=== PATIENT | male | born 1940 | race Caucasian/White ===

== ENCOUNTER → 2016-03-30 | Outpatient (CLI) | payer BC, MEDICARE ==
[~2016-03-30] MED LIST: /PANT40TA OR; ALLO300T OR; ASPI81TA83 OR; CRES40TA OR; Lasix PO; METO25TA2 OR; NEUR400C OR; NIAS500T2 OR; NITRO; PLAV75TA2 OR; RAMI25CA OR; VITAMIN D50000 UNT OR
--- NOTE | 2016-03-30 11:13 | REP ---
CHEST X-RAY: Three views. HISTORY: Acute bronchitis. Shortness of breath and cough. Comparison is made with prior radiographs from January 17, 2015. FINDINGS: The patient is status post prior median sternotomy. Heart is mildly enlarged, cardiothoracic ratio measuring 17.2 cm/34.7 cm. The aorta is tortuous. Mediastinal clips are noted. Pleural angles are sharp. No infiltrate is seen. Interstitial markings are somewhat increased however bilaterally. There is new plate-like atelectasis in the lingular segment of the left upper lobe. IMPRESSION: Prior sternotomy. Mild cardiomegaly. Linear fibrosis versus discoid atelectasis in the lingular segment of the left upper lobe. Otherwise no acute disease. Signed by Joel Cooney MD 03/30/2016 02:00 P
== END ==
LOC: M ADAMS 10:21
PROVIDERS: ATTEND Physician Assistant Medical
DX: I51.7 Cardiomegaly (principal); J20.9 Acute bronchitis, unspecified; Z98.890 Other specified postprocedural states

== ENCOUNTER → 2016-04-18 | Outpatient (REF) | payer BC, MEDICARE ==
[2016-04-18 13:14] LABS: ALBUMIN 3.8 GM/DL (3.2-5.2); ALBUMIN/GLOBULIN RATIO 1.12 (1.00-1.93); ALKALINE PHOSPHATASE 86 U/L (45-117); ALT/SGPT 30 U/L (12-78); ANION GAP 7 MEQ/L (8-16); AST/SGOT 22 U/L (15-37); BILIRUBIN,TOTAL 0.4 MG/DL (0.2-1.0); BLOOD UREA NITROGEN 18 MG/DL (7-18); CALCIUM LEVEL 9.7 MG/DL (8.8-10.2); CARBON DIOXIDE LEVEL 30 MEQ/L (21-32); CHLORIDE LEVEL 107 MEQ/L (98-107); CHOLESTEROL LEVEL 199 MG/DL (<200); CREATININE FOR GFR 0.87 MG/DL (0.70-1.30); GLOMERULAR FILTRATION RATE > 60.0 (>42); GLUCOSE, FASTING 79 MG/DL (83-110); POTASSIUM SERUM 4.1 MEQ/L (3.5-5.1); SODIUM LEVEL 144 MEQ/L (136-145); TOTAL PROTEIN 7.2 GM/DL (6.4-8.2); TRIGLYCERIDES LEVEL 242 MG/DL (<150); URIC ACID 3.9 MG/DL (3.5-7.2)
== END ==
LOC: M LABDRWAD 12:17
PROVIDERS: ATTEND Emergency Medicine
DX: E29.1 Testicular hypofunction (principal); I10 Essential (primary) hypertension; M10.9 Gout, unspecified; E55.9 Vitamin D deficiency, unspecified
CPT/HCPCS: 80053; 80061; 82306; 84402; 84403; 84550; G0103

== ENCOUNTER → 2016-07-03 | Outpatient (CLI) | payer BC, MEDICARE ==
--- NOTE | 2016-07-04 07:39 | REP ---
Clinical: Acute/chronic cough. Technique: PA and lateral. Comparison: 03/30/2016. Findings: Mediastinum and cardiac silhouette appear normal. Evidence of prior sternotomy and CABG noted. Lung diaz demonstrate diffuse chronic and coarsened interstitial changes. Differential diagnosis includes chronic reactive airway disease/asthma and acute bronchitis. No focal consolidation. No effusion. No pneumothorax. Skeletal structures intact. Impression: Diffuse coarsened interstitial changes. Differential diagnosis includes chronic disease, reactive airway disease/asthma, and acute bronchitis. No focal consolidation. Signed by Yuval Forbes MD 07/04/2016 07:31 A
== END ==
LOC: M ADAMS 08:22
PROVIDERS: ATTEND Emergency Medicine
DX: J20.9 Acute bronchitis, unspecified (principal)

== ENCOUNTER → 2016-07-06 | Outpatient (REF) | payer BC, MEDICARE ==
[2016-07-06 13:50] LABS: BASO % 0.1 % (0.0-1.0); EOS % 0.1 % (0.0-3.0); LARGE UNSTAINED CELL # 0.1 K/mm3 (0.0-0.4); LYMPH # 0.8 K/mm3 (1.5-4.5); LYMPH % 8.4 % (24.0-44.0); MEAN CORPUSCULAR HEMOGLOBIN 32.3 pg (27.0-33.0); MEAN CORPUSCULAR HGB CONC 33.8 g/dl (32.0-36.5); MEAN CORPUSCULAR VOLUME 95.6 fl (80.0-96.0); MONO # 0.3 K/mm3 (0.0-0.8); MONO % 3.8 % (0.0-5.0); NEUTROPHILS % 86.4 % (36.0-66.0); PLATELET COUNT, AUTOMATED 157 k/mm3 (150-450); WHITE BLOOD COUNT 8.2 K/mm3 (4.0-10.0)
== END ==
LOC: M LAB REF 12:47
PROVIDERS: ATTEND Internal Medicine Pulmonary Disease
DX: R05 Cough (principal)

== ENCOUNTER → 2016-10-16 | Outpatient (REF) | payer BC, MEDICARE ==
[~2016-10-16] MED LIST changes: +ALLO100T PO; +ANDR1.62 TOP; +ASPI1TAB15 PO; +AZEL1SPR3; +BENZ200C53 PO; +CIAL2.5T PO; +CLOP75TA2 PO; +CRES40TA PO; +DRIS50002 PO; +FLON1SPR; +FLUTISP; +GABA-283 PO; +GABA600T PO; +GUAI5ELAC PO; +LASI20TA PO; +LORA10TA2 PO; +NITR4TASL SL; +PANT40TA2 PO; +PERCOCET PO
[2016-10-16 13:54] LABS: ALBUMIN 3.8 GM/DL (3.2-5.2); ALBUMIN/GLOBULIN RATIO 1.31 (1.00-1.93); ALKALINE PHOSPHATASE 55 U/L (45-117); ALT/SGPT 23 U/L (12-78); ANION GAP 7 MEQ/L (8-16); AST/SGOT 19 U/L (15-37); BILIRUBIN,TOTAL 0.6 MG/DL (0.2-1.0); BLOOD UREA NITROGEN 19 MG/DL (7-18); CALCIUM LEVEL 9.1 MG/DL (8.8-10.2); CARBON DIOXIDE LEVEL 27 MEQ/L (21-32); CHLORIDE LEVEL 109 MEQ/L (98-107); CHOLESTEROL LEVEL 131 MG/DL (<200); CREATININE FOR GFR 0.82 MG/DL (0.70-1.30); GLOMERULAR FILTRATION RATE > 60.0 (>42); GLUCOSE, FASTING 88 MG/DL (83-110); POTASSIUM SERUM 4.3 MEQ/L (3.5-5.1); SODIUM LEVEL 143 MEQ/L (136-145); TOTAL PROTEIN 6.7 GM/DL (6.4-8.2); TRIGLYCERIDES LEVEL 187 MG/DL (<150); URIC ACID 4.5 MG/DL (3.5-7.2)
== END ==
LOC: M LABDRAW1 11:59
PROVIDERS: ATTEND Emergency Medicine
DX: I10 Essential (primary) hypertension (principal); M10.9 Gout, unspecified; E55.9 Vitamin D deficiency, unspecified; E78.2 Mixed hyperlipidemia

== ENCOUNTER → 2017-05-06 | Outpatient (REF) | payer BC, MEDICARE ==
[2017-05-06 13:04] LABS: ALBUMIN 3.3 GM/DL (3.2-5.2); ALBUMIN/GLOBULIN RATIO 0.92 (1.00-1.93); ALKALINE PHOSPHATASE 82 U/L (45-117); ALT/SGPT 20 U/L (12-78); ANION GAP 7 MEQ/L (8-16); AST/SGOT 16 U/L (7-37); BILIRUBIN,TOTAL 0.4 MG/DL (0.2-1.0); BLOOD UREA NITROGEN 12 MG/DL (7-18); CALCIUM LEVEL 8.7 MG/DL (8.8-10.2); CARBON DIOXIDE LEVEL 29 MEQ/L (21-32); CHLORIDE LEVEL 105 MEQ/L (98-107); CHOLESTEROL LEVEL 128 MG/DL (<200); CREATININE FOR GFR 0.72 MG/DL (0.70-1.30); GLOMERULAR FILTRATION RATE > 60.0 (>42); GLUCOSE, FASTING 83 MG/DL (70-100); HDL CHOLESTEROL 40 MG/DL (>40); LDL CHOLESTEROL 50.2 MG/DL (<100); NON-HDL-C 88 MG/DL; POTASSIUM SERUM 3.9 MEQ/L (3.5-5.1); PSA SCREENING 2.67 NG/ML (< 4.0); SODIUM LEVEL 141 MEQ/L (136-145); TOTAL PROTEIN 6.9 GM/DL (6.4-8.2); TRIGLYCERIDES LEVEL 189 MG/DL (<150)
[2017-05-06 20:53] LABS: TOTAL 25(OH) VITAMIN D 34.9 NG/ML (30.0-100.0)
[2017-05-08 00:06] LABS: TESTOSTERONE FREE (DIRECT) 3.6 pg/mL (6.6-18.1)
== END ==
LOC: M LABDRAW1 11:12
DX: E29.1 Testicular hypofunction (principal); I10 Essential (primary) hypertension; E78.2 Mixed hyperlipidemia; M10.9 Gout, unspecified; E55.9 Vitamin D deficiency, unspecified

== ENCOUNTER → 2017-05-15 | Outpatient (REF) | payer BC, MEDICARE | LOC: M SMT 16:50 | DX: R97.20 Elevated prostate specific antigen [PSA] (principal) | CPT/HCPCS: 87086 ==

== ENCOUNTER → 2017-08-07 | Outpatient (REF) | payer BC, MEDICARE ==
[2017-08-07 19:41] LABS: PSA SCREENING 0.91 NG/ML (< 4.0)
== END ==
LOC: M SMT 10:27
DX: R97.20 Elevated prostate specific antigen [PSA] (principal)
CPT/HCPCS: G0103

== ENCOUNTER → 2017-10-17 | Outpatient (REF) | payer BC, MEDICARE ==
[2017-10-17 20:07] LABS: HEMATOCRIT 42.4 % (42.0-52.0); HEMOGLOBIN 13.9 g/dl (13.5-17.5); MEAN CORPUSCULAR HEMOGLOBIN 31.3 pg (27.0-33.0); MEAN CORPUSCULAR HGB CONC 32.8 g/dl (32.0-36.5); MEAN CORPUSCULAR VOLUME 95.5 fl (80.0-96.0); PLATELET COUNT, AUTOMATED 189 10^3/uL (150-450); RED BLOOD COUNT 4.44 10^6/uL (4.30-6.10); RED CELL DISTRIBUTION WIDTH 14.6 % (11.5-14.5); WHITE BLOOD COUNT 7.4 10^3/uL (4.0-10.0)
[2017-10-17 20:10] LABS: ALKALINE PHOSPHATASE 76 U/L (45-117); ALT/SGPT 23 U/L (12-78); ANION GAP 8 MEQ/L (8-16); AST/SGOT 17 U/L (7-37); BLOOD UREA NITROGEN 13 MG/DL (7-18); CALCIUM LEVEL 9.2 MG/DL (8.8-10.2); CARBON DIOXIDE LEVEL 28 MEQ/L (21-32); CHLORIDE LEVEL 109 MEQ/L (98-107); CREATININE FOR GFR 0.85 MG/DL (0.70-1.30); GLOMERULAR FILTRATION RATE > 60.0 (>42); GLUCOSE, FASTING 77 MG/DL (70-100); POTASSIUM SERUM 4.7 MEQ/L (3.5-5.1); SODIUM LEVEL 145 MEQ/L (136-145)
[2017-10-17 20:11] LABS: ALBUMIN 3.8 GM/DL (3.2-5.2); ALBUMIN/GLOBULIN RATIO 1.09 (1.00-1.93); BILIRUBIN,TOTAL 0.4 MG/DL (0.2-1.0); FREE T4 0.84 NG/DL (0.76-1.46); THYROID STIMULATING HORMONE 0.846 uIU/ML (0.358-3.740); TOTAL PROTEIN 7.3 GM/DL (6.4-8.2)
[2017-10-17 20:13] LABS: FOLATE 8.1 NG/ML; VITAMIN B12 LEVEL 343 PG/ML
== END ==
LOC: M SFHCADAM 15:04
DX: K21.9 Gastro-esophageal reflux disease without esophagitis (principal); D64.9 Anemia, unspecified; R25.1 Tremor, unspecified; I25.10 Atherosclerotic heart disease of native coronary artery without angina pectoris
CPT/HCPCS: 82746

== ENCOUNTER → 2017-11-15 | Outpatient (REF) | payer BC, MEDICARE ==
[2017-11-15 12:34] LABS: MEAN CORPUSCULAR HEMOGLOBIN 31.5 pg (27.0-33.0); MEAN CORPUSCULAR HGB CONC 33.3 g/dl (32.0-36.5); MEAN CORPUSCULAR VOLUME 94.6 fl (80.0-96.0); PLATELET COUNT, AUTOMATED 211 10^3/uL (150-450); RED BLOOD COUNT 4.44 10^6/uL (4.30-6.10); RED CELL DISTRIBUTION WIDTH 14.3 % (11.5-14.5); WHITE BLOOD COUNT 7.5 10^3/uL (4.0-10.0)
[2017-11-15 12:52] LABS: ALBUMIN 3.9 GM/DL (3.2-5.2); ALBUMIN/GLOBULIN RATIO 1.03 (1.00-1.93); ALKALINE PHOSPHATASE 79 U/L (45-117); ALT/SGPT 20 U/L (12-78); ANION GAP 4 MEQ/L (8-16); AST/SGOT 16 U/L (7-37); BILIRUBIN,DIRECT 0.2 MG/DL (0.0-0.2); BILIRUBIN,TOTAL 0.6 MG/DL (0.2-1.0); BLOOD UREA NITROGEN 14 MG/DL (7-18); CALCIUM LEVEL 8.9 MG/DL (8.8-10.2); CARBON DIOXIDE LEVEL 30 MEQ/L (21-32); CHLORIDE LEVEL 106 MEQ/L (98-107); CHOLESTEROL LEVEL 115 MG/DL (<200); CHOLESTEROL RISK RATIO 2.738 (<5); CREATININE FOR GFR 0.85 MG/DL (0.70-1.30); GLOMERULAR FILTRATION RATE > 60.0 (>42); GLUCOSE, FASTING 83 MG/DL (70-100); HDL CHOLESTEROL 42 MG/DL (>40); LDL CHOLESTEROL 39 MG/DL (<100); NON-HDL-C 73 MG/DL; POTASSIUM SERUM 4.1 MEQ/L (3.5-5.1); SODIUM LEVEL 140 MEQ/L (136-145); TOTAL PROTEIN 7.7 GM/DL (6.4-8.2); TRIGLYCERIDES LEVEL 170 MG/DL (<150)
== END ==
LOC: M LABDRWAD 12:12
DX: I25.10 Atherosclerotic heart disease of native coronary artery without angina pectoris (principal)
CPT/HCPCS: 80076

== ENCOUNTER → 2018-03-14 | Outpatient (CLI) | payer BC, MEDICARE ==
[~2018-03-14] MED LIST changes: -BENZ200C53 PO; +BENZ200C70 PO; -DRIS50002 PO; +DRIS50003 PO; -GABA-283 PO; +GABA-845 PO; -GABA600T PO; +GABA600T4 PO; +GUAI1SOL7 PO; -GUAI5ELAC PO; +ISOVUE-370 76% 100ML VIAL (Q9967) As Ordered ONE; -LASI20TA PO; +LASI20TA3 PO; -LORA10TA2 PO; +LORA10TA3 PO; -PANT40TA2 PO; +PANT40TA3 PO
--- NOTE | 2018-03-14 14:43 | REP ---
CT ANGIOGRAM ABDOMEN PELVIS WITH IV CONTRAST ONLY: 03/14/2018. COMPARISON: CT abdomen pelvis 01/01/2017. CLINICAL HISTORY: Abdominal aortic aneurysm, assess for stent graft endoleak. TECHNIQUE: The patient received a bolus 100 ml I[address] angiogram techniques utilized in the abdomen pelvis. Coronal and sagittal reconstruction with standard views and MIP coronal reconstructions with curve reformatting and reconstructions of the right and left iliac vessels and aorta. 3-D surface renderings also construct. NONVASCULAR FINDINGS: CT ABDOMEN: Lung bases with minor dependent atelectatic and fibrotic changes without effusion or infiltrate. Heart size unchanged. No hiatal hernia. Liver, spleen, gallbladder, pancreas and left adrenal gland are normal. The right adrenal gland shows a 1.6 cm low density nodule unchanged likely an adrenal adenoma. No calcified gallstone is seen. Multiple renal cysts on the left are unchanged. There is lobation. No hydronephrosis, hydroureter or ureteral stone. The small bowel loops are not abnormally dilated colon with stool and gas scattered throughout the abdominal portions. Lung windows show no perforation or free air. There is no ascites or abscess. Bone windows are unchanged. Degenerative disc changes at all lumbar levels sparing the L4-5. No acute compression or destructive lesion. There is facet arthropathy. Lower thoracic spine and the visualized ribs are intact. CT PELVIS: The sacrum, pelvis, hips, SI joints and pubic rami show only minor degenerative change without destructive lesion or fracture. The distal left colon and sigmoid show some diverticulosis without diverticulitis, colitis or mass. No abdominal or pelvic lymphadenopathy. There are no inflammatory changes about the cecum. No ventral midline hernia. I see no inguinal hernia or adenopathy. There are surgical clips about the right inguinal canal overlying the femoral vessels. The bladder without wall thickening mass or stone. Prostate enlarged with some calcifications. VASCULAR FINDINGS: There is a stent graft is noted from the level of the renal artery takeoffs into the distal common iliac arteries. Contrast seen throughout the stent grafts. However, there is a zone of hyperdensity anterior to the proximal half of the graft in its midportion well below the upper most graft limit. Ir is extending for a few centimeters and adjacent to this is contrast filled inferior mesenteric artery. I see no other abnormal finding related to the graft. Ectasia of the iliac vessels and atherosclerotic calcifications are noted of the external iliac and common femoral arteries. IMPRESSION: 1. There is an endoleak of the stent graft overlying the mid portion of the aortic aspect of the graft anteriorly and I suspect this is a type 2 endoleak with retrograde flow from the FRANCK. 2. Abdominal aortic aneurysm. Ectasia of the iliac vessels as before. 3. Renal cysts, diverticulosis of the sigmoid and distal left colon and a stable nodule in the right adrenal gland most consistent with adrenal adenoma as before. No other changes. Electronically Signed by Jon Blanco MD 03/14/2018 05:01 P
== END ==
LOC: M RAD 09:55
PROVIDERS: ATTEND Surgery Vascular Surgery
DX: I71.4 Abdominal aortic aneurysm, without rupture (principal)
CPT/HCPCS: 74174; Q9967

== ENCOUNTER → 2018-03-19 | Outpatient (REF) | payer BC, MEDICARE ==
[~2018-03-19] MED LIST changes: -ISOVUE-370 76% 100ML VIAL (Q9967) As Ordered ONE
[2018-03-19 13:08] LABS: HEMATOCRIT 42.1 % (42.0-52.0); HEMOGLOBIN 13.8 g/dl (13.5-17.5); MEAN CORPUSCULAR HEMOGLOBIN 31.5 pg (27.0-33.0); MEAN CORPUSCULAR HGB CONC 32.8 g/dl (32.0-36.5); MEAN CORPUSCULAR VOLUME 96.1 fl (80.0-96.0); PLATELET COUNT, AUTOMATED 182 10^3/uL (150-450); RED BLOOD COUNT 4.38 10^6/uL (4.30-6.10); WHITE BLOOD COUNT 6.5 10^3/uL (4.0-10.0)
[2018-03-19 13:24] LABS: ALBUMIN 3.8 GM/DL (3.2-5.2); ALT/SGPT 16 U/L (12-78); BILIRUBIN,TOTAL 0.4 MG/DL (0.2-1.0); BLOOD UREA NITROGEN 22 MG/DL (7-18); CALCIUM LEVEL 8.9 MG/DL (8.8-10.2); CARBON DIOXIDE LEVEL 29 MEQ/L (21-32); CHLORIDE LEVEL 107 MEQ/L (98-107); CHOLESTEROL LEVEL 116 MG/DL (<200); CHOLESTEROL RISK RATIO 2.577 (<5); CREATININE FOR GFR 0.73 MG/DL (0.70-1.30); GLOMERULAR FILTRATION RATE > 60.0 (>42); GLUCOSE, FASTING 83 MG/DL (70-100); HDL CHOLESTEROL 45 MG/DL (>40); LDL CHOLESTEROL 47 MG/DL (<100); NON-HDL-C 71 MG/DL; POTASSIUM SERUM 4.6 MEQ/L (3.5-5.1); SODIUM LEVEL 141 MEQ/L (136-145); TOTAL PROTEIN 6.8 GM/DL (6.4-8.2); TRIGLYCERIDES LEVEL 120 MG/DL (<150); URIC ACID 3.1 MG/DL (3.5-7.2)
[2018-03-19 13:26] LABS: TOTAL 25(OH) VITAMIN D 43.2 NG/ML (30.0-100.0)
[2018-03-19 13:27] LABS: VITAMIN B12 LEVEL 202 PG/ML
[2018-03-19 17:07] LABS: FOLATE 8.1 NG/ML
== END ==
LOC: M SFHCADAM 08:01
PROVIDERS: ATTEND Physician Assistant
DX: I25.10 Atherosclerotic heart disease of native coronary artery without angina pectoris (principal); K21.9 Gastro-esophageal reflux disease without esophagitis; G25.0 Essential tremor; Z87.39 Personal history of other diseases of the musculoskeletal system and connective tissue; E55.9 Vitamin D deficiency, unspecified; E53.8 Deficiency of other specified B group vitamins

== ENCOUNTER → 2018-03-27 | Outpatient (REF) | payer BC, MEDICARE | LOC: M SFHCADAM 07:52 | PROVIDERS: ATTEND Physician Assistant | DX: E53.8 Deficiency of other specified B group vitamins (principal) ==

== ENCOUNTER → 2018-04-09 | Outpatient (REF) | payer BC, MEDICARE ==
[2018-04-09 13:09] LABS: BASO % 0.5 % (0.0-1.0); EOS # 0.1 10^3/uL (0.0-0.50); EOS % 1.8 % (0.0-3.0); HEMATOCRIT 40.4 % (42.0-52.0); HEMOGLOBIN 13.2 g/dl (13.5-17.5); LYMPH # 1.2 10^3/uL (1.5-4.5); LYMPH % 18.8 % (24.0-44.0); MEAN CORPUSCULAR HEMOGLOBIN 30.9 pg (27.0-33.0); MEAN CORPUSCULAR HGB CONC 32.7 g/dl (32.0-36.5); MEAN CORPUSCULAR VOLUME 94.6 fl (80.0-96.0); MONO # 0.6 10^3/uL (0.0-0.8); MONO % 10.3 % (0.0-5.0); NEUTROPHILS # 4.2 10^3/uL (1.8-7.7); NEUTROPHILS % 68.3 % (36.0-66.0); PLATELET COUNT, AUTOMATED 193 10^3/uL (150-450); RED BLOOD COUNT 4.27 10^6/uL (4.30-6.10); WHITE BLOOD COUNT 6.2 10^3/uL (4.0-10.0)
[2018-04-09 13:14] LABS: BLOOD UREA NITROGEN 18 MG/DL (7-18); CALCIUM LEVEL 8.6 MG/DL (8.8-10.2); CARBON DIOXIDE LEVEL 27 MEQ/L (21-32); CHLORIDE LEVEL 107 MEQ/L (98-107); CREATININE FOR GFR 0.87 MG/DL (0.70-1.30); GLOMERULAR FILTRATION RATE > 60.0 (>42); GLUCOSE, FASTING 90 MG/DL (70-100); POTASSIUM SERUM 4.4 MEQ/L (3.5-5.1); SODIUM LEVEL 141 MEQ/L (136-145)
[2018-04-09 13:20] LABS: INR 1.03; PROTHROMBIN TIME 13.6 SECONDS (12.1-14.4)
[2018-04-09 13:21] LABS: PARTIAL THROMBOPLASTIN TIME 29.2 SECONDS (25.4-37.6)
== END ==
LOC: M LABDRWAD 12:25
PROVIDERS: ATTEND Surgery Vascular Surgery
DX: Z01.818 Encounter for other preprocedural examination (principal); D69.8 Other specified hemorrhagic conditions

== ENCOUNTER → 2018-10-30 | Outpatient (REF) | payer BC, MEDICARE ==
[~2018-10-30] MED LIST changes: -/PANT40TA OR; +PROT1TAB2 OR
[2018-10-30 12:29] LABS: HEMATOCRIT 40.4 % (42.0-52.0); HEMOGLOBIN 13.2 g/dl (13.5-17.5); MEAN CORPUSCULAR HEMOGLOBIN 30.8 pg (27.0-33.0); MEAN CORPUSCULAR HGB CONC 32.7 g/dl (32.0-36.5); MEAN CORPUSCULAR VOLUME 94.4 fl (80.0-96.0); PLATELET COUNT, AUTOMATED 213 10^3/uL (150-450); RED BLOOD COUNT 4.28 10^6/uL (4.30-6.10); WHITE BLOOD COUNT 6.7 10^3/uL (4.0-10.0)
[2018-10-30 12:56] LABS: ALBUMIN 3.8 GM/DL (3.2-5.2); BILIRUBIN,TOTAL 0.4 MG/DL (0.2-1.0); BLOOD UREA NITROGEN 14 MG/DL (7-18); CALCIUM LEVEL 9.5 MG/DL (8.8-10.2); CARBON DIOXIDE LEVEL 28 MEQ/L (21-32); CHLORIDE LEVEL 105 MEQ/L (98-107); CREATININE FOR GFR 0.84 MG/DL (0.70-1.30); GLOMERULAR FILTRATION RATE > 60.0 (>42); GLUCOSE, FASTING 82 MG/DL (70-100); POTASSIUM SERUM 4.6 MEQ/L (3.5-5.1); SODIUM LEVEL 139 MEQ/L (136-145); TOTAL PROTEIN 7.4 GM/DL (6.4-8.2); VITAMIN B12 LEVEL 582 PG/ML
[2018-10-30 14:15] LABS: ALT/SGPT 23 U/L (12-78)
[2018-10-30 16:07] LABS: FOLATE 11.3 NG/ML
== END ==
LOC: M SFHCADAM 09:59
PROVIDERS: ATTEND Physician Assistant
DX: E53.8 Deficiency of other specified B group vitamins (principal); I25.10 Atherosclerotic heart disease of native coronary artery without angina pectoris

== ENCOUNTER → 2019-03-30 | Outpatient (REF) | payer BC, MEDICARE ==
[2019-03-30 13:41] LABS: BLOOD UREA NITROGEN 15 MG/DL (7-18); CREATININE FOR GFR 0.81 MG/DL (0.70-1.30); GLOMERULAR FILTRATION RATE > 60.0 (>42)
== END ==
LOC: M LABDRWAD 12:36
DX: I71.4 Abdominal aortic aneurysm, without rupture (principal)

== ENCOUNTER → 2019-04-07 | Outpatient (REF) | payer BC, MEDICARE ==
[2019-04-07 13:10] LABS: HEMATOCRIT 41.9 % (42.0-52.0); HEMOGLOBIN 13.3 g/dl (13.5-17.5); MEAN CORPUSCULAR HEMOGLOBIN 30.6 pg (27.0-33.0); MEAN CORPUSCULAR HGB CONC 31.7 g/dl (32.0-36.5); MEAN CORPUSCULAR VOLUME 96.5 fl (80.0-96.0); PLATELET COUNT, AUTOMATED 201 10^3/uL (150-450); RED BLOOD COUNT 4.34 10^6/uL (4.30-6.10); WHITE BLOOD COUNT 7.3 10^3/uL (4.0-10.0)
[2019-04-07 13:16] LABS: ALBUMIN 4.2 GM/DL (3.2-5.2); ALT/SGPT 23 U/L (12-78); BILIRUBIN,TOTAL 0.5 MG/DL (0.2-1.0); BLOOD UREA NITROGEN 18 MG/DL (7-18); CALCIUM LEVEL 9.6 MG/DL (8.8-10.2); CARBON DIOXIDE LEVEL 32 MEQ/L (21-32); CHLORIDE LEVEL 104 MEQ/L (98-107); CHOLESTEROL LEVEL 151 MG/DL (<200); CREATININE FOR GFR 0.88 MG/DL (0.70-1.30); GLOMERULAR FILTRATION RATE > 60.0 (>42); GLUCOSE, FASTING 86 MG/DL (70-100); HDL CHOLESTEROL 51 MG/DL (>40); LDL CHOLESTEROL 64 MG/DL (<100); NON-HDL-C 100 MG/DL; POTASSIUM SERUM 4.7 MEQ/L (3.5-5.1); SODIUM LEVEL 141 MEQ/L (136-145); TOTAL PROTEIN 7.6 GM/DL (6.4-8.2); TRIGLYCERIDES LEVEL 180 MG/DL (<150)
[2019-04-07 13:20] LABS: FOLATE 10.8 NG/ML; VITAMIN B12 LEVEL 674 PG/ML
== END ==
LOC: M SFHCADAM 07:52
PROVIDERS: ATTEND Physician Assistant
DX: I25.10 Atherosclerotic heart disease of native coronary artery without angina pectoris (principal); D63.8 Anemia in other chronic diseases classified elsewhere; E53.8 Deficiency of other specified B group vitamins; N52.9 Male erectile dysfunction, unspecified

== ENCOUNTER → 2019-11-05 | Outpatient (REF) | payer BC, MEDICARE ==
[~2019-11-05] MED LIST changes: +ASPI-546 PO; -ASPI1TAB15 PO; +PANT40TA29 PO; -PANT40TA3 PO
[2019-11-05 13:42] LABS: HEMATOCRIT 38.8 % (42.0-52.0); HEMOGLOBIN 12.5 g/dl (13.5-17.5); MEAN CORPUSCULAR HEMOGLOBIN 30.4 pg (27.0-33.0); MEAN CORPUSCULAR HGB CONC 32.2 g/dl (32.0-36.5); MEAN CORPUSCULAR VOLUME 94.4 fl (80.0-96.0); PLATELET COUNT, AUTOMATED 203 10^3/uL (150-450); RED BLOOD COUNT 4.11 10^6/uL (4.30-6.10); WHITE BLOOD COUNT 6.6 10^3/uL (4.0-10.0)
[2019-11-05 14:52] LABS: ALBUMIN 3.5 GM/DL (3.2-5.2); ALT/SGPT 16 U/L (12-78); BILIRUBIN,TOTAL 0.3 MG/DL (0.2-1.0); BLOOD UREA NITROGEN 13 MG/DL (7-18); CARBON DIOXIDE LEVEL 28 MEQ/L (21-32); CHLORIDE LEVEL 105 MEQ/L (98-107); CREATININE FOR GFR 0.68 MG/DL (0.70-1.30); GLOMERULAR FILTRATION RATE > 60.0 (>42); GLUCOSE, FASTING 75 MG/DL (70-100); POTASSIUM SERUM 4.5 MEQ/L (3.5-5.1); SODIUM LEVEL 138 MEQ/L (136-145); TOTAL PROTEIN 7.2 GM/DL (6.4-8.2)
== END ==
LOC: M SFHCADAM 12:40
PROVIDERS: ATTEND Physician Assistant
DX: I71.4 Abdominal aortic aneurysm, without rupture (principal); D63.8 Anemia in other chronic diseases classified elsewhere

== ENCOUNTER → 2020-01-15 | Outpatient (CLI) | payer BC, MEDICARE | LOC: M LABSMTC 14:34 | PROVIDERS: ATTEND Family Medicine | DX: Z20.828 Contact with and (suspected) exposure to other viral communicable diseases (principal) ==

== ENCOUNTER → 2020-02-05 | Outpatient (CLI) | payer BC, MEDICARE ==
--- NOTE | 2020-02-05 08:19 | REP ---
INDICATION: CHRONIC COUGH COMPARISON: 09/19/2016 TECHNIQUE: Axial noncontrast images from the thoracic inlet to the upper abdomen with coronal and sagittal reformations. This CT examination was performed using the following dose reduction techniques: Automated exposure control, adjustment of mA and/or kv according to the patient's size, and use of iterative reconstruction technique. FINDINGS: Lung diaz demonstrate moderate emphysematous changes with mild bronchiectasis along with mild scattered subpleural fibrosis relatively similar to prior examination. Stable 4 mm nodule in the left lower lobe (image 77) is unchanged. No focal consolidation. No obvious new nodule or mass lesion. No pleural effusion. No pneumothorax. No significant adenopathy. Atherosclerotic changes to the thoracic aorta and coronary arteries noted without aortic aneurysm or cardiomegaly. No pericardial effusion. Evidence for prior sternotomy and CABG noted. Enlarged thyroid gland with left lobe dominance identified. Surrounding musculoskeletal structures are intact and without acute osseous abnormality. IMPRESSION: 1. Moderate emphysematous changes with mild scattered subpleural fibrosis. 2. No acute mediastinal or pleuroparenchymal process appreciated. 3. Prominent thyroid gland with left lobe dominance. <Electronically signed by Yuval Forbes > 02/05/20 [id number]
== END ==
LOC: M RAD 07:47
PROVIDERS: ATTEND Physician Assistant
DX: R05 Cough (principal); F17.200 Nicotine dependence, unspecified, uncomplicated; J43.9 Emphysema, unspecified; E04.9 Nontoxic goiter, unspecified

== ENCOUNTER → 2020-02-22 | Outpatient (REF) | payer BC, MEDICARE ==
[2020-02-22 13:05] LABS: BLOOD UREA NITROGEN 14 MG/DL (7-18); CREATININE FOR GFR 0.75 MG/DL (0.70-1.30); GLOMERULAR FILTRATION RATE > 60.0 (>42)
== END ==
LOC: M LABDRWAD 12:07
PROVIDERS: ATTEND Radiology Vascular & Interventional Radiology
DX: I71.4 Abdominal aortic aneurysm, without rupture (principal)

== ENCOUNTER → 2020-03-09 | Outpatient (REF) | payer BC, MEDICARE ==
[2020-03-09 18:22] LABS: FREE T4 0.88 NG/DL (0.76-1.46); THYROID STIMULATING HORMONE 1.11 uIU/ML (0.358-3.740)
== END ==
LOC: M SFHCADAM 13:38
PROVIDERS: ATTEND Physician Assistant
DX: E04.9 Nontoxic goiter, unspecified (principal)

== ENCOUNTER → 2020-04-15 | Outpatient (REF) | payer BC, MEDICARE ==
[2020-04-15 13:11] LABS: HEMATOCRIT 41.6 % (42.0-52.0); HEMOGLOBIN 13.3 g/dl (13.5-17.5); MEAN CORPUSCULAR HEMOGLOBIN 29.8 pg (27.0-33.0); MEAN CORPUSCULAR VOLUME 93.1 fl (80.0-96.0); PLATELET COUNT, AUTOMATED 234 10^3/uL (150-450); RED BLOOD COUNT 4.47 10^6/uL (4.30-6.10); WHITE BLOOD COUNT 7.4 10^3/uL (4.0-10.0)
[2020-04-15 13:46] LABS: ALBUMIN 3.4 GM/DL (3.2-5.2); ALT/SGPT 17 U/L (12-78); BILIRUBIN,DIRECT < 0.1 MG/DL (0.0-0.2); BILIRUBIN,TOTAL 0.4 MG/DL (0.2-1.0); BLOOD UREA NITROGEN 16 MG/DL (7-18); CARBON DIOXIDE LEVEL 31 MEQ/L (21-32); CHLORIDE LEVEL 105 MEQ/L (98-107); CHOLESTEROL LEVEL 123 MG/DL (<200); CHOLESTEROL RISK RATIO 2.928 (<5); CREATININE FOR GFR 0.88 MG/DL (0.70-1.30); GLOMERULAR FILTRATION RATE > 60.0 (>42); GLUCOSE, FASTING 64 MG/DL (70-100); HDL CHOLESTEROL 42 MG/DL (>40); LDL CHOLESTEROL 50 MG/DL (<100); NON-HDL-C 81 MG/DL; POTASSIUM SERUM 4.1 MEQ/L (3.5-5.1); SODIUM LEVEL 141 MEQ/L (136-145); TOTAL PROTEIN 7.1 GM/DL (6.4-8.2); TRIGLYCERIDES LEVEL 154 MG/DL (<150)
== END ==
LOC: M LABDRWAD 12:12
DX: I10 Essential (primary) hypertension (principal); E78.49 Other hyperlipidemia

== ENCOUNTER 2020-06-06 00:25 | Emergency (ER) | payer BC, MEDICARE ==
[~2020-06-06] VITALS: Ht 177.8 cm; Wt 90.7 kg
[2020-06-06] MEDS ORDERED: PRIM50TA6 PO (00:41)
[2020-06-06] MEDS ORDERED: CLOP75TA2 PO (00:41)
[2020-06-06 01:33] LABS: BASO % 0.4 % (0.0-1.0); EOS # 0.1 10^3/uL (0.0-0.5); EOS % 1.5 % (0.0-3.0); HEMOGLOBIN 11.7 g/dl (13.5-17.5); LYMPH # 1.5 10^3/uL (1.5-5.0); LYMPH % 20.3 % (24.0-44.0); MEAN CORPUSCULAR HEMOGLOBIN 30.3 pg (27.0-33.0); MEAN CORPUSCULAR HGB CONC 32.5 g/dl (32.0-36.5); MEAN CORPUSCULAR VOLUME 93.3 fl (80.0-96.0); MONO # 0.7 10^3/uL (0.0-0.8); MONO % 9.5 % (2.0-8.0); NEUTROPHILS # 5.2 10^3/uL (1.5-8.5); NEUTROPHILS % 67.9 % (36.0-66.0); PLATELET COUNT, AUTOMATED 178 10^3/uL (150-450); RED BLOOD COUNT 3.86 10^6/uL (4.30-6.10); WHITE BLOOD COUNT 7.6 10^3/uL (4.0-10.0)
[2020-06-06 02:04] LABS: ALBUMIN 2.9 GM/DL (3.2-5.2); ALT/SGPT 18 U/L (12-78); BILIRUBIN,DIRECT < 0.1 MG/DL (0.0-0.2); BILIRUBIN,TOTAL 0.3 MG/DL (0.2-1.0); BLOOD UREA NITROGEN 25 MG/DL (7-18); CALCIUM LEVEL 8.5 MG/DL (8.8-10.2); CARBON DIOXIDE LEVEL 30 MEQ/L (21-32); CHLORIDE LEVEL 108 MEQ/L (98-107); CK-MB VALUE MASS 1.9 NG/ML (<3.6); CPK CREATINE PHOSPHOKINASE 185 U/L (39-308); CREATININE FOR GFR 0.76 MG/DL (0.70-1.30); GLOMERULAR FILTRATION RATE > 60.0 (>42); GLUCOSE, FASTING 83 MG/DL (70-100); MB/CK RELATIVE INDEX 1.03 (< OR =4); NT-PRO BNP 220 PG/ML (<450); POTASSIUM SERUM 4.1 MEQ/L (3.5-5.1); SODIUM LEVEL 141 MEQ/L (136-145); TOTAL PROTEIN 6.7 GM/DL (6.4-8.2); TROPONIN I < 0.02 NG/ML (< 0.10)
--- NOTE | 2020-06-06 02:13 | REPVR ---
PROCEDURE INFORMATION: Exam: XR Chest Exam date and time: 06/06/2020 1:54 AM Age: 80 years old Clinical indication: Cough and dyspnea; Additional info: Dyspnea/cough TECHNIQUE: Imaging protocol: XR of the chest Views: 2 views. COMPARISON: CT Chest without contrast 02/05/2020 8:09 AM FINDINGS: Lungs: Mild left base atelectasis and possible infiltrates since the prior study. The right lung is unchanged. Pleural spaces: Unremarkable. No pleural effusion. No pneumothorax. Heart/Mediastinum: The heart and mediastinum are unchanged. Bones/joints: Status post sternotomy. IMPRESSION: 1. Mild left base atelectasis and possible infiltrates since 02/05/2020. 2. Otherwise stable chest. Electronically signed by: Adelfo Culp On 06/06/2020 02:13:59 AM
[2020-06-06] MEDS ORDERED: DOXYCYCLINE HYCLATE 100MG TABLET PO ONE (03:20)
[2020-06-06] MEDS ORDERED: cefTRIAXone SOD 1 GM in D5W MINI-BAG PLUS 50 ML IV ONE (03:20)
[2020-06-06] MEDS ORDERED: CEFD1CAP8 PO (03:36)
[2020-06-06] MEDS ORDERED: DOXY100C37 PO (03:36)
[2020-06-06] MEDS ORDERED: IPRAINH INH (03:36)
[2020-06-06] MEDS ORDERED: GUAIDM5UD PO (03:36)
[2020-06-06] MEDS ORDERED: PRED20TA PO (03:41)
[2020-06-06 03:45] VITALS: BP 134/65
--- NOTE | 2020-06-07 17:45 | ECGEPIP ---
[facility] - ED Test Date: 2020-06-06 Pat Name: JUAN HELTON Department: Room: - Gender: Male Rn Telephonic: Dolores HERRON : 1940 Requested By: RAF BASS Order Number: [id number] Reading MD: Mary Christian Measurements Intervals [place] Rate: 51 P: 14 PA: 194 QRS: -51 QRSD: 96 T: 30 QT: 482 QTc: 444 Interpretive Statements Sinus bradycardia Left anterior fascicular block Possible Anterolateral infarct , age undetermined no prior Electronically Signed on 06-07-2020 17:45:20 EDT by Mary Christian
== END 2020-06-06 04:04 | disposition home or self-care (01) ==
LOC: M ED 00:25
DX: J44.1 Chronic obstructive pulmonary disease with (acute) exacerbation (principal); R00.1 Bradycardia, unspecified; J98.11 Atelectasis; I10 Essential (primary) hypertension; Z79.899 Other long term (current) drug therapy
CPT/HCPCS: 71046; 80048; 80076; 82550; 82553; 83605; 83880; 84484; 85025; 93005; 94760; 96365; 99285; J0696

== ENCOUNTER → 2020-07-14 | Outpatient (CLI) | payer BC, MEDICARE ==
[~2020-07-14] MED LIST changes: +CEFD1CAP8 PO; +DOXY100C37 PO; +GABA-283 PO; -GABA-845 PO; +GUAIDM5UD PO; +IPRAINH INH; +PRED20TA PO; +PRIM50TA6 PO
== END ==
LOC: M LABSMTC 10:37
PROVIDERS: ATTEND Radiology Vascular & Interventional Radiology
DX: Z01.818 Encounter for other preprocedural examination (principal); Z20.822 Contact with and (suspected) exposure to COVID-19

== ENCOUNTER → 2020-08-25 | Outpatient (REF) | payer BC, MEDICARE ==
[~2020-08-25] MED LIST changes: -DOXY100C37 PO; +DOXY1CAP62 PO
== END ==
LOC: M LAB REF 13:52
PROVIDERS: ATTEND Dermatology
DX: L57.0 Actinic keratosis (principal)

== ENCOUNTER → 2020-09-12 | Outpatient (CLI) | payer BC, MEDICARE ==
[~2020-09-12] MED LIST changes: +ISOVUE-370 76% 100ML VIAL As Ordered ONE
--- NOTE | 2020-09-13 07:41 | REP ---
INDICATION: AAA WITHOUT RUPTURE COMPARISON: 03/15/2020 TECHNIQUE: Axial noncontrast images from the lung bases to the pubic symphysis with coronal and sagittal reformations. This CT examination was performed using the following dose reduction techniques: Automated exposure control, adjustment of mA and/or kv according to the patient's size, and use of iterative reconstruction technique. FINDINGS: Patient is status post aorto bi iliac stent graft placement for infrarenal abdominal aortic aneurysm. The excluded portion of the aneurysm has increased in size to 7.8 cm maximal diameter previously measuring 7.0 cm maximal diameter and demonstrates endoleak. There also appears to be hazy infiltration of the periaortic retroperitoneal fat highly suspicious for slow/impending rupture. Liver, spleen, pancreas, gallbladder, and left adrenal glands are normal. Right adrenal gland includes stable 1.8 cm adenoma. Kidneys demonstrate age-related cortical atrophic changes as well as stable left renal cysts measuring up to 3.8 cm diameter. Small and large bowel is without obstruction or acute inflammatory process. Moderate fecal stasis noted through the colon. Sigmoid diverticulosis identified without acute diverticulitis. Pelvis demonstrates normal bladder and age-appropriate prostate/seminal vesicles. No ascites. No free air. No adenopathy. Musculoskeletal structures demonstrate degenerative changes without acute osseous abnormality. Lung bases are clear. IMPRESSION: 1. Infrarenal abdominal aortic aneurysm has considerably increased in diameter/volume and demonstrates endoleak as well as periaortic stranding highly suspicious for impending/slow rupture. 2. Chronic nonacute findings as described above. 1. <Electronically signed by Yuval Forbes > 09/13/20 [id number]
== END ==
LOC: M RAD 14:17
PROVIDERS: ATTEND Radiology Vascular & Interventional Radiology
DX: I71.4 Abdominal aortic aneurysm, without rupture (principal)
CPT/HCPCS: 74174; Q9967

== ENCOUNTER 2020-11-14 17:32 | Emergency (ER) | payer BC, MEDICARE ==
[~2020-11-14] VITALS: Ht 177.8 cm; Wt 98.0 kg
[~2020-11-14 17:32] MED LIST changes: -GASTROGRAFIN SOLUTION 30ML (Q9963) As Ordered ONE; -ISOVUE-370 76% 100ML VIAL As Ordered ONE
[2020-11-14 19:46] VITALS: BP 161/74
== END 2020-11-14 20:07 | disposition home or self-care (01) ==
LOC: M ED 17:32
DX: N32.0 Bladder-neck obstruction (principal); R33.9 Retention of urine, unspecified; N40.1 Benign prostatic hyperplasia with lower urinary tract symptoms; I50.9 Heart failure, unspecified; I71.4 Abdominal aortic aneurysm, without rupture; E78.00 Pure hypercholesterolemia, unspecified; K21.9 Gastro-esophageal reflux disease without esophagitis; Z86.73 Personal history of transient ischemic attack (TIA), and cerebral infarction without residual deficits; Z95.1 Presence of aortocoronary bypass graft; Z79.899 Other long term (current) drug therapy; Z79.01 Long term (current) use of anticoagulants

== ENCOUNTER → 2020-11-14 | Outpatient (REF) | payer BC, MEDICARE ==
[~2020-11-14] MED LIST changes: -ISOVUE-370 76% 100ML VIAL As Ordered ONE
== END ==
LOC: M SFHCPLAZ 17:15
PROVIDERS: ATTEND Physician Assistant
DX: R10.30 Lower abdominal pain, unspecified (principal)

== ENCOUNTER → 2020-11-14 | Outpatient (CLI) | payer BC, MEDICARE ==
[~2020-11-14] MED LIST changes: +GASTROGRAFIN SOLUTION 30ML (Q9963) As Ordered ONE; +ISOVUE-370 76% 100ML VIAL As Ordered ONE
[2020-11-14 15:57] LABS: BASO % 0.2 % (0.0-1.0); EOS # 0.1 10^3/uL (0.0-0.5); EOS % 0.5 % (0.0-3.0); HEMATOCRIT 33.7 % (42.0-52.0); HEMOGLOBIN 10.9 g/dl (13.5-17.5); LYMPH # 1.3 10^3/uL (1.5-5.0); LYMPH % 12.8 % (24.0-44.0); MEAN CORPUSCULAR HEMOGLOBIN 28.5 pg (27.0-33.0); MEAN CORPUSCULAR HGB CONC 32.3 g/dl (32.0-36.5); MEAN CORPUSCULAR VOLUME 88.2 fl (80.0-96.0); MONO % 10.2 % (2.0-8.0); NEUTROPHILS # 7.5 10^3/uL (1.5-8.5); NEUTROPHILS % 75.7 % (36.0-66.0); PLATELET COUNT, AUTOMATED 214 10^3/uL (150-450); RED BLOOD COUNT 3.82 10^6/uL (4.30-6.10); WHITE BLOOD COUNT 9.9 10^3/uL (4.0-10.0)
[2020-11-14 16:38] LABS: ALT/SGPT 35 U/L (12-78); BILIRUBIN,TOTAL 0.5 MG/DL (0.2-1.0); BLOOD UREA NITROGEN 38 MG/DL (7-18); CALCIUM LEVEL 9.4 MG/DL (8.8-10.2); CARBON DIOXIDE LEVEL 30 MEQ/L (21-32); CHLORIDE LEVEL 100 MEQ/L (98-107); CREATININE FOR GFR 1.12 MG/DL (0.70-1.30); GLOMERULAR FILTRATION RATE > 60.0 (>42); GLUCOSE, FASTING 91 MG/DL (70-100); LIPASE 77 U/L (73-393); POTASSIUM SERUM 3.8 MEQ/L (3.5-5.1); SODIUM LEVEL 136 MEQ/L (136-145); TOTAL PROTEIN 6.7 GM/DL (6.4-8.2)
--- NOTE | 2020-11-14 18:22 | REPVR ---
PROCEDURE INFORMATION: Exam: CT Abdomen And Pelvis With Contrast Exam date and time: 11/14/2020 4:52 PM Age: 80 years old Clinical indication: Abdominal pain; Additional info: Abd pain, constipation, hematuria TECHNIQUE: Imaging protocol: Computed tomography of the abdomen and pelvis with contrast. Radiation optimization: All CT scans at this facility use at least one of these dose optimization techniques: automated exposure control; mA and/or kV adjustment per patient size (includes targeted exams where dose is matched to clinical indication); or iterative reconstruction. Contrast material: ISOVUE 370; Contrast volume: 100 ml; Contrast route: INTRAVENOUS (IV); COMPARISON: CT ANGIO ABD/PEL 09/12/2020 2:53 PM FINDINGS: Lungs: No acute abnormality is seen in the lung bases. Heart: No significant abnormality. Liver: Normal. No mass. Gallbladder and bile ducts: Normal. No calcified stones. No ductal dilation. Pancreas: Normal. No ductal dilation. Spleen: Normal. No splenomegaly. Adrenal glands: Normal. No mass. Kidneys and ureters: The urinary bladder is distended up to the level of the umbilicus and there is moderately severe hydronephrosis present in both ureters, which was not present on the previous CT abdomen and pelvis study from 09/12/2020. Moderately severe bladder outlet obstruction is a likely cause for these findings. Multiple hypodense masses are present in the cortices of both kidneys. These masses have benign features with thin garcia and homogeneous low attenuation density of less than 20 Hounsfield units and are likely Bosniak type I cysts. These are unchanged since the previous CT study. Stomach and bowel: Unremarkable. No obstruction. No mucosal thickening. Appendix: No evidence of appendicitis. Intraperitoneal space: No free intraperitoneal air or free fluid. Vasculature: The patient is post aorticobiiliac stent graft placement for infrarenal abdominal aortic aneurysm. The small area of hazy infiltrate in the periaortic retroperitoneal fat seen on the previous CT study has resolved and the possible endoleak seen in the thrombosed large [place] aneurysm sac seen on the previous CT study has also resolved. The size of the [place] aneurysm sac is only very slightly enlarged measuring 8.1 x 7.4 cm transversely on image 64 of series 201, whereas previously this measured 7.8 x 7.0 cm. Lymph nodes: Unremarkable. No enlarged lymph nodes. Urinary bladder: See "Kidneys and ureters" finding. Reproductive: The prostate gland is enlarged. Bones/joints: Moderately severe dextroscoliosis of the lumbar spine is present, apex at L3/L4. Chronic degenerative discovertebral disease with endplate osteophytosis and diminished disc height is seen at levels L2 through S1. Soft tissues: Unremarkable. IMPRESSION: 1. The prostate gland is enlarged. 2. The urinary bladder is distended up to the level of the umbilicus and there is moderately severe hydronephrosis present in both ureters, which was not present on the previous CT abdomen and pelvis study from 09/12/2020. Moderately severe bladder outlet obstruction is a likely cause for these findings. 3. The patient is post aorticobiiliac stent graft placement for infrarenal abdominal aortic aneurysm. The small area of hazy infiltrate in the periaortic retroperitoneal fat seen on the previous CT study has resolved and the possible endoleak seen in the thrombosed large [place] aneurysm sac seen on the previous CT study has also resolved. The size of the [place] aneurysm sac is only very slightly enlarged measuring 8.1 x 7.4 cm transversely on image 64 of series 201, whereas previously this measured 7.8 x 7.0 cm. 4. No free intraperitoneal air or free fluid. 5. Multiple hypodense masses are present in the cortices of both kidneys. These masses have benign features with thin garcia and homogeneous low attenuation density of less than 20 Hounsfield units and are likely Bosniak type I cysts. These are unchanged since the previous CT study. No further follow-up is recommended. Reference: Estephanie BR, Management of the Incidental Renal Mass on CT: A White Paper of the ACR Incidental Findings Committee, J Am Trini Radiol 2018. Impression. 6. Moderately severe dextroscoliosis of the lumbar spine is present, apex at L3/L4. Chronic degenerative discovertebral disease with endplate osteophytosis and diminished disc height is seen at levels L2 through S1. Electronically signed by: Daniel Garcia On 11/14/2020 18:21:58 PM
== END ==
LOC: M RAD 14:09
PROVIDERS: ATTEND Physician Assistant
DX: R93.5 Abnormal findings on diagnostic imaging of other abdominal regions, including retroperitoneum (principal); R10.30 Lower abdominal pain, unspecified; R10.10 Upper abdominal pain, unspecified; R31.9 Hematuria, unspecified; K59.00 Constipation, unspecified
CPT/HCPCS: 36415; 74177; 80053; 83690; 85025; G0103; Q9963; Q9967

== ENCOUNTER 2020-12-03 17:19 | Emergency (ER) | payer BC, MEDICARE ==
[~2020-12-03] VITALS: Ht 180.3 cm; Wt 90.6 kg
[2020-12-03 17:20] VITALS: BP 138/62
== END 2020-12-03 20:31 | disposition home or self-care (01) ==
LOC: M ED 17:19
DX: R33.9 Retention of urine, unspecified (principal); T83.098A Other mechanical complication of other urinary catheter, initial encounter; Y92.89 Other specified places as the place of occurrence of the external cause; J45.909 Unspecified asthma, uncomplicated; E78.5 Hyperlipidemia, unspecified; K21.9 Gastro-esophageal reflux disease without esophagitis; Z79.899 Other long term (current) drug therapy; Z79.01 Long term (current) use of anticoagulants

== ENCOUNTER → 2020-12-08 | Outpatient (CLI) | payer BC, MEDICARE ==
[2020-12-08 11:46] LABS: HEMATOCRIT 29.6 % (42.0-52.0); HEMOGLOBIN 9.4 g/dl (13.5-17.5); MEAN CORPUSCULAR HEMOGLOBIN 28.2 pg (27.0-33.0); MEAN CORPUSCULAR HGB CONC 31.8 g/dl (32.0-36.5); MEAN CORPUSCULAR VOLUME 88.9 fl (80.0-96.0); PLATELET COUNT, AUTOMATED 199 10^3/uL (150-450); RED BLOOD COUNT 3.33 10^6/uL (4.30-6.10)
== END ==
LOC: M PLALAB 08:41
PROVIDERS: ATTEND Urology
DX: R31.0 Gross hematuria (principal)

== ENCOUNTER → 2020-12-14 | Outpatient (REF) | payer BC, MEDICARE ==
[2020-12-14 13:06] LABS: HEMATOCRIT 30.3 % (42.0-52.0); HEMOGLOBIN 9.6 g/dl (13.5-17.5); MEAN CORPUSCULAR HEMOGLOBIN 28.7 pg (27.0-33.0); MEAN CORPUSCULAR HGB CONC 31.7 g/dl (32.0-36.5); MEAN CORPUSCULAR VOLUME 90.7 fl (80.0-96.0); PLATELET COUNT, AUTOMATED 269 10^3/uL (150-450); RED BLOOD COUNT 3.34 10^6/uL (4.30-6.10); WHITE BLOOD COUNT 8.2 10^3/uL (4.0-10.0)
[2020-12-14 13:54] LABS: ALT/SGPT 16 U/L (12-78); BILIRUBIN,TOTAL 0.3 MG/DL (0.2-1.0); BLOOD UREA NITROGEN 14 MG/DL (7-18); CARBON DIOXIDE LEVEL 30 MEQ/L (21-32); CHLORIDE LEVEL 107 MEQ/L (98-107); CHOLESTEROL LEVEL 138 MG/DL (<200); CHOLESTEROL RISK RATIO 3.285 (<5); CREATININE FOR GFR 0.83 MG/DL (0.70-1.30); FOLATE 6.6 NG/ML; FREE T4 0.95 NG/DL (0.76-1.46); GLOMERULAR FILTRATION RATE > 60.0 (>42); GLUCOSE, FASTING 84 MG/DL (70-100); HDL CHOLESTEROL 42 MG/DL (>40); LDL CHOLESTEROL 53 MG/DL (<100); NON-HDL-C 96 MG/DL; POTASSIUM SERUM 4.8 MEQ/L (3.5-5.1); SODIUM LEVEL 139 MEQ/L (136-145); THYROID STIMULATING HORMONE 0.627 uIU/ML (0.358-3.740); TOTAL 25(OH) VITAMIN D 36.1 NG/ML (30.0-100.0); TOTAL PROTEIN 6.8 GM/DL (6.4-8.2); TRIGLYCERIDES LEVEL 217 MG/DL (<150); VITAMIN B12 LEVEL 444 PG/ML
== END ==
LOC: M SFHCADAM 10:48
PROVIDERS: ATTEND Physician Assistant
DX: I71.4 Abdominal aortic aneurysm, without rupture (principal); I25.10 Atherosclerotic heart disease of native coronary artery without angina pectoris; E55.9 Vitamin D deficiency, unspecified; E53.8 Deficiency of other specified B group vitamins

== ENCOUNTER → 2020-12-14 | Outpatient (REF) | payer BC, MEDICARE ==
[~2020-12-14] MED LIST changes: +DOXY-443 PO; -DOXY1CAP62 PO
[2020-12-14 13:10] LABS: HEMATOCRIT 30.2 % (42.0-52.0); HEMOGLOBIN 9.6 g/dl (13.5-17.5); MEAN CORPUSCULAR HEMOGLOBIN 28.8 pg (27.0-33.0); MEAN CORPUSCULAR HGB CONC 31.8 g/dl (32.0-36.5); MEAN CORPUSCULAR VOLUME 90.7 fl (80.0-96.0); PLATELET COUNT, AUTOMATED 274 10^3/uL (150-450); RED BLOOD COUNT 3.33 10^6/uL (4.30-6.10)
[2020-12-14 13:40] LABS: ALT/SGPT 18 U/L (12-78); BLOOD UREA NITROGEN 15 MG/DL (7-18); CALCIUM LEVEL 9.1 MG/DL (8.8-10.2); CARBON DIOXIDE LEVEL 29 MEQ/L (21-32); CHLORIDE LEVEL 107 MEQ/L (98-107); CHOLESTEROL LEVEL 135 MG/DL (<200); CHOLESTEROL RISK RATIO 3.139 (<5); GLOMERULAR FILTRATION RATE > 60.0 (>42); GLUCOSE, FASTING 89 MG/DL (70-100); HDL CHOLESTEROL 43 MG/DL (>40); LDL CHOLESTEROL 49 MG/DL (<100); NON-HDL-C 92 MG/DL; POTASSIUM SERUM 4.5 MEQ/L (3.5-5.1); SODIUM LEVEL 140 MEQ/L (136-145); TRIGLYCERIDES LEVEL 215 MG/DL (<150)
== END ==
LOC: M LABDRWAD 12:41
PROVIDERS: ATTEND Nurse Practitioner Adult Health
DX: I25.10 Atherosclerotic heart disease of native coronary artery without angina pectoris (principal); Z95.1 Presence of aortocoronary bypass graft; I21.19 ST elevation (STEMI) myocardial infarction involving other coronary artery of inferior wall; I10 Essential (primary) hypertension; E78.2 Mixed hyperlipidemia; I63.9 Cerebral infarction, unspecified; G47.30 Sleep apnea, unspecified

== ENCOUNTER → 2020-12-28 | Outpatient (REF) | payer MEDICARE, BC ==
[2020-12-28 13:23] LABS: BLOOD UREA NITROGEN 18 MG/DL (7-18); CREATININE FOR GFR 0.83 MG/DL (0.70-1.30); GLOMERULAR FILTRATION RATE > 60.0 (>42)
== END ==
LOC: M LABDRWAD 12:20
PROVIDERS: ATTEND Radiology Vascular & Interventional Radiology
DX: I71.4 Abdominal aortic aneurysm, without rupture (principal)

== ENCOUNTER → 2021-01-02 | Outpatient (CLI) | payer BC, MEDICARE ==
[~2021-01-02] MED LIST changes: +ISOVUE-370 76% 100ML VIAL As Ordered ONE
--- NOTE | 2021-01-02 14:23 | REP ---
INDICATION: AAA COMPARISON: 11/14/2020, 09/12/2020.. TECHNIQUE: CT angiogram of the abdomen and pelvis was performed with intravenous administration of 100 cc of Isovue 370, without oral contrast. 3D MIP reconstruction images performed. FINDINGS: CT abdomen: The bilingual spanish inbound sales image shows clips and sternal wires well as evidence of prior aorto bi-iliac stent graft. Lung bases show minor peripheral fibrotic change without pleural effusion or acute infiltrate there is cylindrical bronchiectatic change. Heart size unchanged. No pericardial thickening or effusion evident. No hiatal hernia. No hepatosplenomegaly, hepatic or splenic mass nor intrahepatic biliary dilatation. I see no adjacent ascites in the upper abdomen. Gallbladder without calcified stone or mass. Pancreas is without ductal dilatation or definite mass. Appears to be a duodenal diverticulum in the 3rd portion the duodenum with an air-fluid level. The adrenals are symmetric and grossly intact. Kidneys show some cortical cysts similar to previous study. The parapelvic cysts and extrarenal pelvis on each side again noted with the extra renal pelves smaller. [place] ureters on the previous study have decreased in size. Colon shows some scattered diverticula without diverticulitis in the abdomen proper. Small bowel loops in the upper abdomen were unremarkable. Lung window review of all slices in the abdomen and pelvis shows no perforation or free air. There is evidence of a aorto bi-iliac stent and multiple vascular and periaortic clips noted and unchanged I do not see any compelling evidence for endoleak at this time. [place] artifact could certainly obscure small leaks. There is no periaortic infiltration of the mesenteric and retroperitoneal fat to suggest a leak. Both limbs of the aorto bi-iliac stent are patent with IV contrast throughout. There are bilateral renal artery stents again seen. Maximum AP by transverse diameter of the [place] the aortic aneurysm is 7.5 x 7.7 cm today. The proximal aneurysmal dilatation of the common iliac arteries unchanged. External iliac arteries with atherosclerotic plaque but no aneurysm. Surgical clips in the right inguinal region are unchanged. There is no periaortic, retroperitoneal or mesenteric pathologic sized lymphadenopathy. CT pelvis: The bone windows show diffuse lumbar spondylosis greatest at L3-4 and L5-S1 least at L4-5 but unchanged there is facet arthropathy in the lower lumbar spine without spondylolisthesis. No spondylolysis. Dextro rotatory curvature of the lumbar spine. Bony sacrum, pelvis and hips show minor degenerative change without destructive lesion or fracture is less distention of the bladder slight asymmetric bladder wall thickening posterolaterally on the left with prostate indentation of the posterior bladder and calcifications in the prostate as before no pelvic or inguinal pathologic sized adenopathy no ventral or inguinal hernia. Diverticulosis of the distal left colon and sigmoid without diverticulitis or colitis. No inflammatory changes about the cecum noted. Atherosclerotic calcifications of the internal iliac vessels and branches noted. IMPRESSION: 1. Infrarenal abdominal aortic aneurysm with aorto bi-iliac stent as before with patent limbs of that stent. I cannot confirm any evidence of recurrence of endoleak and no periaortic infiltration of the fat or evidence for retroperitoneal hematoma. The [place] aneurysm is grossly similar to the previous study in size and ectasia of the proximal common iliac arteries also unchanged. 2. Less dilatation extrarenal pelves and ureters. The bladder is less distended indicating lesser degree of outlet obstruction on the current study. Parapelvic cysts and cortical cysts are seen in both kidneys as before. Cortical thickness and renal size unchanged. Prostate enlarged with bladder less well distended from less outlet obstruction. The bladder wall thickness somewhat asymmetric on the left at the bladder base which may all be due to the prostate. Urology follow-up may be helpful. 3. Some diverticulosis distal left colon and sigmoid without diverticulitis, unchanged. 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 4. No new or interval changes. <Electronically signed by Jon Blanco > 01/02/21 [id number]
== END ==
LOC: M RAD 10:03
PROVIDERS: ATTEND Radiology Vascular & Interventional Radiology
DX: I71.4 Abdominal aortic aneurysm, without rupture (principal)
CPT/HCPCS: 74174; Q9967

== ENCOUNTER → 2021-01-09 | Outpatient (REF) | payer BC, MEDICARE ==
[~2021-01-09] MED LIST changes: -ISOVUE-370 76% 100ML VIAL As Ordered ONE
[2021-01-09 12:31] LABS: BASO % 0.2 % (0.0-1.0); EOS % 0.4 % (0.0-3.0); HEMATOCRIT 32.1 % (42.0-52.0); HEMOGLOBIN 9.9 g/dl (13.5-17.5); LYMPH # 0.9 10^3/uL (1.5-5.0); LYMPH % 9.1 % (24.0-44.0); MEAN CORPUSCULAR HEMOGLOBIN 27.8 pg (27.0-33.0); MEAN CORPUSCULAR HGB CONC 30.8 g/dl (32.0-36.5); MEAN CORPUSCULAR VOLUME 90.2 fl (80.0-96.0); MONO # 0.6 10^3/uL (0.0-0.8); MONO % 5.9 % (2.0-8.0); NEUTROPHILS # 8.4 10^3/uL (1.5-8.5); NEUTROPHILS % 83.8 % (36.0-66.0); PLATELET COUNT, AUTOMATED 239 10^3/uL (150-450); RED BLOOD COUNT 3.56 10^6/uL (4.30-6.10)
[2021-01-09 12:59] LABS: ALBUMIN 3.3 GM/DL (3.2-5.2); ALT/SGPT 19 U/L (12-78); BILIRUBIN,TOTAL 0.3 MG/DL (0.2-1.0); BLOOD UREA NITROGEN 20 MG/DL (7-18); CALCIUM LEVEL 9.3 MG/DL (8.8-10.2); CARBON DIOXIDE LEVEL 30 MEQ/L (21-32); CHLORIDE LEVEL 109 MEQ/L (98-107); CREATININE FOR GFR 0.72 MG/DL (0.70-1.30); FERRITIN 33 NG/ML (26-388); FREE T4 1.03 NG/DL (0.76-1.46); GLOMERULAR FILTRATION RATE > 60.0 (>42); GLUCOSE, FASTING 86 MG/DL (70-100); IRON (FE) 24 UG/DL (65-175); NT-PRO BNP 388 PG/ML (<450); PERCENT SATURATION 6.3 % (19.7-50.0); POTASSIUM SERUM 4.7 MEQ/L (3.5-5.1); SODIUM LEVEL 142 MEQ/L (136-145); THYROID STIMULATING HORMONE 0.535 uIU/ML (0.358-3.740); TOTAL IRON BINDING CAPACITY 381 UG/DL (250-450); TOTAL PROTEIN 6.9 GM/DL (6.4-8.2)
[2021-01-09 13:01] LABS: VITAMIN B12 LEVEL 348 PG/ML
[2021-01-09 13:02] LABS: FOLATE 5.5 NG/ML
== END ==
LOC: M SFHCADAM 09:34
PROVIDERS: ATTEND Physician Assistant
DX: J40 Bronchitis, not specified as acute or chronic (principal); R06.00 Dyspnea, unspecified; J43.9 Emphysema, unspecified; D64.9 Anemia, unspecified

== ENCOUNTER → 2021-01-09 | Outpatient (CLI) | payer BC, MEDICARE ==
--- NOTE | 2021-01-09 11:51 | REP ---
INDICATION: BRONCHITIS. COMPARISON: Multiple the latest 06/06/2020 TECHNIQUE: PA and lateral FINDINGS: The scattered asymmetric somewhat patchy increased interstitial markings seen on the prior exam appears stable. No acute patchy parenchymal opacities or pleural effusions seem to have developed. The cardiomediastinal silhouette is stable. The heart is not enlarged. Note is again made of previous median sternotomy. There is no significant change in appearance of the osseous structures. IMPRESSION: Stable appearing chronic lung field changes. The examinations are technically different. <Electronically signed by Manoj Morris > 01/09/21 [id number]
== END ==
LOC: M ADAMS 10:43
PROVIDERS: ATTEND Physician Assistant
DX: J40 Bronchitis, not specified as acute or chronic (principal)

== ENCOUNTER 2021-02-07 07:59 | Inpatient (IN) | payer MEDICARE, BC ==
[~2021-02-07] VITALS: Ht 177.8 cm; Wt 88.5 kg
[~2021-02-07 07:59] MED LIST changes: -ALBU8.5H INH; -ASPI81TA26 PO; -ERGO500029 PO; -FLUTISP NARES; -INCR1INH INH; -LOSA50TA88 PO; -MONT10TA10 PO; -PANT-23 PO; -PLAV1TAB2 PO; -ROSU40TA4 PO; -TAMS1CAP17 PO; -TREL1AER INH; -VITA-172 PO
--- OUTSIDE RECORDS SUMMARY | 2021-02-07 08:06 | CCD | Continuity of Care Document ---
Author Author Nocturnal OximetryBogdan Organization Unknown Address [address] [place] [id number] Phone Unavailable Care Team Providers Care Carpenter Helper Name Role Phone ChemoYuly P.A.-C. AUTM [phone] Problems Active Problems Provider Date Essential hypertension Dante Muñoz DO Onset: 7 Allergic rhinitis Jesus Root MD Onset: 08/03/2014 Dyspnea Jesus Root MD Onset: 07/09/2013 Solitary nodule of lung Jesus Root MD Onset: 3 Ex-smoker Sirena Armstrong, A.N.P. Onset: 05/21/2012 Overweight Sirena Armstrong A.N.P. Onset: 06/04/2011 Body mass index 25-29 - overweight Sirena Armstrong A.N.P. Onset : 06/04/2011 Obstructive sleep apnea syndrome Sirena Armstrong, A.N.P. Onset: 06/15/2010 Social History Type Date Description Comments Sex Unknown Tobacco Use Reviewed: 01/30/21 Current Cigar Smoker 1 Daily Smoking Status Reviewed: 01/30/21 Current Cigar Smoker 1 Daily ETOH Use Denies alcohol use Tobacco Use Start: Unknown Quit 2006 Recreational Drug Use Denies Drug Use Allergies and adverse reactions Description No Known Drug Allergies Medications Active Medications SIG Qnty Indications Ordering Provide r Date Ipratropium [place] 0.06% Solution 2 squirts each nostril @ hs 30ml Jesus Root MD CPAP +15CM Savannah Root MD 01/2019 Allopurinol 100mg Tablets south ry day Unknown Gabapentin 600mg Tablets four times a day Unknown Nitrostat 0.4mg Tablets Sub 1 tab subling, every 5 min up to 3x for chest pain Unknown Pantoprazole Sodium 40mg Tablets D R 1 by mouth every day Unknown Crestor 40mg Tablets 1 by mouth every day Unknown Vitamin D (Ergocalciferol) [id number] Capsules Q 2 WKS Unknown Furosemide 20mg Tablets 1 po qd\\prn Unknown Singulair 10mg Tablets 1 tab po qd Unknown Clopidogrel Bisulfate 75mg Tablets 1 by mouth every day Unknown Primidone 50mg Tablets 1 tab by mouth every day Unknown Trelegy Ellipta 100- 62.5-25mcg/Inh Aerosol 1 puff every day Yuly Mclain P.AMelba -Claudia. Albuterol Sulfate HFA 108(90Base) mcg/Act Aerosol Inhale One puff By Mouth Every 4 Hours as Needed For S hortness Of Breath Unknown Losartan Potassium 50mg Tablets Take One Tablet By Mouth Every Day Unknown Immunizations CPT Code Status Date Vaccine Lot # 22661 Given 12/29/2015 Influenza Virus Split 3 Yrs And Above For Intramuscular Use Q2036 Given 01/04/2012 Influenza Vaccine 3 Years Of Age Or Older (Flulaval) 09779 Given 01/17/2010 Influenza Virus Split 3 Yrs And Above For Intramuscular Use Vital Signs Date Vital Result Comment 01/30/2021 8:44am BP Systolic 102 mmHg BP Diastolic 62 mmHg Heart Rate 53 /min O2 % BldC Oximetry 97 % Height 72 inches 6'0" Weight 204.00 lb BMI (Body Mass Index) 27.7 kg/m2 [place] Body Weight 178 lb Weight 92.534 kg BSA (Body Surface Area) 2.15 m2 05/07/2019 12:54pm BP Systolic 126 mmHg BP Diastolic 80 mmHg Heart Rate 80 /min O2 % BldC Oximetry 97 % Room Air Height 72 inches 6'0" Weight 237.00 lb BMI (Body Mass Index) 32.1 kg/m2 [place] Body Weight 178 lb Weight 107.503 kg BSA (Body Surface Area) 2.29 m2 Results Test Acquired Date Facility Test Result H/L Range Note FVL/Ousmane 01/30/2021 [facility] SEE IMAGE FVC-Pred 4.37 L FVC-Pre 3.81 L FVC-%Pred-Pre 87 L FVC-LLN 3.38 L Fev1-Pred 3.13 L Fev1-Pre 3.12 L Fev1-%Pred-Pre 99 L Fev1-LLN 2.29 L Fev6-Pred 4.09 L Fev6-Pre 3.80 L Fev6-%Pred-Pre 92 L Fev6-LLN 3.13 L Xso6vsv-Pxup 72 % Afw0uzb-Qvd 82 % Utt5xyh-%Pred-Pre 114 % Yrg7pon-GBZ 62 % Kzy8php-Jvwk 94 % Uuj0vro-Ria 100 % Zlt8rps-%Pred-Pre 106 % FEFMax-Pred 7.69 L/E/sec FEFMax-Pre 9.19 L/E/sec FEFMax-%Pred-Pre 119 L/E/sec FEFMax-LLN 5.23 L/E/sec Mpf6288-Ygpn 2.16 L/E/sec Miv4100-Slw 3.02 L/E/sec Gyb5423-%Pred-Pre 139 L/E/sec Qne6482-JXB 0.47 L/E/sec ExpTime-Pre 7.49 sec Ioo9tyo7-Ijbx 76 % Mpe9fnr0-Ely 82 % Ijr8mso1-%Pred-Pre 107 % Dgh9vzb8-XXI 67 % Procedures Date Code Description Status 01/31/2021 21657 Diffusing Capacity Completed 01/31/2021 32186 Plethysmography Determination Grace ng Volumes & Per Airway Resist Completed 01/31/2021 99526 Bronchospasm Evaluation Complete d 01/30/2021 42847 Office/Outpatient Established Mo d MDM 30-39 Min Completed 01/30/2021 59867 Spirometry Completed Medical Devices Description No Information Available Encounters Description No Information Available Assessments Date Code Description Provider 01/31/2021 R05.9 Cough, unspecified Pulmonary Lab 01/30/2021 R05.9 Cough, unspecified Jesus adams MD 01/30/2021 R06.02 Shortness of breath Jesus valerio MD 01/30/2021 R91.8 Other nonspecific abnormal findi ng of lung field Jesus Root MD 01/30/2021 G47.33 Obstructive sleep apnea (adult) (pediatric) Jesus Root MD Plan of Treatment Future Appointment(s):* 02/15/2021 10:00 am - Jesus Root MD at [facility] Pulmonary/Thoracic 01/30/2021 - Jesus Root MD* R05.9 Cough, unspecified * R06.02 Shortness of breath * R91.8 Other nonspecific abnormal finding of lung field * G47.33 Obstructive sleep apnea (adult) (pediatric) * * Comments:* ~ At this point, he is not known to have chronic obstructive lung disease or chronic bronchitis. His spirometry values, including today's, are completely normal. His CT may show some early bronchiectatic changes. He has some mild subpleural fibrotic changes. His most recent chest x-ray shows increased interstitial markings, which certainly could be a fibrotic change or could be his heart dysfunction.~ In view of the above and the fact that he is completely noncompliant with his CPAP, we will get a nocturnal oximetry, as well as CT scan of the chest to further evaluate his anatomy and his fibrotic changes, as well as full underlying pulmonary function testing. If his PFT's are completely normal, then, I would hold his Trelegy and do a methacholine challenge.~ We reviewed this at length with him. He is in agreement. I will see him in return when the above is available. * Follow up:* See testing Functional Status Description No Information Available Mental Status Description No Information Available Referrals Refer to Reason for Referral Status Appt Date Jesus Root M.D. PULM EMPHYSEMA, ESTEVEZ Closed 01/04 [facility] [address] [place], [place] [address] [phone]
--- OUTSIDE RECORDS SUMMARY | 2021-02-07 08:06 | CCD | Continuity of Care Document ---
Author Author Bogdan ROOT MD Organization Unknown Address [address] [place] [address] Phone [phone] Care Team Providers Care Keysmith Name Role Phone BohayleehoangjustinYuly P.A.-C. AUTM Problems Active Problems Provider Date Essential hypertension Dante Muñoz DO Onset: 7 Allergic rhinitis Jesus Root MD Onset: 08/03/2014 Dyspnea Jesus Root MD Onset: 07/09/2013 Solitary nodule of lung Jesus Root MD Onset: 3 Ex-smoker Sirena Armstrong, A.N.P. Onset: 05/21/2012 Overweight Sirena Armstrong A.N.PMelba Onset: 06/04/2011 Body mass index 25-29 - overweight Sirena Armstrong A.N.PMelba Onset : 06/04/2011 Obstructive sleep apnea syndrome Sirena Armstrong A.N.PMelba Onset: 06/15/2010 Social History Type Date Description [...] Qnty Indications Ordering Provide r Date Ipratropium [place] 0.06% Solution 2 squirts each nostril @ [...] mouth every day Unknown Vitamin D (Ergocalciferol) [id number] Capsules Q 2 WKS Unknown Furosemide 20mg Tablets 1 po qd\\prn Unknown Singulair 10mg Tablets 1 tab po qd Unknown Clopidogrel Bisulfate 75mg Tablets 1 by mouth every day Unknown Primidone 50mg Tablets 1 tab by mouth every day Unknown Trelegy Ellipta 100- 62.5-25mcg/Inh Aerosol 1 puff every day Yuly Mclain, P.AMelba -Claudia. Albuterol Sulfate HFA 108(90Base) mcg/Act Aerosol Inhale One puff By Mouth Every 4 Hours as Needed For S hortness Of Breath Unknown Losartan Potassium 50mg Tablets Take One Tablet By Mouth Every Day Unknown Immunizations CPT Code Status Date Vaccine Lot # [id number] Given 12/29/2015 Influenza Virus Split 3 Yrs And Above For Intramuscular Use Q2036 Given 01/04/2012 Influenza Vaccine 3 Years Of Age Or Older (Flulaval) 84280 Given 01/17/2010 Influenza Virus Split 3 Yrs And Above For Intramuscular Use Vital Signs Date Vital Result Comment 01/30/2021 8:44am BP Systolic 102 mmHg BP Diastolic 62 mmHg Heart Rate 53 /min O2 % BldC Oximetry 97 % Height 72 inches 6'0" Weight 204.00 lb BMI (Body Mass Index) 27.7 kg/m2 [place] Body Weight 178 lb Weight 92.534 kg BSA (Body Surface Area) 2.15 m2 05/07/2019 12:54pm BP Systolic 126 mmHg BP Diastolic 80 mmHg Heart Rate 80 /min O2 % BldC Oximetry 97 % Room Air Height 72 inches 6'0" Weight 237.00 lb BMI (Body Mass Index) 32.1 kg/m2 [place] Body Weight 178 lb Weight 107.503 kg [...] L Fev6-%Pred-Pre 92 L Fev6-LLN 3.13 L Asn9npn-Jilg 72 % Wci6ysn-Tes 82 % Kml1dcj-%Pred-Pre 114 % Zne7ggi-NRS 62 % Epn8kkc-Rsob 94 % Ngf9jyc-Tze 100 % Vpi4ivi-%Pred-Pre 106 % FEFMax-Pred 7.69 L/E/sec FEFMax-Pre 9.19 L/E/sec FEFMax-%Pred-Pre 119 L/E/sec FEFMax-LLN 5.23 L/E/sec Dyi9375-Vxvt 2.16 L/E/sec Njb0404-Ass 3.02 L/E/sec Izd6934-%Pred-Pre 139 L/E/sec Ivu5699-OEE 0.47 L/E/sec ExpTime-Pre 7.49 sec Yzv0mcv4-Jcbd 76 % Ums7kzl2-Hti 82 % Tgg1syj3-%Pred-Pre 107 % Jjz1hja7-WOJ 67 % Procedures Date Code Description Status 01/31/2021 42399 Diffusing Capacity Completed 01/31/2021 11769 Plethysmography Determination Grace ng Volumes & Per Airway Resist Completed 01/31/2021 49929 Bronchospasm Evaluation Complete d 01/30/2021 97913 Office/Outpatient Established Mo d MDM 30-39 Min Completed 01/30/2021 49243 Spirometry Completed Medical Devices Description No Information Available Encounters Type Date Location Provider Dx Diagnosis Office Visit 01/30/2021 9:00a [facility] Pulmonary/Thoracic Gregory Root MD R05.9 Cough, unspecified R06.02 Shortness of breath R91.8 Other nonspecific abnormal f inding of lung field G47.33 Obstructive sleep apnea (zana lt) (pediatric) Assessments Date Code Description Provider 01/31/2021 R05.9 Cough, unspecified Pulmonary Lab 01/30/2021 R05.9 Cough, unspecified Jesus adams MD 01/30/2021 R06.02 Shortness of breath Jesus valerio MD 01/30/2021 R91.8 Other nonspecific abnormal findi ng of lung field Jesus Root MD 01/30/2021 G47.33 Obstructive sleep apnea (adult) (pediatric) Jesus Root MD Plan of Treatment Future Appointment(s):* 02/15/2021 10:00 am - Jesus Root MD at [facility] Pulmonary/Thoracic 01/30/2021 - Jesus Root MD* [...] Root M.D. PULM EMPHYSEMA, ESTEVEZ Closed 01/04 [facility] [address] [place], [place] [address] [phone]
--- OUTSIDE RECORDS SUMMARY | 2021-02-07 08:06 | CCD | Continuity of Care Document ---
Author Author Nocturnal OximetryBogdan Organization Unknown Address [address] [place] [id number] Phone Unavailable Care Team Providers Care Nurse Instructor Name Role Phone ChemoYuly P.A.-C. AUTM [phone] Problems Active Problems Provider Date Essential [...] Qnty Indications Ordering Provide r Date Ipratropium [place] 0.06% Solution 2 squirts each nostril @ [...] mouth every day Unknown Vitamin D (Ergocalciferol) [id number] Capsules Q 2 WKS Unknown Furosemide 20mg [...] CPT Code Status Date Vaccine Lot # [id number] Given 12/29/2015 Influenza Virus Split 3 Yrs And Above For Intramuscular Use Q2036 Given 01/04/2012 Influenza Vaccine 3 Years Of Age Or Older (Flulaval) 62179 Given 01/17/2010 Influenza Virus Split 3 Yrs And Above For Intramuscular Use Vital Signs Date Vital Result Comment 01/30/2021 8:44am BP Systolic 102 mmHg BP Diastolic 62 mmHg Heart Rate 53 /min O2 % BldC Oximetry 97 % Height 72 inches 6'0" Weight 204.00 lb BMI (Body Mass Index) 27.7 kg/m2 [place] Body Weight 178 lb Weight 92.534 kg BSA (Body Surface Area) 2.15 m2 05/07/2019 12:54pm BP Systolic 126 mmHg BP Diastolic 80 mmHg Heart Rate 80 /min O2 % BldC Oximetry 97 % Room Air Height 72 inches 6'0" Weight 237.00 lb BMI (Body Mass Index) 32.1 kg/m2 [place] Body Weight 178 lb Weight 107.503 kg [...] L Fev6-%Pred-Pre 92 L Fev6-LLN 3.13 L Hqo7arf-Jhul 72 % Gre2akv-Ivj 82 % Wey5wys-%Pred-Pre 114 % Acl8zrn-ZDE 62 % Xkx3lih-Pacw 94 % Jse5fwe-Vkd 100 % Pxc8tcv-%Pred-Pre 106 % FEFMax-Pred 7.69 L/E/sec FEFMax-Pre 9.19 L/E/sec FEFMax-%Pred-Pre 119 L/E/sec FEFMax-LLN 5.23 L/E/sec Ktt9846-Nqdx 2.16 L/E/sec Ppu3476-Mbk 3.02 L/E/sec Uvv1393-%Pred-Pre 139 L/E/sec Ypy2265-XHY 0.47 L/E/sec ExpTime-Pre 7.49 sec Sas3tqb5-Tefu 76 % Hab4wih9-Owt 82 % Fkl4eec9-%Pred-Pre 107 % Khj2rog0-NJZ 67 % Procedures Date Code Description Status 01/31/2021 83032 Diffusing Capacity Completed 01/31/2021 06823 Plethysmography Determination Grace ng Volumes & Per Airway Resist Completed 01/31/2021 40003 Bronchospasm Evaluation Complete d 01/30/2021 53018 Office/Outpatient Established Mo d MDM 30-39 Min Completed 01/30/2021 25160 Spirometry Completed Medical Devices Description No Information [...] 10:00 am - Jesus Root MD at [facility] Pulmonary/Thoracic 01/30/2021 - Jesus Root MD* [...] Root M.D. PULM EMPHYSEMA, ESTEVEZ Closed 01/04 [facility] [address] [place], [place] [address] [phone]
--- OUTSIDE RECORDS SUMMARY | 2021-02-07 08:06 | CCD | Continuity of Care Document ---
Author Author Nocturnal OximetryBogdan Organization Unknown Address [address] [place] [phone] Phone Unavailable Care Team Providers Care Jewel Setter Name Role Phone ChemoYuly P.A.-C. AUTM Problems Active Problems Provider Date [...] Qnty Indications Ordering Provide r Date Ipratropium [place] 0.06% Solution 2 squirts each nostril @ [...] mouth every day Unknown Vitamin D (Ergocalciferol) [id number] Capsules Q 2 WKS Unknown Furosemide 20mg [...] CPT Code Status Date Vaccine Lot # [id number] Given 12/29/2015 Influenza Virus Split 3 Yrs And Above For Intramuscular Use Q2036 Given 01/04/2012 Influenza Vaccine 3 Years Of Age Or Older (Flulaval) 16816 Given 01/17/2010 Influenza Virus Split 3 Yrs And Above For Intramuscular Use Vital Signs Date Vital Result Comment 01/30/2021 8:44am BP Systolic 102 mmHg BP Diastolic 62 mmHg Heart Rate 53 /min O2 % BldC Oximetry 97 % Height 72 inches 6'0" Weight 204.00 lb BMI (Body Mass Index) 27.7 kg/m2 [place] Body Weight 178 lb Weight 92.534 kg BSA (Body Surface Area) 2.15 m2 05/07/2019 12:54pm BP Systolic 126 mmHg BP Diastolic 80 mmHg Heart Rate 80 /min O2 % BldC Oximetry 97 % Room Air Height 72 inches 6'0" Weight 237.00 lb BMI (Body Mass Index) 32.1 kg/m2 [place] Body Weight 178 lb Weight 107.503 kg [...] L Fev6-%Pred-Pre 92 L Fev6-LLN 3.13 L Ohk9lza-Elbe 72 % Hju4oga-Fqf 82 % Ymm0icp-%Pred-Pre 114 % Pql2nuu-SVP 62 % Fpf1seq-Vcqt 94 % Exr4dkf-Lix 100 % Xil6unc-%Pred-Pre 106 % FEFMax-Pred 7.69 L/E/sec FEFMax-Pre 9.19 L/E/sec FEFMax-%Pred-Pre 119 L/E/sec FEFMax-LLN 5.23 L/E/sec Gqm5885-Rewr 2.16 L/E/sec Xhi2167-Lqq 3.02 L/E/sec Tyv9603-%Pred-Pre 139 L/E/sec Nem9097-WFV 0.47 L/E/sec ExpTime-Pre 7.49 sec Omq4lov8-Axsi 76 % Ztk6igg9-Pub 82 % Bgh3dkm2-%Pred-Pre 107 % Oud5uzd3-HET 67 % Procedures Date Code Description Status 01/31/2021 60204 Diffusing Capacity Completed 01/31/2021 91096 Plethysmography Determination Grace ng Volumes & Per Airway Resist Completed 01/31/2021 72854 Bronchospasm Evaluation Complete d 01/30/2021 56987 Office/Outpatient Established Mo d MDM 30-39 Min Completed 01/30/2021 44403 Spirometry Completed Medical Devices Description No Information [...] 10:00 am - Jesus Root MD at [facility] Pulmonary/Thoracic 01/30/2021 - Jesus Root MD* R05.9 [...] Root M.D. PULM EMPHYSEMA, ESTEVEZ Closed 01/04 [facility] [address] [place], [place] [address] [phone]
--- OUTSIDE RECORDS SUMMARY | 2021-02-07 08:07 | CCD ---
Author Author [facility] Organization [facility] Address Unknown Phone Unavailable Care Team Providers Care Diesel Automotive Technician Name Role Phone Bal Persaud Unavailable PROBLEMS Type Condition ICD9-CM Code [id number] Code Onset Dates Condition S tatus W/U Status Risk SNOMED Code Notes Problem Vitamin d deficiency 268.9 Active confirmed 73683990 Problem Gout 274.9 Active confirmed 18689909 Problem Increasing prostate specific antigen level R97.20 Active confirmed 131543122 Problem Mixed hyperlipidemia 272.2 Active confirmed 110841054 Problem Memory changes R41.3 Active confirmed 73469 7006 Problem Vitamin D deficiency E55.9 Active confirmed 47972035 Problem Gastroesophageal reflux disease without esophagitis K21.9 Active confirmed 286053905 Problem Coronary artery disease invo lving [place] coronary artery of [place] heart without angina pectoris I25.10 Active confirmed 674329 914179001 Problem Essential tremor G25.0 Active confirmed 609 364764 Problem Abdominal aortic aneurysm (AAA) without rupture I7 1.4 Active confirmed 67192143 Problem Anemia, chronic disease D63.8 Active confirmed 610986409 Problem Constipation, unspecified constipation type K59.00 Active confirmed 81327982 Problem B12 deficiency E53.8 Active confirmed 40787 4004 Problem Urinary retention R33.9 Active confirmed 26 9569274 Problem Erectile dysfunction, unspecified erectile dysfunction typ e N52.9 Active confirmed 654425467 Problem Essential hypertension 401.9 Active confirmed 77691149 Problem Smoker F17.200 Active confirmed 09034321 Problem Enlarged thyroid E04.9 Active confirmed 371 6002 Problem Pure hypercholesterolemia E78.00 Active confirmed 347345010 Problem Pulmonary emphysema, unspecified emphysema type J4 3.9 Active confirmed 24715524 ALLERGIES Allergen (clinical drug ingredient) Drug/Non Drug Allergy do cumented on EMR Reaction Allergy Type Onset Date Status Mold, Dust sneezing Non Drug Allergy Active ENCOUNTERS from 1941 to 2020-11-24 Encounter Location Date Provider Diagnosis [facility] [address] [phone] [place] [address] Nov, Bal Persaud IMMUNIZATIONS Vaccine Route Administration Date Status Influenza 18 yrs & older Flublok IM Intramuscular Jan 16, 2019 Administered Influenza 18 yrs & older Flublok IM Intramuscular Jan 15, 2018 Administered Vitamin B-12 1000mcg/1mL Cyanocobalamin IM Intramuscular Apr 17, 2018 Administered Vitamin B-12 1000mcg/1mL Cyanocobalamin IM Intramuscular Apr 10, 2018 Administered Vitamin B-12 1000mcg/1mL Cyanocobalamin IM Intramuscular Apr 02, 2018 Administered Vitamin B-12 1000mcg/1mL Cyanocobalamin IM Intramuscular Mar 27, 2018 Administered COVID-19 dose #1 given elsewhere Unspecified Unknown Mar 08, 2020 Administered Zoster 0.65mL Zostavax Unknown Mar 22, 2014 Administe red COVID-19 dose #1 given elsewhere Unspecified Unknown Mar 29, 2020 Administered Pneumococcal Adult 0.5mL Pneumovax 23 Unknown Mar 22 15 Administered Pneumococcal 0.5mL Prevnar 13 Unknown Mar 24, 2015 Ad ministered SOCIAL HISTORY Tobacco Use: Social History Observation Description Date Details (start date - stop date) Former Smoker Sex Assigned At : Social History Observation Description Sex Assigned At Unknown Education: Question Answer Notes Level of Education: College Audit Question Answer Notes Total Score: 2 Interpretation: Alcohol Education Pentecostalism: Question Answer Notes Pentecostalism 13 Presybeterian No alevism beliefs that would impact health care. Sexual Hx: Question Answer Notes Had sex in the last 12 months (vaginal, oral, or anal)? Yes Have you ever had an STD? No with Women only Use protection? No Drug and Alcohol Question Answer Notes Total Score: 0 Interpretation: No problems reported Alcohol Screening: Question Answer Notes Did you have a drink containing alcohol in the past year? Ye s Points 4 Interpretation Positive How often did you have six or more drinks on one occas ion in the past year? Less than monthly (1 point) How many drinks did you have on a typica l day when you were drinking in the past year? 1 or 2 (0 points) How often did you have a drink containing alcohol in t he past year? Two to three times per week (3 points) BMI Care Goal Follow-Up Question Answer Notes Above Normal BMI Follow-Up Dietary management educatio n, guidance, and counseling Tobacco Use: Question Answer Notes Are you a: former smoker SMOKED 1.5 PACKS PER DAY STARTED 19 YRS OLD 41YRS OLD. STILL SMOKES OCCASIONAL CIGAR. REASON FOR REFERRAL No Information VITAL SIGNS No information MEDICATIONS Medication SIG (Take, Route, Frequency, Duration) Notes Start Da te End Date Status Losartan Potassium 50 MG 1 tablet Orally Once a day for 30 day(s ) Sep, Active Rosuvastatin Calcium 40 MG 1 tablet Orally Once a day for 90 day(s) Active Ranitidine HCl 150 MG 1 tablet at bedtime Orally Once a day for 30 day(s) Oct, Active Incruse Ellipta 62.5 MCG/INH 1 puff Inhalation Once a day for 30 days Sep, Active Astelin 137 MCG/SPRAY 1 puff in each nostril Nasally Twice a day Active Ventolin HFA 108 (90 Base) MCG/ACT 1 puff as needed In halation every 4 hrs as needed for SOB for 30 days Sep, Activ e Flomax 0.4 MG 1 capsule Orally Once a day for 90 days 16 S 2020 Active Drisdol 15896 UNIT 1 capsule Orally Monthy for 90 days Active Fluticasone Propionate (Inhal) 50 MCG/BLIST 1 puff Inhalation Twice a day Active Cialis 2.5 MG 1 tablet Orally QOD for 90 days Active Tadalafil 2.5 mg TAKE 1 TABLET EVERY OTHER DAY Active Fluorouracil 5 % 1 application Externally bid for 2 weeks for 30 Days Nov, Active Crestor 40 MG 1 tablet Orally Once a day for 30 day(s) Active Aspirin 81 MG 1 tablet Orally Once a day Active Furosemide 20 MG 1 tablet Orally PRN Active Primidone 50 MG 1 tablet orally Daily for 90 days Active Vitamin D 12.5 MCG/0.25ML 0.25 ml Orally Once a day for 30 day(s) Active Pantoprazole Sodium 40 mg 1 tab Orally Once a day Active Plavix 75 MG 1 tablet Orally Once a day Active Nitroglycerin 0.4 MG 1 tab Sublingual every 5 min utes x 3 as needed for chest pain for 8 Active Gabapentin 600 mg 2 tablet Orally Twice a day Active Montelukast Sodium 10 MG 1 tablet Orally Once a day for 30 day(s) Active Vitamin B12 1000 MCG 1 tablet Orally Once a day Apr, Active Allopurinol 100 mg 1 tablet Orally Once a day Active Clopidogrel Bisulfate 75 MG 1 tablet Orally Once a day for 30 day(s) Active PROCEDURES No Information RESULTS No Results REASON FOR VISIT occasional blood in urine MEDICAL (GENERAL) HISTORY Type Description Date Medical History CAD s/p [place] - Dr. Irene Carmona Medical History TIA Medical History AORTIC AND MITRAL VALVE DISEASE Medical History HTN Medical History HYPERLIPIDEMIA Medical History GOUT Medical History ALLERGIC RHINITIS Medical History GERD Medical History COLON POLYPS Medical History Chronic Low Back Pain secondary to DDD w ith Neuropathy Medical History URIC ACID KIDNEY STONES Medical History PLANTAR FASCIITIS Medical History VIT D DEFICIENCY Medical History OBESITY Medical History LOW TESTOSTERONE Medical History MILD ROSACEA Medical History SLEEP APNEA WITH CPAP Medical History ELEVATED PSA after Traumatic Agu[place]o removal - normalized - followed by Urology Medical History MMSE 10/2017 - Medical History 03/2018 - B12 deficiency - Negative Anti- parietal cell antibody Medical History Essential Tremor Medical History AAA s/p repair 04/2018 - devl oped subsequent endo-leak of [place] requiring liagation of the inf mes artery Medical History 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 - [facility] Surgical History APPENDECTOMY Surgical History CORONARY ARTERY STENTING 07/2005 Surgical History CORONARY ARTERY BYPASS GRAFT 09/2010 Surgical History ASCENDING AORTIC ANEURISM RE PAIR - Developed endoleak [place] requiring ligation 04/17/2017,09/2018 Surgical History Colonoscopy - Diverticulosis 2011 Surgical History Cataracts surgery May 2020 Hospitalization History KIDNEY STONES X2 Hospitalization History HEMATOMA 12/2016 Goals Section No Information Health Concerns No Information MEDICAL EQUIPMENT No Information MENTAL STATUS No Information FUNCTIONAL STATUS No Information ASSESSMENTS No Information PLAN OF TREATMENT Medication Medication Name Sig Start Date Stop Date Flomax 0.4 MG 1 capsule Orally Once a day for 90 days Nov, Next Appt Details Provider Name:Bal Persaud, 7 08:00:00 AM, [address], , [place], [address], Provider Name:Yuly Mclain, 2020-12 03:15:00 PM, [address], , [place], [address], Insurance Providers Payer Name Payer Address Payer Phone Insured Name Patient Relati onship to Insured Coverage Start Date Coverage End Date MEDICARE Part A and B [address] [facility] [address] [phone] JUAN HELTON self BCBS [place] [facility] PPO [phone] [place] [id number] JUAN HELTON self
--- OUTSIDE RECORDS SUMMARY | 2021-02-07 08:07 | CCD ---
Author Author [facility] Organization [facility] Address Unknown Phone Unavailable Care Team Providers Care Hospital Medical Biller Name Role Phone Dianna Edmonds Unavailable PROBLEMS Type Condition ICD9-CM Code [id number] Code Onset Dates Condition S tatus W/U Status Risk SNOMED Code Notes Problem Vitamin d deficiency 268.9 Active confirmed 98391020 Problem Gout 274.9 Active confirmed 93279040 Problem Increasing prostate specific antigen level R97.20 Active confirmed 247873962 Problem Mixed hyperlipidemia 272.2 Active confirmed 143100167 Problem Memory changes R41.3 Active confirmed 98369 7006 Problem Vitamin D deficiency E55.9 Active confirmed 35619299 Problem Gastroesophageal reflux disease without esophagitis K21.9 Active confirmed 473641126 Problem Coronary artery disease invo lving [place] coronary artery of [place] heart without angina pectoris I25.10 Active confirmed 570335 229545224 Problem Essential tremor G25.0 Active confirmed 609 488647 Problem Abdominal aortic aneurysm (AAA) without rupture I7 1.4 Active confirmed 16683405 Problem Anemia, chronic disease D63.8 Active confirmed 163406705 Problem Constipation, unspecified constipation type K59.00 Active confirmed 04956558 Problem B12 deficiency E53.8 Active confirmed 93770 4004 Problem Urinary retention R33.9 Active confirmed 26 2942319 Problem Erectile dysfunction, unspecified erectile dysfunction typ e N52.9 Active confirmed 918929540 Problem Essential hypertension 401.9 Active confirmed 30014882 Problem Smoker F17.200 Active confirmed 80388525 Problem Enlarged thyroid E04.9 Active confirmed 371 6002 Problem Pure hypercholesterolemia E78.00 Active confirmed 021265812 Problem Pulmonary emphysema, unspecified emphysema type J4 3.9 Active confirmed 44913281 ALLERGIES Allergen (clinical drug ingredient) Drug/Non Drug Allergy do cumented on EMR Reaction Allergy Type Onset Date Status Mold, Dust sneezing Non Drug Allergy Active ENCOUNTERS from 1940 to 2020-12-06 Encounter Location Date Provider Diagnosis [facility] [address] [facility] [phone] [place] [address] 14 Nov, 2020 Dianna Edmonds IMMUNIZATIONS Vaccine Route Administration Date Status Influenza [...] Notes Total Score: 2 Interpretation: Alcohol Education Adventism: Question Answer Notes Adventism 13 Jehovah'S Witness No islam beliefs that would impact health care. Sexual [...] Once a day for 90 days 16 2020 Active Drisdol 51257 UNIT 1 capsule Orally Monthy for 90 [...] Information RESULTS No Results REASON FOR VISIT No Information MEDICAL (GENERAL) HISTORY Type Description Date Medical History CAD s/p [place] - Dr. 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 - [facility] Surgical History APPENDECTOMY Surgical History CORONARY [...] Details Provider Name:Bal Persaud, 7 08:00:00 AM, [address], , [place], [address], Provider Name:Yuly Mclain, 2020-12 03:15:00 PM, [address], , [place], [address], Insurance Providers Payer Name Payer Address Payer Phone Insured Name Patient Relati onship to Insured Coverage Start Date Coverage End Date MEDICARE Part A and B [address] [facility] [address] JUAN HELTON self BCBS [place] [facility] PPO [id number] [place] [address] JUAN HELTON self
--- OUTSIDE RECORDS SUMMARY | 2021-02-07 08:07 | CCD ---
Author Author [facility] Organization [facility] Address Unknown Phone Unavailable Care Team Providers Care Rustic Fence Builder Name Role Phone Bal Persaud Unavailable PROBLEMS Type Condition ICD9-CM Code [id number] Code Onset Dates Condition S tatus W/U Status Risk SNOMED Code Notes Problem Vitamin d deficiency 268.9 Active confirmed 06233100 Problem Gout 274.9 Active confirmed 94040520 Problem Increasing prostate specific antigen level R97.20 Active confirmed 880717909 Problem Mixed hyperlipidemia 272.2 Active confirmed 534499846 Problem Memory changes R41.3 Active confirmed 55774 7006 Problem Vitamin D deficiency E55.9 Active confirmed 58682576 Problem Gastroesophageal reflux disease without esophagitis K21.9 Active confirmed 451146939 Problem Coronary artery disease invo lving [place] coronary artery of [place] heart without angina pectoris I25.10 Active confirmed 440556 367446412 Problem Essential tremor G25.0 Active confirmed 609 728382 Problem Abdominal aortic aneurysm (AAA) without rupture I7 1.4 Active confirmed 47645547 Problem Anemia, chronic disease D63.8 Active confirmed 970245310 Problem Constipation, unspecified constipation type K59.00 Active confirmed 32413460 Problem B12 deficiency E53.8 Active confirmed 15764 4004 Problem Urinary retention R33.9 Active confirmed 26 6233504 Problem Erectile dysfunction, unspecified erectile dysfunction typ e N52.9 Active confirmed 349419077 Problem Essential hypertension 401.9 Active confirmed 36993040 Problem Smoker F17.200 Active confirmed 94749518 Problem Enlarged thyroid E04.9 Active confirmed 371 6002 Problem Pure hypercholesterolemia E78.00 Active confirmed 537530926 Problem Pulmonary emphysema, unspecified emphysema type J4 3.9 Active confirmed 58938926 ALLERGIES Allergen (clinical drug ingredient) Drug/Non Drug Allergy do cumented on EMR Reaction Allergy Type Onset Date Status Mold, Dust sneezing Non Drug Allergy Active ENCOUNTERS from 1940 to 2020-12-21 Encounter Location Date Provider Diagnosis [facility] [address] [phone] [place] [address] Dec, Bal Pesraud IMMUNIZATIONS Vaccine Route Administration Date Status Influenza [...] Notes Total Score: 2 Interpretation: Alcohol Education Cheondoism: Question Answer Notes Cheondoism 13 Anabaptist No buddhism beliefs that would impact health care. Sexual [...] Notes Start Da te End Date Status Cialis 2.5 MG 1 tablet Orally QOD for 90 days Active Montelukast Sodium 10 MG 1 tablet Orally Once a day for 30 day(s) Active Aspirin 81 MG 1 tablet Orally Once a day Active Clopidogrel Bisulfate 75 MG 1 tablet Orally Once a day for 30 day(s) Active Gabapentin 600 mg 2 tablet Orally Twice a day Active Nitroglycerin 0.4 MG 1 tab Sublingual every 5 min utes x 3 as needed for chest pain for 8 Active Vitamin D 12.5 MCG/0.25ML 0.25 ml Orally Once a day for 30 day(s) Active Vitamin B12 1000 MCG 1 tablet Orally Once a day Apr, Active Fluticasone Propionate (Inhal) 50 MCG/BLIST 1 puff Inhalation Twice a day Active Fluorouracil 5 % 1 application Externally bid for 2 weeks for 30 Days Nov, Active Primidone 50 MG 1 tablet orally Daily for 90 days Active Ranitidine HCl 150 MG 1 tablet at bedtime Orally Once a day for 30 day(s) Oct, Active Tadalafil 2.5 mg TAKE 1 TABLET EVERY OTHER DAY Active Drisdol 17421 UNIT 1 capsule Orally Monthy for 90 days Active Flomax 0.4 MG 1 capsule Orally Once a day for 90 days 2020 Active Pantoprazole Sodium 40 mg 1 tab Orally Once a day Active Allopurinol 100 mg 1 tablet Orally Once a day Active Astelin 137 MCG/SPRAY 1 puff in each nostril Nasally Twice a day Active Plavix 75 MG 1 tablet Orally Once a day Active Furosemide 20 MG 1 tablet Orally PRN Active Losartan Potassium 50 MG 1 tablet Orally Once a day for 30 day(s ) Sep, Active Incruse Ellipta 62.5 MCG/INH 1 puff Inhalation Once a day for 30 days Sep, Active Ventolin HFA 108 (90 Base) MCG/ACT 1 puff as needed In halation every 4 hrs as needed for SOB for 30 days Sep, Activ e Rosuvastatin Calcium 40 MG 1 tablet Orally Once a day for 90 day(s) Active Crestor 40 MG 1 tablet Orally Once a day for 30 day(s) Active PROCEDURES No Information RESULTS No Results REASON FOR VISIT cysto MEDICAL (GENERAL) HISTORY Type Description Date Medical History CAD s/p [place] - Dr. 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 - [facility] Medical History Urinary retention Medical History Gross hematuria Surgical History APPENDECTOMY Surgical History CORONARY ARTERY [...] Information ASSESSMENTS No Information PLAN OF TREATMENT Next Appt Details Provider Name:Yuly Mclain, 2020-10 - 03:15:00 PM, [address], , [place], [address], Insurance Providers Payer Name Payer Address Payer Phone Insured Name Patient Relati onship to Insured Coverage Start Date Coverage End Date BCBS [place] [employer] PPO [phone] [facility] [place] [address] JUAN HELTON [facility] MEDICARE Part A and B [address] [facility] [address] [phone] JUAN HELTON self
--- OUTSIDE RECORDS SUMMARY | 2021-02-07 08:07 | CCD ---
Author Author [facility] Organization [facility] Address Unknown Phone Unavailable Care Team Providers Care Medical Research Assistant Name Role Phone Bal Persaud Unavailable PROBLEMS Type Condition ICD9-CM Code [id number] Code Onset Dates Condition S tatus W/U Status Risk SNOMED Code Notes Problem Vitamin d deficiency 268.9 Active confirmed 92355475 Problem Gout 274.9 Active confirmed 38305622 Problem Increasing prostate specific antigen level R97.20 Active confirmed 985805425 Problem Mixed hyperlipidemia 272.2 Active confirmed 242880300 Problem Memory changes R41.3 Active confirmed 04281 7006 Problem Vitamin D deficiency E55.9 Active confirmed 79742478 Problem Gastroesophageal reflux disease without esophagitis K21.9 Active confirmed 124090601 Problem Coronary artery disease invo lving [place] coronary artery of [place] heart without angina pectoris I25.10 Active confirmed 091438 829413522 Problem Essential tremor G25.0 Active confirmed 609 587491 Problem Abdominal aortic aneurysm (AAA) without rupture I7 1.4 Active confirmed 44148282 Problem Anemia, chronic disease D63.8 Active confirmed 599251966 Problem Constipation, unspecified constipation type K59.00 Active confirmed 14215564 Problem B12 deficiency E53.8 Active confirmed 87530 4004 Problem Urinary retention R33.9 Active confirmed 26 9359432 Problem Erectile dysfunction, unspecified erectile dysfunction typ e N52.9 Active confirmed 680273218 Problem Essential hypertension 401.9 Active confirmed 88964122 Problem Smoker F17.200 Active confirmed 57091783 Problem Enlarged thyroid E04.9 Active confirmed 371 6002 Problem Pure hypercholesterolemia E78.00 Active confirmed 766648675 Problem Pulmonary emphysema, unspecified emphysema type J4 3.9 Active confirmed 28463064 ALLERGIES Allergen (clinical drug ingredient) Drug/Non Drug Allergy do cumented on EMR Reaction Allergy Type Onset Date Status Mold, Dust sneezing Non Drug Allergy Active ENCOUNTERS from 1940 to 2020-12-10 Encounter Location Date Provider Diagnosis [facility] [address] [phone] [place] [address] 07 Dec, 2020 Bal Persaud Gross hematuria R31.0 and Urinary retent ion R33.9 IMMUNIZATIONS Vaccine Route Administration Date Status Influenza [...] Notes Total Score: 2 Interpretation: Alcohol Education Nondenominational: Question Answer Notes Nondenominational 13 Scientologist No evangelical beliefs that would impact health care. Sexual [...] REASON FOR REFERRAL No Information VITAL SIGNS Weight 196.8 lbs Dec, Height 70 in Dec, BMI 28.23 kg/m2 Dec, Heart Rate 76 /min Dec, Respiratory Rate 18 /min Dec, Temperature 97.0 degrees Fahrenheit Dec, Oximetry 96 Dec, Blood pressure systolic 124 mm Hg Dec, Blood pressure diastolic 66 mm Hg Dec, MEDICATIONS Medication SIG (Take, Route, Frequency, Duration) [...] 1 TABLET EVERY OTHER DAY Active Drisdol 30953 UNIT 1 capsule Orally Monthy for 90 days Active Flomax 0.4 MG 1 capsule Orally Once a day for 90 days 16 2020 Active Pantoprazole Sodium 40 mg 1 [...] a day for 30 day(s) Active PROCEDURES from 1940 to 2020-12-10 Procedure Date Ordered Result Body Site BLADDER IRRIGATION, SIMPLE, LAVAGE AND/OR INSTILLATION 7 N/A Voiding Trial 2020-12-08 N/A RESULTS Component Value Reference Range CBC - Complete Blood Count Reviewed date:12/09/2020 07:54:34 Interpretation: Performing Lab:[facility], [facility] [address] [address] , ,[place] [address] WHITE BLOOD COUNT 7.0 4.0-10.0 RED BLOOD COUNT 3.33 4.30-6.10 HEMOGLOBIN 9.4 13.5-17.5 HEMATOCRIT 29.6 42.0-52.0 MEAN CORPUSCULAR VOLUME 88.9 80.0-96.0 MEAN CORPUSCULAR HEMOGLOBIN 28.2 27.0-33.0 MEAN CORPUSCULAR HGB CONC 31.8 32.0-36.5 RED CELL DISTRIBUTION WIDTH 18.4 11.5-14.5 PLATELET COUNT, AUTOMATED 199 150-450 REASON FOR VISIT URINARY RETENTION AND TOV MEDICAL (GENERAL) HISTORY Type Description Date Medical History CAD s/p BENNETT Carmona Medical History TIA Medical History AORTIC [...] Medical History 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 - [facility] Medical History Urinary retention Medical History [...] No Information FUNCTIONAL STATUS No Information ASSESSMENTS Encounter Date Diagnosis Assessment Notes Treatment Notes Treatm ent Clinical Notes Dec, Gross hematuria (ICD-10 - R31.0) Dec, Urinary retention (ICD-10 - R33.9) PLAN OF TREATMENT Next Appt Details Cystoscopy Reason:Hematuria and retentio n Provider Name:Yuly Mclain, 2020-12 03:15:00 PM, [address], , [place], [address], Provider Name:Bal Persaud, 2021-01-0 8 08:45:00 AM, [address], , [place], [address], Follow Up:CystoscopyHematuria and retention Insurance Providers Payer Name Payer Address Payer Phone Insured Name Patient Relati onship to Insured Coverage Start Date Coverage End Date MEDICARE Part A and B [address] [facility] [id number] JUAN HELTON self BCBS [place] PPO [id number] [facility] [place] [address] JUAN HELTON self
--- OUTSIDE RECORDS SUMMARY | 2021-02-07 08:07 | CCD ---
Author Author [facility] Organization [facility] Address Unknown Phone Unavailable Care Team Providers Care Drop Machine Operator Name Role Phone Yuly Mclain Unavailable PROBLEMS Type Condition ICD9-CM Code [id number] Code Onset Dates Condition S tatus W/U Status Risk SNOMED Code Notes Problem Mixed hyperlipidemia 272.2 Active confirmed 370179731 Problem Vitamin d deficiency 268.9 Active confirmed 61956247 Problem Vitamin D deficiency E55.9 Active confirmed 89241057 Problem Increasing prostate specific antigen level R97.20 Active confirmed 778507992 Problem Coronary artery disease invo lving new[place] coronary artery of [place] heart without angina pectoris I25.10 Active confirmed 934797 152953169 Problem Memory changes R41.3 Active confirmed 98217 7006 Problem Erectile dysfunction, unspecified erectile dysfunction typ e N52.9 Active confirmed 434293261 Problem Gastroesophageal reflux disease without esophagitis K21.9 Active confirmed 797917217 Problem Abdominal aortic aneurysm (AAA) without rupture I7 1.4 Active confirmed 37090915 Problem Anemia, chronic disease D63.8 Active confirmed 934602164 Problem Smoker F17.200 Active confirmed 02200976 Problem Constipation, unspecified constipation type K59.00 Active confirmed 75270251 Problem Essential tremor G25.0 Active confirmed 609 130486 Problem Essential hypertension 401.9 Active confirmed 49450344 Problem Urinary retention R33.9 Active confirmed 26 4647524 Problem B12 deficiency E53.8 Active confirmed 54903 4004 Problem Gout 274.9 Active confirmed 53697280 Problem Enlarged thyroid E04.9 Active confirmed 371 6002 Problem Pure hypercholesterolemia E78.00 Active confirmed 992568119 Problem Pulmonary emphysema, unspecified emphysema type J4 3.9 Active confirmed 13646952 Problem Enlarged prostate N40.0 Active confirmed 24 1025901 ALLERGIES Allergen (clinical drug ingredient) Drug/Non Drug Allergy do cumented on EMR Reaction Allergy Type Onset Date Status Mold, Dust sneezing Non Drug Allergy Active ENCOUNTERS from 1940 to 2021-01-16 Encounter Location Date Provider Diagnosis [facility] [address] [place] [id number] Jan, 2021 Yuly Wetterhahn Bronchitis J40 ; ESTEVEZ (dyspnea on exertio n) R06.00 ; Anemia, unspecified type D64.9 ; Anemia, chronic disease D63.8 ; Pulmonary emphysema, unspecified emphysema type J43.9 and Constipation, unspecified constipation type K59.00 IMMUNIZATIONS Vaccine Route Administration Date Status COVID-19 dose #1 given elsewhere Unspecified Unknown Mar 29, 2020 Administered COVID-19 dose #1 given elsewhere Unspecified Unknown Mar 08, 2020 Administered Influenza 18 yrs & older Flublok IM Intramuscular Dec 22, 2020 Administered Influenza 18 yrs & older Flublok IM Intramuscular Jan 16, 2019 Administered Influenza 18 yrs & older Flublok IM Intramuscular Jan 15, 2018 Administered Zoster 0.65mL Zostavax Unknown Mar 22, 2014 Administe red Pneumococcal Adult 0.5mL Pneumovax 23 Unknown Mar [...] Notes Total Score: 2 Interpretation: Alcohol Education Samaritan: Question Answer Notes Samaritan 13 Oriental Orthodox No religion beliefs that would impact health care. 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 REASON FOR REFERRAL from 1941 to 2021-01-16 Reason Patient followed by Dr. Rosales er for AYDEE|Has been having Increased ESTEVEZ and recurrent episodes of bronchitis over past 3 - 4 months - smoker Diagnosis 1 Bronchitis (J40) Diagnosis 2 Pulmonary emphysema, unspeci fied emphysema type (J43.9) Diagnosis 3 ESTEVEZ (dyspnea on exertion) (R 06.00) Referral Organization [facility] Kevan Referring Provider First Name Yuly Referring Provider Last Name Chemo Referring Provider Specialty Family Medicine Referred Provider Jesus Root Referral Priority Routine General Notes [facility]01/10/2021 8:03:50 AM > faxed VITAL SIGNS Weight 204.4 lbs Jan, Height 70 in Jan, BMI 29.33 kg/m2 Jan, Heart Rate 67 /min Jan, Respiratory Rate 18 /min Jan, Temperature 97.8 degrees Fahrenheit Jan, Oximetry 95 Jan, Blood pressure systolic 120 mm Hg Jan, Blood pressure diastolic 70 mm Hg Jan, MEDICATIONS Medication SIG (Take, Route, Frequency, Duration) Notes Start Da te End Date Status Colace 100 MG 1 capsule as needed Orally twice a day for 30 da y(s) Jan, Active Vitamin B12 1000 MCG 1 tablet Orally Once a day 14 Apr, 20 19 Active Ferrous Sulfate 325 (65 Fe) MG 1 tablet Orally twice a day for 3 0 day(s) Jan, Active Gabapentin 600 mg 2 tablet Orally Twice a day Active Trelegy Ellipta 100-62.5-25 MCG/INH 1 puff Inhalation Once a day for 30 days Jan, Active Nitroglycerin 0.4 MG 1 tab Sublingual every 5 min utes x 3 as needed for chest pain for 8 Active Furosemide 20 MG 1 tablet Orally PRN Active Cialis 2.5 MG 1 tablet Orally QOD for 90 days Active Aspirin 81 MG 1 tablet Orally Once a day Active Ranitidine HCl 150 MG 1 tablet at bedtime Orally Once a day for 30 day(s) Oct, Active Plavix 75 MG 1 tablet Orally Once a day Active Fluticasone Propionate (Inhal) 50 MCG/BLIST 1 puff Inhalation Twice a day Active Losartan Potassium 50 MG 1 tablet Orally Once a day for 30 day(s ) Sep, Active Ventolin HFA 108 (90 Base) MCG/ACT 1 puff as needed In halation every 4 hrs as needed for SOB for 30 days Sep, Activ e Tessalon Perles 100 MG 1 capsule as needed Orally Three times a day Active Rosuvastatin Calcium 40 MG 1 tablet Orally Once a day for 90 day(s) Active Tadalafil 2.5 mg TAKE 1 TABLET EVERY OTHER DAY Active predniSONE 10 MG 1 tablet Orally Once a day for 30 day(s) taper Active Vitamin D 12.5 MCG/0.25ML 0.25 ml Orally Once a day for 30 day(s) Active Pantoprazole Sodium 40 mg 1 tab Orally Once a day Active Flomax 0.4 MG 1 capsule Orally Once a day for 90 days 16 2020 Active Primidone 50 MG 1 tablet orally Daily for 90 days Active Astelin 137 MCG/SPRAY 1 puff in each nostril Nasally Twice a day Active Drisdol 11831 UNIT 1 capsule Orally Monthy for 90 days Active Fluorouracil 5 % 1 application Externally bid for 2 weeks for 30 Days Nov, Active Allopurinol 100 mg 1 tablet Orally Once a day Active Amoxicillin-Pot Clavulanate 875-125 MG 1 tablet Orally every 12 hrs for 10 day(s) Active Montelukast Sodium 10 MG 1 tablet Orally Once a day for 30 day(s) Active Clopidogrel Bisulfate 75 MG 1 tablet Orally Once a day for 30 day(s) Active PROCEDURES No Information RESULTS Component Value Reference Range NT-PRO BNP Reviewed date:01/09/2021 16:42:18 Interpretation: Performing Lab:[facility], [facility] [address] [facility] [address] , ,[place] [address] NT-PRO BNP 388 <450 Comprehensive Metabolic Profile (CMP) Reviewed date:01/09/2021 16:41:50 Interpretation: Performing Lab:[facility] [address] [place] [address] , ,[facility]01 GLUCOSE, FASTING 86 70-100 BLOOD UREA NITROGEN 20 7-18 CREATININE FOR GFR 0.72 0.70-1.30 GLOMERULAR FILTRATION RATE > 60.0 >42 SODIUM LEVEL 142 136-145 POTASSIUM SERUM 4.7 3.5-5.1 CHLORIDE LEVEL 109 98-107 CARBON DIOXIDE LEVEL 30 21-32 CALCIUM LEVEL 9.3 8.8-10.2 AST/SGOT 18 7-37 ALT/SGPT 19 12-78 ALKALINE PHOSPHATASE 79 45-117 BILIRUBIN,TOTAL 0.3 0.2-1.0 TOTAL PROTEIN 6.9 6.4-8.2 ALBUMIN 3.3 3.2-5.2 ALBUMIN/GLOBULIN RATIO 0.9 FERRITIN Reviewed date:01/09/2021 16:42:21 Interpretation: Performing Lab:[facility] [address] [place] [address] , ,[place] [address] FERRITIN 33 26-388 FREE T4 & TSH PANEL Reviewed date:01/09/2021 16:42:12 Interpretation: Performing Lab:[facility] [address] [place] [address] , ,[place] [address] THYROID STIMULATING HORMONE 0.535 0.358-3.740 FREE T4 1.03 0.76-1.46 VITB12 & FOL Reviewed date:01/09/2021 16:42:16 Interpretation: Performing Lab:[facility] [address] [place] [id number] , ,[place] [address] VITAMIN B12 LEVEL 348 FOLATE 5.5 CBC with Differential Reviewed date:01/10/2021 07:45:00 Interpretation: Performing Lab:[facility] [address] [place] [address] , ,[facility]01 WHITE BLOOD COUNT 10.0 4.0-10.0 RED BLOOD COUNT 3.56 4.30-6.10 HEMOGLOBIN 9.9 13.5-17.5 HEMATOCRIT 32.1 42.0-52.0 MEAN CORPUSCULAR VOLUME 90.2 80.0-96.0 MEAN CORPUSCULAR HEMOGLOBIN 27.8 27.0-33.0 MEAN CORPUSCULAR HGB CONC 30.8 32.0-36.5 RED CELL DISTRIBUTION WIDTH 17.7 11.5-14.5 PLATELET COUNT, AUTOMATED 239 150-450 NEUTROPHILS % 83.8 36.0-66.0 LYMPH % 9.1 24.0-44.0 MONO % 5.9 2.0-8.0 EOS % 0.4 0.0-3.0 BASO % 0.2 0.0-1.0 NEUTROPHILS # 8.4 1.5-8.5 LYMPH # 0.9 1.5-5.0 MONO # 0.6 0.0-0.8 EOS # 0.0 0.0-0.5 BASO # 0.0 0.0-0.2 REASON FOR VISIT F/u pnuemonia/bronchitis from the summer MEDICAL (GENERAL) HISTORY Type Description Date Medical History CAD s/p CT - Dr. 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 - [facility] Medical History Urinary retention Medical History Gross [...] Notes Treatment Notes Treatm ent Clinical Notes Jan, Bronchitis (ICD-10 - J40) Continue Prednisone taper and Augmentin. Get CXR Check labs Refer to pulmonary for Chronic ESTEVEZ/COPD wi repeated exacerbations since this past summer Has been evaluated by Cardiology with stress test in July 2020 with EF 55% Jan, ESTEVEZ (dyspnea on exertion) (ICD-10 - R06.00) Jan, Anemia, unspecified type (ICD-10 - D64.9) Jan, Anemia, chronic disease (ICD-10 - D63.8) iron def since this summer when he underwent endoleak repair Will have him start iron and take stool softener witht his and take with vitamin C Mmonitor trend Consider referral to GI (Has followed with Dr. Lerner in the past) Jan, Pulmonary emphysema, unspecified emphysema type (ICD-10 - J43.9) I will switch from Incruse to Trelegy and then plan f/u with pulmonary for more formal PFTs and further adjustments as beeded Jan, Constipation, unspecified constipation type (ICD -10 - K59.00) Bowels have been normal lately - jay need stool softener with iron supplement to prevent contipation PLAN OF TREATMENT Medication Medication Name Sig Start Date Stop Date Colace 100 MG 1 capsule as needed Orally twice a day for 30 da y(s) Jan, Ferrous Sulfate 325 (65 Fe) MG 1 tablet Orally twice a day f or 30 day(s) Jan, Trelegy Ellipta 100-62.5-25 MCG/INH 1 puff Inhalation Once a day for 30 days Jan, Treatment Notes Assessment Notes Clinical Notes Bronchitis Continue Prednisone taper and Augmentin.Get CXRCheck labsRefer to pulmonary for Chronic ESTEVEZ/COPD wi repeated exacerbations since this past summerHas been evaluated by Cardiology with stress test in July 2020 with EF 55% Anemia, chronic disease iron def since t his summer when he underwent endoleak repairWill have him start iron and take stool softener witht his and take with vitamin CMmonitor trendConsider referral to GI (Has followed with Dr. Lerner in the past) Pulmonary emphysema, unspecified emphysema type I will switch from Incruse to Trelegy and then plan f/u with pulmonary for more formal PFTs and further adjustments as beeded Constipation, unspecified constipation type Bowels have been normal lately - jay need stool softener with iron supplement to prevent contipation Pending Tests Test Name Order Date IRON (FE) 2021-01-09 [facility] Chest, 2 view (PA\\Lat) 2021-01-09 TOTAL IRON BINDING CAPACIT 2021-01-09 Future Test Test Name Order Date TOTAL IRON BINDING CAPACIT 20210109 Referrals Referral Date Details Patient followed by Dr. Rosales er for AYDEE|Has been having Increased ESTEVEZ and recurrent episodes of bronchitis over past 3 - 4 months - smoker, Jesus Root Next Appt Details labs and CXR today, f/u as scheduled Aida son: Insurance Providers Payer Name Payer Address Payer Phone Insured Name Patient Relati onship to Insured Coverage Start Date Coverage End Date MEDICARE Part A and B [facility] [address] [place] [id number] [phone] JUAN HELTON self BCBS [place] PPO [phone] [facility] [place] [address] JUAN HELTON self"
--- OUTSIDE RECORDS SUMMARY | 2021-02-07 08:07 | CCD | Continuity of Care Document ---
Author Author Bogdan CHEATHAM P.A. Organization Unknown Address [address] [place] [address] [place] [address] Phone [phone] Care Team Providers Care Valet Manager Name Role Phone ChemoYuly AUTM [phone] Problems Description No Information Available Social History Type Date Description Comments Sex Unknown Tobacco Use Start: Unknown Never Smoked Cigarettes Tobacco Use Start: Unknown Current Cigar Smoker 1 Daily Smoking Status Reviewed: 01/07/21 Current Cigar Smoker 1 Daily ETOH Use Occasionally consumes alcohol Tobacco Use Start: Unknown Patient has never smoked Allergies and adverse reactions Active Allergies Criticality Reaction | Severity Comments Date NKDA Unable to assess criticality 07/28/2015 Mold Unable to assess criticality 08/25/2017 Dust Unable to assess criticality 08/25/2017 Medications Active Medications SIG Qnty Indications Ordering Provide r Date Loratadine 10mg Tablets 1 by mouth every day 30tabs Arnaud Arreaga JR., M.D. Plavix Unknown Aspirin c Unknown Crestor Unknown Allopurinol Unknown Gabapentin Unknown Pantoprazole Sodium Unknown Astelin Unknown Fluticasone Propionate Unknown Singulair 10mg Tablets 1 tab by mouth qdaily Unknown Primidone 50mg Tablets Unknown B12 Fast Dissolve 5000mcg Tablets Dispers Unknown Vitamin D 50mcg (1999) Capsules Unknown History Medications Ciprodex 0.3-0.1% Suspension 4 drops right ear twice a day for 7 days 7.500ml H60.91 Arnaud Reilly M.D. 10/20/2020 - 10/27/2020 Amoxicillin/Clavulanate Potassium 875-125mg Tablets 1 tab by mouth twice a day for 7 days 14tabs H60.91 Arnaud Arreaga JR., M.D. 10/20/2020 - 10/27/2020 Immunizations Description No Information Available Vital Signs Date Vital Result Comment 01/07/2021 8:11am BP Systolic 130 mmHg BP Diastolic 64 mmHg Heart Rate 54 /min Respiratory Rate 18 /min O2 % BldC Oximetry 98 % Body Temperature 97.8 F Weight 195.00 lb Height 70.5 inches 5'10.50" BMI (Body Mass Index) 27.6 kg/m2 Pain Level 0 10/24/2020 1:09pm BP Systolic 136 mmHg BP Diastolic 65 mmHg Heart Rate 59 /min Respiratory Rate 14 /min O2 % BldC Oximetry 98 % Body Temperature 97.5 F Weight 190.00 lb Height 70.5 inches 5'10.50" BMI (Body Mass Index) 26.9 kg/m2 Pain Level 0 Results Description No Information Available Procedures Date Code Description Status 01/07/2021 53344 Office/Outpatient Established Mo d MDM 30-39 Min Completed 10/24/2020 45211 Office/Outpatient Established Lo w MDM 20-29 Min Completed 10/20/2020 64775 Office/Outpatient Established Lo w MDM 20-29 Min Completed Medical Devices Description No Information Available Encounters Type Date Location Provider Dx Diagnosis Office Visit 01/07/2021 8:00a Main Office Valente Cheatham P.Christy J4 2 Unspecified chronic bronchitis R05.1 Acute cough Z20.828 Contact w and exposure to ot h viral communicable diseases Office Visit 10/24/2020 2:50p Main Office Valente Cheatham, P.A. H6 0.91 Unspecified otitis externa, right ear Office Visit 10/20/2020 8:00a Main Office Valente Cheatham P.A. H6 0.91 Unspecified otitis externa, right ear Assessments Date Code Description Provider 01/07/2021 J42 Unspecified chronic bronchitis J lew Cheatham P.AMelba 01/07/2021 R05.1 Acute cough Valente leslie P.AMelba 01/07/2021 Z20.828 Contact with and (corrales spected) exposure to other viral communicable diseases Valente Cheatham, P.A. 10/24/2020 H60.91 Unspecified otitis externa, makayla lopez ear Valente Cheatham, P.A. 10/20/2020 H60.91 Unspecified otitis externa, makayla lopez ear Valente Cheatham, P.A. Plan of Treatment No Information Available Functional Status Description No Information Available Mental Status Description No Information Available Referrals Description No Information Available
--- OUTSIDE RECORDS SUMMARY | 2021-02-07 08:07 | CCD | Continuity of Care Document ---
Author Author Bogdan ROOT MD Organization Unknown Address [address] [place] [address] Phone [phone] Care Team Providers Care Sales Superintendent Name Role Phone BohayleehoangjustinYuly P.A.-C. AUTM [phone] Problems Active Problems Provider Date Essential [...] Comments Sex Unknown Tobacco Use Start: Unknown Current Cigar Smoker 1 Daily Smoking Status Reviewed: 01/30/21 Current Cigar Smoker 1 Daily ETOH Use Denies alcohol use Tobacco Use Start: Unknown Quit 2006 Recreational Drug Use Denies Drug Use Allergies and adverse reactions Description No Known Drug Allergies Medications Active Medications SIG Qnty Indications Ordering Provide r Date Ipratropium [place] 0.06% Solution 2 squirts each nostril @ [...] mouth every day Unknown Vitamin D (Ergocalciferol) [id number] Capsules Q 2 WKS Unknown Furosemide 20mg [...] CPT Code Status Date Vaccine Lot # [id number] Given 12/29/2015 Influenza Virus Split 3 Yrs And Above For Intramuscular Use Q2036 Given 01/04/2012 Influenza Vaccine 3 Years Of Age Or Older (Flulaval) 79078 Given 01/17/2010 Influenza Virus Split 3 Yrs And Above For Intramuscular Use Vital Signs Date Vital Result Comment 01/30/2021 8:44am BP Systolic 102 mmHg BP Diastolic 62 mmHg Heart Rate 53 /min O2 % BldC Oximetry 97 % Height 72 inches 6'0" Weight 204.00 lb BMI (Body Mass Index) 27.7 kg/m2 [place] Body Weight 178 lb Weight 92.534 kg BSA (Body Surface Area) 2.15 m2 05/07/2019 12:54pm BP Systolic 126 mmHg BP Diastolic 80 mmHg Heart Rate 80 /min O2 % BldC Oximetry 97 % Room Air Height 72 inches 6'0" Weight 237.00 lb BMI (Body Mass Index) 32.1 kg/m2 [place] Body Weight 178 lb Weight 107.503 kg BSA (Body Surface Area) 2.29 m2 Results Test Acquired Date Facility Test Result H/L Range Note FVL/[place] 01/30/2021 [facility] SEE IMAGE FVC-Pred 4.37 L FVC-Pre 3.81 L FVC-%Pred-Pre 87 L FVC-LLN 3.38 L Fev1-Pred 3.13 L Fev1-Pre 3.12 L Fev1-%Pred-Pre 99 L Fev1-LLN 2.29 L Fev6-Pred 4.09 L Fev6-Pre 3.80 L Fev6-%Pred-Pre 92 L Fev6-LLN 3.13 L Yyd8qnf-Uskf 72 % Abc4fqq-Zob 82 % Jhz0ulo-%Pred-Pre 114 % Vii5utf-UXZ 62 % Ngv3qzw-Dltf 94 % Uph9vph-Kpp 100 % Ejv8vto-%Pred-Pre 106 % FEFMax-Pred 7.69 L/E/sec FEFMax-Pre 9.19 L/E/sec FEFMax-%Pred-Pre 119 L/E/sec FEFMax-LLN 5.23 L/E/sec Jmt2031-Edco 2.16 L/E/sec Hzt2275-Wve 3.02 L/E/sec Hte5730-%Pred-Pre 139 L/E/sec Opo6876-RCD 0.47 L/E/sec ExpTime-Pre 7.49 sec Hmt2ogh1-Ktwq 76 % Inh5iii6-Hls 82 % Nkq7chf3-%Pred-Pre 107 % Bxy8thj6-WQE 67 % Procedures Description No Information Available Medical Devices Description No Information Available Encounters Description No Information Available Assessments Description No Information Available Plan of Treatment No Information Available Functional Status Description No Information Available Mental Status Description No Information Available Referrals Refer to Reason for Referral Status Appt Jesus Root M.D. PULM EMPHYSEMA, ESTEVEZ Created [facility] [address] [place], [place] [id number] [phone]
--- OUTSIDE RECORDS SUMMARY | 2021-02-07 08:07 | CCD | Continuity of Care Document ---
Author Author Bogdan ROOT MD Organization Unknown Address [address] [place] [address] Phone [phone] Care Team Providers Care Information Technology Assistant Name Role Phone BohayleehoangjustinYuly P.A.-C. AUTM [phone] Problems Active Problems Provider Date Essential [...] Qnty Indications Ordering Provide r Date Ipratropium [place] 0.06% Solution 2 squirts each nostril @ [...] mouth every day Unknown Vitamin D (Ergocalciferol) [id number] Capsules Q 2 WKS Unknown Furosemide 20mg [...] CPT Code Status Date Vaccine Lot # [id number] Given 12/29/2015 Influenza Virus Split 3 Yrs And Above For Intramuscular Use Q2036 Given 01/04/2012 Influenza Vaccine 3 Years Of Age Or Older (Flulaval) 18051 Given 01/17/2010 Influenza Virus Split 3 Yrs And Above For Intramuscular Use Vital Signs Date Vital Result Comment 01/30/2021 8:44am BP Systolic 102 mmHg BP Diastolic 62 mmHg Heart Rate 53 /min O2 % BldC Oximetry 97 % Height 72 inches 6'0" Weight 204.00 lb BMI (Body Mass Index) 27.7 kg/m2 [place] Body Weight 178 lb Weight 92.534 kg BSA (Body Surface Area) 2.15 m2 05/07/2019 12:54pm BP Systolic 126 mmHg BP Diastolic 80 mmHg Heart Rate 80 /min O2 % BldC Oximetry 97 % Room Air Height 72 inches 6'0" Weight 237.00 lb BMI (Body Mass Index) 32.1 kg/m2 [place] Body Weight 178 lb Weight 107.503 kg [...] L Fev6-%Pred-Pre 92 L Fev6-LLN 3.13 L Nuu1xhv-Tiqf 72 % Qxo0opm-Jlb 82 % Uzs9qit-%Pred-Pre 114 % Ipc6bpj-MTE 62 % Ntd9ire-Dnuo 94 % Twt8xwm-Nen 100 % Ven2gxw-%Pred-Pre 106 % FEFMax-Pred 7.69 L/E/sec FEFMax-Pre 9.19 L/E/sec FEFMax-%Pred-Pre 119 L/E/sec FEFMax-LLN 5.23 L/E/sec Gnb2943-Yxlr 2.16 L/E/sec Ozt7428-Bur 3.02 L/E/sec Bxw9923-%Pred-Pre 139 L/E/sec Scf1902-YKF 0.47 L/E/sec ExpTime-Pre 7.49 sec Asb3pmi9-Amtu 76 % Yus4clv3-Wwe 82 % Osq7ora6-%Pred-Pre 107 % Vyu6zaj5-XFQ 67 % Procedures Description No Information Available Medical Devices Description No Information Available Encounters Description No Information Available Assessments Date Code Description Provider 01/30/2021 R05.9 Cough, unspecified Jesus adams MD 01/30/2021 R06.02 Shortness of breath Jesus valerio MD 01/30/2021 R91.8 Other nonspecific abnormal findi ng of lung field Jesus Root MD 01/30/2021 G47.33 Obstructive sleep apnea (adult) (pediatric) Jesus Root MD Plan of Treatment Future Appointment(s):* 02/15/2021 10:00 am - Jesus Root MD at [facility]monary[facility]acic * 01/31/2021 12:00 pm - Nocturnal Oximetry at [facility]/Thoracic * 01/31/2021 1:00 pm - Pulmonary Lab at [facility] Pulmonary/Thoracic 01/30/2021 - Jesus Root MD* R05.9 Cough, unspecified * R06.02 Shortness of breath * R91.8 Other nonspecific abnormal finding of lung field * G47.33 Obstructive sleep apnea (adult) (pediatric) * * New Labs:* PFT W/HGB On Meds, Scheduled: 01/31/21 * Follow up:* See testing Functional Status Description No Information Available Mental Status Description No Information Available Referrals Refer to Dr Reason for Referral Status Appt Date Jesus Root M.D. PULM EMPHYSEMA, ESTEVEZ Created [facility] [address] [place], [place] [id number] [phone]
--- OUTSIDE RECORDS SUMMARY | 2021-02-07 08:07 | CCD | Continuity of Care Document ---
Author Author Bogdan MCCABE Organization Unknown Address [address] [place], [place] [address] Phone [phone] Care Team Providers Care Weight Loss Physician Name Role Phone Yuly Mclain AUTM [phone] Problems Description No Information Available Social History Type Date Description Comments Sex Unknown Tobacco Use Start: Unknown Never Smoked Cigarettes Tobacco Use Start: Unknown Current Cigar Smoker 1 Daily Smoking Status Reviewed: 01/27/21 Current Cigar Smoker 1 Daily ETOH Use Occasionally consumes alcohol Tobacco Use Start: Unknown Patient has never smoked Allergies and adverse reactions Active Allergies Criticality Reaction | Severity Comments Date NKDA Unable to assess criticality 07/28/2015 Mold Unable to assess criticality 08/25/2017 Dust Unable to assess criticality 08/25/2017 Medications Active Medications SIG Qnty Indications Ordering Provide r Date Proventil HFA 108(90Base) mcg/Act Aerosol 2puffs every 4-6hrs as needed for sob/coughing 20.1gm J20.9 Arnaud Arreaga JR., M.D. 01/27/2021 Prednisone 20mg Tablets take one tab three times a day for three days, then take one tab twice a day for three days, then take one tab daily for three days. 18tabs J20.9 Arnaud villagran JR., M.D. 01/27/2021 Doxycycline Monohydrate 100mg Caps ules 1 cap by mouth twice a day for 10 days 20caps J20.9 Arnaud Arreaga JR., M.D. 01/27/2021 Loratadine 10mg Tablets 1 by mouth every day 30tabs Arnaud Arreaga JR., M.D. Fluticasone Propionate Unknown Trelegy Ellipta Unknown 0 Vitamin D 50mcg (2000 Ut) Capsules Unknown B12 Fast Dissolve 5000mcg Tablets Dispers Unknown Primidone 50mg Tablets Unknown Singulair 10mg Tablets 1 tab by mouth qdaily Unknown Astelin Unknown Pantoprazole Sodium Unknown Gabapentin Unknown Allopurinol Unknown Crestor Unknown Aspirin c Unknown Plavix Unknown History Medications Amoxicillin/Clavulanate Potassium 875-125mg Tablets 1 tab by mouth twice a day for 7 days 14tabs J42 Arnaud Arreaga JR., M.D. 01/07/2021 - 01/14/2021 Prednisone 10mg Tablets take 4 tabs by mouth days 1-3, take 3 tabs by mouth days 4-6, take 2 tabs by mouth days 7-9, take 1 tab by mouth days 10-12 30tabs Candie42 Arnaud harkins JR., M.D. 01/07/2021 - 01/19/2021 Benzonatate 200mg Capsules 1 capsule by mouth three times daily as needed for dry cough 20caps J42 Arnaud Arreaga JR., M.D. 01/07/2021 - 01/14/2021 Ciprodex 0.3-0.1% Suspension 4 drops right ear twice a day for 7 days 7.500ml H60.91 Arnaud Reilly M.D. 10/20/2020 - 10/27/2020 Amoxicillin/Clavulanate Potassium 875-125mg Tablets 1 tab by mouth twice a day for 7 days 14tabs H60.91 Arnaud Arreaga JR., M.D. 10/20/2020 - 10/27/2020 Immunizations Description No Information Available Vital Signs Date Vital Result Comment 01/27/2021 6:43pm BP Systolic 148 mmHg BP Diastolic 74 mmHg Heart Rate 105 /min Respiratory Rate 16 /min O2 % BldC Oximetry 96 % Body Temperature 98.0 F Weight 195.00 lb Height 70.5 inches 5'10.50" BMI (Body Mass Index) 27.6 kg/m2 Pain Level 0 01/07/2021 8:11am BP Systolic 130 mmHg BP Diastolic 64 mmHg Heart Rate 54 /min Respiratory Rate 18 /min O2 % BldC Oximetry 98 % Body Temperature 97.8 F Weight 195.00 lb Height 70.5 inches 5'10.50" BMI (Body Mass Index) 27.6 kg/m2 Pain Level 0 Results Description No Information Available Procedures Date Code Description Status 01/27/2021 55453 Office/Outpatient Established Mo d MDM 30-39 Min Completed 01/07/2021 70417 Office/Outpatient Established Mo d MDM 30-39 Min Completed 10/24/2020 39025 Office/Outpatient Established Lo w MDM 20-29 Min Completed 10/20/2020 54171 Office/Outpatient Established Lo w MDM 20-29 Min Completed Medical Devices Description No Information Available Encounters Type Date Location Provider Dx Diagnosis Office Visit 01/27/2021 2:25p Main Office PRITESH Mcdonald J20 .9 Acute bronchitis, unspecified Office Visit 01/07/2021 8:00a Main Office Valente Collins P.AMelba J4 2 Unspecified chronic bronchitis R05.1 Acute cough Z20.828 Contact w and exposure to ot h viral communicable diseases Office Visit 10/24/2020 2:50p Main Office Valente Collins P.A. H6 0.91 Unspecified otitis externa, right ear Office Visit 10/20/2020 8:00a Main Office Valente Collins P.A. H6 0.91 Unspecified otitis externa, right ear Assessments Date Code Description Provider 01/27/2021 J20.9 Acute bronchitis, unspecified Mi PRITESH Rodriguez 01/07/2021 J42 Unspecified chronic bronchitis Candie Collins, P.A. 01/07/2021 R05.1 Acute cough Valente leslie, P.A. 01/07/2021 Z20.828 Contact with and (corrales spected) exposure to other viral communicable diseases Valente Collins, P.A. 10/24/2020 H60.91 Unspecified otitis externa, righ t ear Valente Collins, P.A. 10/20/2020 H60.91 Unspecified otitis externa, righ t ear Valente Collins P.A. Plan of Treatment 01/27/2021 - PRITESH Mcdonald* J20.9 Acute bronchitis, unspecified* New Medication:* Doxycycline Monohydrate 100 mg - 1 cap by mouth twice a day for 10 days * Proventil HFA 108(90 Base) mcg/Act - 2puffs every 4-6hrs as needed for sob/coughing * Prednisone 20 mg - take one tab three times a day for three days, then take one tab twice a day for three days, then take one tab daily for three days. * Comments:* Warm fluids/tylenol/rest/time.f/u PRN Functional Status Description No Information Available Mental Status Description No Information Available Referrals Description No Information Available
--- OUTSIDE RECORDS SUMMARY | 2021-02-07 08:07 | CCD | Continuity of Care Document ---
Author Author Pul[facility], Bogdan Duran Organization Unknown Address [address] [place] [address] Phone [phone] Care Team Providers Care Pipe Smoking Machine Offbearer Name Role Phone Yuly Mclain P.A.-C. AUTM [phone] Problems Active Problems Provider Date Essential [...] Qnty Indications Ordering Provide r Date Ipratropium Sandwich 0.06% Solution 2 squirts each nostril @ [...] mouth every day Unknown Vitamin D (Ergocalciferol) 22055Uddw Capsules Q 2 WKS Unknown Furosemide 20mg [...] CPT Code Status Date Vaccine Lot # [id number] Given 12/29/2015 Influenza Virus Split 3 Yrs And Above For Intramuscular Use Q2036 Given 01/04/2012 Influenza Vaccine 3 Years Of Age Or Older (Flulaval) 85836 Given 01/17/2010 Influenza Virus Split 3 Yrs And Above For Intramuscular Use Vital Signs Date Vital Result Comment 01/30/2021 8:44am BP Systolic 102 mmHg BP Diastolic 62 mmHg Heart Rate 53 /min O2 % BldC Oximetry 97 % Height 72 inches 6'0" Weight 204.00 lb BMI (Body Mass Index) 27.7 kg/m2 [place] Body Weight 178 lb Weight 92.534 kg BSA (Body Surface Area) 2.15 m2 05/07/2019 12:54pm BP Systolic 126 mmHg BP Diastolic 80 mmHg Heart Rate 80 /min O2 % BldC Oximetry 97 % Room Air Height 72 inches 6'0" Weight 237.00 lb BMI (Body Mass Index) 32.1 kg/m2 [place] Body Weight 178 lb Weight 107.503 kg [...] L Fev6-%Pred-Pre 92 L Fev6-LLN 3.13 L Txl3htd-Mroi 72 % Rzq6bzl-Fxg 82 % Lut2uef-%Pred-Pre 114 % Vza6exx-QCH 62 % Tdc0lgz-Rehj 94 % Mtl5lyl-Nbm 100 % Exi4hsm-%Pred-Pre 106 % FEFMax-Pred 7.69 L/E/sec FEFMax-Pre 9.19 L/E/sec FEFMax-%Pred-Pre 119 L/E/sec FEFMax-LLN 5.23 L/E/sec Brz6828-Hupx 2.16 L/E/sec Ahr5349-Zye 3.02 L/E/sec Guy8813-%Pred-Pre 139 L/E/sec Ybu2870-MCD 0.47 L/E/sec ExpTime-Pre 7.49 sec Qtq7suo7-Iuak 76 % Jbg5jjr3-Zzi 82 % Obx8ake2-%Pred-Pre 107 % Bcd7dqb4-EAG 67 % Procedures Date Code Description Status 01/31/2021 34240 Diffusing Capacity Completed 01/31/2021 54411 Plethysmography Determination Grace ng Volumes & Per Airway Resist Completed 01/31/2021 13119 Bronchospasm Evaluation Complete d 01/30/2021 22012 Office/Outpatient Established Mo d MDM 30-39 Min Completed 01/30/2021 81574 Spirometry Completed Medical Devices Description No Information [...] 10:00 am - Jesus Root MD at [facility] 01/30/2021 - Jesus Root MD* R05.9 [...] Root M.D. PULM EMPHYSEMA, ESTEVEZ Closed 01/04 [facility] [address] [place], [place] [address] [phone]
--- OUTSIDE RECORDS SUMMARY | 2021-02-07 08:07 | CCD | Continuity of Care Document ---
Author Author Bogdan CHEATHAM P.A. Organization Unknown Address [address] [place] [address] [place] [address] Phone [phone] Care Team Providers Care Dinkey Press Operator Name Role Phone ChemoYuly AUTM [phone] Problems Description No Information Available Social History [...] SIG Qnty Indications Ordering Provide r Date Prednisone 10mg Tablets take 4 tabs by mouth days 1-3, take 3 tabs by mouth days 4-6, take 2 tabs by mouth days 7-9, take 1 tab by mouth days 10-12 30tabs Lakshmi harkins JR., M.D. 01/07/2021 Benzonatate 200mg Capsules 1 capsule by mouth three times daily as needed for dry cough 20caps Candie42 Arnaud Arreaga JR., M.D. 01/07/2021 Amoxicillin/Clavulanate Potassium 875-125mg Tablets 1 tab by mouth twice a day for 7 days 14tabs Lakshmi Arreaga JR., M.D. 01/07/2021 Loratadine 10mg Tablets 1 by mouth every day 30tabs Arnaud Arreaga JR., M.D. Pantoprazole Sodium Unknown Vitamin D 50mcg (2000 Ut) Capsules Unknown B12 Fast Dissolve 5000mcg Tablets Dispers Unknown Primidone 50mg Tablets Unknown Singulair 10mg Tablets 1 tab by mouth qdaily Unknown Fluticasone Propionate Unknown Astelin Unknown Gabapentin Unknown Allopurinol Unknown Crestor Unknown Aspirin c Unknown Plavix Unknown History Medications Ciprodex 0.3-0.1% Suspension 4 [...] Available Procedures Date Code Description Status 01/07/2021 14706 Office/Outpatient Established Mo d MDM 30-39 Min Completed 10/24/2020 66309 Office/Outpatient Established Lo w MDM 20-29 Min Completed 10/20/2020 96739 Office/Outpatient Established Lo w MDM 20-29 Min Completed Medical Devices Description No Information Available Encounters Type Date Location Provider Dx Diagnosis Office Visit 01/07/2021 8:00a Main Office Valente M Dennis, P.A. J4 2 Unspecified chronic bronchitis R05.1 Acute cough Z20.828 Contact w and exposure to ot h viral communicable diseases Office Visit 10/24/2020 2:50p Main Office Valente Cheatham, P.A. H6 0.91 Unspecified otitis externa, right ear Office Visit 10/20/2020 8:00a Main Office Valente Cheatham, P.A. H6 0.91 Unspecified otitis externa, right ear Assessments Date Code Description Provider 01/07/2021 J42 Unspecified chronic bronchitis J lew Cheatham, P.A. 01/07/2021 R05.1 Acute cough Valente Eason e, P.A. 01/07/2021 Z20.828 Contact with and (corrales spected) exposure to other viral communicable diseases Valente Cheatham, P.A. 10/24/2020 H60.91 Unspecified otitis externa, righ t ear Valente Cheatham, P.A. 10/20/2020 H60.91 Unspecified otitis externa, righ t ear Valente Cheatham, P.A. Plan of Treatment No Information Available Functional Status Description No Information Available Mental Status Description No Information Available Referrals Description No Information Available
--- OUTSIDE RECORDS SUMMARY | 2021-02-07 08:07 | CCD ---
Author Author [facility] Organization [facility] Address Unknown Phone Unavailable Care Team Providers Care Application Development Liaison Name Role Phone Nicolás Crawford Unavailable PROBLEMS Type Condition ICD9-CM Code YBW56-AC Code Onset Dates Condition S tatus W/U Status Risk SNOMED Code Notes Problem Vitamin d deficiency 268.9 Active confirmed 64433365 Problem Gout 274.9 Active confirmed 74106029 Problem Increasing prostate specific antigen level R97.20 Active confirmed 883715977 Problem Mixed hyperlipidemia 272.2 Active confirmed 397460752 Problem Memory changes R41.3 Active confirmed 79899 7006 Problem Vitamin D deficiency E55.9 Active confirmed 62061203 Problem Gastroesophageal reflux disease without esophagitis K21.9 Active confirmed 697015868 Problem Coronary artery disease invo [place]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 I25.10 Active confirmed 284702 898995667 Problem Essential tremor G25.0 Active confirmed 609 876824 Problem Abdominal aortic aneurysm (AAA) without rupture I7 1.4 Active confirmed 86756290 Problem Anemia, chronic disease D63.8 Active confirmed 516216242 Problem Constipation, unspecified constipation type K59.00 Active confirmed 49105475 Problem B12 deficiency E53.8 Active confirmed 46585 4004 Problem Urinary retention R33.9 Active confirmed 26 2948653 Problem Erectile dysfunction, unspecified erectile dysfunction typ e N52.9 Active confirmed 934565922 Problem Essential hypertension 401.9 Active confirmed 21299195 Problem Smoker F17.200 Active confirmed 06734611 Problem Enlarged thyroid E04.9 Active confirmed 371 6002 Problem Pure hypercholesterolemia E78.00 Active confirmed 997343866 Problem Pulmonary emphysema, unspecified emphysema type J4 3.9 Active confirmed 23132991 ALLERGIES Allergen (clinical drug ingredient) Drug/Non Drug Allergy do cumented on EMR Reaction Allergy Type Onset Date Status Mold, Dust sneezing Non Drug Allergy Active ENCOUNTERS from 1941 to 2020-11-22 Encounter Location Date Provider Diagnosis [facility] [address] [phone] [place] [address] Nov, 2020 Nicolás Crawford Urinary retention R33.9 IMMUNIZATIONS Vaccine Route Administration Date Status Vitamin B-12 1000mcg/1mL Cyanocobalamin IM Intramuscular Apr 17, 2018 Administered Influenza 18 yrs & older Flublok IM Intramuscular Jan 15, 2018 Administered COVID-19 dose #1 given elsewhere Unspecified Unknown Mar 29, 2020 Administered COVID-19 dose #1 given elsewhere Unspecified Unknown Mar 08, 2020 Administered Vitamin B-12 1000mcg/1mL Cyanocobalamin IM Intramuscular Apr 02, 2018 Administered Vitamin B-12 1000mcg/1mL Cyanocobalamin IM Intramuscular Mar 27, 2018 Administered Vitamin B-12 1000mcg/1mL Cyanocobalamin IM Intramuscular Apr 10, 2018 Administered Zoster 0.65mL Zostavax Unknown Mar 22, 2014 Administe red Influenza 18 yrs & older Flublok IM Intramuscular Jan 16, 2019 Administered Pneumococcal Adult 0.5mL Pneumovax 23 Unknown [...] Notes Total Score: 2 Interpretation: Alcohol Education Roman Catholic: Question Answer Notes Roman Catholic 13 Yazdanism No mosque beliefs that would impact health care. Sexual [...] FOR REFERRAL No Information VITAL SIGNS Weight 195 lbs Nov, Weight-kg 88.45 kg Nov, Height 70 in Nov, BMI 27.98 kg/m2 Nov, Heart Rate 85 /min Nov, Respiratory Rate 18 /min Nov, Temperature 96.2 degrees Fahrenheit Nov, Oximetry 97% Nov, Blood pressure systolic 122 mm Hg Nov, Blood pressure diastolic 64 mm Hg Nov, MEDICATIONS Medication SIG (Take, Route, Frequency, Duration) [...] a day for 90 days 16 S , 2020 Active Drisdol 96473 UNIT 1 capsule Orally Monthy for 90 [...] Information RESULTS No Results REASON FOR VISIT er fu retention MEDICAL (GENERAL) HISTORY Type Description Date Medical History CAD s/p DC - Dr. 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 Will leave Aguayo catheter in for 2 weeks and have patient return for voiding trial. Flomax started, ordered for the patient today. PLAN OF TREATMENT Medication Medication Name Sig Start Date Stop Date Flomax 0.4 MG 1 capsule Orally Once a day for 90 days Nov, Treatment Notes Assessment Notes Clinical Notes Urinary retention Patient with new ons et urinary retention obstructive symptoms were not that severe prior to retention episode. Will leave Aguayo catheter in for 2 weeks and have patient return for voiding trial. Flomax started, ordered for the patient today. Next Appt Details 2 Weeks Reason:voiding trial Provider Name:Bal Persaud, 7 08:00:00 AM, [address], , [place], [address], Provider Name:Yuly Mclain, 2020-12 03:15:00 PM, [address], , [place], [address], Follow Up:2 Weeksvoiding trial Insurance Providers Payer Name Payer Address Payer Phone Insured Name Patient Relati onship to Insured Coverage Start Date Coverage End Date BCBS [place] PPO [phone] [facility] [employer] [facility] [place] [id number] JUAN HELTON MEDICARE Part A and B [address] [place] [phone] JUAN HELTON
--- OUTSIDE RECORDS SUMMARY | 2021-02-07 08:07 | CCD ---
Author Author [facility] Organization [facility] Address Unknown Phone Unavailable Care Team Providers Care Home Health Nurse Name Role Phone Yuly Mclain Unavailable PROBLEMS Type Condition ICD9-CM Code [id number] Code Onset Dates Condition S tatus W/U Status Risk SNOMED Code Notes Problem Mixed hyperlipidemia 272.2 Active confirmed 512392387 Problem Vitamin d deficiency 268.9 Active confirmed 42192791 Problem Vitamin D deficiency E55.9 Active confirmed 53949166 Problem Increasing prostate specific antigen level R97.20 Active confirmed 278561782 Problem Coronary artery disease invo lving [place] coronary artery of [place] heart without angina pectoris I25.10 Active confirmed 662299 943727447 Problem Memory changes R41.3 Active confirmed 14588 7006 Problem Erectile dysfunction, unspecified erectile dysfunction typ e N52.9 Active confirmed 489685781 Problem Gastroesophageal reflux disease without esophagitis K21.9 Active confirmed 461626228 Problem Abdominal aortic aneurysm (AAA) without rupture I7 1.4 Active confirmed 34787155 Problem Anemia, chronic disease D63.8 Active confirmed 455904645 Problem Smoker F17.200 Active confirmed 51960282 Problem Constipation, unspecified constipation type K59.00 Active confirmed 67461859 Problem Essential tremor G25.0 Active confirmed 609 171466 Problem Essential hypertension 401.9 Active confirmed 84445794 Problem Urinary retention R33.9 Active confirmed 26 3428814 Problem B12 deficiency E53.8 Active confirmed 32321 4004 Problem Gout 274.9 Active confirmed 37671406 Problem Enlarged thyroid E04.9 Active confirmed 371 6002 Problem Pure hypercholesterolemia E78.00 Active confirmed 625562311 Problem Pulmonary emphysema, unspecified emphysema type J4 3.9 Active confirmed 47116954 Problem Enlarged prostate N40.0 Active confirmed 24 4749149 ALLERGIES Allergen (clinical drug ingredient) Drug/Non Drug Allergy do cumented on EMR Reaction Allergy Type Onset Date Status Mold, Dust sneezing Non Drug Allergy Active ENCOUNTERS from 1941 to 2020-12-29 Encounter Location Date Provider Diagnosis [facility] [address] [place] [phone] Dec, Yuly Wetterhahn Anemia, unspecified type D64.9 ; Chronic constipation K59.09 ; Enlarged prostate N40.0 ; Pulmonary emphysema, unspecified emphysema type J43.9 and Encounter for immunization Z23 IMMUNIZATIONS Vaccine Route Administration Date Status Influenza [...] Cyanocobalamin IM Intramuscular Mar 27, 2018 Administered Influenza 18 yrs & older Flublok IM Intramuscular Dec 22, 2020 Administered Zoster 0.65mL Zostavax Unknown Mar 22, 2014 Administe red COVID-19 dose #1 given elsewhere Unspecified Unknown Mar 08, 2020 Administered Pneumococcal Adult 0.5mL Pneumovax 23 Unknown Mar 22 15 Administered COVID-19 dose #1 given elsewhere Unspecified Unknown Mar 29, 2020 Administered Pneumococcal 0.5mL Prevnar 13 Unknown Mar 24, 2015 Ad ministered SOCIAL HISTORY Tobacco Use: Social History Observation Description Date Details (start date - stop date) Former Smoker Sex Assigned At : Social History Observation Description Sex Assigned At Unknown Education: Question Answer Notes Level of Education: College Audit Question Answer Notes Total Score: 2 Interpretation: Alcohol Education Evangelical: Question Answer Notes Evangelical 13 Yarsani No mandaeism beliefs that would impact health care. Sexual [...] FOR REFERRAL No Information VITAL SIGNS Weight 199.8 lbs Dec, Height 70 in Dec, BMI 28.67 kg/m2 Dec, Heart Rate 83 /min Dec, Respiratory Rate 18 /min Dec, Temperature 97.2 degrees Fahrenheit Dec, Oximetry 96 Dec, Blood pressure systolic 140 mm Hg Dec, Blood pressure diastolic 72 mm Hg Dec, MEDICATIONS Medication SIG (Take, Route, Frequency, Duration) Notes Start Da te End Date Status Astelin 137 MCG/SPRAY 1 puff in each nostril Nasally Twice a day Active Furosemide 20 MG 1 tablet Orally PRN Active Vitamin D 12.5 MCG/0.25ML 0.25 ml Orally Once a day for 30 day(s) Active Losartan Potassium 50 MG 1 tablet Orally Once a day for 30 day(s ) Sep, Active Pantoprazole Sodium 40 mg 1 tab Orally Once a day Active Nitroglycerin 0.4 MG 1 tab Sublingual every 5 min utes x 3 as needed for chest pain for 8 Active Tadalafil 2.5 mg TAKE 1 TABLET EVERY OTHER DAY Active Clopidogrel Bisulfate 75 MG 1 tablet Orally Once a day for 30 day(s) Active Drisdol 85865 UNIT 1 capsule Orally Monthy for 90 days Active Ranitidine HCl 150 MG 1 tablet at bedtime Orally Once a day for 30 day(s) Oct, Active Montelukast Sodium 10 MG 1 tablet Orally Once a day for 30 day(s) Active Fluticasone Propionate (Inhal) 50 MCG/BLIST 1 puff Inhalation Twice a day Active Cialis 2.5 MG 1 tablet Orally QOD for 90 days Active Ventolin HFA 108 (90 Base) MCG/ACT 1 puff as needed In halation every 4 hrs as needed for SOB for 30 days Sep, Activ e Allopurinol 100 mg 1 tablet Orally Once a day Active Rosuvastatin Calcium 40 MG 1 tablet Orally Once a day for 90 day(s) Active Primidone 50 MG 1 tablet orally Daily for 90 days Active Fluorouracil 5 % 1 application Externally bid for 2 weeks for 30 Days Nov, Active Aspirin 81 MG 1 tablet Orally Once a day Active Vitamin B12 1000 MCG 1 tablet Orally Once a day 14 Apr, Active Gabapentin 600 mg 2 tablet Orally Twice a day Active Incruse Ellipta 62.5 MCG/INH 1 puff Inhalation Once a day Sep, Active Flomax 0.4 MG 1 capsule Orally Once a day for 90 days 16 S 2020 Active Plavix 75 MG 1 tablet Orally Once a day Active PROCEDURES from 1941 to 2020-12-29 Procedure Date Ordered Result Body Site Imm: Flublok Quadrivalent 18 years & older 0.5mL IM Influenza 22-12-20 N/A RESULTS No Results REASON FOR VISIT 3 month MEDICAL (GENERAL) HISTORY Type Description Date Medical History CAD s/p [place] - Dr. 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 - [facility] Medical History Urinary retention Medical History Gross hematuria Surgical History APPENDECTOMY Surgical History CORONARY ARTERY STENTING 07/2005 Surgical History CORONARY ARTERY BYPASS GRAFT 09/2010 Surgical History ASCENDING AORTIC ANEURISM RE PAIR - Developed endoleak FRANCK requiring ligation 04/17/2017,09/2018 Surgical History Colonoscopy - Diverticulosis 2012 Surgical History Cataracts surgery May 2020 Hospitalization History KIDNEY STONES X2 Hospitalization History HEMATOMA 12/2016 Goals Section No Information Health Concerns No Information MEDICAL EQUIPMENT No Information MENTAL STATUS No Information FUNCTIONAL STATUS No Information ASSESSMENTS Encounter Date Diagnosis Assessment Notes Treatment Notes Treatm ent Clinical Notes Dec, Anemia, unspecified type (ICD-10 - D64.9) presumed secondary to hematuria, but willneed to monitor. Avoid iron due to constipation issues. Dec, Chronic constipation (ICD-10 - K59.09) Continue bowel care. Consider GI evlal if anemia persists Dec, Enlarged prostate (ICD-10 - N40.0) Per Urology Dec, Pulmonary emphysema, unspecified emphysema type (ICD-10 - J43.9) Not much improvement in Dyspnea which he describes as mild with exertion. He will consider pulm referral once Prostate/Urinary retention issues have been addressed Dec, Encounter for immunization (ICD-10 - Z23) PLAN OF TREATMENT Medication Medication Name Sig Start Date Stop Date Fluticasone Propionate (Inhal) 50 MCG/BLIST 1 puff Inhalation Tw ice a day Incruse Ellipta 62.5 MCG/INH 1 puff Inhalation Once a day Sep Treatment Notes Assessment Notes Clinical Notes Anemia, unspecified type presumed second tunde to hematuria, but willneed to monitor. Avoid iron due to constipation issues. Chronic constipation Continue bowel care . Consider GI evlal if anemia persists Enlarged prostate Per Urology Pulmonary emphysema, unspecified emphysema type Not much improvement in Dyspnea which he describes as mild with exertion. He will consider pulm referral once Prostate/Urinary retention issues have been addressed Future Test Test Name Order Date FERRITIN 20210308 IRON (FE) [id number] TOTAL IRON BINDING CAPACIT [id number] Next Appt Details 3 Months Reason: Insurance Providers Payer Name Payer Address Payer Phone Insured Name Patient Relati onship to Insured Coverage Start Date Coverage End Date BCBS [place] [employer] PPO [phone] [facility] [place] [id number] JUAN HELTON self MEDICARE Part A and [address] [place] [phone] JUAN HELTON self
--- OUTSIDE RECORDS SUMMARY | 2021-02-07 08:07 | CCD ---
Author Author [facility] Organization [facility] Address Unknown Phone Unavailable Care Team Providers Care Barista Name Role Phone Bal Persaud Unavailable PROBLEMS Type Condition ICD9-CM Code SME57-SS Code Onset Dates Condition S tatus W/U Status Risk SNOMED Code Notes Problem Vitamin d deficiency 268.9 Active confirmed 71230615 Problem Gout 274.9 Active confirmed 23098539 Problem Increasing prostate specific antigen level R97.20 Active confirmed 868487223 Problem Mixed hyperlipidemia 272.2 Active confirmed 057504718 Problem Memory changes R41.3 Active confirmed 35664 7006 Problem Vitamin D deficiency E55.9 Active confirmed 27472303 Problem Gastroesophageal reflux disease without esophagitis K21.9 Active confirmed 752727867 Problem Coronary artery disease invo lving [place] coronary artery of [place] heart without angina pectoris I25.10 Active confirmed 426378 209977186 Problem Essential tremor G25.0 Active confirmed 609 779413 Problem Abdominal aortic aneurysm (AAA) without rupture I7 1.4 Active confirmed 33048260 Problem Anemia, chronic disease D63.8 Active confirmed 183862031 Problem Constipation, unspecified constipation type K59.00 Active confirmed 64641825 Problem B12 deficiency E53.8 Active confirmed 84619 4004 Problem Urinary retention R33.9 Active confirmed 26 9969363 Problem Erectile dysfunction, unspecified erectile dysfunction typ e N52.9 Active confirmed 445804934 Problem Essential hypertension 401.9 Active confirmed 13704434 Problem Smoker F17.200 Active confirmed 05279635 Problem Enlarged thyroid E04.9 Active confirmed 371 6002 Problem Pure hypercholesterolemia E78.00 Active confirmed 307597292 Problem Pulmonary emphysema, unspecified emphysema type J4 3.9 Active confirmed 39399099 ALLERGIES Allergen (clinical drug ingredient) Drug/Non Drug Allergy do cumented on EMR Reaction Allergy Type Onset Date Status Mold, Dust sneezing Non Drug Allergy Active ENCOUNTERS from 1941 to 2020-12-16 Encounter Location Date Provider Diagnosis [facility] Urology [phone] [place] [address] Dec, Bal Rangeloskarcam IMMUNIZATIONS Vaccine Route Administration Date Status Influenza [...] Notes Total Score: 2 Interpretation: Alcohol Education Baptist: Question Answer Notes Baptist 13 Anglican No mandaeism beliefs that would impact health [...] 1 TABLET EVERY OTHER DAY Active Drisdol 00464 UNIT 1 capsule Orally Monthy for 90 [...] Information RESULTS No Results REASON FOR VISIT 01/09/2021 appt MEDICAL (GENERAL) HISTORY Type Description Date Medical History CAD s/p [place] - Dr. 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 - [facility] Medical History Urinary retention Medical History [...] TREATMENT Next Appt Details Provider Name:Yuly Mclain, 2020-12 03:15:00 PM[facility] [address] [facility] [place], [address], Provider Name:Bal Persaud, 11-0 8 08:45:00 AM, [address], , [place], [address], Insurance Providers Payer Name Payer Address Payer Phone Insured Name Patient Relati onship to Insured Coverage Start Date Coverage End Date MEDICARE Part A and B [address] [facility] [phone] JUAN HELTON self BCBS [place] [facility] PPO [phone] [facility] [place] [id number] JUAN HELTON self
--- OUTSIDE RECORDS SUMMARY | 2021-02-07 08:08 | CCD ---
Author Author [facility] Organization [facility] Address Unknown Phone Unavailable Care Team Providers Care Maintenance Person Name Role Phone Danie Wheatley Unavailable PROBLEMS Type Condition ICD9-CM Code HTI46-TX Code Onset Dates Condition S tatus W/U Status Risk SNOMED Code Notes Problem Gout 274.9 Active confirmed 24492155 Problem Essential hypertension 401.9 Active confirmed 61674875 Problem Mixed hyperlipidemia 272.2 Active confirmed 340270548 Problem Vitamin d deficiency 268.9 Active confirmed 32044660 Problem Vitamin D deficiency E55.9 Active confirmed 00790064 Problem Increasing prostate specific antigen level R97.20 Active confirmed 432840799 Problem Memory changes R41.3 Active confirmed 60772 7006 Problem Gastroesophageal reflux disease without esophagitis K21.9 Active confirmed 646908297 Problem B12 deficiency E53.8 Active confirmed 88015 4004 Problem Essential tremor G25.0 Active confirmed 609 925427 Problem Abdominal aortic aneurysm (AAA) without rupture I7 1.4 Active confirmed 07521210 Problem Pulmonary emphysema, unspecified emphysema type J4 3.9 Active confirmed 34722676 Problem Erectile dysfunction, unspecified erectile dysfunction typ e N52.9 Active confirmed 264104126 Problem Constipation, unspecified constipation type K59.00 Active confirmed 52728918 Problem Coronary artery disease invo lving [place] coronary artery of [place] heart without angina pectoris I25.10 Active confirmed 387092 721199560 Problem Anemia, chronic disease D63.8 Active confirmed 747715993 Problem Smoker F17.200 Active confirmed 70003718 Problem Enlarged thyroid E04.9 Active confirmed 371 6002 Problem Pure hypercholesterolemia E78.00 Active confirmed 751509674 ALLERGIES Allergen (clinical drug ingredient) Drug/Non Drug Allergy do cumented on EMR Reaction Allergy Type Onset Date Status Mold, Dust sneezing Non Drug Allergy Active ENCOUNTERS from 1941 to 2020-11-16 Encounter Location Date Provider Diagnosis [facility] Dermatology [address] [facility] [phone] [place] [address] Nov, 2020 Danie Miletta Scar L90.5 ; Healing wound T 14.90XD ; Actinic keratosis L57.0 and 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 Sexual [...] FOR REFERRAL No Information VITAL SIGNS Weight 197 lbs Nov, Weight-kg 89.36 kg Nov, Height 70 in Nov, BMI 28.26 kg/m2 Nov, MEDICATIONS Medication SIG (Take, Route, Frequency, Duration) Notes Start Da te End Date Status Allopurinol 100 mg 1 tablet Orally Once a day Active Drisdol 32442 UNIT 1 capsule Orally Monthy for 90 days Active Furosemide 20 MG 1 tablet Orally PRN Active Tadalafil 2.5 mg TAKE 1 TABLET EVERY OTHER DAY Active Fluticasone Propionate (Inhal) 50 MCG/BLIST 1 puff Inhalation Twice a day Active Plavix 75 MG 1 tablet Orally Once a day Active Fluorouracil 5 % 1 application Externally bid for 2 weeks for 30 Days Nov, Active Cialis 2.5 MG 1 tablet Orally QOD for 90 days Active Clopidogrel Bisulfate 75 MG 1 tablet Orally Once a day for 30 day(s) Active Vitamin B12 1000 MCG 1 tablet Orally Once a day Apr, Active Losartan Potassium 50 MG 1 tablet Orally Once a day for 30 day(s ) Sep, Active Ventolin HFA 108 (90 Base) MCG/ACT 1 puff as needed In halation every 4 hrs as needed for SOB for 30 days Sep, Activ e Aspirin 81 MG 1 tablet Orally Once a day Active Vitamin D 12.5 MCG/0.25ML 0.25 ml Orally Once a day for 30 day(s) Active Rosuvastatin Calcium 40 MG 1 tablet Orally Once a day for 90 day(s) Active Montelukast Sodium 10 MG 1 tablet Orally Once a day for 30 day(s) Active Primidone 50 MG 1 tablet orally Daily for 90 days Active Incruse Ellipta 62.5 MCG/INH 1 puff Inhalation Once a day for 30 days Sep, Active Crestor 40 MG 1 tablet Orally Once a day for 30 day(s) Active Pantoprazole Sodium 40 mg 1 tab Orally Once a day Active Astelin 137 MCG/SPRAY 1 puff in each nostril Nasally Twice a day Active Gabapentin 600 mg 2 tablet Orally Twice a day Active Nitroglycerin 0.4 MG 1 tab Sublingual every 5 min utes x 3 as needed for chest pain for 8 Active Ranitidine HCl 150 MG 1 tablet at bedtime Orally Once a day for 30 day(s) Oct, Active PROCEDURES No Information RESULTS No Results REASON FOR VISIT actinic keratoses, scalp , biopsy review, scalp , scar, nose , scar, scalp MEDICAL (GENERAL) HISTORY Type Description Date Medical History CAD s/p [place] - Dr. 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 [facility] Surgical History APPENDECTOMY Surgical History CORONARY [...] Treatment Notes Treatm ent Clinical Notes Nov, Scar (ICD-10 - L90.5) healing well wihtout complication Nov, Healing wound (ICD-10 - T14.90XD) Nov, Actinic keratosis (ICD-10 - L57.0) 5-FU as above to reduce field cancerization on scalp. counseling performed and expectations reviewed. 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 offered re-biopsy of left scalp today but deferred by patient. he would prefer to call for signs of recurrence for excisional bx. PLAN OF TREATMENT Treatment Notes Assessment Notes Clinical Notes Scar healing well wihtout complication Actinic keratosis 5-FU as above to red uce field cancerization on scalp. counseling performed and expectations reviewed. Neoplasm of uncertain behavior no eviden ce of recurrence today. offered re- biopsy of left scalp today but deferred by patient. he would prefer to call for signs of recurrence for excisional bx. Next Appt Details Provider Name:Nicolás Crawford, 10:00:00 AM, [address], , [place], [address], Provider Name:Yuly Mclain, 2020-12 03:15:00 PM, [address] , , [place], [address], Insurance Providers Payer Name Payer Address Payer Phone Insured Name Patient Relati onship to Insured Coverage Start Date Coverage End Date BCBS JIMI LINARES PPO [phone] [facility] [employer] [facility] [place] [address] JUAN HELTON MEDICARE Part A and B [facility] [address] [place] [phone] JUAN HELTON
--- OUTSIDE RECORDS SUMMARY | 2021-02-07 08:08 | CCD | Summary of Care ---
Author Author [facility] Address Unknown Phone Unavailable Care Team Providers Care Show Operations Supervisor Name Role Phone Randall Mclain MD PCP Reason for Visit * Reason Comments Follow-up Pt stated he was in the ER at [facility] for sob, diagnosed with ephesyma Encounter Details Care Team Description Date Type Department Xiomara Gonzalez, FIELD [employer]ING SUPERVISOR [address] [place] [address] Coronary artery disease involving te-moak coronary artery of te[place]moak heart without angina pectoris (Primary Dx); History of coronary artery bypass graft; Myocardial infarction of inferior wall; Essential hypertension; Mixed hyperlipidemia; Cerebrovascular accident (CVA), unspecified mechanism; Abdominal aortic aneurysm (AAA) without rupture 11/22/2020 Office Visit [facility] [address] [facility] [place] [address] Allergies No Known Active Allergiesdocumented as of this encounter (statuses as of 11/22/2020) Medications End Date Status Medication Sig Dispensed Refills Start Date Active Allopurinol 100 MG Oral Take 100 mg 0 Tablet (ZYLOPRIM) by mouth daily Active Rosuvastatin Calcium 40 Take 40 mg by 0 MG Oral Tablet (CRESTOR) mouth daily Active Furosemide 20 MG Oral Take 20 mg by 0 Tablet (LASIX) mouth as needed Active Nitroglycerin 0.[address] 0.4 mg 0 Sublingual Tablet under the Sublingual (NITROSTAT) tongue every 5 (five) minutes as needed for Chest pain Active Pantoprazole Sodium 40 MG Take 40 mg by 0 Oral Tablet Delayed mouth daily Release (PROTONIX) Active Gabapentin 600 MG Oral Take 1,200 mg 0 Tablet (NEURONTIN) by mouth Two Times Daily Active Vitamin D Take 50,000 0 (Ergocalciferol) 1.25 MG Units by (68811 UT) Oral Capsule mouth every (ERGOCALCIFEROL) 14 (fourteen) days Active Azelastine HCl 137 by Nasal 0 MCG/SPRAY Nasal Solution route as needed Active Tadalafil 2.5 MG Oral Take by mouth 0 Tablet (CIALIS) as needed Active Fluticasone Propionate 50 1 spray by 0 MCG/ACT Nasal Suspension Nasal route (FLONASE) daily Active Aspirin 81 MG Oral Tablet Take 81 mg by 0 mouth daily Active Montelukast Sodium 10 MG Take 10 mg by 0 Oral Tablet (SINGULAIR) mouth nightly Active Primidone 50 MG Oral Take 50 mg by 0 Tablet (MYSOLINE) mouth daily Active Vitamin B-12 500 MCG Oral Take 500 mcg 0 Tablet (CYANOCOBALAMIN) by mouth daily Active Clopidogrel Bisulfate 75 TAKE 1 TABLET 90 tablet 3 MG Oral Tablet (PLAVIX) DAILY 1 Active Albuterol Sulfate HFA 108 INHALE ONE 0 09/02 (90 Base) MCG/ACT PUFF BY MOUTH 1 Inhalation Aerosol EVERY 4 HOURS Solution (PROVENTIL HFA) NEEDED FOR SHORTNESS OF BREATH Active Losartan Potassium 50 MG Take 50 mg by 0 10/31 Oral Tablet (COZAAR) mouth daily 1 Active Tamsulosin HCl 0.4 MG 0 Oral Capsule (FLOMAX) 1 documented as of this encounter (statuses as of 11/22/2020) Active Problems Problem Noted Date History of coronary artery bypass graft 04/15/2019 Myocardial infarction of inferior wall 07/02/2005 Nephrolithiasis Hypertension Hyperlipidemia Coronary artery disease CVA (cerebral vascular accident) AAA (abdominal aortic aneurysm) Overview: Formatting of this note might be differ ent from the original. 5 X 4.7 cm Dec 2016 [place] Identi fication, ENDOGRAFT April 2017 PHOEBE Camarena AAA, Dr Dumont [place] September 2018 Endograft Repair for Leak Sleep apnea Overview: Formatting of this note might be differ ent from the original. CPAP for many years-intolerance recentl y with skin irritation -Mar 2019 documented as of this encounter (statuses as of 11/22/2020) Social History Date Tobacco Use Types Packs/Day Years Used Quit: 2006 Current Some Day Smoker Cigarettes, Pipe Smokeless Tobacco: Never Used Comments: occasional cigar Comments Alcohol Use Standard Drinks/Week occasional Yes 0 (1 standard drink = 0.6 o z pure alcohol) Sex Assigned at Date Recorded Not on file Date Recorded COVID-19 Exposure Response 11/22/2020 12:36 PM EDT In the last month, have you been in contact with No / Unsure someone who was confirmed or suspected to have Coronavirus / COVID-19? documented as of this encounter Last Filed Vital Signs Reading Time Taken Comments Vital Sign 132/62 11/22/2020 1:34 PM EDT Blood Pressure 59 11/22/2020 12:51 PM EDT Pulse - - Temperature - - Respiratory Rate - - Oxygen Saturation - - Inhaled Oxygen Concentration 89.8 kg (198 lb) 11/22/2020 12:51 PM EDT Weight 177.8 cm (5' 10") 11/22/2020 12:51 PM EDT Height 28.41 11/22/2020 12:51 PM EDT Body Mass Index documented in this encounter Patient Instructions * Patient Instructions* Xiomara Gonzalez NP - 11/22/2020 1:00 PM EDT Continue on current medications Blood work 1-2 weeks prior to next ov in May 2021 documented in this encounter Progress Notes * Xiomara Gonzalez NP - 11/22/2020 1:00 PM EDT Images from the original note were not included. PROGRESS NOTE CHIEF COMPLAINT: Chief Complaint Patient presents with Follow-up Pt stated he was in the ER at [facility] for sob, diagnosed with ephesyma HISTORY: Mr. Arreaga is a 80 y.o. male, patient of Dr. Noe Greer, with a hi story of known underlying cardiovascular disease status post previous bypass gra fting in September 2010 with hypertension, hyperlipidemia, h/o sleep apnea (no longer on CPAP with weight loss of 40 lbs in the last year) and peripheral vascular di sease who does present for clinical care. Bogdan presents to the office today f or routine follow up from a cardiac standpoint. Since he was last seen here he reports he was at [facility] on 2 oc casions for chronic bronchitis and pneumonia. He did get better with steroids, n ebs, and Abx. I di not have these records available for review. Patient denies any chest pain/pressures, neck, jaw or arm pain. He reports short ness of breath with stairs/inclines or walking longer distances, no PND/orthopne a, palpitations, dizziness/lightheadedness, near syncope or syncope, or lower ex tremity edema. He had some difficulty urinating about a week ago and had a tran catheter place d by his urologist at [facility]. He is now on Flomax. He believes he is hav ing a urodynamic study in the next few weeks. ROS: See above in HPI. All other systems have been reviewed and are negative. PMH / PROBLEM LIST: Past Medical History: Diagnosis Date AAA (abdominal aortic aneurysm) 5 X 4.7 cm Dec 2016 [place] Identification, ENDOGRAFT April 2017 Nikky Camarena AAA, Dr Dumont [place] September 2018 Endograft Repair for Leak Chronic low back pain Coronary artery disease 09/2010 CABG- MELENDEZ to LAD, Vein Graft to Diagonal, Vein Graft to the OM CVA (cerebral vascular accident) Diverticulitis large intestine GERD (gastroesophageal reflux disease) Gout History of coronary artery bypass graft 04/15/2019 History of echocardiogram 10/2010 VEF 55% Mild to Mod AI Mild TR and PI, NL PA Pressure 22 mmHg. History of nuclear stress test 04/2017 Limited Region of Inf Scar LVEF 56%, No Significant Ischemia, Asymptomatic Non Sustained Ventricular Arrhythmia Hyperlipidemia Hypertension Myocardial infarction of inferior wall 07/2005 Nephrolithiasis Osteoarthritis Peripheral neuropathy Rectus sheath hematoma 12/2016 SA node dysfunction 2018 Asymptomatic Bradycardia 2018 No Symptoms No Rate Limiting Med Rx Sleep apnea CPAP for many years-intolerance recently with skin irritation -Mar 2019 Patient Active Problem List Diagnosis Nephrolithiasis Hypertension Hyperlipidemia Coronary artery disease Myocardial infarction of inferior wall CVA (cerebral vascular accident) History of coronary artery bypass graft AAA (abdominal aortic aneurysm) Sleep apnea SURGICAL HISTORY: Past Surgical History: Procedure Laterality Date APPENDECTOMY CARDIAC CATHETERIZATION 09/2010 EF 65% 80-90% Stenosis LAD CORONARY ARTERY BYPASS GRAFT 09/2010 MELENDEZ to LAD, Vein Graft to Diagonal, Vein Graft to the OM MEDICATIONS/ALLERGIES: Current Outpatient Medications: Albuterol Sulfate HFA 108 (90 Base) MCG/ACT Inhalation Aerosol Solution (PROVENTIL HFA), INHALE ONE PUFF BY MOUTH EVERY 4 HOURS NEEDED FOR SHORTNESS OF BREATH, Disp: , Rfl: Allopurinol 100 MG Oral Tablet (ZYLOPRIM), Take 100 mg by mouth daily, D isp: , Rfl: Aspirin 81 MG Oral Tablet, Take 81 mg by mouth daily, Disp: , Rfl: Azelastine HCl 137 MCG/SPRAY Nasal Solution, by Nasal route as needed, D isp: , Rfl: Clopidogrel Bisulfate 75 MG Oral Tablet (PLAVIX), TAKE 1 TABLET DAILY, D isp: 90 tablet, Rfl: 3 Fluticasone Propionate 50 MCG/ACT Nasal Suspension (FLONASE), 1 spray by Nasal route daily, Disp: , Rfl: Furosemide 20 MG Oral Tablet (LASIX), Take 20 mg by mouth as needed , Di sp: , Rfl: Gabapentin 600 MG Oral Tablet (NEURONTIN), Take 1,200 mg by mouth Two Ti mes Daily, Disp: , Rfl: Losartan Potassium 50 MG Oral Tablet (COZAAR), Take 50 mg by mouth daily , Disp: , Rfl: Montelukast Sodium 10 MG Oral Tablet (SINGULAIR), Take 10 mg by mouth ni menay, Disp: , Rfl: Pantoprazole Sodium 40 MG Oral Tablet Delayed Release (PROTONIX), Take 4 0 mg by mouth daily, Disp: , Rfl: Primidone 50 MG Oral Tablet (MYSOLINE), Take 50 mg by mouth daily , Disp : , Rfl: Rosuvastatin Calcium 40 MG Oral Tablet (CRESTOR), Take 40 mg by mouth da shanda, Disp: , Rfl: Tadalafil 2.5 MG Oral Tablet (CIALIS), Take by mouth as needed, Disp: , Rfl: Tamsulosin HCl 0.4 MG Oral Capsule (FLOMAX), , Disp: , Rfl: Vitamin B-12 500 MCG Oral Tablet (CYANOCOBALAMIN), Take 500 mcg by mouth daily, Disp: , Rfl: Vitamin D (Ergocalciferol) 1.25 MG (74777 UT) Oral Capsule (ERGOCALCIFER OL), Take 50,000 Units by mouth every 14 (fourteen) days, Disp: , Rfl: Nitroglycerin 0.4 MG Sublingual Tablet Sublingual (NITROSTAT), Place 0.4 mg under the tongue every 5 (five) minutes as needed for Chest pain, Disp: , R fl: Patient's currently listed allergies are: Patient has no known allergies. FAMILY HISTORY: No family history on file. SOCIAL HISTORY: Social History Tobacco Use Smoking status: Current Some Day Smoker Types: Cigarettes, Pipe Last attempt to quit: 2006 Years since quittin.7 Smokeless tobacco: Never Used Tobacco comment: occasional cigar Vaping Use Vaping Use: Never used Substance Use Topics Alcohol use: Yes Comment: occasional Drug use: Never TOBACCO USE: Social History Tobacco Use Smoking Status Current Some Day Smoker Types: Cigarettes, Pipe Last attempt to quit: 2007 Years since quittin.7 Smokeless Tobacco Never Used Tobacco Comment occasional cigar PHYSICAL EXAM: Vitals: 11/22/20 1251 11/22/20 1334 BP: 120/64 132/62 BP Location: Left arm Right arm Patient Position: Sitting Cuff size: Adult Large Pulse: (!) 59 Weight: 89.8 kg (198 lb) Height: 1.778 m (5' 10") BMI: Body mass index is 28.41 kg/m. Wt Readings from Last 3 Encounters: 11/22/20 89.8 kg (198 lb) 05/20/20 88.9 kg (196 lb) 11/20/19 92.1 kg (203 lb) GEN: Alert and Oriented in no acute distress HEENT: Normocephalic, atraumatic. PERRLA. HEART: S1, S2 RRR, no murmurs, rubs, or gallops LUNGS: CTA bilaterally, no wheezing, rales, or rhonchi ABDOMEN: Soft, non tender, non distended with normal bowel sounds EXT: Very mild peripheral edema bilaterally. Palpable distal pulses NEUROLOGIC: Nonfocal; awake, alert and oriented SKIN: warm, dry and intact EKG: SB with APC's, LAD, LAFB. Compared to EKG of 04/16/19 APC's are now present. ECHO 03/18/13- EF 55-60%. Impaired diastolic relaxation is present. * The left atrium is mildly dilated. * Mild aortic sclerosis is present. Mild aortic insufficiency is present. * Trace to mild mitral insufficiency is present. * Trace to mild tricuspid insufficiency is present. PA systolic pressures are no rmal. VISHAL NUCLEAR STRESS TEST 07/12/20: Normal perfusion imaging and normal regional w all motion with EF 59% by gated SPECT. LABS 04/15/2020: WBC 7.4 Hgb 13.3 HCT 41.6 PLT 234 glucose 64 BUN 16 creatinine 0 .88 sodium 141 potassium 4.1 AST 14 ALT 17 total cholesterol 123 HDL 42 LDL 50 triglyceride 154 ASSESSMENT: 1. Encounter Diagnoses Name Primary? 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 CAD s/p CABG- no angina. ST from July 2020 neg for ischemia. I reviewed this t est with him. 2. HTN- BP well controlled 3. HLD- well controlled on statin tx. No myalgias. 4. H/o CVA- no recurrent neurological symptoms. 5. AAA s/p repair with endograft leak repair- follows with vascular in [place]. A care plan and follow-up was discussed with the patient and their family. The p atient was given ample opportunity to ask questions which were all addressed and agrees with the above listed plan. They have been educated to contact our office at [phone] with any questions, concerns or development of worsening sympt oms or change in condition. We discussed face to face to call me should they hav e symptoms of angina, increased shortness of breath, increased lower extremity e lynda, or severe palpitations with syncope or near-syncope. Pt expressed understa nding. Note dictated using [employer]iankong[employer] dictation software and some errors may occur in trans cription. Every effort has been made to ensure accuracy of shrimper, but e rrors may go unnoticed/uncorrected. Bogdan will return for follow up in 6 months with labs prior to RTO. Xiomara Gonzalez RN, MSN, ANP [facility] [phone] documented in this encounter Plan of Treatment Care Team Description Date Type Specialty Noe Greer MD [address] [place] [address] [phone] 05/31/2021 Office Visit Cardiology Date/Time Name Type Priority Associated Diag noses 11/22/2020 12:41 PM EDT EKG 12 lead ECG Routine Coronary artery disease involving te-[place] coronary artery of [place] heart without angina pectoris Order Schedule Name Type Priority Associated Diag noses Expected: 05/15/2021, Expires: 2 Basic Metabolic Panel Lab Routine Coronary artery disease involving [place] coronary artery of [place] heart without angina pectoris 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 Essential hypertension Mixed hyperlipidemia Cerebrovascular accident (CVA), unspecified mechanism Expected: 05/15/2021, Expires: 2 AST Lab Routine Coronary artery disease involving [place] coronary artery of [place] heart without angina pectoris 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 Essential hypertension Mixed hyperlipidemia Cerebrovascular accident (CVA), unspecified mechanism Expected: 05/15/2021, Expires: 2 ALT Lab Routine Coronary artery disease involving [place] coronary artery of [place] heart without angina pectoris 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 Essential hypertension Mixed hyperlipidemia Cerebrovascular accident (CVA), unspecified mechanism Expected: 05/15/2021, Expires: 2 CBC Lab Routine Coronary artery disease involving [place] coronary artery of te-[place] heart without angina pectoris 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 Essential hypertension Mixed hyperlipidemia Cerebrovascular accident (CVA), unspecified mechanism Expected: 05/15/2021, Expires: 2 Lipid panel Lab Routine Coronary artery disease involving te[place] coronary artery of [place] heart without angina pectoris 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 Essential hypertension Mixed hyperlipidemia Cerebrovascular accident (CVA), unspecified mechanism Health Maintenance Due Date Last Done Comments Pneumococcal Vaccine: 65+ 1947 Years (1 of 2 - PPSV23) Pneumococcal Vaccine: 1946 Pediatrics (0 to 5 Years) and At-Risk Patients (6 to 64 Years) (1 of 2 - PPSV23) DTaP,Tdap,and Td Vaccines 01/22/1947 (1 - Tdap) MMR Vaccines (1 of 1 - 04/19/2014 Standard series) Varicella Vaccines (1 of 04/19/2014 03/22/2014 2 - 2-dose childhood series) Zoster Vaccines (2 of 3) 05/17/2014 03/22/2014 Influenza Vaccine 12/02/2020 01/16/2019, 01/15/2018, 11/06/2016 COVID-19 Vaccine Completed 03/29/2020, 03/08/2020 HIB Vaccines Aged Out No longer eligible based on patient's age to complete this topic Hepatitis A Vaccines Aged Out No longer eligibl e based on patient's age to complete this topic Hepatitis B Vaccines Aged Out No longer eligibl e based on patient's age to complete this topic IPV Vaccines Aged Out No longer eligible based on patient's age to complete this topic documented as of this encounter Procedures Comments Procedure Name Priority Date/Time Associated Diag nosis EKG 12-LEAD - CMAXX 11/22/2020 REPORT 12:41 PM EDT EKG 12-LEAD Routine 11/22/2020 Coronary artery disease 12:41 PM EDT involving te-moak coronary artery of te-moak heart without angina pectoris Procedure Note - Interface, Received Via Department [employer] - 11/22/2020 12:51 PM EDT Ventricula r Rate: 59 BPM Atrial Rate: 59 BPM P-R Interval: 172 ms QRS Duration: 96 ms Q-T Interval: 454 ms QTC Calculatio n(Bazett): 449 ms P [place]: 38 degrees R [place]: -58 degrees T [place]: 59 degrees : SINUS BRADYCARDI A WITH MARKED SINUS ARRHYTHMIA : LEFT ANTERIOR FASCICULAR BLOCK : POSSIBLE ANTEROLATE RAL INFARCT (CITED ON OR BEFORE : 0) : ABNORMAL ECG : WHEN COMPARED WITH ECG OF 0 08:19, : NO SIGNIFICAN T CHANGE WAS FOUND : THIS IS A PRELIMINAR Y RESULT. documented in this encounter Results * EKG 12-LEAD - CMAXX REPORT (11/22/2020 12:41 PM EDT) Narrative Performed At This result has an attachment that is n ot available. documented in this encounter Visit Diagnoses Diagnosis Coronary artery disease involving nativ e coronary artery of te-moak heart without angina pectoris - Primary History of coronary artery bypass graft Postsurgical aortocoronary bypass statu s Myocardial infarction of inferior wall Essential hypertension Unspecified essential hypertension Mixed hyperlipidemia Cerebrovascular accident (CVA), unspeci fied mechanism Abdominal aortic aneurysm (AAA) without rupture documented in this encounter
--- OUTSIDE RECORDS SUMMARY | 2021-02-07 08:08 | CCD ---
Author Author [facility] Organization [facility] Address Unknown Phone Unavailable Care Team Providers Care Ore Sampler Name Role Phone Yuly Mclain Unavailable PROBLEMS Type Condition ICD9-CM Code ITT92-VI Code Onset Dates Condition S tatus W/U Status Risk SNOMED Code Notes Problem Gout 274.9 Active confirmed 85957962 Problem Essential hypertension 401.9 Active confirmed 50835029 Problem Mixed hyperlipidemia 272.2 Active confirmed 256068520 Problem Vitamin d deficiency 268.9 Active confirmed 01519080 Problem Vitamin D deficiency E55.9 Active confirmed 40638149 Problem Increasing prostate specific antigen level R97.20 Active confirmed 072812284 Problem Memory changes R41.3 Active confirmed 85985 7006 Problem Gastroesophageal reflux disease without esophagitis K21.9 Active confirmed 876211219 Problem B12 deficiency E53.8 Active confirmed 17699 4004 Problem Essential tremor G25.0 Active confirmed 609 420100 Problem Abdominal aortic aneurysm (AAA) without rupture I7 1.4 Active confirmed 02406734 Problem Pulmonary emphysema, unspecified emphysema type J4 3.9 Active confirmed 28771072 Problem Erectile dysfunction, unspecified erectile dysfunction typ e N52.9 Active confirmed 008246198 Problem Constipation, unspecified constipation type K59.00 Active confirmed 48956740 Problem Coronary artery disease invo lving [place] coronary artery of [place] heart without angina pectoris I25.10 Active confirmed 906250 608616119 Problem Anemia, chronic disease D63.8 Active confirmed 072534893 Problem Smoker F17.200 Active confirmed 93498343 Problem Enlarged thyroid E04.9 Active confirmed 371 6002 Problem Pure hypercholesterolemia E78.00 Active confirmed 004089637 ALLERGIES Allergen (clinical drug ingredient) Drug/Non Drug Allergy do cumented on EMR Reaction Allergy Type Onset Date Status Mold, Dust sneezing Non Drug Allergy Active ENCOUNTERS from 1940 to 2020-11-14 Encounter Location Date Provider Diagnosis [facility] Chelly Cook[address] [facility] [phone] [place] [address] 13 Nov, 2020 Yuly Mclain IMMUNIZATIONS Vaccine Route Administration Date Status Influenza [...] Notes Total Score: 2 Interpretation: Alcohol Education Moravian: Question Answer Notes Moravian 13 Samaritan No denominational beliefs that would impact health care. Sexual [...] tablet Orally Once a day Active Drisdol 79838 UNIT 1 capsule Orally Monthy for 90 [...] Information RESULTS No Results REASON FOR VISIT bladder infection MEDICAL (GENERAL) HISTORY Type Description Date Medical History CAD s/p [place] - Dr. 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 - [facility] Surgical History APPENDECTOMY Surgical History [...] Details Provider Name:Yuly Mclain, 2020-12 03:15:00 PM, [address], , [place], [phone], Insurance Providers Payer Name Payer Address Payer Phone Insured Name Patient Relati onship to Insured Coverage Start Date Coverage End Date BCBS [place] PPO [phone] [facility] [place] [address] JUAN HELTON self MEDICARE Part A and B [facility] [address] [place] [phone] JUAN HELTON self
--- OUTSIDE RECORDS SUMMARY | 2021-02-07 08:08 | CCD ---
Author Author [facility] Organization [facility] Address Unknown Phone Unavailable Care Team Providers Care Director Of Application Development Name Role Phone Dianna Edmonds Unavailable PROBLEMS Type Condition ICD9-CM Code NIL21-BU Code Onset Dates Condition S tatus W/U Status Risk SNOMED Code Notes Problem Gout 274.9 Active confirmed 66415402 Problem Essential hypertension 401.9 Active confirmed 73347613 Problem Mixed hyperlipidemia 272.2 Active confirmed 412652701 Problem Vitamin d deficiency 268.9 Active confirmed 23131582 Problem Vitamin D deficiency E55.9 Active confirmed 65174988 Problem Increasing prostate specific antigen level R97.20 Active confirmed 503268660 Problem Memory changes R41.3 Active confirmed 98507 7006 Problem Gastroesophageal reflux disease without esophagitis K21.9 Active confirmed 718277974 Problem B12 deficiency E53.8 Active confirmed 69675 4004 Problem Essential tremor G25.0 Active confirmed 609 528321 Problem Abdominal aortic aneurysm (AAA) without rupture I7 1.4 Active confirmed 39614372 Problem Pulmonary emphysema, unspecified emphysema type J4 3.9 Active confirmed 48166477 Problem Erectile dysfunction, unspecified erectile dysfunction typ e N52.9 Active confirmed 644409108 Problem Constipation, unspecified constipation type K59.00 Active confirmed 94248328 Problem Coronary artery disease invo lving [place] coronary artery of [place] heart without angina pectoris I25.10 Active confirmed 016136 058936805 Problem Anemia, chronic disease D63.8 Active confirmed 964444041 Problem Smoker F17.200 Active confirmed 55244843 Problem Enlarged thyroid E04.9 Active confirmed 371 6002 Problem Pure hypercholesterolemia E78.00 Active confirmed 380171348 ALLERGIES Allergen (clinical drug ingredient) Drug/Non Drug Allergy do cumented on EMR Reaction Allergy Type Onset Date Status Mold, Dust sneezing Non Drug Allergy Active ENCOUNTERS from 1940 to 2020-11-16 Encounter Location Date Provider [facility] [phone] [place] [address] 13 Nov, 2020 Dianna Edmonds Lower abdominal pain R10.30 ; Upper abdominal pain R10.10 ; Hematuria, unspecified type R31.9 ; Constipation, unspecified constipation type K59.00 and Hydronephrosis, unspecified hydronephrosis type N13.30 IMMUNIZATIONS Vaccine Route Administration Date Status COVID-19 [...] Notes Total Score: 2 Interpretation: Alcohol Education Worship: Question Answer Notes Worship 13 Jainism No alevism beliefs that would impact health [...] FOR REFERRAL No Information VITAL SIGNS Weight 200 lbs Nov, Weight-kg 90.72 kg Nov, Height 70 in Nov, BMI 28.69 kg/m2 Nov, Heart Rate 65 /min Nov, Respiratory Rate 18 /min Nov, Temperature 96.7 degrees Fahrenheit Nov, Oximetry 96 Nov, Blood pressure systolic 118 mm Hg Nov, Blood pressure diastolic 62 mm Hg Nov, MEDICATIONS Medication SIG (Take, Route, Frequency, Duration) Notes Start Da te End Date Status Allopurinol 100 mg 1 tablet Orally Once a day Active Drisdol 79712 UNIT 1 capsule Orally Monthy for 90 [...] day(s) Oct, Active PROCEDURES No Information RESULTS Component Value Reference Range Urinalysis, no Micro Reviewed date:11/14/2020 12:32:18 Interpretation: Performing Lab:[facility] [place], ,[place] [address] Spec gravity 1.010 1.002 - 1.035 pH 5 5.0 - 9.0 Leukocyte negative Negative - Nitrate negative Negative - Protein trace Negative - mg/dl Glucose normal Negative - mg/dl Ketones negative Negative - mg/dl Urobili normal Normal - mg/dl Bilirubin negative Negative - Blood 250 Negative - Internal QC Acceptable (Y/N) yes Comprehensive Metabolic Profile (CMP) Reviewed date:11/14/2020 17:29:26 Interpretation: Performing Lab:[facility], [facility] [id number] , ,[place] [address] GLUCOSE, FASTING 91 70-100 BLOOD UREA NITROGEN 38 7-18 CREATININE FOR GFR 1.12 0.70-1.30 GLOMERULAR FILTRATION RATE > 60.0 >42 SODIUM LEVEL 136 136-145 POTASSIUM SERUM 3.8 3.5-5.1 CHLORIDE LEVEL 100 98-107 CARBON DIOXIDE LEVEL 30 21-32 CALCIUM LEVEL 9.4 8.8-10.2 AST/SGOT 45 7-37 ALT/SGPT 35 12-78 ALKALINE PHOSPHATASE 79 45-117 BILIRUBIN,TOTAL 0.5 0.2-1.0 TOTAL PROTEIN 6.7 6.4-8.2 ALBUMIN 3.0 3.2-5.2 ALBUMIN/GLOBULIN RATIO 0.8 LIPASE Reviewed date:11/14/2020 17:28:52 Interpretation: Performing Lab:[facility], [facility] [address] [address] , ,[place] [address] LIPASE 77 73-393 PSA SCREENING Reviewed date:11/14/2020 17:28:52 Interpretation: Performing Lab:[facility], [facility] [address] [address] , ,[place] [address] PSA SCREENING 3.65 < 4.00 CBC with Auto Differential Reviewed date:11/14/2020 17:29:16 Interpretation: Performing Lab:[facility] [address] [address] , ,[facility] WHITE BLOOD COUNT 9.9 4.0-10.0 RED BLOOD COUNT 3.82 4.30-6.10 HEMOGLOBIN 10.9 13.5-17.5 HEMATOCRIT 33.7 42.0-52.0 MEAN CORPUSCULAR VOLUME 88.2 80.0-96.0 MEAN CORPUSCULAR HEMOGLOBIN 28.5 27.0-33.0 MEAN CORPUSCULAR HGB CONC 32.3 32.0-36.5 RED CELL DISTRIBUTION WIDTH 17.0 11.5-14.5 PLATELET COUNT, AUTOMATED 214 150-450 NEUTROPHILS % 75.7 36.0-66.0 LYMPH % 12.8 24.0-44.0 MONO % 10.2 2.0-8.0 EOS % 0.5 0.0-3.0 BASO % 0.2 0.0-1.0 IMMATURE GRANULOCYTE % 0.6 0-3.0 NUCLEATED RED BLOOD CELL % 0.0 0-0 NEUTROPHILS # 7.5 1.5-8.5 LYMPH # 1.3 1.5-5.0 MONO # 1.0 0.0-0.8 EOS # 0.1 0.0-0.5 BASO # 0.0 0.0-0.2 URINE CULTURE Reviewed date:11/15/2020 13:04:17 Interpretation: Performing Lab:[facility], [facility] [id number] , ,[place] [address] CT ABD/PEL w/IV & Oral Contrast Reviewed date:11/15/2020 07:08:30 Interpretation: Performing Lab:[facility] [place], ,[place] [address] REASON FOR VISIT uti ?? MEDICAL (GENERAL) HISTORY Type Description Date Medical History CAD s/p [place] - Dr. 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 - [facility] Surgical History APPENDECTOMY Surgical History [...] Treatment Notes Treatm ent Clinical Notes Nov, Lower abdominal pain (ICD-10 - R10.30) Will obtain stat CT of abd/pelvis and labs Nov, Upper abdominal pain (ICD-10 - R10.10) Nov, Hematuria, unspecified type (ICD-10 - R31.9) Nov, Constipation, unspecified constipation type (ICD -10 - K59.00) Nov, Hydronephrosis, unspecified hydronephros is type (ICD-10 - N13.30) Call from field service technician; "urine full and backing up into kidneys bilaterally." Pt referred to the ED PLAN OF TREATMENT Treatment Notes Assessment Notes Clinical Notes Lower abdominal pain Will obtain stat CT of abd/pelvis and labs Hydronephrosis, unspecified hydronephrosis type Call from field service technician; "urine full and backing up into kidneys bilaterally."Pt referred to the ED Treatment Notes Test Name Order Date uro PVR (Post Voiding Residual) Bladder Scan 2020-11-02 3 Next Appt Details Provider Name:Nicolás Crawford, 10:00:00 AM, [address], , [place], [address], Provider Name:Yuly Sorianohayleegoran, 2020-12 03:15:00 PM, [address], , [place], [address], Insurance Providers Payer Name Payer Address Payer Phone Insured Name Patient Relati onship to Insured Coverage Start Date Coverage End Date [employer] [place] [facility] [phone] [facility] [employer] [facility] [place] [id number] JUAN HELTON MEDICARE Part A and B [address] [place] [phone] JUAN HELTON
--- OUTSIDE RECORDS SUMMARY | 2021-02-07 08:09 | CCD ---
Author Author [facility] Organization [facility] Address Unknown Phone Unavailable Care Team Providers Care Practice Representative Name Role Phone NO, PCP Unavailable Unavailable Morrison, Molly YACHT CAPTAIN Unavailable Unavailable Morrison, Molyl YACHT CAPTAIN Unavailable Unavailable Morrison, Molly YACHT CAPTAIN Unavailable Unavailable Morrison, Molly YACHT CAPTAIN Unavailable Unavailable Morrison, Molly YACHT CAPTAIN Unavailable Unavailable Morrison, Molly YACHT CAPTAIN Unavailable Unavailable Morrison, Molly YACHT CAPTAIN Unavailable Unavailable Morrison, Molly YACHT CAPTAIN Unavailable Unavailable Morrison, Molly YACHT CAPTAIN Unavailable Unavailable Morrison, Molly YACHT CAPTAIN Unavailable Unavailable Morrison, Molly YACHT CAPTAIN Unavailable Unavailable Morrison, Molly YACHT CAPTAIN Unavailable Unavailable Morrison, Molly YACHT CAPTAIN Unavailable Unavailable LETTIERE, A KATIANA PA Unavailable Unavailable LETTIERE, A KATIANA PA Unavailable Unavailable LETTIERE, A KATIANA PA Unavailable Unavailable LETTIERE, A KATIANA PA Unavailable Unavailable LETTIERE, A KATIANA PA Unavailable Unavailable LETTIERE, A KATIANA PA Unavailable Unavailable LETTIERE, A KATIANA PA Unavailable Unavailable LETTIERE, A AKTIANA PA Unavailable Unavailable LETTIERE, A KATIANA PA Unavailable Unavailable LETTIERE, A KATIANA PA Unavailable Unavailable LETTIERE, A KATIANA PA Unavailable Unavailable LETTIERE, A KATIANA PA Unavailable Unavailable LETTIERE, A KATIANA PA Unavailable Unavailable LETTIERE, A KATIANA PA Unavailable Unavailable LETTIERE, A KATIANA PA Unavailable Unavailable LETTIERE, A KATIANA PA Unavailable Unavailable LETTIERE, A KATIANA PA Unavailable Unavailable LETTIERE, A KATIANA PA Unavailable Unavailable LETTIERE, A KATIANA PA Unavailable Unavailable LETTIERE, A KATIANA PA Unavailable Unavailable LETTIERE, A KATIANA PA Unavailable Unavailable LETTIERE, A KATIANA PA Unavailable Unavailable LETTIERE, A KATIANA PA Unavailable Unavailable LETTIERE, A KATIANA PA Unavailable Unavailable LETTIERE, A KATIANA PA Unavailable Unavailable LETTIERE, A KATIANA PA Unavailable Unavailable LETTIERE, A KATIANA PA Unavailable Unavailable LETTIERE, A KATIANA PA Unavailable Unavailable LETTIERE, A KATIANA PA Unavailable Unavailable LETTIERE, A KATIANA PA Unavailable Unavailable LETTIERE, A KATIANA PA Unavailable Unavailable DARION, C ERENDIRA YACHT CAPTAIN Unavailable Unavailable DARION, C ERENDIRA YACHT CAPTAIN Unavailable Unavailable DARION, C ERENDIRA YACHT CAPTAIN Unavailable Unavailable DARION, C ERENDIRA YACHT CAPTAIN Unavailable Unavailable DARION, C ERENDIRA YACHT CAPTAIN Unavailable Unavailable DARION, C ERENDIRA YACHT CAPTAIN Unavailable Unavailable DARION, C ERENDIRA YACHT CAPTAIN Unavailable Unavailable DARION, C ERENDIRA YACHT CAPTAIN Unavailable Unavailable DARION, C ERENDIRA YACHT CAPTAIN Unavailable Unavailable DARION, C ERENDIRA YACHT CAPTAIN Unavailable Unavailable DARION, C ERENDIRA YACHT CAPTAIN Unavailable Unavailable DARION, C ERENDIRA YACHT CAPTAIN Unavailable Unavailable DARION, C ERENDIRA YACHT CAPTAIN Unavailable Unavailable DARION, C ERENDIRA YACHT CAPTAIN Unavailable Unavailable DARION, C ERENDIRA YACHT CAPTAIN Unavailable Unavailable DARION, C ERENDIRA YACHT CAPTAIN Unavailable Unavailable DARION, C ERENDIRA YACHT CAPTAIN Unavailable Unavailable DARION, C ERENDIRA YACHT CAPTAIN Unavailable Unavailable DARION, C ERENDIRA YACHT CAPTAIN Unavailable Unavailable DARION, C ERENDIRA YACHT CAPTAIN Unavailable Unavailable DARION, C ERENDIRA YACHT CAPTAIN Unavailable Unavailable DARION, C ERENDIRA YACHT CAPTAIN Unavailable Unavailable DARION, C ERENDIRA YACHT CAPTAIN Unavailable Unavailable DARION, C ERENDIRA YACHT CAPTAIN Unavailable Unavailable DARION, C ERENDIRA YACHT CAPTAIN Unavailable Unavailable DARION, C ERENDIRA YACHT CAPTAIN Unavailable Unavailable DARION, C ERENDIRA YACHT CAPTAIN Unavailable Unavailable DARION, C ERENDIRA YACHT CAPTAIN Unavailable Unavailable DARION, C ERENDIRA YACHT CAPTAIN Unavailable Unavailable DARION, C ERENDIRA YACHT CAPTAIN Unavailable Unavailable DARION, C ERENDIRA YACHT CAPTAIN Unavailable Unavailable RICHARDSON CHEATHAM PA Unavailable Unavailable CHAPARRITA, RICHARDSON PA Unavailable Unavailable CHAPARRITA, RICHARDSON PA Unavailable Unavailable CHAPARRITA, RICHARDSON PA Unavailable Unavailable CHAPARRITA, RICHARDSON PA Unavailable Unavailable CHAPARRITA, RICHARDSON PA Unavailable Unavailable CHAPARRITA, RICHARDSON PA Unavailable Unavailable CHAPARRITA, RICHARDSON PA Unavailable Unavailable CHAPARRITA, RICHARDSON PA Unavailable Unavailable CHAPARRITA, RICHARDSON PA Unavailable Unavailable CHAPARRITA, RICHARDSON PA Unavailable Unavailable CHAPARRITA, RICHARDSON PA Unavailable Unavailable CHAPARRITA, RICHARDSON PA Unavailable Unavailable CHAPARRITA, RICHARDSON PA Unavailable Unavailable CHAPARRITA, RICHARDSON PA Unavailable Unavailable CHAPARRITA, RICHARDSON PA Unavailable Unavailable CHAPARRITA, RICHARDSON PA Unavailable Unavailable CHAPARRITA, RICHARDSON PA Unavailable Unavailable CHAPARRITA, RICHARDSON PA Unavailable Unavailable CHAPARRITA, RICHARDSON PA Unavailable Unavailable CHAPARRITA, RICHARDSON PA Unavailable Unavailable CHAPARRITA, RICHARDSON PA Unavailable Unavailable CHAPARRITA, RICHARDSON PA Unavailable Unavailable CHAPARRITA, RICHARDSON PA Unavailable Unavailable CHAPARRITA, RICHARDSON PA Unavailable Unavailable CHAPARRITA, RICHARDSON PA Unavailable Unavailable CHAPARRITA, RICHARDSON PA Unavailable Unavailable CHAPARRITA, RICHARDSON PA Unavailable Unavailable CHAPARRITA, RICHARDSON PA Unavailable Unavailable CHAPARRITA, RICHARDSON PA Unavailable Unavailable CHAPARRITA, RICHARDSON PA Unavailable Unavailable CHAPARRITA, RICHARDSON PA Unavailable Unavailable CHAPARRITA, RICHARDSON PA Unavailable Unavailable CHAPARRITA, RICHARDSON PA Unavailable Unavailable CHAPARRITA, RICHARDSON PA Unavailable Unavailable CHAPARRITA, RICHARDSON PA Unavailable Unavailable Randall Mclain MD Unavailable Unavailable Randall Mclain MD Unavailable Unavailable BoterRandall zimmer MD Unavailable Unavailable Randall Mclain MD Unavailable Unavailable BoterRandall zimmer MD Unavailable Unavailable BoterRandall zimmer MD Unavailable Unavailable Randall Mclain MD Unavailable Unavailable Randall Mclain MD Unavailable Unavailable Randall Mclain MD Unavailable Unavailable Randall Mclain MD Unavailable Unavailable Randall Mclain MD Unavailable Unavailable Randall Mclain MD Unavailable Unavailable BoterRandall zimmer MD Unavailable Unavailable BoterRandall zimmer MD Unavailable Unavailable BoterRandall zimmer MD Unavailable Unavailable BoterRandall zimmer MD Unavailable Unavailable BoterRandall zimmer MD Unavailable Unavailable BoterRandall zimmer MD Unavailable Unavailable BoterRandall zimmer MD Unavailable Unavailable BoterRandall zimmer MD Unavailable Unavailable BoterRandall zimmer MD Unavailable Unavailable WetterhahnRandall MD Unavailable Unavailable WetterhahnRandall MD Unavailable Unavailable WetterhahnRandall MD Unavailable Unavailable WetterhahnRandall MD Unavailable Unavailable WetterhahnRandall MD Unavailable Unavailable WetterhahnRandall MD Unavailable Unavailable WetterhahnRandall MD Unavailable Unavailable WetterhahnRandall MD Unavailable Unavailable WetterhahnRandall MD Unavailable Unavailable WetterhahnRandall MD Unavailable Unavailable WetterhahnRandall MD Unavailable Unavailable WetterhahnRandall MD Unavailable Unavailable WetterhahnRandall MD Unavailable Unavailable Wetterhahn, Randall TOSCANO Unavailable Unavailable WetterhahnRandall MD Unavailable Unavailable WetterhahnRandall MD Unavailable Unavailable WetterhahnRandall MD Unavailable Unavailable WetterhahnRandall MD Unavailable Unavailable WetterhahnRandall MD Unavailable Unavailable WetterhahnRandall MD Unavailable Unavailable WetterhahnRandall MD Unavailable Unavailable WetterhahnRandall MD Unavailable Unavailable WetterhahnRandall MD Unavailable Unavailable WetterhahnRandall MD Unavailable Unavailable WetterhahnRandall MD Unavailable Unavailable WetterhahnRanadll MD Unavailable Unavailable WetterhahnRandall MD Unavailable Unavailable WetterhahnRandall MD Unavailable Unavailable WetterhahnRandall MD Unavailable Unavailable WetterhahnRandall MD Unavailable Unavailable WetterhahnRandall MD Unavailable Unavailable WetterhahnRandall MD Unavailable Unavailable WetterhahnRandall MD Unavailable Unavailable WetterhahnRandall MD Unavailable Unavailable WetterhahnRandall MD Unavailable Unavailable WetterhahnRandall MD Unavailable Unavailable WetterhahnRandall MD Unavailable Unavailable WetterhahnRandall MD Unavailable Unavailable WetterhahnRandall MD Unavailable Unavailable WetterhahnRandall MD Unavailable Unavailable WetterhahnRandall MD Unavailable Unavailable WetterhahnRandall MD Unavailable Unavailable WetterhahnRandall MD Unavailable Unavailable WetterhahnRandall MD Unavailable Unavailable WetterhahnRandall MD Unavailable Unavailable WetterhahnRandall MD Unavailable Unavailable WetterhahnRandall MD Unavailable Unavailable WetterhahnRandall MD Unavailable Unavailable WetterhahnRandall MD Unavailable Unavailable WetterhahnRandall MD Unavailable Unavailable WetterhahnRandall MD Unavailable Unavailable WetterhahnRandall MD Unavailable Unavailable Hector Jensen JR, MD Unavailable Unavailable Hector Jensen JR, MD Unavailable Unavailable Hector Jensen JR, MD Unavailable Unavailable Mikey JR, D Flori TOSCANO Unavailable Unavailable Mikey JR, D Flori TOSCANO Unavailable Unavailable Mikey JR, D Flori TOSCANO Unavailable Unavailable Mikey JR, D Flori TOSCANO Unavailable Unavailable Mikey JR, D Flori TOSCANO Unavailable Unavailable Mikey JR, D Flori TOSCANO Unavailable Unavailable Mikey JR, D Flori TOSCANO Unavailable Unavailable Mikey JR, D Flori TOSCANO Unavailable Unavailable Mikey JR, D Flori TOSCANO Unavailable Unavailable Mikey JR, D Flori TOSCANO Unavailable Unavailable Mikey JR, D Flori TOSCANO Unavailable Unavailable Mikey JR, D Flori TOSCANO Unavailable Unavailable Mikey JR, D Flori TOSCANO Unavailable Unavailable Mikey JR, D Flori TOSCANO Unavailable Unavailable Mikey JR, D Flori TOSCANO Unavailable Unavailable Mikey JR, D Flori TOSCANO Unavailable Unavailable Mikey JR, D Flori TOSCANO Unavailable Unavailable Mikey JR, D Flori TOSCANO Unavailable Unavailable Mikey JR, D Folri TOSCANO Unavailable Unavailable Mikey JR, D Flori TOSCANO Unavailable Unavailable Mikey JR, D Flori TOSCANO Unavailable Unavailable Mikey JR, D Flori TOSCANO Unavailable Unavailable Mikey JR, D Flori TOSCANO Unavailable Unavailable Mikey JR, D Flori TOSCANO Unavailable Unavailable Mikey JR, D Flori TOSCANO Unavailable Unavailable Mikey JR, D Flori TOSCANO Unavailable Unavailable Mikey JR, D Flori TOSCANO Unavailable Unavailable Mikey JR, D Flori TOSCANO Unavailable Unavailable Mikey JR, D Flori TOSCANO Unavailable Unavailable Mikey JR, D Flori TOSCANO Unavailable Unavailable Mikey JR, D Flori TOSCANO Unavailable Unavailable Mikey JR, D Flori TOSCANO Unavailable Unavailable Mikey JR, D Flori TOSCANO Unavailable Unavailable Mikey JR, D Flori TOSCANO Unavailable Unavailable Mikey JR, D Flori TOSCANO Unavailable Unavailable Mikey JR, D Flori TOSCANO Unavailable Unavailable Mikey JR, D Flori TOSCANO Unavailable Unavailable Mikey JR, D Flori TOSCANO Unavailable Unavailable Mikey JR, D Flori TOSCANO Unavailable Unavailable Mikey JR, D Flori TOSCANO Unavailable Unavailable Mikey JR, D Flori TOSCANO Unavailable Unavailable Mikey JR, D Flori TOSCANO Unavailable Unavailable Mikey JR, D Flori TOSCANO Unavailable Unavailable Mikey JR, D Flori TOSCANO Unavailable Unavailable Mikey JR, D Flori TOSCANO Unavailable Unavailable Mikey JR, D Flori TOSCANO Unavailable Unavailable Mikey JR, D Flori TOSCANO Unavailable Unavailable Mikey JR, D Flori TOSCANO Unavailable Unavailable Mikey JR, D Flori TOSCANO Unavailable Unavailable Mikey JR, D Flori TOSCANO Unavailable Unavailable Mikey JR, D Flori TOSCANO Unavailable Unavailable Mikey JR, D Flori TOSCANO Unavailable Unavailable Mikey JR, D Flori TOSCANO Unavailable Unavailable Mikey JR, D Flori TOSCANO Unavailable Unavailable Mikey JR, D Flori TOSCANO Unavailable Unavailable Mikey JR, D Flori TOSCANO Unavailable Unavailable Mikey JR, D Flori TOSCANO Unavailable Unavailable Mikey JR, D Flori TOSCANO Unavailable Unavailable Mikey JR, D Flori TOSCANO Unavailable Unavailable Mikey JR, D Flori TOSCANO Unavailable Unavailable Mikey JR, D Flori TOSCANO Unavailable Unavailable Mikey JR, D Flori TOSCANO Unavailable Unavailable Mikey JR, D Flori TOSCANO Unavailable Unavailable Mikey JR, D Flori TOSCANO Unavailable Unavailable Mikey JR, D Flori TOSCANO Unavailable Unavailable Nikky Greer MD Unavailable Unavailable Nikky Greer MD Unavailable Unavailable Nikky Greer MD Unavailable Unavailable Nikky Greer MD Unavailable Unavailable Nikky Greer MD Unavailable Unavailable Nikky Greer MD Unavailable Unavailable Nikky Greer MD Unavailable Unavailable Nikky Greer MD Unavailable Unavailable Nikky Greer MD Unavailable Unavailable Nikky Greer MD Unavailable Unavailable Nikky Greer MD Unavailable Unavailable Nikky Greer MD Unavailable Unavailable Nikky Greer MD Unavailable Unavailable Nikky Greer MD Unavailable Unavailable Nikky Greer MD Unavailable Unavailable Nikky Greer MD Unavailable Unavailable Nikky Greer MD Unavailable Unavailable Nikky Greer MD Unavailable Unavailable Nikky Greer MD Unavailable Unavailable Nikky Greer MD Unavailable Unavailable Nikky Greer MD Unavailable Unavailable Nikky Greer MD Unavailable Unavailable Nikky Greer MD Unavailable Unavailable Nikky Greer MD Unavailable Unavailable Nikky Greer MD Unavailable Unavailable Nikky Greer MD Unavailable Unavailable Nikky Greer MD Unavailable Unavailable Nikky Greer MD Unavailable Unavailable Nikky Greer MD Unavailable Unavailable Nikky Greer MD Unavailable Unavailable Nikky Greer MD Unavailable Unavailable Nikky Greer MD Unavailable Unavailable Nikky Greer MD Unavailable Unavailable Nikky Greer MD Unavailable Unavailable Nikky Greer MD Unavailable Unavailable Nikky Greer MD Unavailable Unavailable Nikky Greer MD Unavailable Unavailable Nikky Greer MD Unavailable Unavailable Nikky Greer MD Unavailable Unavailable Nikky Greer MD Unavailable Unavailable Nikky Greer MD Unavailable Unavailable Nikky Greer MD Unavailable Unavailable Nikky Greer MD Unavailable Unavailable Nikky Greer MD Unavailable Unavailable Nikky Greer MD Unavailable Unavailable Nikky Greer MD Unavailable Unavailable Nikky Greer MD Unavailable Unavailable Nikky Greer MD Unavailable Unavailable Nikky Greer MD Unavailable Unavailable Nikky Greer MD Unavailable Unavailable Nikky Greer MD Unavailable Unavailable Nikky Greer MD Unavailable Unavailable Nikky Greer MD Unavailable Unavailable Nikky Greer MD Unavailable Unavailable Nikky Greer MD Unavailable Unavailable Nikky Greer MD Unavailable Unavailable Nikky Greer MD Unavailable Unavailable Nikky Greer MD Unavailable Unavailable Nikky Greer MD Unavailable Unavailable Nikky Greer MD Unavailable Unavailable Nikky Greer MD Unavailable Unavailable Nikky Greer MD Unavailable Unavailable Nikky Greer MD Unavailable Unavailable Nikky Greer MD Unavailable Unavailable Nikky Greer MD Unavailable Unavailable Nikky Greer MD Unavailable Unavailable Nikky Greer MD Unavailable Unavailable Nikky Greer MD Unavailable Unavailable Nikky Greer MD Unavailable Unavailable Nikky Greer MD Unavailable Unavailable Nikky Greer MD Unavailable Unavailable Nikky Greer MD Unavailable Unavailable Nikky Greer MD Unavailable Unavailable Root, Berlin Lee MD Unavailable Unavailable Root, Berlin Lee MD Unavailable Unavailable Root, Berlin Lee MD Unavailable Unavailable Root, Berlin Lee MD Unavailable Unavailable Root, Berlin Lee MD Unavailable Unavailable Root, Berlin Lee MD Unavailable Unavailable Root, Berlin Lee MD Unavailable Unavailable Root, Berlin Lee MD Unavailable Unavailable Root, Berlin Lee MD Unavailable Unavailable Root, Berlin Lee MD Unavailable Unavailable Root, Berlin Lee MD Unavailable Unavailable Root, Berlin Lee MD Unavailable Unavailable Root, Berlin Lee MD Unavailable Unavailable Root, Berlin Lee MD Unavailable Unavailable Root, Berlin Lee MD Unavailable Unavailable Root, Berlin Lee MD Unavailable Unavailable Root, Berlin Lee MD Unavailable Unavailable Root, Berlin Lee MD Unavailable Unavailable Root, Berlin Lee MD Unavailable Unavailable Root, Berlin Lee MD Unavailable Unavailable Root, Berlin Lee MD Unavailable Unavailable Root, Berlin Lee MD Unavailable Unavailable Root, Berlin Lee MD Unavailable Unavailable Root, Berlin Lee MD Unavailable Unavailable Root, Berlin Lee MD Unavailable Unavailable Root, Berlin Lee MD Unavailable Unavailable Root, Berlin Lee MD Unavailable Unavailable Root, Berlin Lee MD Unavailable Unavailable Root, Berlin Lee MD Unavailable Unavailable Root, Berlin Lee MD Unavailable Unavailable Root, Berlin Lee MD Unavailable Unavailable Root, Berlin Lee MD Unavailable Unavailable Root, Berlin Lee MD Unavailable Unavailable Root, Berlin Lee MD Unavailable Unavailable Root, Berlin Lee MD Unavailable Unavailable Root, Berlin Lee MD Unavailable Unavailable Root, Berlin Lee MD Unavailable Unavailable Root, Berlin Lee MD Unavailable Unavailable Root, Berlin Lee MD Unavailable Unavailable Root, Berlin Lee MD Unavailable Unavailable Root, Berlin Lee MD Unavailable Unavailable Root, Berlin Lee MD Unavailable Unavailable Root, Berlin Lee MD Unavailable Unavailable Root, Berlin Lee MD Unavailable Unavailable Root, Berlin Lee MD Unavailable Unavailable Root, Berlin Lee MD Unavailable Unavailable Root, Berlin Lee MD Unavailable Unavailable Root, Berlin Lee MD Unavailable Unavailable Root, Berlin Lee MD Unavailable Unavailable Root, Berlin Lee MD Unavailable Unavailable Root, Berlin Lee MD Unavailable Unavailable Root, Berlin Lee MD Unavailable Unavailable Root, Berlin Lee MD Unavailable Unavailable Root, Berlin Lee MD Unavailable Unavailable Root, Berlin Lee MD Unavailable Unavailable Re-disclosure Warning The records that you are about to access may contain information from federally-assisted alcohol or drug abuse programs. If such information is present, then the following federally mandated warning applies: This information has been disclosed to you from records protected by federal confidentiality rules (42 CFR part 2). The federal rules prohibit you from making any further disclosure of this information unless further disclosure is expressly permitted by the written consent of the person to whom it pertains or as otherwise permitted by 42 CFR part 2. A general authorization for the release of medical or other information is NOT sufficient for this purpose. The Federal rules restrict any use of the information to criminally investigate or prosecute any alcohol or drug abuse patient.The records that you are about to access may contain highly sensitive health information, the redisclosure of which is protected by Article 27-F of the [facility] Public Health law. If you continue you may have access to information: Regarding HIV / AIDS; Provided by facilities licensed or operated by the [facility] Office of Mental Health; or Provided by the [facility] Office for People With Developmental Disabilities. If such information is present, then the following [facility] mandated warning applies: This information has been disclosed to you from confidential records which are protected by state law. State law prohibits you from making any further disclosure of this information without the specific written consent of the person to whom it pertains, or as otherwise permitted by law. Any unauthorized further disclosure in violation of state law may result in a fine or mcc sentence or both. A general authorization for the release of medical or other information is NOT sufficient authorization for further disc losure. Allergies and Adverse Reactions Type Description Substance Reaction Status Data Source(s ) Propensity to adverse reactions NO KNOWN ALLERGIES NO KNOWN ALLERGIES [facility] No Known Drug Allergies No Known Drug Allergies [facility] Family History Family Member Name Family Member Gender Family Member Status Date o f Status Description Data Source(s) Unknown Unknown Problem [facility] ([facility], ) Encounters Encounter Providers Location Date Indications Data Source(s ) Outpatient Attender: Noe Greer MD 05/31/2021 12:00:00 AM [facility] Outpatient Attender: Jesus Hernández/Inessa/Matthew/Aparna adams 01/30/2021 08:00:00 AM EST [facility] ([facility]) Outpatient Attender: KATIANA griffiths 01/27/2021 01:25:00 PM EST [facility] ([facility] Office Visit, Est Pt., Level 4 PC [address] [place] [address] 01/09/2021 12:00:00 AM EST eCW1 ([facility]) Outpatient Attender: RICHARDSON Malhotra ry 01/07/2021 08:00:00 AM EDT [facility] ([facility]) Outpatient [address] [facility] [place] [id number] 12/22/2020 12:00:00 AM EDT eCW1 ([facility]) Unknown [address] [facility] [place] [address] 12/21/2020 12:00:00 AM EDT eCW1 ([facility]) Unknown [address] [facility] [place] [address] 12/16/2020 12:00:00 AM EDT eCW1 ([facility]) Outpatient [address] [facility] [id number] 12/08/2020 12:00:00 AM EDT eCW1 ([facility]) Unknown [address] [facility] [id number] 11/24/2020 12:00:00 AM EDT eCW1 ([facility]) Outpatient Attender: ERENDIRA ORLANDO NPReferrer: Addy Mclain MD [facility] 11/22/2020 12:37:13 PM EDT - 11/22/2020 01:45:31 PM ED T Atherosclerotic heart disease of [place] coronary artery without angina pectoris [facility] Atherosclerotic heart disease of [place] coronary artery without angina pectoris Outpatient 11/22/2020 12:00:00 AM [facility] Outpatient Attender: ERENDIRA ORLANDO YACHT CAPTAIN 11/22/2020 12:00:00 AM [facility] Outpatient [address] [facility] [place] [id number] 11/17/2020 12:00:00 AM EDT eCW1 ([facility]) Unknown [address] [facility] [place] [address] 11/15/2020 12:00:00 AM EDT eCW1 ([facility]) Outpatient [address] [facility] [place] [id number] 11/14/2020 12:00:00 AM EDT [facility]CW1 ([facility] Unknown [address] [facility] [place] [address] 11/14/2020 12:00:00 AM EDT eCW1 ([facility]) Outpatient [address] [facility] [place] [address] 11/10/2020 12:00:00 AM EDT eCW1 ([facility]) Outpatient Attender: RICHARDSON Malhotra ry 10/24/2020 02:50:00 PM EDT [facility] ([facility]) Outpatient [address] [facility] [place] [address] 10/24/2020 12:00:00 AM EDT eCW1 ([facility]) Outpatient Attender: RICHARDSON Malhotra ry 10/20/2020 08:00:00 AM EDT [facility] ([facility]) Office Visit, Est Pt., Level 4 PC [address] [place] [address] 09/28/2020 12:00:00 AM EDT eCW1 ([facility]) Unknown [address] [facility] [place] [address] 09/27/2020 12:00:00 AM EDT eCW1 ([facility]) Postop visit [address] [facility] [place] [address] 08/25/2020 12:00:00 AM EDT eCW1 ([facility]) Outpatient [address] [facility] [place] [address] 08/24/2020 12:00:00 AM EDT eCW1 ([facility]) Outpatient Attender: Flori Jensen JRConsultant: PCP DIANA 07/14/2020 08:00:00 AM EDT - 07/14/2020 09:53:00 AM EDT [facility] Patient discharged. 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 Atherosclerotic heart disease of grayling coronary artery without angina pectoris Outpatient Attender: Flori Lazcanoant: PCP NO 07/09/2020 08:47:00 AM EDT - 07/09/2020 09:47:00 AM EDT [facility] Patient discharged. Outpatient Attender: Flori Poncesuant: PCP NO 06/17/2020 11:45:59 AM EDT - 06/20/2020 08:23:00 AM EDT [facility] Patient discharged. [place] [address] [facility] [address] 06/16/2020 12:00:00 AM EDT eCW1 ([facility]) Unknown [address] [facility] [address] 06/10/2020 12:00:00 AM EDT eCW1 ([facility]) Outpatient [address] [facility] [address] 06/10/2020 12:00:00 AM EDT eCW1 ([facility]) Outpatient Attender: Flori Garner: PCP NO 06/04/2020 09:17:00 AM EDT - 06/04/2020 10:17:00 AM EDT [facility] Patient discharged. (MMS 1) [facility] [address] [facility] [address] 06/02/2020 12:00:00 AM EDT eCW1 ([facility]) Outpatient Attender: Flori Garner: PCP NO 06/01/2020 10:31:42 AM EDT - 06/09/2020 09:15:00 AM EDT [facility] Patient discharged. Outpatient Attender: Molly blakely 05/30/2020 03:00:00 PM EDT MEDENT ([facility]) Outpatient Attender: Flori Lazcanoant: PCP NO 05/26/2020 06:39:00 AM EDT - 05/26/2020 10:45:00 AM EDT [facility] Patient discharged. Outpatient Attender: Flori Poncesultant: PCP NO 05/21/2020 08:21:00 AM EDT - 05/21/2020 09:22:00 AM EDT [facility] Patient discharged. Outpatient Attender: Noe Greer MDReferrer: Randall kumar MD [facility] 05/20/2020 12:00:00 AM EDT - 05/20/2020 11:15:59 AM EDT Atherosclerotic heart disease of grayling coronary artery without angina pectoris [facility] Atherosclerotic heart disease of grayling coronary artery without angina pectoris Outpatient Attender: Flori Poncesultant: PCP NO 05/19/2020 01:47:59 PM EDT - 05/25/2020 06:43:00 AM EDT [facility] Patient discharged. Unknown [address] [facility], [facility] [address] 05/19/2020 12:00:00 AM EDT eCW1 ([facility]) Office Visit, Est Pt., Level 3 PC [address] [place] [address] 05/12/2020 12:00:00 AM EST eCW1 ([facility]) Office Visit, Est Pt., Level 4 PC [address] [place] [address] 03/30/2020 12:00:00 AM EST eCW1 ([facility]) Unknown [address] [facility], [facility] [address] 02/11/2020 12:00:00 AM EST eCW1 ([facility]) Office Visit, Est Pt., Level 4 PC [address] [place] [address] 2020 12:00:00 AM EST eCW1 ([facility]) Unknown [address] [facility], [facility] [address] 01/14/2020 12:00:00 AM EST eCW1 ([facility]) Unknown [address] [facility] [address] 12/25/2019 12:00:00 AM EDT eCW1 ([facility]) Unknown [address] [facility] [address] 12/25/2019 12:00:00 AM EDT eCW1 ([facility]) Immunizations Vaccine Date Status Description Data Source(s) COVID-19 VACCINE Moderna 01/29/2021 12:00:00 AM EST completed [employer] Vaccine Series Complete: YESThis Data wa s Submitted to [facility] Via [employer]. influenza, recombinant, quadrIvalent,injectable, prese rvative free 12/22/2020 03:54:00 PM EDT completed eCW1 ([facility]) influenza, recombinant, quadrIvalent,injectable, prese rvative free 12/22/2020 03:54:00 PM EDT completed eCW1 ([facility]) COVID-19 dose #1 given elsewhere Unspecified 03/29/2020 03:0 1:00 PM EST completed eCW1 ([facility]) COVID-19 dose #1 given elsewhere Unspecified 03/29/2020 03:0 1:00 PM EST completed eCW1 ([facility]) COVID-19 dose #1 given elsewhere Unspecified 03/29/2020 03:0 1:00 PM EST completed eCW1 ([facility]) COVID-19 dose #1 given elsewhere Unspecified 03/29/2020 03:0 1:00 PM EST completed eCW1 ([facility]) COVID-19 dose #1 given elsewhere Unspecified 03/29/2020 03:0 1:00 PM EST completed eCW1 ([facility]) COVID-19 dose #1 given elsewhere Unspecified 03/29/2020 03:0 1:00 PM EST completed eCW1 ([facility]) COVID-19 dose #1 given elsewhere Unspecified 03/29/2020 03:0 1:00 PM EST completed eCW1 ([facility]) COVID-19 dose #1 given elsewhere Unspecified 03/29/2020 03:0 1:00 PM EST completed eCW1 ([facility]) COVID-19 dose #1 given elsewhere Unspecified 03/29/2020 03:0 1:00 PM EST completed eCW1 ([facility]) COVID-19 dose #1 given elsewhere Unspecified 03/29/2020 03:0 1:00 PM EST completed eCW1 ([facility]) COVID-19(given elsewhere) Unspecified 03/29/2020 03:01:00 PM EST co mpleted eCW1 ([facility]) COVID-19 dose #1 given elsewhere Unspecified 03/29/2020 03:0 1:00 PM EST completed eCW1 ([facility]) COVID-19 dose #1 given elsewhere Unspecified 03/29/2020 03:0 1:00 PM EST completed eCW1 ([facility]) COVID-19 dose #1 given elsewhere Unspecified 03/29/2020 03:0 1:00 PM EST completed eCW1 ([facility]) COVID-19 dose #1 given elsewhere Unspecified 03/29/2020 03:0 1:00 PM EST completed eCW1 ([facility]) COVID-19 dose #1 given elsewhere Unspecified 03/29/2020 03:0 1:00 PM EST completed eCW1 ([facility]) COVID-19 dose #1 given elsewhere Unspecified 03/29/2020 03:0 1:00 PM EST completed eCW1 ([facility]) COVID-19 dose #1 given elsewhere Unspecified 03/29/2020 03:0 1:00 PM EST completed eCW1 ([facility]) COVID-19 dose #1 given elsewhere Unspecified 03/29/2020 03:0 1:00 PM EST completed eCW1 ([facility]) COVID-19 dose #1 given elsewhere Unspecified 03/29/2020 03:0 1:00 PM EST completed eCW1 ([facility]) COVID-19 dose #1 given elsewhere Unspecified 03/29/2020 03:0 1:00 PM EST completed eCW1 ([facility]) COVID-19 dose #1 given elsewhere Unspecified 03/29/2020 03:0 1:00 PM EST completed eCW1 ([facility]) COVID-19 dose #1 given elsewhere Unspecified 03/29/2020 03:0 1:00 PM EST completed eCW1 ([facility]) COVID-19 VACCINE Moderna 03/29/2020 12:00:00 AM EST completed [employer] Vaccine Series Complete: YESThis Data wa s Submitted to [facility] Via [employer]. COVID-19 dose #1 given elsewhere Unspecified 03/08/2020 03:0 1:00 PM EST completed eCW1 ([facility]) COVID-19 dose #1 given elsewhere Unspecified 03/08/2020 03:0 1:00 PM EST completed eCW1 ([facility]) COVID-19 dose #1 given elsewhere Unspecified 03/08/2020 03:0 1:00 PM EST completed eCW1 ([facility]) COVID-19 dose #1 given elsewhere Unspecified 03/08/2020 03:0 1:00 PM EST completed eCW1 ([facility]) COVID-19 dose #1 given elsewhere Unspecified 03/08/2020 03:0 1:00 PM EST completed eCW1 ([facility]) COVID-19 dose #1 given elsewhere Unspecified 03/08/2020 03:0 1:00 PM EST completed eCW1 ([facility]) COVID-19 dose #1 given elsewhere Unspecified 03/08/2020 03:0 1:00 PM EST completed eCW1 ([facility]) COVID-19 dose #1 given elsewhere Unspecified 03/08/2020 03:0 1:00 PM EST completed eCW1 ([facility]) COVID-19 dose #1 given elsewhere Unspecified 03/08/2020 03:0 1:00 PM EST completed eCW1 ([facility]) COVID-19 dose #1 given elsewhere Unspecified 03/08/2020 03:0 1:00 PM EST completed eCW1 ([facility]) COVID-19(given elsewhere) Unspecified 03/08/2020 03:01:00 PM EST co mpleted eCW1 ([facility]) COVID-19 dose #1 given elsewhere Unspecified 03/08/2020 03:0 1:00 PM EST completed eCW1 ([facility]) COVID-19 dose #1 given elsewhere Unspecified 03/08/2020 03:0 1:00 PM EST completed eCW1 ([facility]) COVID-19 dose #1 given elsewhere Unspecified 03/08/2020 03:0 1:00 PM EST completed eCW1 ([facility]) COVID-19 dose #1 given elsewhere Unspecified 03/08/2020 03:0 1:00 PM EST completed eCW1 ([facility]) COVID-19 dose #1 given elsewhere Unspecified 03/08/2020 03:0 1:00 PM EST completed eCW1 ([facility]) COVID-19 dose #1 given elsewhere Unspecified 03/08/2020 03:0 1:00 PM EST completed eCW1 ([facility]) COVID-19 dose #1 given elsewhere Unspecified 03/08/2020 03:0 1:00 PM EST completed eCW1 ([facility]) COVID-19 dose #1 given elsewhere Unspecified 03/08/2020 03:0 1:00 PM EST completed eCW1 ([facility]) COVID-19 dose #1 given elsewhere Unspecified 03/08/2020 03:0 1:00 PM EST completed eCW1 ([facility]) COVID-19 dose #1 given elsewhere Unspecified 03/08/2020 03:0 1:00 PM EST completed eCW1 ([facility]) COVID-19 dose #1 given elsewhere Unspecified 03/08/2020 03:0 1:00 PM EST completed eCW1 ([facility]) COVID-19 dose #1 given elsewhere Unspecified 03/08/2020 03:0 1:00 PM EST completed eCW1 ([facility]) COVID-19 VACCINE Moderna 03/01/2020 12:00:00 AM EST completed [facility] Vaccine Series Complete: NOThis Data was Submitted to [facility] Via [employer]. INFLUENZA VIRUS VACCINE QUADRIVAL SPLIT 2019-(65 YR UP)/PF 12/10/2019 12:00:00 AM EDT completed [facility] Medications Medication Brand Name Start Date Product Form Dose Route Admi nistrative Instructions Pharmacy Instructions Status Indications Reaction Description Data Source(s) 100 mcg/0.5 mL 01/29/2021 12:00:00 AM EST suspension 0 INJECT DIRECTED PER STANDING ORDER 3 INJECT DIRECTED PER STANDING ORDER 3 SOLD: 01/29/2021 [facility] 20 mg 01/28/2021 12:00:00 AM EST tablet 18 TAKE 1 TABLET THREE TIMES A DAY FOR 3 DAYS THEN 1 TWO TIMES A DAY FOR 3 DAYS THEN 1 DAILY FOR 3 DAYS TAKE 1 TABLET THREE TIMES A DAY FOR 3 DAYS THEN 1 TWO TIMES A DAY FOR 3 DAYS THEN 1 DAILY FOR 3 DAYS SOLD: 01/28/2021 [facility] 100 mg 01/28/2021 12:00:00 AM EST capsule 20 TAKE ONE CAPSULE BY MOUTH TWICE A DAY FOR 10 DAYS TAKE ONE CAPSULE BY MOUTH TWICE A DAY FOR 10 DAYS SOLD : 01/28/2021 [facility] Doxycycline Monohydrate 100 MG Oral Capsule Doxycycline [place] hydrate 01/27/2021 12:00:00 AM EST ORAL active M EDENT ([facility], [facility]) 200 ACTUAT Albuterol 0.09 MG/ACTUAT Metered Dose Inhal er [Proventil] Proventil HFA 01/27/2021 12:00:00 AM EST active MEDENT ([facility]) Prednisone 20 MG Oral Tablet Prednisone 01/27/2021 12:00:00 AM EST active MEDENT ([facility]) ferrous sulfate 325 MG Delayed Release O ral Tablet Ferrous Sulfate 325 (65 Fe) MG Ferrous Sulfate 325 (65 Fe) MG 01/10/2021 12:00:00 AM EST 1. 0 {tablet} active Ferrous Sulfate 325 (65 Fe) MG eCW1 ([facility]) Docusate Sodium 100 MG Oral Capsule [Colace] Colace 100 MG C olace 100 MG 01/10/2021 12:00:00 AM EST 1.0 {capsule_as_needed} active Colace 100 MG eCW1 ([facility]) 30 ACTUAT fluticasone furoate 0.1 MG/ACT UAT / umeclidinium 0.0625 MG/ACTUAT / vilanterol 0.025 MG/ACTUAT Dry Powder Inhaler [Trelegy] 100-62.5-25 mcg FLUTICASONE/UMECLIDIN/VILANTER 01/10/2021 12:00:00 AM EST blister with device 60 INHALE ONE PUFF BY MOUTH EVERY DAY INHALE ONE PU FF BY MOUTH EVERY DAY SOLD: 01/11/2021 [facility] Trelegy Ellipta 100-62.5-25 MCG/INH Trelegy Ellipta 100-62.5 -25 MCG/INH 01/10/2021 12:00:00 AM EST 1.0 {puff} active Trelegy Ellipta 100-62.5-25 MCG/INH eCW1 ([facility]) Amoxicillin 875 MG / Clavulanate 125 MG Oral Tablet Am oxicillin/Clavulanate Potassium 01/07/2021 12:00:00 AM EDT ORAL completed MEDENT ([facility]) benzonatate 200 MG Oral Capsule Benzonatate 01/07/2021 12:00:00 AM EDT ORAL completed MEDENT ([facility]) Prednisone 10 MG Oral Tablet Prednisone 01/07/2021 12:00:00 AM EDT ORAL completed MEDENT ([facility]) Amoxicillin 875 MG / Clavulanate 125 MG Oral Tablet 87 5-125 mg AMOXICILLIN/POTASSIUM CLAV 01/07/2021 12:00:00 AM EDT tablet 14 TAKE ONE TABLET BY MOUTH TWICE A DAY FOR 7 DAYS TAKE ONE TABLET BY MOUTH TWICE A DAY FOR 7 DAYS SOLD: 01/07/2021 [facility] 10 mg 01/07/2021 12:00:00 AM EDT tablet 30 TAKE 4 TABLETS BY MOUTH DAILY ON DAYS 1-3, 3 TABLETS DAILY ON DAYS 4-6, 2 TABLETS DAILY ON DAYS 7-9 AND 1 TABLET DAILY ON DAYS 10-12 TAKE 4 TABLETS BY MOUTH DAILY ON DAYS 1- 3, 3 TABLETS DAILY ON DAYS 4-6, 2 TABLETS DAILY ON DAYS 7-9 AND 1 TABLET DAILY ON DAYS 10-12 SOLD: 01/07/2021 [facility] 200 mg 01/07/2021 12:00:00 AM EDT capsule 20 TAKE ONE CAPSULE BY MOUTH THREE TIMES A DAY NEEDED FOR DRY COUGH TAKE ONE CAPSULE BY MOUTH THREE TIMES A DAY NEEDED FOR DRY COUGH SOLD: 01/07/2021 [facility] 0.4 mg 12/29/2020 12:00:00 AM EDT capsule 60 TAKE TWO CAPSULES BY MOUTH EVERY DAY IN THE EVENING TAKE TWO CAPSULES BY MOUTH EVERY DAY IN THE EVENING SOLD: 02/05/2021 [facility] 0.4 mg 12/29/2020 12:00:00 AM EDT capsule 60 TAKE TWO CAPSULES BY MOUTH EVERY DAY IN THE EVENING TAKE TWO CAPSULES BY MOUTH EVERY DAY IN THE EVENING SOLD: 12/30/2020 [facility] 500 mg 12/29/2020 12:00:00 AM EDT tablet 14 TAKE ONE TABLET BY MOUTH EVERY 12 HOURS FOR 7 DAYS TAKE ONE TABLET BY MOUTH EVERY 12 HOURS FOR 7 DAYS LIGIA [facility] 0.4 mg 11/18/2020 12:00:00 AM EDT capsule 30 TAKE ONE CAPSULE BY MOUTH EVERY DAY TAKE ONE CAPSULE BY MOUTH EVERY DAY SOLD: 11/19/2020 [facility] 0.4 mg 11/18/2020 12:00:00 AM EDT capsule 30 TAKE ONE CAPSULE BY MOUTH EVERY DAY TAKE ONE CAPSULE BY MOUTH EVERY DAY SOLD: 12/11/2020 [facility] Tamsulosin hydrochloride 0.4 MG Oral Cap kwaku Tamsulosin HCl 0.4 MG Oral Capsule (FLOMAX) Tamsulosin HCl 0.4 MG Oral Capsule (FLOMAX) 11/17/2020 12:00 :00 AM EDT [facility] Tamsulosin hydrochloride 0.4 MG Oral Capsule [Flomax] Flomax 0.4 MG Flomax 0.4 MG 11/17/2020 12:00:00 AM EDT 1.0 {capsule} active Flomax 0.4 MG eCW1 ([facility]) Tamsulosin hydrochloride 0.4 MG Oral Capsule [Flomax] Flomax 0.4 MG Flomax 0.4 MG 11/17/2020 12:00:00 AM EDT 1.0 {capsule} active Flomax 0.4 MG eCW1 ([facility]) Tamsulosin hydrochloride 0.4 MG Oral Capsule [Flomax] Flomax 0.4 MG Flomax 0.4 MG 11/17/2020 12:00:00 AM EDT 1.0 {capsule} active Flomax 0.4 MG eCW1 ([facility]) Tamsulosin hydrochloride 0.4 MG Oral Capsule [Flomax] Flomax 0.4 MG Flomax 0.4 MG 11/17/2020 12:00:00 AM EDT 1.0 {capsule} active Flomax 0.4 MG eCW1 ([facility]) Tamsulosin hydrochloride 0.4 MG Oral Capsule [Flomax] Flomax 0.4 MG Flomax 0.4 MG 11/17/2020 12:00:00 AM EDT 1.0 {capsule} active Flomax 0.4 MG eCW1 ([facility]) Tamsulosin hydrochloride 0.4 MG Oral Capsule [Flomax] Flomax 0.4 MG Flomax 0.4 MG 11/17/2020 12:00:00 AM EDT 1.0 {capsule} active Flomax 0.4 MG eCW1 ([facility]) Tamsulosin hydrochloride 0.4 MG Oral Capsule [Flomax] Flomax 0.4 MG Flomax 0.4 MG 11/17/2020 12:00:00 AM EDT 1.0 {capsule} active Flomax 0.4 MG eCW1 ([facility]) Tamsulosin hydrochloride 0.4 MG Oral Capsule [Flomax] Flomax 0.4 MG Flomax 0.4 MG 11/17/2020 12:00:00 AM EDT 1.0 {capsule} active Flomax 0.4 MG eCW1 ([facility]) Fluorouracil 50 MG/ML Topical Cream Fluorouracil 5 % Fluorou racil 5 % 11/10/2020 12:00:00 AM EDT 1.0 {application} active Fluorouracil 5 % eCW1 ([facility]) Fluorouracil 50 MG/ML Topical Cream Fluorouracil 5 % Fluorou racil 5 % 11/10/2020 12:00:00 AM EDT 1.0 {application} active Fluorouracil 5 % eCW1 ([facility]) Fluorouracil 50 MG/ML Topical Cream Fluorouracil 5 % Fluorou racil 5 % 11/10/2020 12:00:00 AM EDT 1.0 {application} active Fluorouracil 5 % eCW1 ([facility]) Fluorouracil 50 MG/ML Topical Cream Fluorouracil 5 % Fluorou racil 5 % 11/10/2020 12:00:00 AM EDT 1.0 {application} active Fluorouracil 5 % eCW1 ([facility]) Fluorouracil 50 MG/ML Topical Cream Fluorouracil 5 % Fluorou racil 5 % 11/10/2020 12:00:00 AM EDT 1.0 {application} active Fluorouracil 5 % eCW1 ([facility]) Fluorouracil 50 MG/ML Topical Cream Fluorouracil 5 % Fluorou racil 5 % 11/10/2020 12:00:00 AM EDT 1.0 {application} active Fluorouracil 5 % eCW1 ([facility]) 5 % 11/10/2020 12:00:00 AM EDT cream 40 APPLY TO AFFECTED AREA(S) TWO TIMES A DAY FOR 2 WEEKS APPLY TO AFFECTED AREA(S) TWO TIMES A DAY FOR 2 WEEKS SOLD: 11/17/2020 [facility] Fluorouracil 50 MG/ML Topical Cream Fluorouracil 5 % Fluorou racil 5 % 11/10/2020 12:00:00 AM EDT 1.0 {application} active Fluorouracil 5 % eCW1 ([facility]) Fluorouracil 50 MG/ML Topical Cream Fluorouracil 5 % Fluorou racil 5 % 11/10/2020 12:00:00 AM EDT 1.0 {application} active Fluorouracil 5 % eCW1 ([facility]) Fluorouracil 50 MG/ML Topical Cream Fluorouracil 5 % Fluorou racil 5 % 11/10/2020 12:00:00 AM EDT 1.0 {application} active Fluorouracil 5 % eCW1 ([facility]) Fluorouracil 50 MG/ML Topical Cream Fluorouracil 5 % Fluorou racil 5 % 11/10/2020 12:00:00 AM EDT 1.0 {application} active Fluorouracil 5 % eCW1 ([facility]) Fluorouracil 50 MG/ML Topical Cream Fluorouracil 5 % Fluorou racil 5 % 11/10/2020 12:00:00 AM EDT 1.0 {application} active Fluorouracil 5 % eCW1 ([facility]) Losartan Potassium 50 MG Oral Tablet Los tammy Potassium 50 MG Oral Tablet (COZAAR) Losartan Potassium 50 MG Oral Tablet (COZAAR) 11/01/19 12:00:00 AM EDT 50 mg Oral active Take 50 mg by murali th daily [facility] 0.3-0.1 % 10/20/2020 12:00:00 AM EDT drops,suspension 7 INSTILL 4 DROPS IN THE RIGHT EAR TWO TIMES A DAY FOR 7 DAYS INSTILL 4 DROPS IN THE RIGHT EAR TWO TIMES A DAY FOR 7 DAYS SOLD: 10/20/2020 [facility] Amoxicillin 875 MG / Clavulanate 125 MG Oral Tablet 87 5-125 mg AMOXICILLIN/POTASSIUM CLAV 10/20/2020 12:00:00 AM EDT tablet 14 TAKE ONE TABLET BY MOUTH TWICE A DAY FOR 7 DAYS TAKE ONE TABLET BY MOUTH TWICE A DAY FOR 7 DAYS SOLD: 10/20/2020 [facility] Ciprofloxacin 3 MG/ML / Dexamethasone 1 MG/ML Otic Ene pension [Ciprodex] Ciprodex 10/20/2020 12:00:00 AM EDT AURICULAR completed MEDENT ([facility], [facility]) Amoxicillin 875 MG / Clavulanate 125 MG Oral Tablet Am oxicillin/Clavulanate Potassium 10/20/2020 12:00:00 AM EDT ORAL completed MEDENT ([facility], [facility]) Albuterol Sulfate HFA 108 (90 Base) MCG/ ACT Inhalation Aerosol Solution (PROVENTIL HFA) 4966-8398-87 09/29/2020 12:00:00 AM EDT active INHALE ONE PUFF BY MOUTH EVERY 4 HOURS NEEDED FOR SHORTNESS OF BREATH [facility] 62.5 mcg/actuation 09/29/2020 12:00:00 AM EDT blister with d evice 30 INHALE ONE PUFF BY MOUTH EVERY DAY INHALE ONE PUFF BY MOUTH EVERY DAY SOLD: 11/27/2020 [facility] 90 mcg/actuation 09/29/2020 12:00:00 AM EDT HFA aerosol inha ler 8 INHALE ONE PUFF BY MOUTH EVERY 4 HOURS NEEDED FOR SHORTNESS OF BREATH INHALE ONE PUFF BY MOUTH EVERY 4 HOURS NEEDED FOR SHORTNESS OF BREATH SOLD: 11/27/2020 [facility] 50 mg 09/29/2020 12:00:00 AM EDT tablet 30 TAKE ONE TABLET BY MOUTH EVERY DAY TAKE ONE TABLET BY MOUTH EVERY DAY SOLD: 11/01/2020 [facility] 50 mg 09/29/2020 12:00:00 AM EDT tablet 30 TAKE ONE TABLET BY MOUTH EVERY DAY TAKE ONE TABLET BY MOUTH EVERY DAY SOLD: 12/10/2020 [facility] Rosuvastatin calcium 40 MG Oral Tablet ROSUVASTATIN CALCIUM 09/29/2020 12:00:00 AM EDT tablet 30 TAKE ONE TABLET BY MOUTH JEN DAY TAKE ONE TABLET BY MOUTH EVERY DAY SOLD: 01/10/2021 [facility] Rosuvastatin calcium 40 MG Oral Tablet ROSUVASTATIN CALCIUM 09/29/2020 12:00:00 AM EDT tablet 30 TAKE ONE TABLET BY MOUTH JEN DAY TAKE ONE TABLET BY MOUTH EVERY DAY SOLD: 09/30/2020 [facility] Rosuvastatin calcium 40 MG Oral Tablet ROSUVASTATIN CALCIUM 09/29/2020 12:00:00 AM EDT tablet 30 TAKE ONE TABLET BY MOUTH JEN DAY TAKE ONE TABLET BY MOUTH EVERY DAY SOLD: 12/14/2020 [facility] 50 mg 09/29/2020 12:00:00 AM EDT tablet 30 TAKE ONE TABLET BY MOUTH EVERY DAY TAKE ONE TABLET BY MOUTH EVERY DAY SOLD: 01/09/2021 [facility] Rosuvastatin calcium 40 MG Oral Tablet ROSUVASTATIN CALCIUM 09/29/2020 12:00:00 AM EDT tablet 30 TAKE ONE TABLET BY MOUTH JEN RY DAY TAKE ONE TABLET BY MOUTH EVERY DAY SOLD: 11/01/2020 [facility] 62.5 mcg/actuation 09/29/2020 12:00:00 AM EDT blister with d evice 30 INHALE ONE PUFF BY MOUTH EVERY DAY INHALE ONE PUFF BY MOUTH EVERY DAY SOLD: 09/30/2020 [facility] 62.5 mcg/actuation 09/29/2020 12:00:00 AM EDT blister with d evice 30 INHALE ONE PUFF BY MOUTH EVERY DAY INHALE ONE PUFF BY MOUTH EVERY DAY SOLD: 12/26/2020 [facility] 90 mcg/actuation 09/29/2020 12:00:00 AM EDT HFA aerosol inha ler 8 INHALE ONE PUFF BY MOUTH EVERY 4 HOURS NEEDED FOR SHORTNESS OF BREATH INHALE ONE PUFF BY MOUTH EVERY 4 HOURS NEEDED FOR SHORTNESS OF BREATH SOLD: 09/30/2020 [facility] 50 mg 09/29/2020 12:00:00 AM EDT tablet 30 TAKE ONE TABLET BY MOUTH EVERY DAY TAKE ONE TABLET BY MOUTH EVERY DAY SOLD: 02/05/2021 [facility] 90 mcg/actuation 09/29/2020 12:00:00 AM EDT HFA aerosol inha ler 8 INHALE ONE PUFF BY MOUTH EVERY 4 HOURS NEEDED FOR SHORTNESS OF BREATH INHALE ONE PUFF BY MOUTH EVERY 4 HOURS NEEDED FOR SHORTNESS OF BREATH SOLD: 12/26/2020 [facility] 1,250 mcg (50,000 unit) 09/29/2020 12:00:00 AM EDT capsule 3 TAKE ONE CAPSULE BY MOUTH MONTHLY TAKE ONE CAPSULE BY MOUTH MONTHLY SOLD: 12/10/2020 [facility] 90 mcg/actuation 09/29/2020 12:00:00 AM EDT HFA aerosol inha ler 8 INHALE ONE PUFF BY MOUTH EVERY 4 HOURS NEEDED FOR SHORTNESS OF BREATH INHALE ONE PUFF BY MOUTH EVERY 4 HOURS NEEDED FOR SHORTNESS OF BREATH SOLD: 01/28/2021 [facility] Rosuvastatin calcium 40 MG Oral Tablet ROSUVASTATIN CALCIUM 09/29/2020 12:00:00 AM EDT tablet 30 TAKE ONE TABLET BY MOUTH EJN DAY TAKE ONE TABLET BY MOUTH EVERY DAY SOLD: 02/05/2021 [facility] 50 mg 09/29/2020 12:00:00 AM EDT tablet 30 TAKE ONE TABLET BY MOUTH EVERY DAY TAKE ONE TABLET BY MOUTH EVERY DAY SOLD: 09/30/2020 [facility] 1,250 mcg (50,000 unit) 09/29/2020 12:00:00 AM EDT capsule 3 TAKE ONE CAPSULE BY MOUTH MONTHLY TAKE ONE CAPSULE BY MOUTH MONTHLY SOLD: 09/30/2020 [facility] 7 ACTUAT umeclidinium 0.0625 MG/ACTUAT D ry Powder Inhaler [Incruse] Incruse Ellipta 62.5 MCG/INH Incruse Ellipta 62.5 MCG/INH 09/28/2020 12:00:00 AM EDT 1.0 {puff} active Incruse Ellipta 62.5 MCG/INH eCW1 ([facility]) 200 ACTUAT Albuterol 0.09 MG/ACTUAT Mete red Dose Inhaler [Ventolin] Ventolin HFA 108 (90 Base) MCG/ACT Ventolin HFA 108 (90 Base) MCG/ACT 09/28/2020 12:00:00 AM EDT 1.0 {puff_as_needed} active Leo tolin HFA 108 (90 Base) MCG/ACT eCW1 ([facility]) Losartan Potassium 50 MG Oral Tablet Losartan Potassium 50 M G 09/28/2020 12:00:00 AM EDT 1.0 {tablet} active Lo sartan Potassium 50 MG eCW1 ([facility]) 7 ACTUAT umeclidinium 0.0625 MG/ACTUAT D ry Powder Inhaler [Incruse] Incruse Ellipta 62.5 MCG/INH Incruse Ellipta 62.5 MCG/INH 09/28/2020 12:00:00 AM EDT 1.0 {puff} active Incruse Ellipta 62.5 MCG/INH eCW1 ([facility]) 7 ACTUAT umeclidinium 0.0625 MG/ACTUAT D ry Powder Inhaler [Incruse] Incruse Ellipta 62.5 MCG/INH Incruse Ellipta 62.5 MCG/INH 09/28/2020 12:00:00 AM EDT 1.0 {puff} active Incruse Ellipta 62.5 MCG/INH eCW1 ([facility]) 7 ACTUAT umeclidinium 0.0625 MG/ACTUAT D ry Powder Inhaler [Incruse] Incruse Ellipta 62.5 MCG/INH Incruse Ellipta 62.5 MCG/INH 09/28/2020 12:00:00 AM EDT 1.0 {puff} active Incruse Ellipta 62.5 MCG/INH eCW1 ([facility]) 7 ACTUAT umeclidinium 0.0625 MG/ACTUAT D ry Powder Inhaler [Incruse] Incruse Ellipta 62.5 MCG/INH Incruse Ellipta 62.5 MCG/INH 09/28/2020 12:00:00 AM EDT 1.0 {puff} active Incruse Ellipta 62.5 MCG/INH eCW1 ([facility]) Losartan Potassium 50 MG Oral Tablet Losartan Potassium 50 M G 09/28/2020 12:00:00 AM EDT 1.0 {tablet} active Lo sartan Potassium 50 MG eCW1 ([facility]) 7 ACTUAT umeclidinium 0.0625 MG/ACTUAT D ry Powder Inhaler [Incruse] Incruse Ellipta 62.5 MCG/INH Incruse Ellipta 62.5 MCG/INH 09/28/2020 12:00:00 AM EDT 1.0 {puff} active Incruse Ellipta 62.5 MCG/INH eCW1 ([facility]) 200 ACTUAT Albuterol 0.09 MG/ACTUAT Mete red Dose Inhaler [Ventolin] Ventolin HFA 108 (90 Base) MCG/ACT Ventolin HFA 108 (90 Base) MCG/ACT 09/28/2020 12:00:00 AM EDT 1.0 {puff_as_needed} active Leo tolin HFA 108 (90 Base) MCG/ACT eCW1 ([facility]) Losartan Potassium 50 MG Oral Tablet Losartan Potassium 50 M G 09/28/2020 12:00:00 AM EDT 1.0 {tablet} active Lo sartan Potassium 50 MG eCW1 ([facility]) 7 ACTUAT umeclidinium 0.0625 MG/ACTUAT D ry Powder Inhaler [Incruse] Incruse Ellipta 62.5 MCG/INH Incruse Ellipta 62.5 MCG/INH 09/28/2020 12:00:00 AM EDT 1.0 {puff} active Incruse Ellipta 62.5 MCG/INH eCW1 ([facility]) Losartan Potassium 50 MG Oral Tablet Losartan Potassium 50 M G 09/28/2020 12:00:00 AM EDT 1.0 {tablet} active Lo sartan Potassium 50 MG eCW1 ([facility]) 200 ACTUAT Albuterol 0.09 MG/ACTUAT Mete red Dose Inhaler [Ventolin] Ventolin HFA 108 (90 Base) MCG/ACT Ventolin HFA 108 (90 Base) MCG/ACT 09/28/2020 12:00:00 AM EDT 1.0 {puff_as_needed} active Leo tolin HFA 108 (90 Base) MCG/ACT eCW1 ([facility]) 200 ACTUAT Albuterol 0.09 MG/ACTUAT Mete red Dose Inhaler [Ventolin] Ventolin HFA 108 (90 Base) MCG/ACT Ventolin HFA 108 (90 Base) MCG/ACT 09/28/2020 12:00:00 AM EDT 1.0 {puff_as_needed} active Leo tolin HFA 108 (90 Base) MCG/ACT eCW1 ([facility]) Losartan Potassium 50 MG Oral Tablet Losartan Potassium 50 M G 09/28/2020 12:00:00 AM EDT 1.0 {tablet} active Lo sartan Potassium 50 MG eCW1 ([facility]) 7 ACTUAT umeclidinium 0.0625 MG/ACTUAT D ry Powder Inhaler [Incruse] Incruse Ellipta 62.5 MCG/INH Incruse Ellipta 62.5 MCG/INH 09/28/2020 12:00:00 AM EDT 1.0 {puff} active Incruse Ellipta 62.5 MCG/INH eCW1 ([facility]) 200 ACTUAT Albuterol 0.09 MG/ACTUAT Mete red Dose Inhaler [Ventolin] Ventolin HFA 108 (90 Base) MCG/ACT Ventolin HFA 108 (90 Base) MCG/ACT 09/28/2020 12:00:00 AM EDT 1.0 {puff_as_needed} active Leo tolin HFA 108 (90 Base) MCG/ACT eCW1 ([facility]) 7 ACTUAT umeclidinium 0.0625 MG/ACTUAT D ry Powder Inhaler [Incruse] Incruse Ellipta 62.5 MCG/INH Incruse Ellipta 62.5 MCG/INH 09/28/2020 12:00:00 AM EDT 1.0 {puff} active eCW1 ([facility]) Losartan Potassium 50 MG Oral Tablet Losartan Potassium 50 M G 09/28/2020 12:00:00 AM EDT 1.0 {tablet} active eCW1 ([facility]) Losartan Potassium 50 MG Oral Tablet Losartan Potassium 50 M G 09/28/2020 12:00:00 AM EDT 1.0 {tablet} active Lo sartan Potassium 50 MG eCW1 ([facility]) 200 ACTUAT Albuterol 0.09 MG/ACTUAT Mete red Dose Inhaler [Ventolin] Ventolin HFA 108 (90 Base) MCG/ACT Ventolin HFA 108 (90 Base) MCG/ACT 09/28/2020 12:00:00 AM EDT 1.0 {puff_as_needed} active Leo tolin HFA 108 (90 Base) MCG/ACT eCW1 ([facility]) 7 ACTUAT umeclidinium 0.0625 MG/ACTUAT D ry Powder Inhaler [Incruse] Incruse Ellipta 62.5 MCG/INH Incruse Ellipta 62.5 MCG/INH 09/28/2020 12:00:00 AM EDT 1.0 {puff} active Incruse Ellipta 62.5 MCG/INH eCW1 ([facility]) 7 ACTUAT umeclidinium 0.0625 MG/ACTUAT D ry Powder Inhaler [Incruse] Incruse Ellipta 62.5 MCG/INH Incruse Ellipta 62.5 MCG/INH 09/28/2020 12:00:00 AM EDT 1.0 {puff} active Incruse Ellipta 62.5 MCG/INH eCW1 ([facility]) 200 ACTUAT Albuterol 0.09 MG/ACTUAT Mete red Dose Inhaler [Ventolin] Ventolin HFA 108 (90 Base) MCG/ACT Ventolin HFA 108 (90 Base) MCG/ACT 09/28/2020 12:00:00 AM EDT 1.0 {puff_as_needed} active Leo tolin HFA 108 (90 Base) MCG/ACT eCW1 ([facility]) 200 ACTUAT Albuterol 0.09 MG/ACTUAT Mete red Dose Inhaler [Ventolin] Ventolin HFA 108 (90 Base) MCG/ACT Ventolin HFA 108 (90 Base) MCG/ACT 09/28/2020 12:00:00 AM EDT 1.0 {puff_as_needed} active Leo tolin HFA 108 (90 Base) MCG/ACT eCW1 ([facility]) Losartan Potassium 50 MG Oral Tablet Losartan Potassium 50 M G 09/28/2020 12:00:00 AM EDT 1.0 {tablet} active Lo sartan Potassium 50 MG eCW1 ([facility]) Losartan Potassium 50 MG Oral Tablet Losartan Potassium 50 M G 09/28/2020 12:00:00 AM EDT 1.0 {tablet} active Lo sartan Potassium 50 MG eCW1 ([facility]) Losartan Potassium 50 MG Oral Tablet Losartan Potassium 50 M G 09/28/2020 12:00:00 AM EDT 1.0 {tablet} active Lo sartan Potassium 50 MG eCW1 ([facility]) Losartan Potassium 50 MG Oral Tablet Losartan Potassium 50 M G 09/28/2020 12:00:00 AM EDT 1.0 {tablet} active Lo sartan Potassium 50 MG eCW1 ([facility]) Losartan Potassium 50 MG Oral Tablet Losartan Potassium 50 M G 09/28/2020 12:00:00 AM EDT 1.0 {tablet} active Lo sartan Potassium 50 MG eCW1 ([facility]) 200 ACTUAT Albuterol 0.09 MG/ACTUAT Mete red Dose Inhaler [Ventolin] Ventolin HFA 108 (90 Base) MCG/ACT Ventolin HFA 108 (90 Base) MCG/ACT 09/28/2020 12:00:00 AM EDT 1.0 {puff_as_needed} active Leo tolin HFA 108 (90 Base) MCG/ACT eCW1 ([facility]) 7 ACTUAT umeclidinium 0.0625 MG/ACTUAT D ry Powder Inhaler [Incruse] Incruse Ellipta 62.5 MCG/INH Incruse Ellipta 62.5 MCG/INH 09/28/2020 12:00:00 AM EDT 1.0 {puff} active Incruse Ellipta 62.5 MCG/INH eCW1 ([facility]) 7 ACTUAT umeclidinium 0.0625 MG/ACTUAT D ry Powder Inhaler [Incruse] Incruse Ellipta 62.5 MCG/INH Incruse Ellipta 62.5 MCG/INH 09/28/2020 12:00:00 AM EDT 1.0 {puff} active Incruse Ellipta 62.5 MCG/INH eCW1 ([facility]) 200 ACTUAT Albuterol 0.09 MG/ACTUAT Mete red Dose Inhaler [Ventolin] Ventolin HFA 108 (90 Base) MCG/ACT Ventolin HFA 108 (90 Base) MCG/ACT 09/28/2020 12:00:00 AM EDT 1.0 {puff_as_needed} active Leo tolin HFA 108 (90 Base) MCG/ACT eCW1 ([facility]) 200 ACTUAT Albuterol 0.09 MG/ACTUAT Mete red Dose Inhaler [Ventolin] Ventolin HFA 108 (90 Base) MCG/ACT Ventolin HFA 108 (90 Base) MCG/ACT 09/28/2020 12:00:00 AM EDT 1.0 {puff_as_needed} active Leo tolin HFA 108 (90 Base) MCG/ACT eCW1 ([facility]) Losartan Potassium 50 MG Oral Tablet Losartan Potassium 50 M G 09/28/2020 12:00:00 AM EDT 1.0 {tablet} active Lo sartan Potassium 50 MG eCW1 ([facility]) Losartan Potassium 50 MG Oral Tablet Losartan Potassium 50 M G 09/28/2020 12:00:00 AM EDT 1.0 {tablet} active Lo sartan Potassium 50 MG eCW1 ([facility]) 200 ACTUAT Albuterol 0.09 MG/ACTUAT Mete red Dose Inhaler [Ventolin] Ventolin HFA 108 (90 Base) MCG/ACT Ventolin HFA 108 (90 Base) MCG/ACT 09/28/2020 12:00:00 AM EDT 1.0 {puff_as_needed} active eCW1 ([facility]) 200 ACTUAT Albuterol 0.09 MG/ACTUAT Mete red Dose Inhaler [Ventolin] Ventolin HFA 108 (90 Base) MCG/ACT Ventolin HFA 108 (90 Base) MCG/ACT 09/28/2020 12:00:00 AM EDT 1.0 {puff_as_needed} active Leo tolin HFA 108 (90 Base) MCG/ACT eCW1 ([facility]) 200 ACTUAT Albuterol 0.09 MG/ACTUAT Mete red Dose Inhaler [Ventolin] Ventolin HFA 108 (90 Base) MCG/ACT Ventolin HFA 108 (90 Base) MCG/ACT 09/28/2020 12:00:00 AM EDT 1.0 {puff_as_needed} active Leo tolin HFA 108 (90 Base) MCG/ACT eCW1 ([facility]) 5 mg 09/16/2020 12:00:00 AM EDT tablet 10 TAKE ONE TABLET BY MOUTH EVERY 12 HOURS NEEDED FOR MODERATE PAIN MAXIMUM DAILY DOSE = 4 TAKE ONE TABLET BY MOUTH EVERY 12 HOURS NEEDED FOR MODERATE PAIN MAXIMUM DAILY DOSE = 4 SOLD: 09/17/2020 [facility] carvedilol 6.25 MG Oral Tablet CARVEDILOL 07/23/2020 12:00:00 AM EDT tablet 60 TAKE ONE TABLET BY MOUTH TWICE A DAY HOLD FOR HR < 55, SBP <100 TAKE ONE TABLET BY MOUTH TWICE A DAY HOLD FOR HR < 55, SBP <100 SOLD: 07/24/2020 [facility] Isradipine 5 MG Oral Capsule ISRADIPINE 07/23/2020 12:00:00 AM EDT cap kwaku 60 TAKE ONE CAPSULE BY MOUTH TWICE A DAY HOLD FOR SBP < 130 TAKE ONE CAPSULE BY MOUTH TWICE A DAY HOLD FOR SBP < 130 SOLD: 07/24/2020 [facility] 50 mg 07/23/2020 12:00:00 AM EDT tablet 30 TAKE ONE TABLET BY MOUTH EVERY DAY HOLD FOR SBP < 115 TAKE ONE TABLET BY MOUTH EVERY DAY HOLD FOR SBP < 115 SOLD: 07/24/2020 [facility] 5 mg 07/22/2020 12:00:00 AM EDT tablet 20 TAKE ONE TABLET BY MOUTH EVERY 4 HOURS NEEDED FOR MODERATE PAIN. MAY ADMINISTER ANY ORDERED LOWER DOSE OR LESS POTENT ANALGESIC PER PATIENT REQUEST MAXIMUM DAILY DOSE = 6 TAKE ONE TABLET BY MOUTH EVERY 4 HOURS NEEDED FOR MODERATE PAIN. MAY ADMINISTER ANY ORDERED LOWER DOSE OR LESS POTENT ANALGESIC PER PATIENT REQUEST MAXIMUM DAILY DOSE = 6 SOLD: 07/24/2020 [facility] 0.4 mg 07/22/2020 12:00:00 AM EDT capsule 14 TAKE ONE CAPSULE BY MOUTH EVERY DAY TAKE ONE CAPSULE BY MOUTH EVERY DAY SOLD: 07/24/2020 [facility] Rosuvastatin calcium 40 MG Oral Tablet ROSUVASTATIN CALCIUM 06/14/2020 12:00:00 AM EDT tablet 30 TAKE ONE TABLET BY MOUTH JEN DAY TAKE ONE TABLET BY MOUTH EVERY DAY SOLD: 07/29/2020 [facility] Rosuvastatin calcium 40 MG Oral Tablet ROSUVASTATIN CALCIUM 06/14/2020 12:00:00 AM EDT tablet 30 TAKE ONE TABLET BY MOUTH JEN TAKE ONE TABLET BY MOUTH EVERY DAY SOLD: 08/24/2020 [facility] Rosuvastatin calcium 40 MG Oral Tablet ROSUVASTATIN CALCIUM 06/14/2020 12:00:00 AM EDT tablet 30 TAKE ONE TABLET BY MOUTH JEN DAY TAKE ONE TABLET BY MOUTH EVERY DAY SOLD: 06/16/2020 [facility] clopidogrel 75 MG Oral Tablet Clopidogrel Bisulfate 75 MG Oral Tablet (PLAVIX) Clopidogrel Bisulfate 75 MG Oral Tablet (PLAVIX) 06/13/2020 12:00:00 AM EDT active TAKE [address] [facility] 20 mg 06/06/2020 12:00:00 AM EDT tablet 20 TAKE 3 TABLETS BY MOUTH ONCE DAILY FOR 3 DAYS THEN 2 TABLETS DAILY FOR 4 DAYS THEN 1 TABLET DAILY FOR 3 DAYS TAKE 3 TABLETS BY MOUTH ONCE DAILY FOR 3 DAYS THEN 2 TABLETS DAILY FOR 4 DAYS THEN 1 TABLET DAILY FOR 3 DAYS SOLD: 06/06/2020 [facility] 17 mcg/actuation 06/06/2020 12:00:00 AM EDT HFA aerosol inha ler 12 INHALE 2 PUFFS BY MOUTH EVERY 6 HOURS NEEDED FOR COUGH INHALE 2 PUFFS BY MOUTH EVERY 6 HOURS NEEDED FOR COUGH SOLD: 06/06/2020 [facility] 100 mg 06/06/2020 12:00:00 AM EDT capsule 14 TAKE ONE CAPSULE BY MOUTH EVERY 12 HOURS TAKE ONE CAPSULE BY MOUTH EVERY 12 HOURS SOLD: 06/06/2020 [facility] 300 mg 06/06/2020 12:00:00 AM EDT capsule 14 TAKE ONE CAPSULE BY MOUTH TWICE A DAY TAKE ONE CAPSULE BY MOUTH TWICE A DAY SOLD: 06/06/2020 [facility] Doxycycline Monohydrate 100 MG Oral Tablet Doxycycline Monoh ydrate 05/30/2020 12:00:00 AM EDT ORAL completed MEDENT ([facility]) 100 mg 05/30/2020 12:00:00 AM EDT tablet 20 TAKE ONE TABLET BY MOUTH TWO TIMES A DAY FOR 10 DAYS TAKE ONE TABLET BY MOUTH TWO TIMES A DAY FOR 10 DAYS SOLD: 05/30/2020 [facility] 0.4 % 05/18/2020 12:00:00 AM EDT drops 5 INSTILL ONE DROP IN THE LEFT EYE FOUR TIMES A DAY STARTING THE DAY BEFORE SURGERY THEN CONTINUE AND TAPER DIRECTED FOR ONE MONTH INSTILL ONE DROP IN THE LEFT EYE FOUR TI MES A DAY STARTING THE DAY BEFORE SURGERY THEN CONTINUE AND TAPER DIRECTED FOR ONE MONTH SOLD: 07/14/2020 [facility] 1 % 05/18/2020 12:00:00 AM EDT drops,suspension 10 INSTILL ONE DROP IN THE LEFT EYE FOUR TIMES A DAY STARTING THE MORNING OF SURGERY THEN CONTINUE AND TAPER DIRECTED FOR 1 MONTH INSTILL ONE DROP IN THE LEFT EYE FOUR TI MES A DAY STARTING THE MORNING OF SURGERY THEN CONTINUE AND TAPER DIRECTED FOR 1 MONTH SOLD: 05/19/2020 [facility] 0.3 % 05/18/2020 12:00:00 AM EDT drops 5 INSTILL ONE DROP IN THE LEFT EYE FOUR TIMES A DAY STARTING THE DAY BEFORE SURGERY THEN CONTINUE FOUR TIMES A DAY FOR 1 WEEK AFTER SURGERY INSTILL ONE DROP IN THE LEFT EYE FOUR TI MES A DAY STARTING THE DAY BEFORE SURGERY THEN CONTINUE FOUR TIMES A DAY FOR 1 WEEK AFTER SURGERY SOLD: 07/14/2020 [facility] 0.4 % 05/18/2020 12:00:00 AM EDT drops 5 INSTILL ONE DROP IN THE LEFT EYE FOUR TIMES A DAY STARTING THE DAY BEFORE SURGERY THEN CONTINUE AND TAPER DIRECTED FOR ONE MONTH INSTILL ONE DROP IN THE LEFT EYE FOUR TI MES A DAY STARTING THE DAY BEFORE SURGERY THEN CONTINUE AND TAPER DIRECTED FOR ONE MONTH SOLD: 05/19/2020 [facility] 0.3 % 05/18/2020 12:00:00 AM EDT drops 5 INSTILL ONE DROP IN THE LEFT EYE FOUR TIMES A DAY STARTING THE DAY BEFORE SURGERY THEN CONTINUE FOUR TIMES A DAY FOR 1 WEEK AFTER SURGERY INSTILL ONE DROP IN THE LEFT EYE FOUR TI MES A DAY STARTING THE DAY BEFORE SURGERY THEN CONTINUE FOUR TIMES A DAY FOR 1 WEEK AFTER SURGERY SOLD: 05/19/2020 [facility] pantoprazole 40 MG Delayed Release Oral Tablet PANTOPRAZOLE SODIUM 03/31/2020 12:00:00 AM EST tablet,delayed release (DR/EC) 60 T [place] ONE TABLET BY MOUTH TWO TIMES A DAY TAKE ONE TABLET BY MOUTH TWO TIMES A DAY SOLD: 04/01/2020 [facility] 50 mg 01/22/2020 12:00:00 AM EST tablet 30 TAKE ONE TABLET BY MOUTH EVERY DAY TAKE ONE TABLET BY MOUTH EVERY DAY SOLD: 04/23/2020 [facility] 50 mg 01/22/2020 12:00:00 AM EST tablet 30 TAKE ONE TABLET BY MOUTH EVERY DAY TAKE ONE TABLET BY MOUTH EVERY DAY SOLD: 01/23/2020 [facility] 50 mg 01/22/2020 12:00:00 AM EST tablet 30 TAKE ONE TABLET BY MOUTH EVERY DAY TAKE ONE TABLET BY MOUTH EVERY DAY SOLD: 07/05/2020 [facility] 50 mg 01/22/2020 12:00:00 AM EST tablet 30 TAKE ONE TABLET BY MOUTH EVERY DAY TAKE ONE TABLET BY MOUTH EVERY DAY SOLD: 05/24/2020 [facility] Rosuvastatin calcium 40 MG Oral Tablet ROSUVASTATIN CALCIUM 12/26/2019 12:00:00 AM EDT tablet 30 TAKE ONE TABLET BY MOUTH TAKE ONE TABLET BY MOUTH EVERY DAY SOLD: 01/23/2020 [facility] Rosuvastatin calcium 40 MG Oral Tablet ROSUVASTATIN CALCIUM 12/26/2019 12:00:00 AM EDT tablet 30 TAKE ONE TABLET BY MOUTH JEN DAY TAKE ONE TABLET BY MOUTH EVERY DAY SOLD: 05/24/2020 [facility] Rosuvastatin calcium 40 MG Oral Tablet ROSUVASTATIN CALCIUM 12/26/2019 12:00:00 AM EDT tablet 30 TAKE ONE TABLET BY MOUTH JEN DAY TAKE ONE TABLET BY MOUTH EVERY DAY SOLD: 04/22/2020 [facility] Rosuvastatin calcium 40 MG Oral Tablet ROSUVASTATIN CALCIUM 12/26/2019 12:00:00 AM EDT tablet 30 TAKE ONE TABLET BY MOUTH JEN RY DAY TAKE ONE TABLET BY MOUTH EVERY DAY SOLD: 02/19/2020 [facility] Rosuvastatin calcium 40 MG Oral Tablet ROSUVASTATIN CALCIUM 12/26/2019 12:00:00 AM EDT tablet 30 TAKE ONE TABLET BY MOUTH TAKE ONE TABLET BY MOUTH EVERY DAY SOLD: 03/25/2020 [facility] Rosuvastatin calcium 40 MG Oral Tablet ROSUVASTATIN CALCIUM 12/26/2019 12:00:00 AM EDT tablet 30 TAKE ONE TABLET BY MOUTH TAKE ONE TABLET BY MOUTH EVERY DAY SOLD: 12/28/2019 [facility] 0.4 mg 07/15/2019 12:00:00 AM EDT tablet, sublingual 25 PLACE ONE TABLET UNDER THE TONGUE EVERY 5 MINUTES FOR UP TO 3 DOSES NEEDED FOR CHEST PAIN. IF CHEST PAIN STILL PERSISTS CONTACT [address] ONE TABLET UNDER THE TONGUE EVERY 5 MINUTES FOR UP TO 3 DOSES NEEDED FOR CHEST PAIN. IF CHEST PAIN STILL PERSISTS CONTACT 911 SOLD: 05/24/2020 [facility] 42 mcg (0.06 %) 05/08/2019 12:00:00 AM EST spray,non-aerosol 30 SPRAY TWO SPRAYS IN EACH NOSTRIL AT BEDTIME SPRAY TWO SPRAYS IN EACH NOSTRIL AT BEDTIME SOLD: 04/10/2020 [facility] Insurance Providers Payer name Policy type / Coverage type Policy ID Covered libertarian ID Covered libertarian's relationship to bruno Policy Bruno Plan Information [facility] [employer] [place] [id number] Self MEDICARE A [id number] Self [id number] N59 MEDICARE [id number] Ananya [id number] N59 MEDICARE [id number] Ananya [id number] A Special Funds (WC) Workers Compensation [id number] Self [facility] [employer] Organization ([facility] TNY2 [id number] Self [id number] BS [facility] [employer] Maintenance [facility] ([facility]) TNY2 [id number] Self [id number] BC/BS Of [employer] TKO [id number] Self [id number] [place] Commercial [id number] Self [id number] BS [facility] Health Maintenance Organization ([facility]) TNY2 [id number] Self [id number] BS [facility] Health [facility] Organization ([facility]) TNY2 [id number] Self [id number] BS [facility] Health Maintenance Organization ([facility]) [id number] Self BS [facility] Health [facility] Organization ([facility]) TNY2 [id number] Self [id number] [facility] [id number] Self [id number] BS [facility] Health Maintenance Organization ([facility]) TNY2 [id number] Self [id number] BS [facility] Health [facility] Organization ([facility]) TNY2 [id number] Self [id number] Medicare [place] Med[place] Part B [id number] Self 1 [id number] Medicare [place] Med[place]ap Part B [id number] Self [id number] [facility] [place] [id number] Self V [id number] Medicare [place] Med[place]ap Part B [id number] Self [id number] [place] Med[place]ap Part B [id number] Self 1 [id number] Medicare [place] Med[place]ap Part B [id number] Self 1 [id number] [employer] [place] [id number] Self V [id number] [employer] [place] Med[place] [id number] Self V [id number] Medicare - NGS Medicare Primary [id number] Self 1 [id number] Medicare [place] Medicare Primary [id number] Self [id number] Medicare - [place] Medicare Primary [id number] Self 1 [id number] Medicare [place] Primary [id number] Self MEDICARE Med [id number] Self [id number] [id number] [employer] [place] Med[place] [id number] Self [id number] [employer] [place] Med[place] [id number] Self Y [id number] Blue [employer] Health Maintenance Organization (HMO) [id number] Self T [id number] [employer] Commercial [id number] Self [id number] [employer] Commercial [id number] Self [id number] [employer] Health Maintenance Organization (O) [id number] Self [id number] EXCELLUS BCBS [id number] [facility] TNY [id number] [place] EX[employer] [id number] Self [id number] EXCELLUS H [id number] Self [id number] ANSI-Commercial [id number] ANSI-Medicare Part B [id number] ANSI-Medicare Part B [id number] ANSI-Commercial 68r8t70w-b4cd-0z17-[id number] 78c3p91j-q9sf-3p10-[id number] ANSI-Medicare Part B [id number] ANSI-Commercial z998gaza-5jhf-46o6-c285-l16r8521c7u4 m076mybx-3jkg-76s9-m863-a63k1735j3t8 ANSI-Commercial 43p02vlz-8w1t-69i7-7y93-121328kd17m4 18u69xof-5j0x-93f1-4w00-524072cy70z9 ANSI-Medicare Part B [id number] Medicare Medicare Primary [id number] 2.16.840.1.853713.3.227. 99.62.729421.0 Self [id number] ANSI-Commercial [id number]-w22i-0al1-4oal-[id number] [id number]-v18t-2xx4-8yze-[id number] ANSI-Medicare Part B [id number] ANSI-Commercial u9a03o1f-2nq3-45um-[id number] [id number]-7pq4-03ni-1qb7-84c870z92005 ANSI-Medicare Part B [id number]-2qs8xc14n25i ANSI-Commercial 5cae183q-9iq7-7lx2-s4v3-4896ge4dpf76 1gup104x-9rd2-8oy0-r4h6-4725fj7upl94 ANSI-Medicare Part B [id number] [id number]-j67o-y0k89hgi2acj ANSI-Medicare Part B [id number]-[id number] 450u91w0-59o4-0b4t-yc6l-47gpa1dx17ma ANS-Commercial 4ng58n10-m572-852z-8c4y-9p958p8v1492 4iz86k08-i905-385v-4a7q-[id number] Medicare [facility] Part B [id number] 2..1.198767.3.227.99.1767.39683.0 Self [id number] [employer] [id number] 2..1.855381.3.227.99. 1767.57874.0 Self [id number] BS [employer] [id number] 2..1.896248.3.227.99.991.22061.0 Self T [id number] [place] [employer] [place] [id number] 2..1.457810.3.227.99.2809.30269.0 Self [id number] BS [employer] [id number] 2..1.048169.3.227.99.991.48939.0 Self T [id number] Medicare [place]/[facility] Medicare Primary [id number] 2..1.426603.3.227.99.8646.602239.0 Self [id number] [employer] [facility] Health Maintenance Organization (HMO) [id number] 2.0.1.370650.3.227.99.8646.954600.0 Self [id number] BS [employer] [id number] 2..1.872612.3.227.99.991.37707.0 Self T [id number] [place] Med[place]ap Part B [id number] 2.0.1.920848.3.227.99.2809.02298.0 Self [id number] [place] 302/307 [id number] SP [id number] Medicare [place] Medigap Part B [id number] 2.0.1.603121.3.227.99.2809.49450.0 Self [id number] Medicare Natl Gov't [facility] [id number] 2.0.1.342952.3.227.99.1767.31348.0 Self [id number] BCBS/Excellus Commercial [id number] 2.0.1.907471.3.227.99. 1767.06546.0 Self [id number] BS [place] [facility] [id number] 2..1.160704.3.227.99.991.38410.0 Self T [id number] BS [place] [employer] [id number] 2..1.972371.3.227.99.991.55753.0 Self T [id number] Medicare [place] Medigap Part B [id number] 2.1.146015.3.227.99.2809.28267.0 Self [id number] [place] Medigap Part B [id number] .1.010312.3.227.99.2809.63468.0 Self [id number] EXCELLUS BS B [id number] S [place] [id number] MEDICARE C [id number] S [id number] A Medicare Natl Gov't [facility] Part B [id number] 2..1.120818.3.227.99.1767.85711.0 Self [id number] BCBS/[employer]cell[employer] Commercial [id number] 2.0.1.104754.3.227.99. 1767.28949.0 Self [id number] Medicare Natl Gov't [facility] Part B [id number] 2.0.1.685797.3.227.99.1767.39734.0 Self [id number] BCBS/[employer] Commercial [id number] 2.0.1.896216.3.227.99. 1767.28163.0 Self [id number] [place] Med[place]ap [place] [id number] 2.0.1.895432.3.227.99.2809.63850.0 Self [id number] Medicare Natl Gov't [facility] Part B [id number] 2.0.1.717759.3.227.99.1767.08840.0 Self [id number] BCBS/Excell[employer] Commercial [id number] 2.0.1.253330.3.227.99. 1767.77159.0 Self [id number] [place] Med[place]ap [place] [id number] 2.0.1.696792.3.227.99.2809.36107.0 Self [id number] Medicare Natl Gov't [facility] Part B [id number] Self BCBS/[employer] Commercial [id number] Self Medicare [place] Medicare Primary 2.0.1.737815.3. [id number] Self BS [place] [employer] 2..1.953492.3.227.99.991 .130774.0 Self [place] Med[place]ap Part B [id number] Self [place] 302/307 [id number] SP [id number] EXCELLUS BCBS P [id number] S VYS [id number] EXCELLUS BCBS P [id number] S YND [id number] BC/BS OF [place] P [id number] S VY [id number] SELF PAY UNAVAILABLE SP UNAVAILA BLE [id number] A MEDICARE [id number] SP [id number] N59 [id number] [place] PPO 302/307 [id number] SP [id number] [place] 302/307 [id number] SP [id number] [place] 302/307 [id number] SP [id number] MEDICARE [id number] SP [id number] N59 BLUE CROSS BLUE SHIELD -O/P [id number] 18 [id number] MEDICARE [id number] SP [id number] A MEDICARE C [id number] S [id number] N59 EXCELLUS BCBS B [id number] S [place] [id number] BCBS 2.16840.1.482547.3.441 [id number] Blue Cross/Bl ue Shield 2.0.1.258373.3.441 Medicare 2.0.1.126526.3.441 [id number] Medicare Part B 2.0.1.870912.3.441 BCBS 2.0.1.553771.3.441 [id number] Blue Cross/Bl ue Shield 2.0.1.620854.3.441 ANSI-Medicare Part B [id number] ANSI-Commercial [id number] ANSI-Medicare Part B [id number] ANSI-Commercial [id number] MEDICARE PI PI [facility] PI PI Medicare Medicare Primary [id number] [id number]. [id number] Self [id number] ANSI-Commercial [id number] ANSI-Medicare Part B [id number] ANSI-Medicare Part B [id number] ANSI-Commercial [id number] ANSI-Commercial [id number] ANSI-Medicare Part B [id number] ANSI-Medicare Part B [id number] ANSI-Commercial [id number] ANSI-Commercial [id number] ANSI-Medicare Part B [id number] ANSI-Commercial [id number] ANSI-Medicare Part B [id number] ANSI-Commercial [id number] ANSI-Medicare Part B [id number] Medicare Natl Gov't Servi Medigap Part B [id number] Self [id number] BCBS/Excellus Commercial [id number]. 1767.60401.0 Self [id number] ANSI-Commercial [id number] ANSI-Medicare Part B [id number] Problems, Conditions, and Diagnoses Code Display Name Description Problem Type Effective Dates Data Source(s) J30426 Personal history of nicotine dependence Personal history of nicotine dependence Diagnosis 07/14/2020 08:00:00 AM EDT [facility] H2511 Age-related nuclear cataract, right eye Age-related nuclear cataract, right eye Diagnosis 07/14/2020 08:00:00 AM [facility] Z1152 ENCOUNTER FOR SCREENING FOR COVID-19 ENCOUNTER F OR SCREENING FOR COVID-19 Diagnosis [facility] Ill-defined and unknown cause of mortali ty Ill-defined and unknown cause of mortality Diagnosis 06/20/2020 08:23:00 AM [facility] Z538 Procedure and treatment not carried out for other reasons Procedure and treatment not carried out for other reasons Diagnosis 06/09/2020 08:45:00 AM [facility] W63018 Nicotine dependence, other tobacco produ ct, uncomplicated Nicotine dependence, other tobacco product, uncomplicated Diagnosis 06/09 08:45:00 AM [facility] H2512 Age-related nuclear cataract, left eye A ge-related nuclear cataract, left eye Diagnosis 05/26/2020 06:39:00 AM [facility] Z53788 Encounter for other preprocedural examin ation Encounter for other preprocedural examination Diagnosis 05/21/2020 08:21:00 AM [facility] N40.0 [id number] Enlarged prostate Problem 12/22/2020 12:00:0 0 AM EDT eCW1 ([facility]) R33.9 [id number] Urinary retention Problem 11/17/2020 12:00:0 0 AM EDT eCW1 ([facility]) K59.00 [id number] Constipation, unspecified constipation ty pe Problem 11/14/2020 12:00:00 AM EDT eCW1 ([facility]) J43.9 [id number] Pulmonary emphysema, unspecified emphysem a type Problem 09/28/2020 12:00:00 AM EDT eCW1 ([facility]) E78.00 [id number] Pure hypercholesterolemia Problem 03/30/2020 12:00:00 AM EST eCW1 ([facility]) E04.9 5146561 Enlarged thyroid Problem 02/23/2020 12:00:00 AM EST eCW1 ([facility]) F17.200 [id number] Smoker Problem 2020 12:00:00 AM ES T eCW1 ([facility]) Surgeries/Procedures Procedure Description Date Indications Data Source(s) Bronchospasm Evaluation 01/31/2021 12:00:00 AM EST [facility] ([facility], ) Plethysmography Determination Lung Volumes & Per Airway Resi st 01/31/2021 12:00:00 AM EST MEDENT ([facility], ) DIFFUSING CAPACITY 01/31/2021 12:00:00 AM EST [facility] ([facility], ) Spirometry 01/30/2021 12:00:00 AM EST M EDENT ([facility], ) OFFICE OUTPATIENT VISIT 25 MINUTES 01/30/2021 12:00:00 AM EST [facility] ([facility], ) OFFICE OUTPATIENT VISIT 25 MINUTES 01/27/2021 12:00:00 AM EST [facility] ([facility], [facility]) OFFICE OUTPATIENT VISIT 25 MINUTES 01/07/2021 12:00:00 AM EDT MEDENT ([facility], [facility]) Imm: Flublok Quadrivalent 18 years & older 0.5mL IM Influenz a 12/22/2020 12:00:00 AM EDT eCW1 ([facility]) Voiding Trial 12/08/2020 12:00:00 AM EDT eCW1 ([facility]) BLDR IRRIGATION SMPL LAVAGE&/INSTLJ 12/08/2020 12:00:0 0 AM EDT eCW1 ([facility]) EKG 12-LEAD - CMAXX REPORT <td>EKG 12-LEAD - CMAXX REPORT</td><td></td><td>11/22/2020 12:41 PM EDT</td><td></td><td></td> 11/22/2020 12:41:[address] [facility] EKG 12-LEAD <td>EKG 12-LEAD</td><td>Rout ine</td><td>11/22/2020 12:41 PM EDT</td><td> Coronary artery disease involving grayling coronary artery of grayling heart without angina pectoris</td><td></td> 11/22/2020 12:41:17 PM EDT Coronary artery disease involving grayling coronary artery of grayling heart without angina pectoris [facility] Coronary artery disease involving grayling coronary artery of grayling heart without angina pectoris OFFICE OUTPATIENT VISIT 15 MINUTES 10/24/2020 12:00:00 AM EDT [facility] ([facility], [facility]) OFFICE OUTPATIENT VISIT 15 MINUTES 10/20/2020 12:00:00 AM EDT MED[facility] ([facility]) Med: Derm 1% Lidocaine with Epinephrine Injection Intr adermally to marked areas 08/24/2020 12:00:00 AM EDT eC ([facility]) STRESS TEST, PHARMACOLOGICAL WITH NUC ME D MYOCARDIAL PERFUSION SPECT (REST/STRESS) <td>STRESS TEST, PHARMACOLOGICAL WITH NU C MED MYOCARDIAL PERFUSION SPECT (REST/STRESS)</td><td>Routine</td><td>07/12/2020 2:02 PM EDT</td><td> Coronary artery disease involving grayling coronary artery of grayling heart without angina pectoris History of coronary artery bypass graft Mixed hyperlipidemia Essential hypertension 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 Abdominal aortic aneurysm (AAA) without rupture Myocardial infarction of inferior wall Essential hypertension Mixed hyperlipidemia History of coronary artery bypass graft Coronary artery disease involving grayling coronary artery of grayling heart without angina pectoris Staple Removal 06/16/2020 12:00:00 AM EDT eCW ([facility]) Suture Removal 06/10/2020 12:00:00 AM EDT eCW1 ([facility]) Med: Derm Lidocaine with Epinephrine Inj ection 1% with 2 ml sodium bicarbonate Intradermally to marked areas 06/02/2020 12:00:00 AM EDT eCW1 ([facility]) OFFICE OUTPATIENT VISIT 15 MINUTES 05/30/2020 12:00:00 AM EDT MED[facility] ([facility], [facility]) Results ID Date Data Source [id number] 01/30/2021 08:44:00 AM EST MED[facility] ([facility], ) Name Value Range Interpretation Code Description Data Saida rce(s) Supporting Document(s) PDFReport Laboratory test result MEDENT ([facility], ) FVC-Pred 4.37 L MED[facility] ([facility], ) FVC-%Pred-Pre 87 L MED[facility] ([facility]) FVC-Pre 3.81 L MED[facility] ([facility]) Fev1-Pre 3.12 L [facility] ([facility]) Fev1-Pred 3.13 L [facility] ([facility]) FVC-LLN 3.38 L [facility] ([facility]) Fev1-LLN 2.29 L MED[facility] ([facility]) Fev1-%Pred-Pre 99 L MEDENT ([facility]) Fev6-Pred 4.09 L MED[facility] ([facility]) Fev6-%Pred-Pre 92 L MEDENT ([facility]) Fev6-Pre 3.80 L MED[facility] ([facility], ) Fev6-LLN 3.13 L MEDENT ([facility]) Gnh2cju-Qhnw 72 % MEDENT ([facility]) Row8uqg-%Pred-Pre 114 % MEDENT ([facility]) Ujv1ump-Kjv 82 % MEDENT ([facility]) Tao2mdx-TUL 62 % MEDENT ([facility]) Grf9csx-Mqy 100 % MEDENT ([facility], ) Fud5qii-Lubm 94 % MEDENT ([facility], ) Rrk4bla-%Pred-Pre 106 % MED[facility] ([facility]) FEFMax-Pred 7.69 L/E/sec MEDENT ([facility]) FEFMax-Pre 9.19 L/E/sec MED[facility] ([facility]) FEFMax-LLN 5.23 L/E/sec MED[facility] ([facility]) FEFMax-%Pred-Pre 119 L/E/sec MED[facility] ([facility]) Zhm9724-Avnn 2.16 L/E/sec MEDENT ([facility]) Yay2851-Zvq 3.02 L/E/sec MED[facility] ([facility]) Juk2788-%Pred-Pre 139 L/E/sec MED[facility] ([facility]) Zik0006-CGF 0.47 L/E/sec [facility] ([facility]) Xkx8jut7-Wodv 76 % MED[facility] ([facility]) ExpTime-Pre 7.49 sec MEDENT ([facility]) Rqm7grc2-Umu 82 % MED[facility] ([facility]) Vkh0xde4-%Pred-Pre 107 % MEDENT ([facility]) Nyl1whh3-NHY 67 % MEDENT ([facility]) ID Date Data Source CBC with Differential 01/09/2021 12:00:00 AM EST eCW1 ([facility]) Name Value Range Interpretation Code Description Data Saida rce(s) Supporting Document(s) 3.56 4.30-6.10 RED BLOOD COUNT eCW1 ([facility]) 10.0 4.0-10.0 WHITE BLOOD COUNT eCW1 ([facility]) 90.2 80.0-96.0 MEAN CORPUSCULAR VOLUME e CW1 ([facility]) 9.9 13.5-17.5 HEMOGLOBIN eCW1 ([facility]) 32.1 42.0-52.0 HEMATOCRIT eCW1 ([facility]) 17.7 11.5-14.5 RED CELL DISTRIBUTION WID TH eCW1 ([facility]) 30.8 32.0-36.5 MEAN CORPUSCULAR HGB CONC eCW1 ([facility]) 27.8 27.0-33.0 MEAN CORPUSCULAR HEMOGLOB IN eCW1 ([facility]) 83.8 36.0-66.0 NEUTROPHILS % W1 ([facility]) 239 150-450 PLATELET COUNT, AUTOMATED eCW1 ([facility]) 9.1 24.0-44.0 LYMPH % eCW1 ([facility]) 0.4 0.0-3.0 EOS % eCW1 ([facility]) 5.9 2.0-8.0 MONO % eCW1 ([facility]) 0.2 0.0-1.0 BASO % eCW1 ([facility]) 0.0 0.0-0.5 EOS # eCW1 ([facility]) 0.6 0.0-0.8 MONO # eCW1 ([facility]) 0.9 1.5-5.0 LYMPH # eCW1 ([facility]) 8.4 1.5-8.5 NEUTROPHILS # eCW1 ([facility]) 0.0 0.0-0.2 BASO # eCW1 ([facility]) ID Date Data Source VITB12 & FOL 01/09/2021 12:00:00 AM EST eCW1 ([facility]) Name Value Range Interpretation Code Description Data Saida rce(s) Supporting Document(s) 348 VITAMIN B12 LEVEL eCW1 ([facility]) 5.5 FOLATE eCW1 ([facility]) ID Date Data Source FREE T4 & TSH PANEL 01/09/2021 12:00:00 AM EST eCW1 ([facility]) Name Value Range Interpretation Code Description Data Saida rce(s) Supporting Document(s) 0.535 0.358-3.740 THYROID STIMULATING HORM ONE eCW1 ([facility]) 1.03 0.76-1.46 FREE T4 eCW1 ([facility]) ID Date Data Source FERRITIN 01/09/2021 12:00:00 AM EST eCW1 ([facility]) Name Value Range Interpretation Code Description Data Saida rce(s) Supporting Document(s) 33 26-388 FERRITIN eCW1 ([facility]) ID Date Data Source Comprehensive Metabolic Profile (CMP) 01/09/2021 12:00:00 AM EST eCW1 ([facility]) Name Value Range Interpretation Code Description Data Saida rce(s) Supporting Document(s) 20 7-18 BLOOD UREA NITROGEN eCW1 ([facility]) 86 70-100 GLUCOSE, FASTING eCW1 ([facility]) 0.72 0.70-1.30 CREATININE FOR GFR eCW1 ([facility]) 142 136-145 SODIUM LEVEL eCW1 ([facility]) > 60.0 >42 GLOMERULAR FILTRATION RATE eCW 1 ([facility]) 4.7 3.5-5.1 POTASSIUM SERUM eCW1 ([facility]) 109 98-107 CHLORIDE LEVEL eCW1 ([facility]) 9.3 8.8-10.2 CALCIUM LEVEL eCW1 ([facility]) 30 21-32 CARBON DIOXIDE LEVEL eCW1 ([facility]) 18 7-37 AST/SGOT eCW1 ([facility]) 79 45-117 ALKALINE PHOSPHATASE eCW1 ([facility]) 0.3 0.2-1.0 BILIRUBIN,TOTAL eCW1 ([facility]) 19 12-78 ALT/SGPT eCW1 ([facility]) 3.3 3.2-5.2 ALBUMIN eCW1 ([facility]) 6.9 6.4-8.2 TOTAL PROTEIN eCW1 ([facility]) 0.9 ALBUMIN/GLOBULIN RATIO eCW1 ([facility]) ID Date Data Source NT-PRO BNP 01/09/2021 12:00:00 AM EST eCW1 ([facility]) Name Value Range Interpretation Code Description Data Saida rce(s) Supporting Document(s) 388 <450 NT-PRO BNP eCW1 ([facility]) ID Date Data Source [id number] 01/07/2021 12:00:00 AM EDT [facility] Name Value Range Interpretation Code Description Data Saida rce(s) Supporting Document(s) SARS-CoV2 Rapid Antigen Negative [facility] This lab was reported by Debby Pierce. ID Date Data Source CBC - Complete Blood Count 12/08/2020 12:00:00 AM EDT eCW1 ( [facility]) Name Value Range Interpretation Code Description Data Saida rce(s) Supporting Document(s) 9.4 13.5-17.5 HEMOGLOBIN eCW1 ([facility]) 3.33 4.30-6.10 RED BLOOD COUNT eCW1 ([facility]) 7.0 4.0-10.0 WHITE BLOOD COUNT eCW1 ([facility]) 88.9 80.0-96.0 MEAN CORPUSCULAR VOLUME e CW1 ([facility]) 29.6 42.0-52.0 HEMATOCRIT eCW1 ([facility]) 31.8 32.0-36.5 MEAN CORPUSCULAR HGB CONC eCW1 ([facility]) 28.2 27.0-33.0 MEAN CORPUSCULAR HEMOGLOB IN eCW1 ([facility]) 18.4 11.5-14.5 RED CELL DISTRIBUTION WID TH eCW1 ([facility]) 199 150-450 PLATELET COUNT, AUTOMATED eCW1 ([facility]) ID Date Data Source [id number] 11/22/2020 03:34:[address] [facility] Name Value Range Interpretation Code Description Data Saida rce(s) Supporting Document(s) [facility] YOPMOz1oFwIMOxMyy2VkPlNeWYObQD4cfje2H5C8lMHyB4YezRIrm7hcQ4IpW2XsYSDzTPAKFZ6LbJFk jb2 [file] e+XnAGaVO+arsalan/ej23PXrIo5N0xm8EpiQQ8FZq1amHj7dtNjwy6IBVzWvs0TSky+unMfg39ES3YRI89k vpukujNYQkpB0cK7bdLO1SqaE77kV2VDvZdRe2y6KBEZ/+imlb8GG3H5T8V1ginkDml8a5zH6L+Y9F0S 2sy89AueQke5Q280hbykX9U0quugnIVN4LigFBvf0d Is3j6oCLpf0sVz7RScHlEBN7Cmkglh1RJupqhU8H277dLbELAs2ljWKd0jRr6eAq1yVf5WhzRXiJ8PRb bTt9ZkpojaHxRFlmQq+XJpl3tUybhnLPGQ2dcfO4+SZaSevkw42OXj4B7PG27GQ+Rxp1oV1+1ml+2tnF IY8XemzpglD367dUDIkgeObd+b51qjPwrTH7JszOWG GqYNo7/IQ3+XHtXXErOQ56xLWmX3hfeGtw1UqeGbRQc6zDhD/iIMltblDd/Hwi0VJlEbzTh2KSFUhftk HIbPaF4L1TCcsumaKurtsMzQkuGxNzVwi5YyJezrMD+CPsN8cLD7rppe7lWSR5FWqp4Yt4k3bnE2qxsf CdBir6aoNLUnhfeTU08VlWa6drot2OfCkkyx5W2EpN 6Fde8F9o42g+K7Vhi/p8Hdc1Hoz0ZaAnMcf9b4uWrPBKfGvZzRxw4VpKUt/a8J2uy0lpovWMrub3HF1+ WrXXTsEnw2JyqNP2jikjF5i/P7Gc1hXNy4e1U9X6Ulbpg0olVBlNBEndz90eGdL471zPg/ePMXb/7izS 4+Ne5MnLfDpQwMC16i4aumZAdZhNlIjqHGB1bRZ55O lkK6lvC16b5+9ZP29Pa1NPaDR9ujGe8r5zhe0otB9lm1kIR3gwrjJjCfUck79dUYk+nwxzq7hQfhvBru 8A498bKJC8y4eN+86U0bqPt93wDju3tSJolqXndDxt3Y7zNi6eqjGIEyOt2x5+9i8p5J8lygEomqTIb2 LwrcMgr513CtjEi8HFuB/IE8pFj4rDd5dmSvS6zeXb ptPlrRsDa+top stitcher+top stitcher+top stitcher+top stitcher+vPkoKw8quckpRlyzTqhme4mrw2fnsjs35Zp+7Da+7TgT4shkO/168z [file] 0DLqgnw12U8J16NZtD9e7X5ld64h+VfZ0P3ffh88AW h/OS6zQfnBn/w7nYTXd07oFugbS0x14Gg361+v1vb1LxgH+9L2i37vqzN4tbwNsStlY2xyXpaj0i/G6/ Rfm1bHnlL3YYdiB42s6AyX6RFb7Ke0+X98L2YSkzemcbc101+B9Z61Q0QDnwlewjo/5dx/5dx/yuY37X Mb/rlL59wV861xhz83eYg+vwuw6/6/C7vtG/wO86/K 9A7bs3glp8q6X/Ar/r8LsOv+aYOrX1OR6N4Utlkcnrlw5+1+A2ZO9U9BkzoaxD9NE+1+F3N/zuht/d8L sb+xn2o+uN+3Varj0XwYDUcVyhILy5eFzLsbcJSlmxIzg7tYTQU9mJ866atBOeMzsLXaqQr9YZ+qVdfr uHN0KV95ma6nr3feQeg9kE+0EkffIuv/tGysrvZg+9 y+/soKS6fG8XrJdBHR+5u+1Z8i7YB4z17M8YfTRf2kwiIUHt7RcTJu/ltawr8yQ9czPzlKe69kjbtlQf 7Thvi0DTv/rSHnuZPaIOPqCacREjNpaHrpi0ZTqeGaUmizqNEuelL5ktHPj/+8YvRNv4xEDgCHv38gQU 39C69b9yy5s/0IL74xgMq82mgt68m83h88od9awx49 1Pqn/ZE+3hfc3H769Ua/0M29S/bEP/XavzXJ8OjY4c2F+G/aYW4ef4WSM/a+u2Mw7rpJ/ZmN/dmN/dmN /dmN/m8Ekd97jq94uy74km99vq23rv80kq94pd+7w29a6z9D/dmN/af1HPjENdGReuqLgKs+2l8y8b+3 c5vxrimFziTF+0cZ3h73feesr0ycLdP+fRAp0gsS5e K7yLLne7978w478Jg6sfc9um/+7G/m2u0XXxg+k64Y27J9K2J9uaJcythSFeWkC2kj7n6Yh3x+5r3nuC JDhf61J824ox5wMuL2nZUXE8cp/f9DzzihzN5s/b2M+o854JH9J6aC36fWUFPKwLmRuxh8rWFBY8YARF 1OAUJrDMPGn03O90nwKZzh/D00Y6zQoTzTlM2j+B82 qB/Julio C/iiG92yX/ohV57cR78nG19jP63oK89jQ04rE57tV68xL56tC04cU08eW80zLObaN91NUfLuXEt 76UDnHXQtMFszFhdFJ56FbMFONF7RsDTVqRRBqMUGgUUBpSrHaENv43aHD88WM05NF+xkC+xkC+xkC+x Leslie+xkC+xkC+cyqowtE1M0P9D3B2L5A2Y5X2A+N0cA6 TIzpCASjya3bUaJpLexZGAySNutOao9McvdbPnWIbA2PrpyjNzYMdV2AgqxeUcEY5eDQ7aXC6bADdH6O Susy/Q2A/Q2A/Q2A/H0kgXzIDoMxtduKvc1X99lC0tltBH2IZxCJLL7Wnenbp3ACxr4SYmi8HusDVGDv0 [file] 8XLCxz6rr9653kz91m18VnmW/qe8342xttZ/vj8v7X 0++WW+uP+ptqhbe9Q5+/W36wp9/9InnH6+t6b7t32pVxm1ho/GFDEx1VH5nh3Oooz9vpmWl+1booLN10 gDeqctkY13q4T44xc5ed5w+9af/UK7GwmKYblR6w01Itj0b0qpmahgvBz96W6i7sbr0CfOWP6064VD76 4q5fwWb1gIA2nAsSeVuGKefbMd/SKom5z2hiISn7Tk POSwwIHsfGM4VR40k8SzedZrwr15AT1rMWcgCce6TzHj0rHz3vckMSdw/82jlINY84cE76PzAS9MN9ep 3if8z4Y/bi23lqdu/51Xg3aeuB38ImZB+/+3pGi5gUlmf2Vu7RLCAie804xnSj7Gmldv56Xa0A56h70O Z3T7/9838RwLUFnq6j62z/OejnNfr1yLVd+vG7w7w+ yxJSep8tD6238m77D3485se3rqjSjvfReMt14oC1V6PO2s9Wzugcd1B4nPynKnNJwGG05mcIalVwGnE4 7medpFYc+jR6Z0UAjDjrcrsWRs/28NyaG0/s0y2gz9v6pfw5j1Ozi6j7to+0o4X+xrwy7kNzf77CzpLM /m3UvkX7mF/1L32pf+lL3xt7+j5NSE4qA5l2OuvF9Z m5MtjJ9+0vc8958z3sFIDRU5XVvvWwIsUojhazkigUNY6DTc2L+vb8lA4ccUgY3NWy/xfp+6Bc9T3u/c zY14HdcvsgmS06/V8bwCLwHh34N9p5tO0ks998O6WWCVJixgfegMIhGmr7JdahAkNMBwbmrpp2JX1wP+ vha50eGESsHbv8qbE1elB5l9Z+ZJO0tVl38EiqKNbt 34PSlv9d+8+Zbwbj18x2XRD31MHkSJWjzn6fMT/JyoVylxF0AfoHq+OhA2Jeq27oQj9oLWz2mJxuuv6h yHpqPAtt4axPCtBRYElTrfljtC269aPV+i3fFB8eg7vMxAVramIA9Su6vVt37Ffq4xNz8RaTqVlIzLEe Back Shoe Operator/Dhc08q9SvLh/4heY2pwC5P7ahHW31ae3W4Lxt4N [file] x4+/5PP7z9+Mf/9fZ//+mHf//hxz//uoQm3ix1/md//PFff/+medical staff director/zwL2//7X+/ff7Dn/70+9/9X3/z9u X3//KoM656++f/2wvL4N4//fbHH9/qZyo/W490/UeTi933+/Wv/bS16u9t1JC7M5/42UfOrJQDy/UO/+ R1oQfVTO919b7Oedv7y3nxPl/C6aVbh3dq3owx71l+ MJo3ODuMFbWIR+9t+01/5cfZ2nO2lqw//Ww4e5ympe534s7+/d7Gf/n2jx++e28Sv/b5e599DX425Vjy 5F+7Om1eheb09gtsfydlFr6n3ZrobmYxoav+auO/fX/of/v2p+///MNHd39/X10uiPjdl/3HN5H7Z6Iz P10293v+efv9j3/+4U//z/f/9hduf/vz49vv//48w/ jp3W/uX1497f5c/uP9v//+jz/+7FSg87tMwa5q6BY/8N3P/uG73/LJ94YQjf4rNjHX8vuxDUbjy+Lcev +KA/qI72z9wpBoa/n4asjRq3pzrYha1/+/P/z7f+00e4OR14Olku7pI62rU++18496/+8//fNf/+Ts+0 H86vt/++hI29rmP8//x+++//fff//jT66/XT2v3//4 0+bewyL6n//tP1/7+PCbP/7xDz//CXqb+uUff/c+3IQKewSYSwgrOcT0O879E767/e/e/10N060c0ple sc/69z+/t7V/4Q+3jte3jbbv+evv//sPb/Z2e09954cQ8rBI88K/fXXtfm+9vCe0c23BnikWs6/3rvX3 1waUc4lkt/p4pltjhYP7YqlSn63+9tnXv/nq/dzX8r F3+jzS7p/6/uJwZm4eJgJoVDI0csRwdPmgrdEfDniMXXicEGTuTog8NY3JuNNtSAUqQ8P0IIWpqf6yKW QwOKNbcVXfUnXbYXCXDO8FqUPmLL3ALVw1ULOuIPHrQbPlIOGsxuH7GZFbWGReBSKpX1PsphLsjXMoOK AgUj4+HO8tp1SgMrPkLSOnQib0HC3PcCGjTP1UvGCa bP4mzdZpU115bvMlUHYrZrtmi6HnALwyOVZIZO0ZDVJ2SIH3SFYfFe8+VA0ey2FkImHhKARuHye7OX4Q wMPsw1AyHX4DI2RvHQKdQBOQRLC7j9WtMAMmiskauuwjT0AyFBP5mS7yBTT6SHXpYNuzARFvJPviEUC6 VzBpTNeyIQOnLUAoWRRgEENiXWr6nYGbKG9NN8XaMZ SrNAYFRABnjsEeYa9bZSwHDAkCB0xjRZQIPeaQDZIzBTL4ItCeWZ2TyXHlUYB1HDwHFOIITNaFUWdjMg Jkz0I9ETZgZ6ZsZAQpipOcXQWDURfwVfuyBQ4myUedqbmuK2AedHVzFYESEWWoVQRiLXPkIGUuD2Hxf8 O8I1UvKWsJFWTTGLpRHOavUeF6i23qerIHLHYbERPj ID4+OD3jr7UjFf4SEIJkQX4kxvr7XC8AbEMcLV0JURcvamYtT3bgliLzUbJcMOLORQ4nD0EaqY95KOD+ CxXzTE7jejy0daXzAdHuFXCzVESxINAmCZruLSKvVAVyANDiDLA2AIG8OTDlMtRgIUKxTnB1WDAlORDw HCYouuPPXKEjCQM1IzFjLqRhRPPkUOCkWIhzCYTmRW PfMub1XQGzPNCiAF1sDuJnCZErJIMdCJIaEmZ7QxUbFoEBGLObRBCtGPViQvXpXLVbSJApKOcpSSDvIW VqLPo4KLUxDYJrRT5vBuKdBXSqVFRbWGNbXCGzGNCwdnCZFKHgAKWgTUU1ALUmBFCaRBTgEKldMXRsJN XrFJR3WCRfQEDqPB4wEjFdMTWvTVB8ZyQuPZOkQNHi aoDGCQIkKXCuXOB7GUTnKRAmVMUqOXcwCQReAAAoKaF4HJMoAGVsFQ2bObHtADCqSSV3ZUQjCQZlNMAx nwSYBJAhRLUyWHm2TlOnTVFxYOJbVMlbNNQeYWHyKJbrOSGtMQJzSC0gAqAaOBMaSUZoCTPbUHVuVITd eyRXCKGlRRYnZCO5LyRpDDAkHOOrRHodKZIyQCUjOE V1YULnIUFhGE7lZjVtWMUbSwTbHMswGYYvYCZskhOHLZHiRMWoMADaPPGlQNIpYQXdUYbnGYIhLWSfHq P6SUSpDLEjOO6yGcRoOJApFXX4RASyAHIxWTSecyRWJMXeSWZhNXCtZCN9FAQoMYIrSKy4adJcxPCeSk d6Hx0YzDjxUQX9Zs4QxiMzGKLsPYCISd6De310PP UgMCBSCgo+SzxeiHUnvYlqXNDDAxG8MWeUCPZXN3J= ID Date Data Source [id number] 11/22/2020 02:29:[address] [facility] Name Value Range Interpretation Code Description Data Saida rce(s) Supporting Document(s) Progress Note [facility] EMKWZi2bHxFPYmZd11/VKZuuHRKbr9HxFTpcFDp0UEssMKKpE2ZhPJX2zK4zHXM0LQyGVpAwFzDzXPMt lbm [file] UgC6XiRMNrCvGeYoheDK7oIRETDz2+KUhbxFWbzTvcOASXJkX4QeN8LYxtVUQOSl4P ID Date Data Source CT ABD/PEL w/IV & Oral Contrast 11/14/2020 12:00:00 AM EDT e CW1 ([facility]) Name Value Range Interpretation Code Description Data Saida rce(s) Supporting Document(s) CT ABD/PEL w/IV & Oral Contras t eCW1 ([facility]) ID Date Data Source URINE CULTURE 11/14/2020 12:00:00 AM EDT eCW1 ([facility]) Name Value Range Interpretation Code Description Data Saida rce(s) Supporting Document(s) URINE CULTURE eCW1 ([facility]) ID Date Data Source CBC with Auto Differential 11/14/2020 12:00:00 AM EDT eCW1 ( [facility]) Name Value Range Interpretation Code Description Data Saida rce(s) Supporting Document(s) 9.9 4.0-10.0 WHITE BLOOD COUNT eCW1 ([facility]) 3.82 4.30-6.10 RED BLOOD COUNT eCW1 ([facility]) 10.9 13.5-17.5 HEMOGLOBIN eCW1 ([facility]) 88.2 80.0-96.0 MEAN CORPUSCULAR VOLUME e CW1 ([facility]) 33.7 42.0-52.0 HEMATOCRIT eCW1 ([facility]) 28.5 27.0-33.0 MEAN CORPUSCULAR HEMOGLOB IN eCW1 ([facility]) 17.0 11.5-14.5 RED CELL DISTRIBUTION WID TH eCW1 ([facility]) 214 150-450 PLATELET COUNT, AUTOMATED eCW1 ([facility]) 32.3 32.0-36.5 MEAN CORPUSCULAR HGB CONC eCW1 ([facility]) 75.7 36.0-66.0 NEUTROPHILS % eCW1 ([facility]) 0.5 0.0-3.0 EOS % eCW1 ([facility]) 12.8 24.0-44.0 LYMPH % eCW1 ([facility]) 10.2 2.0-8.0 MONO % eCW1 ([facility]) 0.6 0-3.0 IMMATURE GRANULOCYTE % eCW1 ([facility]) 7.5 1.5-8.5 NEUTROPHILS # eCW1 ([facility]) 0.0 0-0 NUCLEATED RED BLOOD CELL % eCW 1 ([facility]) 0.2 0.0-1.0 BASO % eCW1 ([facility]) 0.1 0.0-0.5 EOS # eCW1 ([facility]) 1.0 0.0-0.8 MONO # eCW1 ([facility]) 1.3 1.5-5.0 LYMPH # eCW1 ([facility]) 0.0 0.0-0.2 BASO # eCW1 ([facility]) ID Date Data Source PSA SCREENING 11/14/2020 12:00:00 AM EDT eCW1 ([facility]) Name Value Range Interpretation Code Description Data Saida rce(s) Supporting Document(s) 3.65 < 4.00 PSA SCREENING W1 ([facility]) ID Date Data Source LIPASE 11/14/2020 12:00:00 AM EDT eCW1 ([facility]) Name Value Range Interpretation Code Description Data Saida rce(s) Supporting Document(s) [id number] LIPASE eCW1 ([facility]) ID Date Data Source [id number] 09/14/2020 04:45:00 AM EDT [facility] Name Value Range Interpretation Code Description Data Saida rce(s) Supporting Document(s) Microorganism or agent identified in Unspecified speci men Negative for SARS-CoV-2 RNA. [facility] This lab was ordered by [facility] and reported by Department of Pathology and Laboratory Medicine at [facility]. ID Date Data Source [id number] 09/13/2020 12:00:00 AM EDT [facility] Name Value Range Interpretation Code Description Data Saida rce(s) Supporting Document(s) SARS coronavirus 2 RdRp gene Negative Rapid COVID (Point of Care) [facility] This lab was ordered by [facility] and reported by [facility]. ID Date Data Source [id number] 07/18/2020 09:08:00 [place] [address] OPERATIVE SUMMARYNAME: DANIE MARTINEZ DATE OF : 1940TTENDING PHYS: Flori Jensen Jr., MD DATE: 07/14/20 MR#: [id number] OF PROCEDURE: 07/14/2020REOPERATIVE DIAGNOSIS: Visually significant cataract, right eye.POSTOPERATIVE DIAGNOSIS: Phacoemulsification cataract extraction with intraocular lensimplantation, right eye.SURGEON: OLIVIA StewartROCEDURE NOTE: After informed consent was obtained and a long discussion regardingreasonable expectations for visual recovery, the patient was brought to the surgical suite where thepatient was laid supine on the operating table. Blood pressure cuff, EKG, pulse oximeter, and nasalcannula were attached and monitored by the anesthesiology department. The patient was thenprepped and draped in a manner consistent with ophthalmic surgery to the eye. Lid speculum wasplaced. The remainder of the procedure was done with the aid of an operating microscope.Paracentesis blade was used to create a paracentesis site at the 12 o'clock position. 1% NPFLidocaine was injected intracamerally. Viscoelastic on a cannula was then used to reform theanterior chamber. Keratome, using a clear corneal technique, was used to create a tunneled entryinto the eye. Cystotome on Viscoelastic material was then used to begin a capsulorrhexis. Utrataforceps w ere then introduced, and the remainder of the capsulorrhexis was completed withoutdifficulty. BSS on a cannula was then used to hydro-dissect and hydro- delineate the nucleus andepi-nucleus respectively. Phacoemulsification unit was then introduced, and using a fiwrxq-[id number]-kcmuzgw technique, the nucleus and epi- nucleus were removed without difficulty. Automatedirrigation aspiration was then introduced into the anterior chamber, and the remaining corticalremnants were removed. Viscoelastic material on the cannula was then used to reform the capsularbag and the anterior chamber. The appropriate intraocular lens was identified and brought onto thesurgical field. The lens was then loaded into the capsular bag without difficulty. Automatedirrigation aspiration unit was introduced, and remaining Viscoelastic material was removed. Thelens centered well.COMPLICATIONS: None.BLOOD LOSS: Negligible. [address] [place] [address] OPERATIVE SUMMARYNAME: DANIE MARTINEZ DATE OF : 1940TTENDING PHYS: Flori Jensen Jr., MD DATE: 07/14/20 MR#: [id number]: Flori Jensen Jr., MD 07/18/20 08:49DT: TOM 07/18/20 09:08DS: Flori Jensen Jr., MD 08/11/20 11:15 2 Name Value Range Interpretation Code Description Data Saida rce(s) Supporting Document(s) ID Date Data Source [id number] 07/14/2020 02:10:00 PM EDT [facility] Name Value Range Interpretation Code Description Data Saida rce(s) Supporting Document(s) SARS-CoV-2 (COVID-19) RNA [Presence] in Respiratory specimen by AISHA with probe detection Not Detected [facility] This lab was ordered by [facility] and reported by [facility]. ID Date Data Source [id number] 07/09/2020 08:00:00 AM EDT [facility] Name Value Range Interpretation Code Description Data Saida rce(s) Supporting Document(s) SARS coronavirus 2 RNA Not Detected [facility] This lab was ordered by [facility] and reported by [employer]. ID Date Data Source [id number] 07/10/2020 01:27:00 PM EDT [facility] Name Value Range Interpretation Code Description Data Saida rce(s) Supporting Document(s) SARS-CoV-2, AISHA Not Detected Not Detected [facility] This nucleic acid amplification test was developed and its performancecharacteristics determined by [facility]. Nucleic acidamplification tests include RT-PCR and TMA. This test has not beenFDA cleared or approved. This test has been authorized by FDA underan Emergency Use Authorization (EUA). This test is only authorizedfor the duration of time the declaration that circumstances existjustifying the authorization of the emergency use of in vitrodiagnostic tests for detection of SARS-CoV-2 virus and/or diagnosisof COVID-19 infection under section 564(b)(1) of the Act, 21 U.S.C.360bbb-3(b) (1), unless the authorization is terminated or revokedsooner.When diagnostic testing is negative, the possibility of a falsenegative result should be considered in the context of a patient'srecent exposures and the presence of clinical signs and symptomsconsistent with COVID- 19. An individual without symptoms of COVID-19and who is not shedding SARS-CoV-2 virus would expect to have anegative (not detected) result in this assay. SARS-CoV-2, AISHA 2 DAY TAT Performed [facility] ID Date Data Source [id number] 06/02/2020 02:21:00 [place] [address] OPERATIVE SUMMARYNAME: DANIE MARTINEZ DATE OF : 1940TTENDING PHYS: Flori Jensen Jr., MD DATE: 05/26/20 MR#: [id number] OF PROCEDURE: 05/26/2020REOPERATIVE DIAGNOSIS: Visually significant cataract, left eye.POSTOPERATIVE DIAGNOSIS: Phacoemulsification cataract extraction with intraocular lensimplantation, left eye.SURGEON: Flori Jensen MDPROCEDURE NOTE: After informed consent was obtained and a long discussion regardingreasonable expectations for visual recovery, the patient was brought to the surgical suite where thepatient was laid supine on the operating table. Blood pressure cuff, EKG, pulse oximeter, and nasalcannula were attached and monitored by the anesthesiology department. The patient was thenprepped and draped in a manner consistent with ophthalmic surgery to the eye. Lid speculum wasplaced. The remainder of the procedure was done with the aid of an operating microscope.Paracentesis blade was used to create a paracentesis site at the 12 o'clock position. 1% NPFLidocaine was injected intracamerally. Viscoelastic on a cannula was then used to reform theanterior chamber. Keratome, using a clear corneal technique, was used to create a tunneled entryinto the eye. Cystotome on Viscoelastic material was then used to begin a capsulorrhexis. Utrataforceps were then introduced, and the remainder of the capsulorrhexis was completed withoutdifficulty. BSS on a cannula was then used to hydro-dissect and hydro- delineate the nucleus andepi-nucleus respectively. Phacoemulsification unit was then introduced, and using a omadmg-kas-qrjhfqk technique, the nucleus and epi- nucleus were removed without difficulty. Automatedirrigation aspiration was then introduced into the anterior chamber, and the remaining corticalremnants were removed. Viscoelastic material on the cannula was then used to reform the capsularbag and the anterior chamber. The appropriate intraocular lens was identified and brought onto thesurgical field. The lens was then loaded into the capsular bag without difficulty. Automatedirrigation aspiration unit was introduced, and remaining Viscoelastic material was removed. Thelens centered well.COMPLICATIONS: None.BLOOD LOSS: Negligible. [address] [place] [address] OPERATIVE SUMMARYNAME: DANIE MARTINEZ DATE OF : 1940TTENDING PHYS: Flori Jensen Jr., MD DATE: 05/26/20 MR#: [id number]: Flori Jensen Jr., MD 06/02/20 13:26DT: TOM 06/02/20 14:21DS: Flori Jensen Jr., MD 06/09/20 10:01 2 Name Value Range Interpretation Code Description Data Saida rce(s) Supporting Document(s) ID Date Data Source [id number] 06/04/2020 08:51:00 AM EDT [facility] Name Value Range Interpretation Code Description Data [facility] rce(s) Supporting Document(s) SARS coronavirus 2 RNA Not Detected [facility] This lab was ordered by [facility]issy and reported by [facility]. ID Date Data Source [id number] 06/06/2020 06:45:00 AM EDT [facility] Name Value Range Interpretation Code Description Data [facility] rce(s) Supporting Document(s) SARS-CoV-2, AISHA Not Detected Not Detected [facility] This nucleic acid amplification test was developed and its performancecharacteristics determined by [facility]. Nucleic acidamplification tests include RT-PCR and TMA. This test has not beenFDA cleared or approved. This test has been authorized by FDA underan Emergency Use Authorization (EUA). This test is only authorizedfor the duration of time the declaration that circumstances existjustifying the authorization of the emergency use of in vitrodiagnostic tests for detection of SARS-CoV-2 virus and/or diagnosisof COVID-19 infection under section 564(b)(1) of the Act, 21 U.S.C.360bbb-3(b) (1), unless the authorization is terminated or revokedsooner.When diagnostic testing is negative, the possibility of a falsenegative result should be considered in the context of a patient'srecent exposures and the presence of clinical signs and symptomsconsistent with COVID- 19. An individual without symptoms of COVID-19and who is not shedding SARS-CoV-2 virus would expect to have anegative (not detected) result in this assay. SARS-CoV-2, AISHA 2 DAY TAT Performed [facility] ID Date Data Source [id number] 05/21/2020 08:24:00 AM EDT [facility] Name Value Range Interpretation Code Description Data Saida rce(s) Supporting Document(s) SARS coronavirus 2 RNA Not Detected [facility] This lab was ordered by [facility] lissy and reported by [facility]. ID Date Data Source [id number] 05/23/2020 07:05:00 AM EDT [facility] Name Value Range Interpretation Code Description Data Saida rce(s) Supporting Document(s) SARS-CoV-2, AISHA Not Detected Not Detected [facility] This nucleic acid amplification test was developed and its performancecharacteristics determined by [facility]. Nucleic acidamplification tests include RT-PCR and TMA. This test has not beenFDA cleared or approved. This test has been authorized by FDA underan Emergency Use Authorization (EUA). This test is only authorizedfor the duration of time the declaration that circumstances existjustifying the authorization of the emergency use of in vitrodiagnostic tests for detection of SARS-CoV-2 virus and/or diagnosisof COVID-19 infection under section 564(b)(1) of the Act, 21 U.S.C.360bbb-3(b) (1), unless the authorization is terminated or revokedsooner.When diagnostic testing is negative, the possibility of a falsenegative result should be considered in the context of a patient'srecent exposures and the presence of clinical signs and symptomsconsistent with COVID- 19. An individual without symptoms of COVID-19and who is not shedding SARS-CoV-2 virus would expect to have anegative (not detected) result in this assay. ID Date Data Source [id number] 05/20/2020 01:38:[address] [facility] Name Value Range Interpretation Code Description Data Saida rce(s) Supporting Document(s) Progress Note [facility] QMIRUh4vJrFRGgAp52/IGZhoRUEuy9ScZZpvGWy0CRjmZOEsA7XjEVL2sA3oWSL3GRiJKoXpDmFnPmM8 lbm [file] YtC/r3Iq1KQB/UcnSB4XgLtxYlfkuc0Wu0+Jean Carlos/Yzq96rja6tfisBlUs6r/1l5h07b/YX0UysO6BnxX [file] ICAgICAgICAgICAgICAgICAgICAgICAgICAgICAgICAgICAgICAgICAgICAgICAgICAgICAgICAgICAg WADsIU4AFETbXYZcHLSpLUOgEOGpKTFtFZMmVDXlBS AgICAgICAgICAgICAgICAgICAgICAgICAgICAgICAgICAgICAgICAgICAgICAgICAgICAgICAgICAgIC VdAVGhSSFsJBGvHBZdOW8PGSYxPSRdLDGuGSOkBRUaWHQjOQIbLOMtTHRuPFKnEHNoBGPoJBIjAANqZH AgICAgICAgICAgICAgICAgICAgICAgICAgICAgICAg KJHsVBKmCIXhMBFcBJVaXUHlUNXtLRBfLJ9LRGLbAXYcRIWeTBExNQVcMKYxYJEiMKOgMNQaPGHcPFKa ICAgICAgICAgICAgICAgICAgICAgICAgICAgICAgICAgICAgICAgICAgICAgICAgICAgICAgICAgICAg LBCbBOUtBQ7FLHYdHRDsNFUbDRYlPHOxLDDfJRDlLR AgICAgICAgICAgICAgICAgICAgICAgICAgICAgICAgICAgICAgICAgICAgICAgICAgICAgICAgICAgIC FeRPYoPJCoXFKcWVDnMDGwUA9QURQcVVNhEKFuPVPhFJFbKUBuZSUzNQBzVLZyJYHoZHEgYEDoCUJoXB AgICAgICAgICAgICAgICAgICAgICAgICAgICAgICAg YEOmLCCoBPNxXXQuKFXkQHQiGZOrVVMeKPLbKC1LOSAqZCMbVZLeJIRzACCzYHMuWSJdACNcSSXiYSHs ICAgICAgICAgICAgICAgICAgICAgICAgICAgICAgICAgICAgICAgICAgICAgICAgICAgICAgICAgICAg MXBfEHOgDXEaHK4HTMAfBKZcPEUkTXZnZXXxXXIuUD AgICAgICAgICAgICAgICAgICAgICAgICAgICAgICAgICAgICAgICAgICAgICAgICAgICAgICAgICAgIC DfNLJsYXEqAIUmYRUlNMZtTRQrIV4HRCBhEWTdMLUxJFFlSNZsCJXeXYCpRFXpEAUrFKBdNMDtMKMyUQ AgICAgICAgICAgICAgICAgICAgICAgICAgICAgICAg PXFpWWMeUAExKJMjTCIzGODxYUWlSVMzQOEyVRMcKK5OQXUuAOIsIRKbAJAdIUXwVHXwVGRvFQLmVHJh ICAgICAgICAgICAgICAgICAgICAgICAgICAgICAgICAgICAgICAgICAgICAgICAgICAgICAgICAgICAg HLNrWIZjRYHvJOCjFV9EJL19bKApg5L7EMBiYI6ocx c/Nw0QIUrjorYcoLElRP3HFiDpPW9peh7UHjXlXI0tem6HVYhEHuRbP1F2iEAvBKUuNRCEEgIzU69pEE nyFv64RNuaXLKeSmErZYe2Ub2WWkSwS7geIBXhUkP5QDDpHuN6EIHiYxZ4YMFxEkHkQPXfIJIuZNZgER GSBAR0GRLzIrBcJuWmHGOpBR4LAMDjL087waIlQu6O Yz7RZeYfBP4ton6EEfljAJWqZrmWGug6MZozMF5SjYUfjBVkCJHoYMFMEcJmI9yvg9BkKemaYHDHVUna TK8Me9EwpCWdQAl+Ny3LVZ1rs8GmGMqzHQLvEI5gps2HDGbIZyKaZ5FpzGxhUFMef2nwYFAoUT2geJOz AFQ0JEaghyZ8KTRrI6nrrwionUMuAM4GYYA6IDBiKS rxJqUwEQXjZLl0LYTMTQoSIuQsL6Qle5ShXyD7DVVbJiYyYOkaCFJmCzG0AN83vEfxKT9CLYXpDAQdRI 68IMB6FWGnNt2YJd5OWgFyMR5yte3ZOtydXVShNgsRTzr6QSdtHK1EzSUmI5DwsMOfo1cUJsTmX3RKGI M6BHDqGv8FOFZsDhFrHIBzLLvfQO2zPDHiWXTEbUhh mvP8GW2NXA8yvoYzBZ3YMeGwOj9iPm5OIwAtB5GdI6CxSFHkETUCHRfcGV2RLRbzTN7bSN2Bu2SKqKQy sU5dzl4SNMXvSIQjQajcdz1ZLdsqE4D3hLhvFIKxLleeDAVYBKgqRH1XYQCtIDC7TSXnQmCxKRQKWrCl N88pCB4IN8Nyl94eHcG7DUKmMlFfZAzpDP15mJzhzp LaoEHgzPfyCE1UMx6+NGmckiZzAnfCWaxeGSNLNbRzBWOZSsHvVUYtJWTbBUNnQuM3SvEcJk4KHDFvKT GlCDRvHoVzMHPqVFUwSOrxBYItYPRsJKM7OCUnHWMfMK3IRvMnGCVqCNE3CRAiJEXhXKLsgo3XBISzNO CmCBN1HxBjZHVfLZThLHntAJJfPJYgCVj9GIAmSCNn VB5ZQjNoMXBnVJEbUkzzNWLpEPXcrk8LDZVcGKOuGwN6HCKbGTTmUXOuWVqwQFLkXKA5PzMmWINoJHIh XN2TOvSiPTUbFIBbKOGfMCZbYBZrfg8KMHQzULWsLQE3YcTeQVAqJTZkDGbcJWYaWVCiCjbvPLYiMWMj YY1LOfDoZTNzPML8IUpmLYWwWOVjni2QPYOfQLFiAy G5YyOiOQUiMGIoXBkaVBOsXPF8EzVmXBHvJWYmBO8SQfSjDQDtLEq1LnQvPISsQNSlhs6KBFMuDAMsZG A1NKDkAGReCKXzXRrvURUjJUHeHfE0HLLwLYLfDQ3WAvGsTZDvZpP0RqTkFLRjZLExjz3UBKCiUODlZF TjHmSrEOZvNEKxWNnxHUMrAXE1BxNdWJSqGGImRF5U PhBqXSOsWaB6OGAoLIZdZYHrff1TXNLaKQLpDIf1NeXuEYChTPFtROezFYJjUQQ6XWX6GIVuFOAxDG1D RfLpEFLiWpRxXPVjPDYzYPWrcm9CCQKkOEFbGjV7QwTfMXYgESJpAKqpAOMrIRJ8QMV9YNAdPYAqBU9A XwQgGKYbHcgnMEXbXRVeZYUfzf3LOEMqSIOmSQR7Cx OtGVPqVRCqYNddWOEfUDO1JKLeYYOiBYJrXK6SUpMtLCAgZmp5ZBLeBXVxEJCpud4UXUVtMWVeTWJ5JK RjBSKnDDQqPMbfKFNmVZO9FIJ5KZTkTPJzNB2CIrGqLOMgNOU9FaJgVNVsDGDpsl4PFRRePVJ7YWy0WQ MgPOFsUZXpTZcqOPWsHVDiFUN4GJGbGECjYL0SFdNm APMcNXJ9NsBfTETtWXSxih9FJZLeUSE2LzZzVRPmUWCjXSQeIPzfDXQlUDLwBWE8GZTuBORoDF1KMoLg AIZgXVXqCeBvUOCrHIMinp2QcNHigOfnwz4NELhGZb1JbJwoZDJnMIopQj9lqKVcNITaXQERLe4EypTh IDEgMCBSDQovSURbPGZjYTYyMTZkNmEzMmYyMTJhMD O6KCNaSdWtSMXhN9UdIwV6WpUyHtLySrL1UEXjCsIhZfCeWIF4LNRaYAJfXsTnGFU+YH0aZLn+Pg0Kc3 GojiD3xvXwEXc5LkJiZX7PKYNQJ0HSVh== ID Date Data Source [id number] 03/15/2020 12:00:00 AM EST [facility] Joel Tellez MD Patient Name: EVELYN HELTON Date of : 1940te 5 Date of Exam: JANAE Gupta [id number]#: Fax: [phone] EXAM: CTA - ABDOMEN & PELVISCLINICAL INFORMATION: Followup aortobiiliac stent graft.The latest prior for comparison is 04/10/2019.Low dose [address] examination of the abdomen and pelvis wasobtained using the angio protocol with 3 mm thick increments through theabdomen and pelvis. Sagittal, coronal and 3D reconstructions were obtainedof the mesenteric arteries with post processing at the physician'sworkstation when necessary. Contrast utilized: 100 cc of Optiray 350.There is no significant change in the appearance of the lung bases. Nopleural or pericardial effusions have developed.The liver, gallbladder, spleen, pancreas, adrenal glands, and kidneys areunchanged. The abdominal aorta has increased slightly in size measured inthe AP dimension in the same plane as the prior exam, today the maximaldimension is 7.3 cm, previously 6.5 cm, however, there is no evidence ofcontrast extravasation or other indication of an acute endoleak. Thedegree of patency of the aortobiiliac stent graft appears unchanged. Thebowel loops and the mesenteries are unchanged. There is no free fluid orfree air. There is no change in the imaged osseous structures.IMPRESSION:1. Although the AP dimension of the abdominal aorta has increased asdescribed above, there is no evidence of an acute endoleak and there is noevidence of significant change in the appearance of the degree of patencyof the aortobiiliac stent graft. When soft tissues density is subtractedfrom the density of the aortobiiliac stent graft and manipulated with 3Dimaging, there is no significant change in the appearance of the graftitself. Continued surveillance is suggested as clinically relevant.2. Other findings as described above.Accredited by the [employer] in [place].OSMANI Patton/Kim chaparro for referring JUAN HELTON to our office. Electronically Signed - CRISTAL LEAVITT DO 03/15/20 16:24 Name Value Range Interpretation Code Description Data Saida rce(s) Supporting Document(s) ID Date Data Source [facility] CT Chest without contrast 02/05/2020 12:00:00 AM EST eC W1 ([facility]) Name Value Range Interpretation Code Description Data Saida rce(s) Supporting Document(s) [facility] CT Chest without contrast eCW1 ([facility]) ID Date Data Source [id number] 01/15/2020 01:35:00 PM EST [facility] Name Value Range Interpretation Code Description Data Saida rce(s) Supporting Document(s) SARS coronavirus 2 RNA [facility] This lab was ordered by [facility] and reported by [facility]. Procedure Social History Code Duration Value Status Description Data Source(s ) 01/30/2021 12:00:00 AM EST Current Cigar Smoker 1 Kirk y completed Current Cigar Smoker 1 Daily [facility]ENT ([facility], ) Smoking 01/09/2021 12:00:00 AM EST Former Smoker completed Former Smoker eCW1 ([facility]) Smoking 12/22/2020 12:00:00 AM EDT Former Smoker completed Former Smoker eCW1 ([facility]) Smoking 12/08/2020 12:00:00 AM EDT Former Smoker completed Former Smoker eCW1 ([facility]) Smoking 12/08/2020 12:00:00 AM EDT Former Smoker completed Former Smoker eCW1 ([facility]) Smoking 12/08/2020 12:00:00 AM EDT Former Smoker completed Former Smoker eCW1 ([facility]) Alcohol intake 11/22/2020 12:00:00 AM EDT Current drinker of al cohol (finding) completed Current drinker of alcohol (finding) [facility] Tobacco use and exposure 11/22/2020 12:00:00 AM EDT Never used co mpleted Never used [facility] Smoking 11/22/2020 12:00:00 AM EDT Current some day smoker com pleted Current some day smoker [facility] Smoking 11/17/2020 12:00:00 AM EDT Former Smoker completed Former Smoker eCW1 ([facility]) Smoking 11/17/2020 12:00:00 AM EDT Former Smoker completed Former Smoker eCW1 ([facility]) Smoking 11/17/2020 12:00:00 AM EDT Former Smoker completed Former Smoker eCW1 ([facility]) Smoking 11/14/2020 12:00:00 AM EDT Former Smoker completed Former Smoker [email or web address] ([facility]) Smoking 11/14/2020 12:00:00 AM EDT Former Smoker completed Former Smoker [email or web address] ([facility]) Smoking 11/14/2020 12:00:00 AM EDT Former Smoker completed Former Smoker [email or web address] ([facility]) Smoking 10/24/2020 12:00:00 AM EDT Former Smoker completed Former Smoker [email or web address] ([facility]) Smoking 09/28/2020 12:00:00 AM EDT Former Smoker completed Former Smoker eCW1 ([facility]) Smoking 09/28/2020 12:00:00 AM EDT Former Smoker completed Former Smoker eCW1 ([facility]) Smoking 08/24/2020 12:00:00 AM EDT Former Smoker completed Former Smoker eCW1 ([facility]) Smoking 08/24/2020 12:00:00 AM EDT Former Smoker completed Former Smoker eCW1 ([facility]) Smoking 06/02/2020 12:00:00 AM EDT Former Smoker completed Former Smoker eCW1 ([facility]) Smoking 06/02/2020 12:00:00 AM EDT Former Smoker completed Former Smoker eCW1 ([facility]) Smoking 06/02/2020 12:00:00 AM EDT Former Smoker completed Former Smoker eCW1 ([facility]) Smoking 06/02/2020 12:00:00 AM EDT Former Smoker completed Former Smoker eCW1 ([facility]) Alcohol intake 05/20/2020 12:00:00 AM EDT Current drinker of al cohol (finding) completed Current drinker of alcohol (finding) [facility] Smoking 05/12/2020 12:00:00 AM EST Former Smoker completed Former Smoker eCW1 ([facility]) Smoking 05/12/2020 12:00:00 AM EST Former Smoker completed Former Smoker eCW1 ([facility]) Smoking 03/30/2020 12:00:00 AM EST Former Smoker completed Former Smoker eCW1 ([facility]) Smoking 02/23/2020 12:00:00 AM EST Former Smoker completed Former Smoker eCW1 ([facility]) Smoking 02/23/2020 12:00:00 AM EST Former Smoker completed Former Smoker eCW1 ([facility]) Smoking 2020 12:00:00 AM EST Former Smoker completed Former Smoker eCW1 ([facility]) Vital Signs ID Date Data Source UNK Name Value Range Interpretation Code Description Data Source(s) Systolic blood pressure 102 mm[Hg] 102 mm[Hg] [facility] ([facility]) Diastolic blood pressure 62 mm[Hg] 62 mm[Hg] [facility] ([facility]) Body height 72 [in_i] 72 [in_i] [facility] ([facility]) 6'0" Body weight 204.00 [lb_av] 204.00 [lb_av] [facility] Heart rate 53 /min 53 /min [facility] ([facility]) [place] body weight 178 [lb_av] 178 [lb_av] MED[facility] T ([facility]) Body mass index (BMI) [Ratio] 27.7 kg/m2 27.7 k g/m2 [facility] ([facility]) Body weight 92.534 kg 92.534 kg [facility] ([facility]) Body surface area Derived from formula 2.15 m2 2.15 m2 [facility] ([facility]) Oxygen saturation in Arterial blood by Pulse oximetry 97 % 97 % [facility] ([facility]) Systolic blood pressure 148 mm[Hg] 148 mm[Hg] Mami SWANSON ([facility], [facility]) Diastolic blood pressure 74 mm[Hg] 74 mm[Hg] [facility] ([facility], [facility]) Heart rate 105 /min 105 /min [facility] ([facility], [facility]) Respiratory rate 16 /min 16 /min [facility] ( [facility], [facility]) Oxygen saturation in Arterial blood by Pulse oximetry 96 % 96 % [facility] ([facility], [facility]) Body temperature 98.0 [degF] 98.0 [degF] [facility] ([facility], [facility]) Body weight 195.00 [lb_av] 195.00 [lb_av] MEDEN T ([facility], [facility]) Body height 70.5 [in_i] 70.5 [in_i] [facility] ([facility], [facility]) 5'10.50" Body mass index (BMI) [Ratio] 27.6 kg/m2 27.6 k g/m2 [facility] ([facility], [facility]) Body temperature 97.8 [degF] 97.8 [degF] eCW1 ( [facility]) Systolic blood pressure 120 mm[Hg] 120 mm[Hg] e CW1 ([facility]) Diastolic blood pressure 70 mm[Hg] 70 mm[Hg] eCW1 ([facility]) Body weight 204.4 [lb_av] 204.4 [lb_av] eCW1 ([facility]) Body height 70 [in_i] 70 [in_i] eCW1 ([facility]) Body mass index (BMI) [Ratio] 29.33 kg/m2 29.33 kg/m2 eCW1 ([facility]) Heart rate 67 /min 67 /min eCW1 ([facility]) Respiratory rate 18 /min 18 /min eCW1 ([facility]) Systolic blood pressure 130 mm[Hg] 130 mm[Hg] M EDENT ([facility], [facility]) Diastolic blood pressure 64 mm[Hg] 64 mm[Hg] [facility] ([facility], [facility]) Heart rate 54 /min 54 /min [facility] ([facility], [facility]) Respiratory rate 18 /min 18 /min MED[facility] ( [facility], [facility]) Oxygen saturation in Arterial blood by Pulse oximetry 98 % 98 % [facility] ([facility], [facility]) Body temperature 97.8 [degF] 97.8 [degF] [facility] ([facility], [facility]) Body weight 195.00 [lb_av] 195.00 [lb_av] MEDEN T ([facility], [facility]) Body height 70.5 [in_i] 70.5 [in_i] MEDENT ([facility], [facility]) 5'10.50" Body mass index (BMI) [Ratio] 27.6 kg/m2 27.6 k g/m2 [facility] ([facility], [facility]) Body weight 199.8 [lb_av] 199.8 [lb_av] eCW1 ([facility]) Body height 70 [in_i] 70 [in_i] eCW1 ([facility]) Body mass index (BMI) [Ratio] 28.67 kg/m2 28.67 kg/m2 eCW1 ([facility]) Heart rate 83 /min 83 /min eCW1 ([facility]) Respiratory rate 18 /min 18 /min eCW1 ([facility]) Body temperature 97.2 [degF] 97.2 [degF] eCW1 ( [facility]) Systolic blood pressure 140 mm[Hg] 140 mm[Hg] e CW1 ([facility]) Diastolic blood pressure 72 mm[Hg] 72 mm[Hg] eCW1 ([facility]) Body weight 196.8 [lb_av] 196.8 [lb_av] eCW1 ([facility]) Body height 70 [in_i] 70 [in_i] eCW1 ([facility]) Body mass index (BMI) [Ratio] 28.23 kg/m2 28.23 kg/m2 eCW1 ([facility]) Heart rate 76 /min 76 /min eCW1 ([facility]) Respiratory rate 18 /min 18 /min eCW1 ([facility]) Body temperature 97.0 [degF] 97.0 [degF] eCW1 ( [facility]) Systolic blood pressure 124 mm[Hg] 124 mm[Hg] e CW1 ([facility]) Diastolic blood pressure 66 mm[Hg] 66 mm[Hg] eCW1 ([facility]) Body weight 195 [lb_av] 195 [lb_av] eCW1 ([facility]) Body weight 88.45 kg 88.45 kg eCW1 ([facility]) Body height 70 [in_i] 70 [in_i] eCW1 ([facility]) Body mass index (BMI) [Ratio] 27.98 kg/m2 27.98 kg/m2 eCW1 ([facility]) Heart rate 85 /min 85 /min eCW1 ([facility]) Respiratory rate 18 /min 18 /min eCW1 ([facility]) Body temperature 96.2 [degF] 96.2 [degF] eCW1 ( [facility]) Systolic blood pressure 122 mm[Hg] 122 mm[Hg] e CW1 ([facility]) Diastolic blood pressure 64 mm[Hg] 64 mm[Hg] eCW1 ([facility]) Body weight 200 [lb_av] 200 [lb_av] eCW1 ([facility]) Body weight 90.72 kg 90.72 kg eCW1 ([facility]) Body height 70 [in_i] 70 [in_i] eCW1 ([facility]) Body mass index (BMI) [Ratio] 28.69 kg/m2 28.69 kg/m2 eCW1 ([facility]) Heart rate 65 /min 65 /min eCW1 ([facility]) Respiratory rate 18 /min 18 /min eCW1 ([facility]) Body temperature 96.7 [degF] 96.7 [degF] eCW1 ( [facility]) Systolic blood pressure 118 mm[Hg] 118 mm[Hg] e CW1 ([facility]) Diastolic blood pressure 62 mm[Hg] 62 mm[Hg] eCW1 ([facility]) Body weight 197 [lb_av] 197 [lb_av] eCW1 ([facility]) Body weight 89.36 kg 89.36 kg eCW1 ([facility]) Body height 70 [in_i] 70 [in_i] eCW1 ([facility]) Body mass index (BMI) [Ratio] 28.26 kg/m2 28.26 kg/m2 eCW1 ([facility]) Body weight 197.0 [lb_av] 197.0 [lb_av] eCW1 ([facility]) Body weight 89.36 kg 89.36 kg eCW1 ([facility]) Body height 70 [in_i] 70 [in_i] eCW1 ([facility]) Body mass index (BMI) [Ratio] 28.26 kg/m2 28.26 kg/m2 eCW1 ([facility]) Systolic blood pressure 124 mm[Hg] 124 mm[Hg] e CW1 ([facility]) Diastolic blood pressure 62 mm[Hg] 62 mm[Hg] eCW1 ([facility]) Systolic blood pressure 136 mm[Hg] 136 mm[Hg] M EDENT ([facility], [facility]) Diastolic blood pressure 65 mm[Hg] 65 mm[Hg] [facility] ([facility], [facility]) Heart rate 59 /min 59 /min MED[facility] ([facility], [facility]) Respiratory rate 14 /min 14 /min MED[facility] ( [facility], [facility]) Oxygen saturation in Arterial blood by Pulse oximetry 98 % 98 % [facility] ([facility], [facility]) Body temperature 97.5 [degF] 97.5 [degF] [facility] ([facility], [facility]) Body weight 190.00 [lb_av] 190.00 [lb_av] MEDEN T ([facility], [facility]) Body height 70.5 [in_i] 70.5 [in_i] MEDENT ([facility], [facility]) '.50" Body mass index (BMI) [Ratio] 26.9 kg/m2 26.9 k g/m2 [facility] ([facility], [facility]) Heart rate 67 /min 67 /min [facility] ([facility], [facility]) Respiratory rate 13 /min 13 /min MED[facility] ( [facility], [facility]) Oxygen saturation in Arterial blood by Pulse oximetry 97 % 97 % [facility] ([facility], [facility]) Body temperature 96.7 [degF] 96.7 [degF] [facility] ([facility], [facility]) Body weight 190.00 [lb_av] 190.00 [lb_av] MEDEN T ([facility], [facility]) Body height 70.5 [in_i] 70.5 [in_i] MED[facility] ([facility], [facility]) 5'10.50" Body mass index (BMI) [Ratio] 26.9 kg/m2 26.9 k g/m2 [facility] ([facility], [facility]) Systolic blood pressure 143 mm[Hg] 143 mm[Hg] M EDENT ([facility], [facility]) Diastolic blood pressure 73 mm[Hg] 73 mm[Hg] MED[facility] ([facility], [facility]) Body weight 192.2 [lb_av] 192.2 [lb_av] eCW1 ([facility]) Body height 70 [in_i] 70 [in_i] eCW1 ([facility]) Body mass index (BMI) [Ratio] 27.57 kg/m2 27.57 kg/m2 eCW1 ([facility]) Heart rate 83 /min 83 /min eCW1 ([facility]) Respiratory rate 18 /min 18 /min eCW1 ([facility]) Body temperature 97.5 [degF] 97.5 [degF] eCW1 ( [facility]) Systolic blood pressure 120 mm[Hg] 120 mm[Hg] e CW1 ([facility]) Diastolic blood pressure 70 mm[Hg] 70 mm[Hg] eCW1 ([facility]) Body weight 200 [lb_av] 200 [lb_av] eCW1 ([facility]) Body height 70 [in_i] 70 [in_i] eCW1 ([facility]) Body mass index (BMI) [Ratio] 28.69 kg/m2 28.69 kg/m2 eCW1 ([facility]) Body weight 199.4 [lb_av] 199.4 [lb_av] eCW1 ([facility]) Body height 70 [in_i] 70 [in_i] eCW1 ([facility]) Body mass index (BMI) [Ratio] 28.61 kg/m2 28.61 kg/m2 eCW1 ([facility]) Systolic blood pressure 138 mm[Hg] 138 mm[Hg] e CW1 ([facility]) Diastolic blood pressure 70 mm[Hg] 70 mm[Hg] eCW1 ([facility]) Systolic blood pressure 136 mm[Hg] 136 mm[Hg] M EDENT ([facility], [facility]) Diastolic blood pressure 80 mm[Hg] 80 mm[Hg] MED[facility] ([facility], [facility]) Heart rate 68 /min 68 /min MEDENT ([facility], [facility]) Respiratory rate 16 /min 16 /min MEDENT ( [facility], [facility]) Oxygen saturation in Arterial blood by Pulse oximetry 99 % 99 % MED[facility] ([facility], [facility]) Body temperature 98.7 [degF] 98.7 [degF] MED[facility] ([facility], [facility]) Body weight 190.00 [lb_av] 190.00 [lb_av] MEDEN T ([facility], [facility]) Body height 70.5 [in_i] 70.5 [in_i] MEDENT ([facility], [facility]) 5'10.50" Body mass index (BMI) [Ratio] 26.9 kg/m2 26.9 k g/m2 [facility] ([facility], [facility]) Body weight 200 [lb_av] 200 [lb_av] eCW1 ([facility]) Body height 70 [in_i] 70 [in_i] eCW1 ([facility]) Body mass index (BMI) [Ratio] 28.69 kg/m2 28.69 kg/m2 eCW1 ([facility]) Heart rate 58 /min 58 /min eCW1 ([facility]) Respiratory rate 18 /min 18 /min eCW1 ([facility]) Body temperature 97.4 [degF] 97.4 [degF] eCW1 ( [facility]) Systolic blood pressure 110 mm[Hg] 110 mm[Hg] e CW1 ([facility]) Diastolic blood pressure 60 mm[Hg] 60 mm[Hg] eCW1 ([facility]) Body weight 195 [lb_av] 195 [lb_av] eCW1 ([facility]) Body height 70 [in_i] 70 [in_i] eCW1 ([facility]) Body mass index (BMI) [Ratio] 27.98 kg/m2 27.98 kg/m2 eCW1 ([facility]) Heart rate 75 /min 75 /min eCW1 ([facility]) Diastolic blood pressure 70 mm[Hg] 70 mm[Hg] eCW1 ([facility]) Respiratory rate 18 /min 18 /min eCW1 ([facility]) Body temperature 97.5 [degF] 97.5 [degF] eCW1 ( [facility]) Systolic blood pressure 128 mm[Hg] 128 mm[Hg] e CW1 ([facility]) Body height 70 [in_i] 70 [in_i] eCW1 ([facility]) Body weight 197.2 [lb_av] 197.2 [lb_av] eCW1 ([facility]) Body mass index (BMI) [Ratio] 28.29 kg/m2 28.29 kg/m2 eCW1 ([facility]) Heart rate 64 /min 64 /min eCW1 ([facility]) Respiratory rate 18 /min 18 /min eCW1 ([facility]) Body temperature 97.2 [degF] 97.2 [degF] eCW1 ( [facility]) Systolic blood pressure 120 mm[Hg] 120 mm[Hg] e CW1 ([facility]) Diastolic blood pressure 72 mm[Hg] 72 mm[Hg] eCW1 ([facility]) Body weight 197.2 [lb_av] 197.2 [lb_av] eCW1 ([facility]) Body height 70 [in_i] 70 [in_i] eCW1 ([facility]) Body mass index (BMI) [Ratio] 28.29 kg/m2 28.29 kg/m2 eCW1 ([facility]) Heart rate 64 /min 64 /min eCW1 ([facility]) Respiratory rate 18 /min 18 /min eCW1 ([facility]) Body temperature 97.2 [degF] 97.2 [degF] eCW1 ( [facility]) Systolic blood pressure 120 mm[Hg] 120 mm[Hg] e CW1 ([facility]) Diastolic blood pressure 72 mm[Hg] 72 mm[Hg] eCW1 ([facility]) ID Date Data Source [id number] 08/11/2020 11:17:49 AM EDT [facility] Name Value Range Interpretation Code Description Data Source(s) WEIGHT RECORDED 186.00 pounds 186.00 pounds [facility] Height 70 Inches 070 Inches [facility] ID Date Data Source [id number] 06/09/2020 10:03:05 AM EDT [facility] Name Value Range Interpretation Code Description Data Source(s) WEIGHT RECORDED 190.00 pounds 190.00 pounds [facility] Height 70 Inches 070 Inches [facility] ID Date Data Source [id number] 05/20/2020 01:38:[address] [facility] Name Value Range Interpretation Code Description Data Source(s) WEIGHT RECORDED 196 lb 196 lb [facility] Body height Measured 70 in 70 in [facility] Patient Treatment Plan of Care Planned Activity Planned Date Details Description Data Source (s) Trelegy Ellipta 100-62.5-25 MCG/INH 01/10/2021 12:00:00 AM EST eCW1 ([facility]) ferrous sulfate 325 MG Delayed Release Oral Tablet 01/10/2021 12 :00:00 AM EST eCW1 ([facility]) Docusate Sodium 100 MG Oral Capsule [Colace] 01/10/2021 12:00:00 AM EST eCW1 ([facility]) Tamsulosin hydrochloride 0.4 MG Oral Capsule [Flomax] 11/17/2020 12:00:00 AM EDT eCW1 ([facility]) Tamsulosin hydrochloride 0.4 MG Oral Capsule [Flomax] 11/17/2020 12:00:00 AM EDT eCW1 ([facility]) Tamsulosin hydrochloride 0.4 MG Oral Capsule [Flomax] 11/17/2020 12:00:00 AM EDT eCW1 ([facility]) Tamsulosin hydrochloride 0.4 MG Oral Capsule 11/17/2020 12:00:00 AM [facility] Losartan Potassium 50 MG Oral Tablet 10/31/2020 12:00:00 AM [facility] Albuterol Sulfate HFA 108 (90 Base) MCG/ ACT Inhalation Aerosol Solution (PROVENTIL HFA) 09/29/2020 12:00:00 AM EDT [facility] 7 ACTUAT umeclidinium 0.0625 MG/ACTUAT Dry Powder Inha ler [Incruse] 09/28/2020 12:00:00 AM EDT eCW1 ([facility]) Losartan Potassium 50 MG Oral Tablet 09/28/2020 12:00:00 AM EDT eCW1 ([facility]) 200 ACTUAT Albuterol 0.09 MG/ACTUAT Metered Dose Inhal er [Ventolin] 09/28/2020 12:00:00 AM EDT eCW1 ([facility]) 7 ACTUAT umeclidinium 0.0625 MG/ACTUAT Dry Powder Inha ler [Incruse] 09/28/2020 12:00:00 AM EDT eCW1 ([facility]) Losartan Potassium 50 MG Oral Tablet 09/28/2020 12:00:00 AM EDT eCW1 ([facility]) 200 ACTUAT Albuterol 0.09 MG/ACTUAT Metered Dose Inhal er [Ventolin] 09/28/2020 12:00:00 AM EDT eCW1 ([facility]) 7 ACTUAT umeclidinium 0.0625 MG/ACTUAT Dry Powder Inha ler [Incruse] 09/28/2020 12:00:00 AM EDT eCW1 ([facility]) clopidogrel 75 MG Oral Tablet 06/13/2020 12:00:[address] [facility]
[2021-02-07] MEDS: LOSARTAN 50MG TABLET PO SCH ×2 (09:00→17:37)
[2021-02-07] MEDS: GABAPENTIN 400MG CAP PO SCH ×2 (09:00→21:27)
[2021-02-07] MEDS: PANTOPRAZOLE 40MG TAB (PROTONIX) PO SCH ×2 (09:00→21:28)
--- OUTSIDE RECORDS SUMMARY | 2021-02-07 09:00 | CCD ---
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 Name Role Phone NO, PCP Unavailable Unavailable Morrison, Molly TESTER [employer]AKAGE Unavailable Unavailable Morrison, Molly TESTER [employer] DISPOS[employer] LEAKAGE Unavailable Unavailable Morrison, Molly TESTER W[employer] DISPOS[employer] LEAKAGE Unavailable Unavailable Morrison, Molly TESTER WAST[employer] DISPOSAL LEAKAGE Unavailable Unavailable Morrison, Molly TESTER WASTE DISPOSAL LEAKAGE Unavailable Unavailable Morrison, Molly TESTER WASTE DISPOSAL LEAKAGE Unavailable Unavailable Morrison, Molly TESTER WASTE DISPOSAL LEAKAGE Unavailable Unavailable Morrison, Molly TESTER WASTE DISPOSAL LEAKAGE Unavailable Unavailable Morrison, Molly TESTER WASTE DISPOSAL LEAKAGE Unavailable Unavailable Morrison, Molly TESTER WASTE DISPOSAL LEAKAGE Unavailable Unavailable Morrison, Molly TESTER WASTE DISPOSAL LEAKAGE Unavailable Unavailable Morrison, Molly TESTER W[employer] DISPOSAL LEAKAGE Unavailable Unavailable Morrison, Molly TESTER [employer] DISPOS[employer] LEAKAGE Unavailable Unavailable LETTIERE, A KATIANA PA Unavailable [...] KATIANA PA Unavailable Unavailable DARION, C ERENDIRA TE[employer]POS[employer] LEAKAGE Unavailable Unavailable DARION, C ERENDIRA TESTER W[employer] DISPOSAL LEAKAGE Unavailable Unavailable DARION, C ERENDIRA TESTER WASTE DISPOSAL LEAKAGE Unavailable Unavailable DARION, C ERENDIRA TESTER WASTE DISPOSAL LEAKAGE Unavailable Unavailable DARION, C ERENDIRA TESTER WASTE DISPOSAL LEAKAGE Unavailable Unavailable DARION, C ERENDIRA TESTER WASTE DISPOSAL LEAKAGE Unavailable Unavailable DARION, C ERENDIRA TESTER WASTE DISPOSAL LEAKAGE Unavailable Unavailable DARION, C ERENDIRA TESTER WASTE DISPOSAL LEAKAGE Unavailable Unavailable DARION, C ERENDIRA TESTER WASTE DISPOSAL LEAKAGE Unavailable Unavailable DARION, C ERENDIRA TESTER WASTE DISPOSAL LEAKAGE Unavailable Unavailable DARION, C ERENDIRA TESTER WASTE DISPOSAL LEAKAGE Unavailable Unavailable DARION, C ERENDIRA TESTER WASTE DISPOSAL LEAKAGE Unavailable Unavailable DARION, C ERENDIRA TESTER WASTE DISPOSAL LEAKAGE Unavailable Unavailable DARION, C ERENDIRA TESTER WASTE DISPOSAL LEAKAGE Unavailable Unavailable DARION, C ERENDIRA TESTER WASTE DISPOSAL LEAKAGE Unavailable Unavailable DARION, C ERENDIRA TESTER WASTE DISPOSAL LEAKAGE Unavailable Unavailable DARION, C ERENDIRA TESTER WASTE DISPOSAL LEAKAGE Unavailable Unavailable DARION, C ERENDIRA TESTER WASTE DISPOSAL LEAKAGE Unavailable Unavailable DARION, C ERENDIRA TESTER WASTE DISPOSAL LEAKAGE Unavailable Unavailable DARION, C ERENDIRA TESTER WASTE DISPOSAL LEAKAGE Unavailable Unavailable DARION, C ERENDIRA TESTER WASTE DISPOSAL LEAKAGE Unavailable Unavailable DARION, C ERENDIRA TESTER WASTE DISPOSAL LEAKAGE Unavailable Unavailable DARION, C ERENDIRA TESTER WASTE DISPOSAL LEAKAGE Unavailable Unavailable DARION, C ERENDIRA TESTER WASTE DISPOSAL LEAKAGE Unavailable Unavailable DARION, C ERENDIRA TESTER WASTE DISPOSAL LEAKAGE Unavailable Unavailable DARION, C ERENDIRA TESTER WASTE DISPOSAL LEAKAGE Unavailable Unavailable DARION, C ERENDIRA TESTER WASTE DISPOSAL LEAKAGE Unavailable Unavailable DARION, C ERENDIRA TESTER WASTE DISPOSAL LEAKAGE Unavailable Unavailable DARION, C ERENDIRA TESTER WASTE DISPOSAL LEAKAGE Unavailable Unavailable DARION, C ERENDIRA TESTER WASTE DISPOSAL LEAKAGE Unavailable Unavailable DARION, C ERENDIRA TESTER WASTE DISPOSAL LEAKAGE Unavailable Unavailable RICHARDSON CHEATHAM PA Unavailable Unavailable [...] Unavailable Unavailable Nikky Greer MD Unavailable Unavailable Nikyk Greer MD Unavailable Unavailable Nikky Greer MD [...] is protected by Article 27-F of the [facility] Public Health law. If you continue you may have access to information: Regarding HIV / AIDS; Provided by facilities licensed or operated by the [facility] Office of Mental Health; or Provided by the [facility] Office for People With Developmental Disabilities. If such information is present, then the following [facility] mandated warning applies: This information has been [...] law may result in a fine or correction sentence or both. A general authorization for the release of medical or other information is NOT sufficient authorization for further disc losure. Allergies and Adverse Reactions Type Description Substance Reaction Status Data Source(s ) Propensity to adverse reactions NO KNOWN ALLERGIES NO KNOWN ALLERGIES [facility] No Known Drug Allergies No Known Drug Allergies [facility] Family History Family Member Name Family Member Gender Family Member Status Date o f Status Description Data Source(s) Unknown Unknown Problem MEDENT ([facility], ) Encounters Encounter Providers Location Date Indications Data Source(s ) Outpatient Attender: Noe Greer MD 05/31/2021 12:00:00 AM [facility] Outpatient Attender: Jesus Hernández/Inessa/Matthew/Aparna adams 01/30/2021 08:00:00 AM EST MEDENT ([facility]) Outpatient Attender: KATIANA griffiths 01/27/2021 01:25:00 PM EST [facility] ([facility] Office Visit, Est Pt., Level 4 PC [address] [place] [address] 01/09/2021 12:00:00 AM EST eCW1 ([facility]) Outpatient Attender: RICHARDSON Malhotra ry 01/07/2021 08:00:00 AM EDT [facility]ENT [facility] Outpatient [address] [facility] [place] [address] 12/22/2020 12:00:00 AM EDT eCW1 ([facility]) Unknown [address] [facility] [place] [address] 12/21/2020 12:00:00 AM EDT eCW1 ([facility]) Unknown [address] [facility] [place] [address] 12/16/2020 12:00:00 AM EDT eCW1 ([facility]) Outpatient [address] [facility] [address] 12/08/2020 12:00:00 AM EDT eCW1 ([facility]) Unknown [address] [facility] [address] 11/24/2020 12:00:00 AM EDT eCW1 ([facility]) Outpatient Attender: ERENDIRA ORLANDO NPReferrer: Addy Mclain MD [facility] 11/22/2020 12:37:13 PM EDT - 11/22/2020 01:45:31 PM ED T Atherosclerotic heart disease of [place] coronary artery without angina pectoris [facility] Atherosclerotic heart disease of [place] coronary artery without angina pectoris Outpatient 11/22/2020 12:00:00 AM [facility] Outpatient Attender: ERENDIRA ORLANDO [employer]AK[employer] 11/22/2020 12:00:00 AM [facility] Outpatient [address] [facility] [place] [address] 11/17/2020 12:00:00 AM EDT eCW1 ([facility]) Unknown [address] [facility] [place] [address] 11/15/2020 12:00:00 AM EDT eCW1 ([facility]) Outpatient [address] [facility] [place] [address] 11/14/2020 12:00:00 AM EDT [facility] Unknown [address] [facility] [place] [address] 11/14/2020 12:00:00 AM EDT eCW1 ([facility]) Outpatient [address] [facility] [address] 11/10/2020 12:00:00 AM EDT eCW1 ([facility]) Outpatient Attender: RICHARDSON Malhotra ry 10/24/2020 02:50:00 PM EDT MEDENT ([facility]) Outpatient [address] [facility] [address] 10/24/2020 12:00:00 AM EDT [facility]CW1 [facility]) Outpatient Attender: RICHARDSON Malhotra ry 10/20/2020 08:00:00 AM EDT MEDENT ([facility]) Office Visit, Est Pt., Level 4 PC [address] [place] [address] 09/28/2020 12:00:00 AM EDT eCW1 ([facility]) Unknown [address] [facility] [address] 09/27/2020 12:00:00 AM EDT eCW1 ([facility]) Postop visit [address] [facility] [place] [address] 08/25/2020 12:00:00 AM EDT eCW1 ([facility]) Outpatient [address] [facility] [place] [address] 08/24/2020 12:00:00 AM EDT eCW1 [facility]) Outpatient Attender: Flori Jensen JRConsultant: PCP DIANA 07/14/2020 08:00:00 AM EDT - 07/14/2020 09:53:00 AM EDT [facility] Patient discharged. Outpatient Attender: Noe Greer MDReferrer: Randall kumar MD 07/12/2020 12:00:00 AM EDT Atherosclerotic heart disease of [place] coronary artery without angina pectoris [facility] Atherosclerotic heart disease of [place] coronary artery without angina pectoris Outpatient Attender: Flori Lazcanoant: PCP NO 07/09/2020 08:47:00 AM EDT - 07/09/2020 09:47:00 AM EDT [facility] Patient discharged. Outpatient Attender: Flori Poncesuant: PCP NO 06/17/2020 11:45:59 AM EDT - 06/20/2020 08:23:00 AM EDT [facility] Patient discharged. Outpatient [address] [facility] [address] 06/16/2020 12:00:00 AM EDT [facility]CW1 [facility]) Unknown [address] [facility] [address] 06/10/2020 12:00:00 AM EDT eCW1 ([facility]) Outpatient [address] [facility] [place] [address] 06/10/2020 12:00:00 AM EDT eCW1 [facility]) Outpatient Attender: Flori Garner: PCP NO 06/04/2020 09:17:00 AM EDT - 06/04/2020 10:17:00 AM EDT [facility] Patient discharged. (MMS 1) [facility] [address] [facility] [address] 06/02/2020 12:00:00 AM EDT eCW1 ([facility]) Outpatient Attender: Flori Garner: PCP NO 06/01/2020 10:31:42 AM EDT - 06/09/2020 09:15:00 AM EDT [facility] Patient discharged. Outpatient Attender: Molly blakely 05/30/2020 03:00:00 PM EDT MEDENT ([facility]) Outpatient Attender: Flori Lazcanoant: PCP NO 05/26/2020 06:39:00 AM EDT - 05/26/2020 10:45:00 AM EDT [facility] Patient discharged. Outpatient Attender: Flori Poncesultant: PCP NO 05/21/2020 08:21:00 AM EDT - 05/21/2020 09:22:00 AM EDT [facility] Patient discharged. Outpatient Attender: Noe Greer MDReferrer: Randall kumar MD [facility] 05/20/2020 12:00:00 AM EDT - 05/20/2020 11:15:59 AM EDT Atherosclerotic heart disease of [place] coronary artery without angina pectoris [facility] Atherosclerotic heart disease of [place] coronary artery without angina pectoris Outpatient Attender: Flori Poncesultant: PCP NO 05/19/2020 01:47:59 PM EDT - 05/25/2020 06:43:00 AM EDT [facility] Patient discharged. Unknown [address] [facility], [facility] [address] 05/19/2020 12:00:00 AM EDT eCW1 ([facility]) Office Visit, Est Pt., Level 3 PC [address] [place] [address] 05/12/2020 12:00:00 AM EST eCW1 ([facility]) Office Visit, Est Pt., Level 4 PC [address] [place] [address] 03/30/2020 12:00:00 AM EST eCW1 ([facility]) Unknown [address] [facility], [facility] [address] 02/11/2020 12:00:00 AM EST eCW1 ([facility]) Office Visit, Est Pt., Level 4 PC [address] [place] [address] 2020 12:00:00 AM EST eCW1 ([facility]) Unknown [address] [facility], [facility] [address] 01/14/2020 12:00:00 AM EST eCW1 ([facility]) Unknown [address] [facility] [address] 12/25/2019 12:00:00 AM EDT eCW1 ([facility]) Unknown [address] [facility] [address] 12/25/2019 12:00:00 AM EDT eCW1 ([facility]) Immunizations Vaccine Date Status Description Data Source(s) COVID-19 VACCINE Moderna 01/29/2021 12:00:00 AM EST completed [facility] Vaccine Series Complete: YESThis Data wa s Submitted to [facility] Via [employer]. influenza, recombinant, quadrIvalent,injectable, prese rvative free 12/22/2020 03:54:00 PM EDT completed eCW1 ([facility]) influenza, recombinant, quadrIvalent,injectable, prese rvative free 12/22/2020 03:54:00 PM EDT completed eCW1 ([facility]) COVID-19 dose #1 given elsewhere Unspecified 03/29/2020 03:0 1:00 PM EST completed eCW1 ([facility]) COVID-19 dose #1 given elsewhere Unspecified 03/29/2020 03:0 1:00 PM EST completed eCW1 ([facility]) COVID-19 dose #1 given elsewhere Unspecified 03/29/2020 03:0 1:00 PM EST completed eCW1 ([facility]) COVID-19 dose #1 given elsewhere Unspecified 03/29/2020 03:0 1:00 PM EST completed eCW1 ([facility]) COVID-19 dose #1 given elsewhere Unspecified 03/29/2020 03:0 1:00 PM EST completed eCW1 ([facility]) COVID-19 dose #1 given elsewhere Unspecified 03/29/2020 03:0 1:00 PM EST completed eCW1 ([facility]) COVID-19 dose #1 given elsewhere Unspecified 03/29/2020 03:0 1:00 PM EST completed eCW1 ([facility]) COVID-19 dose #1 given elsewhere Unspecified 03/29/2020 03:0 1:00 PM EST completed eCW1 ([facility]) COVID-19 dose #1 given elsewhere Unspecified 03/29/2020 03:0 1:00 PM EST completed eCW1 ([facility]) COVID-19 dose #1 given elsewhere Unspecified 03/29/2020 03:0 1:00 PM EST completed eCW1 ([facility]) COVID-19(given elsewhere) Unspecified 03/29/2020 03:01:00 PM EST co mpleted eCW1 ([facility]) COVID-19 dose #1 given elsewhere Unspecified 03/29/2020 03:0 1:00 PM EST completed eCW1 ([facility]) COVID-19 dose #1 given elsewhere Unspecified 03/29/2020 03:0 1:00 PM EST completed eCW1 ([facility]) COVID-19 dose #1 given elsewhere Unspecified 03/29/2020 03:0 1:00 PM EST completed eCW1 ([facility]) COVID-19 dose #1 given elsewhere Unspecified 03/29/2020 03:0 1:00 PM EST completed eCW1 ([facility]) COVID-19 dose #1 given elsewhere Unspecified 03/29/2020 03:0 1:00 PM EST completed eCW1 ([facility]) COVID-19 dose #1 given elsewhere Unspecified 03/29/2020 03:0 1:00 PM EST completed eCW1 ([facility]) COVID-19 dose #1 given elsewhere Unspecified 03/29/2020 03:0 1:00 PM EST completed eCW1 ([facility]) COVID-19 dose #1 given elsewhere Unspecified 03/29/2020 03:0 1:00 PM EST completed eCW1 ([facility]) COVID-19 dose #1 given elsewhere Unspecified 03/29/2020 03:0 1:00 PM EST completed eCW1 ([facility]) COVID-19 dose #1 given elsewhere Unspecified 03/29/2020 03:0 1:00 PM EST completed eCW1 ([facility]) COVID-19 dose #1 given elsewhere Unspecified 03/29/2020 03:0 1:00 PM EST completed eCW1 ([facility]) COVID-19 dose #1 given elsewhere Unspecified 03/29/2020 03:0 1:00 PM EST completed eCW1 ([facility]) COVID-19 VACCINE Moderna 03/29/2020 12:00:00 AM EST completed [facility] Vaccine Series Complete: YESThis Data wa s Submitted to [facility] Via [employer]. COVID-19 dose #1 given elsewhere Unspecified 03/08/2020 03:0 1:00 PM EST completed eCW1 ([facility]) COVID-19 dose #1 given elsewhere Unspecified 03/08/2020 03:0 1:00 PM EST completed eCW1 ([facility]) COVID-19 dose #1 given elsewhere Unspecified 03/08/2020 03:0 1:00 PM EST completed eCW1 ([facility]) COVID-19 dose #1 given elsewhere Unspecified 03/08/2020 03:0 1:00 PM EST completed eCW1 ([facility]) COVID-19 dose #1 given elsewhere Unspecified 03/08/2020 03:0 1:00 PM EST completed eCW1 ([facility]) COVID-19 dose #1 given elsewhere Unspecified 03/08/2020 03:0 1:00 PM EST completed eCW1 ([facility]) COVID-19 dose #1 given elsewhere Unspecified 03/08/2020 03:0 1:00 PM EST completed eCW1 ([facility]) COVID-19 dose #1 given elsewhere Unspecified 03/08/2020 03:0 1:00 PM EST completed eCW1 ([facility]) COVID-19 dose #1 given elsewhere Unspecified 03/08/2020 03:0 1:00 PM EST completed eCW1 ([facility]) COVID-19 dose #1 given elsewhere Unspecified 03/08/2020 03:0 1:00 PM EST completed eCW1 ([facility]) COVID-19(given elsewhere) Unspecified 03/08/2020 03:01:00 PM EST co mpleted eCW1 ([facility]) COVID-19 dose #1 given elsewhere Unspecified 03/08/2020 03:0 1:00 PM EST completed eCW1 ([facility]) COVID-19 dose #1 given elsewhere Unspecified 03/08/2020 03:0 1:00 PM EST completed eCW1 ([facility]) COVID-19 dose #1 given elsewhere Unspecified 03/08/2020 03:0 1:00 PM EST completed eCW1 ([facility]) COVID-19 dose #1 given elsewhere Unspecified 03/08/2020 03:0 1:00 PM EST completed eCW1 ([facility]) COVID-19 dose #1 given elsewhere Unspecified 03/08/2020 03:0 1:00 PM EST completed eCW1 ([facility]) COVID-19 dose #1 given elsewhere Unspecified 03/08/2020 03:0 1:00 PM EST completed eCW1 ([facility]) COVID-19 dose #1 given elsewhere Unspecified 03/08/2020 03:0 1:00 PM EST completed eCW1 ([facility]) COVID-19 dose #1 given elsewhere Unspecified 03/08/2020 03:0 1:00 PM EST completed eCW1 ([facility]) COVID-19 dose #1 given elsewhere Unspecified 03/08/2020 03:0 1:00 PM EST completed eCW1 ([facility]) COVID-19 dose #1 given elsewhere Unspecified 03/08/2020 03:0 1:00 PM EST completed eCW1 ([facility]) COVID-19 dose #1 given elsewhere Unspecified 03/08/2020 03:0 1:00 PM EST completed eCW1 ([facility]) COVID-19 dose #1 given elsewhere Unspecified 03/08/2020 03:0 1:00 PM EST completed eCW1 ([facility]) COVID-19 VACCINE Moderna 03/01/2020 12:00:00 AM EST completed [facility] Vaccine Series Complete: NOThis Data was Submitted to [facility] Via [employer]. INFLUENZA VIRUS VACCINE QUADRIVAL SPLIT 2019-(65 YR UP)/PF 12/10/2019 12:00:00 AM EDT completed [facility] Medications Medication Brand Name Start Date [...] Doxycycline Monohydrate 100 MG Oral Capsule Doxycycline [place] hydrate 01/27/2021 12:00:00 AM EST ORAL active M EDENT ([facility]) 200 ACTUAT Albuterol 0.09 MG/ACTUAT Metered Dose Inhal er [Proventil] Proventil HFA 01/27/2021 12:00:00 AM EST active MEDENT ([facility]) Prednisone 20 MG Oral Tablet Prednisone 01/27/2021 12:00:00 AM EST active MEDENT ([facility]) ferrous sulfate 325 MG Delayed Release O ral Tablet Ferrous Sulfate 325 (65 Fe) MG Ferrous Sulfate 325 (65 Fe) MG 01/10/2021 12:00:00 AM EST 1. 0 {tablet} active Ferrous Sulfate 325 (65 Fe) MG eCW1 ([facility]) Docusate Sodium 100 MG Oral Capsule [Colace] Colace 100 MG C olace 100 MG 01/10/2021 12:00:00 AM EST 1.0 {capsule_as_needed} active Colace 100 MG eCW1 ([facility]) 30 ACTUAT fluticasone furoate 0.1 MG/ACT UAT [...] {puff} active Trelegy Ellipta 100-62.5-25 MCG/INH eCW1 ([facility]) Amoxicillin 875 MG / Clavulanate 125 MG Oral Tablet Am oxicillin/Clavulanate Potassium 01/07/2021 12:00:00 AM EDT ORAL completed MEDENT ([facility]) benzonatate 200 MG Oral Capsule Benzonatate 01/07/2021 12:00:00 AM EDT ORAL completed MEDENT ([facility]) Prednisone 10 MG Oral Tablet Prednisone 01/07/2021 12:00:00 AM EDT ORAL completed MEDENT ([facility]) Amoxicillin 875 MG / Clavulanate [...] Capsule (FLOMAX) 11/17/2020 12:00 :00 AM EDT [facility] Tamsulosin hydrochloride 0.4 MG Oral Capsule [Flomax] Flomax 0.4 MG Flomax 0.4 MG 11/17/2020 12:00:00 AM EDT 1.0 {capsule} active Flomax 0.4 MG eCW1 ([facility]) Tamsulosin hydrochloride 0.4 MG Oral Capsule [Flomax] Flomax 0.4 MG Flomax 0.4 MG 11/17/2020 12:00:00 AM EDT 1.0 {capsule} active Flomax 0.4 MG eCW1 ([facility]) Tamsulosin hydrochloride 0.4 MG Oral Capsule [Flomax] Flomax 0.4 MG Flomax 0.4 MG 11/17/2020 12:00:00 AM EDT 1.0 {capsule} active Flomax 0.4 MG eCW1 ([facility]) Tamsulosin hydrochloride 0.4 MG Oral Capsule [Flomax] Flomax 0.4 MG Flomax 0.4 MG 11/17/2020 12:00:00 AM EDT 1.0 {capsule} active Flomax 0.4 MG eCW1 ([facility]) Tamsulosin hydrochloride 0.4 MG Oral Capsule [Flomax] Flomax 0.4 MG Flomax 0.4 MG 11/17/2020 12:00:00 AM EDT 1.0 {capsule} active Flomax 0.4 MG eCW1 ([facility]) Tamsulosin hydrochloride 0.4 MG Oral Capsule [Flomax] Flomax 0.4 MG Flomax 0.4 MG 11/17/2020 12:00:00 AM EDT 1.0 {capsule} active Flomax 0.4 MG eCW1 ([facility]) Tamsulosin hydrochloride 0.4 MG Oral Capsule [Flomax] Flomax 0.4 MG Flomax 0.4 MG 11/17/2020 12:00:00 AM EDT 1.0 {capsule} active Flomax 0.4 MG eCW1 ([facility]) Tamsulosin hydrochloride 0.4 MG Oral Capsule [Flomax] Flomax 0.4 MG Flomax 0.4 MG 11/17/2020 12:00:00 AM EDT 1.0 {capsule} active Flomax 0.4 MG eCW1 ([facility]) Fluorouracil 50 MG/ML Topical Cream Fluorouracil 5 % Fluorou racil 5 % 11/10/2020 12:00:00 AM EDT 1.0 {application} active Fluorouracil 5 % eCW1 ([facility]) Fluorouracil 50 MG/ML Topical Cream Fluorouracil 5 % Fluorou racil 5 % 11/10/2020 12:00:00 AM EDT 1.0 {application} active Fluorouracil 5 % eCW1 ([facility]) Fluorouracil 50 MG/ML Topical Cream Fluorouracil 5 % Fluorou racil 5 % 11/10/2020 12:00:00 AM EDT 1.0 {application} active Fluorouracil 5 % eCW1 ([facility]) Fluorouracil 50 MG/ML Topical Cream Fluorouracil 5 % Fluorou racil 5 % 11/10/2020 12:00:00 AM EDT 1.0 {application} active Fluorouracil 5 % eCW1 ([facility]) Fluorouracil 50 MG/ML Topical Cream Fluorouracil 5 % Fluorou racil 5 % 11/10/2020 12:00:00 AM EDT 1.0 {application} active Fluorouracil 5 % eCW1 ([facility]) Fluorouracil 50 MG/ML Topical Cream Fluorouracil 5 % Fluorou racil 5 % 11/10/2020 12:00:00 AM EDT 1.0 {application} active Fluorouracil 5 % eCW1 ([facility]) 5 % 11/10/2020 12:00:00 AM EDT cream 40 APPLY TO AFFECTED AREA(S) TWO TIMES A DAY FOR 2 WEEKS APPLY TO AFFECTED AREA(S) TWO TIMES A DAY FOR 2 WEEKS SOLD: 11/17/2020 [facility] Fluorouracil 50 MG/ML Topical Cream Fluorouracil 5 % Fluorou racil 5 % 11/10/2020 12:00:00 AM EDT 1.0 {application} active Fluorouracil 5 % eCW1 ([facility]) Fluorouracil 50 MG/ML Topical Cream Fluorouracil 5 % Fluorou racil 5 % 11/10/2020 12:00:00 AM EDT 1.0 {application} active Fluorouracil 5 % eCW1 ([facility]) Fluorouracil 50 MG/ML Topical Cream Fluorouracil 5 % Fluorou racil 5 % 11/10/2020 12:00:00 AM EDT 1.0 {application} active Fluorouracil 5 % eCW1 ([facility]) Fluorouracil 50 MG/ML Topical Cream Fluorouracil 5 % Fluorou racil 5 % 11/10/2020 12:00:00 AM EDT 1.0 {application} active Fluorouracil 5 % eCW1 ([facility]) Fluorouracil 50 MG/ML Topical Cream Fluorouracil 5 % Fluorou racil 5 % 11/10/2020 12:00:00 AM EDT 1.0 {application} active Fluorouracil 5 % eCW1 ([facility]) Losartan Potassium 50 MG Oral Tablet Los tammy Potassium 50 MG Oral Tablet (COZAAR) Losartan Potassium 50 MG Oral Tablet (COZAAR) 11/01/19 12:00:00 AM EDT 50 mg Oral active Take 50 mg by murali th daily [facility] 0.3-0.1 % 10/20/2020 12:00:00 AM EDT drops,suspension [...] 10/20/2020 12:00:00 AM EDT AURICULAR completed MEDENT ([facility], [facility]) Amoxicillin 875 MG / Clavulanate 125 MG Oral Tablet Am oxicillin/Clavulanate Potassium 10/20/2020 12:00:00 AM EDT ORAL completed MEDENT ([facility], [facility]) Albuterol Sulfate HFA 108 (90 Base) MCG/ ACT Inhalation Aerosol Solution (PROVENTIL HFA) [id number] 09/29/2020 12:00:00 AM EDT active INHALE ONE PUFF BY MOUTH EVERY 4 HOURS NEEDED FOR SHORTNESS OF BREATH [facility] 62.5 mcg/actuation 09/29/2020 12:00:00 AM EDT blister [...] {puff} active Incruse Ellipta 62.5 MCG/INH eCW1 ([facility]) 200 ACTUAT Albuterol 0.09 MG/ACTUAT Mete red Dose Inhaler [Ventolin] Ventolin HFA 108 (90 Base) MCG/ACT Ventolin HFA 108 (90 Base) MCG/ACT 09/28/2020 12:00:00 AM EDT 1.0 {puff_as_needed} active Leo tolin HFA 108 (90 Base) MCG/ACT eCW1 ([facility]) Losartan Potassium 50 MG Oral Tablet Losartan Potassium 50 M G 09/28/2020 12:00:00 AM EDT 1.0 {tablet} active Lo sartan Potassium 50 MG eCW1 ([facility]) 7 ACTUAT umeclidinium 0.0625 MG/ACTUAT D ry Powder Inhaler [Incruse] Incruse Ellipta 62.5 MCG/INH Incruse Ellipta 62.5 MCG/INH 09/28/2020 12:00:00 AM EDT 1.0 {puff} active Incruse Ellipta 62.5 MCG/INH eCW1 ([facility]) 7 ACTUAT umeclidinium 0.0625 MG/ACTUAT D ry Powder Inhaler [Incruse] Incruse Ellipta 62.5 MCG/INH Incruse Ellipta 62.5 MCG/INH 09/28/2020 12:00:00 AM EDT 1.0 {puff} active Incruse Ellipta 62.5 MCG/INH eCW1 ([facility]) 7 ACTUAT umeclidinium 0.0625 MG/ACTUAT D ry Powder Inhaler [Incruse] Incruse Ellipta 62.5 MCG/INH Incruse Ellipta 62.5 MCG/INH 09/28/2020 12:00:00 AM EDT 1.0 {puff} active Incruse Ellipta 62.5 MCG/INH eCW1 ([facility]) 7 ACTUAT umeclidinium 0.0625 MG/ACTUAT D ry Powder Inhaler [Incruse] Incruse Ellipta 62.5 MCG/INH Incruse Ellipta 62.5 MCG/INH 09/28/2020 12:00:00 AM EDT 1.0 {puff} active Incruse Ellipta 62.5 MCG/INH eCW1 ([facility]) Losartan Potassium 50 MG Oral Tablet Losartan Potassium 50 M G 09/28/2020 12:00:00 AM EDT 1.0 {tablet} active Lo sartan Potassium 50 MG eCW1 ([facility]) 7 ACTUAT umeclidinium 0.0625 MG/ACTUAT D ry Powder Inhaler [Incruse] Incruse Ellipta 62.5 MCG/INH Incruse Ellipta 62.5 MCG/INH 09/28/2020 12:00:00 AM EDT 1.0 {puff} active Incruse Ellipta 62.5 MCG/INH eCW1 ([facility]) 200 ACTUAT Albuterol 0.09 MG/ACTUAT Mete red Dose Inhaler [Ventolin] Ventolin HFA 108 (90 Base) MCG/ACT Ventolin HFA 108 (90 Base) MCG/ACT 09/28/2020 12:00:00 AM EDT 1.0 {puff_as_needed} active Leo tolin HFA 108 (90 Base) MCG/ACT eCW1 ([facility]) Losartan Potassium 50 MG Oral Tablet Losartan Potassium 50 M G 09/28/2020 12:00:00 AM EDT 1.0 {tablet} active Lo sartan Potassium 50 MG eCW1 ([facility]) 7 ACTUAT umeclidinium 0.0625 MG/ACTUAT D ry Powder Inhaler [Incruse] Incruse Ellipta 62.5 MCG/INH Incruse Ellipta 62.5 MCG/INH 09/28/2020 12:00:00 AM EDT 1.0 {puff} active Incruse Ellipta 62.5 MCG/INH eCW1 ([facility]) Losartan Potassium 50 MG Oral Tablet Losartan Potassium 50 M G 09/28/2020 12:00:00 AM EDT 1.0 {tablet} active Lo sartan Potassium 50 MG eCW1 ([facility]) 200 ACTUAT Albuterol 0.09 MG/ACTUAT Mete red Dose Inhaler [Ventolin] Ventolin HFA 108 (90 Base) MCG/ACT Ventolin HFA 108 (90 Base) MCG/ACT 09/28/2020 12:00:00 AM EDT 1.0 {puff_as_needed} active Leo tolin HFA 108 (90 Base) MCG/ACT eCW1 ([facility]) 200 ACTUAT Albuterol 0.09 MG/ACTUAT Mete red Dose Inhaler [Ventolin] Ventolin HFA 108 (90 Base) MCG/ACT Ventolin HFA 108 (90 Base) MCG/ACT 09/28/2020 12:00:00 AM EDT 1.0 {puff_as_needed} active Leo tolin HFA 108 (90 Base) MCG/ACT eCW1 ([facility]) Losartan Potassium 50 MG Oral Tablet Losartan Potassium 50 M G 09/28/2020 12:00:00 AM EDT 1.0 {tablet} active Lo sartan Potassium 50 MG eCW1 ([facility]) 7 ACTUAT umeclidinium 0.0625 MG/ACTUAT D ry Powder Inhaler [Incruse] Incruse Ellipta 62.5 MCG/INH Incruse Ellipta 62.5 MCG/INH 09/28/2020 12:00:00 AM EDT 1.0 {puff} active Incruse Ellipta 62.5 MCG/INH eCW1 ([facility]) 200 ACTUAT Albuterol 0.09 MG/ACTUAT Mete red Dose Inhaler [Ventolin] Ventolin HFA 108 (90 Base) MCG/ACT Ventolin HFA 108 (90 Base) MCG/ACT 09/28/2020 12:00:00 AM EDT 1.0 {puff_as_needed} active Leo tolin HFA 108 (90 Base) MCG/ACT eCW1 ([facility]) 7 ACTUAT umeclidinium 0.0625 MG/ACTUAT D ry Powder Inhaler [Incruse] Incruse Ellipta 62.5 MCG/INH Incruse Ellipta 62.5 MCG/INH 09/28/2020 12:00:00 AM EDT 1.0 {puff} active eCW1 ([facility]) Losartan Potassium 50 MG Oral Tablet Losartan Potassium 50 M G 09/28/2020 12:00:00 AM EDT 1.0 {tablet} active eCW1 ([facility]) Losartan Potassium 50 MG Oral Tablet Losartan Potassium 50 M G 09/28/2020 12:00:00 AM EDT 1.0 {tablet} active Lo sartan Potassium 50 MG eCW1 ([facility]) 200 ACTUAT Albuterol 0.09 MG/ACTUAT Mete red Dose Inhaler [Ventolin] Ventolin HFA 108 (90 Base) MCG/ACT Ventolin HFA 108 (90 Base) MCG/ACT 09/28/2020 12:00:00 AM EDT 1.0 {puff_as_needed} active Leo tolin HFA 108 (90 Base) MCG/ACT eCW1 ([facility]) 7 ACTUAT umeclidinium 0.0625 MG/ACTUAT D ry Powder Inhaler [Incruse] Incruse Ellipta 62.5 MCG/INH Incruse Ellipta 62.5 MCG/INH 09/28/2020 12:00:00 AM EDT 1.0 {puff} active Incruse Ellipta 62.5 MCG/INH eCW1 ([facility]) 7 ACTUAT umeclidinium 0.0625 MG/ACTUAT D ry Powder Inhaler [Incruse] Incruse Ellipta 62.5 MCG/INH Incruse Ellipta 62.5 MCG/INH 09/28/2020 12:00:00 AM EDT 1.0 {puff} active Incruse Ellipta 62.5 MCG/INH eCW1 ([facility]) 200 ACTUAT Albuterol 0.09 MG/ACTUAT Mete red Dose Inhaler [Ventolin] Ventolin HFA 108 (90 Base) MCG/ACT Ventolin HFA 108 (90 Base) MCG/ACT 09/28/2020 12:00:00 AM EDT 1.0 {puff_as_needed} active Elo tolin HFA 108 (90 Base) MCG/ACT eCW1 ([facility]) 200 ACTUAT Albuterol 0.09 MG/ACTUAT Mete red Dose Inhaler [Ventolin] Ventolin HFA 108 (90 Base) MCG/ACT Ventolin HFA 108 (90 Base) MCG/ACT 09/28/2020 12:00:00 AM EDT 1.0 {puff_as_needed} active Leo tolin HFA 108 (90 Base) MCG/ACT eCW1 ([facility]) Losartan Potassium 50 MG Oral Tablet Losartan Potassium 50 M G 09/28/2020 12:00:00 AM EDT 1.0 {tablet} active Lo sartan Potassium 50 MG eCW1 ([facility]) Losartan Potassium 50 MG Oral Tablet Losartan Potassium 50 M G 09/28/2020 12:00:00 AM EDT 1.0 {tablet} active Lo sartan Potassium 50 MG eCW1 ([facility]) Losartan Potassium 50 MG Oral Tablet Losartan Potassium 50 M G 09/28/2020 12:00:00 AM EDT 1.0 {tablet} active Lo sartan Potassium 50 MG eCW1 ([facility]) Losartan Potassium 50 MG Oral Tablet Losartan Potassium 50 M G 09/28/2020 12:00:00 AM EDT 1.0 {tablet} active Lo sartan Potassium 50 MG eCW1 ([facility]) Losartan Potassium 50 MG Oral Tablet Losartan Potassium 50 M G 09/28/2020 12:00:00 AM EDT 1.0 {tablet} active Lo sartan Potassium 50 MG eCW1 ([facility]) 200 ACTUAT Albuterol 0.09 MG/ACTUAT Mete red Dose Inhaler [Ventolin] Ventolin HFA 108 (90 Base) MCG/ACT Ventolin HFA 108 (90 Base) MCG/ACT 09/28/2020 12:00:00 AM EDT 1.0 {puff_as_needed} active Leo tolin HFA 108 (90 Base) MCG/ACT eCW1 ([facility]) 7 ACTUAT umeclidinium 0.0625 MG/ACTUAT D ry Powder Inhaler [Incruse] Incruse Ellipta 62.5 MCG/INH Incruse Ellipta 62.5 MCG/INH 09/28/2020 12:00:00 AM EDT 1.0 {puff} active Incruse Ellipta 62.5 MCG/INH eCW1 ([facility]) 7 ACTUAT umeclidinium 0.0625 MG/ACTUAT D ry Powder Inhaler [Incruse] Incruse Ellipta 62.5 MCG/INH Incruse Ellipta 62.5 MCG/INH 09/28/2020 12:00:00 AM EDT 1.0 {puff} active Incruse Ellipta 62.5 MCG/INH eCW1 ([facility]) 200 ACTUAT Albuterol 0.09 MG/ACTUAT Mete red Dose Inhaler [Ventolin] Ventolin HFA 108 (90 Base) MCG/ACT Ventolin HFA 108 (90 Base) MCG/ACT 09/28/2020 12:00:00 AM EDT 1.0 {puff_as_needed} active Leo tolin HFA 108 (90 Base) MCG/ACT eCW1 ([facility]) 200 ACTUAT Albuterol 0.09 MG/ACTUAT Mete red Dose Inhaler [Ventolin] Ventolin HFA 108 (90 Base) MCG/ACT Ventolin HFA 108 (90 Base) MCG/ACT 09/28/2020 12:00:00 AM EDT 1.0 {puff_as_needed} active Leo tolin HFA 108 (90 Base) MCG/ACT eCW1 ([facility]) Losartan Potassium 50 MG Oral Tablet Losartan Potassium 50 M G 09/28/2020 12:00:00 AM EDT 1.0 {tablet} active Lo sartan Potassium 50 MG eCW1 ([facility]) Losartan Potassium 50 MG Oral Tablet Losartan Potassium 50 M G 09/28/2020 12:00:00 AM EDT 1.0 {tablet} active Lo sartan Potassium 50 MG eCW1 ([facility]) 200 ACTUAT Albuterol 0.09 MG/ACTUAT Mete red Dose Inhaler [Ventolin] Ventolin HFA 108 (90 Base) MCG/ACT Ventolin HFA 108 (90 Base) MCG/ACT 09/28/2020 12:00:00 AM EDT 1.0 {puff_as_needed} active eCW1 ([facility]) 200 ACTUAT Albuterol 0.09 MG/ACTUAT Mete red Dose Inhaler [Ventolin] Ventolin HFA 108 (90 Base) MCG/ACT Ventolin HFA 108 (90 Base) MCG/ACT 09/28/2020 12:00:00 AM EDT 1.0 {puff_as_needed} active Leo tolin HFA 108 (90 Base) MCG/ACT eCW1 ([facility]) 200 ACTUAT Albuterol 0.09 MG/ACTUAT Mete red Dose Inhaler [Ventolin] Ventolin HFA 108 (90 Base) MCG/ACT Ventolin HFA 108 (90 Base) MCG/ACT 09/28/2020 12:00:00 AM EDT 1.0 {puff_as_needed} active Leo tolin HFA 108 (90 Base) MCG/ACT eCW1 ([facility]) 5 mg 09/16/2020 12:00:00 AM EDT tablet [...] AM EDT active TAKE 1 TABLET DAILY [facility] 20 mg 06/06/2020 12:00:00 AM EDT tablet [...] 05/30/2020 12:00:00 AM EDT ORAL completed MEDENT ([facility], [facility]) 100 mg 05/30/2020 12:00:00 AM EDT tablet [...] TAPER DIRECTED FOR ONE MONTH SOLD: 07/14/2020 [facility] 1 % 05/18/2020 12:00:00 AM [...] type / Coverage type Policy ID Covered republican ID Covered republican's relationship to bruno Policy Bruno Plan Information [facility] [place] [id number] Self MEDICARE A [id number] Self [id number] N59 MEDICARE [id number] Ananya [id number] N59 MEDICARE [id number] Ananya [id number] A Special Funds (WC) Workers Compensation [id number] Self BS Of [facility] [employer] Maintenance Organization ([facility] TNY2 [id number] Self [id number] BS Of [facility] Selligy Maintenance [facility] ([facility]) TNY2 [id number] Self [id number] BC/BS Of [employer] [id number] 2.16.840.1.266917.3.227.99.1 77.40189.0 Self [id number] [place] Of [place] Commercial [id number] 2.16.840.1.503408.3.227.99.1 77.16068.0 Self [id number] BS Of [facility] Health Maintenance Organization ([facility]) TNY2 [id number] 2.16.840.1.683347.3.227.99.2809.87989.0 Self [id number] BS Of [facility] Health [facility] Organization ([facility]) TNY2 [id number] 2.16.840.1.886662.3.227.99.2809.80900.0 Self [id number] BS Of [facility] Health Maintenance Organization ([facility]) [id number] Self BS Of [facility] Health [facility] Organization ([facility]) TNY2 [id number] 2.16.840.1.973634.3.227.99.2809.97268.0 Self [id number] [facility] [id number] 2.16.840.1.565172.3.227.99.8646.238865.0 Self [id number] BS Of [facility] Health Maintenance Organization ([facility]) TNY2 [id number] 2.16.840.1.642267.3.227.99.2809.37115.0 Self [id number] BS Of [facility] Health [facility] Organization ([facility]) TNY2 [id number] 2.16.840.1.518778.3.227.99.2809.04288.0 Self [id number] Medicare [place] Medigap Part B [id number] 2.16.840.1.959648.3.227.99.991.21892.0 Self 1 [id number] Medicare [place] Medigap Part B [id number] 2.16840.1.851213.3.227.99.991.03800.0 Self 1 [id number] [facility] Medigap Part B [id number] 2.16.840.1.387518.3.227.99.991.33103.0 Self [id number] Medicare [place] Medigap Part B [id number] 2.16.840.1.664770.3.227.99.991.79022.0 Self 1 [id number] Medicare [place] Medigap Part B [id number] 2.16.840.1.251224.3.227.99.991.16989.0 Self 1 [id number] Medicare [place] Medigap Part B [id number] 2.16.840.1.202866.3.227.99.991.60577.0 Self 1 [id number] Blue Shield [place] Med[place] [id number] 2.16840.1.717911.3.227.99.62.623550.0 Self V [id number] Blue Shield [place] Medigap [place] [id number] 2.16.840.1.204462.3.227.99.62.593617.0 Self V [id number] Medicare - NGS Medicare Primary [id number] 2.16.840.1.733856.3.227.99.177.78213.0 Self 1 [id number] Medicare [place]/NGS Medicare Primary [id number] 2.16840.1.849188.3.227.99.8646.067150.0 Self [id number] Medicare - NGS Medicare Primary [id number] 2.16.840.1.442707.3.227.99.177.16088.0 Self 1 [id number] Medicare [place] Medicare Primary [id number] Self MEDICARE Med [id number] Self [id number] N59 Blue Shield [place] Medigap Part B [id number] 2.16.840.1.346130.3.227.99.62.778529.0 Self Y [id number] Blue Shield [place] Medigap Part [place] [id number] 2.16.840.1.994257.3.227.99.62.250392.0 Self Y [id number] Blue Ppo Health Maintenance Organization (HMO) [id number] 2.16.840.1.294529.3.227.99.62.046302.0 Self T [id number] BCBS Ppo Commercial [id number] 2.16.840.1.652904.3.227.99.177.37884 .0 Self [id number] BCBS Ppo Commercial [id number] 2.16.840.1.146445.3.227.99.177.34173 .0 Self [id number] Excellus BCBS Health Maintenance Organization (O) [id number] 23 2.16.840.1.214397.3.227.99.8646.940725.0 Self [id number] EXCELLUS BCBS [id number] [facility] TNY [id number] BLUE [place] EXCELLUS [id number] Self [id number] EXCELLUS H [id number] Self [id number] ANSI-Commercial [id number] ANSI-Medicare Part B [id number] ANSI-Medicare Part B [id number] ANSI-Commercial [id number] ANSI-Medicare Part B [id number] ANSI-Commercial [id number] ANSI-Commercial [id number] ANSI-Medicare Part B [id number] Medicare Medicare Primary [id number] 2.16.840.1.594194.3.227. 99.62.719054.0 Self [id number] ANSI-Commercial [id number] ANSI-Medicare Part B [id number] ANSI-Commercial [id number] ANSI-Medicare Part B [id number] ANSI-Commercial [id number] ANSI-Medicare Part B [id number] ANSI-Medicare Part B [id number] ANS-Commercial [id number] Medicare Natl Gov't [facility] Part B [id number] 2..1.833568.3.227.99.1767.09606.0 Self [id number] BC/Excellus Commercial [id number] 2..1.170119.3.227.99. 1767.48061.0 Self [id number] [place] [id number] 2..1.597871.3.227.99.991.26573.0 Self T [id number] Medicare [place] Medigap Part B [id number] 2..1.203436.3.227.99.2809.40471.0 Self [id number] BS [employer] [id number] 2..1.823677.3.227.99.991.57514.0 Self T [id number] Medicare Upstate/[facility] Medicare Primary [id number] 2..1.849555.3.227.99.8646.572768.0 Self [id number] Excellus [facility] Health Maintenance Organization (HMO) [id number] 23 2.0.1.395869.3.227.99.8646.834738.0 Self [id number] BS [place] [id number] 2..1.911186.3.227.99.991.91819.0 Self T [id number] Medicare [place] Medigap Part B [id number] 2.0.1.476085.3.227.99.2809.21806.0 Self [id number] BCBS [place] PPO 302/307 [id number] SP [id number] Medicare [place] Medigap Part B [id number] 2.0.1.427354.3.227.99.2809.56353.0 Self [id number] Medicare Natl Gov't [facility] Part B [id number] 2.0.1.204534.3.227.99.1767.56582.0 Self [id number] BCBS/Excellus Commercial [id number] 2.0.1.677926.3.227.99. 1767.00080.0 Self [id number] BS [place] [id number] 2..1.694639.3.227.99.991.61795.0 Self T [id number] BS [place] [id number] 2..1.046612.3.227.99.991.26062.0 Self T [id number] Medicare [place] Medigap Part B [id number] 2.1.322901.3.227.99.2809.03628.0 Self [id number] Medicare [place] Medigap Part B [id number] .1.953247.3.227.99.2809.05922.0 Self [id number] EXCELLUS BS B [id number] S TNY [id number] MEDICARE C [id number] S [id number] A Medicare Natl Gov't [facility] Part B [id number] 2..1.205478.3.227.99.1767.12970.0 Self [id number] BCBS/Excellus Commercial [id number] 2.0.1.364269.3.227.99. 1767.62834.0 Self [id number] Medicare Natl Gov't [facility] Part B [id number] 2.0.1.700302.3.227.99.1767.11180.0 Self [id number] BCBS/Excellus Commercial [id number] 2.0.1.612135.3.227.99. 1767.38212.0 Self [id number] Medicare [place] Medigap Part B [id number] 2.0.1.320485.3.227.99.2809.92838.0 Self [id number] Medicare Natl Gov't [facility] Part B [id number] 2.0.1.407907.3.227.99.1767.99470.0 Self [id number] BCBS/Excellus Commercial [id number] 2.0.1.385114.3.227.99. 1767.07185.0 Self [id number] [place] Medigap Part B [id number] 2.0.1.162774.3.227.99.2809.29421.0 Self [id number] Medicare Natl Gov't [facility] Part B [id number] Self BCBS/Excellus Commercial [id number] Self Medicare [place] Medicare Primary 2.0.1.085643.3. 227.99.991.097362.0 Self BS [place] Commercial 2..1.251503.3.227.99.991 .057682.0 Self Medicare [place] Medigap Part B [id number] Self BCBS [place] PPO 302/307 [id number] SP [id number] EXCELLUS BCBS P [id number] S VYS [id number] EXCELLUS BCBS P [id number] S [id number] BC/BS OF [place] P [id number] S VY [id number] SELF PAY UNAVAILABLE SP UNAVAILA BLE [id number] A MEDICARE [id number] SP [id number] N59 [id number] BCBS [place] PPO 302/307 [id number] SP [id number] BCBS [place] PPO 302/307 [id number] SP [id number] BCBS [place] PPO 302/307 [id number] SP [id number] MEDICARE [id number] SP [id number] N59 BLUE CROSS BLUE SHIELD -O/P [id number] 18 [id number] MEDICARE [id number] SP [id number] A MEDICARE C [id number] S [id number] N59 EXCELLUS BCBS B [id number] S TNY [id number] BCBS 2.16840.1.496098.3.441 [id number] Blue Cross/Bl ue Shield [id number] Medicare [id number] [id number] Medicare Part B [id number] BCBS 2.0.1.667858.3.441 [id number] Blue [employer] Shield 2.0.1.110043.3.441 ANSI-Medicare Part B [id number] ANSI-Commercial [id number]-[id number] ANSI-Medicare Part B [id number] ANSI-Commercial [id number]-q259-28m2-k41i-k57yhanul86v [id number]-y211-74z1-r00j-[id number] MEDICARE PI PI [facility] PI PI Medicare Medicare Primary [id number]. [id number] Self [id number] ANSI-Commercial [id number]-[id number] ANSI-Medicare Part B [id number] ANSI-Medicare Part B [id number] ANSI-Commercial [id number]-[id number]-[id number]-0191-[id number] ANSI-Commercial [id number] ANSI-Medicare Part B [id number] ANSI-Medicare Part B [id number] ANSI-Commercial [id number]-[id number] [id number]-j12t-2y01-26df-[id number] ANSI-Commercial [id number]-1382-81jo-t2jf-483z27862uki [id number]-0292-87wt-r3mz-[id number] ANSI-Medicare Part B [id number] ANSI-Commercial [id number]-[id number]-[id number]-118l-[id number] ANSI-Medicare Part B [id number] ANSI-Commercial [id number]-u778-4r9e-k47c-[id number]-n250-8x7k-q41g-[id number] ANSI-Medicare Part B [id number] Medicare Natl Gov't Servi Medigap Part B [id number] Self [id number] BCBS/[employer] [id number]. [id number] Self [id number] ANSI-Commercial [id number]-[id number] ANSI-Medicare Part B [id number] Problems, Conditions, and Diagnoses Code Display Name Description Problem Type Effective Dates Data Source(s) G37283 Personal history of nicotine dependence Personal history of nicotine dependence Diagnosis 07/14/2020 08:00:00 AM EDT [facility] H2511 Age-related nuclear cataract, right eye Age-related nuclear cataract, right eye Diagnosis 07/14/2020 08:00:00 AM [facility] Z1152 ENCOUNTER FOR SCREENING FOR COVID-19 ENCOUNTER F OR SCREENING FOR COVID-19 Diagnosis [facility]47[facility] Ill-defined and unknown cause of mortali ty Ill-defined and unknown cause of mortality Diagnosis 06/20/2020 08:23:00 AM [facility] Z538 Procedure and treatment not carried out for other reasons Procedure and treatment not carried out for other reasons Diagnosis 06/09/2020 08:45:00 AM [facility] U82463 Nicotine dependence, other tobacco produ ct, uncomplicated Nicotine dependence, other tobacco product, uncomplicated Diagnosis 06/09 08:45:00 AM [facility] H2512 Age-related nuclear cataract, left eye A ge-related nuclear cataract, left eye Diagnosis 05/26/2020 06:39:00 AM [facility] D02239 Encounter for other preprocedural examin ation Encounter for other preprocedural examination Diagnosis 05/21/2020 08:21:00 AM [facility] N40.0 [id number] Enlarged prostate Problem 12/22/2020 12:00:0 0 AM EDT eCW1 ([facility]) R33.9 [id number] Urinary retention Problem 11/17/2020 12:00:0 0 AM EDT eCW1 ([facility]) K59.00 [id number] Constipation, unspecified constipation ty pe Problem 11/14/2020 12:00:00 AM EDT eCW1 ([facility]) J43.9 [id number] Pulmonary emphysema, unspecified emphysem a type Problem 09/28/2020 12:00:00 AM EDT eCW1 ([facility]) E78.00 [id number] Pure hypercholesterolemia Problem 03/30/2020 12:00:00 AM EST eCW1 ([facility]) E04.9 [id number] Enlarged thyroid Problem 02/23/2020 12:00:00 AM EST eCW1 ([facility]) F17.200 [id number] Smoker Problem 2020 12:00:00 AM ES T eCW1 ([facility]) Surgeries/Procedures Procedure Description Date Indications Data Source(s) Bronchospasm Evaluation 01/31/2021 12:00:00 AM EST MEDENT ([facility], ) Plethysmography Determination Lung Volumes & Per Airway Resi st 01/31/2021 12:00:00 AM EST MEDENT ([facility], ) DIFFUSING CAPACITY 01/31/2021 12:00:00 AM EST MEDENT ([facility], ) Spirometry 01/30/2021 12:00:00 AM EST M EDENT ([facility], ) OFFICE OUTPATIENT VISIT 25 MINUTES 01/30/2021 12:00:00 AM EST MEDENT ([facility], ) OFFICE OUTPATIENT VISIT 25 MINUTES 01/27/2021 12:00:00 AM EST MEDENT ([facility], [facility]) OFFICE OUTPATIENT VISIT 25 MINUTES 01/07/2021 12:00:00 AM EDT MEDENT ([facility], [facility]) Imm: Flublok Quadrivalent 18 years & older 0.5mL IM Influenz a 12/22/2020 12:00:00 AM EDT eCW1 ([facility]) Voiding Trial 12/08/2020 12:00:00 AM EDT eCW1 ([facility]) BLDR IRRIGATION SMPL LAVAGE&/INSTLJ 12/08/2020 12:00:0 0 AM EDT eCW1 ([facility]) EKG 12-LEAD - CMAXX REPORT <td>EKG 12-LEAD - CMAXX REPORT</td><td></td><td>11/22/2020 12:41 PM EDT</td><td></td><td></td> 11/22/2020 12:41:17 PM T [facility] EKG 12-LEAD <td>EKG 12-LEAD</td><td>Rout ine</td><td>11/22/2020 12:41 PM EDT</td><td> Coronary artery disease involving [place] coronary artery of [place] heart without angina pectoris</td><td></td> 11/22/2020 12:41:17 PM EDT Coronary artery disease involving [place] coronary artery of [place] heart without angina pectoris [facility] Coronary artery disease involving [place] coronary artery of [place] heart without angina pectoris OFFICE OUTPATIENT VISIT 15 MINUTES 10/24/2020 12:00:00 AM EDT MEDENT ([facility], [facility]) OFFICE OUTPATIENT VISIT 15 MINUTES 10/20/2020 12:00:00 AM EDT MEDENT ([facility]) Med: Derm 1% Lidocaine with Epinephrine Injection Intr adermally to marked areas 08/24/2020 12:00:00 AM EDT eC ([facility]) STRESS TEST, PHARMACOLOGICAL WITH NUC ME D MYOCARDIAL PERFUSION SPECT (REST/STRESS) <td>STRESS TEST, PHARMACOLOGICAL WITH NU C MED MYOCARDIAL PERFUSION SPECT (REST/STRESS)</td><td>Routine</td><td>07/12/2020 2:02 PM EDT</td><td> Coronary artery disease involving little river coronary artery of [place] heart without angina pectoris History of coronary artery bypass graft Mixed hyperlipidemia Essential hypertension Myocardial infarction of inferior wall Abdominal aortic aneurysm (AAA) without rupture</td><td> </td> 07/12/2020 02:02:34 PM EDT Abdominal aortic aneurysm (AAA) without ruptureMyocardial infarction of inferior wallEssential hypertensionMixed hyperlipidemiaHistory of coronary artery bypass graftCoronary artery disease involving [place] river coronary artery of [place] heart without angina pectoris [facility] Abdominal aortic aneurysm (AAA) without rupture Myocardial infarction of inferior wall Essential hypertension Mixed hyperlipidemia History of coronary artery bypass graft Coronary artery disease involving [place] coronary artery of [place] heart without angina pectoris Staple Removal 06/16/2020 12:00:00 AM EDT eCW ([facility]) Suture Removal 06/10/2020 12:00:00 AM EDT eCW1 ([facility]) Med: Derm Lidocaine with Epinephrine Inj ection 1% with 2 ml sodium bicarbonate Intradermally to marked areas 06/02/2020 12:00:00 AM EDT eCW1 ([facility]) OFFICE OUTPATIENT VISIT 15 MINUTES 05/30/2020 12:00:00 AM EDT MEDENT ([facility], [facility]) Results ID Date Data Source [id number] 01/30/2021 08:44:00 AM EST MEDENT ([facility], ) Name Value Range Interpretation Code Description Data Saida rce(s) Supporting Document(s) PDFReport Laboratory test result MEDENT ([facility], ) FVC-Pred 4.37 L MEDENT ([facility], ) FVC-%Pred-Pre 87 L MEDENT ([facility]) FVC-Pre 3.81 L MEDENT ([facility]) Fev1-Pre 3.12 L MEDENT ([facility]) Fev1-Pred 3.13 L MEDENT ([facility]) FVC-LLN 3.38 L MEDENT ([facility]) Fev1-LLN 2.29 L MEDENT ([facility]) Fev1-%Pred-Pre 99 L MEDENT ([facility]) Fev6-Pred 4.09 L MEDENT ([facility]) Fev6-%Pred-Pre 92 L MEDENT ([facility]) Fev6-Pre 3.80 L MEDENT ([facility], ) Fev6-LLN 3.13 L MEDENT ([facility]) [id number]-Dfza 72 % MEDENT ([facility]) Fke3qyd-%Pred-Pre 114 % MEDENT ([facility]) Ivl4ias-Kpm 82 % MEDENT ([facility]) Xkx1ejv-LZZ 62 % MEDENT ([facility]) Kzh6gch-Dxa 100 % MEDENT ([facility], ) Vbq4zrs-Qpfh 94 % MEDENT ([facility], ) Jgg1qvf-%Pred-Pre 106 % MEDENT ([facility]) FEFMax-Pred 7.69 L/E/sec MEDENT ([facility]) FEFMax-Pre 9.19 L/E/sec MEDENT ([facility]) FEFMax-LLN 5.23 L/E/sec MEDENT ([facility]) FEFMax-%Pred-Pre 119 L/E/sec MEDENT ([facility]) [id number] 2.16 L/E/sec MEDENT ([facility]) Ils9040-Cgj 3.02 L/E/sec MEDENT ([facility]) Oiz6299-%Pred-Pre 139 L/E/sec MEDENT ([facility]) Vuv7553-NBQ 0.47 L/E/sec MEDENT ([facility]) [id number]-Nynf 76 % MEDENT ([facility]) ExpTime-Pre 7.49 sec MEDENT ([facility]) Swf0qme5-Pvo 82 % MEDENT ([facility]) Htd8iyl9-%Pred-Pre 107 % MEDENT ([facility]) Tls3qxq8-ACM 67 % MEDENT ([facility]) ID Date Data Source CBC with Differential 01/09/2021 12:00:00 AM EST eCW1 ([facility]) Name Value Range Interpretation Code Description Data Saida rce(s) Supporting Document(s) 3.56 4.30-6.10 RED BLOOD COUNT eCW1 ([facility]) 10.0 4.0-10.0 WHITE BLOOD COUNT eCW1 ([facility]) 90.2 80.0-96.0 MEAN CORPUSCULAR VOLUME e CW1 ([facility]) 9.9 13.5-17.5 HEMOGLOBIN eCW1 ([facility]) 32.1 42.0-52.0 HEMATOCRIT eCW1 ([facility]) 17.7 11.5-14.5 RED CELL DISTRIBUTION WID TH eCW1 ([facility]) 30.8 32.0-36.5 MEAN CORPUSCULAR HGB CONC eCW1 ([facility]) 27.8 27.0-33.0 MEAN CORPUSCULAR HEMOGLOB IN eCW1 ([facility]) 83.8 36.0-66.0 NEUTROPHILS % W1 ([facility]) 239 150-450 PLATELET COUNT, AUTOMATED eCW1 ([facility]) 9.1 24.0-44.0 LYMPH % eCW1 ([facility]) 0.4 0.0-3.0 EOS % eCW1 ([facility]) 5.9 2.0-8.0 MONO % eCW1 ([facility]) 0.2 0.0-1.0 BASO % eCW1 ([facility]) 0.0 0.0-0.5 EOS # eCW1 ([facility]) 0.6 0.0-0.8 MONO # eCW1 ([facility]) 0.9 1.5-5.0 LYMPH # eCW1 ([facility]) 8.4 1.5-8.5 NEUTROPHILS # eCW1 ([facility]) 0.0 0.0-0.2 BASO # eCW1 ([facility]) ID Date Data Source VITB12 & FOL 01/09/2021 12:00:00 AM EST eCW1 ([facility]) Name Value Range Interpretation Code Description Data Saida rce(s) Supporting Document(s) 348 VITAMIN B12 LEVEL eCW1 ([facility]) 5.5 FOLATE eCW1 ([facility]) ID Date Data Source FREE T4 & TSH PANEL 01/09/2021 12:00:00 AM EST eCW1 ([facility]) Name Value Range Interpretation Code Description Data Saida rce(s) Supporting Document(s) 0.535 0.358-3.740 THYROID STIMULATING HORM ONE eCW1 ([facility]) 1.03 0.76-1.46 FREE T4 eCW1 ([facility]) ID Date Data Source FERRITIN 01/09/2021 12:00:00 AM EST eCW1 ([facility]) Name Value Range Interpretation Code Description Data Saida rce(s) Supporting Document(s) 33 26-388 FERRITIN eCW1 ([facility]) ID Date Data Source Comprehensive Metabolic Profile (CMP) 01/09/2021 12:00:00 AM EST eCW1 ([facility]) Name Value Range Interpretation Code Description Data Saida rce(s) Supporting Document(s) 20 7-18 BLOOD UREA NITROGEN eCW1 ([facility]) 86 70-100 GLUCOSE, FASTING eCW1 ([facility]) 0.72 0.70-1.30 CREATININE FOR GFR eCW1 ([facility]) 142 136-145 SODIUM LEVEL eCW1 ([facility]) > 60.0 >42 GLOMERULAR FILTRATION RATE eCW 1 ([facility]) 4.7 3.5-5.1 POTASSIUM SERUM eCW1 ([facility]) 109 98-107 CHLORIDE LEVEL eCW1 ([facility]) 9.3 8.8-10.2 CALCIUM LEVEL eCW1 ([facility]) 30 21-32 CARBON DIOXIDE LEVEL eCW1 ([facility]) 18 7-37 AST/SGOT eCW1 ([facility]) 79 45-117 ALKALINE PHOSPHATASE eCW1 ([facility]) 0.3 0.2-1.0 BILIRUBIN,TOTAL eCW1 ([facility]) 19 12-78 ALT/SGPT eCW1 ([facility]) 3.3 3.2-5.2 ALBUMIN eCW1 ([facility]) 6.9 6.4-8.2 TOTAL PROTEIN eCW1 ([facility]) 0.9 ALBUMIN/GLOBULIN RATIO eCW1 ([facility]) ID Date Data Source NT-PRO BNP 01/09/2021 12:00:00 AM EST eCW1 ([facility]) Name Value Range Interpretation Code Description Data Saida rce(s) Supporting Document(s) 388 <450 NT-PRO BNP eCW1 ([facility]) ID Date Data Source [id number] 01/07/2021 12:00:00 AM EDT [facility] Name Value Range Interpretation Code Description Data Saida rce(s) Supporting Document(s) SARS-CoV2 Rapid Antigen Negative [facility] This lab was reported by Debby Pierce. ID Date Data Source CBC - Complete Blood Count 12/08/2020 12:00:00 AM EDT eCW1 ( [facility]) Name Value Range Interpretation Code Description Data Saida rce(s) Supporting Document(s) 9.4 13.5-17.5 HEMOGLOBIN eCW1 ([facility]) 3.33 4.30-6.10 RED BLOOD COUNT eCW1 ([facility]) 7.0 4.0-10.0 WHITE BLOOD COUNT eCW1 ([facility]) 88.9 80.0-96.0 MEAN CORPUSCULAR VOLUME e CW1 ([facility]) 29.6 42.0-52.0 HEMATOCRIT eCW1 ([facility]) 31.8 32.0-36.5 MEAN CORPUSCULAR HGB CONC eCW1 ([facility]) 28.2 27.0-33.0 MEAN CORPUSCULAR HEMOGLOB IN eCW1 ([facility]) 18.4 11.5-14.5 RED CELL DISTRIBUTION WID TH eCW1 ([facility]) 199 150-450 PLATELET COUNT, AUTOMATED eCW1 ([facility]) ID Date Data Source [id number] 11/22/2020 03:34:09 PM EDT [facility] Name Value Range Interpretation Code Description Data Saida rce(s) Supporting Document(s) [facility] UZICFv4pHdMSYbAfr6MeSfGdSTUcVV8hfqg9G1R1fPJxQ6OmzPGgi5lxH5PjJ9NfOEHhJKAOEU3RqMHd jb2 [file] e+XnAGaVO+arsalan/gt44FGwPi5N6zd6FsrZF3FXv6xzQz3zwPqjy8OHGaTat7GQhb+ywEne46EG5UPJ07w gkxlglXIJhxU4oO1qbXE1QjsI20qB4HHvAsGv5r3SMGS/+xrsb2WG5Z0M9O5albpYmi1j4yV2S+Y9F0S 7zj25GmrSlw7K223nlrsQ5J4lgmjcHCO8RhvEXvh8w Cj8c8wCAkn9pZh1ZCaZqVTP7Tfrykp5NIrdasL8U449vPyXNGg3htAEq1bBd7bMd6mWm8ExoMQmZ6TIe hQq6OieuheFgLWcxUt+TFfz0aLtqabSBBZ1wgwL9+ZBeLzksd55CAa6I8QX32WD+Oxy0iV6+1ml+2tnF ZH3GdnwgliL951dXWEqstYxk+z95vtQalYS9IslGXM GqYNo7/IQ3+QKpBDBeUF77cRLlJ7swySxh3EifFjPZc5xNpY/iIMltblDd/Xvz8RJkXocRt3TSONdaav NHbQvZ9K1AVsjpalFvexnFeJlgCpWwKhs5UaSkyoCN+IJmN6oEC6pmbg3nCLD3RWjm8Oi6l1dcX1wgdk IkDrv5vcDIKcgmlNQ45XaXu1tdat7AsCeryv7W8ZgM 8Xoa9D4a15f+K7Vhi/e5Zog5Ikd8OwFzUsd6h6mFzOYIeNcStCzx8ZpQFe/a3K9cl1tlylXZtiu7TW3+ YtTYMqHow6IpaCB9qhrjR5k/S5Ja1pFQa4n8K3Z2Wzfou6yhUTqTZJjno68nOfY502xPe/ePMXb/7izS 4+My2PzMrYmAcYF08d1norMIvXlItRwtQGY5uXC35X iyD0zdD11e0+2ZL17Wo6JDdCI4yqXp3g6jcu4uhU1jn5nNO8cprqSwRlGqo36yWCw+suixm9zIskwOtk 1Z244tXFL6f7hL+78E7bsSe97fTvb0mSFglcCckYia2D3uEd2yedBHRbJc7i3+5o2r3D0kauXbswESb7 UbbtFdh043RafGe3EEdW/OF0nLm8bIq9hgIjD0yhXe ptPlrRsDa+health and safety trainer+health and safety trainer+health and safety trainer+health and safety trainer+uVsvJp3leyreGazmZhzpj2cew5cbcmv78Mf+7Da+8QsD8kvuX/168z [file] 5NApyyc11J6L56HPcT6y4Y9ig65u+JdB2N4rlg54TE h/RG8aJlyRp/t6zHHYm31mFewuV1l48Fd660+z9jp0CjoF+7A6o61xgkL9vtaNfWnqY4ceQbtt3o/G6/ Mnx9rRgmN3HOjmV55d4VxE7FCe6Tu9+U21D7UZojousrs707+E5R97N0QZzpbzucf/5dx/5dx/yuY37X Mb/teR31fU275caa30rBg+vwuw6/6/C7vtG/wO86/K 0L5sh7arv1u8Q/Ar/r8LsOv+yTYaE8OV2H4Banvuzcmz1+1+U4CL7C5BmzqcxN3BG+1+F3N/zuht/d8L sb+xn2o+uN+1Ljrt7DtFMXhYbqZOe5hHzRfvqIQcopFbt5nFYSC7eW311njQAoTgnKArwYq3OA+qVdfr oBF6UY74fo4fv5ncZuj9aD+0EkffIuv/tGysrvZg+9 y+/lrLT3cS7SrNvHBX+5u+5R6b7YG3x24R0YwTDk5gttJDGb5UzHNb/tazae9yR2jpJsiSw78tlmelPg 9Xouu9SDh/tLEnkJQsPNSaOfcHJyMwiPurd4JAscUqZwdiuQHtczM6ddPZl/+0CsDVl5mDFxWTj50mIK 07Y49i6et7y/9YP59htLr46usu31f90n60sl6pzv00 1Pqn/ZE+2fbn3Y420Lo/0M29S/bEP/XqrwPY4VeN4g4Y+G/wZY6uv3CET/a+x0Ao7lcY/ZmN/dmN/dmN /dmN/p6Mzj47gw35lz73pq50wv68lc07uj81fk+1z39s0q0N/dmN/yi0KOiHHkEXyzaFfWz+2l8y8b+3 t8hucemSdyBQ+6sS6j15efauv4fjEpR+jGKj9lzC8l B4xRMoo4797z605Yt8pqx1ou/+7G/k5i5FFgl+j46U36M1K0G0wrWqipfBRcUaG3mh3q8Gk1z+5r3nuC SZhj11I561vg7qQuX1vUDLV9tr/y8MbbjhiE9i/b2M+p199TA2U6pW13jDUKNQuOvXevs4mAGJR3BEDG 6MMKTmLJTWn52E07ahBLjw/J93N6bAwSlTrL6k+B82 qB/Julio C/gzV09vS/cfC44qE22xW59lN22jC65xZ65kZ66uQ02dF60nD90gR87nK87bSEmiE22ZYiHgZTb 88VUpOEFhJMvgSidWH44QePWJFM9IrPIJuFWOgAEAtWLAuAcWuBSk69wAK45VA06JD+xkC+xkC+xkC+x Leslie+xkC+xkC+azqvqwF1I3S3Z4F6X2R1C9T6V+N0cA6 KWbbSQEzbn4iHxTdQmiBEKkOCvzSnh4SmclrFmJEmG2JwteuKrJBbR9VkxlfRfSX5qVG6pUU9pROaW0R Susy/Q2A/Q2A/Q2A/P9iqPiAOvNdkhrFbe1Q69hP1wydOO4NJpFILQ4Knxmef5YCon4AYng4WycRAWLc2 [file] 8KOLuq3ph1587dc98e81HizK/fj6832gfyX/vj8v7X 0++WW+uP+ryjbfe9Q7+/W36wp9/9InnH6+d9j5y04sXdb2gm/SHFXf7RB1nw1Sied7mdyKy+0euyLP55 aXdgkusL72c1I23pd4kf8w+9af/YP6HppRLtiU7z03Bbu6f6veqkgznDw74U1z9rbb2LgXBK0161JI35 6f0goDb8mVU9sCwLnYzOZdvpBe/ODes8x5huUWm3Gw LCEahDRvoTR4PW28k6JvnwPrik36FV2rLDwmLpe2MbLd8wPh7brpTKvj/94meTNI67hW62AoEN2EH8ql 6qj3u1F/ep39sphw/05Qb2awaO88MgUQ+/+8vSe5bGiir4Ij1UFJXbi317awRd2Aupdq51Ly3G10v46J Z3T7/0845MyEAHzp7c57w/NgqcXzh4oPXj+vG7w7w+ dkRFrq2oZ9594d08A1632vr0wdcEzytFyAt89dY2C6LP8v2Howsjb6N0dEwhInIJeQA91mlRnyZoEsP0 7medpFYc+tC1M5RNnYiikkgRMl/38WvdB9/o7j5qf2p5hcb9j9Wbh6p8mi+0o4X+iwve2oWja24SwgXR /p9PchB4hX/1L32pf+lL3xt7+u3KWB6pH4a5KmvG1W q2QjnR9+5xu4797d6bWWFGD2VNnyFqVaOvspposbvTTU2VGt1X+ne1qS6myCqC5OVd/xfp+9Ls5O9e/c iW90QjdwpkyJ84/K0aaNYzMr62A7x8rO6lk603U6YMIRDmdzudrPQaPla4UgsdBmBCIctchdz0DQ1gP+ ukk78tRAUjSau3pgW6rbJ8p7K+OFP9gWx26KrfZClk 66KWcq2s+8+Wjjzl59s9KVP76DNbFZSbst2pBY/JtaErikR9NaeHf+QwC1Aeu29cHt2yUBz3eKzseg6s wQvsNShp0avUYtRWYSzKvnuyvG756gMH+j3vFV8ff2dRaLXzhuHF6Dy5qEu30Nng1gCm9VzVtWxMfEXz Material Expeditor/Oew14e8PjEj/3wmD8xeP0B7jkZR05ty2S6Siy7G [file] x4+/5PP7z9+Mf/9fZ//+mHf//hxz//eeYd7lk4/md//PFff/+note keeper/zwL2//7X+/ff7Dn/70+9/9X3/z9u X3//SuV980++f/0zlF8W6//fbHH9/qZyo/W490/GlNw107+/Wv/sU46h7q3KB8C3/42UfOrJQDy/UO/+ U9lJaVJE739h2Ehrq5p5zoPa/L4qGhi9ke2zzc13h+ VNa5MUqFElQBZ+9t+01/8lbJ7hL4hky//Di4m3mtif595c4+/d7Gf/n2jx++e28Sv/q4l284AX344Gpn 5F+3Qo5umvp87eqossdjJl6a9XezikBklrm+auO/fX/of/v2p+///MNHd39/F80nyKjxe/9CK0I8I5Ye Z49015r+efv9j3/+4U//z/f/9hduf/vz49vv//48w/ jp3W/lO9321f7x/uP9v//+jz/+4XAa54vCmc8v4GA/8N3P/uG73/NZ33YMot4lZqGJ3khcQNtfc+Lcev +KA/sE83n6noTts/c2qczYz1chiNwx9/+/P/z7f+08m4BE11Eidw8aS32gD++30992/+8//fNf/+Ts+0 H86vt/++kW97irQ2//x+++//fff//jT66/XT2v3//4 0+kalgC3l//tP1/7+PCbP/7xDz//CXqb+uUff/c+7GACczJKIouyJvX5D370J809/e/e/20U832t5cvn sc/69z+/t7V/4Q+8tvz6tcql+evv//sPb/H3i63413nA2cDF88W/fXXtfm+1zVu0z32QtibAd5/3rvX3 6spVu4kvi/r8zfcljHD4XujCt80+9tnXv/nq/dzX8r F3+jzS7p/6/xHhIh7iYbOfXCR4ivXwjCndxzYnSmcFCAqfIOOzGmm2RK5KyVKtSKFbA7J7CRXvuy4tKG ZhHIUrdTMwRgDaDWYMNF8PoYYgEV1WDKz6ZNOoYVKxToSaPGMqsjP0PHMtBENsKUTpH6HxwtXijPRsJM AgUj4+CD4lm1WnCtRoGPPcZof4AC7NsPDgPH9HsOGj kA2tqeVcQ526fmOhURLuGtkyb0GvDFviRNZDSN5HGOF3PPE8VNIwWn5+XW2lt2EdKpWpEVOwInn1ME3V kBQzt8AbKV1YE9SxIAVmAHRWZFN0a4KdCESvopcysgivM5NlCRW4lO0yCFF9JJRhIPtgSMZtPOwxAKQ2 WuPgKIuwJBYcOCHoKOBeXCAuAPg4bCDxCI3ZB3PaCA HyQTVEENXtwgPoGn0wWXqXDTsOB8cwPDKQNsdYFAJiNLD1UvEvZD6JdLUgATL3OLiTLANZOZgPVYdwOa Mdt5K9XPEbX0PgJRXdrfLiFAMVJPitJaruJT3bcEcytipjJ6VpsWTaROOQKSHdQPBzUKSzHNHgO7Afy5 R5V2BaVFgPWTUXEYoDBIfaZyO1d94rbrWOFERhFHGu ID4+YA7ds1OgRt7BDSXaRU5sgum9BR1BfGBoUA1LZMxrrcQxN2qjfvOcXoRjHZXJFS1eV7DbxA79JRW+ WmOaFJ6glok1btDePxJiVLUwEWQlNRQxRJdyAEHqBAJrSLPqYNM4GVD6NRGbVoWePWBvWxC9JVRvAORe ITPnegOAICFrMSM3EqBmWsUuAXHcILSdEPabLMUwOQ MxWuh3FGVhSJQrQP3nSaEpSADrWJSdDVPmArP4WpQmPvGZCHEtUAWqXZGwBfNkIUGaBHDeZZsoSFFsDY JwPVh6LUEpNPHvTO6kUnQySOXuPNArUDSqNHQcTXAposEPWFHbJSZqDLI5KWOtCYIeAHLoSTrvVHYbEY QmLOY3GUPoLYWmXY5yRzEzPXDePZQ0ZbYuDJKeWEXe hpJYQKXiEUYaOCF8CSPgPCZvGIMoUAgoXOZpSCEgDxO7AZTbJNFaIR6sNqQlDPFhNEZ8UNKmPWMlKKSs ntMWFUDbVWXuYOs5GiJgCDLkMKQuEHwvAYBdFTOcYHfgKUKnYFKfQA5fAzNeIQImONWuVTOcLKFlGGNh dkBVLEWoNJNbMZE0WkPzQXVaQCCeMUszWLPtVSZkIH K3ZACsBNTvUR7jEaVjHIMzVeCxUUptQRLeYBBacpAWBDUlANYqMECwVKTnNYAnMGUqKEipRDTuUCXjJc Z7MVXiNACgVL9vQjBcVDSxDPI2HOMmWRSoSKDsfmIYQNZhTKQcHOZaCGH4UGDuUSIgHHg8peJodBFcTl f2Qz9OcVhxAVD0Ss5PdrYuVBPcZGELSy5Dq962XF UgMCBSCgo+CftiyIHjtNwxEPCOAzR7OAeYTWOHC2L= ID Date Data Source [id number] 11/22/2020 02:29:16 PM EDT [facility] Name Value Range Interpretation Code Description Data Saida rce(s) Supporting Document(s) Progress Note [facility] TLLJKg0kQyQRPhKs50/YSUgtUHJlr5YhIRfiXRo8SYpkIFCsW7BkGKN9eP0dAMH8GUaZHvRyXzUtJRGi lbm [file] VyP1GrEFPsFhDaNuyjJX7xNTCXGx2+EWtetCOprQwxGGLZElG7ByC2KCnuKBWBBy9Q ID Date Data Source CT ABD/PEL w/IV & Oral Contrast 11/14/2020 12:00:00 AM EDT e CW1 ([facility]) Name Value Range Interpretation Code Description Data Saida rce(s) Supporting Document(s) CT ABD/PEL w/IV & Oral Contras t eCW1 ([facility]) ID Date Data Source URINE CULTURE 11/14/2020 12:00:00 AM EDT eCW1 ([facility]) Name Value Range Interpretation Code Description Data Saida rce(s) Supporting Document(s) URINE CULTURE eCW1 ([facility]) ID Date Data Source CBC with Auto Differential 11/14/2020 12:00:00 AM EDT eCW1 ( [facility]) Name Value Range Interpretation Code Description Data Saida rce(s) Supporting Document(s) 9.9 4.0-10.0 WHITE BLOOD COUNT eCW1 ([facility]) 3.82 4.30-6.10 RED BLOOD COUNT eCW1 ([facility]) 10.9 13.5-17.5 HEMOGLOBIN eCW1 ([facility]) 88.2 80.0-96.0 MEAN CORPUSCULAR VOLUME e CW1 ([facility]) 33.7 42.0-52.0 HEMATOCRIT eCW1 ([facility]) 28.5 27.0-33.0 MEAN CORPUSCULAR HEMOGLOB IN eCW1 ([facility]) 17.0 11.5-14.5 RED CELL DISTRIBUTION WID TH eCW1 ([facility]) 214 150-450 PLATELET COUNT, AUTOMATED eCW1 ([facility]) 32.3 32.0-36.5 MEAN CORPUSCULAR HGB CONC eCW1 ([facility]) 75.7 36.0-66.0 NEUTROPHILS % eCW1 ([facility]) 0.5 0.0-3.0 EOS % eCW1 ([facility]) 12.8 24.0-44.0 LYMPH % eCW1 ([facility]) 10.2 2.0-8.0 MONO % eCW1 ([facility]) 0.6 0-3.0 IMMATURE GRANULOCYTE % eCW1 ([facility]) 7.5 1.5-8.5 NEUTROPHILS # eCW1 ([facility]) 0.0 0-0 NUCLEATED RED BLOOD CELL % eCW 1 ([facility]) 0.2 0.0-1.0 BASO % eCW1 ([facility]) 0.1 0.0-0.5 EOS # eCW1 ([facility]) 1.0 0.0-0.8 MONO # eCW1 ([facility]) 1.3 1.5-5.0 LYMPH # eCW1 ([facility]) 0.0 0.0-0.2 BASO # eCW1 ([facility]) ID Date Data Source PSA SCREENING 11/14/2020 12:00:00 AM EDT eCW1 ([facility]) Name Value Range Interpretation Code Description Data Saida rce(s) Supporting Document(s) 3.65 < 4.00 PSA SCREENING W1 ([facility]) ID Date Data Source LIPASE 11/14/2020 12:00:00 AM EDT eCW1 ([facility]) Name Value Range Interpretation Code Description Data Saida rce(s) Supporting Document(s) [id number] LIPASE eCW1 ([facility]) ID Date Data Source [id number] 09/14/2020 04:45:00 AM EDT [facility] Name Value Range Interpretation Code Description Data Saida rce(s) Supporting Document(s) Microorganism or agent identified in Unspecified speci men Negative for SARS-CoV-2 RNA. [facility] This lab was ordered by [facility] and reported by Department of Pathology and Laboratory Medicine at [facility]. ID Date Data Source [id number] 09/13/2020 12:00:00 AM EDT [facility] Name Value Range Interpretation Code Description Data Saida rce(s) Supporting Document(s) SARS coronavirus 2 RdRp gene Negative Rapid COVID (Point of Care) [facility] This lab was ordered by [facility] and reported by [facility]. ID Date Data Source [id number] 07/18/2020 09:08:00 [place] [address] OPERATIVE SUMMARYNAME: DANIE MARTINEZ DATE OF : 1940TTENDING PHYS: Flori Jensen Jr., MD DATE: 07/14/20 MR#: [id number] OF PROCEDURE: 07/14/2020REOPERATIVE DIAGNOSIS: Visually significant cataract, [...] unit was then introduced, and using a pbbnfl-pru-yntjlph technique, the nucleus and epi- nucleus were [...] Thelens centered well.COMPLICATIONS: None.BLOOD LOSS: Negligible. [address] [place] [address] OPERATIVE SUMMARYNAME: DANIE MARTINEZ DATE OF : 1940TTENDING PHYS: Flori Jensen Jr., MD DATE: 07/14/20 MR#: [id number]: Flori Jensen Jr., MD 07/18/20 08:49DT: TOM 07/18/20 09:08DS: Flori Jensen Jr., MD 08/11/20 11:15 2 Name Value Range Interpretation Code Description Data Saida rce(s) Supporting Document(s) ID Date Data Source [id number] 07/14/2020 02:10:00 PM EDT [facility] Name Value Range Interpretation Code Description Data Saida rce(s) Supporting Document(s) SARS-CoV-2 (COVID-19) RNA [Presence] in Respiratory specimen by AISHA with probe detection Not Detected [facility] This lab was ordered by [facility] and reported by [employer]. ID Date Data Source [id number] 07/09/2020 08:00:00 AM EDT [facility] Name Value Range Interpretation Code Description Data Saida rce(s) Supporting Document(s) SARS coronavirus 2 RNA Not Detected [facility] This lab was ordered by [facility] and reported by [employer]. ID Date Data Source [id number] 07/10/2020 01:27:00 PM EDT [facility] Name Value Range Interpretation Code Description Data Saida rce(s) Supporting Document(s) SARS-CoV-2, AISHA Not Detected Not Detected [facility] This nucleic acid amplification test was developed and its performancecharacteristics determined by [employer]. Nucleic acidamplification tests include RT-PCR and TMA. [...] assay. SARS-CoV-2, AISHA 2 DAY TAT Performed [facility] ID Date Data Source [id number] 06/02/2020 02:21:00 [place] [address] OPERATIVE SUMMARYNAME: DANIE MARTINEZ DATE OF : 1940TTENDING PHYS: Flori Jensen Jr., MD DATE: 05/26/20 MR#: [id number] OF PROCEDURE: 05/26/2020REOPERATIVE DIAGNOSIS: Visually significant cataract, [...] unit was then introduced, and using a uaghej-xmg-bmhuzpo technique, the nucleus and epi- nucleus were [...] Thelens centered well.COMPLICATIONS: None.BLOOD LOSS: Negligible. [address] [place] [address] OPERATIVE SUMMARYNAME: DANIE MARTINEZ DATE OF : 1940TTENDING PHYS: Flori Jensen Jr., MD DATE: 05/26/20 MR#: [id number]: Flori Jensen Jr., MD 06/02/20 13:26DT: TOM 06/02/20 14:21DS: Flori Jensen Jr., MD 06/09/20 10:01 2 Name Value Range Interpretation Code Description Data Saida rce(s) Supporting Document(s) ID Date Data Source [id number] 06/04/2020 08:51:00 AM EDT [facility] Name Value Range Interpretation Code Description Data [facility] rce(s) Supporting Document(s) SARS coronavirus 2 RNA Not Detected [facility] This lab was ordered by [facility] lissy and reported by [facility]. ID Date Data Source [id number] 06/06/2020 06:45:00 AM EDT [facility] Name Value Range Interpretation Code Description Data [facility] rce(s) Supporting Document(s) SARS-CoV-2, AISHA Not Detected Not Detected [facility] This nucleic acid amplification test was developed and its performancecharacteristics determined by [employer]. Nucleic acidamplification tests include RT-PCR and TMA. [...] assay. SARS-CoV-2, AISHA 2 DAY TAT Performed [facility] ID Date Data Source [id number] 05/21/2020 08:24:00 AM EDT [facility] Name Value Range Interpretation Code Description Data Saida rce(s) Supporting Document(s) SARS coronavirus 2 RNA Not Detected [facility] This lab was ordered by [facility] lissy and reported by [facility]. ID Date Data Source [id number] 05/23/2020 07:05:00 AM EDT [facility] Name Value Range Interpretation Code Description Data Saida rce(s) Supporting Document(s) SARS-CoV-2, AISHA Not Detected Not Detected [facility] This nucleic acid amplification test was developed and its performancecharacteristics determined by [employer]. Nucleic acidamplification tests include RT-PCR and TMA. [...] in this assay. ID Date Data Source [id number] 05/20/2020 01:38:17 PM EDT [facility] Name Value Range Interpretation Code Description Data Saida rce(s) Supporting Document(s) Progress Note [facility] VNZKZe3iDxZFAuGa76/ODZedPPGtm5SlSKciCTg2EAhkYLDhQ0YwLJK8bT9xJJW5NXmCOhPwDkRsJcZ1 lbm [file] YtC/a8Ts9KJV/ByxRW4DrRgiKafuki7Wh3+Jean Carlos/Ofz95ytv5tsejNiBd7e/7i1u29r/WK9KdvU0FhvE [file] IDEgMCBSDQovSURbPGZjYTYyMTZkNmEzMmYyMTJhMD J9YUOxTbZrEEMuD8GeGbP6WnEoAkSjTzP8XVHjXvAvEoPwZHW0JCTsWWNzPhPlDAU+WV6yADj+Pg0Kc3 BwhmV3kzKzOQj5UpCaHB4AEQGFZ4KWNa== ID Date Data Source [id number] 03/15/2020 12:00:00 AM EST [facility] Joel Tellez MD Patient Name: EVELYN HELTON Date of : 1940te 6 Date of Exam: JANAE Gupta [id number]#: Fax: [id number] EXAM: CTA - ABDOMEN & [...] Other findings as described above.Accredited by the [employer] in [place].OSMANI Patton/Kim chaparro for referring JUAN HELTON to our office. Electronically Signed - CRISTAL LEAVITT DO 03/15/20 16:24 Name Value Range Interpretation Code Description Data Saida rce(s) Supporting Document(s) ID Date Data Source [facility] CT Chest without contrast 02/05/2020 12:00:00 AM EST eC W1 ([facility]) Name Value Range Interpretation Code Description Data Saida rce(s) Supporting Document(s) [facility] CT Chest without contrast eCW1 ([facility]) ID Date Data Source [id number] 01/15/2020 01:35:00 PM EST [facility] Name Value Range Interpretation Code Description Data Saida rce(s) Supporting Document(s) SARS coronavirus 2 RNA [facility] This lab was ordered by [facility] and reported by [facility]. Procedure Social History Code Duration Value Status Description Data Source(s ) 01/30/2021 12:00:00 AM EST Current Cigar Smoker 1 Kirk y completed Current Cigar Smoker 1 Daily MEDENT ([facility], ) Smoking 01/09/2021 12:00:00 AM EST Former Smoker completed Former Smoker eCW1 ([facility]) Smoking 12/22/2020 12:00:00 AM EDT Former Smoker completed Former Smoker eCW1 ([facility]) Smoking 12/08/2020 12:00:00 AM EDT Former Smoker completed Former Smoker eCW1 ([facility]) Smoking 12/08/2020 12:00:00 AM EDT Former Smoker completed Former Smoker eCW1 ([facility]) Smoking 12/08/2020 12:00:00 AM EDT Former Smoker completed Former Smoker eCW1 ([facility]) Alcohol intake 11/22/2020 12:00:00 AM EDT Current drinker of al cohol (finding) completed Current drinker of alcohol (finding) [facility] Tobacco use and exposure 11/22/2020 12:00:00 AM EDT Never used co mpleted Never used [facility] Smoking 11/22/2020 12:00:00 AM EDT Current some day smoker com pleted Current some day smoker [facility] Smoking 11/17/2020 12:00:00 AM EDT Former Smoker completed Former Smoker eCW1 ([facility]) Smoking 11/17/2020 12:00:00 AM EDT Former Smoker completed Former Smoker eCW1 ([facility]) Smoking 11/17/2020 12:00:00 AM EDT Former Smoker completed Former Smoker eCW1 ([facility]) Smoking 11/14/2020 12:00:00 AM EDT Former Smoker completed Former Smoker eCW1 ([facility]) Smoking 11/14/2020 12:00:00 AM EDT Former Smoker completed Former Smoker eCW1 ([facility]) Smoking 11/14/2020 12:00:00 AM EDT Former Smoker completed Former Smoker eCW1 ([facility]) Smoking 10/24/2020 12:00:00 AM EDT Former Smoker completed Former Smoker eCW1 ([facility]) Smoking 09/28/2020 12:00:00 AM EDT Former Smoker completed Former Smoker eCW1 ([facility]) Smoking 09/28/2020 12:00:00 AM EDT Former Smoker completed Former Smoker eCW1 ([facility]) Smoking 08/24/2020 12:00:00 AM EDT Former Smoker completed Former Smoker eCW1 ([facility]) Smoking 08/24/2020 12:00:00 AM EDT Former Smoker completed Former Smoker eCW1 ([facility]) Smoking 06/02/2020 12:00:00 AM EDT Former Smoker completed Former Smoker eCW1 ([facility]) Smoking 06/02/2020 12:00:00 AM EDT Former Smoker completed Former Smoker eCW1 ([facility]) Smoking 06/02/2020 12:00:00 AM EDT Former Smoker completed Former Smoker eCW1 ([facility]) Smoking 06/02/2020 12:00:00 AM EDT Former Smoker completed Former Smoker eCW1 ([facility]) Alcohol intake 05/20/2020 12:00:00 AM EDT Current drinker of al cohol (finding) completed Current drinker of alcohol (finding) [facility] Smoking 05/12/2020 12:00:00 AM EST Former Smoker completed Former Smoker eCW1 ([facility]) Smoking 05/12/2020 12:00:00 AM EST Former Smoker completed Former Smoker eCW1 ([facility]) Smoking 03/30/2020 12:00:00 AM EST Former Smoker completed Former Smoker eCW1 ([facility]) Smoking 02/23/2020 12:00:00 AM EST Former Smoker completed Former Smoker eCW1 ([facility]) Smoking 02/23/2020 12:00:00 AM EST Former Smoker completed Former Smoker eCW1 ([facility]) Smoking 2020 12:00:00 AM EST Former Smoker completed Former Smoker eCW1 ([facility]) Vital Signs ID Date Data Source UNK Name Value Range Interpretation Code Description Data Source(s) Heart rate 53 /min 53 /min [facility] ([facility]) Systolic blood pressure 102 mm[Hg] 102 mm[Hg] [facility] ([facility]) Diastolic blood pressure 62 mm[Hg] 62 mm[Hg] [facility] ([facility]) Oxygen saturation in Arterial blood by Pulse oximetry 97 % 97 % [facility] ([facility]) Body height 72 [in_i] 72 [in_i] [facility] ([facility]) 6'0" Body weight 204.00 [lb_av] 204.00 [lb_av] [facility] Body mass index (BMI) [Ratio] 27.7 kg/m2 27.7 k g/m2 [facility] ([facility]) [place] body weight 178 [lb_av] 178 [lb_av] [facility] Body weight 92.534 kg 92.534 kg [facility] ([facility]) Body surface area Derived from formula 2.15 m2 2.15 m2 [facility] ([facility]) Systolic blood pressure 148 mm[Hg] 148 mm[Hg] M [facility] ([facility], [facility]) Diastolic blood pressure 74 mm[Hg] 74 mm[Hg] [facility] ([facility], [facility]) Heart rate 105 /min 105 /min [facility] ([facility], [facility]) Respiratory rate 16 /min 16 /min [facility] ( [facility], [facility]) Oxygen saturation in Arterial blood by Pulse oximetry 96 % 96 % [facility] ([facility], [facility]) Body temperature 98.0 [degF] 98.0 [degF] [facility] ([facility], [facility]) Body weight 195.00 [lb_av] 195.00 [lb_av] MED[facility] T ([facility], [facility]) Body height 70.5 [in_i] 70.5 [in_i] [facility] ([facility], [facility]) 5'10.50" Body mass index (BMI) [Ratio] 27.6 kg/m2 27.6 k g/m2 [facility] ([facility], [facility]) Body weight 204.4 [lb_av] 204.4 [lb_av] eCW1 ([facility]) Body height 70 [in_i] 70 [in_i] eCW1 ([facility]) Body mass index (BMI) [Ratio] 29.33 kg/m2 29.33 kg/m2 W1 ([facility]) Heart rate 67 /min 67 /min eCW1 ([facility]) Respiratory rate 18 /min 18 /min eCW1 ([facility]) Body temperature 97.8 [degF] 97.8 [degF] eCW1 ( [facility]) Systolic blood pressure 120 mm[Hg] 120 mm[Hg] e CW1 ([facility]) Diastolic blood pressure 70 mm[Hg] 70 mm[Hg] eCW1 ([facility]) Systolic blood pressure 130 mm[Hg] 130 mm[Hg] M EDENT ([facility], [facility]) Diastolic blood pressure 64 mm[Hg] 64 mm[Hg] [facility] ([facility], [facility]) Heart rate 54 /min 54 /min [facility] ([facility], [facility]) Respiratory rate 18 /min 18 /min [facility] ( [facility], [facility]) Oxygen saturation in Arterial blood by Pulse oximetry 98 % 98 % [facility] ([facility], [facility]) Body temperature 97.8 [degF] 97.8 [degF] [facility] ([facility], [facility]) Body weight 195.00 [lb_av] 195.00 [lb_av] MEDEN T ([facility], [facility]) Body height 70.5 [in_i] 70.5 [in_i] [facility] ([facility], [facility]) 5'10.50" Body mass index (BMI) [Ratio] 27.6 kg/m2 27.6 k g/m2 [facility] ([facility], [facility]) Body weight 199.8 [lb_av] 199.8 [lb_av] eCW1 ([facility]) Body height 70 [in_i] 70 [in_i] eCW1 ([facility]) Body mass index (BMI) [Ratio] 28.67 kg/m2 28.67 kg/m2 eCW1 ([facility]) Heart rate 83 /min 83 /min eCW1 ([facility]) Respiratory rate 18 /min 18 /min eCW1 ([facility]) Body temperature 97.2 [degF] 97.2 [degF] eCW1 ( [facility]) Systolic blood pressure 140 mm[Hg] 140 mm[Hg] e CW1 ([facility]) Diastolic blood pressure 72 mm[Hg] 72 mm[Hg] eCW1 ([facility]) Body weight 196.8 [lb_av] 196.8 [lb_av] eCW1 ([facility]) Body height 70 [in_i] 70 [in_i] eCW1 ([facility]) Body mass index (BMI) [Ratio] 28.23 kg/m2 28.23 kg/m2 eCW1 ([facility]) Heart rate 76 /min 76 /min eCW1 ([facility]) Respiratory rate 18 /min 18 /min eCW1 ([facility]) Body temperature 97.0 [degF] 97.0 [degF] eCW1 ( [facility]) Systolic blood pressure 124 mm[Hg] 124 mm[Hg] e CW1 ([facility]) Diastolic blood pressure 66 mm[Hg] 66 mm[Hg] eCW1 ([facility]) Body weight 195 [lb_av] 195 [lb_av] eCW1 ([facility]) Body weight 88.45 kg 88.45 kg eCW1 ([facility]) Body height 70 [in_i] 70 [in_i] eCW1 ([facility]) Body mass index (BMI) [Ratio] 27.98 kg/m2 27.98 kg/m2 eCW1 ([facility]) Heart rate 85 /min 85 /min eCW1 ([facility]) Respiratory rate 18 /min 18 /min eCW1 ([facility]) Body temperature 96.2 [degF] 96.2 [degF] eCW1 ( [facility]) Systolic blood pressure 122 mm[Hg] 122 mm[Hg] e CW1 ([facility]) Diastolic blood pressure 64 mm[Hg] 64 mm[Hg] eCW1 ([facility]) Body weight 200 [lb_av] 200 [lb_av] eCW1 ([facility]) Body weight 90.72 kg 90.72 kg eCW1 ([facility]) Body height 70 [in_i] 70 [in_i] eCW1 ([facility]) Body mass index (BMI) [Ratio] 28.69 kg/m2 28.69 kg/m2 eCW1 ([facility]) Heart rate 65 /min 65 /min eCW1 ([facility]) Respiratory rate 18 /min 18 /min eCW1 ([facility]) Body temperature 96.7 [degF] 96.7 [degF] eCW1 ( [facility]) Systolic blood pressure 118 mm[Hg] 118 mm[Hg] e CW1 ([facility]) Diastolic blood pressure 62 mm[Hg] 62 mm[Hg] eCW1 ([facility]) Body weight 197 [lb_av] 197 [lb_av] eCW1 ([facility]) Body weight 89.36 kg 89.36 kg eCW1 ([facility]) Body height 70 [in_i] 70 [in_i] eCW1 ([facility]) Body mass index (BMI) [Ratio] 28.26 kg/m2 28.26 kg/m2 eCW1 ([facility]) Body weight 197.0 [lb_av] 197.0 [lb_av] eCW1 ([facility]) Body weight 89.36 kg 89.36 kg eCW1 ([facility]) Body height 70 [in_i] 70 [in_i] eCW1 ([facility]) Body mass index (BMI) [Ratio] 28.26 kg/m2 28.26 kg/m2 eCW1 ([facility]) Systolic blood pressure 124 mm[Hg] 124 mm[Hg] e CW1 ([facility]) Diastolic blood pressure 62 mm[Hg] 62 mm[Hg] eCW1 ([facility]) Heart rate 59 /min 59 /min [facility] ([facility], [facility]) Respiratory rate 14 /min 14 /min [facility] ( [facility], [facility]) Oxygen saturation in Arterial blood by Pulse oximetry 98 % 98 % [facility] ([facility], [facility]) Body temperature 97.5 [degF] 97.5 [degF] [facility] ([facility], [facility]) Body weight 190.00 [lb_av] 190.00 [lb_av] MED[facility] T ([facility], [facility]) Body height 70.5 [in_i] 70.5 [in_i] [facility] ([facility], [facility]) 5'10.50" Body mass index (BMI) [Ratio] 26.9 kg/m2 26.9 k g/m2 [facility] ([facility], [facility]) Systolic blood pressure 136 mm[Hg] 136 mm[Hg] M EDENT ([facility], [facility]) Diastolic blood pressure 65 mm[Hg] 65 mm[Hg] [facility] ([facility], [facility]) Heart rate 67 /min 67 /min [facility] ([facility], [facility]) Respiratory rate 13 /min 13 /min [facility] ( [facility], [facility]) Oxygen saturation in Arterial blood by Pulse oximetry 97 % 97 % [facility] ([facility], [facility]) Body temperature 96.7 [degF] 96.7 [degF] [facility] ([facility], [facility]) Body weight 190.00 [lb_av] 190.00 [lb_av] MEDEN T ([facility], [facility]) Body height 70.5 [in_i] 70.5 [in_i] [facility] ([facility], [facility]) 5'10.50" Body mass index (BMI) [Ratio] 26.9 kg/m2 26.9 k g/m2 [facility] ([facility], [facility]) Systolic blood pressure 143 mm[Hg] 143 mm[Hg] M EDENT ([facility], [facility]) Diastolic blood pressure 73 mm[Hg] 73 mm[Hg] [facility] ([facility], [facility]) Body weight 192.2 [lb_av] 192.2 [lb_av] eCW1 ([facility]) Body height 70 [in_i] 70 [in_i] eCW1 ([facility]) Body mass index (BMI) [Ratio] 27.57 kg/m2 27.57 kg/m2 eCW1 ([facility]) Heart rate 83 /min 83 /min eCW1 ([facility]) Respiratory rate 18 /min 18 /min eCW1 ([facility]) Body temperature 97.5 [degF] 97.5 [degF] eCW1 ( [facility]) Systolic blood pressure 120 mm[Hg] 120 mm[Hg] e CW1 ([facility]) Diastolic blood pressure 70 mm[Hg] 70 mm[Hg] eCW1 ([facility]) Body weight 200 [lb_av] 200 [lb_av] eCW1 ([facility]) Body height 70 [in_i] 70 [in_i] eCW1 ([facility]) Body mass index (BMI) [Ratio] 28.69 kg/m2 28.69 kg/m2 eCW1 ([facility]) Body weight 199.4 [lb_av] 199.4 [lb_av] eCW1 ([facility]) Body height 70 [in_i] 70 [in_i] eCW1 ([facility]) Body mass index (BMI) [Ratio] 28.61 kg/m2 28.61 kg/m2 eCW1 ([facility]) Systolic blood pressure 138 mm[Hg] 138 mm[Hg] e CW1 ([facility]) Diastolic blood pressure 70 mm[Hg] 70 mm[Hg] eCW1 ([facility]) Systolic blood pressure 136 mm[Hg] 136 mm[Hg] M EDENT ([facility], [facility]) Diastolic blood pressure 80 mm[Hg] 80 mm[Hg] [facility] ([facility], [facility]) Heart rate 68 /min 68 /min [facility] ([facility], [facility]) Respiratory rate 16 /min 16 /min [facility] ( [facility], [facility]) Oxygen saturation in Arterial blood by Pulse oximetry 99 % 99 % [facility] ([facility], [facility]) Body temperature 98.7 [degF] 98.7 [degF] [facility] ([facility], [facility]) Body weight 190.00 [lb_av] 190.00 [lb_av] MED[facility] T ([facility], [facility]) Body height 70.5 [in_i] 70.5 [in_i] [facility] ([facility], [facility]) 5'10.50" Body mass index (BMI) [Ratio] 26.9 kg/m2 26.9 k g/m2 [facility] ([facility], [facility]) Body weight 200 [lb_av] 200 [lb_av] eCW1 ([facility]) Body height 70 [in_i] 70 [in_i] eCW1 ([facility]) Body mass index (BMI) [Ratio] 28.69 kg/m2 28.69 kg/m2 eCW1 ([facility]) Heart rate 58 /min 58 /min eCW1 ([facility]) Respiratory rate 18 /min 18 /min eCW1 ([facility]) Body temperature 97.4 [degF] 97.4 [degF] eCW1 ( [facility]) Systolic blood pressure 110 mm[Hg] 110 mm[Hg] e CW1 ([facility]) Diastolic blood pressure 60 mm[Hg] 60 mm[Hg] eCW1 ([facility]) Body mass index (BMI) [Ratio] 27.98 kg/m2 27.98 kg/m2 eCW1 ([facility]) Body temperature 97.5 [degF] 97.5 [degF] eCW1 ( [facility]) Systolic blood pressure 128 mm[Hg] 128 mm[Hg] e CW1 ([facility]) Diastolic blood pressure 70 mm[Hg] 70 mm[Hg] eCW1 ([facility]) Body weight 195 [lb_av] 195 [lb_av] eCW1 ([facility]) Body height 70 [in_i] 70 [in_i] eCW1 ([facility]) Heart rate 75 /min 75 /min eCW1 ([facility]) Respiratory rate 18 /min 18 /min eCW1 ([facility]) Body mass index (BMI) [Ratio] 28.29 kg/m2 28.29 kg/m2 eCW1 ([facility]) Body height 70 [in_i] 70 [in_i] eCW1 ([facility]) Body weight 197.2 [lb_av] 197.2 [lb_av] eCW1 ([facility]) Heart rate 64 /min 64 /min eCW1 ([facility]) Respiratory rate 18 /min 18 /min eCW1 ([facility]) Body temperature 97.2 [degF] 97.2 [degF] eCW1 ( [facility]) Systolic blood pressure 120 mm[Hg] 120 mm[Hg] e CW1 ([facility]) Diastolic blood pressure 72 mm[Hg] 72 mm[Hg] eCW1 ([facility]) Body weight 197.2 [lb_av] 197.2 [lb_av] eCW1 ([facility]) Body height 70 [in_i] 70 [in_i] eCW1 ([facility]) Body mass index (BMI) [Ratio] 28.29 kg/m2 28.29 kg/m2 eCW1 ([facility]) Heart rate 64 /min 64 /min eCW1 ([facility]) Respiratory rate 18 /min 18 /min eCW1 ([facility]) Body temperature 97.2 [degF] 97.2 [degF] eCW1 ( [facility]) Systolic blood pressure 120 mm[Hg] 120 mm[Hg] e CW1 ([facility]) Diastolic blood pressure 72 mm[Hg] 72 mm[Hg] eCW1 ([facility]) ID Date Data Source [id number] 08/11/2020 11:17:49 AM EDT [facility] Name Value Range Interpretation Code Description Data Source(s) WEIGHT RECORDED 186.00 pounds 186.00 pounds [facility] Height 70 Inches 070 Inches [facility] ID Date Data Source [id number] 06/09/2020 10:03:05 AM EDT [facility] Name Value Range Interpretation Code Description Data Source(s) WEIGHT RECORDED 190.00 pounds 190.00 pounds [facility] Height 70 Inches 070 Inches [facility] ID Date Data Source [id number] 05/20/2020 01:38:17 PM EDT [facility] Name Value Range Interpretation Code Description Data Source(s) WEIGHT RECORDED [address] [facility] Body height Measured 70 in 70 in [facility] Patient Treatment Plan of Care Planned Activity Planned Date Details Description Data Source (s) Trelegy Ellipta 100-62.5-25 MCG/INH 01/10/2021 12:00:00 AM EST eCW1 ([facility]) ferrous sulfate 325 MG Delayed Release Oral Tablet 01/10/2021 12 :00:00 AM EST eCW1 ([facility]) Docusate Sodium 100 MG Oral Capsule [Colace] 01/10/2021 12:00:00 AM EST eCW1 ([facility]) Tamsulosin hydrochloride 0.4 MG Oral Capsule [Flomax] 11/17/2020 12:00:00 AM EDT eCW1 ([facility]) Tamsulosin hydrochloride 0.4 MG Oral Capsule [Flomax] 11/17/2020 12:00:00 AM EDT eCW1 ([facility]) Tamsulosin hydrochloride 0.4 MG Oral Capsule [Flomax] 11/17/2020 12:00:00 AM EDT eCW1 ([facility]) Tamsulosin hydrochloride 0.4 MG Oral Capsule 11/17/2020 12:00:00 AM [facility] Losartan Potassium 50 MG Oral Tablet 10/31/2020 12:00:00 AM [facility] Albuterol Sulfate HFA 108 (90 Base) MCG/ ACT Inhalation Aerosol Solution (PROVENTIL HFA) 09/29/2020 12:00:00 AM EDT [facility] 7 ACTUAT umeclidinium 0.0625 MG/ACTUAT Dry Powder Inha ler [Incruse] 09/28/2020 12:00:00 AM EDT eCW1 ([facility]) Losartan Potassium 50 MG Oral Tablet 09/28/2020 12:00:00 AM EDT eCW1 ([facility]) 200 ACTUAT Albuterol 0.09 MG/ACTUAT Metered Dose Inhal er [Ventolin] 09/28/2020 12:00:00 AM EDT eCW1 ([facility]) 7 ACTUAT umeclidinium 0.0625 MG/ACTUAT Dry Powder Inha ler [Incruse] 09/28/2020 12:00:00 AM EDT eCW1 ([facility]) Losartan Potassium 50 MG Oral Tablet 09/28/2020 12:00:00 AM EDT eCW1 ([facility]) 200 ACTUAT Albuterol 0.09 MG/ACTUAT Metered Dose Inhal er [Ventolin] 09/28/2020 12:00:00 AM EDT eCW1 ([facility]) 7 ACTUAT umeclidinium 0.0625 MG/ACTUAT Dry Powder Inha ler [Incruse] 09/28/2020 12:00:00 AM EDT eCW1 ([facility]) clopidogrel 75 MG Oral Tablet 06/13/2020 12:00:00 AM EDT [facility]
--- NOTE | 2021-02-07 09:03 | REPVR ---
PROCEDURE INFORMATION: Exam: CT Head Without Contrast Exam date and time: 02/07/2021 8:13 AM Age: 81 years old Clinical indication: Speech disturbance; Unspecified; Additional info: Stroke symptoms TECHNIQUE: Imaging protocol: Computed tomography of the head without contrast. Radiation optimization: All CT scans at this facility use at least one of these dose optimization techniques: automated exposure control; mA and/or kV adjustment per patient size (includes targeted exams where dose is matched to clinical indication); or iterative reconstruction. Other technique: STROKE PROTOCOL was implemented. COMPARISON: CT Head without contrast 11/10/2015 9:48 AM FINDINGS: Brain: There is no acute intracranial hemorrhage or mass effect. Mild diffuse volume loss is within the range of normal for patient age. There are small vessel ischemic changes within the periventricular and subcortical white matter, but the normal momin/white matter delineation is maintained. Cerebral ventricles: No ventriculomegaly. Paranasal sinuses: Visualized sinuses are unremarkable. No fluid levels. Mastoid air cells: Visualized mastoid air cells are well aerated. Vasculature: Coarse calcific atherosclerotic changes of the left supraclinoid internal carotid and left middle cerebral artery have progressed in the interval. Bones/joints: Unremarkable. No acute fracture. Soft tissues: Unremarkable. IMPRESSION: No acute hemorrhage or edema. ASSESSMENT: ASPECTS ([facility] Stroke Program Early CT Score) is 10. Electronically signed by: Vinita Crowell On 02/07/2021 09:03:05 AM
[2021-02-07] MEDS ORDERED: ALBU8.5H INH (09:10)
[2021-02-07] MEDS ORDERED: VITA-172 PO (09:10)
[2021-02-07] MEDS ORDERED: ALLO100T PO (09:10)
[2021-02-07] MEDS ORDERED: LOSA50TA88 PO (09:10)
[2021-02-07] MEDS ORDERED: MONT10TA10 PO (09:10)
[2021-02-07] MEDS ORDERED: TREL1AER INH (09:10)
[2021-02-07] MEDS ORDERED: INCR1INH INH (09:10)
[2021-02-07] MEDS ORDERED: PRIM50TA6 PO (09:10)
[2021-02-07] MEDS ORDERED: TAMS1CAP17 PO (09:10)
[2021-02-07] MEDS ORDERED: PLAV1TAB2 PO (09:10)
[2021-02-07] MEDS ORDERED: FLUTISP NARES (09:10)
[2021-02-07] MEDS ORDERED: ROSU40TA4 PO (09:10)
[2021-02-07] MEDS ORDERED: PANT-23 PO (09:10)
[2021-02-07] MEDS ORDERED: GABA600T4 PO (09:10)
[2021-02-07] MEDS ORDERED: ERGO500029 PO (09:10)
[2021-02-07] MEDS ORDERED: ASPI81TA26 PO (09:10)
[2021-02-07 09:11] LABS: HEMATOCRIT 33.9 % (42.0-52.0); HEMOGLOBIN 10.6 g/dl (13.5-17.5); MEAN CORPUSCULAR HEMOGLOBIN 26.8 pg (27.0-33.0); MEAN CORPUSCULAR HGB CONC 31.3 g/dl (32.0-36.5); MEAN CORPUSCULAR VOLUME 85.8 fl (80.0-96.0); PLATELET COUNT, AUTOMATED 254 10^3/uL (150-450); RED BLOOD COUNT 3.95 10^6/uL (4.30-6.10); WHITE BLOOD COUNT 7.9 10^3/uL (4.0-10.0)
[2021-02-07] MEDS ORDERED: HOME MED LIST COMPLETE! XX SCH (09:15)
[2021-02-07 09:36] LABS: BLOOD UREA NITROGEN 16 MG/DL (7-18); CALCIUM LEVEL 9.1 MG/DL (8.8-10.2); CARBON DIOXIDE LEVEL 29 MEQ/L (21-32); CHLORIDE LEVEL 107 MEQ/L (98-107); GLOMERULAR FILTRATION RATE > 60.0 (>35); GLUCOSE, FASTING 86 MG/DL (70-100); POTASSIUM SERUM 4.9 MEQ/L (3.5-5.1); SODIUM LEVEL 140 MEQ/L (136-145)
[2021-02-07 10:08] LABS: RSV AMPLIFICATION NEGATIVE (NEGATIVE)
[2021-02-07] MEDS ORDERED: ALBUTEROL 90 MCG/ACT 8GM HFA INHALER INH PRN (10:15)
[2021-02-07] MEDS ORDERED: ACETAMINOPHEN TAB 650MG DOSE (2X325MG) PO PRN (10:15)
--- OUTSIDE RECORDS SUMMARY | 2021-02-07 10:35 | CCD ---
Author Author [facility] Organization [facility] Address Unknown Phone Unavailable Care Team Providers Care Grey Washer Name Role Phone NO, PCP Unavailable Unavailable Morrison, Molly JOGGLE PRESS OPERATOR Unavailable Unavailable Morrison, Molly JOGGLE PRESS OPERATOR Unavailable Unavailable Morrison, Molly JOGGLE PRESS OPERATOR Unavailable Unavailable Morrison, Molly JOGGLE PRESS OPERATOR Unavailable Unavailable Morrison, Molly JOGGLE PRESS OPERATOR Unavailable Unavailable Morrison, Molly JOGGLE PRESS OPERATOR Unavailable Unavailable Morrison, Molly JOGGLE PRESS OPERATOR Unavailable Unavailable Morrison, Molly JOGGLE PRESS OPERATOR Unavailable Unavailable Morrison, Molly JOGGLE PRESS OPERATOR Unavailable Unavailable Morrison, Molly JOGGLE PRESS OPERATOR Unavailable Unavailable Morrison, Molly JOGGLE PRESS OPERATOR Unavailable Unavailable Morrison, Molly JOGGLE PRESS OPERATOR Unavailable Unavailable Morrison, Molly JOGGLE PRESS OPERATOR Unavailable Unavailable LETTIERE, A KATIANA PA Unavailable [...] KATIANA PA Unavailable Unavailable DARION, C ERENDIRA JOGGLE PRESS OPERATOR Unavailable Unavailable DARION, C ERENDIRA JOGGLE PRESS OPERATOR Unavailable Unavailable DARION, C ERENDIRA JOGGLE PRESS OPERATOR Unavailable Unavailable DARION, C ERENDIRA JOGGLE PRESS OPERATOR Unavailable Unavailable DARION, C ERENDIRA JOGGLE PRESS OPERATOR Unavailable Unavailable DARION, C ERENDIRA JOGGLE PRESS OPERATOR Unavailable Unavailable DARION, C ERENDIRA JOGGLE PRESS OPERATOR Unavailable Unavailable DARION, C ERENDIRA JOGGLE PRESS OPERATOR Unavailable Unavailable DARION, C ERENDIRA JOGGLE PRESS OPERATOR Unavailable Unavailable DARION, C ERENDIRA JOGGLE PRESS OPERATOR Unavailable Unavailable DARION, C ERENDIRA JOGGLE PRESS OPERATOR Unavailable Unavailable DARION, C ERENDIRA JOGGLE PRESS OPERATOR Unavailable Unavailable DARION, C ERENDIRA JOGGLE PRESS OPERATOR Unavailable Unavailable DARION, C ERENDIRA JOGGLE PRESS OPERATOR Unavailable Unavailable DARION, C ERENDIRA JOGGLE PRESS OPERATOR Unavailable Unavailable DARION, C ERENDIRA JOGGLE PRESS OPERATOR Unavailable Unavailable DARION, C ERENDIRA JOGGLE PRESS OPERATOR Unavailable Unavailable DARION, C ERENDIRA JOGGLE PRESS OPERATOR Unavailable Unavailable DARION, C ERENDIRA JOGGLE PRESS OPERATOR Unavailable Unavailable DARION, C ERENDIRA JOGGLE PRESS OPERATOR Unavailable Unavailable DARION, C ERENDIRA JOGGLE PRESS OPERATOR Unavailable Unavailable DARION, C ERENDIRA JOGGLE PRESS OPERATOR Unavailable Unavailable DARION, C ERENDIRA JOGGLE PRESS OPERATOR Unavailable Unavailable DARION, C ERENDIRA JOGGLE PRESS OPERATOR Unavailable Unavailable DARION, C ERENDIRA JOGGLE PRESS OPERATOR Unavailable Unavailable DARION, C ERENDIRA JOGGLE PRESS OPERATOR Unavailable Unavailable DARION, C ERENDIRA JOGGLE PRESS OPERATOR Unavailable Unavailable DARION, C ERENDIRA JOGGLE PRESS OPERATOR Unavailable Unavailable DARION, C ERENDIRA JOGGLE PRESS OPERATOR Unavailable Unavailable DARION, C ERENDIRA JOGGLE PRESS OPERATOR Unavailable Unavailable DARION, C ERENDIRA JOGGLE PRESS OPERATOR Unavailable Unavailable RICHARDSON CHEATHAM PA Unavailable Unavailable CHAPARRITA, RICHARDSON PA Unavailable Unavailable CHAPARRITA, RICHARDSON PA Unavailable Unavailable CHAPARRITA, RICHARDSON PA Unavailable Unavailable CHAPARRITA, RICHARDSON PA Unavailable Unavailable CHPAARRITA, RICHARDSON PA Unavailable Unavailable CHAPARRITA, RICHARDSON PA [...] Mikey JR, D Flori TOSCANO Unavailable Unavailable Mieky JR, D Flori TOSCANO Unavailable Unavailable Mikey [...] Mikey JR, D Flori TOSCANO Unavailable Unavailable Imkey JR, D Flori TOSCANO Unavailable Unavailable Mikey [...] is protected by Article 27-F of the [facility] Public Health law. If you continue you may have access to information: Regarding HIV / AIDS; Provided by facilities licensed or operated by the [facility] Office of Mental Health; or Provided by the [facility] Office for People With Developmental Disabilities. If such information is present, then the following [facility] mandated warning applies: This information [...] law may result in a fine or retirement sentence or both. A general authorization for the release of medical or other information is NOT sufficient authorization for further disc losure. Allergies and Adverse Reactions Type Description Substance Reaction Status Data Source(s ) Propensity to adverse reactions NO KNOWN ALLERGIES NO KNOWN ALLERGIES [facility] No Known Drug Allergies No Known Drug Allergies [facility] Family History Family Member Name Family Member Gender Family Member Status Date o f Status Description Data Source(s) Unknown Unknown Problem MEDENT ([facility], ) Encounters Encounter Providers Location Date Indications Data Source(s ) Outpatient Attender: Noe Greer MD 05/31/2021 12:00:00 AM [facility] Outpatient Attender: Jesus Hernández/Inessa/Matthew/Aparna adams 01/30/2021 08:00:00 AM EST MEDENT ([facility]) Outpatient Attender: KATIANA griffiths 01/27/2021 01:25:00 PM EST MEDENT ([facility] Office Visit, Est Pt., Level 4 PC [address] [place] [address] 01/09/2021 12:00:00 AM EST eCW1 ([facility]) Outpatient Attender: RICHARDSON Malhotra ry 01/07/2021 08:00:00 AM EDT [facility] Outpatient [address] [facility] [place] [address] 12/22/2020 12:00:00 AM EDT eCW1 ([facility]) Unknown [address] [facility] [facility] [place] [address] 12/21/2020 12:00:00 AM EDT eCW1 ([facility]) Unknown [address] [facility] [place] [address] 12/16/2020 12:00:00 AM EDT eCW1 ([facility]) Outpatient [address] [address] 12/08/2020 12:00:00 AM EDT eCW1 ([facility]) Unknown [address] [address] 11/24/2020 12:00:00 AM EDT eCW1 ([facility]) Outpatient Attender: ERENDIRA ORLANDO NPReferrer: Addy Mclain MD [facility] 11/22/2020 12:37:13 PM EDT - 11/22/2020 01:45:31 PM ED T Atherosclerotic heart disease of [place] coronary artery without angina pectoris [facility] Atherosclerotic heart disease of [place] coronary artery without angina pectoris Outpatient 11/22/2020 12:00:00 AM [facility] Outpatient Attender: ERENDIRA ORLANDO JOGGLE PRESS OPERATOR 11/22/2020 12:00:00 AM [facility] Outpatient [address] [facility] [place] [address] 11/17/2020 12:00:00 AM EDT eCW1 ([facility]) Unknown [address] [facility] [facility] [place] [address] 11/15/2020 12:00:00 AM EDT eCW1 ([facility]) Outpatient [address] [facility] [place] [address] 11/14/2020 12:00:00 AM EDT eCW1 ([facility]) [place] [address] [address] 11/14/2020 12:00:00 AM EDT eCW1 ([facility]) [place]patient [address] [address] 11/10/2020 12:00:00 AM EDT eCW1 ([facility]) Outpatient Attender: RICHARDSON Malhotra ry 10/24/2020 02:50:00 PM EDT MEDENT ([facility]) [place] [address] [address] 10/24/2020 12:00:00 AM EDT eCW1 ([facility]) Outpatient Attender: RICHARDSON Malhotra ry 10/20/2020 08:00:00 AM EDT MEDENT ([facility]) Office Visit, Est Pt., Level 4 PC [address] [place] [address] 09/28/2020 12:00:00 AM EDT eCW1 ([facility]) [place] [address] [address] 09/27/2020 12:00:00 AM EDT eCW1 ([facility]) Postop visit [address] [facility] [place] [address] 08/25/2020 12:00:00 AM EDT eCW1 ([facility]) Outpatient [address] [address] 08/24/2020 12:00:00 AM EDT eCW1 ([facility]) Outpatient Attender: Flori Jensen JRConsultant: PCP DIANA 07/14/2020 08:00:00 AM EDT - 07/14/2020 09:53:00 AM EDT [facility] Patient discharged. Outpatient Attender: Noe Greer MDReferrer: Randall kumar MD 07/12/2020 12:00:00 AM EDT Atherosclerotic heart disease of [place] coronary artery without angina pectoris [facility] Atherosclerotic heart disease of [place] coronary artery without angina pectoris Outpatient Attender: Flori Lazcanoant: PCP NO 07/09/2020 08:47:00 AM EDT - 07/09/2020 09:47:00 AM EDT [facility] Patient discharged. Outpatient Attender: Flori Poncesuant: PCP NO 06/17/2020 11:45:59 AM EDT - 06/20/2020 08:23:00 AM EDT [facility] Patient discharged. [place] [address] [address] 06/16/2020 12:00:00 AM EDT eCW1 ([facility]) [place] [address] [address] 06/10/2020 12:00:00 AM EDT eCW1 ([facility]) [place] [address] [address] 06/10/2020 12:00:00 AM EDT eCW1 ([facility]) Outpatient Attender: Flori Garner: PCP NO 06/04/2020 09:17:00 AM EDT - 06/04/2020 10:17:00 AM EDT [facility] Patient discharged. (MMS 1) [facility] [address] [address] 06/02/2020 12:00:00 AM EDT eCW1 ([facility]) Outpatient Attender: Flori Garner: PCP NO 06/01/2020 10:31:42 AM EDT - 06/09/2020 09:15:00 AM EDT [facility] Patient discharged. Outpatient Attender: Molly blakely 05/30/2020 03:00:00 PM EDT MEDENT ([facility]) Outpatient Attender: Flori Lazcanoant: PCP NO 05/26/2020 06:39:00 AM EDT - 05/26/2020 10:45:00 AM EDT [facility] Patient discharged. Outpatient Attender: Flori Poncesultant: PCP NO 05/21/2020 08:21:00 AM EDT - 05/21/2020 09:22:00 AM EDT [facility] Patient discharged. Outpatient Attender: Noe Greer MDReferrer: Randall ukmar MD [facility] 05/20/2020 12:00:00 AM EDT - 05/20/2020 11:15:59 AM EDT Atherosclerotic heart disease of [place] coronary artery without angina pectoris [facility] Atherosclerotic heart disease of [place] coronary artery without angina pectoris Outpatient Attender: Flori Poncesultant: PCP NO 05/19/2020 01:47:59 PM EDT - 05/25/2020 06:43:00 AM EDT [facility] Patient discharged. Unknown [address], [facility] [address] 05/19/2020 12:00:00 AM EDT eCW1 ([facility]) Office Visit, Est Pt., Level 3 PC [address] [place] [address] 05/12/2020 12:00:00 AM EST eCW1 ([facility]) Office Visit, Est Pt., Level 4 PC [address] [place] [address] 03/30/2020 12:00:00 AM EST eCW1 ([facility]) Unknown [address], [facility] [address] 02/11/2020 12:00:00 AM EST eCW1 ([facility]) Office Visit, Est Pt., Level 4 PC [address] [place] [address] 2020 12:00:00 AM EST eCW1 ([facility]) Unknown [address], [facility] [address] 01/14/2020 12:00:00 AM EST eCW1 ([facility]) [place] [address] [address] 12/25/2019 12:00:00 AM EDT eCW1 ([facility]) [place] [address] [address] 12/25/2019 12:00:00 AM EDT eCW1 ([facility]) Immunizations Vaccine Date Status Description Data Source(s) COVID-19 VACCINE Moderna 01/29/2021 12:00:00 AM EST completed [employer] Vaccine Series Complete: YESThis Data wa s Submitted to [facility] Via [employer]. influenza, recombinant, quadrIvalent,injectable, prese rvative free 12/22/2020 03:54:00 PM EDT completed eCW1 ([facility]) influenza, recombinant, quadrIvalent,injectable, prese rvative free 12/22/2020 03:54:00 PM EDT completed eCW1 ([facility]) COVID-19 dose #1 given elsewhere Unspecified 03/29/2020 03:0 1:00 PM EST completed eCW1 ([facility]) COVID-19 dose #1 given elsewhere Unspecified 03/29/2020 03:0 1:00 PM EST completed eCW1 ([facility]) COVID-19 dose #1 given elsewhere Unspecified 03/29/2020 03:0 1:00 PM EST completed eCW1 ([facility]) COVID-19 dose #1 given elsewhere Unspecified 03/29/2020 03:0 1:00 PM EST completed eCW1 ([facility]) COVID-19 dose #1 given elsewhere Unspecified 03/29/2020 03:0 1:00 PM EST completed eCW1 ([facility]) COVID-19 dose #1 given elsewhere Unspecified 03/29/2020 03:0 1:00 PM EST completed eCW1 ([facility]) COVID-19 dose #1 given elsewhere Unspecified 03/29/2020 03:0 1:00 PM EST completed eCW1 ([facility]) COVID-19 dose #1 given elsewhere Unspecified 03/29/2020 03:0 1:00 PM EST completed eCW1 ([facility]) COVID-19 dose #1 given elsewhere Unspecified 03/29/2020 03:0 1:00 PM EST completed eCW1 ([facility]) COVID-19 dose #1 given elsewhere Unspecified 03/29/2020 03:0 1:00 PM EST completed eCW1 ([facility]) COVID-19(given elsewhere) Unspecified 03/29/2020 03:01:00 PM EST co mpleted eCW1 ([facility]) COVID-19 dose #1 given elsewhere Unspecified 03/29/2020 03:0 1:00 PM EST completed eCW1 ([facility]) COVID-19 dose #1 given elsewhere Unspecified 03/29/2020 03:0 1:00 PM EST completed eCW1 ([facility]) COVID-19 dose #1 given elsewhere Unspecified 03/29/2020 03:0 1:00 PM EST completed eCW1 ([facility]) COVID-19 dose #1 given elsewhere Unspecified 03/29/2020 03:0 1:00 PM EST completed eCW1 ([facility]) COVID-19 dose #1 given elsewhere Unspecified 03/29/2020 03:0 1:00 PM EST completed eCW1 ([facility]) COVID-19 dose #1 given elsewhere Unspecified 03/29/2020 03:0 1:00 PM EST completed eCW1 ([facility]) COVID-19 dose #1 given elsewhere Unspecified 03/29/2020 03:0 1:00 PM EST completed eCW1 ([facility]) COVID-19 dose #1 given elsewhere Unspecified 03/29/2020 03:0 1:00 PM EST completed eCW1 ([facility]) COVID-19 dose #1 given elsewhere Unspecified 03/29/2020 03:0 1:00 PM EST completed eCW1 ([facility]) COVID-19 dose #1 given elsewhere Unspecified 03/29/2020 03:0 1:00 PM EST completed eCW1 ([facility]) COVID-19 dose #1 given elsewhere Unspecified 03/29/2020 03:0 1:00 PM EST completed eCW1 ([facility]) COVID-19 dose #1 given elsewhere Unspecified 03/29/2020 03:0 1:00 PM EST completed eCW1 ([facility]) COVID-19 VACCINE Moderna 03/29/2020 12:00:00 AM EST completed [employer] Vaccine Series Complete: YESThis Data wa s Submitted to [facility] Via [employer]. COVID-19 dose #1 given elsewhere Unspecified 03/08/2020 03:0 1:00 PM EST completed eCW1 ([facility]) COVID-19 dose #1 given elsewhere Unspecified 03/08/2020 03:0 1:00 PM EST completed eCW1 ([facility]) COVID-19 dose #1 given elsewhere Unspecified 03/08/2020 03:0 1:00 PM EST completed eCW1 ([facility]) COVID-19 dose #1 given elsewhere Unspecified 03/08/2020 03:0 1:00 PM EST completed eCW1 ([facility]) COVID-19 dose #1 given elsewhere Unspecified 03/08/2020 03:0 1:00 PM EST completed eCW1 ([facility]) COVID-19 dose #1 given elsewhere Unspecified 03/08/2020 03:0 1:00 PM EST completed eCW1 ([facility]) COVID-19 dose #1 given elsewhere Unspecified 03/08/2020 03:0 1:00 PM EST completed eCW1 ([facility]) COVID-19 dose #1 given elsewhere Unspecified 03/08/2020 03:0 1:00 PM EST completed eCW1 ([facility]) COVID-19 dose #1 given elsewhere Unspecified 03/08/2020 03:0 1:00 PM EST completed eCW1 ([facility]) COVID-19 dose #1 given elsewhere Unspecified 03/08/2020 03:0 1:00 PM EST completed eCW1 ([facility]) COVID-19(given elsewhere) Unspecified 03/08/2020 03:01:00 PM EST co mpleted eCW1 ([facility]) COVID-19 dose #1 given elsewhere Unspecified 03/08/2020 03:0 1:00 PM EST completed eCW1 ([facility]) COVID-19 dose #1 given elsewhere Unspecified 03/08/2020 03:0 1:00 PM EST completed eCW1 ([facility]) COVID-19 dose #1 given elsewhere Unspecified 03/08/2020 03:0 1:00 PM EST completed eCW1 ([facility]) COVID-19 dose #1 given elsewhere Unspecified 03/08/2020 03:0 1:00 PM EST completed eCW1 ([facility]) COVID-19 dose #1 given elsewhere Unspecified 03/08/2020 03:0 1:00 PM EST completed eCW1 ([facility]) COVID-19 dose #1 given elsewhere Unspecified 03/08/2020 03:0 1:00 PM EST completed eCW1 ([facility]) COVID-19 dose #1 given elsewhere Unspecified 03/08/2020 03:0 1:00 PM EST completed eCW1 ([facility]) COVID-19 dose #1 given elsewhere Unspecified 03/08/2020 03:0 1:00 PM EST completed eCW1 ([facility]) COVID-19 dose #1 given elsewhere Unspecified 03/08/2020 03:0 1:00 PM EST completed eCW1 ([facility]) COVID-19 dose #1 given elsewhere Unspecified 03/08/2020 03:0 1:00 PM EST completed eCW1 ([facility]) COVID-19 dose #1 given elsewhere Unspecified 03/08/2020 03:0 1:00 PM EST completed eCW1 ([facility]) COVID-19 dose #1 given elsewhere Unspecified 03/08/2020 03:0 1:00 PM EST completed eCW1 ([facility]) COVID-19 VACCINE Moderna 03/01/2020 12:00:00 AM EST completed [employer] Vaccine Series Complete: NOThis Data was Submitted to [facility] Via [employer]. INFLUENZA VIRUS VACCINE QUADRIVAL SPLIT 2019-(65 YR [...] Doxycycline Monohydrate 100 MG Oral Capsule Doxycycline Bandera hydrate 01/27/2021 12:00:00 AM EST ORAL active M EDENT ([facility]) 200 ACTUAT Albuterol 0.09 MG/ACTUAT Metered Dose Inhal er [Proventil] Proventil HFA 01/27/2021 12:00:00 AM EST active MEDENT ([facility]) Prednisone 20 MG Oral Tablet Prednisone 01/27/2021 12:00:00 AM EST active MEDENT ([facility]) ferrous sulfate 325 MG Delayed Release O ral Tablet Ferrous Sulfate 325 (65 Fe) MG Ferrous Sulfate 325 (65 Fe) MG 01/10/2021 12:00:00 AM EST 1. 0 {tablet} active Ferrous Sulfate 325 (65 Fe) MG eCW1 ([facility]) Docusate Sodium 100 MG Oral Capsule [Colace] Colace 100 MG C olace 100 MG 01/10/2021 12:00:00 AM EST 1.0 {capsule_as_needed} active Colace 100 MG eCW1 ([facility]) 30 ACTUAT fluticasone furoate 0.1 MG/ACT UAT [...] {puff} active Trelegy Ellipta 100-62.5-25 MCG/INH eCW1 ([facility]) Amoxicillin 875 MG / Clavulanate 125 MG Oral Tablet Am oxicillin/Clavulanate Potassium 01/07/2021 12:00:00 AM EDT ORAL completed MEDENT ([facility]) benzonatate 200 MG Oral Capsule Benzonatate 01/07/2021 12:00:00 AM EDT ORAL completed MEDENT ([facility]) Prednisone 10 MG Oral Tablet Prednisone 01/07/2021 12:00:00 AM EDT ORAL completed MEDENT ([facility]) Amoxicillin 875 MG / Clavulanate 125 [...] Capsule (FLOMAX) 11/17/2020 12:00 :00 AM EDT [facility] Tamsulosin hydrochloride 0.4 MG Oral Capsule [Flomax] Flomax 0.4 MG Flomax 0.4 MG 11/17/2020 12:00:00 AM EDT 1.0 {capsule} active Flomax 0.4 MG eCW1 ([facility]) Tamsulosin hydrochloride 0.4 MG Oral Capsule [Flomax] Flomax 0.4 MG Flomax 0.4 MG 11/17/2020 12:00:00 AM EDT 1.0 {capsule} active Flomax 0.4 MG eCW1 ([facility]) Tamsulosin hydrochloride 0.4 MG Oral Capsule [Flomax] Flomax 0.4 MG Flomax 0.4 MG 11/17/2020 12:00:00 AM EDT 1.0 {capsule} active Flomax 0.4 MG eCW1 ([facility]) Tamsulosin hydrochloride 0.4 MG Oral Capsule [Flomax] Flomax 0.4 MG Flomax 0.4 MG 11/17/2020 12:00:00 AM EDT 1.0 {capsule} active Flomax 0.4 MG eCW1 ([facility]) Tamsulosin hydrochloride 0.4 MG Oral Capsule [Flomax] Flomax 0.4 MG Flomax 0.4 MG 11/17/2020 12:00:00 AM EDT 1.0 {capsule} active Flomax 0.4 MG eCW1 ([facility]) Tamsulosin hydrochloride 0.4 MG Oral Capsule [Flomax] Flomax 0.4 MG Flomax 0.4 MG 11/17/2020 12:00:00 AM EDT 1.0 {capsule} active Flomax 0.4 MG eCW1 ([facility]) Tamsulosin hydrochloride 0.4 MG Oral Capsule [Flomax] Flomax 0.4 MG Flomax 0.4 MG 11/17/2020 12:00:00 AM EDT 1.0 {capsule} active Flomax 0.4 MG eCW1 ([facility]) Tamsulosin hydrochloride 0.4 MG Oral Capsule [Flomax] Flomax 0.4 MG Flomax 0.4 MG 11/17/2020 12:00:00 AM EDT 1.0 {capsule} active Flomax 0.4 MG eCW1 ([facility]) Fluorouracil 50 MG/ML Topical Cream Fluorouracil 5 % Fluorou racil 5 % 11/10/2020 12:00:00 AM EDT 1.0 {application} active Fluorouracil 5 % eCW1 ([facility]) Fluorouracil 50 MG/ML Topical Cream Fluorouracil 5 % Fluorou racil 5 % 11/10/2020 12:00:00 AM EDT 1.0 {application} active Fluorouracil 5 % eCW1 ([facility]) Fluorouracil 50 MG/ML Topical Cream Fluorouracil 5 % Fluorou racil 5 % 11/10/2020 12:00:00 AM EDT 1.0 {application} active Fluorouracil 5 % eCW1 ([facility]) Fluorouracil 50 MG/ML Topical Cream Fluorouracil 5 % Fluorou racil 5 % 11/10/2020 12:00:00 AM EDT 1.0 {application} active Fluorouracil 5 % eCW1 ([facility]) Fluorouracil 50 MG/ML Topical Cream Fluorouracil 5 % Fluorou racil 5 % 11/10/2020 12:00:00 AM EDT 1.0 {application} active Fluorouracil 5 % eCW1 ([facility]) Fluorouracil 50 MG/ML Topical Cream Fluorouracil 5 % Fluorou racil 5 % 11/10/2020 12:00:00 AM EDT 1.0 {application} active Fluorouracil 5 % eCW1 ([facility]) 5 % 11/10/2020 12:00:00 AM EDT cream 40 APPLY TO AFFECTED AREA(S) TWO TIMES A DAY FOR 2 WEEKS APPLY TO AFFECTED AREA(S) TWO TIMES A DAY FOR 2 WEEKS SOLD: 11/17/2020 [facility] Fluorouracil 50 MG/ML Topical Cream Fluorouracil 5 % Fluorou racil 5 % 11/10/2020 12:00:00 AM EDT 1.0 {application} active Fluorouracil 5 % eCW1 ([facility]) Fluorouracil 50 MG/ML Topical Cream Fluorouracil 5 % Fluorou racil 5 % 11/10/2020 12:00:00 AM EDT 1.0 {application} active Fluorouracil 5 % eCW1 ([facility]) Fluorouracil 50 MG/ML Topical Cream Fluorouracil 5 % Fluorou racil 5 % 11/10/2020 12:00:00 AM EDT 1.0 {application} active Fluorouracil 5 % eCW1 ([facility]) Fluorouracil 50 MG/ML Topical Cream Fluorouracil 5 % Fluorou racil 5 % 11/10/2020 12:00:00 AM EDT 1.0 {application} active Fluorouracil 5 % eCW1 ([facility]) Fluorouracil 50 MG/ML Topical Cream Fluorouracil 5 % Fluorou racil 5 % 11/10/2020 12:00:00 AM EDT 1.0 {application} active Fluorouracil 5 % eCW1 ([facility]) Losartan Potassium 50 MG Oral Tablet Los tammy Potassium 50 MG Oral Tablet (COZAAR) Losartan Potassium 50 MG Oral Tablet (COZAAR) 11/01/19 12:00:00 AM EDT 50 mg Oral active Take 50 mg by murali th daily [facility] 0.3-0.1 % 10/20/2020 12:00:00 AM EDT [...] 10/20/2020 12:00:00 AM EDT AURICULAR completed MEDENT ([facility]) Amoxicillin 875 MG / Clavulanate 125 MG Oral Tablet Am oxicillin/Clavulanate Potassium 10/20/2020 12:00:00 AM EDT ORAL completed MEDENT ([facility]) Albuterol Sulfate HFA 108 (90 Base) MCG/ ACT Inhalation Aerosol Solution ([facility]FA) [id number] 09/29/2020 12:00:00 AM EDT active INHALE ONE PUFF BY MOUTH EVERY 4 HOURS NEEDED FOR SHORTNESS OF BREATH [facility] 62.5 mcg/actuation 09/29/2020 12:00:00 AM EDT [...] {puff} active Incruse Ellipta 62.5 MCG/INH eCW1 ([facility]) 200 ACTUAT Albuterol 0.09 MG/ACTUAT Mete red Dose Inhaler [Ventolin] Ventolin HFA 108 (90 Base) MCG/ACT Ventolin HFA 108 (90 Base) MCG/ACT 09/28/2020 12:00:00 AM EDT 1.0 {puff_as_needed} active Leo tolin HFA 108 (90 Base) MCG/ACT eCW1 ([facility]) Losartan Potassium 50 MG Oral Tablet Losartan Potassium 50 M G 09/28/2020 12:00:00 AM EDT 1.0 {tablet} active Lo sartan Potassium 50 MG eCW1 ([facility]) 7 ACTUAT umeclidinium 0.0625 MG/ACTUAT D ry Powder Inhaler [Incruse] Incruse Ellipta 62.5 MCG/INH Incruse Ellipta 62.5 MCG/INH 09/28/2020 12:00:00 AM EDT 1.0 {puff} active Incruse Ellipta 62.5 MCG/INH eCW1 ([facility]) 7 ACTUAT umeclidinium 0.0625 MG/ACTUAT D ry Powder Inhaler [Incruse] Incruse Ellipta 62.5 MCG/INH Incruse Ellipta 62.5 MCG/INH 09/28/2020 12:00:00 AM EDT 1.0 {puff} active Incruse Ellipta 62.5 MCG/INH eCW1 ([facility]) 7 ACTUAT umeclidinium 0.0625 MG/ACTUAT D ry Powder Inhaler [Incruse] Incruse Ellipta 62.5 MCG/INH Incruse Ellipta 62.5 MCG/INH 09/28/2020 12:00:00 AM EDT 1.0 {puff} active Incruse Ellipta 62.5 MCG/INH eCW1 ([facility]) 7 ACTUAT umeclidinium 0.0625 MG/ACTUAT D ry Powder Inhaler [Incruse] Incruse Ellipta 62.5 MCG/INH Incruse Ellipta 62.5 MCG/INH 09/28/2020 12:00:00 AM EDT 1.0 {puff} active Incruse Ellipta 62.5 MCG/INH eCW1 ([facility]) Losartan Potassium 50 MG Oral Tablet Losartan Potassium 50 M G 09/28/2020 12:00:00 AM EDT 1.0 {tablet} active Lo sartan Potassium 50 MG eCW1 ([facility]) 7 ACTUAT umeclidinium 0.0625 MG/ACTUAT D ry Powder Inhaler [Incruse] Incruse Ellipta 62.5 MCG/INH Incruse Ellipta 62.5 MCG/INH 09/28/2020 12:00:00 AM EDT 1.0 {puff} active Incruse Ellipta 62.5 MCG/INH eCW1 ([facility]) 200 ACTUAT Albuterol 0.09 MG/ACTUAT Mete red Dose Inhaler [Ventolin] Ventolin HFA 108 (90 Base) MCG/ACT Ventolin HFA 108 (90 Base) MCG/ACT 09/28/2020 12:00:00 AM EDT 1.0 {puff_as_needed} active Leo tolin HFA 108 (90 Base) MCG/ACT eCW1 ([facility]) Losartan Potassium 50 MG Oral Tablet Losartan Potassium 50 M G 09/28/2020 12:00:00 AM EDT 1.0 {tablet} active Lo sartan Potassium 50 MG eCW1 ([facility]) 7 ACTUAT umeclidinium 0.0625 MG/ACTUAT D ry Powder Inhaler [Incruse] Incruse Ellipta 62.5 MCG/INH Incruse Ellipta 62.5 MCG/INH 09/28/2020 12:00:00 AM EDT 1.0 {puff} active Incruse Ellipta 62.5 MCG/INH eCW1 ([facility]) Losartan Potassium 50 MG Oral Tablet Losartan Potassium 50 M G 09/28/2020 12:00:00 AM EDT 1.0 {tablet} active Lo sartan Potassium 50 MG eCW1 ([facility]) 200 ACTUAT Albuterol 0.09 MG/ACTUAT Mete red Dose Inhaler [Ventolin] Ventolin HFA 108 (90 Base) MCG/ACT Ventolin HFA 108 (90 Base) MCG/ACT 09/28/2020 12:00:00 AM EDT 1.0 {puff_as_needed} active Leo tolin HFA 108 (90 Base) MCG/ACT eCW1 ([facility]) 200 ACTUAT Albuterol 0.09 MG/ACTUAT Mete red Dose Inhaler [Ventolin] Ventolin HFA 108 (90 Base) MCG/ACT Ventolin HFA 108 (90 Base) MCG/ACT 09/28/2020 12:00:00 AM EDT 1.0 {puff_as_needed} active Leo tolin HFA 108 (90 Base) MCG/ACT eCW1 ([facility]) Losartan Potassium 50 MG Oral Tablet Losartan Potassium 50 M G 09/28/2020 12:00:00 AM EDT 1.0 {tablet} active Lo sartan Potassium 50 MG eCW1 ([facility]) 7 ACTUAT umeclidinium 0.0625 MG/ACTUAT D ry Powder Inhaler [Incruse] Incruse Ellipta 62.5 MCG/INH Incruse Ellipta 62.5 MCG/INH 09/28/2020 12:00:00 AM EDT 1.0 {puff} active Incruse Ellipta 62.5 MCG/INH eCW1 ([facility]) 200 ACTUAT Albuterol 0.09 MG/ACTUAT Mete red Dose Inhaler [Ventolin] Ventolin HFA 108 (90 Base) MCG/ACT Ventolin HFA 108 (90 Base) MCG/ACT 09/28/2020 12:00:00 AM EDT 1.0 {puff_as_needed} active Leo tolin HFA 108 (90 Base) MCG/ACT eCW1 ([facility]) 7 ACTUAT umeclidinium 0.0625 MG/ACTUAT D ry Powder Inhaler [Incruse] Incruse Ellipta 62.5 MCG/INH Incruse Ellipta 62.5 MCG/INH 09/28/2020 12:00:00 AM EDT 1.0 {puff} active eCW1 ([facility]) Losartan Potassium 50 MG Oral Tablet Losartan Potassium 50 M G 09/28/2020 12:00:00 AM EDT 1.0 {tablet} active eCW1 ([facility]) Losartan Potassium 50 MG Oral Tablet Losartan Potassium 50 M G 09/28/2020 12:00:00 AM EDT 1.0 {tablet} active Lo sartan Potassium 50 MG eCW1 ([facility]) 200 ACTUAT Albuterol 0.09 MG/ACTUAT Mete red Dose Inhaler [Ventolin] Ventolin HFA 108 (90 Base) MCG/ACT Ventolin HFA 108 (90 Base) MCG/ACT 09/28/2020 12:00:00 AM EDT 1.0 {puff_as_needed} active Leo tolin HFA 108 (90 Base) MCG/ACT eCW1 ([facility]) 7 ACTUAT umeclidinium 0.0625 MG/ACTUAT D ry Powder Inhaler [Incruse] Incruse Ellipta 62.5 MCG/INH Incruse Ellipta 62.5 MCG/INH 09/28/2020 12:00:00 AM EDT 1.0 {puff} active Incruse Ellipta 62.5 MCG/INH eCW1 ([facility]) 7 ACTUAT umeclidinium 0.0625 MG/ACTUAT D ry Powder Inhaler [Incruse] Incruse Ellipta 62.5 MCG/INH Incruse Ellipta 62.5 MCG/INH 09/28/2020 12:00:00 AM EDT 1.0 {puff} active Incruse Ellipta 62.5 MCG/INH eCW1 ([facility]) 200 ACTUAT Albuterol 0.09 MG/ACTUAT Mete red Dose Inhaler [Ventolin] Ventolin HFA 108 (90 Base) MCG/ACT Ventolin HFA 108 (90 Base) MCG/ACT 09/28/2020 12:00:00 AM EDT 1.0 {puff_as_needed} active Leo tolin HFA 108 (90 Base) MCG/ACT eCW1 ([facility]) 200 ACTUAT Albuterol 0.09 MG/ACTUAT Mete red Dose Inhaler [Ventolin] Ventolin HFA 108 (90 Base) MCG/ACT Ventolin HFA 108 (90 Base) MCG/ACT 09/28/2020 12:00:00 AM EDT 1.0 {puff_as_needed} active Leo tolin HFA 108 (90 Base) MCG/ACT eCW1 ([facility]) Losartan Potassium 50 MG Oral Tablet Losartan Potassium 50 M G 09/28/2020 12:00:00 AM EDT 1.0 {tablet} active Lo sartan Potassium 50 MG eCW1 ([facility]) Losartan Potassium 50 MG Oral Tablet Losartan Potassium 50 M G 09/28/2020 12:00:00 AM EDT 1.0 {tablet} active Lo sartan Potassium 50 MG eCW1 ([facility]) Losartan Potassium 50 MG Oral Tablet Losartan Potassium 50 M G 09/28/2020 12:00:00 AM EDT 1.0 {tablet} active Lo sartan Potassium 50 MG eCW1 ([facility]) Losartan Potassium 50 MG Oral Tablet Losartan Potassium 50 M G 09/28/2020 12:00:00 AM EDT 1.0 {tablet} active Lo sartan Potassium 50 MG eCW1 ([facility]) Losartan Potassium 50 MG Oral Tablet Losartan Potassium 50 M G 09/28/2020 12:00:00 AM EDT 1.0 {tablet} active Lo sartan Potassium 50 MG eCW1 ([facility]) 200 ACTUAT Albuterol 0.09 MG/ACTUAT Mete red Dose Inhaler [Ventolin] Ventolin HFA 108 (90 Base) MCG/ACT Ventolin HFA 108 (90 Base) MCG/ACT 09/28/2020 12:00:00 AM EDT 1.0 {puff_as_needed} active Leo tolin HFA 108 (90 Base) MCG/ACT eCW1 ([facility]) 7 ACTUAT umeclidinium 0.0625 MG/ACTUAT D ry Powder Inhaler [Incruse] Incruse Ellipta 62.5 MCG/INH Incruse Ellipta 62.5 MCG/INH 09/28/2020 12:00:00 AM EDT 1.0 {puff} active Incruse Ellipta 62.5 MCG/INH eCW1 ([facility]) 7 ACTUAT umeclidinium 0.0625 MG/ACTUAT D ry Powder Inhaler [Incruse] Incruse Ellipta 62.5 MCG/INH Incruse Ellipta 62.5 MCG/INH 09/28/2020 12:00:00 AM EDT 1.0 {puff} active Incruse Ellipta 62.5 MCG/INH eCW1 ([facility]) 200 ACTUAT Albuterol 0.09 MG/ACTUAT Mete red Dose Inhaler [Ventolin] Ventolin HFA 108 (90 Base) MCG/ACT Ventolin HFA 108 (90 Base) MCG/ACT 09/28/2020 12:00:00 AM EDT 1.0 {puff_as_needed} active Leo tolin HFA 108 (90 Base) MCG/ACT eCW1 ([facility]) 200 ACTUAT Albuterol 0.09 MG/ACTUAT Mete red Dose Inhaler [Ventolin] Ventolin HFA 108 (90 Base) MCG/ACT Ventolin HFA 108 (90 Base) MCG/ACT 09/28/2020 12:00:00 AM EDT 1.0 {puff_as_needed} active Leo tolin HFA 108 (90 Base) MCG/ACT eCW1 ([facility]) Losartan Potassium 50 MG Oral Tablet Losartan Potassium 50 M G 09/28/2020 12:00:00 AM EDT 1.0 {tablet} active Lo sartan Potassium 50 MG eCW1 ([facility]) Losartan Potassium 50 MG Oral Tablet Losartan Potassium 50 M G 09/28/2020 12:00:00 AM EDT 1.0 {tablet} active Lo sartan Potassium 50 MG eCW1 ([facility]) 200 ACTUAT Albuterol 0.09 MG/ACTUAT Mete red Dose Inhaler [Ventolin] Ventolin HFA 108 (90 Base) MCG/ACT Ventolin HFA 108 (90 Base) MCG/ACT 09/28/2020 12:00:00 AM EDT 1.0 {puff_as_needed} active eCW1 ([facility]) 200 ACTUAT Albuterol 0.09 MG/ACTUAT Mete red Dose Inhaler [Ventolin] Ventolin HFA 108 (90 Base) MCG/ACT Ventolin HFA 108 (90 Base) MCG/ACT 09/28/2020 12:00:00 AM EDT 1.0 {puff_as_needed} active Leo tolin HFA 108 (90 Base) MCG/ACT eCW1 ([facility]) 200 ACTUAT Albuterol 0.09 MG/ACTUAT Mete red Dose Inhaler [Ventolin] Ventolin HFA 108 (90 Base) MCG/ACT Ventolin HFA 108 (90 Base) MCG/ACT 09/28/2020 12:00:00 AM EDT 1.0 {puff_as_needed} active Leo tolin HFA 108 (90 Base) MCG/ACT eCW1 ([facility]) 5 mg 09/16/2020 12:00:00 AM EDT tablet [...] AM EDT active TAKE 1 TABLET DAILY [facility] 20 mg 06/06/2020 12:00:00 AM EDT [...] 05/30/2020 12:00:00 AM EDT ORAL completed MEDENT ([facility]) 100 mg 05/30/2020 12:00:00 AM EDT tablet [...] relationship to bruno Policy Bruno Plan Information [facility] Renewable Funding [id number] Self MEDICARE A [id number] Self [id number] N59 MEDICARE [id number] Ananya [id number] N59 MEDICARE [id number] Ananya [id number] A Special Funds (WC) Workers Compensation [id number] Self BS Of [facility] [email or web address] Maintenance Organization ([facility]) TNY2 [id number] Self [id number] BS Of [facility] [email or web address] Maintenance [facility] ([facility]) TNY2 [id number]77.0 Self [id number] BC/BS Of [employer] [id number] 2.16.840.1.561517.3.227.99.1 77.07430.0 Self [id number] [place] Commercial [id number] 2.16.840.1.830056.3.227.99.1 77.86433.0 Self [id number] BS Of [facility] Health Maintenance Organization ([facility]) TNY2 [id number] 2.16.840.1.457320.3.227.99.2809.35697.0 Self [id number] BS Of [facility] Health [facility] Organization ([facility]) TNY2 [id number] 2.16.840.1.055557.3.227.99.2809.77157.0 Self [id number] BS Of [facility] Health Maintenance Organization ([facility]) [id number] Self BS Of [facility] Health [facility] Organization ([facility]) TNY2 [id number] 2.16.840.1.231183.3.227.99.2809.75297.0 Self [id number] [facility] [id number] 2.16.840.1.182147.3.227.99.8646.720899.0 Self [id number] BS Of [facility] Health Maintenance Organization ([facility]) TNY2 [id number] 2.16.840.1.085316.3.227.99.2809.94855.0 Self [id number] BS Of [facility] Health [facility] Organization ([facility]) TNY2 [id number] 2.16.840.1.785561.3.227.99.2809.36702.0 Self [id number] [place] Medigap Part B [id number] 2.16.840.1.138600.3.227.99.991.56720.0 Self 1 [id number] Medicare [place] Medigap Part B [id number] 2.16840.1.024412.3.227.99.991.80038.[id number] [facility] [place] [id number] 2.16.840.1.554734.3.227.99.991.40808.0 Self [id number] Medicare [place] Medigap Part B [id number] 2.16.840.1.078772.3.227.99.991.24370.0 Self [id number] [place] Medigap Part B [id number] 2.16.840.1.151865.3.227.99.991.68951.0 Self [id number] [place] Medigap Part B [id number] 2.16.840.1.759793.3.227.99.991.62220.0 Self 1 [id number] [place] Med[place] [id number] 2.16840.1.287731.3.227.99.62.017644.0 Self V [id number] [place] Med[place]ap [place] [id number] 2.16.840.1.371125.3.227.99.62.300340.0 Self V [id number] Medicare - NGS Medicare Primary [id number] 2.16.840.1.221764.3.227.99.177.40157.0 Self [id number] Medicare [place] Medicare Primary [id number] 2.16840.1.644472.3.227.99.8646.628479.0 Self [id number] Medicare - NGS Medicare Primary [id number] 2.16.840.1.288546.3.227.99.177.02826.0 Self 1 [id number] Medicare [place] Medicare Primary [id number] Self MEDICARE Med [id number] Self [id number] N59 Blue Shield [place] Medigap Part B [id number] 2.16.840.1.224068.3.227.99.62.231767.0 Self Y [id number] Blue Shield [place] Medigap [place] [id number] 2.16.840.1.220258.3.227.99.62.445297.0 Self Y [id number] Blue Ppo Health Maintenance Organization (HMO) [id number] 23 2.16.840.1.431265.3.227.99.62.742208.0 Self T [id number] BCBS Ppo Commercial [id number] 2.16.840.1.861051.3.227.99.177.33419 .0 Self [id number] BCBS Ppo Commercial [id number] 2.16.840.1.913504.3.227.99.177.47609 .0 Self [id number] Excellus BCBS Health Maintenance Organization (O) [id number] 23 2.16.840.1.987833.3.227.99.8646.032980.0 Self [id number] EXCELLUS BCBS [id number] [facility] TNY [id number] [place] EXCELLUS [id number] Self [id number] EXCELLUS H [id number] Self [id number] ANSI-Commercial [id number] ANSI-Medicare Part B [id number] ANSI-Medicare Part B [id number] ANSI-Commercial [id number] ANSI-Medicare Part B [id number] ANSI-Commercial [id number] ANSI-Commercial [id number] ANSI-Medicare Part B [id number] Medicare Medicare Primary [id number] 2.16.840.1.066269.3.227. 99.62.659833.0 Self [id number] ANSI-Commercial [id number] ANSI-Medicare Part B [id number] ANSI-Commercial [id number] ANSI-Medicare Part B [id number] ANSI-Commercial [id number] ANSI-Medicare Part B [id number] ANSI-Medicare Part B [id number] ANS-Commercial [id number] Medicare Natl Gov't [facility] Part B [id number] 2..1.139481.3.227.99.1767.11623.0 Self [id number] BC/Excellus Commercial [id number] 2..1.694015.3.227.99. 1767.20751.0 Self [id number] BS [place] 28 [id number] 2..1.294852.3.227.99.991.68143.0 Self T [id number] [place] Medigap Part B [id number] 2..1.352416.3.227.99.2809.02544.0 Self [id number] BS [employer] [id number] 2..1.683527.3.227.99.991.92525.0 Self T [id number] Medicare Upstate/[facility] Medicare Primary [id number] 2..1.585593.3.227.99.8646.596886.0 Self [id number] Excellus [facility] Health Maintenance Organization (HMO) [id number] 23 2.0.1.158252.3.227.99.8646.359728.0 Self [id number] BS [employer] [id number] 2..1.613120.3.227.99.991.56917.0 Self T [id number] [place] Medigap Part B [id number] 2.0.1.867696.3.227.99.2809.26535.0 Self [id number] BCBS [place] PPO 302/307 [id number] SP [id number] Medicare [place] Medigap Part B [id number] 2.0.1.113709.3.227.99.2809.09364.0 Self [id number] Medicare Natl Gov't [facility] Part B [id number] 2.0.1.371109.3.227.99.1767.72772.0 Self [id number] BCBS/Excellus Commercial [id number] 2.0.1.653633.3.227.99. 1767.56398.0 Self [id number] BS [facility] [id number] 2..1.123658.3.227.99.991.59238.0 Self T [id number] BS [place] [employer] [id number] 2..1.272428.3.227.99.991.41453.0 Self T [id number] [place] Medigap Part B [id number] 2.1.837771.3.227.99.2809.20776.0 Self [id number] [place] Medigap Part B [id number] .1.743265.3.227.99.2809.64680.0 Self [id number] EXCELLUS BS B [id number] S [place] [id number] MEDICARE C [id number] S [id number] A Medicare Natl Gov't [facility] Part B [id number] 2..1.012706.3.227.99.1767.71589.0 Self [id number] BCBS/Excellus Commercial [id number] 2.0.1.935504.3.227.99. 1767.79710.0 Self [id number] Medicare Natl Gov't [facility] Part B [id number] 2.0.1.988270.3.227.99.1767.29359.0 Self [id number] BCBS/Excellus Commercial [id number] 2.0.1.801641.3.227.99. 1767.07027.0 Self [id number] [place] Medigap Part B [id number] 2.0.1.175479.3.227.99.2809.55895.0 Self [id number] Medicare Natl Gov't [facility] Part B [id number] 2.0.1.272697.3.227.99.1767.48494.0 Self [id number] BCBS/Excellus Commercial [id number] 2.0.1.493464.3.227.99. 1767.84270.0 Self [id number] [place] Medigap Part B [id number] 2.0.1.270775.3.227.99.2809.50975.0 Self [id number] Medicare Natl Gov't [facility] Part B [id number] Self BCBS/[employer] Commercial [id number] Self Medicare [place] Medicare Primary 2.0.1.808202.3. 227.99.991.957054.0 Self BS [place] [employer] 2..1.642151.3.227.99.991 .909380.0 Self [place] Medigap Part B [id number] Self BCBS [place] PPO 302/307 [id number] SP [id number] EXCELLUS BCBS P [id number] S VYS [id number] EXCELLUS BCBS P [id number] S YND [id number] BC/BS OF [place] P [id number] S VY [id number] SELF PAY UNAVAILABLE SP UNAVAILA BLE [id number] A MEDICARE [id number] SP [id number] N59 [id number] BCBS [place] PPO 302/307 [id number] SP [id number] BCBS [place] PPO 302/307 [id number] SP [id number] BCBS [place] PPO 302/307 [id number] SP [id number] MEDICARE [id number] SP [id number] N59 BLUE CROSS BLUE SHIELD -O/P [id number] 18 [id number] MEDICARE [id number] SP [id number] A MEDICARE C [id number] S [id number] EXCELLUS BCBS B [id number] S T[place] [id number] BCBS 2.16840.1.098725.3.441 [id number] Blue Cross/Bl ue Shield 2.0.1.059891.3.441 Medicare 2.0.1.049648.3.441 [id number] Medicare Part B 2.0.1.865624.3.441 BCBS 2.0.1.286861.3.441 [id number] Blue Cross/Bl ue Shield 2.0.1.128383.3.441 ANSI-Medicare Part B [id number] ANSI-Commercial [id number] ANSI-Medicare Part B [id number] ANSI-Commercial [id number] MEDICARE PI PI [facility] PI PI Medicare Medicare Primary [id number] Self [id number] ANSI-Commercial [id number] ANSI-Medicare Part B [id number] ANSI-Medicare Part B [id number] ANSI-Commercial [id number] ANSI-Commercial [id number] ANSI-Medicare Part B [id number] ANSI-Medicare Part B [id number] ANSI-Commercial [id number] ANSI-Commercial [id number] ANSI-Medicare Part B [id number] ANSI-Commercial [id number] ANSI-Medicare Part B [id number] ANSI-Commercial [id number] ANSI-Medicare Part B [id number] Medicare Natl Gov't Servi Medigap Part B [id number] Self [id number] [employer] [id number] Self [id number] ANSI-Commercial [id number] ANSI-Medicare Part B [id number] Problems, Conditions, and Diagnoses Code Display Name Description Problem Type Effective Dates Data Source(s) K06165 Personal history of nicotine dependence Personal history of nicotine dependence Diagnosis 07/14/2020 08:00:00 AM EDT [facility] H2511 Age-related nuclear cataract, right eye Age-related nuclear cataract, right eye Diagnosis 07/14/2020 08:00:00 AM [facility] Z1152 ENCOUNTER FOR SCREENING FOR COVID-19 ENCOUNTER F OR SCREENING FOR COVID-19 Diagnosis [facility] Ill-defined and unknown cause of mortali ty Ill-defined and unknown cause of mortality Diagnosis 06/20/2020 08:23:00 AM [facility] Z538 Procedure and treatment not carried out for other reasons Procedure and treatment not carried out for other reasons Diagnosis 06/09/2020 08:45:00 AM [facility] Z99466 Nicotine dependence, other tobacco produ ct, uncomplicated Nicotine dependence, other tobacco product, uncomplicated Diagnosis 06/09 08:45:00 AM [facility] H2512 Age-related nuclear cataract, left eye A ge-related nuclear cataract, left eye Diagnosis 05/26/2020 06:39:00 AM [facility] M16366 Encounter for other preprocedural examin ation Encounter for other preprocedural examination Diagnosis 05/21/2020 08:21:00 AM [facility] N40.0 [id number] Enlarged prostate Problem 12/22/2020 12:00:0 0 AM EDT eCW1 ([facility]) R33.9 [id number] Urinary retention Problem 11/17/2020 12:00:0 0 AM EDT eCW1 ([facility]) K59.00 09704609 Constipation, unspecified constipation ty pe Problem 11/14/2020 12:00:00 AM EDT eCW1 ([facility]) J43.9 44709493 Pulmonary emphysema, unspecified emphysem a type Problem 09/28/2020 12:00:00 AM EDT eCW1 ([facility]) E78.00 [id number] Pure hypercholesterolemia Problem 03/30/2020 12:00:00 AM EST eCW1 ([facility]) E04.9 0804763 Enlarged thyroid Problem 02/23/2020 12:00:00 AM EST eCW1 ([facility]) F17.200 [id number] Smoker Problem 2020 12:00:00 AM ES T eCW1 ([facility]) Surgeries/Procedures Procedure Description Date Indications Data Source(s) Bronchospasm Evaluation 01/31/2021 12:00:00 AM EST [facility] ([facility], ) Plethysmography Determination Lung Volumes & Per Airway Resi st 01/31/2021 12:00:00 AM EST [facility] ([facility], ) DIFFUSING CAPACITY 01/31/2021 12:00:00 AM EST [facility] ([facility], ) Spirometry 01/30/2021 12:00:00 AM EST M [facility] ([facility], ) OFFICE OUTPATIENT VISIT 25 MINUTES 01/30/2021 12:00:00 AM EST [facility] ([facility], ) OFFICE OUTPATIENT VISIT 25 MINUTES 01/27/2021 12:00:00 AM EST [facility] ([facility], [facility]) OFFICE OUTPATIENT VISIT 25 MINUTES 01/07/2021 12:00:00 AM EDT MEDENT ([facility], [facility]) Imm: Flublok Quadrivalent 18 years & older 0.5mL IM Influenz a 12/22/2020 12:00:00 AM EDT eCW1 ([facility]) Voiding Trial 12/08/2020 12:00:00 AM EDT eCW1 ([facility]) BLDR IRRIGATION SMPL LAVAGE&/INSTLJ 12/08/2020 12:00:0 0 AM EDT eCW1 ([facility]) EKG 12-LEAD - CMAXX REPORT <td>EKG 12-LEAD - CMAXX REPORT</td><td></td><td>11/22/2020 12:41 PM EDT</td><td></td><td></td> 11/22/2020 12:41:17 PM T [facility] EKG 12-LEAD <td>EKG 12-LEAD</td><td>Rout ine</td><td>11/22/2020 12:41 PM EDT</td><td> Coronary artery disease involving [place] coronary artery of [place] heart without angina pectoris</td><td></td> 11/22/2020 12:41:17 PM EDT Coronary artery disease involving [place] coronary artery of [place] heart without angina pectoris [facility] Coronary artery disease involving [place] coronary artery of [place] heart without angina pectoris OFFICE OUTPATIENT VISIT 15 MINUTES 10/24/2020 12:00:00 AM EDT MEDENT ([facility], [facility]) OFFICE OUTPATIENT VISIT 15 MINUTES 10/20/2020 12:00:00 AM EDT MEDENT ([facility]) Med: Derm 1% Lidocaine with Epinephrine Injection Intr adermally to marked areas 08/24/2020 12:00:00 AM EDT eC ([facility]) STRESS TEST, PHARMACOLOGICAL WITH NUC ME D MYOCARDIAL PERFUSION SPECT (REST/STRESS) <td>STRESS TEST, PHARMACOLOGICAL WITH NU C MED MYOCARDIAL PERFUSION SPECT (REST/STRESS)</td><td>Routine</td><td>07/12/2020 2:02 PM EDT</td><td> Coronary artery disease involving [place] coronary artery of [place] heart without angina pectoris History of coronary artery bypass graft Mixed hyperlipidemia Essential hypertension Myocardial infarction of inferior wall Abdominal aortic aneurysm (AAA) without rupture</td><td> </td> 07/12/2020 02:02:34 PM EDT Abdominal aortic aneurysm (AAA) without ruptureMyocardial infarction of inferior wallEssential hypertensionMixed hyperlipidemiaHistory of coronary artery bypass graftCoronary artery disease involving [place] coronary artery of [place] heart without angina pectoris [facility] Abdominal aortic aneurysm (AAA) without rupture Myocardial infarction of inferior wall Essential hypertension Mixed hyperlipidemia History of coronary artery bypass graft Coronary artery disease involving [place] coronary artery of [place] heart without angina pectoris Staple Removal 06/16/2020 12:00:00 AM EDT eCW ([facility]) Suture Removal 06/10/2020 12:00:00 AM EDT eCW1 ([facility]) Med: Derm Lidocaine with Epinephrine Inj ection 1% with 2 ml sodium bicarbonate Intradermally to marked areas 06/02/2020 12:00:00 AM EDT eCW1 ([facility]) OFFICE OUTPATIENT VISIT 15 MINUTES 05/30/2020 12:00:00 AM EDT MEDENT ([facility], [facility]) Results ID Date Data Source [id number] 01/30/2021 08:44:00 AM EST MEDENT ([facility], ) Name Value Range Interpretation Code Description Data Saida rce(s) Supporting Document(s) PDFReport Laboratory test result MEDENT ([facility], ) FVC-Pred 4.37 L MEDENT ([facility], ) FVC-%Pred-Pre 87 L MEDENT ([facility]) FVC-Pre 3.81 L MEDENT ([facility]) Fev1-Pre 3.12 L MEDENT ([facility]) Fev1-Pred 3.13 L MEDENT ([facility]) FVC-LLN 3.38 L MEDENT ([facility]) Fev1-LLN 2.29 L MEDENT ([facility]) Fev1-%Pred-Pre 99 L MEDENT ([facility]) Fev6-Pred 4.09 L MEDENT ([facility]) Fev6-%Pred-Pre 92 L MEDENT ([facility]) Fev6-Pre 3.80 L MEDENT ([facility], ) Fev6-LLN 3.13 L MEDENT ([facility]) Kfc5fme-Hqbh 72 % MEDENT ([facility]) Pcp8yhg-%Pred-Pre 114 % MEDENT ([facility]) Mks8elu-Fok 82 % MEDENT ([facility]) Rft0hjr-OZI 62 % MEDENT ([facility]) Nox2bam-Svc 100 % MEDENT ([facility], ) Iaa9zqw-Ojzd 94 % MEDENT ([facility], ) Vit8wpt-%Pred-Pre 106 % MEDENT ([facility]) FEFMax-Pred 7.69 L/E/sec MEDENT ([facility]) FEFMax-Pre 9.19 L/E/sec MEDENT ([facility]) FEFMax-LLN 5.23 L/E/sec MEDENT ([facility]) FEFMax-%Pred-Pre 119 L/E/sec MEDENT ([facility]) [id number]-Vtob 2.16 L/E/sec MEDENT ([facility]) Qtz1464-Jdg 3.02 L/E/sec MEDENT ([facility]) Rap0283-%Pred-Pre 139 L/E/sec MEDENT ([facility]) Bbc9567-TDB 0.47 L/E/sec MEDENT ([facility]) Ecs3wev6-Xfgb 76 % MEDENT ([facility]) ExpTime-Pre 7.49 sec MEDENT ([facility]) Chk8dgn9-Xnm 82 % MEDENT ([facility]) Upl2tql1-%Pred-Pre 107 % MEDENT ([facility]) Gcy9xma9-ATW 67 % MEDENT ([facility]) ID Date Data Source CBC with Differential 01/09/2021 12:00:00 AM EST eCW1 ([facility]) Name Value Range Interpretation Code Description Data Saida rce(s) Supporting Document(s) 3.56 4.30-6.10 RED BLOOD COUNT eCW1 ([facility]) 10.0 4.0-10.0 WHITE BLOOD COUNT eCW1 ([facility]) 90.2 80.0-96.0 MEAN CORPUSCULAR VOLUME e CW1 ([facility]) 9.9 13.5-17.5 HEMOGLOBIN eCW1 ([facility]) 32.1 42.0-52.0 HEMATOCRIT eCW1 ([facility]) 17.7 11.5-14.5 RED CELL DISTRIBUTION WID TH eCW1 ([facility]) 30.8 32.0-36.5 MEAN CORPUSCULAR HGB CONC eCW1 ([facility]) 27.8 27.0-33.0 MEAN CORPUSCULAR HEMOGLOB IN eCW1 ([facility]) 83.8 36.0-66.0 NEUTROPHILS % W1 ([facility]) 239 150-450 PLATELET COUNT, AUTOMATED eCW1 ([facility]) 9.1 24.0-44.0 LYMPH % eCW1 ([facility]) 0.4 0.0-3.0 EOS % eCW1 ([facility]) 5.9 2.0-8.0 MONO % eCW1 ([facility]) 0.2 0.0-1.0 BASO % eCW1 ([facility]) 0.0 0.0-0.5 EOS # eCW1 ([facility]) 0.6 0.0-0.8 MONO # eCW1 ([facility]) 0.9 1.5-5.0 LYMPH # eCW1 ([facility]) 8.4 1.5-8.5 NEUTROPHILS # eCW1 ([facility]) 0.0 0.0-0.2 BASO # eCW1 ([facility]) ID Date Data Source VITB12 & FOL 01/09/2021 12:00:00 AM EST eCW1 ([facility]) Name Value Range Interpretation Code Description Data Saida rce(s) Supporting Document(s) 348 VITAMIN B12 LEVEL eCW1 ([facility]) 5.5 FOLATE eCW1 ([facility]) ID Date Data Source FREE T4 & TSH PANEL 01/09/2021 12:00:00 AM EST eCW1 ([facility]) Name Value Range Interpretation Code Description Data Saida rce(s) Supporting Document(s) 0.535 0.358-3.740 THYROID STIMULATING HORM ONE eCW1 ([facility]) 1.03 0.76-1.46 FREE T4 eCW1 ([facility]) ID Date Data Source FERRITIN 01/09/2021 12:00:00 AM EST eCW1 ([facility]) Name Value Range Interpretation Code Description Data Saida rce(s) Supporting Document(s) 33 26-388 FERRITIN eCW1 ([facility]) ID Date Data Source Comprehensive Metabolic Profile (CMP) 01/09/2021 12:00:00 AM EST eCW1 ([facility]) Name Value Range Interpretation Code Description Data Saida rce(s) Supporting Document(s) 20 7-18 BLOOD UREA NITROGEN eCW1 ([facility]) 86 70-100 GLUCOSE, FASTING eCW1 ([facility]) 0.72 0.70-1.30 CREATININE FOR GFR eCW1 ([facility]) 142 136-145 SODIUM LEVEL eCW1 ([facility]) > 60.0 >42 GLOMERULAR FILTRATION RATE eCW 1 ([facility]) 4.7 3.5-5.1 POTASSIUM SERUM eCW1 ([facility]) 109 98-107 CHLORIDE LEVEL eCW1 ([facility]) 9.3 8.8-10.2 CALCIUM LEVEL eCW1 ([facility]) 30 21-32 CARBON DIOXIDE LEVEL eCW1 ([facility]) 18 7-37 AST/SGOT eCW1 ([facility]) 79 45-117 ALKALINE PHOSPHATASE eCW1 ([facility]) 0.3 0.2-1.0 BILIRUBIN,TOTAL eCW1 ([facility]) 19 12-78 ALT/SGPT eCW1 ([facility]) 3.3 3.2-5.2 ALBUMIN eCW1 ([facility]) 6.9 6.4-8.2 TOTAL PROTEIN eCW1 ([facility]) 0.9 ALBUMIN/GLOBULIN RATIO eCW1 ([facility]) ID Date Data Source NT-PRO BNP 01/09/2021 12:00:00 AM EST eCW1 ([facility]) Name Value Range Interpretation Code Description Data Saida rce(s) Supporting Document(s) 388 <450 NT-PRO BNP eCW1 ([facility]) ID Date Data Source [id number] 01/07/2021 12:00:00 AM EDT [facility] Name Value Range Interpretation Code Description Data Saida rce(s) Supporting Document(s) SARS-CoV2 Rapid Antigen Negative [facility] This lab was reported by Debby Pierce. ID Date Data Source CBC - Complete Blood Count 12/08/2020 12:00:00 AM EDT eCW1 ( [facility]) Name Value Range Interpretation Code Description Data Saida rce(s) Supporting Document(s) 9.4 13.5-17.5 HEMOGLOBIN eCW1 ([facility]) 3.33 4.30-6.10 RED BLOOD COUNT eCW1 ([facility]) 7.0 4.0-10.0 WHITE BLOOD COUNT eCW1 ([facility]) 88.9 80.0-96.0 MEAN CORPUSCULAR VOLUME e CW1 ([facility]) 29.6 42.0-52.0 HEMATOCRIT eCW1 ([facility]) 31.8 32.0-36.5 MEAN CORPUSCULAR HGB CONC eCW1 ([facility]) 28.2 27.0-33.0 MEAN CORPUSCULAR HEMOGLOB IN eCW1 ([facility]) 18.4 11.5-14.5 RED CELL DISTRIBUTION WID TH eCW1 ([facility]) 199 150-450 PLATELET COUNT, AUTOMATED eCW1 ([facility]) ID Date Data Source [id number] 11/22/2020 03:34:09 PM EDT [facility] Name Value Range Interpretation Code Description Data Saida rce(s) Supporting Document(s) [facility] NKQUJm0pSzBAZvOos4ZbWtBpVZSqJX8jmln2R3P7bMBoK1RfpPYwb4kmV9GbF4PhASHyXFWPLE3YrHCh jb2 [file] e+XnAGaVO+arsalan/gk84TSgZu9N4oa6TtdAX1USq1kyFm6xdHwmu6VADcUau7FZmu+leKlm68MN5NSV91w eczvwfLLAvgP7eG1enIN0OsiA25gA2GJiZoBn2q5ECQN/+jilu1QO4V2U4M3adywNfx1h3dD6O+Y9F0S 2nq82NxaFyr5M903mfedM8W4eqklpXTX3AtkUIfj9n Dt7n8iCIqr2rWd6LOvCeCUR0Jcwctx3DCsrmzE3N821yEzFQWa8sgLZq1oOi3lOy5uTj9TjkSCuP1EQz zZu0ZdmsriJbUObqCd+GWwp9nOwyedIBLR6pfcK8+GQnSqith93VAx1C3VT16EQ+Oac9pZ2+1ml+2tnF VU5JsgpztjU275uJLNhskLnm+v29puQbqWA3ZysUJV GqYNo7/IQ3+LZmYTQrWH77fSBuB0sfrVdl3UscRiGOg2wCeL/iIMltblDd/Rcu5GNtVicGi1HXXZpzia SPtBmK4O0ZExxvdwAjzcwHbMioDpZuZst2SsSyanIK+UNxL4eEY8vewt9dTZZ8DQqp3Wh4n1yvW9nedr CtOlf4gwSPEeruyMB55RsUx5gwja0TaYkbcd6D2FjK 5Xng1M7p65z+K7Vhi/n2Coq0Iik8LnQkLme5m0sEiBATyOiWbOlx8QbSBj/r3O6xg9jvjxYWmir4RQ0+ ErWWLeJei9NwnOM8mkseC6x/Z1Bi4dQLe0m9D2R0Euowi6ksQFqSMEfsv68vSqN986fZd/ePMXb/7izS 4+Bp5IuBbLeEoVE52j3jeyPBmIvCzAuwVIE1hUM13P soQ7oqP01l5+1DP16Zw8LFfOK2cdNf8f3dwl9mpR7yc4cSD4ykrsRtYkTli75bUUa+ygzrt1yUmglZce 6H166uRZP1y0qS+69A9keXw58oCrv1tADdirIefJyy4D2vXt4ndqVQSrAt1j9+7n1i7I5nerCnohGZv0 XksaZhq962LpsIu0BKoP/UB2cEe5hTt9kuLfD2hiPo ptPlrRsDa+client services coordinator+client services coordinator+client services coordinator+client services coordinator+aVdoGe4cnvdvTmfwQjnly0jle1ynifv24Zt+7Da+9PpU8qwsS/168z [file] 6TJrify06C0P73UZpJ3l6W1ly10x+VmE3W9gdc46YI h/RQ7xZyxKp/f5xBXQh37oTctiE3s59Ru418+b9ed2WaxQ+2L4d40pszP6gmgOkXwaF0knKesd4v/G6/ Vvs6fQcvH6CQsoZ71x6XbT7DWj8Fq6+Y61G7AEdycpvhx840+T0E94P6RRtdvkeyb/5dx/5dx/yuY37X Mb/clB89fH465brd15tIw+vwuw6/6/C7vtG/wO86/K 6X2cr0nog3e9L/Ar/r8LsOv+vXTlF7HW8G2Wzxnczkwi1+1+T5ID4Z8OunzszI7IK+1+F3N/zuht/d8L sb+xn2o+uN+7Bfge2SgWDPvTjvVEt9mGyFpjzTLhacLkm3pIKJN4gB980obRIjUisNZvkUj8MS+qVdfr aWH3RZ82br4yz0nlBze1fZ+0EkffIuv/tGysrvZg+9 y+/ujEP3nN4VbYiBFG+5u+9R3z4GR0m92Q9IqLXb3zgdYHLj8CeJBs/npwcr0uR5izLvfBn79jaarcHy 8Grne8PPn/mHGhpYLkJOJxBefFKmWsuUelb2SGlnTdLszbtQHmckY4pwVYx/+0MfHIl8vCCkGYm35bZS 42M46l0ui4e/1RD20zeLa59jim71x95o83uc7cza28 1Pqn/ZE+5frk5O037Dv/0M29S/bEP/YrouNK6JfD8i5V+G/cII8vu4DUC/a+y5Go2kqA/ZmN/dmN/dmN /dmN/p6Mno38yc24gf88zj38xt67oj79fx38rk+8i30z6u7Y/dmN/ct1YDeMLdYZvlrVtYa+2l8y8b+3 l5mmkpaTmoQY+3sD5t03bbpdh5yuVjP+uSDx0rfW3c S6dLLxw0821h514Ix1sgk2or/+7G/i5o0XRny+s31G91A6H2I6vkAafmhTFqKoD2rd1m8Vf0c+5r3nuC DWys46S740hh0kIuM8jDHZL0id/x9BwodhtP6a/b2M+i895AO6G7jB42jQRACPyEtYdng9wDXIU9FCGY 4OGHMiIZUZr76R13cbYVvs/X24K9hBmGyLnM8u+B82 qB/Julio C/gwF98zO/qrT64xO72nE80uW39wR96pK05tH27fU42eO17bW66uC36rV70jMOtmG01ELoRjNRg 96LXiBENdPIpwIqmBM48TnPKHCX7UuWJXeDEUqRDTiLPDaNwXoJCo97rBD32WB81MW+xkC+xkC+xkC+x Leslie+xkC+xkC+pxksgtM0Y5K9J2A5T0D0L9U1N+N0cA6 YJurAQZizu3sUePvElqGZLoHSlaYrm1AhloqQwJNiH4TyfsdMmYSrS6TabpcLzBZ8tFJ8mHU4nWDdQ3L Susy/Q2A/Q2A/Q2A/O8gnXxHSrJgqiuMli0Q65lT2mktYZ5DVkKWTD3Ihiwoe1BTiz4HAfp3DcrALKPd1 [file] 3ZERrr9ui8650we55g22WifL/bx6160hvkW/vj8v7X 0++WW+uP+amjepk9K8+/W36wp9/9InnH6+h3k6x83aKky1om/BGXHo4TQ4no5Vxej9gdgXc+8tgbUZ07 jFcfasiX36v6L01vd9dt9v+9af/VN3KjyRIrxX1a12Mzt4s7mgdsdspFw03G7w0yfl7GsHCP4347OX11 6l8qgPl9dNO1sRqIjCgRUplzHy/HLsk0z8nlGYr1Pw OUBaaTVwhCI8SJ01x2UlryMspq67GP8oOMtbNda8RpVr9rFq0drdOMjx/11goURN59mA44KgEY0RE0lx 3fj2m4J/vn34tjie/24Ag2fteE79OuPJ+/+5oZu1iBcue2Tt1DETMjw221gyGu3Ydglq86Eb7A44v61C Z3T7/0384ZpHLSyi6b60f/UusaVqi6uAZv+vG7w7w+ utGIfj1xU8289e84K1477cj5zbfQvklGrMd44xK5S6JQ8x2Xicmix9Z3pQyxJaLJfPS25abCfnPsQdX7 7medpFYc+yH9E0POhZsmrjtUSh/48UtoO2/f9x4yb9d9clp2e1Tzp7u0un+0o4X+ccze8qZeu91AhcBC /t9YzqW7kL/1L32pf+lL3xt7+y6AOC3fH5e2XicL0I a6UxdX3+4nh1359j0kEMXUN9FCueXaZfMiwyjjpcuIVD0OJn8G+qu5gJ7lyZbY1GFq/xfp+6Ax8Z2w/c fO59PqwemduG72/W4fzHToAe10P4o9nH2jm785M1PDYOCkeudrzNKaYnq2QhakQpBZHucfrnn9UU6tG+ kdx81kDHCjLkx6hkX0cbO7w4V+NDY3rPm91DrgYBnr 31DEtx1o+8+Lvphx74w4YFY69UTaWERhbd3uSG/UtuTrgdX5WxhSa+EsP4Rtk32dGd4yPDm7mNqntc0i vJhqKGzo7plDJdPKPTqVtdouwW877fUQ+p3vRY5dk5mGkJEpcyVI3Uy7wIj49Ayl8fDh1ClFjZnQbDXe Load Out Supervisor/Psg67m0QaDa/9qyP5iiN0H4xbOW18jf9R6Nem6N [file] x4+/5PP7z9+Mf/9fZ//+mHf//hxz//jyZx5wu4/md//PFff/+flue tile press operator/zwL2//7X+/ff7Dn/70+9/9X3/z9u X3//UjV956++f/8doT9O5//fbHH9/qZyo/W490/KcXk448+/Wv/zP24a9k6FP9O3/42UfOrJQDy/UO/+ Q1cLeJQZ315x9Llew0p0qoAk/D6yDds3qb9qxk28q+ YMz6OIfFLsLML+9t+01/3aeL4cY0kog//Uh9c9gamj794f4+/d7Gf/n2jx++e28Sv/z6y624EX384Piz 5F+5Oj0cdyk89gvxtanoJc3u8NgfduLmbvj+auO/fX/of/v2p+///MNHd39/Z97hxPgyr/5LI1P3Y9Ci H97139x+efv9j3/+4U//z/f/9hduf/vz49vv//48w/ jp3W/wH3372g5i/uP9v//+jz/+5VQy08fJyi1z8KD/8N3P/uG73/QT31FBab3nYyZE5udtADcvt+Lcev +KA/xT16e4qaSbi/w8zybGx1hvrSqt0/+/P/z7f+40l9RT06Iyor1nD35kV++76113/+8//fNf/+Ts+0 H86vt/++zZ09iqH8//x+++//fff//jT66/XT2v3//4 0+plwoW3z//tP1/7+PCbP/7xDz//CXqb+uUff/c+9SBHidPABsicTxQ6N276C022/e/e/97K736y2sfz sc/69z+/t7V/4Q+6ydb2vanc+evv//sPb/G3a66005kP8nVQ60Z/fXXtfm+2mUu4e15OpjcDs5/3rvX3 1sbPt4zzi/w4blaqwSH2GixEc35+9tnXv/nq/dzX8r F3+jzS7p/6/fDvZa1hLsPxMVL5yhPxjRtxinVzYnbQIQmnZKMiTcj2XN6WpPJxJJMsW8X0EKMeua2nDL XlZPTfnMRnKgNfZAONGI2YrTVhOI3GLBz5ANRzDEFsWlKbSGSkzkN0PBHrZXHhKDQjB0MnzrTyyTYeBM AgUj4+CC1hx0NhMoRlEUTrEyi7YI6JiOExHX8JxKAa cB2qgkAlR566vbDzFMIsNmujw9SrOBywNZBKZM9ANHA9JCB0KUPmYz2+JS8le5YsOcGdHMEwBns2QJ2U bTQbg6RvCU1IF6TtWTYnUWNDOYM0t0HtQGGwdymhschaW6PdMKX7zR4oQRL3YDDhHSqoKWUrFIuqHMW3 VjIsBOvnDWMoVYVnYAPtHHOfAAd0zWJcBS8BH6VfIF ZjRLXPOOHryvBwQt4oTFfFTWiWN1gmWNOCOudEMWRvTKN5RvLuCB5BoHZfGRR3EQbCRWGTCZuUJVhtTl Pgz8T2PYOvJ5GaATVkujSiNXYIBXlcRytyUD7bdIddekyeX1YwiTNpPEUGHLFtJVJoQJWpFUVjL8Wty6 B6F4ByMPbIIPEECRsJVUpwBlQ1t97vbrGWBPGnXXGw ID4+IR4fc2UvGt8SFDZdUW5dqda3DV6OmGPnGB4JENwkrpZxL2fmdrXeJdQgUBOKMC3jD6YlhY85PHO+ LuMeJU5xmbj1djPqSbOxXHCyCHWmBUBrMZpoRFAuVJXqJHDgLLC6FEL1WUZpJsSeASDfPfA5OXVhUGKj AJTxrgWWJMDcMKQ7WpMyIpAqCWKyIIAtHTepGQFaCF JtZlm9ZEXlOQTqBH2sGbNpYNQmODDsSVDoEoU9DfXvTvRLCMKjUJEdKPFiZwPbTLFqZXSuOToyTXLmEQ LaSLg8JAXsZRHzNC5pAbDnCKGpZKGsYTFhMJRxCRRxlwHVJRWxBFYxVHI9OTCdGIJuVWQyFFdtEZGzUT XhSUM8SJDmBQKwOP4mJhPkGFVsKXV7AvMxLDKmMHVc qqNARMGvWDWjIKC5YBRwFSBtQNPdULkzMHDlIGEpRrJ7IFRoRHRlTJ0uZyIcKAEdZMP3RJIiSWSfLRGz qiECPCOqBQYpTQh5HiOrOLJcSGCxJEfgLVErOMQjYFeaHGJoXLJvRS4fZyPdVWWdPCDgVPXnWNImNORu myXLBMCuODAtCJW6TgQzCKBvXVLfAOvdPDDnDKRqHI I0GPUzHIEcAT0wHwMiLKJwCwMkBNmoMAAzFFYlmeYOJFKyATKlJZLiQLFyEYPaTNAkTZvbDJRwOAVxTr S7FWHwKASoZZ7pByChZCTuUCV3JMGdBCViRIQsvbBTYNNbTGHuRZFbOCB0ZWKtSXMdMDg7yfLmrVThEw b9He8HpMocVHN9Yo6VgqToAFLiGDWROn5Pw779UX UgMCBSCgo+UmugkUHogUfnBRDRKxU8OCoRAOZOL3K= ID Date Data Source [id number] 11/22/2020 02:29:16 PM EDT [facility] Name Value Range Interpretation Code Description Data Saida rce(s) Supporting Document(s) Progress Note [facility] VOMFBf9yWnFBEeKd97/KNFbvJLPze9FfXJdpCPj2GEkgEZWzH0NuDGO1tB6oBXJ4FOgLNqAfXnEkFQZa lbm [file] BjU6RuGUKqQeJfSswzNW1oWUJKLu5+[id number] ID Date Data Source CT ABD/PEL w/IV & Oral Contrast 11/14/2020 12:00:00 AM EDT e CW1 ([facility]) Name Value Range Interpretation Code Description Data Saida rce(s) Supporting Document(s) CT ABD/PEL w/IV & Oral Contras t eCW1 ([facility]) ID Date Data Source URINE CULTURE 11/14/2020 12:00:00 AM EDT eCW1 ([facility]) Name Value Range Interpretation Code Description Data Saida rce(s) Supporting Document(s) URINE CULTURE eCW1 ([facility]) ID Date Data Source CBC with Auto Differential 11/14/2020 12:00:00 AM EDT eCW1 ( [facility]) Name Value Range Interpretation Code Description Data Saida rce(s) Supporting Document(s) 9.9 4.0-10.0 WHITE BLOOD COUNT eCW1 ([facility]) 3.82 4.30-6.10 RED BLOOD COUNT eCW1 ([facility]) 10.9 13.5-17.5 HEMOGLOBIN eCW1 ([facility]) 88.2 80.0-96.0 MEAN CORPUSCULAR VOLUME e CW1 ([facility]) 33.7 42.0-52.0 HEMATOCRIT eCW1 ([facility]) 28.5 27.0-33.0 MEAN CORPUSCULAR HEMOGLOB IN eCW1 ([facility]) 17.0 11.5-14.5 RED CELL DISTRIBUTION WID TH eCW1 ([facility]) 214 150-450 PLATELET COUNT, AUTOMATED eCW1 ([facility]) 32.3 32.0-36.5 MEAN CORPUSCULAR HGB CONC eCW1 ([facility]) 75.7 36.0-66.0 NEUTROPHILS % eCW1 ([facility]) 0.5 0.0-3.0 EOS % eCW1 ([facility]) 12.8 24.0-44.0 LYMPH % eCW1 ([facility]) 10.2 2.0-8.0 MONO % eCW1 ([facility]) 0.6 0-3.0 IMMATURE GRANULOCYTE % eCW1 ([facility]) 7.5 1.5-8.5 NEUTROPHILS # eCW1 ([facility]) 0.0 0-0 NUCLEATED RED BLOOD CELL % eCW 1 ([facility]) 0.2 0.0-1.0 BASO % eCW1 ([facility]) 0.1 0.0-0.5 EOS # eCW1 ([facility]) 1.0 0.0-0.8 MONO # eCW1 ([facility]) 1.3 1.5-5.0 LYMPH # eCW1 ([facility]) 0.0 0.0-0.2 BASO # eCW1 ([facility]) ID Date Data Source PSA SCREENING 11/14/2020 12:00:00 AM EDT eCW1 ([facility]) Name Value Range Interpretation Code Description Data Saida rce(s) Supporting Document(s) 3.65 < 4.00 PSA SCREENING W1 ([facility]) ID Date Data Source LIPASE 11/14/2020 12:00:00 AM EDT eCW1 ([facility]) Name Value Range Interpretation Code Description Data Saida rce(s) Supporting Document(s) [id number] LIPASE eCW1 ([facility]) ID Date Data Source [id number] 09/14/2020 04:45:00 AM EDT [facility] Name Value Range Interpretation Code Description Data Saida rce(s) Supporting Document(s) Microorganism or agent identified in Unspecified speci men Negative for SARS-CoV-2 RNA. [facility] This lab was ordered by [facility] and reported by Department of Pathology and Laboratory Medicine at [facility]. ID Date Data Source [id number] 09/13/2020 12:00:00 AM EDT [facility] Name Value Range Interpretation Code Description Data Saida rce(s) Supporting Document(s) SARS coronavirus 2 RdRp gene Negative Rapid COVID (Point of Care) [facility] This lab was ordered by [facility] and reported by [facility]. ID Date Data Source [id number] 07/18/2020 09:08:00 [place] [address] OPERATIVE SUMMARYNAME: DANIE MARTINEZ DATE OF : 1940TTENDING PHYS: Flori Jensen Jr., MD DATE: 07/14/20 MR#: [id number] OF PROCEDURE: 07/14/2020REOPERATIVE DIAGNOSIS: Visually significant cataract, [...] unit was then introduced, and using a sugrmn-ryy-gnrnhtu technique, the nucleus and epi- nucleus were [...] Thelens centered well.COMPLICATIONS: None.BLOOD LOSS: Negligible. [address] [place] [address] OPERATIVE SUMMARYNAME: DANIE MARTINEZ DATE OF : 1940TTENDING PHYS: Flori Jensen Jr., MD DATE: 07/14/20 MR#: [id number]: Flori Jensen Jr., MD 07/18/20 08:49DT: TOM 07/18/20 09:08DS: Flori Jensen Jr., MD 08/11/20 11:15 2 Name Value Range Interpretation Code Description Data Saida rce(s) Supporting Document(s) ID Date Data Source [id number] 07/14/2020 02:10:00 PM EDT [facility] Name Value Range Interpretation Code Description Data Saida rce(s) Supporting Document(s) SARS-CoV-2 (COVID-19) RNA [Presence] in Respiratory specimen by AISHA with probe detection Not Detected [facility] This lab was ordered by [facility] and reported by [facility]. ID Date Data Source [id number] 07/09/2020 08:00:00 AM EDT [facility] Name Value Range Interpretation Code Description Data Saida rce(s) Supporting Document(s) SARS coronavirus 2 RNA Not Detected [facility] This lab was ordered by [facility] and reported by [facility]. ID Date Data Source [id number] 07/10/2020 01:27:00 PM EDT [facility] Name Value Range Interpretation Code Description Data Saida rce(s) Supporting Document(s) SARS-CoV-2, AISHA Not Detected Not Detected [facility] This nucleic acid amplification test was developed and its performancecharacteristics determined by [facility]. Nucleic acidamplification tests include RT-PCR and TMA. [...] assay. SARS-CoV-2, AISHA 2 DAY TAT Performed [facility] ID Date Data Source [id number] 06/02/2020 02:21:00 [place] [address] OPERATIVE SUMMARYNAME: DANIE MARTINEZ DATE OF : 1940TTENDING PHYS: Flori Jensen Jr., MD DATE: 05/26/20 MR#: [id number] OF PROCEDURE: 05/26/2020REOPERATIVE DIAGNOSIS: Visually significant cataract, [...] unit was then introduced, and using a uxioad-rqs-eqaatpa technique, the nucleus and epi- nucleus were [...] Thelens centered well.COMPLICATIONS: None.BLOOD LOSS: Negligible. [address] [place] [address] OPERATIVE SUMMARYNAME: DANIE MARTINEZ DATE OF : 1940TTENDING PHYS: Flori Jensen Jr., MD DATE: 05/26/20 MR#: [id number]: Flori Jensen Jr., MD 06/02/20 13:26DT: TOM 06/02/20 14:21DS: Flori Jensen Jr., MD 06/09/20 10:01 2 Name Value Range Interpretation Code Description Data Saida rce(s) Supporting Document(s) ID Date Data Source [id number] 06/04/2020 08:51:00 AM EDT [facility] Name Value Range Interpretation Code Description Data [facility] rce(s) Supporting Document(s) SARS coronavirus 2 RNA Not Detected [facility] This lab was ordered by [facility]issy and reported by [facility]. ID Date Data Source [id number] 06/06/2020 06:45:00 AM EDT [facility] Name Value Range Interpretation Code Description Data [facility] rce(s) Supporting Document(s) SARS-CoV-2, AISHA Not Detected Not Detected [facility] This nucleic acid amplification test was developed and its performancecharacteristics determined by [facility]. Nucleic acidamplification tests include RT-PCR and TMA. [...] assay. SARS-CoV-2, AISHA 2 DAY TAT Performed [facility] ID Date Data Source [id number] 05/21/2020 08:24:00 AM EDT [facility] Name Value Range Interpretation Code Description Data Saida rce(s) Supporting Document(s) SARS coronavirus 2 RNA Not Detected [facility] This lab was ordered by [facility] lissy and reported by [facility]. ID Date Data Source [id number] 05/23/2020 07:05:00 AM EDT [facility] Name Value Range Interpretation Code Description Data Saida rce(s) Supporting Document(s) SARS-CoV-2, AISHA Not Detected Not Detected [facility] This nucleic acid amplification test was developed and its performancecharacteristics determined by [facility]. Nucleic acidamplification tests include RT-PCR and TMA. [...] in this assay. ID Date Data Source [id number] 05/20/2020 01:38:17 PM EDT [facility] Name Value Range Interpretation Code Description Data Saida rce(s) Supporting Document(s) Progress Note [facility] FXIXWr4gEkHCVyQm90/TQIgeJRVqr8PpPAidKTz0NIjsRQKjQ9NvKBH5tS6uVVR1AZfLPqHzIeGoTuQ1 lbm [file] YtC/n8Mx9SIF/BxkLU0QqVmfKxlrya6Tk0+Jean Carlos/Qsb02apx8wxeiJzXh0e/1c2l32j/TZ1VqiC0BdcA [file] IDEgMCBSDQovSURbPGZjYTYyMTZkNmEzMmYyMTJhMD F5JOFtZbEvWXCvY9ZcDzF7TsZoYgItLgP7CVCqYlGfUnLsNDO0NNLjEWUjWvPhGDY+XZ9zXHy+Pg0Kc3 LnvbY2ehAvSVl2GhDdFX2CCFUND5TMUc== ID Date Data Source [id number] 03/15/2020 12:00:00 AM EST [facility] Joel Tellez MD Patient Name: EVELYN HELTON Date of : 1940te 6 Date of Exam: JANAE Gupta [id number]#: Fax: [phone] EXAM: CTA - ABDOMEN & [...] Other findings as described above.Accredited by the [employer] in [place].OSMANI Patton/Kim chaparro for referring JUAN HELTON to our office. Electronically Signed - CRISTAL LEAVITT DO 03/15/20 16:24 Name Value Range Interpretation Code Description Data Saida rce(s) Supporting Document(s) ID Date Data Source [facility] Chest without contrast 02/05/2020 12:00:00 AM EST eC W1 ([facility]) Name Value Range Interpretation Code Description Data Saida rce(s) Supporting Document(s) [facility] CT Chest without contrast eCW1 ([facility]) ID Date Data Source [id number] 01/15/2020 01:35:00 PM EST [facility] Name Value Range Interpretation Code Description Data Saida rce(s) Supporting Document(s) SARS coronavirus 2 RNA [facility] This lab was ordered by [facility] and reported by [facility]. Procedure Social History Code Duration Value Status Description Data Source(s ) 01/30/2021 12:00:00 AM EST Current Cigar Smoker 1 Kirk y completed Current Cigar Smoker 1 Daily MEDENT ([facility], ) Smoking 01/09/2021 12:00:00 AM EST Former Smoker completed Former Smoker eCW1 ([facility]) Smoking 12/22/2020 12:00:00 AM EDT Former Smoker completed Former Smoker eCW1 ([facility]) Smoking 12/08/2020 12:00:00 AM EDT Former Smoker completed Former Smoker eCW1 ([facility]) Smoking 12/08/2020 12:00:00 AM EDT Former Smoker completed Former Smoker eCW1 ([facility]) Smoking 12/08/2020 12:00:00 AM EDT Former Smoker completed Former Smoker eCW1 ([facility]) Alcohol intake 11/22/2020 12:00:00 AM EDT Current drinker of al cohol (finding) completed Current drinker of alcohol (finding) [facility] Tobacco use and exposure 11/22/2020 12:00:00 AM EDT Never used co mpleted Never used [facility] Smoking 11/22/2020 12:00:00 AM EDT Current some day smoker com pleted Current some day smoker [facility] Smoking 11/17/2020 12:00:00 AM EDT Former Smoker completed Former Smoker eCW1 ([facility]) Smoking 11/17/2020 12:00:00 AM EDT Former Smoker completed Former Smoker eCW1 ([facility]) Smoking 11/17/2020 12:00:00 AM EDT Former Smoker completed Former Smoker eCW1 ([facility]) Smoking 11/14/2020 12:00:00 AM EDT Former Smoker completed Former Smoker eCW1 ([facility]) Smoking 11/14/2020 12:00:00 AM EDT Former Smoker completed Former Smoker eCW1 ([facility]) Smoking 11/14/2020 12:00:00 AM EDT Former Smoker completed Former Smoker eCW1 ([facility]) Smoking 10/24/2020 12:00:00 AM EDT Former Smoker completed Former Smoker eCW1 ([facility]) Smoking 09/28/2020 12:00:00 AM EDT Former Smoker completed Former Smoker eCW1 ([facility]) Smoking 09/28/2020 12:00:00 AM EDT Former Smoker completed Former Smoker eCW1 ([facility]) Smoking 08/24/2020 12:00:00 AM EDT Former Smoker completed Former Smoker eCW1 ([facility]) Smoking 08/24/2020 12:00:00 AM EDT Former Smoker completed Former Smoker eCW1 ([facility]) Smoking 06/02/2020 12:00:00 AM EDT Former Smoker completed Former Smoker eCW1 ([facility]) Smoking 06/02/2020 12:00:00 AM EDT Former Smoker completed Former Smoker eCW1 ([facility]) Smoking 06/02/2020 12:00:00 AM EDT Former Smoker completed Former Smoker eCW1 ([facility]) Smoking 06/02/2020 12:00:00 AM EDT Former Smoker completed Former Smoker eCW1 ([facility]) Alcohol intake 05/20/2020 12:00:00 AM EDT Current drinker of al cohol (finding) completed Current drinker of alcohol (finding) [facility] Smoking 05/12/2020 12:00:00 AM EST Former Smoker completed Former Smoker eCW1 ([facility]) Smoking 05/12/2020 12:00:00 AM EST Former Smoker completed Former Smoker eCW1 ([facility]) Smoking 03/30/2020 12:00:00 AM EST Former Smoker completed Former Smoker eCW1 ([facility]) Smoking 02/23/2020 12:00:00 AM EST Former Smoker completed Former Smoker eCW1 ([facility]) Smoking 02/23/2020 12:00:00 AM EST Former Smoker completed Former Smoker eCW1 ([facility]) Smoking 2020 12:00:00 AM EST Former Smoker completed Former Smoker eCW1 ([facility]) Vital Signs ID Date Data Source UNK Name Value Range Interpretation Code Description Data Source(s) Systolic blood pressure 102 mm[Hg] 102 mm[Hg] Mami SWANSON ([facility]) Diastolic blood pressure 62 mm[Hg] 62 mm[Hg] [facility] ([facility]) Heart rate 53 /min 53 /min [facility] ([facility]) Oxygen saturation in Arterial blood by Pulse oximetry 97 % 97 % [facility] ([facility]) Body height 72 [in_i] 72 [in_i] [facility] ([facility]) 6'0" Body weight 204.00 [lb_av] 204.00 [[facility]_av] [facility] Body mass index (BMI) [Ratio] 27.7 kg/m2 27.7 k g/m2 [facility] ([facility]) [place] body weight 178 [lb_av] 178 [lb_av] [facility] Body weight 92.534 kg 92.534 kg [facility] ([facility]) Body surface area Derived from formula 2.15 m2 2.15 m2 [facility] ([facility]) Systolic blood pressure 148 mm[Hg] 148 mm[Hg] Mami SWANSON ([facility], [facility]) Diastolic blood pressure 74 mm[Hg] 74 mm[Hg] MEDENT ([facility], [facility]) Heart rate 105 /min 105 /min MEDENT ([facility], [facility]) Respiratory rate 16 /min 16 /min MEDENT ( [facility], [facility]) Oxygen saturation in Arterial blood by Pulse oximetry 96 % 96 % MEDENT ([facility], [facility]) Body temperature 98.0 [degF] 98.0 [degF] MEDENT ([facility], [facility]) Body weight 195.00 [lb_av] 195.00 [lb_av] MEDEN T ([facility], [facility]) Body height 70.5 [in_i] 70.5 [in_i] MEDENT ([facility], [facility]) 5'10.50" Body mass index (BMI) [Ratio] 27.6 kg/m2 27.6 k g/m2 MEDENT ([facility], [facility]) Body weight 204.4 [lb_av] 204.4 [lb_av] eCW1 ([facility]) Body height 70 [in_i] 70 [in_i] eCW1 ([facility]) Body mass index (BMI) [Ratio] 29.33 kg/m2 29.33 kg/m2 W1 ([facility]) Heart rate 67 /min 67 /min eCW1 ([facility]) Respiratory rate 18 /min 18 /min eCW1 ([facility]) Body temperature 97.8 [degF] 97.8 [degF] eCW1 ( [facility]) Systolic blood pressure 120 mm[Hg] 120 mm[Hg] e CW1 ([facility]) Diastolic blood pressure 70 mm[Hg] 70 mm[Hg] eCW1 ([facility]) Systolic blood pressure 130 mm[Hg] 130 mm[Hg] M EDENT ([facility], [facility]) Diastolic blood pressure 64 mm[Hg] 64 mm[Hg] MEDENT ([facility], [facility]) Heart rate 54 /min 54 /min MEDENT ([facility], [facility]) Respiratory rate 18 /min 18 /min MEDENT ( [facility], [facility]) Oxygen saturation in Arterial blood by Pulse oximetry 98 % 98 % MEDENT ([facility], [facility]) Body temperature 97.8 [degF] 97.8 [degF] MEDENT ([facility], [facility]) Body weight 195.00 [lb_av] 195.00 [lb_av] MEDEN T ([facility], [facility]) Body height 70.5 [in_i] 70.5 [in_i] MEDENT ([facility], [facility]) 5'10.50" Body mass index (BMI) [Ratio] 27.6 kg/m2 27.6 k g/m2 MEDENT ([facility], [facility]) Body weight 199.8 [lb_av] 199.8 [lb_av] eCW1 ([facility]) Body height 70 [in_i] 70 [in_i] eCW1 ([facility]) Body mass index (BMI) [Ratio] 28.67 kg/m2 28.67 kg/m2 eCW1 ([facility]) Heart rate 83 /min 83 /min eCW1 ([facility]) Respiratory rate 18 /min 18 /min eCW1 ([facility]) Body temperature 97.2 [degF] 97.2 [degF] eCW1 ( [facility]) Systolic blood pressure 140 mm[Hg] 140 mm[Hg] e CW1 ([facility]) Diastolic blood pressure 72 mm[Hg] 72 mm[Hg] eCW1 ([facility]) Body weight 196.8 [lb_av] 196.8 [lb_av] eCW1 ([facility]) Body height 70 [in_i] 70 [in_i] eCW1 ([facility]) Body mass index (BMI) [Ratio] 28.23 kg/m2 28.23 kg/m2 eCW1 ([facility]) Heart rate 76 /min 76 /min eCW1 ([facility]) Respiratory rate 18 /min 18 /min eCW1 ([facility]) Body temperature 97.0 [degF] 97.0 [degF] eCW1 ( [facility]) Systolic blood pressure 124 mm[Hg] 124 mm[Hg] e CW1 ([facility]) Diastolic blood pressure 66 mm[Hg] 66 mm[Hg] eCW1 ([facility]) Body weight 195 [lb_av] 195 [lb_av] eCW1 ([facility]) Body weight 88.45 kg 88.45 kg eCW1 ([facility]) Body height 70 [in_i] 70 [in_i] eCW1 ([facility]) Body mass index (BMI) [Ratio] 27.98 kg/m2 27.98 kg/m2 eCW1 ([facility]) Heart rate 85 /min 85 /min eCW1 ([facility]) Respiratory rate 18 /min 18 /min eCW1 ([facility]) Body temperature 96.2 [degF] 96.2 [degF] eCW1 ( [facility]) Systolic blood pressure 122 mm[Hg] 122 mm[Hg] e CW1 ([facility]) Diastolic blood pressure 64 mm[Hg] 64 mm[Hg] eCW1 ([facility]) Body weight 200 [lb_av] 200 [lb_av] eCW1 ([facility]) Body weight 90.72 kg 90.72 kg eCW1 ([facility]) Body height 70 [in_i] 70 [in_i] eCW1 ([facility]) Body mass index (BMI) [Ratio] 28.69 kg/m2 28.69 kg/m2 eCW1 ([facility]) Heart rate 65 /min 65 /min eCW1 ([facility]) Respiratory rate 18 /min 18 /min eCW1 ([facility]) Body temperature 96.7 [degF] 96.7 [degF] eCW1 ( [facility]) Systolic blood pressure 118 mm[Hg] 118 mm[Hg] e CW1 ([facility]) Diastolic blood pressure 62 mm[Hg] 62 mm[Hg] eCW1 ([facility]) Body weight 197 [lb_av] 197 [lb_av] eCW1 ([facility]) Body weight 89.36 kg 89.36 kg eCW1 ([facility]) Body height 70 [in_i] 70 [in_i] eCW1 ([facility]) Body mass index (BMI) [Ratio] 28.26 kg/m2 28.26 kg/m2 eCW1 ([facility]) Body weight 197.0 [lb_av] 197.0 [lb_av] eCW1 ([facility]) Body weight 89.36 kg 89.36 kg eCW1 ([facility]) Body height 70 [in_i] 70 [in_i] eCW1 ([facility]) Body mass index (BMI) [Ratio] 28.26 kg/m2 28.26 kg/m2 eCW1 ([facility]) Systolic blood pressure 124 mm[Hg] 124 mm[Hg] e CW1 ([facility]) Diastolic blood pressure 62 mm[Hg] 62 mm[Hg] eCW1 ([facility]) Systolic blood pressure 136 mm[Hg] 136 mm[Hg] M EDENT ([facility], [facility]) Diastolic blood pressure 65 mm[Hg] 65 mm[Hg] MEDENT ([facility], [facility]) Heart rate 59 /min 59 /min MEDENT ([facility], [facility]) Respiratory rate 14 /min 14 /min MEDENT ( [facility], [facility]) Oxygen saturation in Arterial blood by Pulse oximetry 98 % 98 % MEDENT ([facility], [facility]) Body temperature 97.5 [degF] 97.5 [degF] MEDENT ([facility], [facility]) Body weight 190.00 [lb_av] 190.00 [lb_av] MEDEN T ([facility], [facility]) Body height 70.5 [in_i] 70.5 [in_i] MEDENT ([facility], [facility]) '.50" Body mass index (BMI) [Ratio] 26.9 kg/m2 26.9 k g/m2 MEDENT ([facility], [facility]) Heart rate 67 /min 67 /min MEDENT ([facility], [facility]) Respiratory rate 13 /min 13 /min MEDENT ( [facility], [facility]) Oxygen saturation in Arterial blood by Pulse oximetry 97 % 97 % MEDENT ([facility], [facility]) Body temperature 96.7 [degF] 96.7 [degF] MEDENT ([facility], [facility]) Body weight 190.00 [lb_av] 190.00 [lb_av] MEDEN T ([facility], [facility]) Body height 70.5 [in_i] 70.5 [in_i] MEDENT ([facility], [facility]) 5'10.50" Body mass index (BMI) [Ratio] 26.9 kg/m2 26.9 k g/m2 MEDENT ([facility], [facility]) Systolic blood pressure 143 mm[Hg] 143 mm[Hg] M EDENT ([facility], [facility]) Diastolic blood pressure 73 mm[Hg] 73 mm[Hg] MEDENT ([facility], [facility]) Body weight 192.2 [lb_av] 192.2 [lb_av] eCW1 ([facility]) Body height 70 [in_i] 70 [in_i] eCW1 ([facility]) Body mass index (BMI) [Ratio] 27.57 kg/m2 27.57 kg/m2 eCW1 ([facility]) Heart rate 83 /min 83 /min eCW1 ([facility]) Respiratory rate 18 /min 18 /min eCW1 ([facility]) Body temperature 97.5 [degF] 97.5 [degF] eCW1 ( [facility]) Systolic blood pressure 120 mm[Hg] 120 mm[Hg] e CW1 ([facility]) Diastolic blood pressure 70 mm[Hg] 70 mm[Hg] eCW1 ([facility]) Body weight 200 [lb_av] 200 [lb_av] eCW1 ([facility]) Body height 70 [in_i] 70 [in_i] eCW1 ([facility]) Body mass index (BMI) [Ratio] 28.69 kg/m2 28.69 kg/m2 eCW1 ([facility]) Body weight 199.4 [lb_av] 199.4 [lb_av] eCW1 ([facility]) Body height 70 [in_i] 70 [in_i] eCW1 ([facility]) Body mass index (BMI) [Ratio] 28.61 kg/m2 28.61 kg/m2 eCW1 ([facility]) Systolic blood pressure 138 mm[Hg] 138 mm[Hg] e CW1 ([facility]) Diastolic blood pressure 70 mm[Hg] 70 mm[Hg] eCW1 ([facility]) Systolic blood pressure 136 mm[Hg] 136 mm[Hg] M EDENT ([facility], [facility]) Diastolic blood pressure 80 mm[Hg] 80 mm[Hg] MEDENT ([facility], [facility]) Heart rate 68 /min 68 /min MEDENT ([facility], [facility]) Respiratory rate 16 /min 16 /min MEDENT ( [facility], [facility]) Oxygen saturation in Arterial blood by Pulse oximetry 99 % 99 % MEDENT ([facility], [facility]) Body temperature 98.7 [degF] 98.7 [degF] MEDENT ([facility], [facility]) Body weight 190.00 [lb_av] 190.00 [lb_av] MEDEN T ([facility], [facility]) Body height 70.5 [in_i] 70.5 [in_i] MEDENT ([facility], [facility]) 5'10.50" Body mass index (BMI) [Ratio] 26.9 kg/m2 26.9 k g/m2 MEDENT ([facility], [facility]) Body weight 200 [lb_av] 200 [lb_av] eCW1 ([facility]) Body height 70 [in_i] 70 [in_i] eCW1 ([facility]) Body mass index (BMI) [Ratio] 28.69 kg/m2 28.69 kg/m2 eCW1 ([facility]) Heart rate 58 /min 58 /min eCW1 ([facility]) Respiratory rate 18 /min 18 /min eCW1 ([facility]) Body temperature 97.4 [degF] 97.4 [degF] eCW1 ( [facility]) Systolic blood pressure 110 mm[Hg] 110 mm[Hg] e CW1 ([facility]) Diastolic blood pressure 60 mm[Hg] 60 mm[Hg] eCW1 ([facility]) Body weight 195 [lb_av] 195 [lb_av] eCW1 ([facility]) Body height 70 [in_i] 70 [in_i] eCW1 ([facility]) Body mass index (BMI) [Ratio] 27.98 kg/m2 27.98 kg/m2 eCW1 ([facility]) Heart rate 75 /min 75 /min eCW1 ([facility]) Respiratory rate 18 /min 18 /min eCW1 ([facility]) Body temperature 97.5 [degF] 97.5 [degF] eCW1 ( [facility]) Systolic blood pressure 128 mm[Hg] 128 mm[Hg] e CW1 ([facility]) Diastolic blood pressure 70 mm[Hg] 70 mm[Hg] eCW1 ([facility]) Body weight 197.2 [lb_av] 197.2 [lb_av] eCW1 ([facility]) Body height 70 [in_i] 70 [in_i] eCW1 ([facility]) Body mass index (BMI) [Ratio] 28.29 kg/m2 28.29 kg/m2 eCW1 ([facility]) Heart rate 64 /min 64 /min eCW1 ([facility]) Respiratory rate 18 /min 18 /min eCW1 ([facility]) Body temperature 97.2 [degF] 97.2 [degF] eCW1 ( [facility]) Systolic blood pressure 120 mm[Hg] 120 mm[Hg] e CW1 ([facility]) Diastolic blood pressure 72 mm[Hg] 72 mm[Hg] eCW1 ([facility]) Body weight 197.2 [lb_av] 197.2 [lb_av] eCW1 ([facility]) Body height 70 [in_i] 70 [in_i] eCW1 ([facility]) Body mass index (BMI) [Ratio] 28.29 kg/m2 28.29 kg/m2 eCW1 ([facility]) Heart rate 64 /min 64 /min eCW1 ([facility]) Respiratory rate 18 /min 18 /min eCW1 ([facility]) Body temperature 97.2 [degF] 97.2 [degF] eCW1 ( [facility]) Systolic blood pressure 120 mm[Hg] 120 mm[Hg] e CW1 ([facility]) Diastolic blood pressure 72 mm[Hg] 72 mm[Hg] eCW1 ([facility]) ID Date Data Source [id number] 08/11/2020 11:17:49 AM EDT [facility] Name Value Range Interpretation Code Description Data Source(s) WEIGHT RECORDED 186.00 pounds 186.00 pounds [facility] Height 70 Inches 070 Inches [facility] ID Date Data Source [id number] 06/09/2020 10:03:05 AM EDT [facility] Name Value Range Interpretation Code Description Data Source(s) WEIGHT RECORDED 190.00 pounds 190.00 pounds [facility] Height 70 Inches 070 Inches [facility] ID Date Data Source [id number] 05/20/2020 01:38:17 PM EDT [facility] Name Value Range Interpretation Code Description Data Source(s) WEIGHT RECORDED 196 lb 196 lb [facility] Body height Measured 70 in 70 in [facility] Patient Treatment Plan of Care Planned Activity Planned Date Details Description Data Source (s) Trelegy Ellipta 100-62.5-25 MCG/INH 01/10/2021 12:00:00 AM EST eCW1 ([facility]) ferrous sulfate 325 MG Delayed Release Oral Tablet 01/10/2021 12 :00:00 AM EST eCW1 ([facility]) Docusate Sodium 100 MG Oral Capsule [Colace] 01/10/2021 12:00:00 AM EST eCW1 ([facility]) Tamsulosin hydrochloride 0.4 MG Oral Capsule [Flomax] 11/17/2020 12:00:00 AM EDT eCW1 ([facility]) Tamsulosin hydrochloride 0.4 MG Oral Capsule [Flomax] 11/17/2020 12:00:00 AM EDT eCW1 ([facility]) Tamsulosin hydrochloride 0.4 MG Oral Capsule [Flomax] 11/17/2020 12:00:00 AM EDT eCW1 ([facility]) Tamsulosin hydrochloride 0.4 MG Oral Capsule 11/17/2020 12:00:00 AM [facility] Losartan Potassium 50 MG Oral Tablet 10/31/2020 12:00:00 AM [facility] Albuterol Sulfate HFA 108 (90 Base) MCG/ ACT Inhalation Aerosol Solution (PROVENTIL HFA) 09/29/2020 12:00:00 AM EDT [facility] 7 ACTUAT umeclidinium 0.0625 MG/ACTUAT Dry Powder Inha ler [Incruse] 09/28/2020 12:00:00 AM EDT eCW1 ([facility]) Losartan Potassium 50 MG Oral Tablet 09/28/2020 12:00:00 AM EDT eCW1 ([facility]) 200 ACTUAT Albuterol 0.09 MG/ACTUAT Metered Dose Inhal er [Ventolin] 09/28/2020 12:00:00 AM EDT eCW1 ([facility]) 7 ACTUAT umeclidinium 0.0625 MG/ACTUAT Dry Powder Inha ler [Incruse] 09/28/2020 12:00:00 AM EDT eCW1 ([facility]) Losartan Potassium 50 MG Oral Tablet 09/28/2020 12:00:00 AM EDT eCW1 ([facility]) 200 ACTUAT Albuterol 0.09 MG/ACTUAT Metered Dose Inhal er [Ventolin] 09/28/2020 12:00:00 AM EDT eCW1 ([facility]) 7 ACTUAT umeclidinium 0.0625 MG/ACTUAT Dry Powder Inha ler [Incruse] 09/28/2020 12:00:00 AM EDT eCW1 ([facility]) clopidogrel 75 MG Oral Tablet 06/13/2020 12:00:00 AM EDT [facility]
--- NOTE | 2021-02-07 14:39 | HPEPDOC ---
[facility] Medical History & Physical Date of Admission Feb 07, 2021 Date of Service: Feb 07, 2021 Primary Care Physician: JACY BAILEY PA-C Attending Physician: SILVER HAMMER DO History and Physical CHIEF COMPLAINT: Slurring speech, inability to write, difficulty balancing HISTORY OF PRESENT ILLNESS: Patient is an 81-year-old male who presented to the hospital today after he was told by his that he was slurring his speech that started yesterday afternoon. Patient states that he tried to write a check for someone and was having difficulty with the hand being unable to write what he wanted to write. Patient states that after this, he sat down and later on in the night he was having difficulty getting up and his said that he had some facial droop. Patient was having some difficulty balancing however, he was able to walk to the bathroom and looked in the mirror and did not agree with his stating that he did not appear to have any facial droop. Patient came to the hospital today for a CT scan that was ordered by his leverman and figured he would check himself into the emergency department to see what was going on. Based on the patient's symptoms, patient was diagnosed with an acute CVA was about 16 to 18 hours old based on the timeline provided by the patient. Patient states he was feeling somewhat better. Hospitalist were called for admission. Patient had a negative CT scan in the emergency department. PAST MEDICAL HISTORY: 1. Coronary artery disease status post CT. 2. History of TIA. 3. Aortic and mitral valve disease. 4. Hypertension 5. Hyperlipidemia 6. Gout 7. Allergic rhinitis. 8. GERD 9. Uric acid kidney stones 10. Plantar fasciitis 11. Low testosterone 12. Obesity 13. Sleep apnea with CPAP 14. History of AAA status post repair PAST SURGICAL HISTORY: 1. Appendectomy. 2. Coronary artery disease stenting in 2005 with CABG in 2010. 3. Ascending aortic aneurysm repair. 4. Bilateral cataracts SOCIAL HISTORY: Patient is a former smoker and drinker but denies any recent alcohol use or smoking cigarettes. Patient denies illicit drug use. FAMILY HISTORY: Patient's father is and diagnosed diabetes. Patient's mother had a stroke ALLERGIES: Please see below. REVIEW OF SYSTEMS: General: Patient denies fevers HEENT: Patient denies headaches Cardiovascular: Patient denies chest pain Respiratory: Patient denies shortness of breath, cough GI: Patient denies abdominal pain, nausea, vomiting, diarrhea : Patient denies increased frequency or pain with urination Extremities: Patient denies swelling or pain in extremities Neurological: Patient denies numbness or tingling in legs Skin: Patient denies any new rashes or lesions. Hematologic: Patient denies any easy bruising. Lymphatic: Patient denies any lumps lumps or bumps in neck, axilla, or groin HOME MEDICATIONS: Please see below. PHYSICAL EXAMINATION: VITAL SIGNS: Temperature 96.7, pulse 73, respiratory rate 16, blood pressure 142/68, pulse oximetry 96% on room air. General: Alert and oriented male patient who was sitting in bed when I walked into the room. Patient not appear to be in any acute distress. HEENT: Normocephalic, atraumatic, moist mucous membranes. Neck: No lymphadenopathy or thyromegaly Cardiac: Regular rate and rhythm, no murmurs, normal S1, normal S2 Pulm: Clear to auscultation bilaterally. No wheezes, rhonchi, rales Abd: Nondistended, nontender to palpation, normal bowel sounds Ext: No edema bilateral lower extremities Neuro: Patient is 4+/5 strength in the right upper extremity compared to left which was 5/5. Patient has 5/5 strength in lower extremities bilaterally. Patient reported equal sensation to light touch in all dermatomes of the upper and lower extremities tested. Cranial nerves III through XII intact bilaterally. Patient had normal [id number] testing. Patient not have any pronator drift Skin: Skin of the head, neck, upper and lower extremities was examined did not show any evidence of rash or wounds. LABORATORY DATA: See below. IMAGING: CT of the chest performed without contrast on 02/07/2021 was reported to show chronic interstitial lung disease with peripheral and basilar distribution, suggestive of evolving IPF/UIP. Stable 4 mm left basilar pulmonary nodule. Per Fleischner Society criteria, no routine follow-up is recommended in a low risk patient. CT of the head performed without contrast on 02/07/2021 is reported to show no acute hemorrhage or edema. MICROBIOLOGY: Please see below. ASSESSMENT: 81-year-old male who presented to the hospital with increased weakness, slurred speech, and difficulty balancing who was admitted for TIA/acute CVA. . PLAN: 1. Acute CVA. Patient symptoms have lasted around 24 hours. They appear to be mildly improved however, patient does appear to have some slurring speech however, I do not know what the patient sounded like prior to this event. MRI and MRI of the brain have been ordered as well as carotid ultrasound and echocardiogram with bubble study. Patient is already on aspirin and Plavix. We will continue these at this time. Neurology has been consulted and I appreciate their recommendations. PT, OT, and speech therapy have been ordered. ARU screen has been placed. Continue telemetry for 48 hours 2. Hypertension. We will allow for permissive hypertension between 140 and 180. After 24 hours, the patient's blood pressure can be managed with his home antihypertensive medications. 3. Bronchitis. Patient is under the care of a leverman and we will continue with the patient's home inhalers. These need to be switched to medications that are on the hospital formulary. 4. Hyperlipidemia. Continue statin therapy. 5. Uric acid kidney stones and gout. We will continue patient's home medications. 6. Sleep apnea with CPAP. Patient can use home CPAP. DVT prophylaxis: Lovenox CODE STATUS: Full code Disposition: Patient be admitted to medical surgical floor. I do expect the patient to be discharged after greater than equal to 2 midnight stay. Vital Signs Vital Signs Date Time Temp Pulse Resp B/P (MAP) Pulse Ox O2 Delivery O2 Flow Rate FiO2 02/07/21 07:59 96.7 73 16 142/68 (92) 96 Room Air Laboratory Data Labs 24H Laboratory Tests 2 02/07/21 09:01: Nucleated Red Blood Cells % (auto) 0.0, Anion Gap 4L, Glomerular Filtration Rate > 60.0, Calcium Level 9.1, Coronavirus (COVID-19)(PCR) NEGATIVE, Influenza Type A (RT-PCR) NEGATIVE, Influenza Type B (RT-PCR) NEGATIVE, Respiratory Syncytial Virus (PCR) NEGATIVE CBC/BMP Laboratory Tests 02/07/21 09:01 Home Medications Scheduled Allopurinol (Allopurinol) 100 Mg Tablet, 100 MG PO DAILY Aspirin (Aspirin EC) 81 Mg Tablet.dr, 81 MG PO QHS Clopidogrel Bisulfate (Plavix) 75 Mg Tablet, 75 MG PO DAILY Cyanocobalamin (Vitamin B-12) (Vitamin B-12) 500 Mcg Tablet, 500 MCG PO DAILY Ergocalciferol (Vitamin D2) (Vitamin D2) 50,000 Units Cap, 50,000 UNITS PO QMONTH 1ST OF EACH MONTH Fluticasone Propionate (Fluticasone Propionate) 16 Gm [place].susp, 2 SPRAYS NARES DAILY Fluticasone/Umeclidin/Vilanter (Trelegy Ellipta 100-62.5-25) 1 Each Blst.w.dev, 1 PUFF INH DAILY Gabapentin (Gabapentin) 600 Mg Tablet, 1,200 MG PO BID Losartan Potassium (Losartan Potassium) 50 Mg Tablet, 50 MG PO DAILY Montelukast Sodium (Montelukast Sodium) 10 Mg Tablet, 10 MG PO QHS Pantoprazole Sodium (Pantoprazole Sodium) 40 Mg Tablet.dr, 40 MG PO BID Primidone (Primidone) 50 Mg Tablet, 50 MG PO QHS Rosuvastatin Calcium (Rosuvastatin Calcium) 40 Mg Tablet, 40 MG PO QHS Tamsulosin Hcl (Tamsulosin HCl) 0.4 Mg Capsule, 0.8 MG PO QHS Umeclidinium Oakes (Incruse Ellipta) 62.5 Mcg Blst.w.dev, 1 PUFF INH QHS Scheduled PRN Albuterol Sulfate (Albuterol Sulfate Hfa) 8.5 Gm Hfa.aer.ad, 2 PUFF INH Q4H PRN for SHORTNESS OF BREATH Allergies Coded Allergies: Dust (Verified Allergy, Unknown, 01/01/17) A-FIB/CHADSVASC A-FIB History Current/History of A-Fib/PAF?: No SILVER HAMMER DO Feb 07, 2021 14:39
--- NOTE | 2021-02-07 14:57 | REPVR ---
PROCEDURE INFORMATION: Exam: MR Head Without Contrast Exam date and time: 02/07/2021 2:39 PM Age: 81 years old Clinical indication: Weakness, extremity; Right; Additional info: Right sided weakness, R/O CVA TECHNIQUE: Imaging protocol: MR of the head without contrast. COMPARISON: CT Head without contrast 02/07/2021 8:10 AM FINDINGS: Brain: Examination reveals an approximately 12 x 12 mm focus of restricted diffusion in the left deep frontal periventricular white matter extending inferiorly into the posterior limb of the left internal capsule consistent with acute infarction. No acute hemorrhage, mass or midline shift is seen. There is mild patchy increased T2 signal intensity within the bilateral cerebral periventricular white matter, consistent with chronic microvascular ischemic changes. There are multiple small focal areas of chronic ischemia in bilateral frontal, parietal and periatrial white matter. Chronic ischemic changes are seen in the ebony. There is mild diffuse cerebral atrophy present, consistent with this patient's age. Cerebral ventricles: The ventricular system demonstrates mild diffuse compensatory enlargement. Bones/joints: Unremarkable. Paranasal sinuses: Mild mucosal thickening is seen in the paranasal sinuses. Mastoid air cells: Right-sided mastoid effusions/mastoiditis. Orbital cavity: Unremarkable. Soft tissues: Unremarkable. IMPRESSION: 1. Examination reveals an approximately 12 x 12 mm focus of restricted diffusion in the left deep frontal periventricular white matter extending inferiorly into the posterior limb of the left internal capsule consistent with acute infarction. No acute hemorrhage, mass or midline shift is seen. 2. Right-sided mastoid effusions/mastoiditis. Electronically signed by: Kiran Snyder On 02/07/2021 14:57:15 PM
--- NOTE | 2021-02-07 15:03 | REPVR ---
PROCEDURE INFORMATION: Exam: MRA Head Without Contrast; Arteriography Exam date and time: 02/07/2021 2:39 PM Age: 81 years old Clinical indication: Weakness; Additional info: Right sided weakness, R/O CVA TECHNIQUE: Imaging protocol: Magnetic resonance angiography head without contrast. Exam focused on the arteries. 3D rendering (Not supervised by radiologist): MIP and/or 3D reconstructed images were created by the technologist. COMPARISON: CT Head without contrast 02/07/2021 8:10 AM FINDINGS: ANTERIOR CIRCULATION: Right internal carotid artery: Intracranial segment is patent with no significant stenosis. No aneurysm. Right middle cerebral artery: There is moderate fusiform dilatation of the M1 segment of the right middle cerebral artery. Extensive focal calcification was noted on the prior CT scan in the proximal M1 segment. Right anterior cerebral artery: No occlusion or significant stenosis. No aneurysm. Left internal carotid artery: Intracranial segment is patent with no significant stenosis. No aneurysm. Left middle cerebral artery: No occlusion or significant stenosis. No aneurysm. Left anterior cerebral artery: No occlusion or significant stenosis. No aneurysm. 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 Left vertebral artery: No occlusion or significant stenosis. No aneurysm. Basilar artery: No occlusion or significant stenosis. No aneurysm. Right posterior cerebral artery: No occlusion or significant stenosis. No aneurysm. Left posterior cerebral artery: No occlusion or significant stenosis. No aneurysm. IMPRESSION: 1. 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 2. There is moderate fusiform dilatation of the M1 segment of the right middle cerebral artery. Extensive focal calcification was noted on the prior CT scan in the proximal M1 segment. Electronically signed by: Kiran Snyder On 02/07/2021 15:02:46 PM
[2021-02-07 17:00] VITALS: BP 119/58
[2021-02-07] MEDS: CYANOCOBALAMIN 500 MCG TAB PO SCH (17:37)
[2021-02-07] MEDS: allopurinoL 100 MG TAB PO SCH (17:37)
[2021-02-07] MEDS: CLOPIDOGREL 75 MG TAB PO SCH (17:38)
[2021-02-07] MEDS: ADVAIR HFA 230/21MCG INHALER INH SCH (20:16)
--- NOTE | 2021-02-07 20:36 | REPVR ---
PROCEDURE INFORMATION: Exam: US Duplex Bilateral Extracranial Arteries Exam date and time: 02/07/2021 8:04 PM Age: 81 years old Clinical indication: Weakness, extremity and weakness, facial; Right; Additional info: Right sided weakness, possible CVA TECHNIQUE: Imaging protocol: Real-time Duplex ultrasound scan of the bilateral carotid and vertebral arteries combining momin scale, color Doppler and spectral waveform analysis. Bilateral exam. COMPARISON: MRA BRAIN W/O CONTRAST 02/07/2021 2:01 PM FINDINGS: Right common carotid artery: Mild atherosclerotic changes in the distal common carotid artery. No occlusion or stenosis. Waveforms are normal. Right internal carotid artery: Mild atherosclerotic changes in the carotid bulb and proximal ICA. No occlusion or stenosis. Waveforms are normal. Right ICA/CCA ratio: Within normal limits. 1.14. Right external carotid artery: No stenosis in the origin. Right vertebral artery: Unremarkable. Antegrade flow. Left common carotid artery: Mild atherosclerotic changes in the distal common carotid artery. No occlusion or stenosis. Waveforms are normal. Left internal carotid artery: Mild atherosclerotic changes in the carotid bulb and proximal ICA. No occlusion or stenosis. Waveforms are normal. Left ICA/CCA ratio: Within normal limits. 1.09. Left external carotid artery: No stenosis in the origin. Left vertebral artery: Unremarkable. Antegrade flow. IMPRESSION: 1. Mild atherosclerotic changes in the carotid bulbs and proximal ICAs resulting in well in the 50% stenosis consistent with a mild stenosis using SRU criteria. 2. Antegrade flow in the vertebral arteries. REFERENCES: SRU CRITERIA. The degree of internal carotid artery stenosis is based on criteria defined by the Society of Radiologists in Ultrasound (SRU). Normal is no stenosis. Mild is less than 50% stenosis. Moderate is 50-69% stenosis. Severe is greater than 69% stenosis to near occlusion. Near occlusion is a markedly narrowed lumen. Total occlusion is no detectable patent lumen. Electronically signed by: Jersey Murrieta On 02/07/2021 20:36:31 PM
[2021-02-07] MEDS ORDERED: TAMSULOSIN 0.4 MG CAP PO SCH (21:00)
[2021-02-07] MEDS ORDERED: MONTELUKAST 10 MG TAB PO SCH (21:00)
[2021-02-07] MEDS ORDERED: ROSUVASTATIN 10 MG TAB (CRESTOR) PO SCH (21:00)
[2021-02-07] MEDS ORDERED: PRIMIDONE 50 MG TAB PO SCH (21:00)
[2021-02-07] MEDS ORDERED: ASPIRIN 81MG ENTERIC TABLET PO SCH (21:00)
[2021-02-07 22:00] VITALS: BP 124/59
[2021-02-08 06:00] VITALS: BP 117/57
[2021-02-08] MEDS: ADVAIR HFA 230/21MCG INHALER INH SCH (07:51)
[2021-02-08] MEDS ORDERED: TIOTROPIUM INHALER/CAPSULE (SPIRIVA) INH SCH (08:00)
[2021-02-08 08:05] LABS: HEMATOCRIT 31.5 % (42.0-52.0); MEAN CORPUSCULAR HGB CONC 31.7 g/dl (32.0-36.5); MEAN CORPUSCULAR VOLUME 85.1 fl (80.0-96.0); PLATELET COUNT, AUTOMATED 249 10^3/uL (150-450); WHITE BLOOD COUNT 7.6 10^3/uL (4.0-10.0)
[2021-02-08 08:37] LABS: BLOOD UREA NITROGEN 16 MG/DL (7-18); CALCIUM LEVEL 8.6 MG/DL (8.8-10.2); CARBON DIOXIDE LEVEL 26 MEQ/L (21-32); CHLORIDE LEVEL 108 MEQ/L (98-107); CREATININE FOR GFR 0.77 MG/DL (0.70-1.30); GLOMERULAR FILTRATION RATE > 60.0 (>35); GLUCOSE, FASTING 84 MG/DL (70-100); MAGNESIUM LEVEL 2.3 MG/DL (1.8-2.4); POTASSIUM SERUM 4.2 MEQ/L (3.5-5.1); SODIUM LEVEL 141 MEQ/L (136-145)
--- NOTE | 2021-02-08 08:52 | CR ---
CONSULTATION DATE: 02/07/2021 REFERRING PHYSICIAN: Terell Lipscomb DO REASON FOR CONSULTATION: Slurred speech and difficulty writing with imbalance. HISTORY OF PRESENT ILLNESS: Bogdan Arreaga is an 81-year-old man who was noted to have slurring of speech by his yesterday. He felt slight off balance when he was trying to go upstairs. He went to sleep and woke up this morning and had to write some check and had trouble writing words and letters. He had drooling on the right side of his mouth when he was drinking coffee. He felt ___ using the stairs. He was scheduled to have a CT scan of the chest ordered by his medical information specialist and since he was near the hospital he decided to come to the emergency department to get checked out. CT scan of the head was unremarkable. MRI scan of the brain showed a small to medium sized acute ischemic stroke in the left landry radiata in deep cerebral white matter. Carotid ultrasound showed less than 50% bilateral carotid artery stenosis. 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 REVIEW OF SYSTEMS: All systems were reviewed and found noncontributory except as mentioned above. PAST MEDICAL/SURGICAL HISTORY: 1. Coronary artery disease status post stent and coronary artery bypass graft. 2. History of TIA. 3. Aortic and mitral valve disease. 4. Hypertension. 5. Dyslipidemia. 6. Gout. 7. Acid reflux. 8. Uric acid. 9. Kidney stones. 10. Plantar fasciitis. 11. Obesity. 12. Sleep apnea on CPAP. 13. Abdominal aortic aneurysm status post multiple repairs. 14. Cataract surgery. 15. Appendectomy. SOCIAL HISTORY: He is a former smoker. He denies alcohol or illicit drugs. He lives with his . FAMILY HISTORY: Father had diabetes. Mother had stroke. ALLERGIES: No known drug allergies. HOME MEDICATIONS: 1. Allopurinol 100 mg by mouth daily. 2. Aspirin 81 mg by mouth daily. 3. Plavix 75 mg by mouth daily. 4. Vitamin B12 500 mcg by mouth daily. 5. Flonase nasal spray two sprays in nostrils daily. 6. Gabapentin 1200 mg by mouth twice daily. 7. Losartan 50 mg by mouth daily. 8. Singulair 10 mg by mouth daily. 9. Protonix 40 mg by mouth twice a day. 10. Primidone 50 mg by mouth daily. 11. Crestor 40 mg by mouth daily. 12. Flomax 0.8 mg by mouth daily. 13. Incruse Ellipta 62.5 mcg inhalation daily. 14. Allopurinol 100 mg by mouth daily. PHYSICAL EXAMINATION: Vital signs: Temperature 96.7, pulse 73, respiratory rate 16, blood pressure 142/68, 96% saturation on room air. Heart: Regular rate and rhythm. Lungs: Clear to auscultation. Abdomen: Soft, nontender, nondistended. Extremities: No pedal edema. Musculoskeletal: No abnormalities. Skin: No rash. No signs of meningeal irritation. Patient is awake, alert and oriented to place, person, and time. Normal speech, comprehension and repetition. Extraocular muscles are intact. No facial weakness. Tongue and uvula are midline. 5/5 strength in all four extremities. He has mildly decreased rapid finger movements of the right hand. Deep tendon reflexes are 2+ throughout. Normal sensation throughout bilaterally. He has mild difficulty doing tandem walking. ASSESSMENT: 1. Small medium sized acute ischemic stroke in left landry radiata/deep cerebral white matter. 2. Hypertension. 3. Dyslipidemia. 4. Coronary artery disease. 5. Sleep apnea. PLAN: 1. Continue aspirin 81 mg by mouth daily and Plavix 75 mg by mouth daily. 2. Continue Crestor 40 mg by mouth daily. 3. Physical and occupational therapy. 4. Echocardiogram and continue telemetry monitoring. 5. Allow permissive hypertension with blood pressure below 180/100 during hospital stay with long-term blood pressure below 130/80. 6. Follow with our office in two weeks after hospital discharge.
[2021-02-08 09:00] VITALS: BP 133/67
[2021-02-08] MEDS ORDERED: FLUTICASONE PROP 0.05% NASAL SPRAY 16 GM (FLONASE) NARES SCH (09:00)
[2021-02-08] MEDS ORDERED: ENOXAPARIN 40MG/0.4ML SYRINGE (J1650 PER 10MG) SC SCH (09:00)
[2021-02-08] MEDS: LOSARTAN 50MG TABLET PO SCH ×2 (09:00→11:31)
[2021-02-08] MEDS: CYANOCOBALAMIN 500 MCG TAB PO SCH (11:31)
[2021-02-08] MEDS: GABAPENTIN 400MG CAP PO SCH (11:31)
[2021-02-08] MEDS: CLOPIDOGREL 75 MG TAB PO SCH (11:32)
[2021-02-08] MEDS: PANTOPRAZOLE 40MG TAB (PROTONIX) PO SCH (11:32)
[2021-02-08] MEDS: allopurinoL 100 MG TAB PO SCH (11:33)
--- NOTE | 2021-02-08 13:31 | ECGEPIP ---
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
--- NOTE | 2021-02-08 16:00 | DS.PDOC ---
Discharge Summary General Date of Admission Feb 07, 2021 at 10:27 Date of Discharge 02/08/2021 Primary Care Physician: JACY BAILEY PA-C Attending Physician: SILVER HAMMER DO Specialist/Consultants Involve: INDRA KHOURY MD Discharge Summary PROCEDURES PERFORMED DURING STAY: None. ADMITTING DIAGNOSES: 1. Acute CVA. 2. Hypertension 3. Bronchitis 4. Hyperlipidemia 5. Uric acid kidney stones and gout 6. Sleep apnea with CPAP DISCHARGE DIAGNOSES: 1. Acute CVA in the left deep frontal periventricular white matter extending inferiorly into the posterior limb of the left internal capsule 2. Hypertension 3. Bronchitis 4. Hyperlipidemia 5. Uric acid kidney stones and gout 6. Sleep apnea with CPAP COMPLICATIONS/CHIEF COMPLAINT: Cva (Cerebal Vascular Accident). HISTORY OF PRESENT ILLNESS: Patient is an 81-year-old male who presented to the hospital today after he was told by his that he was slurring his speech that started yesterday afternoon. Patient states that he tried to write a check for someone and was having difficulty with the hand being unable to write what he wanted to write. Patient states that after this, he sat down and later on in the night he was having difficulty getting up and his said that he had some facial droop. Patient was having some difficulty balancing however, he was able to walk to the bathroom and looked in the mirror and did not agree with his stating that he did not appear to have any facial droop. Patient came to the hospital today for a CT scan that was ordered by his director of content marketing and figured he would check himself into the emergency department to see what was going on. Based on the patient's symptoms, patient was diagnosed with an acute CVA was about 16 to 18 hours old based on the timeline provided by the patient. Patient states he was feeling somewhat better. Hospitalist were called for admission. Patient had a negative CT scan in the emergency department. HOSPITAL COURSE: Patient improved and was not having any focal neurological deficits on 02/08/2021. Patient was seen by physical, occupational, and speech therapy who all cleared the patient from their perspective. Patient was back at his baseline was able to walk unassisted and was not having any balance issues. Patient was seen by neurology who recommended continuing his home medication as the patient is already on aspirin, Plavix, and a statin. Because the patient did so well and did not require rehab, the decision was made to discharge the patient on 02/08/2021. Patient was discharged home. DISCHARGE MEDICATIONS: Please see below. ALLERGIES: Please see below. PHYSICAL EXAMINATION ON DISCHARGE: VITAL SIGNS: Please see below. General: Alert and oriented male patient who was sitting on the side of the bed when I walked in. Patient not appear to be in any acute distress. HEENT: Normocephalic, atraumatic, moist mucous membranes. Neck: No lymphadenopathy or thyromegaly Cardiac: Regular rate and rhythm, no murmurs, normal S1, normal S2 Pulm: Clear to auscultation bilaterally. No wheezes, rhonchi, rales Abd: Nondistended, nontender to palpation, normal bowel sounds Ext: No edema bilateral lower extremities Neuro: Cranial nerves III through XII intact bilaterally, [id number] testing within normal limits bilaterally, patient had equal strength in the upper and lower extremities bilaterally. Patient reported equal sensation to light touch in upper and lower extremities bilaterally. LABORATORY DATA: Please see below. IMAGING: CT of the chest performed without contrast on 02/07/2021 was reported to show chronic interstitial lung disease with peripheral and basilar distribution, suggestive of evolving IPF/UIP. Stable 4 mm left basilar pulmonary nodule. Per Fleischner Society criteria, no routine follow-up is recommended in a low risk patient. CT of the head performed without contrast on 02/07/2021 is reported to show no acute hemorrhage or edema. MRI of the brain performed without contrast was performed on 02/07/2021 reported to show examination reveals an approximately 12 x 12 mm focus of restricted diffusion in the left deep frontal periventricular white matter extending inferiorly into the posterior limb of the left internal capsule consistent with acute infarction. No acute hemorrhage, mass or midline shift is seen. Right- sided mastoid effusion/mastoiditis. 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 There is moderate fusiform dilatation of the M1 segment of the right middle cerebral artery. Extensive focal calcification was noted on prior CT scan in the proximal M1 segment Carotid ultrasound performed on 02/07/2021 is reported to show mild atherosclerotic change in the carotid bulbs and proximal ICAs resulting in the 50% stenosis consistent with mild stenosis using SRU criteria. Antegrade flow in the vertebral arteries PROGNOSIS: Fair ACTIVITY: As tolerated. DIET: Heart healthy diet DISCHARGE PLAN: Discharge home DISPOSITION: 01 Home, Self-Care. DISCHARGE INSTRUCTIONS: 1. Follow-up with your primary care provider within 5 to 7 days of discharge. 2. Follow-up with Dr. Khoury of neurology in 2 weeks 3. Return the emergency department symptoms worsen ITEMS TO FOLLOWUP ON ON OUTPATIENT: 1. Echocardiogram report. DISCHARGE CONDITION: Stable. TIME SPENT ON DISCHARGE: 35 minutes. Vital Signs/I&Os Vital Signs Date Time Temp Pulse Resp B/P (MAP) Pulse Ox O2 Delivery O2 Flow Rate FiO2 02/08/21 09:00 133/67 02/08/21 06:00 98.5 64 16 94 Room Air I&O- Last 24 Hours up to 6 AM 02/08/21 06:00 Intake Total 660 ml Output Total 100 ml Balance 560 ml Laboratory Data Labs 24H Laboratory Tests 2 02/08/21 07:11: Nucleated Red Blood Cells % (auto) 0.0, Anion Gap 7L, Glomerular Filtration Rate > 60.0, Calcium Level 8.6L, Magnesium Level 2.3 CBC/BMP Laboratory Tests 02/08/21 07:11 Discharge Medications Scheduled Allopurinol (Allopurinol) 100 Mg Tablet, 100 MG PO DAILY, (Reported) Aspirin (Aspirin EC) 81 Mg Tablet.dr, 81 MG PO QHS, (Reported) Clopidogrel Bisulfate (Plavix) 75 Mg Tablet, 75 MG PO DAILY, (Reported) Cyanocobalamin (Vitamin B-12) (Vitamin B-12) 500 Mcg Tablet, 500 MCG PO DAILY, (Reported) Ergocalciferol (Vitamin D2) (Vitamin D2) 50,000 Units Cap, 50,000 UNITS PO QMONTH, (Reported) 1ST OF EACH MONTH Fluticasone Propionate (Fluticasone Propionate) 16 Gm [place].susp, 2 SPRAYS NARES DAILY, (Reported) Fluticasone/Umeclidin/Vilanter (Trelegy Ellipta 100-62.5-25) 1 Each Blst.w.dev, 1 PUFF INH DAILY, (Reported) Gabapentin (Gabapentin) 600 Mg Tablet, 1,200 MG PO BID, (Reported) Losartan Potassium (Losartan Potassium) 50 Mg Tablet, 50 MG PO DAILY, (Reported) Montelukast Sodium (Montelukast Sodium) 10 Mg Tablet, 10 MG PO QHS, (Reported) Pantoprazole Sodium (Pantoprazole Sodium) 40 Mg Tablet.dr, 40 MG PO BID, (Reported) Primidone (Primidone) 50 Mg Tablet, 50 MG PO QHS, (Reported) Rosuvastatin Calcium (Rosuvastatin Calcium) 40 Mg Tablet, 40 MG PO QHS, (Reported) Tamsulosin Hcl (Tamsulosin HCl) 0.4 Mg Capsule, 0.8 MG PO QHS, (Reported) Umeclidinium Dougherty (Incruse Ellipta) 62.5 Mcg Blst.w.dev, 1 PUFF INH QHS, (Reported) Scheduled PRN Albuterol Sulfate (Albuterol Sulfate Hfa) 8.5 Gm Hfa.aer.ad, 2 PUFF INH Q4H PRN for SHORTNESS OF BREATH, (Reported) Allergies Coded Allergies: Dust (Verified Allergy, Unknown, 01/01/17) SILVER HAMMER DO Feb 08, 2021 16:00
--- NOTE | 2021-02-08 17:00 | ECHO ---
ECHOCARDIOGRAM DATE OF PROCEDURE: 02/07/2021 Age: Gender: Height: 70 inches Weight: 203 pounds REFERRING PHYSICIAN: Dr. Terell Lipscomb INDICATION: Acute stroke. 2D MEASUREMENTS: Aortic root 3.8 cm Proximal ascending aorta 3.3 cm Left atrium 4.0 cm Left ventricle diastole 1.15 cm Posterior wall 1.11 cm Left ventricle diastole 4.9 cm Mild aortic regurgitation. No aortic stenosis. Aortic valve velocity 185 cm/s LVOT velocity 110 cm/s No mitral regurgitation. Mitral E velocity 64.3 cm/s Mitral E velocity 97.3 cm/s Mitral deceleration time 292 msec Trace tricuspid regurgitation. Very mild pulmonic regurgitation. MITRAL ANNULAR TISSUE DOPPLER: E prime lateral 9.5 cm/s E prime septal 7.9 cm/s DESCRIPTION: 1. Rhythm was sinus. This was a moderately technically difficult echocardiogram. No pericardial effusion. Left ventricle appeared normal in size and systolic function. Normal LV wall thickness. Normal regional LV wall motion and wall thickening. Normal LV systolic function. LVEF 70% by visual estimate. Grade 1 LV diastolic dysfunction (impaired relaxation filling pattern). 2. Mild aortic valve sclerosis of a 3-cuspid aortic valve. No aortic stenosis. Mild aortic regurgitation. 3. Moderate mitral annular calcification. No mitral stenosis or regurgitation. 4. Mild dilatation of the aortic root at the level of the sinus of Valsalva. 5. Nondiagnostic suboptimal attempt at saline bubble study. 6. Otherwise grossly deangelo-appearing echocardiogram Doppler. Moderate technically difficult echocardiogram.
== END 2021-02-08 15:09 | disposition home or self-care (01) | DRG 66 ==
LOC: M ED 07:59 → M ED INP 10:27 → ENRESERV 16:50 → M MSPAV 17:00
PROVIDERS: ADMIT Family Medicine; ATTEND Family Medicine
DX: I63.9 Cerebral infarction, unspecified (principal); R91.8 Other nonspecific abnormal finding of lung field; R47.81 Slurred speech; R53.1 Weakness; I10 Essential (primary) hypertension; E78.5 Hyperlipidemia, unspecified; N20.0 Calculus of kidney; M10.9 Gout, unspecified; G47.33 Obstructive sleep apnea (adult) (pediatric); J40 Bronchitis, not specified as acute or chronic; I25.10 Atherosclerotic heart disease of native coronary artery without angina pectoris; I25.2 Old myocardial infarction; K21.9 Gastro-esophageal reflux disease without esophagitis; E66.9 Obesity, unspecified; Z90.49 Acquired absence of other specified parts of digestive tract; Z98.41 Cataract extraction status, right eye; Z98.42 Cataract extraction status, left eye; Z87.891 Personal history of nicotine dependence; Z79.82 Long term (current) use of aspirin; Z79.899 Other long term (current) drug therapy

== ENCOUNTER → 2021-02-07 | Outpatient (CLI) | payer MEDICARE, BC ==
[~2021-02-07] MED LIST changes: +ALBU8.5H INH; +ASPI81TA26 PO; +ERGO500029 PO; +FLUTISP NARES; +INCR1INH INH; +LOSA50TA88 PO; +MONT10TA10 PO; +PANT-23 PO; +PLAV1TAB2 PO; +ROSU40TA4 PO; +TAMS1CAP17 PO; +TREL1AER INH; +VITA-172 PO
--- NOTE | 2021-02-07 10:13 | REPVR ---
PROCEDURE INFORMATION: Exam: CT Chest Without Contrast; Diagnostic Exam date and time: 02/07/2021 7:49 AM Age: 81 years old Clinical indication: Condition or disease; Lung condition and disease; Pulmonary nodule, solitary; Additional info: Abn finding lung field TECHNIQUE: Imaging protocol: Diagnostic computed tomography of the chest without contrast. 3D rendering (Not supervised by radiologist): MIP and/or 3D reconstructed images were created by the technologist. Radiation optimization: All CT scans at this facility use at least one of these dose optimization techniques: automated exposure control; mA and/or kV adjustment per patient size (includes targeted exams where dose is matched to clinical indication); or iterative reconstruction. COMPARISON: CT Chest without contrast 02/05/2020 8:09 AM FINDINGS: Lungs: There is chronic interstitial lung disease with a peripheral and basilar distribution, suggestive of IV PF/UIP. There is a stable 4 mm left basilar pulmonary nodule. Pleural spaces: Unremarkable. No pneumothorax. No pleural effusion. Heart: Unremarkable. No cardiomegaly. No pericardial effusion. Aorta: There is a partially imaged abdominal aortic stent graft. Lymph nodes: Unremarkable. No enlarged lymph nodes. Kidneys and ureters: There are bilateral renal artery stents. Bones/joints: Unremarkable. No acute fracture. Soft tissues: Unremarkable. Renal: There is a partially imaged left parapelvic renal cyst. IMPRESSION: 1. Chronic interstitial lung disease with a peripheral and basilar distribution, suggestive of evolving IPF/UIP. 2. Stable 4 mm left basilar pulmonary nodule. Per Fleischner Society criteria, no routine follow-up is recommended in a low risk patient. Electronically signed by: Vinita Crowell On 02/07/2021 10:13:32 AM
== END ==
LOC: M RAD 07:38
PROVIDERS: ATTEND Internal Medicine Pulmonary Disease
DX: R91.8 Other nonspecific abnormal finding of lung field (principal)

== ENCOUNTER → 2021-03-30 | Outpatient (REF) | payer BC, MEDICARE ==
[~2021-03-30] MED LIST changes: +ALBU8.5H INH; +ASPI81TA26 PO; -CEFD1CAP8 PO; +CEFD300C41 PO; +ERGO500029 PO; +FLUTISP NARES; +INCR1INH INH; +LOSA50TA28 PO; +MONT10TA97 PO; +PANT-23 PO; +PLAV1TAB2 PO; +ROSU40TA4 PO; +TAMS1CAP17 PO; +TREL1AER INH; +VITA-172 PO
[2021-03-30 17:57] LABS: FERRITIN 49 NG/ML (26-388); IRON (FE) 100 UG/DL (65-175)
== END ==
LOC: M SFHCADAM 12:49
PROVIDERS: ATTEND Physician Assistant
DX: D64.9 Anemia, unspecified (principal)

== ENCOUNTER 2021-04-08 22:14 | Inpatient (IN) | payer BC, MEDICARE ==
[~2021-04-08] VITALS: Ht 177.8 cm; Wt 92.5 kg
[2021-04-08 23:11] LABS: BASO % 0.1 % (0.0-1.0); EOS % 0.1 % (0.0-3.0); HEMATOCRIT 37.6 % (42.0-52.0); HEMOGLOBIN 12.1 g/dl (13.5-17.5); LYMPH # 0.6 10^3/uL (1.5-5.0); LYMPH % 5.7 % (24.0-44.0); MEAN CORPUSCULAR HEMOGLOBIN 28.7 pg (27.0-33.0); MEAN CORPUSCULAR HGB CONC 32.2 g/dl (32.0-36.5); MEAN CORPUSCULAR VOLUME 89.1 fl (80.0-96.0); MONO # 0.8 10^3/uL (0.0-0.8); MONO % 7.5 % (2.0-8.0); NEUTROPHILS # 9.5 10^3/uL (1.5-8.5); NEUTROPHILS % 86.1 % (36.0-66.0); PLATELET COUNT, AUTOMATED 182 10^3/uL (150-450); RED BLOOD COUNT 4.22 10^6/uL (4.30-6.10); WHITE BLOOD COUNT 11.1 10^3/uL (4.0-10.0)
[2021-04-08] MEDS ORDERED: NORCO, ANEXSIA 5/325MG TABLET (HYDROcodone/ACETAMINOPHEN) PO ONE (23:35)
[2021-04-08 23:49] LABS: ALBUMIN 3.2 GM/DL (3.2-5.2); ALT/SGPT 17 U/L (12-78); BILIRUBIN,DIRECT 0.1 MG/DL (0.0-0.2); BILIRUBIN,TOTAL 0.3 MG/DL (0.2-1.0); BLOOD UREA NITROGEN 25 MG/DL (7-18); CALCIUM LEVEL 8.9 MG/DL (8.8-10.2); CARBON DIOXIDE LEVEL 25 MEQ/L (21-32); CHLORIDE LEVEL 110 MEQ/L (98-107); CREATININE FOR GFR 0.94 MG/DL (0.70-1.30); GLOMERULAR FILTRATION RATE > 60.0 (>35); GLUCOSE, FASTING 144 MG/DL (70-100); NT-PRO BNP 350 PG/ML (<450); SODIUM LEVEL 143 MEQ/L (136-145); TOTAL PROTEIN 6.7 GM/DL (6.4-8.2)
[2021-04-09] VITALS (21 sets, daily range): BP systolic 107–179; BP diastolic 55–75; O2SAT 86–95
[2021-04-09] MEDS ORDERED: IPRATROPIUM 0.5MG/ALBUTEROL 2.5MG INH SOL UD 3ML (DUONEB) NEB ONE ×2 (00:05)
[2021-04-09] MEDS ORDERED: ISOVUE-370 76% 100ML VIAL As Ordered ONE (00:13)
[2021-04-09 00:40] LABS: ABG BASE EXCESS -2.3 (-2.0-2.0); ABG HCO3 22.1 MEQ/L (22.0-26.0); ABG O2 SATURATION 97.6 % (95.0-99.0); ABG PARTIAL PRESSURE CO2 36.7 mmHg (35.0-45.0); ABG PARTIAL PRESSURE O2 103.5 mmHg (75.0-100.0); ABG STANDARD HCO3 22.6 MEQ/L (22.0-26.0); ABG TOTAL CO2 23.2 MEQ/L (23.0-31.0); ABG pH (ARTERIAL) 7.398 UNITS (7.350-7.450)
[2021-04-09] MEDS ORDERED: HOME MED LIST COMPLETE! XX SCH (01:35)
[2021-04-09] MEDS ORDERED: MAALOX 30 ML SUSP *UDC PO PRN (02:25)
[2021-04-09] MEDS ORDERED: MOM 30ML SUSPENSION UDC PO PRN (02:25)
[2021-04-09] MEDS ORDERED: ACETAMINOPHEN TAB 650MG DOSE (2X325MG) PO PRN (02:25)
[2021-04-09] MEDS: PIPERACILLIN/TAZOBACTAM SOD 4.5 GM in D5W MINI-BAG PLUS 50 ML IV SCH ×4 (04:34→20:17)
[2021-04-09] MEDS ORDERED: MORPHINE 4 MG/ML 1ML VIAL/SYRINGE (J2270) IV ONE (05:40)
[2021-04-09] MEDS ORDERED: IPRATROPIUM 0.5MG/ALBUTEROL 2.5MG INH SOL UD 3ML (DUONEB) NEB PRN (05:45)
[2021-04-09 06:12] LABS: BASO % 0.3 % (0.0-1.0); EOS % 0.1 % (0.0-3.0); HEMATOCRIT 35.1 % (42.0-52.0); HEMOGLOBIN 11.1 g/dl (13.5-17.5); LYMPH # 0.9 10^3/uL (1.5-5.0); LYMPH % 10.2 % (24.0-44.0); MEAN CORPUSCULAR HEMOGLOBIN 28.4 pg (27.0-33.0); MEAN CORPUSCULAR HGB CONC 31.6 g/dl (32.0-36.5); MEAN CORPUSCULAR VOLUME 89.8 fl (80.0-96.0); MONO # 1.1 10^3/uL (0.0-0.8); MONO % 11.8 % (2.0-8.0); NEUTROPHILS # 7.1 10^3/uL (1.5-8.5); PLATELET COUNT, AUTOMATED 170 10^3/uL (150-450); RED BLOOD COUNT 3.91 10^6/uL (4.30-6.10); WHITE BLOOD COUNT 9.3 10^3/uL (4.0-10.0)
[2021-04-09 06:27] LABS: ALBUMIN 3.1 GM/DL (3.2-5.2); ALT/SGPT 16 U/L (12-78); BILIRUBIN,TOTAL 0.4 MG/DL (0.2-1.0); BLOOD UREA NITROGEN 24 MG/DL (7-18); CALCIUM LEVEL 8.5 MG/DL (8.8-10.2); CARBON DIOXIDE LEVEL 27 MEQ/L (21-32); CHLORIDE LEVEL 110 MEQ/L (98-107); CREATININE FOR GFR 0.72 MG/DL (0.70-1.30); GLOMERULAR FILTRATION RATE > 60.0 (>35); GLUCOSE, FASTING 102 MG/DL (70-100); POTASSIUM SERUM 4.1 MEQ/L (3.5-5.1); SODIUM LEVEL 143 MEQ/L (136-145); TOTAL PROTEIN 6.5 GM/DL (6.4-8.2)
[2021-04-09] MEDS ORDERED: TRELEGY ELLIPTA INH SCH (09:00)
[2021-04-09] MEDS: LIDOCAINE 5% (LIDODERM) PATCH TD SCH (09:18)
[2021-04-09] MEDS: oxyCODONE 5MG TAB PO PRN ×2 (12:00→17:04)
[2021-04-09] MEDS ORDERED: LEVALBUTEROL 1.25 MG/0.5 ML CONCENTRATE NEB INH PRN (12:35)
[2021-04-09] MEDS ORDERED: amLODIPine 5 MG TAB PO ONE (12:40)
[2021-04-09 13:23] LABS: MAGNESIUM LEVEL 1.9 MG/DL (1.7-2.2)
[2021-04-09] MEDS: CYANOCOBALAMIN 500 MCG TAB PO SCH (13:37)
[2021-04-09] MEDS: allopurinoL 100 MG TAB PO SCH (13:38)
[2021-04-09] MEDS: methylPREDNISolone 125MG 2ML VIAL IV SCH ×2 (13:38→20:27)
[2021-04-09] MEDS: CLOPIDOGREL 75 MG TAB PO SCH (13:38)
[2021-04-09] MEDS: PANTOPRAZOLE 40MG TAB (PROTONIX) PO SCH ×2 (13:39→20:18)
[2021-04-09] MEDS: guaiFENesin ER 600 MG TAB PO SCH ×2 (13:39→20:18)
[2021-04-09] MEDS: FLUTICASONE PROP 0.05% NASAL SPRAY 16 GM (FLONASE) NARES SCH (15:04)
[2021-04-09 15:56] LABS: NT-PRO BNP 299 PG/ML (<450)
[2021-04-09] MEDS: LEVALBUTEROL 1.25 MG/0.5 ML CONCENTRATE NEB INH SCH ×3 (16:28→22:00)
[2021-04-09] MEDS ORDERED: metOLazone 2.5 MG TAB PO ONE (16:40)
[2021-04-09] MEDS ORDERED: FUROSEMIDE 40MG/4ML VIAL (J1940) IV ONE (16:40)
[2021-04-09 16:43] LABS: ABG BASE EXCESS 0.4 (-2.0-2.0); ABG HCO3 24.1 MEQ/L (22.0-26.0); ABG O2 SATURATION 93.8 % (95.0-99.0); ABG PARTIAL PRESSURE CO2 35.7 mmHg (35.0-45.0); ABG PARTIAL PRESSURE O2 66.6 mmHg (75.0-100.0); ABG STANDARD HCO3 24.8 MEQ/L (22.0-26.0); ABG TOTAL CO2 25.2 MEQ/L (23.0-31.0); ABG pH (ARTERIAL) 7.447 UNITS (7.350-7.450)
[2021-04-09] MEDS: MORPHINE 2 MG/ML 1ML VIAL (J2270) IV PRN (17:57)
[2021-04-09] MEDS: BUDESONIDE 0.5 MG/2 ML INHALATION SUSPENSION INH SCH (19:28)
[2021-04-09] MEDS: MONTELUKAST 10 MG TAB PO SCH (20:17)
[2021-04-09] MEDS: PRIMIDONE 50MG TAB PO SCH (20:17)
[2021-04-09] MEDS: ASPIRIN 81MG ENTERIC TABLET PO SCH (20:17)
[2021-04-09] MEDS: TAMSULOSIN 0.4 MG CAP PO SCH (20:18)
[2021-04-09] MEDS: ROSUVASTATIN 10 MG TAB (CRESTOR) PO SCH (20:18)
[2021-04-09] MEDS: amLODIPine 5 MG TAB PO SCH (20:19)
[2021-04-09] MEDS: **NOTE PATIENT COMMENT** MISC XX SCH (20:27)
[2021-04-09] MEDS: POLYVINYL ALCOHOL OPHTH SOLN 15 ML(LIQUITEARS) OU SCH (21:53)
[2021-04-09] MEDS: OLOPATADINE 0.1% OPHTH SOL 5ML(PATANOL) OU SCH (21:53)
[2021-04-09 23:16] LABS: BLOOD UREA NITROGEN 26 MG/DL (7-18); CALCIUM LEVEL 9.2 MG/DL (8.8-10.2); CARBON DIOXIDE LEVEL 28 MEQ/L (21-32); CHLORIDE LEVEL 101 MEQ/L (98-107); CREATININE FOR GFR 0.94 MG/DL (0.70-1.30); GLOMERULAR FILTRATION RATE > 60.0 (>35); GLUCOSE, FASTING 147 MG/DL (70-100); POTASSIUM SERUM 3.7 MEQ/L (3.5-5.1); SODIUM LEVEL 137 MEQ/L (136-145)
[2021-04-09 23:18] LABS: ABG BASE EXCESS 2.5 (-2.0-2.0); ABG HCO3 26.2 MEQ/L (22.0-26.0); ABG O2 SATURATION 92.3 % (95.0-99.0); ABG PARTIAL PRESSURE CO2 37.2 mmHg (35.0-45.0); ABG STANDARD HCO3 26.6 MEQ/L (22.0-26.0); ABG TOTAL CO2 27.3 MEQ/L (23.0-31.0); ABG pH (ARTERIAL) 7.465 UNITS (7.350-7.450)
[2021-04-10] VITALS (17 sets, daily range): BP systolic 114–126; BP diastolic 53–63; O2SAT 89–96
[2021-04-10] MEDS: methylPREDNISolone 125MG 2ML VIAL IV SCH ×4 (01:05→18:08)
[2021-04-10] MEDS: LEVALBUTEROL 1.25 MG/0.5 ML CONCENTRATE NEB INH SCH ×5 (01:19→19:46)
[2021-04-10] MEDS: PIPERACILLIN/TAZOBACTAM SOD 4.5 GM in D5W MINI-BAG PLUS 50 ML IV SCH ×4 (02:54→20:54)
[2021-04-10 06:18] LABS: BASO % 0.1 % (0.0-1.0); HEMATOCRIT 39.2 % (42.0-52.0); HEMOGLOBIN 12.6 g/dl (13.5-17.5); LYMPH # 0.6 10^3/uL (1.5-5.0); LYMPH % 7.4 % (24.0-44.0); MEAN CORPUSCULAR HEMOGLOBIN 28.6 pg (27.0-33.0); MEAN CORPUSCULAR HGB CONC 32.1 g/dl (32.0-36.5); MEAN CORPUSCULAR VOLUME 89.1 fl (80.0-96.0); MONO # 0.1 10^3/uL (0.0-0.8); MONO % 1.9 % (2.0-8.0); NEUTROPHILS # 6.7 10^3/uL (1.5-8.5); NEUTROPHILS % 90.2 % (36.0-66.0); PLATELET COUNT, AUTOMATED 212 10^3/uL (150-450); WHITE BLOOD COUNT 7.4 10^3/uL (4.0-10.0)
[2021-04-10 06:39] LABS: BLOOD UREA NITROGEN 31 MG/DL (7-18); CALCIUM LEVEL 9.2 MG/DL (8.8-10.2); CARBON DIOXIDE LEVEL 27 MEQ/L (21-32); CHLORIDE LEVEL 103 MEQ/L (98-107); CREATININE FOR GFR 1.05 MG/DL (0.70-1.30); GLOMERULAR FILTRATION RATE > 60.0 (>35); GLUCOSE, FASTING 139 MG/DL (70-100); POTASSIUM SERUM 3.7 MEQ/L (3.5-5.1); SODIUM LEVEL 140 MEQ/L (136-145)
[2021-04-10] MEDS: BUDESONIDE 0.5 MG/2 ML INHALATION SUSPENSION INH SCH ×2 (07:52→19:46)
[2021-04-10] MEDS ORDERED: metOLazone 2.5 MG TAB PO ONE ×2 (08:00→11:30)
[2021-04-10] MEDS ORDERED: FUROSEMIDE 40MG/4ML VIAL (J1940) IV ONE ×2 (08:30→12:00)
[2021-04-10] MEDS: FLUTICASONE PROP 0.05% NASAL SPRAY 16 GM (FLONASE) NARES SCH (09:00)
[2021-04-10] MEDS: LIDOCAINE 5% (LIDODERM) PATCH TD SCH ×2 (09:00→16:56)
[2021-04-10] MEDS: amLODIPine 5 MG TAB PO SCH ×2 (09:00→20:31)
[2021-04-10] MEDS: guaiFENesin ER 600 MG TAB PO SCH ×2 (09:08→20:48)
[2021-04-10] MEDS: allopurinoL 100 MG TAB PO SCH (09:08)
[2021-04-10] MEDS: PANTOPRAZOLE 40MG TAB (PROTONIX) PO SCH ×2 (09:08→20:49)
[2021-04-10] MEDS: CLOPIDOGREL 75 MG TAB PO SCH (09:09)
[2021-04-10] MEDS: CYANOCOBALAMIN 500 MCG TAB PO SCH (09:09)
[2021-04-10] MEDS: OLOPATADINE 0.1% OPHTH SOL 5ML(PATANOL) OU SCH ×2 (09:32→16:54)
[2021-04-10] MEDS: POLYVINYL ALCOHOL OPHTH SOLN 15 ML(LIQUITEARS) OU SCH ×4 (09:33→20:46)
[2021-04-10] MEDS: oxyCODONE 5MG TAB PO PRN ×2 (09:39→16:54)
[2021-04-10] MEDS ORDERED: VARIBAR NECTAR 40% w/v 240ML SUSP BTL As Ordered ONE (13:09)
[2021-04-10] MEDS ORDERED: VARIBAR PUDDING 40% w/v 230ML TUBE As Ordered ONE (13:09)
[2021-04-10] MEDS ORDERED: BARIUM SULFATE 700 MG TABLET (E-Z-DISK) As Ordered ONE (13:10)
[2021-04-10] MEDS ORDERED: E-Z-PAQUE 96% w/w SUSP 176GM BTL As Ordered ONE (13:10)
[2021-04-10] MEDS: TIOTROPIUM INHALER/CAPSULE (SPIRIVA) INH SCH (15:05)
[2021-04-10 16:27] LABS: ABG BASE EXCESS 3.5 (-2.0-2.0); ABG HCO3 27.1 MEQ/L (22.0-26.0); ABG O2 SATURATION 95.4 % (95.0-99.0); ABG PARTIAL PRESSURE CO2 37.7 mmHg (35.0-45.0); ABG PARTIAL PRESSURE O2 79.6 mmHg (75.0-100.0); ABG STANDARD HCO3 27.6 MEQ/L (22.0-26.0); ABG TOTAL CO2 28.3 MEQ/L (23.0-31.0); ABG pH (ARTERIAL) 7.475 UNITS (7.350-7.450)
[2021-04-10 19:31] LABS: MAGNESIUM LEVEL 2.1 MG/DL (1.7-2.2)
[2021-04-10] MEDS: ADVAIR HFA 115/21MCG INHALER INH SCH (19:45)
[2021-04-10] MEDS: MORPHINE 2 MG/ML 1ML VIAL (J2270) IV PRN (20:48)
[2021-04-10] MEDS: ROSUVASTATIN 10 MG TAB (CRESTOR) PO SCH (20:48)
[2021-04-10] MEDS: ASPIRIN 81MG ENTERIC TABLET PO SCH (20:49)
[2021-04-10] MEDS: MONTELUKAST 10 MG TAB PO SCH (20:49)
[2021-04-10] MEDS: **NOTE PATIENT COMMENT** MISC XX SCH (20:49)
[2021-04-10] MEDS: TAMSULOSIN 0.4 MG CAP PO SCH (20:49)
[2021-04-10] MEDS: PRIMIDONE 50MG TAB PO SCH (21:53)
[2021-04-10 23:46] LABS: CK-MB VALUE MASS 1.2 NG/ML (<3.6); MB/CK RELATIVE INDEX 1.67 (< OR =4)
[2021-04-11] VITALS (28 sets, daily range): BP systolic 111–153; BP diastolic 55–65; O2SAT 87–98
[2021-04-11] MEDS: methylPREDNISolone 125MG 2ML VIAL IV SCH ×2 (00:28→06:04)
[2021-04-11] MEDS: PIPERACILLIN/TAZOBACTAM SOD 4.5 GM in D5W MINI-BAG PLUS 50 ML IV SCH ×4 (02:00→20:00)
[2021-04-11] MEDS: LEVALBUTEROL 1.25 MG/0.5 ML CONCENTRATE NEB INH SCH ×6 (04:00→20:00)
[2021-04-11 05:48] LABS: ABG BASE EXCESS 7.3 (-2.0-2.0); ABG HCO3 32.2 MEQ/L (22.0-26.0); ABG O2 SATURATION 97.8 % (95.0-99.0); ABG PARTIAL PRESSURE CO2 46.7 mmHg (35.0-45.0); ABG PARTIAL PRESSURE O2 111.1 mmHg (75.0-100.0); ABG STANDARD HCO3 31.1 MEQ/L (22.0-26.0); ABG TOTAL CO2 33.6 MEQ/L (23.0-31.0); ABG pH (ARTERIAL) 7.456 UNITS (7.350-7.450)
[2021-04-11] MEDS: ADVAIR HFA 115/21MCG INHALER INH SCH ×2 (08:09→20:08)
[2021-04-11] MEDS: TIOTROPIUM INHALER/CAPSULE (SPIRIVA) INH SCH (08:09)
[2021-04-11 08:20] LABS: BASO % 0.1 % (0.0-1.0); HEMATOCRIT 40.1 % (42.0-52.0); HEMOGLOBIN 12.9 g/dl (13.5-17.5); LYMPH # 0.5 10^3/uL (1.5-5.0); LYMPH % 4.3 % (24.0-44.0); MEAN CORPUSCULAR HEMOGLOBIN 28.4 pg (27.0-33.0); MEAN CORPUSCULAR HGB CONC 32.2 g/dl (32.0-36.5); MEAN CORPUSCULAR VOLUME 88.3 fl (80.0-96.0); MONO # 0.6 10^3/uL (0.0-0.8); MONO % 4.5 % (2.0-8.0); NEUTROPHILS # 11.3 10^3/uL (1.5-8.5); NEUTROPHILS % 90.5 % (36.0-66.0); PLATELET COUNT, AUTOMATED 232 10^3/uL (150-450); RED BLOOD COUNT 4.54 10^6/uL (4.30-6.10); WHITE BLOOD COUNT 12.5 10^3/uL (4.0-10.0)
[2021-04-11 08:51] LABS: CK-MB VALUE MASS < 1.0 NG/ML (<3.6); CPK CREATINE PHOSPHOKINASE 66 U/L (39-308); MB/CK RELATIVE INDEX 1.52 (< OR =4)
[2021-04-11] MEDS: PANTOPRAZOLE 40MG TAB (PROTONIX) PO SCH ×2 (08:52→20:03)
[2021-04-11] MEDS: guaiFENesin ER 600 MG TAB PO SCH ×2 (08:52→20:03)
[2021-04-11] MEDS: amLODIPine 5 MG TAB PO SCH ×2 (08:53→20:26)
[2021-04-11] MEDS: CLOPIDOGREL 75 MG TAB PO SCH (08:53)
[2021-04-11] MEDS: CYANOCOBALAMIN 500 MCG TAB PO SCH (08:53)
[2021-04-11] MEDS: allopurinoL 100 MG TAB PO SCH (08:53)
[2021-04-11] MEDS: OLOPATADINE 0.1% OPHTH SOL 5ML(PATANOL) OU SCH ×2 (08:54→16:33)
[2021-04-11] MEDS: POLYVINYL ALCOHOL OPHTH SOLN 15 ML(LIQUITEARS) OU SCH ×4 (08:54→20:04)
[2021-04-11] MEDS: LIDOCAINE 5% (LIDODERM) PATCH TD SCH (08:54)
[2021-04-11] MEDS: FLUTICASONE PROP 0.05% NASAL SPRAY 16 GM (FLONASE) NARES SCH (08:55)
[2021-04-11 08:57] LABS: BLOOD UREA NITROGEN 58 MG/DL (7-18); CALCIUM LEVEL 9.4 MG/DL (8.8-10.2); CARBON DIOXIDE LEVEL 30 MEQ/L (21-32); CHLORIDE LEVEL 99 MEQ/L (98-107); CREATININE FOR GFR 1.09 MG/DL (0.70-1.30); GLOMERULAR FILTRATION RATE > 60.0 (>35); GLUCOSE, FASTING 125 MG/DL (70-100); POTASSIUM SERUM 3.6 MEQ/L (3.5-5.1); SODIUM LEVEL 139 MEQ/L (136-145)
[2021-04-11] MEDS ORDERED: methylPREDNISolone 125MG 2ML VIAL IV SCH (13:00)
[2021-04-11 16:00] LABS: CK-MB VALUE MASS < 1.0 NG/ML (<3.6); CPK CREATINE PHOSPHOKINASE 64 U/L (39-308); MB/CK RELATIVE INDEX 1.56 (< OR =4)
[2021-04-11] MEDS: ENOXAPARIN 30MG/0.3ML SYRINGE (J1650 PER 10MG) SC SCH (17:12)
[2021-04-11] MEDS: KETOROLAC 30 MG/ML 1ML VIAL IV SCH (17:13)
[2021-04-11 17:59] LABS: MAGNESIUM LEVEL 2.3 MG/DL (1.7-2.2)
[2021-04-11] MEDS: ASPIRIN 81MG ENTERIC TABLET PO SCH (20:02)
[2021-04-11] MEDS: TAMSULOSIN 0.4 MG CAP PO SCH (20:03)
[2021-04-11] MEDS: ROSUVASTATIN 10 MG TAB (CRESTOR) PO SCH (20:03)
[2021-04-11] MEDS: MONTELUKAST 10 MG TAB PO SCH (20:03)
[2021-04-11] MEDS: PRIMIDONE 50MG TAB PO SCH (20:03)
[2021-04-11] MEDS: SENOKOT S TAB PO SCH (20:03)
[2021-04-11] MEDS: **NOTE PATIENT COMMENT** MISC XX SCH (20:04)
[2021-04-11 22:01] LABS: ABG BASE EXCESS 4.3 (-2.0-2.0); ABG HCO3 28.7 MEQ/L (22.0-26.0); ABG O2 SATURATION 93.3 % (95.0-99.0); ABG PARTIAL PRESSURE CO2 41.8 mmHg (35.0-45.0); ABG PARTIAL PRESSURE O2 70.4 mmHg (75.0-100.0); ABG STANDARD HCO3 28.2 MEQ/L (22.0-26.0); ABG TOTAL CO2 29.9 MEQ/L (23.0-31.0); ABG pH (ARTERIAL) 7.454 UNITS (7.350-7.450)
[2021-04-12] VITALS (34 sets, daily range): BP systolic 120–148; BP diastolic 56–65; O2SAT 85–96
[2021-04-12] MEDS: KETOROLAC 30 MG/ML 1ML VIAL IV SCH ×3 (00:06→16:58)
[2021-04-12] MEDS: methylPREDNISolone 40MG 1ML VIAL IV SCH ×2 (00:06→12:00)
[2021-04-12] MEDS: LEVALBUTEROL 1.25 MG/0.5 ML CONCENTRATE NEB INH SCH ×7 (01:20→23:40)
[2021-04-12] MEDS: PIPERACILLIN/TAZOBACTAM SOD 4.5 GM in D5W MINI-BAG PLUS 50 ML IV SCH ×4 (03:00→20:01)
[2021-04-12 05:27] LABS: BASO % 0.1 % (0.0-1.0); HEMATOCRIT 35.9 % (42.0-52.0); HEMOGLOBIN 11.5 g/dl (13.5-17.5); LYMPH # 0.4 10^3/uL (1.5-5.0); LYMPH % 2.8 % (24.0-44.0); MEAN CORPUSCULAR HEMOGLOBIN 28.5 pg (27.0-33.0); MEAN CORPUSCULAR VOLUME 88.9 fl (80.0-96.0); MONO # 0.9 10^3/uL (0.0-0.8); MONO % 6.3 % (2.0-8.0); NEUTROPHILS # 13.2 10^3/uL (1.5-8.5); NEUTROPHILS % 90.1 % (36.0-66.0); PLATELET COUNT, AUTOMATED 209 10^3/uL (150-450); RED BLOOD COUNT 4.04 10^6/uL (4.30-6.10); WHITE BLOOD COUNT 14.7 10^3/uL (4.0-10.0)
[2021-04-12 05:50] LABS: BLOOD UREA NITROGEN 72 MG/DL (7-18); CALCIUM LEVEL 8.9 MG/DL (8.8-10.2); CARBON DIOXIDE LEVEL 29 MEQ/L (21-32); CHLORIDE LEVEL 101 MEQ/L (98-107); CREATININE FOR GFR 1.07 MG/DL (0.70-1.30); GLOMERULAR FILTRATION RATE > 60.0 (>35); GLUCOSE, FASTING 125 MG/DL (70-100); POTASSIUM SERUM 3.3 MEQ/L (3.5-5.1); SODIUM LEVEL 140 MEQ/L (136-145)
[2021-04-12] MEDS ORDERED: POTASSIUM CHLORIDE 10MEQ SR TABLET PO ONE (07:00)
[2021-04-12] MEDS: ADVAIR HFA 115/21MCG INHALER INH SCH ×2 (07:28→19:32)
[2021-04-12] MEDS: TIOTROPIUM INHALER/CAPSULE (SPIRIVA) INH SCH (07:28)
[2021-04-12] MEDS: amLODIPine 5 MG TAB PO SCH ×2 (09:00→20:03)
[2021-04-12] MEDS: MOM 30ML SUSPENSION UDC PO SCH (09:12)
[2021-04-12] MEDS: ENOXAPARIN 30MG/0.3ML SYRINGE (J1650 PER 10MG) SC SCH (09:14)
[2021-04-12] MEDS: LIDOCAINE 5% (LIDODERM) PATCH TD SCH (09:14)
[2021-04-12] MEDS: SENOKOT S TAB PO SCH ×2 (09:14→20:04)
[2021-04-12] MEDS: CLOPIDOGREL 75 MG TAB PO SCH (09:15)
[2021-04-12] MEDS: CYANOCOBALAMIN 500 MCG TAB PO SCH (09:15)
[2021-04-12] MEDS: allopurinoL 100 MG TAB PO SCH (09:15)
[2021-04-12] MEDS: guaiFENesin ER 600 MG TAB PO SCH ×2 (09:15→20:03)
[2021-04-12] MEDS: PANTOPRAZOLE 40MG TAB (PROTONIX) PO SCH ×2 (09:15→20:03)
[2021-04-12] MEDS: FLUTICASONE PROP 0.05% NASAL SPRAY 16 GM (FLONASE) NARES SCH (09:16)
[2021-04-12] MEDS: OLOPATADINE 0.1% OPHTH SOL 5ML(PATANOL) OU SCH ×2 (09:16→16:58)
[2021-04-12] MEDS: POLYVINYL ALCOHOL OPHTH SOLN 15 ML(LIQUITEARS) OU SCH ×4 (09:16→20:02)
[2021-04-12 15:09] LABS: BODY FLUID CULTURE Not indicated. (.); LEGIONELLA ANTIGEN URINE Negative (Negative); ORGANISM ID Not indicated. (.); SPECIMEN SOURCE Urine (.); URINE STREP PNEUMONIAE ANTIGEN Negative (Negative)
[2021-04-12 15:10] LABS: MAGNESIUM LEVEL 2.3 MG/DL (1.7-2.2)
[2021-04-12] MEDS: **NOTE PATIENT COMMENT** MISC XX SCH (20:02)
[2021-04-12] MEDS: PRIMIDONE 50MG TAB PO SCH (20:03)
[2021-04-12] MEDS: ASPIRIN 81MG ENTERIC TABLET PO SCH (20:03)
[2021-04-12] MEDS: MONTELUKAST 10 MG TAB PO SCH (20:03)
[2021-04-12] MEDS: TAMSULOSIN 0.4 MG CAP PO SCH (20:03)
[2021-04-12] MEDS: ROSUVASTATIN 10 MG TAB (CRESTOR) PO SCH (20:03)
[2021-04-13] VITALS (25 sets, daily range): BP systolic 114–135; BP diastolic 58–63; O2SAT 90–98
[2021-04-13] MEDS: KETOROLAC 30 MG/ML 1ML VIAL IV SCH ×3 (00:05→16:00)
[2021-04-13] MEDS: PIPERACILLIN/TAZOBACTAM SOD 4.5 GM in D5W MINI-BAG PLUS 50 ML IV SCH ×4 (02:00→21:10)
[2021-04-13] MEDS: LEVALBUTEROL 1.25 MG/0.5 ML CONCENTRATE NEB INH SCH ×6 (03:36→23:41)
[2021-04-13 06:44] LABS: EOS % 0.2 % (0.0-3.0); HEMATOCRIT 35.7 % (42.0-52.0); HEMOGLOBIN 11.4 g/dl (13.5-17.5); LYMPH # 1.3 10^3/uL (1.5-5.0); LYMPH % 14.5 % (24.0-44.0); MEAN CORPUSCULAR HEMOGLOBIN 28.6 pg (27.0-33.0); MEAN CORPUSCULAR HGB CONC 31.9 g/dl (32.0-36.5); MEAN CORPUSCULAR VOLUME 89.7 fl (80.0-96.0); MONO # 0.8 10^3/uL (0.0-0.8); NEUTROPHILS # 6.8 10^3/uL (1.5-8.5); NEUTROPHILS % 75.5 % (36.0-66.0); PLATELET COUNT, AUTOMATED 190 10^3/uL (150-450); RED BLOOD COUNT 3.98 10^6/uL (4.30-6.10)
[2021-04-13 07:01] LABS: BLOOD UREA NITROGEN 62 MG/DL (7-18); CALCIUM LEVEL 8.7 MG/DL (8.8-10.2); CARBON DIOXIDE LEVEL 28 MEQ/L (21-32); CHLORIDE LEVEL 104 MEQ/L (98-107); CREATININE FOR GFR 0.85 MG/DL (0.70-1.30); GLOMERULAR FILTRATION RATE > 60.0 (>35); GLUCOSE, FASTING 92 MG/DL (70-100); SODIUM LEVEL 142 MEQ/L (136-145)
[2021-04-13] MEDS: TIOTROPIUM INHALER/CAPSULE (SPIRIVA) INH SCH (07:08)
[2021-04-13] MEDS: ADVAIR HFA 115/21MCG INHALER INH SCH ×2 (07:09→20:03)
[2021-04-13] MEDS: MOM 30ML SUSPENSION UDC PO SCH (08:29)
[2021-04-13] MEDS: ENOXAPARIN 30MG/0.3ML SYRINGE (J1650 PER 10MG) SC SCH (08:29)
[2021-04-13] MEDS: LIDOCAINE 5% (LIDODERM) PATCH TD SCH (08:30)
[2021-04-13] MEDS: OLOPATADINE 0.1% OPHTH SOL 5ML(PATANOL) OU SCH ×2 (08:30→16:01)
[2021-04-13] MEDS: POLYVINYL ALCOHOL OPHTH SOLN 15 ML(LIQUITEARS) OU SCH ×4 (08:30→21:11)
[2021-04-13] MEDS: FLUTICASONE PROP 0.05% NASAL SPRAY 16 GM (FLONASE) NARES SCH (08:30)
[2021-04-13] MEDS: PANTOPRAZOLE 40MG TAB (PROTONIX) PO SCH ×2 (08:31→21:09)
[2021-04-13] MEDS: amLODIPine 5 MG TAB PO SCH ×2 (08:31→21:09)
[2021-04-13] MEDS: SENOKOT S TAB PO SCH ×2 (08:31→21:00)
[2021-04-13] MEDS: CLOPIDOGREL 75 MG TAB PO SCH (08:31)
[2021-04-13] MEDS: CYANOCOBALAMIN 500 MCG TAB PO SCH (08:31)
[2021-04-13] MEDS: guaiFENesin ER 600 MG TAB PO SCH ×2 (08:31→21:10)
[2021-04-13] MEDS: allopurinoL 100 MG TAB PO SCH (08:32)
[2021-04-13] MEDS: oxyCODONE 5MG TAB PO PRN ×3 (08:32→21:28)
[2021-04-13 17:35] LABS: MAGNESIUM LEVEL 2.5 MG/DL (1.7-2.2)
[2021-04-13] MEDS: MONTELUKAST 10 MG TAB PO SCH (21:09)
[2021-04-13] MEDS: TAMSULOSIN 0.4 MG CAP PO SCH (21:09)
[2021-04-13] MEDS: PRIMIDONE 50MG TAB PO SCH (21:09)
[2021-04-13] MEDS: **NOTE PATIENT COMMENT** MISC XX SCH (21:10)
[2021-04-13] MEDS: ROSUVASTATIN 10 MG TAB (CRESTOR) PO SCH (21:10)
[2021-04-13] MEDS: ASPIRIN 81MG ENTERIC TABLET PO SCH (21:10)
[2021-04-14] VITALS (15 sets, daily range): BP systolic 118–131; BP diastolic 56–60; O2SAT 87–98
[2021-04-14] MEDS: KETOROLAC 30 MG/ML 1ML VIAL IV SCH ×3 (02:00→17:36)
[2021-04-14] MEDS: PIPERACILLIN/TAZOBACTAM SOD 4.5 GM in D5W MINI-BAG PLUS 50 ML IV SCH ×4 (02:01→22:31)
[2021-04-14] MEDS: LEVALBUTEROL 1.25 MG/0.5 ML CONCENTRATE NEB INH SCH ×6 (03:32→23:11)
[2021-04-14 05:51] LABS: BASO % 0.1 % (0.0-1.0); EOS # 0.2 10^3/uL (0.0-0.5); EOS % 1.9 % (0.0-3.0); HEMATOCRIT 36.7 % (42.0-52.0); HEMOGLOBIN 11.6 g/dl (13.5-17.5); LYMPH # 1.2 10^3/uL (1.5-5.0); LYMPH % 13.8 % (24.0-44.0); MEAN CORPUSCULAR HEMOGLOBIN 28.6 pg (27.0-33.0); MEAN CORPUSCULAR HGB CONC 31.6 g/dl (32.0-36.5); MEAN CORPUSCULAR VOLUME 90.4 fl (80.0-96.0); MONO # 0.8 10^3/uL (0.0-0.8); MONO % 8.8 % (2.0-8.0); NEUTROPHILS # 6.4 10^3/uL (1.5-8.5); NEUTROPHILS % 74.8 % (36.0-66.0); PLATELET COUNT, AUTOMATED 192 10^3/uL (150-450); RED BLOOD COUNT 4.06 10^6/uL (4.30-6.10); WHITE BLOOD COUNT 8.6 10^3/uL (4.0-10.0)
[2021-04-14 06:04] LABS: BLOOD UREA NITROGEN 48 MG/DL (7-18); CALCIUM LEVEL 8.6 MG/DL (8.8-10.2); CARBON DIOXIDE LEVEL 31 MEQ/L (21-32); CHLORIDE LEVEL 104 MEQ/L (98-107); CREATININE FOR GFR 0.81 MG/DL (0.70-1.30); GLOMERULAR FILTRATION RATE > 60.0 (>35); GLUCOSE, FASTING 88 MG/DL (70-100); POTASSIUM SERUM 3.6 MEQ/L (3.5-5.1); SODIUM LEVEL 142 MEQ/L (136-145)
[2021-04-14] MEDS: ADVAIR HFA 115/21MCG INHALER INH SCH ×2 (07:12→19:08)
[2021-04-14] MEDS: TIOTROPIUM INHALER/CAPSULE (SPIRIVA) INH SCH (07:12)
[2021-04-14] MEDS: ENOXAPARIN 30MG/0.3ML SYRINGE (J1650 PER 10MG) SC SCH (08:43)
[2021-04-14] MEDS: PANTOPRAZOLE 40MG TAB (PROTONIX) PO SCH ×2 (08:44→22:31)
[2021-04-14] MEDS: MOM 30ML SUSPENSION UDC PO SCH (08:44)
[2021-04-14] MEDS: guaiFENesin ER 600 MG TAB PO SCH ×2 (08:44→22:32)
[2021-04-14] MEDS: CYANOCOBALAMIN 500 MCG TAB PO SCH (08:44)
[2021-04-14] MEDS: CLOPIDOGREL 75 MG TAB PO SCH (08:44)
[2021-04-14] MEDS: amLODIPine 5 MG TAB PO SCH ×2 (08:45→22:34)
[2021-04-14] MEDS: allopurinoL 100 MG TAB PO SCH (08:45)
[2021-04-14] MEDS: SENOKOT S TAB PO SCH ×2 (08:45→22:32)
[2021-04-14] MEDS: LIDOCAINE 5% (LIDODERM) PATCH TD SCH (08:46)
[2021-04-14] MEDS: OLOPATADINE 0.1% OPHTH SOL 5ML(PATANOL) OU SCH ×2 (08:50→17:36)
[2021-04-14] MEDS: POLYVINYL ALCOHOL OPHTH SOLN 15 ML(LIQUITEARS) OU SCH ×4 (08:50→22:37)
[2021-04-14] MEDS: FLUTICASONE PROP 0.05% NASAL SPRAY 16 GM (FLONASE) NARES SCH (08:50)
[2021-04-14] MEDS: oxyCODONE 5MG TAB PO PRN (15:14)
[2021-04-14 15:31] LABS: MAGNESIUM LEVEL 2.4 MG/DL (1.8-2.4)
[2021-04-14] MEDS: TAMSULOSIN 0.4 MG CAP PO SCH (22:31)
[2021-04-14] MEDS: PRIMIDONE 50MG TAB PO SCH (22:31)
[2021-04-14] MEDS: MONTELUKAST 10 MG TAB PO SCH (22:32)
[2021-04-14] MEDS: ROSUVASTATIN 10 MG TAB (CRESTOR) PO SCH (22:32)
[2021-04-14] MEDS: ASPIRIN 81MG ENTERIC TABLET PO SCH (22:32)
[2021-04-14] MEDS: **NOTE PATIENT COMMENT** MISC XX SCH (22:37)
[2021-04-15] MEDS: KETOROLAC 30 MG/ML 1ML VIAL IV SCH ×3 (01:43→16:34)
[2021-04-15] MEDS: LEVALBUTEROL 1.25 MG/0.5 ML CONCENTRATE NEB INH SCH ×6 (03:23→23:08)
[2021-04-15] MEDS: PIPERACILLIN/TAZOBACTAM SOD 4.5 GM in D5W MINI-BAG PLUS 50 ML IV SCH ×4 (04:08→22:01)
[2021-04-15 06:00] VITALS: BP 115/49
[2021-04-15 07:00] VITALS: BP 114/50
[2021-04-15] MEDS: TIOTROPIUM INHALER/CAPSULE (SPIRIVA) INH SCH (07:35)
[2021-04-15] MEDS: ADVAIR HFA 115/21MCG INHALER INH SCH ×2 (07:36→19:32)
[2021-04-15 07:40] LABS: BASO % 0.1 % (0.0-1.0); EOS # 0.2 10^3/uL (0.0-0.5); EOS % 2.4 % (0.0-3.0); HEMATOCRIT 35.3 % (42.0-52.0); HEMOGLOBIN 11.1 g/dl (13.5-17.5); LYMPH % 10.2 % (24.0-44.0); MEAN CORPUSCULAR HEMOGLOBIN 28.8 pg (27.0-33.0); MEAN CORPUSCULAR HGB CONC 31.4 g/dl (32.0-36.5); MEAN CORPUSCULAR VOLUME 91.5 fl (80.0-96.0); MONO # 0.8 10^3/uL (0.0-0.8); MONO % 7.7 % (2.0-8.0); NEUTROPHILS # 7.8 10^3/uL (1.5-8.5); NEUTROPHILS % 79.1 % (36.0-66.0); PLATELET COUNT, AUTOMATED 195 10^3/uL (150-450); RED BLOOD COUNT 3.86 10^6/uL (4.30-6.10); WHITE BLOOD COUNT 9.8 10^3/uL (4.0-10.0)
[2021-04-15 08:01] LABS: BLOOD UREA NITROGEN 48 MG/DL (7-18); CALCIUM LEVEL 8.9 MG/DL (8.8-10.2); CARBON DIOXIDE LEVEL 30 MEQ/L (21-32); CHLORIDE LEVEL 108 MEQ/L (98-107); CREATININE FOR GFR 0.93 MG/DL (0.70-1.30); GLOMERULAR FILTRATION RATE > 60.0 (>35); GLUCOSE, FASTING 86 MG/DL (70-100); MAGNESIUM LEVEL 2.2 MG/DL (1.8-2.4); POTASSIUM SERUM 3.8 MEQ/L (3.5-5.1); SODIUM LEVEL 145 MEQ/L (136-145)
[2021-04-15] MEDS: MOM 30ML SUSPENSION UDC PO SCH (09:00)
[2021-04-15] MEDS: SENOKOT S TAB PO SCH ×2 (09:00→22:01)
[2021-04-15] MEDS: LIDOCAINE 5% (LIDODERM) PATCH TD SCH (10:00)
[2021-04-15] MEDS: CLOPIDOGREL 75 MG TAB PO SCH (10:02)
[2021-04-15] MEDS: ENOXAPARIN 30MG/0.3ML SYRINGE (J1650 PER 10MG) SC SCH (10:02)
[2021-04-15] MEDS: FLUTICASONE PROP 0.05% NASAL SPRAY 16 GM (FLONASE) NARES SCH (10:03)
[2021-04-15] MEDS: POLYVINYL ALCOHOL OPHTH SOLN 15 ML(LIQUITEARS) OU SCH ×4 (10:03→22:03)
[2021-04-15] MEDS: allopurinoL 100 MG TAB PO SCH (10:03)
[2021-04-15] MEDS: CYANOCOBALAMIN 500 MCG TAB PO SCH (10:03)
[2021-04-15] MEDS: PANTOPRAZOLE 40MG TAB (PROTONIX) PO SCH ×2 (10:03→22:02)
[2021-04-15] MEDS: guaiFENesin ER 600 MG TAB PO SCH ×2 (10:04→22:02)
[2021-04-15] MEDS: OLOPATADINE 0.1% OPHTH SOL 5ML(PATANOL) OU SCH ×2 (10:04→16:34)
[2021-04-15] MEDS: amLODIPine 5 MG TAB PO SCH ×2 (10:06→22:02)
[2021-04-15 14:00] VITALS: BP 132/58
[2021-04-15 22:00] VITALS: BP 124/51
[2021-04-15] MEDS: ROSUVASTATIN 10 MG TAB (CRESTOR) PO SCH (22:01)
[2021-04-15] MEDS: PRIMIDONE 50MG TAB PO SCH (22:02)
[2021-04-15] MEDS: MONTELUKAST 10 MG TAB PO SCH (22:02)
[2021-04-15] MEDS: TAMSULOSIN 0.4 MG CAP PO SCH (22:02)
[2021-04-15] MEDS: ASPIRIN 81MG ENTERIC TABLET PO SCH (22:02)
[2021-04-15] MEDS: **NOTE PATIENT COMMENT** MISC XX SCH (22:04)
[2021-04-15] MEDS: oxyCODONE 5MG TAB PO PRN (22:09)
[2021-04-16] MEDS: PIPERACILLIN/TAZOBACTAM SOD 4.5 GM in D5W MINI-BAG PLUS 50 ML IV SCH (02:26)
[2021-04-16] MEDS: KETOROLAC 30 MG/ML 1ML VIAL IV SCH ×2 (02:26→09:16)
[2021-04-16] MEDS: LEVALBUTEROL 1.25 MG/0.5 ML CONCENTRATE NEB INH SCH ×3 (03:00→11:37)
[2021-04-16 06:00] VITALS: BP 116/50
[2021-04-16 06:53] LABS: BASO % 0.3 % (0.0-1.0); EOS # 0.3 10^3/uL (0.0-0.5); EOS % 2.7 % (0.0-3.0); HEMATOCRIT 36.3 % (42.0-52.0); HEMOGLOBIN 11.2 g/dl (13.5-17.5); LYMPH # 0.9 10^3/uL (1.5-5.0); LYMPH % 7.9 % (24.0-44.0); MEAN CORPUSCULAR HEMOGLOBIN 28.5 pg (27.0-33.0); MEAN CORPUSCULAR HGB CONC 30.9 g/dl (32.0-36.5); MEAN CORPUSCULAR VOLUME 92.4 fl (80.0-96.0); MONO # 0.8 10^3/uL (0.0-0.8); NEUTROPHILS # 9.3 10^3/uL (1.5-8.5); NEUTROPHILS % 81.7 % (36.0-66.0); PLATELET COUNT, AUTOMATED 191 10^3/uL (150-450); RED BLOOD COUNT 3.93 10^6/uL (4.30-6.10); WHITE BLOOD COUNT 11.3 10^3/uL (4.0-10.0)
[2021-04-16 07:12] LABS: BLOOD UREA NITROGEN 49 MG/DL (7-18); CALCIUM LEVEL 9.1 MG/DL (8.8-10.2); CARBON DIOXIDE LEVEL 31 MEQ/L (21-32); CHLORIDE LEVEL 109 MEQ/L (98-107); CREATININE FOR GFR 0.86 MG/DL (0.70-1.30); GLOMERULAR FILTRATION RATE > 60.0 (>35); GLUCOSE, FASTING 96 MG/DL (70-100); MAGNESIUM LEVEL 2.1 MG/DL (1.8-2.4); POTASSIUM SERUM 4.4 MEQ/L (3.5-5.1); SODIUM LEVEL 143 MEQ/L (136-145)
[2021-04-16] MEDS ORDERED: FUROSEMIDE 40MG/4ML VIAL (J1940) IV ONE (07:25)
[2021-04-16] MEDS ORDERED: LevoFLOXacin 750 MG TABLET PO ONE (07:30)
[2021-04-16] MEDS: ADVAIR HFA 115/21MCG INHALER INH SCH (08:21)
[2021-04-16] MEDS: TIOTROPIUM INHALER/CAPSULE (SPIRIVA) INH SCH (08:21)
[2021-04-16 09:00] VITALS: BP 130/50
[2021-04-16] MEDS: MOM 30ML SUSPENSION UDC PO SCH (09:00)
[2021-04-16] MEDS: amLODIPine 5 MG TAB PO SCH (09:00)
[2021-04-16] MEDS: CYANOCOBALAMIN 500 MCG TAB PO SCH (09:16)
[2021-04-16] MEDS: guaiFENesin ER 600 MG TAB PO SCH (09:16)
[2021-04-16] MEDS: allopurinoL 100 MG TAB PO SCH (09:16)
[2021-04-16] MEDS: SENOKOT S TAB PO SCH (09:16)
[2021-04-16] MEDS: PANTOPRAZOLE 40MG TAB (PROTONIX) PO SCH (09:16)
[2021-04-16] MEDS: CLOPIDOGREL 75 MG TAB PO SCH (09:16)
[2021-04-16] MEDS: ENOXAPARIN 30MG/0.3ML SYRINGE (J1650 PER 10MG) SC SCH (09:19)
[2021-04-16] MEDS: OLOPATADINE 0.1% OPHTH SOL 5ML(PATANOL) OU SCH (09:19)
[2021-04-16] MEDS: LIDOCAINE 5% (LIDODERM) PATCH TD SCH (09:19)
[2021-04-16] MEDS: FLUTICASONE PROP 0.05% NASAL SPRAY 16 GM (FLONASE) NARES SCH (09:20)
[2021-04-16] MEDS: POLYVINYL ALCOHOL OPHTH SOLN 15 ML(LIQUITEARS) OU SCH (09:20)
[2021-04-16] MEDS ORDERED: IBUP-1022 PO (11:11)
[2021-04-16] MEDS ORDERED: OXYC-517 PO (11:11)
[2021-04-16] MEDS ORDERED: LEVO750T13 PO (11:11)
[2021-04-16] MEDS ORDERED: MUCI600T31 PO (11:11)
[2021-04-17] MEDS ORDERED: LevoFLOXacin 750 MG TABLET PO SCH (06:00)
== END 2021-04-16 14:02 | disposition home or self-care (01) | DRG 135 ==
LOC: M ED 22:14 → EDBD 22:14 → M ED INP 04-09 02:24 → M PCU 04-09 03:30 → M MSPAV 04-14 16:40
PROVIDERS: ADMIT Family Medicine; ATTEND Internal Medicine Nephrology
DX: S22.42XA Multiple fractures of ribs, left side, initial encounter for closed fracture (principal); J96.01 Acute respiratory failure with hypoxia; J18.9 Pneumonia, unspecified organism; I27.20 Pulmonary hypertension, unspecified; J44.1 Chronic obstructive pulmonary disease with (acute) exacerbation; J84.10 Pulmonary fibrosis, unspecified; J90 Pleural effusion, not elsewhere classified; I10 Essential (primary) hypertension; E78.5 Hyperlipidemia, unspecified; M10.9 Gout, unspecified; I25.10 Atherosclerotic heart disease of native coronary artery without angina pectoris; Z95.5 Presence of coronary angioplasty implant and graft; Z86.73 Personal history of transient ischemic attack (TIA), and cerebral infarction without residual deficits; W00.0XXA Fall on same level due to ice and snow, initial encounter; Y92.9 Unspecified place or not applicable; Z79.82 Long term (current) use of aspirin; Z79.899 Other long term (current) drug therapy; K22.70 Barrett's esophagus without dysplasia; G25.0 Essential tremor; K21.9 Gastro-esophageal reflux disease without esophagitis; G47.33 Obstructive sleep apnea (adult) (pediatric); E66.9 Obesity, unspecified; Z90.49 Acquired absence of other specified parts of digestive tract; Z98.41 Cataract extraction status, right eye; Z98.42 Cataract extraction status, left eye; F17.290 Nicotine dependence, other tobacco product, uncomplicated; Z20.822 Contact with and (suspected) exposure to COVID-19; J98.11 Atelectasis; I08.0 Rheumatic disorders of both mitral and aortic valves; N40.1 Benign prostatic hyperplasia with lower urinary tract symptoms; D35.00 Benign neoplasm of unspecified adrenal gland

== ENCOUNTER → 2021-04-20 | Outpatient (REF) | payer BC, MEDICARE ==
[~2021-04-20] MED LIST changes: +IBUP-1022 PO; +LEVO750T13 PO; +MUCI600T31 PO; +OXYC-517 PO
[2021-04-20 16:53] LABS: BLOOD UREA NITROGEN 22 MG/DL (7-18); CALCIUM LEVEL 9.5 MG/DL (8.8-10.2); CARBON DIOXIDE LEVEL 27 MEQ/L (21-32); CHLORIDE LEVEL 108 MEQ/L (98-107); CREATININE FOR GFR 0.87 MG/DL (0.70-1.30); FREE T4 1.37 NG/DL (0.76-1.46); GLOMERULAR FILTRATION RATE > 60.0 (>35); GLUCOSE, FASTING 80 MG/DL (70-100); MAGNESIUM LEVEL 2.1 MG/DL (1.8-2.4); SODIUM LEVEL 143 MEQ/L (136-145); THYROID STIMULATING HORMONE 0.412 uIU/ML (0.358-3.740)
[2021-04-20 17:03] LABS: HEMATOCRIT 38.7 % (42.0-52.0); HEMOGLOBIN 12.4 g/dl (13.5-17.5); MEAN CORPUSCULAR HEMOGLOBIN 28.6 pg (27.0-33.0); MEAN CORPUSCULAR VOLUME 89.4 fl (80.0-96.0); PLATELET COUNT, AUTOMATED 226 10^3/uL (150-450); RED BLOOD COUNT 4.33 10^6/uL (4.30-6.10); WHITE BLOOD COUNT 10.6 10^3/uL (4.0-10.0)
== END ==
LOC: M SFHCADAM 12:13
PROVIDERS: ATTEND Physician Assistant
DX: I49.8 Other specified cardiac arrhythmias (principal)

== ENCOUNTER → 2021-05-10 | Outpatient (REF) | payer BC, MEDICARE ==
[2021-05-10 17:50] LABS: BLOOD UREA NITROGEN 26 MG/DL (7-18); CALCIUM LEVEL 9.5 MG/DL (8.8-10.2); CARBON DIOXIDE LEVEL 31 MEQ/L (21-32); CHLORIDE LEVEL 103 MEQ/L (98-107); CREATININE FOR GFR 0.72 MG/DL (0.70-1.30); GLOMERULAR FILTRATION RATE > 60.0 (>35); GLUCOSE, FASTING 73 MG/DL (70-100); POTASSIUM SERUM 4.3 MEQ/L (3.5-5.1); SODIUM LEVEL 138 MEQ/L (136-145)
== END ==
LOC: M LABDRWAD 16:11
PROVIDERS: ATTEND Internal Medicine Cardiovascular Disease
DX: R60.9 Edema, unspecified (principal)

== ENCOUNTER → 2021-05-10 | Outpatient (CLI) | payer BC, MEDICARE | LOC: M ADAMS 13:44 | PROVIDERS: ATTEND Physician Assistant | DX: J90 Pleural effusion, not elsewhere classified (principal) ==

== ENCOUNTER → 2021-08-25 | Outpatient (CLI) | payer BC, MEDICARE ==
[2021-08-25 13:11] LABS: HEMATOCRIT 36.2 % (42.0-52.0); HEMOGLOBIN 11.5 g/dl (13.5-17.5); MEAN CORPUSCULAR HEMOGLOBIN 29.7 pg (27.0-33.0); MEAN CORPUSCULAR HGB CONC 31.8 g/dl (32.0-36.5); MEAN CORPUSCULAR VOLUME 93.5 fl (80.0-96.0); PLATELET COUNT, AUTOMATED 204 10^3/uL (150-450); RED BLOOD COUNT 3.87 10^6/uL (4.30-6.10); WHITE BLOOD COUNT 7.9 10^3/uL (4.0-10.0)
[2021-08-25 13:47] LABS: BLOOD UREA NITROGEN 14 MG/DL (7-18); CALCIUM LEVEL 8.7 MG/DL (8.8-10.2); CARBON DIOXIDE LEVEL 31 MEQ/L (21-32); CHLORIDE LEVEL 105 MEQ/L (98-107); CREATININE FOR GFR 0.78 MG/DL (0.70-1.30); GLOMERULAR FILTRATION RATE > 60.0 (>35); GLUCOSE, FASTING 81 MG/DL (70-100); POTASSIUM SERUM 4.3 MEQ/L (3.5-5.1); SODIUM LEVEL 139 MEQ/L (136-145)
== END ==
LOC: M WUC 09:38
PROVIDERS: ATTEND Internal Medicine Cardiovascular Disease
DX: I25.10 Atherosclerotic heart disease of native coronary artery without angina pectoris (principal); Z95.1 Presence of aortocoronary bypass graft; I10 Essential (primary) hypertension; E78.2 Mixed hyperlipidemia; I49.5 Sick sinus syndrome; I47.1 Supraventricular tachycardia; I71.4 Abdominal aortic aneurysm, without rupture; G47.33 Obstructive sleep apnea (adult) (pediatric); I63.9 Cerebral infarction, unspecified; I48.91 Unspecified atrial fibrillation

== ENCOUNTER → 2021-08-31 | Outpatient (REF) | payer BC, MEDICARE | LOC: M SFHCADAM 16:04 | PROVIDERS: ATTEND Physician Assistant | DX: J40 Bronchitis, not specified as acute or chronic (principal) ==

== ENCOUNTER → 2021-09-08 | Outpatient (CLI) | payer BC, MEDICARE | LOC: M ADAMS 14:13 | PROVIDERS: ATTEND Physician Assistant | DX: J40 Bronchitis, not specified as acute or chronic (principal) ==

== ENCOUNTER → 2021-12-01 | Outpatient (REF) | payer BC, MEDICARE ==
[~2021-12-01] MED LIST changes: +LEVO1TAB40 PO; -LEVO750T13 PO
[2021-12-01 18:27] LABS: BLOOD UREA NITROGEN 19 MG/DL (7-18); CREATININE FOR GFR 0.94 MG/DL (0.70-1.30); GLOMERULAR FILTRATION RATE > 60.0 (>35)
== END ==
LOC: M LABDRWAD 16:17
PROVIDERS: ATTEND Radiology Vascular & Interventional Radiology
DX: I71.4 Abdominal aortic aneurysm, without rupture (principal)

== ENCOUNTER → 2021-12-08 | Outpatient (CLI) | payer BC, MEDICARE ==
[~2021-12-08] MED LIST changes: +ISOVUE-370 76% 100ML VIAL As Ordered ONE
== END ==
LOC: M RAD 08:47
PROVIDERS: ATTEND Radiology Vascular & Interventional Radiology
DX: I71.40 Abdominal aortic aneurysm, without rupture, unspecified (principal); K57.30 Diverticulosis of large intestine without perforation or abscess without bleeding; Z95.828 Presence of other vascular implants and grafts; N28.1 Cyst of kidney, acquired; N41.1 Chronic prostatitis; D35.01 Benign neoplasm of right adrenal gland
CPT/HCPCS: 74174; Q9967

== ENCOUNTER → 2022-03-01 | Outpatient (CLI) | payer BC, MEDICARE ==
[~2022-03-01] MED LIST changes: +CLOP75TA99 PO; -ISOVUE-370 76% 100ML VIAL As Ordered ONE; -PLAV1TAB2 PO
== END ==
LOC: M ADAMS 13:30
PROVIDERS: ATTEND Physician Assistant
DX: J20.9 Acute bronchitis, unspecified (principal)

== ENCOUNTER → 2022-03-08 | Outpatient (CLI) | payer BC, MEDICARE | LOC: M PLAIMG 13:53 | PROVIDERS: ATTEND Physician Assistant | DX: R05.3 Chronic cough (principal); J44.1 Chronic obstructive pulmonary disease with (acute) exacerbation ==

== ENCOUNTER → 2022-03-09 | Outpatient (REF) | payer BC, MEDICARE | LOC: M SFHCPLAZ 12:35 | PROVIDERS: ATTEND Physician Assistant | DX: R05.3 Chronic cough (principal) ==

== ENCOUNTER → 2022-05-21 | Outpatient (CLI) | payer MEDICARE, BC ==
[2022-05-21 14:30] LABS: HEMOGLOBIN 11.1 g/dl (13.5-17.5); MEAN CORPUSCULAR HEMOGLOBIN 27.6 pg (27.0-33.0); MEAN CORPUSCULAR HGB CONC 30.8 g/dl (32.0-36.5); MEAN CORPUSCULAR VOLUME 89.6 fl (80.0-96.0); PLATELET COUNT, AUTOMATED 209 10^3/uL (150-450); RED BLOOD COUNT 4.02 10^6/uL (4.30-6.10); WHITE BLOOD COUNT 6.6 10^3/uL (4.0-10.0)
[2022-05-21 14:35] LABS: ALT/SGPT 12 U/L (7.0-40); AST/SGOT 14 U/L (<34); BLOOD UREA NITROGEN 19 MG/DL (9-23); CALCIUM LEVEL 8.5 MG/DL (8.3-10.6); CARBON DIOXIDE LEVEL 29 MMOL/L (20-31); CHLORIDE LEVEL 106 MMOL/L (98-107); CHOLESTEROL LEVEL 110 MG/DL (<200); CHOLESTEROL RISK RATIO 2.07 (<5); CREATININE FOR GFR 0.84 MG/DL (0.70-1.30); GLOMERULAR FILTRATION RATE > 60.0 (>35); GLUCOSE, FASTING 106 MG/DL (74-106); HDL CHOLESTEROL 52.9 MG/DL (>40); LDL CHOLESTEROL 40.5 MG/DL (<100); NON-HDL-C 57.1 MG/DL; POTASSIUM SERUM 4.1 MMOL/L (3.5-5.1); SODIUM LEVEL 142 MMOL/L (136-145); TRIGLYCERIDES LEVEL 83 MG/DL (<150)
[2022-05-21 14:38] LABS: TOTAL 25(OH) VITAMIN D 42.2 NG/ML (20.0-100.0)
== END ==
LOC: M LABDRWAD 08:36
PROVIDERS: ATTEND Nurse Practitioner Adult Health
DX: I25.10 Atherosclerotic heart disease of native coronary artery without angina pectoris (principal); Z95.1 Presence of aortocoronary bypass graft; I21.19 ST elevation (STEMI) myocardial infarction involving other coronary artery of inferior wall; I63.9 Cerebral infarction, unspecified; I10 Essential (primary) hypertension; E78.2 Mixed hyperlipidemia; G47.33 Obstructive sleep apnea (adult) (pediatric); E55.9 Vitamin D deficiency, unspecified; R35.1 Nocturia; Z12.5 Encounter for screening for malignant neoplasm of prostate
CPT/HCPCS: 36415; 80048; 80061; 82306; 84450; 84460; 85027; G0103

== ENCOUNTER → 2022-07-19 | Outpatient (REF) | payer BC, MEDICARE ==
[~2022-07-19] MED LIST changes: +FLUT50SP17; +FLUT50SP17 NARES; -FLUTISP; -FLUTISP NARES
[2022-07-19 13:57] LABS: BASO % 0.5 % (0.0-1.0); EOS # 0.1 10^3/uL (0.0-0.5); EOS % 0.6 % (0.0-3.0); HEMATOCRIT 35.7 % (42.0-52.0); LYMPH # 1.2 10^3/uL (1.5-5.0); LYMPH % 14.8 % (24.0-44.0); MEAN CORPUSCULAR HGB CONC 30.8 g/dl (32.0-36.5); MEAN CORPUSCULAR VOLUME 87.7 fl (80.0-96.0); MONO # 0.9 10^3/uL (0.0-0.8); MONO % 11.8 % (2.0-8.0); NEUTROPHILS # 5.6 10^3/uL (1.5-8.5); PLATELET COUNT, AUTOMATED 248 10^3/uL (150-450); RED BLOOD COUNT 4.07 10^6/uL (4.30-6.10); WHITE BLOOD COUNT 7.8 10^3/uL (4.0-10.0)
[2022-07-19 14:00] LABS: BLOOD UREA NITROGEN 23 MG/DL (9-23); CALCIUM LEVEL 9.1 MG/DL (8.3-10.6); CARBON DIOXIDE LEVEL 31 MMOL/L (20-31); CHLORIDE LEVEL 106 MMOL/L (98-107); GLOMERULAR FILTRATION RATE > 60.0 (>35); GLUCOSE, FASTING 78 MG/DL (74-106); POTASSIUM SERUM 4.7 MMOL/L (3.5-5.1); SODIUM LEVEL 141 MMOL/L (136-145)
[2022-07-19 14:02] LABS: THYROID STIMULATING HORMONE 1.114 uIU/ML (0.55-4.78); VITAMIN B12 LEVEL 402 PG/ML (211-911)
== END ==
LOC: M SFHCADAM 10:39
PROVIDERS: ATTEND Physician Assistant
DX: R53.83 Other fatigue (principal); G62.9 Polyneuropathy, unspecified

== ENCOUNTER → 2022-09-12 | Outpatient (CLI) | payer BC, MEDICARE | LOC: M WUC 12:01 | PROVIDERS: ATTEND Physician Assistant | DX: S63.8X2A Sprain of other part of left wrist and hand, initial encounter (principal) ==

== ENCOUNTER 2023-01-18 16:26 | Inpatient (IN) | payer BC, MEDICARE ==
[~2023-01-18] VITALS: Ht 180.3 cm; Wt 98.3 kg
[2023-01-18] MEDS: PRIMIDONE 50MG TAB PO SCH (02:19)
[2023-01-18] MEDS: guaiFENesin 200 MG TAB PO SCH (02:20)
[~2023-01-18 16:26] MED LIST changes: -CEFD300C41 PO; +CEFD300C42 PO; -GABA-283 PO; +GABA-284 PO
[2023-01-18] MEDS ORDERED: FURO40TA2 PO (17:51)
[2023-01-18 17:52] LABS: VENOUS BASE EXCESS 2.4 (-2.0-2.0); VENOUS HCO3 26.1 MMOL/L (23.0-27.0); VENOUS O2 SATURATION 97.6 % (60.0-80.0); VENOUS PARTIAL PRESSURE CO2 36.9 mmHg (38.0-50.0); VENOUS PARTIAL PRESSURE O2 97.2 mmHg (30.0-50.0); VENOUS PH 7.467 UNITS (7.330-7.430); VENOUS STANDARD HCO3 26.7 MMOL/L; VENOUS TOTAL CO2 27.2 MMOL/L (24.0-28.0)
[2023-01-18 17:57] LABS: BASO % 0.1 % (0.0-1.0); HEMATOCRIT 34.1 % (42.0-52.0); HEMOGLOBIN 11.2 g/dl (13.5-17.5); LYMPH # 0.5 10^3/uL (1.5-5.0); LYMPH % 2.6 % (24.0-44.0); MEAN CORPUSCULAR HEMOGLOBIN 28.1 pg (27.0-33.0); MEAN CORPUSCULAR HGB CONC 32.8 g/dl (32.0-36.5); MEAN CORPUSCULAR VOLUME 85.7 fl (80.0-96.0); MONO # 1.3 10^3/uL (0.0-0.8); MONO % 7.3 % (2.0-8.0); NEUTROPHILS # 15.5 10^3/uL (1.5-8.5); NEUTROPHILS % 88.8 % (36.0-66.0); PLATELET COUNT, AUTOMATED 210 10^3/uL (150-450); RED BLOOD COUNT 3.98 10^6/uL (4.30-6.10); WHITE BLOOD COUNT 17.4 10^3/uL (4.0-10.0)
[2023-01-18] MEDS ORDERED: cefTRIAXone SOD 2 GM in D5W MINI-BAG PLUS 50 ML IV ONE (18:00)
[2023-01-18] MEDS ORDERED: AZITHROMYCIN INJ 500 MG, VIAL MATE ADAPTER 1 EACH in D5W 250 ML IV ONE (18:00)
[2023-01-18] MEDS ORDERED: IPRATROPIUM 0.5MG/ALBUTEROL 2.5MG INH SOL UD 3ML (DUONEB) NEB ONE (18:00)
[2023-01-18] MEDS ORDERED: methylPREDNISolone 125MG 2ML VIAL IV ONE (18:00)
[2023-01-18] MEDS ORDERED: ALBUTEROL SULFATE 2.5MG/0.5ML INH NEB SOLN NEB ONE (18:00)
[2023-01-18 18:21] LABS: INR 1.23; PROTHROMBIN TIME 15.2 SECONDS (12.5-14.5)
[2023-01-18 18:22] LABS: CPK CREATINE PHOSPHOKINASE 164 U/L (46-171)
[2023-01-18 18:23] LABS: ALBUMIN 3.4 G/DL (3.2-5.2); ALKALINE PHOSPHATASE 76 U/L (46-116); ALT/SGPT 16 U/L (7.0-40); AST/SGOT 13 U/L (<34); BILIRUBIN,DIRECT 0.2 MG/DL (<0.4); BILIRUBIN,TOTAL 0.5 MG/DL (0.3-1.2); BLOOD UREA NITROGEN 21 MG/DL (9-23); CALCIUM LEVEL 8.8 MG/DL (8.3-10.6); CARBON DIOXIDE LEVEL 24 MMOL/L (20-31); CHLORIDE LEVEL 101 MMOL/L (98-107); CK-MB VALUE MASS < 1.0 NG/ML (<3.6); CREATININE FOR GFR 0.95 MG/DL (0.70-1.30); GLOMERULAR FILTRATION RATE > 60.0 (>35); GLUCOSE, FASTING 116 MG/DL (74-106); POTASSIUM SERUM 4.1 MMOL/L (3.5-5.1); SODIUM LEVEL 135 MMOL/L (136-145); TOTAL PROTEIN 6.9 G/DL (5.7-8.2)
[2023-01-18 18:26] LABS: THYROXINE (T4) 6.3 UG/DL (4.5-10.9)
[2023-01-18 18:27] LABS: THYROID STIMULATING HORMONE 0.453 uIU/ML (0.55-4.78)
[2023-01-18] MEDS ORDERED: ACETAMINOPHEN 325 MG TAB PO ONE (19:10)
[2023-01-18 19:43] LABS: CK-MB VALUE MASS < 1.0 NG/ML (<3.6)
[2023-01-18] MEDS ORDERED: NS IV ONE (19:45)
[2023-01-18 19:48] LABS: CPK CREATINE PHOSPHOKINASE 199 U/L (46-171)
[2023-01-18] MEDS ORDERED: MED REC IN PROGRESS XX SCH (20:15)
[2023-01-18] MEDS ORDERED: BENZ200C70 PO (21:27)
[2023-01-18] MEDS ORDERED: TADA2.5T PO (21:27)
[2023-01-18] MEDS ORDERED: PRED20TA PO (21:27)
[2023-01-18] MEDS ORDERED: HOME MED LIST COMPLETE! XX SCH (21:30)
[2023-01-18] MEDS ORDERED: ACETAMINOPHEN TAB 650MG DOSE (2X325MG) PO PRN (22:05)
[2023-01-18] MEDS ORDERED: IPRATROPIUM 0.5MG/ALBUTEROL 2.5MG INH SOL UD 3ML (DUONEB) NEB PRN (22:10)
[2023-01-18] MEDS ORDERED: ALBUTEROL 90 MCG/ACT 8GM HFA INHALER INH PRN (22:10)
[2023-01-18] MEDS ORDERED: NS 500 ML IV SCH (22:10)
[2023-01-19] VITALS (7 sets, daily range): BP systolic 100–120; BP diastolic 49–64; TEMP 96.6–97.5; O2SAT 19–96
[2023-01-19] MEDS: ROSUVASTATIN 10 MG TAB (CRESTOR) PO SCH ×2 (01:18→20:18)
[2023-01-19] MEDS: GABAPENTIN 300 MG CAP PO SCH ×3 (01:18→20:18)
[2023-01-19] MEDS: PANTOPRAZOLE 40MG TAB (PROTONIX) PO SCH ×3 (01:18→20:18)
[2023-01-19] MEDS: MONTELUKAST 10 MG TAB PO SCH ×2 (01:19→20:18)
[2023-01-19] MEDS: ASPIRIN 81MG ENTERIC TABLET PO SCH ×2 (01:19→20:18)
[2023-01-19] MEDS: TAMSULOSIN 0.4 MG CAP PO SCH ×2 (01:20→20:18)
[2023-01-19] MEDS ORDERED: methylPREDNISolone 40MG 1ML VIAL IV SCH (02:00)
[2023-01-19] MEDS: IPRATROPIUM 0.5MG/ALBUTEROL 2.5MG INH SOL UD 3ML (DUONEB) NEB SCH ×4 (02:29→19:54)
[2023-01-19 05:18] LABS: HEMATOCRIT 30.6 % (42.0-52.0); MEAN CORPUSCULAR HEMOGLOBIN 28.3 pg (27.0-33.0); MEAN CORPUSCULAR HGB CONC 32.7 g/dl (32.0-36.5); MEAN CORPUSCULAR VOLUME 86.7 fl (80.0-96.0); PLATELET COUNT, AUTOMATED 170 10^3/uL (150-450); RED BLOOD COUNT 3.53 10^6/uL (4.30-6.10); WHITE BLOOD COUNT 13.7 10^3/uL (4.0-10.0)
[2023-01-19 05:43] LABS: BLOOD UREA NITROGEN 27 MG/DL (9-23); CALCIUM LEVEL 7.8 MG/DL (8.3-10.6); CARBON DIOXIDE LEVEL 23 MMOL/L (20-31); CHLORIDE LEVEL 104 MMOL/L (98-107); CREATININE FOR GFR 0.83 MG/DL (0.70-1.30); GLOMERULAR FILTRATION RATE > 60.0 (>35); GLUCOSE, FASTING 149 MG/DL (74-106); POTASSIUM SERUM 4.1 MMOL/L (3.5-5.1); SODIUM LEVEL 136 MMOL/L (136-145)
[2023-01-19] MEDS: CYANOCOBALAMIN 500 MCG TAB PO SCH (08:35)
[2023-01-19] MEDS: guaiFENesin 200 MG TAB PO SCH ×2 (08:35→20:18)
[2023-01-19] MEDS: allopurinoL 100 MG TAB PO SCH (08:35)
[2023-01-19] MEDS: CLOPIDOGREL 75 MG TAB PO SCH (08:36)
[2023-01-19] MEDS: HEPARIN SOD (PORCINE) 5000UNITS/ML 1ML VIAL/SYRINGE SC SCH ×2 (08:36→20:19)
[2023-01-19] MEDS: FLUTICASONE PROP 0.05% NASAL SPRAY 16 GM (FLONASE) NARES SCH (08:42)
[2023-01-19] MEDS ORDERED: LOSARTAN 50MG TABLET PO SCH (09:00)
[2023-01-19] MEDS: FUROSEMIDE 40 MG TAB PO SCH (09:00)
[2023-01-19] MEDS: SYMBICORT 160/4.5MCG INHALER 6GM INH SCH ×2 (09:24→19:54)
[2023-01-19] MEDS: TIOTROPIUM INHALER/CAPSULE (SPIRIVA) INH SCH (09:24)
[2023-01-19] MEDS: AZITHROMYCIN 250MG TABLET PO SCH (10:36)
[2023-01-19] MEDS: cefTRIAXone SOD 1 GM in D5W MINI-BAG PLUS 50 ML IV SCH ×2 (11:38→23:28)
[2023-01-19] MEDS: methylPREDNISolone 40MG 1ML VIAL IV SCH (14:26)
[2023-01-19] MEDS ORDERED: BISACODYL 5MG TAB PO PRN (15:40)
[2023-01-19] MEDS ORDERED: BISACODYL 10MG SUPP PR ONE (15:40)
[2023-01-19] MEDS: PRIMIDONE 50MG TAB PO SCH (20:18)
[2023-01-19] MEDS ORDERED: PREVNAR-20 VACCINE 0.5ML SYRINGE IM.IMMUN ONE (21:00)
[2023-01-20] MEDS: IPRATROPIUM 0.5MG/ALBUTEROL 2.5MG INH SOL UD 3ML (DUONEB) NEB SCH ×2 (01:10→09:24)
[2023-01-20] MEDS: methylPREDNISolone 40MG 1ML VIAL IV SCH (02:10)
[2023-01-20 03:28] VITALS: BP 125/63; TEMP 97.2; O2SAT 90
[2023-01-20 05:59] LABS: BASO % 0.1 % (0.0-1.0); HEMATOCRIT 30.3 % (42.0-52.0); HEMOGLOBIN 9.8 g/dl (13.5-17.5); LYMPH # 0.7 10^3/uL (1.5-5.0); LYMPH % 4.4 % (24.0-44.0); MEAN CORPUSCULAR HEMOGLOBIN 28.1 pg (27.0-33.0); MEAN CORPUSCULAR HGB CONC 32.3 g/dl (32.0-36.5); MEAN CORPUSCULAR VOLUME 86.8 fl (80.0-96.0); MONO % 6.4 % (2.0-8.0); NEUTROPHILS # 13.2 10^3/uL (1.5-8.5); NEUTROPHILS % 88.6 % (36.0-66.0); PLATELET COUNT, AUTOMATED 197 10^3/uL (150-450); RED BLOOD COUNT 3.49 10^6/uL (4.30-6.10); WHITE BLOOD COUNT 14.9 10^3/uL (4.0-10.0)
[2023-01-20 06:26] LABS: BLOOD UREA NITROGEN 28 MG/DL (9-23); CALCIUM LEVEL 8.4 MG/DL (8.3-10.6); CARBON DIOXIDE LEVEL 25 MMOL/L (20-31); CHLORIDE LEVEL 106 MMOL/L (98-107); CREATININE FOR GFR 0.74 MG/DL (0.70-1.30); GLOMERULAR FILTRATION RATE > 60.0 (>35); GLUCOSE, FASTING 114 MG/DL (74-106); POTASSIUM SERUM 3.9 MMOL/L (3.5-5.1); SODIUM LEVEL 141 MMOL/L (136-145)
[2023-01-20 07:00] VITALS: O2SAT 96
[2023-01-20 07:37] VITALS: BP 149/71; TEMP 97.3; O2SAT 94
[2023-01-20 08:00] VITALS: O2SAT 90
[2023-01-20] MEDS: guaiFENesin 200 MG TAB PO SCH (08:59)
[2023-01-20] MEDS: AZITHROMYCIN 250MG TABLET PO SCH (08:59)
[2023-01-20] MEDS: GABAPENTIN 300 MG CAP PO SCH (08:59)
[2023-01-20] MEDS: HEPARIN SOD (PORCINE) 5000UNITS/ML 1ML VIAL/SYRINGE SC SCH (08:59)
[2023-01-20 09:00] VITALS: O2SAT 87
[2023-01-20] MEDS: PANTOPRAZOLE 40MG TAB (PROTONIX) PO SCH (09:00)
[2023-01-20] MEDS: CYANOCOBALAMIN 500 MCG TAB PO SCH (09:00)
[2023-01-20] MEDS: CLOPIDOGREL 75 MG TAB PO SCH (09:00)
[2023-01-20] MEDS: FLUTICASONE PROP 0.05% NASAL SPRAY 16 GM (FLONASE) NARES SCH (09:00)
[2023-01-20] MEDS: FUROSEMIDE 40 MG TAB PO SCH (09:00)
[2023-01-20] MEDS: allopurinoL 100 MG TAB PO SCH (09:00)
[2023-01-20] MEDS: TIOTROPIUM INHALER/CAPSULE (SPIRIVA) INH SCH (09:24)
[2023-01-20] MEDS: SYMBICORT 160/4.5MCG INHALER 6GM INH SCH (09:24)
[2023-01-20] MEDS ORDERED: PREVNAR-20 VACCINE 0.5ML SYRINGE IM.IMMUN ONE (09:35)
[2023-01-20] MEDS ORDERED: PRED20TA PO ×2 (09:37→09:39)
[2023-01-20] MEDS ORDERED: MUCI600T31 PO (09:37)
[2023-01-20] MEDS ORDERED: AMOX875T2 PO (09:37)
[2023-01-20] MEDS ORDERED: AZIT-12 PO (09:37)
[2023-01-20] MEDS ORDERED: IPRA0.00 INH (09:39)
[2023-01-20 10:00] VITALS: O2SAT 86
[2023-01-20] MEDS ORDERED: FLUZONE HIGH DOSE(65YR UP)QUAD/PF 240MCG/0.7ML SYRINGE IM.IMMUN ONE (11:00)
[2023-01-21] MEDS ORDERED: NITR0.4S14 PO (12:54)
== END 2023-01-20 11:23 | disposition home health service (06) | DRG 140 ==
LOC: M ED 16:26 → M ED INP 21:08 → ENRESERV 23:56 → M PCU 01-19 01:49
PROVIDERS: ADMIT Internal Medicine; ATTEND Internal Medicine
DX: J44.1 Chronic obstructive pulmonary disease with (acute) exacerbation (principal); J18.9 Pneumonia, unspecified organism; I27.20 Pulmonary hypertension, unspecified; I27.81 Cor pulmonale (chronic); I95.9 Hypotension, unspecified; I11.0 Hypertensive heart disease with heart failure; I50.32 Chronic diastolic (congestive) heart failure; G62.9 Polyneuropathy, unspecified; B97.4 Respiratory syncytial virus as the cause of diseases classified elsewhere; I25.10 Atherosclerotic heart disease of native coronary artery without angina pectoris; G47.33 Obstructive sleep apnea (adult) (pediatric); I08.0 Rheumatic disorders of both mitral and aortic valves; M10.9 Gout, unspecified; E66.9 Obesity, unspecified; M54.50 Low back pain, unspecified; G89.29 Other chronic pain; E78.00 Pure hypercholesterolemia, unspecified; I25.2 Old myocardial infarction; R25.1 Tremor, unspecified; N40.0 Benign prostatic hyperplasia without lower urinary tract symptoms; F17.290 Nicotine dependence, other tobacco product, uncomplicated; Z95.5 Presence of coronary angioplasty implant and graft; Z86.73 Personal history of transient ischemic attack (TIA), and cerebral infarction without residual deficits; Z90.49 Acquired absence of other specified parts of digestive tract; Z98.49 Cataract extraction status, unspecified eye; Z79.82 Long term (current) use of aspirin; Z79.52 Long term (current) use of systemic steroids; Z79.899 Other long term (current) drug therapy; Z91.048 Other nonmedicinal substance allergy status; Z20.822 Contact with and (suspected) exposure to COVID-19; J44.0 Chronic obstructive pulmonary disease with (acute) lower respiratory infection; J30.9 Allergic rhinitis, unspecified

== ENCOUNTER → 2023-01-29 | Outpatient (CLI) | payer BC, MEDICARE ==
[~2023-01-29] MED LIST changes: +AMOX875T2 PO; +AZIT-12 PO; +FURO40TA2 PO; +IPRA0.00 INH; +NITR0.4S14 PO; +TADA2.5T PO
== END ==
LOC: M ADAMS 11:28
PROVIDERS: ATTEND Physician Assistant
DX: J44.1 Chronic obstructive pulmonary disease with (acute) exacerbation (principal)

== ENCOUNTER 2023-02-04 06:41 | Day surgery (SDC) | payer BC, MEDICARE ==
[~2023-02-04] VITALS: Ht 180.3 cm; Wt 96.1 kg
[~2023-02-04 06:41] MED LIST changes: +CEFD1CAP9 PO; -CEFD300C42 PO; -FLUT50SP17; -FLUT50SP17 NARES; +FLUTISP; +FLUTISP NARES; +LIDOCAINE W/EPINEPHRINE 1% 20ML VIAL XX ONE; +SODIUM BICARBONATE 8.4% INJ 50MEQ 50ML VIAL XX ONE
[2023-02-04] MEDS ORDERED: BACITRACIN OINTMENT 30GM TUBE As Ordered ONE (07:20)
[2023-02-04 08:33] VITALS: BP 164/75; TEMP 97.9; O2SAT 95
== END 2023-02-04 08:34 | disposition home or self-care (01) ==
LOC: M SDC 06:41
PROVIDERS: ATTEND Orthopaedic Surgery Hand Surgery
DX: G56.01 Carpal tunnel syndrome, right upper limb (principal); I10 Essential (primary) hypertension; I25.10 Atherosclerotic heart disease of native coronary artery without angina pectoris; I25.2 Old myocardial infarction; E78.5 Hyperlipidemia, unspecified; G47.33 Obstructive sleep apnea (adult) (pediatric); K21.9 Gastro-esophageal reflux disease without esophagitis; Z79.899 Other long term (current) drug therapy; Z79.82 Long term (current) use of aspirin; Z86.73 Personal history of transient ischemic attack (TIA), and cerebral infarction without residual deficits; F17.210 Nicotine dependence, cigarettes, uncomplicated; F17.290 Nicotine dependence, other tobacco product, uncomplicated

== ENCOUNTER → 2023-02-05 | Outpatient (CLI) | payer BC, MEDICARE ==
[~2023-02-05] MED LIST changes: +ISOVUE-370 76% 100ML VIAL As Ordered ONE; -LIDOCAINE W/EPINEPHRINE 1% 20ML VIAL XX ONE; -SODIUM BICARBONATE 8.4% INJ 50MEQ 50ML VIAL XX ONE
== END ==
LOC: M RAD 09:53
PROVIDERS: ATTEND Radiology Vascular & Interventional Radiology
DX: I71.42 Juxtarenal abdominal aortic aneurysm, without rupture (principal); D35.01 Benign neoplasm of right adrenal gland; N28.1 Cyst of kidney, acquired; Z98.890 Other specified postprocedural states
CPT/HCPCS: 74174; Q9967

== ENCOUNTER → 2023-02-14 | Outpatient (REF) | payer BC, MEDICARE ==
[~2023-02-14] MED LIST changes: -ISOVUE-370 76% 100ML VIAL As Ordered ONE
[2023-02-14 17:12] LABS: BLOOD UREA NITROGEN 22 MG/DL (9-23); CREATININE FOR GFR 0.76 MG/DL (0.70-1.30); GLOMERULAR FILTRATION RATE > 60.0 (>35)
== END ==
LOC: M LABDRWAD 15:55
PROVIDERS: ATTEND Radiology Vascular & Interventional Radiology
DX: I71.40 Abdominal aortic aneurysm, without rupture, unspecified (principal)

== ENCOUNTER 2023-03-29 07:04 | Day surgery (SDC) | payer BC, MEDICARE ==
[~2023-03-29] VITALS: Ht 180.3 cm; Wt 97.9 kg
[~2023-03-29 07:04] MED LIST changes: +AZEL23SP NARES; +FURO20TA2 PO; +LIDOCAINE W/EPINEPHRINE 1% 20ML VIAL XX ONE; +SODIUM BICARBONATE 8.4% INJ 50MEQ 50ML VIAL XX ONE
[2023-03-29 10:06] VITALS: BP 130/63; TEMP 97.3; O2SAT 96
== END 2023-03-29 10:39 | disposition home or self-care (01) ==
LOC: M SDC 07:04
PROVIDERS: ATTEND Orthopaedic Surgery Hand Surgery
DX: G56.02 Carpal tunnel syndrome, left upper limb (principal); I10 Essential (primary) hypertension; I25.10 Atherosclerotic heart disease of native coronary artery without angina pectoris; J44.9 Chronic obstructive pulmonary disease, unspecified; G47.30 Sleep apnea, unspecified; I25.2 Old myocardial infarction; E78.00 Pure hypercholesterolemia, unspecified; Z95.1 Presence of aortocoronary bypass graft; Z79.899 Other long term (current) drug therapy; Z79.82 Long term (current) use of aspirin; Z79.02 Long term (current) use of antithrombotics/antiplatelets; Z79.51 Long term (current) use of inhaled steroids; Z86.73 Personal history of transient ischemic attack (TIA), and cerebral infarction without residual deficits; Z87.891 Personal history of nicotine dependence

== ENCOUNTER → 2023-05-08 | Outpatient (REF) | payer BC, MEDICARE ==
[~2023-05-08] MED LIST changes: -LIDOCAINE W/EPINEPHRINE 1% 20ML VIAL XX ONE; -SODIUM BICARBONATE 8.4% INJ 50MEQ 50ML VIAL XX ONE
[2023-05-08 14:41] LABS: BASO % 0.6 % (0.0-1.0); EOS # 0.1 10^3/uL (0.0-0.5); EOS % 1.4 % (0.0-3.0); HEMATOCRIT 33.1 % (42.0-52.0); HEMOGLOBIN 10.5 g/dl (13.5-17.5); LYMPH # 0.9 10^3/uL (1.5-5.0); LYMPH % 13.4 % (24.0-44.0); MEAN CORPUSCULAR HEMOGLOBIN 28.1 pg (27.0-33.0); MEAN CORPUSCULAR HGB CONC 31.7 g/dl (32.0-36.5); MEAN CORPUSCULAR VOLUME 88.5 fl (80.0-96.0); MONO # 0.9 10^3/uL (0.0-0.8); MONO % 13.1 % (2.0-8.0); NEUTROPHILS # 4.9 10^3/uL (1.5-8.5); NEUTROPHILS % 71.2 % (36.0-66.0); PLATELET COUNT, AUTOMATED 205 10^3/uL (150-450); RED BLOOD COUNT 3.74 10^6/uL (4.30-6.10); WHITE BLOOD COUNT 6.9 10^3/uL (4.0-10.0)
[2023-05-08 15:12] LABS: ALBUMIN 3.3 G/DL (3.2-5.2); ALKALINE PHOSPHATASE 69 U/L (46-116); ALT/SGPT 15 U/L (7.0-40); AST/SGOT 15 U/L (<34); BILIRUBIN,TOTAL 0.6 MG/DL (0.3-1.2); BLOOD UREA NITROGEN 20 MG/DL (9-23); CALCIUM LEVEL 8.6 MG/DL (8.3-10.6); CARBON DIOXIDE LEVEL 30 MMOL/L (20-31); CHLORIDE LEVEL 106 MMOL/L (98-107); CREATININE FOR GFR 0.85 MG/DL (0.70-1.30); GLOMERULAR FILTRATION RATE > 60.0 (>35); GLUCOSE, FASTING 56 MG/DL (74-106); SODIUM LEVEL 141 MMOL/L (136-145); TOTAL PROTEIN 6.3 G/DL (5.7-8.2)
[2023-05-08 15:14] LABS: FREE T4 1.08 NG/DL (0.89-1.76)
[2023-05-08 15:17] LABS: THYROID STIMULATING HORMONE 1.154 uIU/ML (0.55-4.78)
== END ==
LOC: M SFHCADAM 10:24
PROVIDERS: ATTEND Physician Assistant
DX: R07.89 Other chest pain (principal)

== ENCOUNTER → 2023-05-15 | Outpatient (REF) | payer BC, MEDICARE ==
[2023-05-15 15:53] LABS: BLOOD UREA NITROGEN 20 MG/DL (9-23); CALCIUM LEVEL 8.1 MG/DL (8.3-10.6); CARBON DIOXIDE LEVEL 32 MMOL/L (20-31); CHLORIDE LEVEL 105 MMOL/L (98-107); GLOMERULAR FILTRATION RATE > 60.0 (>35); GLUCOSE, FASTING 102 MG/DL (74-106); POTASSIUM SERUM 3.8 MMOL/L (3.5-5.1); SODIUM LEVEL 141 MMOL/L (136-145)
== END ==
LOC: M SFHCADAM 08:19
PROVIDERS: ATTEND Physician Assistant
DX: E16.2 Hypoglycemia, unspecified (principal)

== ENCOUNTER 2023-07-18 08:32 | Emergency (ER) | payer BC, MEDICARE ==
[~2023-07-18] VITALS: Ht 180.3 cm; Wt 97.9 kg
[~2023-07-18 08:32] MED LIST changes: +DOXY-323 PO; -DOXY-443 PO; -ROSU40TA4 PO; +ROSU40TA63 PO
[2023-07-18 09:30] LABS: BASO % 0.1 % (0.0-1.0); HEMOGLOBIN 11.3 g/dl (13.5-17.5); LYMPH # 0.4 10^3/uL (1.5-5.0); LYMPH % 2.8 % (24.0-44.0); MEAN CORPUSCULAR HGB CONC 33.2 g/dl (32.0-36.5); MEAN CORPUSCULAR VOLUME 84.4 fl (80.0-96.0); MONO # 1.4 10^3/uL (0.0-0.8); MONO % 9.6 % (2.0-8.0); NEUTROPHILS # 12.8 10^3/uL (1.5-8.5); NEUTROPHILS % 86.6 % (36.0-66.0); PLATELET COUNT, AUTOMATED 212 10^3/uL (150-450); RED BLOOD COUNT 4.03 10^6/uL (4.30-6.10); WHITE BLOOD COUNT 14.8 10^3/uL (4.0-10.0)
[2023-07-18 09:58] LABS: ALBUMIN 3.2 G/DL (3.2-5.2); ALKALINE PHOSPHATASE 68 U/L (46-116); ALT/SGPT 13 U/L (7.0-40); AST/SGOT 33 U/L (<34); BILIRUBIN,DIRECT 0.3 MG/DL (<0.4); BILIRUBIN,TOTAL 0.8 MG/DL (0.3-1.2); BLOOD UREA NITROGEN 19 MG/DL (9-23); CALCIUM LEVEL 9.2 MG/DL (8.3-10.6); CARBON DIOXIDE LEVEL 26 MMOL/L (20-31); CHLORIDE LEVEL 104 MMOL/L (98-107); CREATININE FOR GFR 0.71 MG/DL (0.70-1.30); GLOMERULAR FILTRATION RATE > 60.0 (>35); GLUCOSE, FASTING 138 MG/DL (74-106); LIPASE 19 U/L (12-53); POTASSIUM SERUM 4.8 MMOL/L (3.5-5.1); SODIUM LEVEL 139 MMOL/L (136-145); TOTAL PROTEIN 6.7 G/DL (5.7-8.2)
[2023-07-18 10:08] LABS: APPEARANCE, URINE HAZY (CLEAR); BACTERIA, URINE AUTO 1+ (NEGATIVE); BILIRUBIN, URINE AUTO NEGATIVE (NEGATIVE); BLOOD, URINE BLOOD NEGATIVE (NEGATIVE); COLOR, URINE YELLOW (YELLOW); GLUCOSE, URINE (UA) AUTO NEGATIVE (NEGATIVE); KETONE, URINE AUTO NEGATIVE (NEGATIVE); LEUKOCYTE ESTERASE, URINE AUTO NEGATIVE (NEGATIVE); MUCUS, URINE SMALL (NEGATIVE); NITRITE, URINE AUTO NEGATIVE (NEGATIVE); PROTEIN, URINE AUTO 2+ mg/dL (NEGATIVE); RBC, URINE AUTO 3 /HPF (0-3); SPECIFIC GRAVITY URINE AUTO 1.024 (1.002-1.035); SQUAMOUS EPITHELIAL CELL UR AU 0 /HPF (0-6); WBC, URINE AUTO 4 /HPF (0-3)
[2023-07-18] MEDS: NS 1,000 ML IV SCH (12:18)
[2023-07-18] MEDS: PIPERACILLIN/TAZOBACTAM SOD 3.375 GM in D5W MINI-BAG PLUS 50 ML IV ONE (12:18)
[2023-07-18 13:00] VITALS: BP 140/66; TEMP 98; O2SAT 92
== END 2023-07-18 13:25 | disposition short-term general hospital (02) ==
LOC: M ED 08:32
DX: I71.9 Aortic aneurysm of unspecified site, without rupture (principal); Z95.1 Presence of aortocoronary bypass graft; I25.2 Old myocardial infarction; E78.00 Pure hypercholesterolemia, unspecified; J44.9 Chronic obstructive pulmonary disease, unspecified; Z87.01 Personal history of pneumonia (recurrent); G47.30 Sleep apnea, unspecified; K21.9 Gastro-esophageal reflux disease without esophagitis; Z87.442 Personal history of urinary calculi; N40.0 Benign prostatic hyperplasia without lower urinary tract symptoms; Z79.82 Long term (current) use of aspirin; Z79.899 Other long term (current) drug therapy; Z79.02 Long term (current) use of antithrombotics/antiplatelets
CPT/HCPCS: 74176; 80048; 80076; 81001; 83690; 85025; 87086; 93041; 96374; 99284; J2543

== ENCOUNTER 2023-09-11 18:10 | Inpatient (IN) | payer BC, MEDICARE ==
[~2023-09-11] VITALS: Ht 180.3 cm; Wt 86.5 kg
[~2023-09-11 18:10] MED LIST changes: -AZEL205.5; -ELIQ5TAB PO; -MAGN400T2 PO; -METO25TA4 PO; -POTA-151 PO; -SPIR-10 PO
[2023-09-11 20:00] LABS: BASO % 0.3 % (0.0-1.0); EOS % 0.2 % (0.0-3.0); HEMATOCRIT 29.5 % (42.0-52.0); HEMOGLOBIN 9.5 g/dl (13.5-17.5); LYMPH # 0.9 10^3/uL (1.5-5.0); LYMPH % 8.4 % (24.0-44.0); MEAN CORPUSCULAR HGB CONC 32.2 g/dl (32.0-36.5); MEAN CORPUSCULAR VOLUME 89.9 fl (80.0-96.0); MONO # 1.1 10^3/uL (0.0-0.8); NEUTROPHILS # 8.3 10^3/uL (1.5-8.5); NEUTROPHILS % 79.2 % (36.0-66.0); PLATELET COUNT, AUTOMATED 270 10^3/uL (150-450); RED BLOOD COUNT 3.28 10^6/uL (4.30-6.10); WHITE BLOOD COUNT 10.4 10^3/uL (4.0-10.0)
[2023-09-11 20:35] LABS: BLOOD UREA NITROGEN 23 MG/DL (9-23); CALCIUM LEVEL 6.3 MG/DL (8.3-10.6); CARBON DIOXIDE LEVEL 26 MMOL/L (20-31); CHLORIDE LEVEL 103 MMOL/L (98-107); CREATININE FOR GFR 1.12 MG/DL (0.70-1.30); GLOMERULAR FILTRATION RATE > 60.0 (>35); GLUCOSE, FASTING 102 MG/DL (74-106); MAGNESIUM LEVEL 0.6 MG/DL (1.8-2.4); PHOSPHORUS LEVEL 1.7 MG/DL (2.4-5.1); POTASSIUM SERUM 4.4 MMOL/L (3.5-5.1); SODIUM LEVEL 135 MMOL/L (136-145)
[2023-09-11] MEDS: MAG SULF 1GM/100ML (MAG RUN) 1 GM in IV 1 EA IV ONE ×2 (20:58→21:45)
[2023-09-11] MEDS ORDERED: ACETAMINOPHEN TAB 650MG DOSE (2X325MG) PO PRN (21:15)
[2023-09-11] MEDS ORDERED: MOM 30ML SUSPENSION UDC PO PRN (21:15)
[2023-09-11] MEDS: NEUTRA-PHOS 1.5 GM PACKET PO ONE (21:44)
[2023-09-11] MEDS ORDERED: AZEL205.5 (23:06)
[2023-09-11] MEDS ORDERED: METO25TA4 PO (23:06)
[2023-09-11] MEDS ORDERED: ELIQ5TAB PO (23:06)
[2023-09-11] MEDS ORDERED: POTA-151 PO (23:06)
[2023-09-11] MEDS ORDERED: SPIR-10 PO (23:06)
[2023-09-11] MEDS ORDERED: IPRA0.00 INH (23:06)
[2023-09-11] MEDS ORDERED: HOME MED LIST COMPLETE! XX SCH (23:10)
[2023-09-12] MEDS ORDERED: IPRATROPIUM 0.5MG/ALBUTEROL 2.5MG INH SOL UD 3ML (DUONEB) INH PRN (04:45)
[2023-09-12] MEDS ORDERED: ALBUTEROL 90 MCG/ACT 8GM HFA INHALER INH PRN (04:45)
[2023-09-12] MEDS ORDERED: NITROGLYCERIN 0.4MG SUBL TABLET SL PRN (04:45)
[2023-09-12 06:08] LABS: HEMOGLOBIN 8.5 g/dl (13.5-17.5); MEAN CORPUSCULAR HEMOGLOBIN 28.8 pg (27.0-33.0); MEAN CORPUSCULAR HGB CONC 32.7 g/dl (32.0-36.5); MEAN CORPUSCULAR VOLUME 88.1 fl (80.0-96.0); PLATELET COUNT, AUTOMATED 246 10^3/uL (150-450); RED BLOOD COUNT 2.95 10^6/uL (4.30-6.10); WHITE BLOOD COUNT 8.8 10^3/uL (4.0-10.0)
[2023-09-12 06:39] LABS: BLOOD UREA NITROGEN 20 MG/DL (9-23); CALCIUM LEVEL 6.1 MG/DL (8.3-10.6); CARBON DIOXIDE LEVEL 25 MMOL/L (20-31); CHLORIDE LEVEL 104 MMOL/L (98-107); CREATININE FOR GFR 1.05 MG/DL (0.70-1.30); GLOMERULAR FILTRATION RATE > 60.0 (>35); GLUCOSE, FASTING 99 MG/DL (74-106); POTASSIUM SERUM 4.1 MMOL/L (3.5-5.1); SODIUM LEVEL 137 MMOL/L (136-145)
[2023-09-12 07:51] LABS: PHOSPHORUS LEVEL 2.3 MG/DL (2.4-5.1)
[2023-09-12] MEDS: APIXABAN 5 MG TAB (ELIQUIS) PO SCH (08:46)
[2023-09-12] MEDS: MAG SULF 1GM/100ML (MAG RUN) 1 GM in IV 1 EA IV SCH (08:46)
[2023-09-12] MEDS: POTASSIUM CHLORIDE 10MEQ SR TABLET PO SCH (08:46)
[2023-09-12] MEDS: PANTOPRAZOLE 40MG TAB (PROTONIX) PO SCH (08:46)
[2023-09-12] MEDS: GABAPENTIN 300 MG CAP PO SCH (08:46)
[2023-09-12] MEDS: METOPROLOL TART 25 MG TABLET PO SCH (08:46)
[2023-09-12] MEDS: CLOPIDOGREL 75 MG TAB PO SCH (08:46)
[2023-09-12] MEDS ORDERED: MAGNESIUM OXIDE 400MG TAB (MAG-OX) PO SCH (09:00)
[2023-09-12] MEDS: FLUTICASONE PROP 0.05% NASAL SPRAY 16 GM (FLONASE) NARES SCH (09:00)
[2023-09-12] MEDS ORDERED: ENOXAPARIN 40MG/0.4ML SYRINGE (J1650 PER 10MG) SC SCH (09:00)
[2023-09-12] MEDS: allopurinoL 100 MG TAB PO SCH (10:30)
[2023-09-12] MEDS: FUROSEMIDE 40 MG TAB PO SCH (10:30)
[2023-09-12] MEDS: CYANOCOBALAMIN 500 MCG TAB PO SCH (10:30)
[2023-09-12] MEDS: SPIRONOLACTONE 12.5MG PER 1/2 TABLET PO SCH (10:30)
[2023-09-12] MEDS: LOSARTAN 50MG TABLET PO SCH (10:30)
[2023-09-12] MEDS: NEUTRA-PHOS 1.5 GM PACKET PO ONE (10:31)
[2023-09-12 13:20] VITALS: BP 151/83; TEMP 97.9; O2SAT 98
[2023-09-12 14:05] LABS: IRON (FE) 9 UG/DL (65-175); PERCENT SATURATION 4.7 % (19.7-50.0); TOTAL IRON BINDING CAPACITY 190 UG/DL (250-425)
[2023-09-12 14:11] LABS: BLOOD UREA NITROGEN 18 MG/DL (9-23); CALCIUM LEVEL 6.4 MG/DL (8.3-10.6); CARBON DIOXIDE LEVEL 26 MMOL/L (20-31); CHLORIDE LEVEL 102 MMOL/L (98-107); CREATININE FOR GFR 1.02 MG/DL (0.70-1.30); FERRITIN 716.4 NG/ML (10.5-307.3); FOLATE 11.48 NG/ML (>5.4); GLOMERULAR FILTRATION RATE > 60.0 (>35); GLUCOSE, FASTING 96 MG/DL (74-106); MAGNESIUM LEVEL 1.6 MG/DL (1.8-2.4); PHOSPHORUS LEVEL 2.7 MG/DL (2.4-5.1); POTASSIUM SERUM 5.4 MMOL/L (3.5-5.1); SODIUM LEVEL 135 MMOL/L (136-145); VITAMIN B12 LEVEL 637 PG/ML (211-911)
[2023-09-12] MEDS: MAG SULF 1GM/100ML (MAG RUN) 1 GM in IV 1 EA IV ONE (15:24)
[2023-09-12 19:46] LABS: MAGNESIUM LEVEL 1.6 MG/DL (1.8-2.4); PHOSPHORUS LEVEL 2.1 MG/DL (2.4-5.1)
[2023-09-12] MEDS: TAMSULOSIN 0.4 MG CAP PO SCH (20:19)
[2023-09-12] MEDS: PRIMIDONE 50MG TAB PO SCH (20:19)
[2023-09-12] MEDS: ROSUVASTATIN 10 MG TAB (CRESTOR) PO SCH (20:20)
[2023-09-12] MEDS: MONTELUKAST 10 MG TAB PO SCH (20:20)
[2023-09-12 20:28] VITALS: BP 146/64; TEMP 98.1; O2SAT 98
[2023-09-12] MEDS ORDERED: ASPIRIN 81MG ENTERIC TABLET PO SCH (21:00)
[2023-09-12 22:07] LABS: MAGNESIUM LEVEL 1.5 MG/DL (1.8-2.4)
[2023-09-13 04:00] VITALS: BP 103/56; TEMP 97.7; O2SAT 96
[2023-09-13 04:45] LABS: MAGNESIUM LEVEL 1.6 MG/DL (1.8-2.4); PHOSPHORUS LEVEL 2.6 MG/DL (2.4-5.1)
[2023-09-13] MEDS: MAGNESIUM OXIDE 400MG TAB (MAG-OX) PO SCH (08:47)
[2023-09-13] MEDS: MAG SULF 1GM/100ML (MAG RUN) 1 GM in IV 1 EA IV ONE ×2 (09:34→15:52)
[2023-09-13 12:00] VITALS: BP 106/68; TEMP 97.7; O2SAT 94
[2023-09-13 14:06] LABS: CALCIUM LEVEL 6.8 MG/DL (8.3-10.6); CREATININE FOR GFR 1.25 MG/DL (0.70-1.30); GLOMERULAR FILTRATION RATE 58.9 (>35); MAGNESIUM LEVEL 1.7 MG/DL (1.8-2.4); POTASSIUM SERUM 4.2 MMOL/L (3.5-5.1)
[2023-09-13 16:49] LABS: BASO % 0.2 % (0.0-1.0); EOS % 0.2 % (0.0-3.0); HEMATOCRIT 27.3 % (42.0-52.0); HEMOGLOBIN 9.1 g/dl (13.5-17.5); LYMPH # 0.7 10^3/uL (1.5-5.0); LYMPH % 5.7 % (24.0-44.0); MEAN CORPUSCULAR HEMOGLOBIN 29.4 pg (27.0-33.0); MEAN CORPUSCULAR HGB CONC 33.3 g/dl (32.0-36.5); MEAN CORPUSCULAR VOLUME 88.3 fl (80.0-96.0); MONO % 7.9 % (2.0-8.0); NEUTROPHILS # 10.7 10^3/uL (1.5-8.5); NEUTROPHILS % 85.3 % (36.0-66.0); PLATELET COUNT, AUTOMATED 269 10^3/uL (150-450); RED BLOOD COUNT 3.09 10^6/uL (4.30-6.10); WHITE BLOOD COUNT 12.5 10^3/uL (4.0-10.0)
[2023-09-13 20:00] VITALS: BP 114/51; TEMP 97.7; O2SAT 95
[2023-09-14 04:00] VITALS: BP 105/52; TEMP 97.5; O2SAT 95
[2023-09-14 06:15] LABS: BASO % 0.3 % (0.0-1.0); EOS % 0.1 % (0.0-3.0); HEMOGLOBIN 8.1 g/dl (13.5-17.5); LYMPH # 0.7 10^3/uL (1.5-5.0); LYMPH % 5.8 % (24.0-44.0); MEAN CORPUSCULAR HEMOGLOBIN 28.4 pg (27.0-33.0); MEAN CORPUSCULAR HGB CONC 32.4 g/dl (32.0-36.5); MEAN CORPUSCULAR VOLUME 87.7 fl (80.0-96.0); MONO # 0.9 10^3/uL (0.0-0.8); MONO % 7.6 % (2.0-8.0); NEUTROPHILS # 10.1 10^3/uL (1.5-8.5); NEUTROPHILS % 85.3 % (36.0-66.0); PLATELET COUNT, AUTOMATED 258 10^3/uL (150-450); RED BLOOD COUNT 2.85 10^6/uL (4.30-6.10); WHITE BLOOD COUNT 11.9 10^3/uL (4.0-10.0)
[2023-09-14 06:42] LABS: CALCIUM LEVEL 7.3 MG/DL (8.3-10.6); CREATININE FOR GFR 1.32 MG/DL (0.70-1.30); GLOMERULAR FILTRATION RATE 55.3 (>35); MAGNESIUM LEVEL 1.8 MG/DL (1.8-2.4); PHOSPHORUS LEVEL 2.6 MG/DL (2.4-5.1)
[2023-09-14 12:00] VITALS: BP 102/48; TEMP 97.9; O2SAT 94
[2023-09-14 20:00] VITALS: BP 127/52; TEMP 98.8; O2SAT 96
[2023-09-15 04:00] VITALS: BP 118/54; TEMP 98.1; O2SAT 95
[2023-09-15 06:53] LABS: HEMATOCRIT 24.3 % (42.0-52.0); HEMOGLOBIN 8.1 g/dl (13.5-17.5); MEAN CORPUSCULAR HGB CONC 33.3 g/dl (32.0-36.5); MEAN CORPUSCULAR VOLUME 87.1 fl (80.0-96.0); PLATELET COUNT, AUTOMATED 253 10^3/uL (150-450); RED BLOOD COUNT 2.79 10^6/uL (4.30-6.10); WHITE BLOOD COUNT 10.3 10^3/uL (4.0-10.0)
[2023-09-15 07:21] LABS: CALCIUM LEVEL 7.3 MG/DL (8.3-10.6); CREATININE FOR GFR 1.43 MG/DL (0.70-1.30); GLOMERULAR FILTRATION RATE 50.4 (>35); MAGNESIUM LEVEL 1.6 MG/DL (1.8-2.4); PHOSPHORUS LEVEL 2.5 MG/DL (2.4-5.1)
[2023-09-15 12:00] VITALS: BP 130/65; TEMP 98.2; O2SAT 94
[2023-09-15] MEDS: LR 1,000 ML IV SCH (17:14)
[2023-09-15 20:00] VITALS: BP 132/63; TEMP 97.7; O2SAT 95
[2023-09-16 04:11] VITALS: BP 139/78; TEMP 98.2; O2SAT 90; O2SAT 93
[2023-09-16 07:29] LABS: HEMOGLOBIN 8.3 g/dl (13.5-17.5); MEAN CORPUSCULAR HEMOGLOBIN 28.6 pg (27.0-33.0); MEAN CORPUSCULAR HGB CONC 33.2 g/dl (32.0-36.5); MEAN CORPUSCULAR VOLUME 86.2 fl (80.0-96.0); PLATELET COUNT, AUTOMATED 259 10^3/uL (150-450); WHITE BLOOD COUNT 11.2 10^3/uL (4.0-10.0)
[2023-09-16 07:45] LABS: CALCIUM LEVEL 7.4 MG/DL (8.3-10.6); CREATININE FOR GFR 1.48 MG/DL (0.70-1.30); GLOMERULAR FILTRATION RATE 48.4 (>35); MAGNESIUM LEVEL 1.5 MG/DL (1.8-2.4); POTASSIUM SERUM 4.3 MMOL/L (3.5-5.1)
[2023-09-16 08:18] VITALS: BP 107/61
[2023-09-16] MEDS ORDERED: MAGN400T2 PO (10:32)
== END 2023-09-16 12:01 | disposition home health service (06) | DRG 425 ==
LOC: M ED 18:10 → M ED INP 21:12 → OBSVTOIN 09-12 11:24 → M MSPAV 09-12 13:23
PROVIDERS: ADMIT Internal Medicine; ATTEND Internal Medicine
DX: E83.42 Hypomagnesemia (principal); J84.9 Interstitial pulmonary disease, unspecified; I27.20 Pulmonary hypertension, unspecified; I11.0 Hypertensive heart disease with heart failure; I50.32 Chronic diastolic (congestive) heart failure; G62.9 Polyneuropathy, unspecified; I48.0 Paroxysmal atrial fibrillation; E87.8 Other disorders of electrolyte and fluid balance, not elsewhere classified; I08.0 Rheumatic disorders of both mitral and aortic valves; E78.5 Hyperlipidemia, unspecified; M10.9 Gout, unspecified; D64.9 Anemia, unspecified; I25.10 Atherosclerotic heart disease of native coronary artery without angina pectoris; G47.33 Obstructive sleep apnea (adult) (pediatric); K21.9 Gastro-esophageal reflux disease without esophagitis; E66.9 Obesity, unspecified; M54.50 Low back pain, unspecified; F17.210 Nicotine dependence, cigarettes, uncomplicated; G89.29 Other chronic pain; Z79.82 Long term (current) use of aspirin; Z79.01 Long term (current) use of anticoagulants; Z79.899 Other long term (current) drug therapy; Z91.048 Other nonmedicinal substance allergy status; Z95.5 Presence of coronary angioplasty implant and graft; Z86.73 Personal history of transient ischemic attack (TIA), and cerebral infarction without residual deficits; E83.39 Other disorders of phosphorus metabolism

== ENCOUNTER → 2023-09-11 | Outpatient (REF) | payer MEDICARE, BC ==
[~2023-09-11] MED LIST changes: +AZEL205.5; +ELIQ5TAB PO; +MAGN400T2 PO; +METO25TA4 PO; +POTA-151 PO; +SPIR-10 PO
[2023-09-11 14:02] LABS: HEMATOCRIT 28.9 % (42.0-52.0); HEMOGLOBIN 9.1 g/dl (13.5-17.5); MEAN CORPUSCULAR HEMOGLOBIN 28.6 pg (27.0-33.0); MEAN CORPUSCULAR HGB CONC 31.5 g/dl (32.0-36.5); MEAN CORPUSCULAR VOLUME 90.9 fl (80.0-96.0); PLATELET COUNT, AUTOMATED 247 10^3/uL (150-450); RED BLOOD COUNT 3.18 10^6/uL (4.30-6.10); WHITE BLOOD COUNT 9.8 10^3/uL (4.0-10.0)
[2023-09-11 14:39] LABS: ALKALINE PHOSPHATASE 88 U/L (46-116); ALT/SGPT 97 U/L (7.0-40); AST/SGOT 96 U/L (<34); BILIRUBIN,TOTAL 0.4 MG/DL (0.3-1.2); BLOOD UREA NITROGEN 24 MG/DL (9-23); CALCIUM LEVEL 6.2 MG/DL (8.3-10.6); CARBON DIOXIDE LEVEL 24 MMOL/L (20-31); CHLORIDE LEVEL 104 MMOL/L (98-107); CREATININE FOR GFR 1.07 MG/DL (0.70-1.30); GLOMERULAR FILTRATION RATE > 60.0 (>35); GLUCOSE, FASTING 81 MG/DL (74-106); MAGNESIUM LEVEL 0.7 MG/DL (1.8-2.4); POTASSIUM SERUM 4.7 MMOL/L (3.5-5.1); SODIUM LEVEL 137 MMOL/L (136-145); TOTAL PROTEIN 5.5 G/DL (5.7-8.2)
== END ==
LOC: M SHH 12:57
PROVIDERS: ATTEND Internal Medicine Cardiovascular Disease
DX: R06.02 Shortness of breath (principal); Z79.899 Other long term (current) drug therapy; E83.42 Hypomagnesemia; E87.6 Hypokalemia

== ENCOUNTER → 2023-09-19 | Outpatient (REF) | payer BC, MEDICARE ==
[~2023-09-19] MED LIST changes: +AZEL205.5; +ELIQ5TAB PO; +MAGN400T2 PO; +METO25TA4 PO; +POTA-151 PO; +SPIR-10 PO
[2023-09-19 17:55] LABS: APPEARANCE, URINE CLOUDY (CLEAR); BACTERIA, URINE AUTO 1+ (NEGATIVE); BILIRUBIN, URINE AUTO NEGATIVE (NEGATIVE); BLOOD, URINE BLOOD 2+ (NEGATIVE); COLOR, URINE RED (YELLOW); GLUCOSE, URINE (UA) AUTO NEGATIVE (NEGATIVE); GRANULAR CAST, URINE AUTO 5 /LPF; KETONE, URINE AUTO NEGATIVE (NEGATIVE); LEUKOCYTE ESTERASE, URINE AUTO 3+ (NEGATIVE); MUCUS, URINE SMALL (NEGATIVE); NITRITE, URINE AUTO POSITIVE (NEGATIVE); PROTEIN, URINE AUTO 2+ mg/dL (NEGATIVE); RBC, URINE AUTO TNTC /HPF (0-3); SPECIFIC GRAVITY URINE AUTO 1.008 (1.002-1.035); SQUAMOUS EPITHELIAL CELL UR AU 1 /HPF (0-6); UROBILINOGEN, URINE AUTO 0.2 mg/dL (0.0-2.0); WBC, URINE AUTO TNTC /HPF (0-3)
[2023-09-19 18:05] LABS: BASO % 0.2 % (0.0-1.0); EOS % 0.2 % (0.0-3.0); HEMATOCRIT 27.9 % (42.0-52.0); LYMPH # 0.5 10^3/uL (1.5-5.0); LYMPH % 3.8 % (24.0-44.0); MEAN CORPUSCULAR HEMOGLOBIN 28.7 pg (27.0-33.0); MEAN CORPUSCULAR HGB CONC 32.3 g/dl (32.0-36.5); MEAN CORPUSCULAR VOLUME 88.9 fl (80.0-96.0); MONO # 0.7 10^3/uL (0.0-0.8); MONO % 5.5 % (2.0-8.0); NEUTROPHILS # 11.2 10^3/uL (1.5-8.5); NEUTROPHILS % 89.3 % (36.0-66.0); PLATELET COUNT, AUTOMATED 372 10^3/uL (150-450); RED BLOOD COUNT 3.14 10^6/uL (4.30-6.10); WHITE BLOOD COUNT 12.5 10^3/uL (4.0-10.0)
[2023-09-19 18:06] LABS: FERRITIN 1542.6 NG/ML (10.5-307.3)
[2023-09-19 18:12] LABS: ALBUMIN 1.8 G/DL (3.2-5.2); BILIRUBIN,TOTAL 0.3 MG/DL (0.3-1.2); CALCIUM LEVEL 8.4 MG/DL (8.3-10.6); CREATININE FOR GFR 1.47 MG/DL (0.70-1.30); GLOMERULAR FILTRATION RATE 48.8 (>35); MAGNESIUM LEVEL 1.3 MG/DL (1.8-2.4); POTASSIUM SERUM 4.2 MMOL/L (3.5-5.1)
== END ==
LOC: M SFHCADAM 17:08
PROVIDERS: ATTEND Physician Assistant
DX: N13.30 Unspecified hydronephrosis (principal); R82.998 Other abnormal findings in urine; N17.9 Acute kidney failure, unspecified; R06.09 Other forms of dyspnea; R53.1 Weakness; E83.42 Hypomagnesemia; I48.0 Paroxysmal atrial fibrillation

== ENCOUNTER → 2023-09-20 | Outpatient (REF) | payer BC, MEDICARE ==
[2023-09-20 14:00] LABS: AMORPHOUS SEDIMENT SMALL (NEGATIVE); APPEARANCE, URINE TURBID (CLEAR); BACTERIA, URINE AUTO NEGATIVE (NEGATIVE); BILIRUBIN, URINE AUTO NEGATIVE (NEGATIVE); BLOOD, URINE BLOOD 3+ (NEGATIVE); COLOR, URINE AMBER (YELLOW); GLUCOSE, URINE (UA) AUTO NEGATIVE (NEGATIVE); KETONE, URINE AUTO NEGATIVE (NEGATIVE); LEUKOCYTE ESTERASE, URINE AUTO 3+ (NEGATIVE); NITRITE, URINE AUTO NEGATIVE (NEGATIVE); PROTEIN, URINE AUTO 2+ mg/dL (NEGATIVE); RBC, URINE AUTO TNTC /HPF (0-3); SPECIFIC GRAVITY URINE AUTO 1.009 (1.002-1.035); SQUAMOUS EPITHELIAL CELL UR AU 0 /HPF (0-6); UROBILINOGEN, URINE AUTO 0.2 mg/dL (0.0-2.0); WBC, URINE AUTO TNTC /HPF (0-3)
== END ==
LOC: M SMT 12:25
PROVIDERS: ATTEND Urology
DX: R32 Unspecified urinary incontinence (principal)

== ENCOUNTER → 2023-10-15 | Outpatient (REF) | payer BC, MEDICARE ==
[~2023-10-15] MED LIST changes: +LEVO750T14 PO; +LINE1TAB PO; +LOSA25TA13 PO; +MAGN400C2 PO; +NORV5TAB PO; +ONDA-195 PO; +OXYB5TAB14 PO; +PERC5TAB12 PO; +PROBCAP2 PO
[2023-10-15 17:05] LABS: ALBUMIN 2.4 G/DL (3.2-5.2); ALKALINE PHOSPHATASE 95 U/L (46-116); ALT/SGPT 15 U/L (7.0-40); AST/SGOT 18 U/L (<34); BILIRUBIN,TOTAL 0.5 MG/DL (0.3-1.2); BLOOD UREA NITROGEN 24 MG/DL (9-23); CALCIUM LEVEL 8.7 MG/DL (8.3-10.6); CARBON DIOXIDE LEVEL 28 MMOL/L (20-31); CHLORIDE LEVEL 101 MMOL/L (98-107); CREATININE FOR GFR 0.96 MG/DL (0.70-1.30); GLOMERULAR FILTRATION RATE > 60.0 (>35); GLUCOSE, FASTING 99 MG/DL (74-106); MAGNESIUM LEVEL 1.1 MG/DL (1.8-2.4); POTASSIUM SERUM 3.5 MMOL/L (3.5-5.1); SODIUM LEVEL 135 MMOL/L (136-145); TOTAL PROTEIN 6.2 G/DL (5.7-8.2)
[2023-10-15 17:27] LABS: BASO % 0.4 % (0.0-1.0); EOS % 0.4 % (0.0-3.0); HEMATOCRIT 29.5 % (42.0-52.0); HEMOGLOBIN 9.3 g/dl (13.5-17.5); LYMPH # 0.7 10^3/uL (1.5-5.0); LYMPH % 8.7 % (24.0-44.0); MEAN CORPUSCULAR HEMOGLOBIN 28.2 pg (27.0-33.0); MEAN CORPUSCULAR HGB CONC 31.5 g/dl (32.0-36.5); MEAN CORPUSCULAR VOLUME 89.4 fl (80.0-96.0); MONO # 0.5 10^3/uL (0.0-0.8); MONO % 6.3 % (2.0-8.0); NEUTROPHILS # 6.5 10^3/uL (1.5-8.5); PLATELET COUNT, AUTOMATED 201 10^3/uL (150-450); WHITE BLOOD COUNT 7.8 10^3/uL (4.0-10.0)
[2023-10-15 17:50] LABS: INR 1.15; PARTIAL THROMBOPLASTIN TIME 37.1 SECONDS (24.8-34.2); PROTHROMBIN TIME 14.4 SECONDS (12.5-14.5)
== END ==
LOC: M SFHCADAM 16:47
PROVIDERS: ATTEND Physician Assistant
DX: R68.2 Dry mouth, unspecified (principal); N13.30 Unspecified hydronephrosis; N15.1 Renal and perinephric abscess; R33.9 Retention of urine, unspecified; I48.0 Paroxysmal atrial fibrillation; I25.10 Atherosclerotic heart disease of native coronary artery without angina pectoris; Z98.890 Other specified postprocedural states; Z86.79 Personal history of other diseases of the circulatory system; E83.42 Hypomagnesemia

== ENCOUNTER → 2023-10-15 | Outpatient (REF) | payer BC, MEDICARE | LOC: M SFHCADAM 16:49 | PROVIDERS: ATTEND Physician Assistant | DX: R68.2 Dry mouth, unspecified (principal); N13.30 Unspecified hydronephrosis; N15.1 Renal and perinephric abscess; R33.9 Retention of urine, unspecified; I48.0 Paroxysmal atrial fibrillation; I25.10 Atherosclerotic heart disease of native coronary artery without angina pectoris; Z98.890 Other specified postprocedural states; Z86.79 Personal history of other diseases of the circulatory system; E83.42 Hypomagnesemia ==

== ENCOUNTER → 2023-10-22 | Outpatient (CLI) | payer BC, MEDICARE ==
[2023-10-22 13:02] LABS: BASO % 0.2 % (0.0-1.0); EOS % 0.5 % (0.0-3.0); HEMATOCRIT 28.9 % (42.0-52.0); HEMOGLOBIN 9.1 g/dl (13.5-17.5); LYMPH # 0.5 10^3/uL (1.5-5.0); LYMPH % 7.7 % (24.0-44.0); MEAN CORPUSCULAR HEMOGLOBIN 28.2 pg (27.0-33.0); MEAN CORPUSCULAR HGB CONC 31.5 g/dl (32.0-36.5); MEAN CORPUSCULAR VOLUME 89.5 fl (80.0-96.0); MONO # 0.6 10^3/uL (0.0-0.8); MONO % 9.2 % (2.0-8.0); NEUTROPHILS # 5.3 10^3/uL (1.5-8.5); NEUTROPHILS % 80.9 % (36.0-66.0); PLATELET COUNT, AUTOMATED 122 10^3/uL (150-450); RED BLOOD COUNT 3.23 10^6/uL (4.30-6.10); WHITE BLOOD COUNT 6.6 10^3/uL (4.0-10.0)
[2023-10-22 13:08] LABS: ERYTHROCYTE SEDIMENTATION RATE 89 mm/hr (0-20)
[2023-10-22 13:48] LABS: ALBUMIN 2.5 G/DL (3.2-5.2); ALKALINE PHOSPHATASE 100 U/L (46-116); ALT/SGPT < 9 U/L (7.0-40); AST/SGOT 14 U/L (<34); BILIRUBIN,TOTAL 0.4 MG/DL (0.3-1.2); BLOOD UREA NITROGEN 18 MG/DL (9-23); CALCIUM LEVEL 8.7 MG/DL (8.3-10.6); CARBON DIOXIDE LEVEL 28 MMOL/L (20-31); CHLORIDE LEVEL 101 MMOL/L (98-107); CREATININE FOR GFR 1.04 MG/DL (0.70-1.30); GLOMERULAR FILTRATION RATE > 60.0 (>35); GLUCOSE, FASTING 90 MG/DL (74-106); MAGNESIUM LEVEL 1.2 MG/DL (1.8-2.4); POTASSIUM SERUM 3.8 MMOL/L (3.5-5.1); SODIUM LEVEL 138 MMOL/L (136-145); TOTAL PROTEIN 6.2 G/DL (5.7-8.2)
== END ==
LOC: M PLALAB 09:03
PROVIDERS: ATTEND Internal Medicine Infectious Disease
DX: A49.02 Methicillin resistant Staphylococcus aureus infection, unspecified site (principal); E83.42 Hypomagnesemia

== ENCOUNTER → 2023-10-24 | Outpatient (REF) | payer BC, MEDICARE | LOC: M SFHCADAM 09:26 | PROVIDERS: ATTEND Physician Assistant | DX: R60.0 Localized edema (principal) ==

== ENCOUNTER → 2023-10-30 | Outpatient (REF) | payer BC, MEDICARE ==
[~2023-10-30] MED LIST changes: +AMLO2.5T3 PO; +CARA1TAB6 PO; +FERR325T19 PO; +GABA-1490 PO; -GABA600T4 PO; +LACT1CAP53 PO; +MACR100C43 PO; +NYST100085 TOP; +ONDA-83 PO; -ROSU40TA63 PO; +ROSU40TA81 PO
== END ==
LOC: M SFHCPLAZ 10:01
PROVIDERS: ATTEND Internal Medicine Infectious Disease
DX: K68.19 Other retroperitoneal abscess (principal); A49.02 Methicillin resistant Staphylococcus aureus infection, unspecified site; Z53.9 Procedure and treatment not carried out, unspecified reason

== ENCOUNTER → 2023-10-30 | Outpatient (REF) | payer BC, MEDICARE | LOC: M SFHCADAM 17:02 | PROVIDERS: ATTEND Physician Assistant | DX: R19.7 Diarrhea, unspecified (principal) ==

== ENCOUNTER → 2023-10-31 | Outpatient (CLI) | payer BC, MEDICARE ==
[~2023-10-31] MED LIST changes: -AMLO2.5T3 PO; -CARA1TAB6 PO; -FERR325T19 PO; -GABA-1490 PO; +GABA600T4 PO; +ISOVUE-370 76% 100ML VIAL As Ordered ONE; -LACT1CAP53 PO; -MACR100C43 PO; -NYST100085 TOP; -ONDA-83 PO; +ROSU40TA63 PO; -ROSU40TA81 PO
== END ==
LOC: M RAD 13:38
PROVIDERS: ATTEND Urology
DX: N28.89 Other specified disorders of kidney and ureter (principal); I71.40 Abdominal aortic aneurysm, without rupture, unspecified; D35.01 Benign neoplasm of right adrenal gland
CPT/HCPCS: 74177; Q9967

== ENCOUNTER 2023-11-05 22:04 | Inpatient (IN) | payer BC, MEDICARE ==
[~2023-11-05] VITALS: Ht 180.3 cm; Wt 89.6 kg
[~2023-11-05 22:04] MED LIST changes: -AMLO2.5T3 PO; -CARA1TAB6 PO; -FERR325T19 PO; -LACT1CAP53 PO; -MACR100C43 PO; -NYST100085 TOP; -ONDA-83 PO
[2023-11-06] VITALS (11 sets, daily range): BP systolic 102–157; BP diastolic 54–69; TEMP 96.7–98.9; O2SAT 93–100
[2023-11-06 00:39] LABS: BASO % 0.3 % (0.0-1.0); EOS % 0.4 % (0.0-3.0); LYMPH # 0.8 10^3/uL (1.5-5.0); LYMPH % 10.7 % (24.0-44.0); MEAN CORPUSCULAR HEMOGLOBIN 28.8 pg (27.0-33.0); MEAN CORPUSCULAR HGB CONC 33.7 g/dl (32.0-36.5); MEAN CORPUSCULAR VOLUME 85.4 fl (80.0-96.0); NEUTROPHILS % 71.3 % (36.0-66.0); PLATELET COUNT, AUTOMATED 128 10^3/uL (150-450); RED BLOOD COUNT 2.26 10^6/uL (4.30-6.10)
[2023-11-06 00:42] LABS: HEMATOCRIT 19.3 % (42.0-52.0)
[2023-11-06 00:43] LABS: HEMOGLOBIN 6.5 g/dl (13.5-17.5)
[2023-11-06 01:04] LABS: ALBUMIN 2.3 G/DL (3.2-5.2); BILIRUBIN,TOTAL 0.4 MG/DL (0.3-1.2); CALCIUM LEVEL 7.4 MG/DL (8.3-10.6); CREATININE FOR GFR 1.39 MG/DL (0.70-1.30); GLOMERULAR FILTRATION RATE 52.1 (>35); POTASSIUM SERUM 2.9 MMOL/L (3.5-5.1); TOTAL PROTEIN 5.5 G/DL (5.7-8.2)
[2023-11-06 01:06] LABS: INR 1.41; PARTIAL THROMBOPLASTIN TIME 47.7 SECONDS (24.8-34.2); PROTHROMBIN TIME 16.8 SECONDS (12.5-14.5)
[2023-11-06] MEDS ORDERED: ISOVUE-370 76% 100ML VIAL As Ordered ONE (01:09)
[2023-11-06] MEDS: POTASSIUM CHLORIDE INJ 40 MEQ in D5W/LR 1,000 ML IV SCH (06:00)
[2023-11-06] MEDS ORDERED: ACETAMINOPHEN TAB 650MG DOSE (2X325MG) PO PRN (06:10)
[2023-11-06] MEDS ORDERED: MOM 30ML SUSPENSION UDC PO PRN (06:10)
[2023-11-06] MEDS ORDERED: NS IV SCH (07:25)
[2023-11-06] MEDS ORDERED: D5 IV SCH (07:25)
[2023-11-06] MEDS ORDERED: LR IV SCH (07:25)
[2023-11-06] MEDS ORDERED: KCL IV SCH (07:25)
[2023-11-06] MEDS: NS 1,000 ML IV SCH (08:06)
[2023-11-06] MEDS: POTASSIUM CHLORIDE 10MEQ SR TABLET PO ONE (08:07)
[2023-11-06] MEDS ORDERED: ONDA-83 PO (08:20)
[2023-11-06] MEDS ORDERED: LACT1CAP53 PO (08:20)
[2023-11-06] MEDS ORDERED: FERR325T19 PO (08:25)
[2023-11-06] MEDS ORDERED: HOME MED LIST COMPLETE! XX SCH (08:30)
[2023-11-06 08:51] LABS: BASO % 0.6 % (0.0-1.0); EOS # 0.1 10^3/uL (0.0-0.5); EOS % 0.8 % (0.0-3.0); HEMATOCRIT 27.4 % (42.0-52.0); LYMPH # 0.7 10^3/uL (1.5-5.0); LYMPH % 10.5 % (24.0-44.0); MEAN CORPUSCULAR HEMOGLOBIN 28.7 pg (27.0-33.0); MEAN CORPUSCULAR HGB CONC 33.6 g/dl (32.0-36.5); MEAN CORPUSCULAR VOLUME 85.4 fl (80.0-96.0); MONO # 0.6 10^3/uL (0.0-0.8); MONO % 9.1 % (2.0-8.0); NEUTROPHILS # 4.9 10^3/uL (1.5-8.5); NEUTROPHILS % 74.5 % (36.0-66.0); PLATELET COUNT, AUTOMATED 135 10^3/uL (150-450); RED BLOOD COUNT 3.21 10^6/uL (4.30-6.10); WHITE BLOOD COUNT 6.5 10^3/uL (4.0-10.0)
[2023-11-06 08:52] LABS: HEMOGLOBIN 9.2 g/dl (13.5-17.5)
[2023-11-06] MEDS ORDERED: amLODIPine 5 MG TAB PO SCH (09:00)
[2023-11-06] MEDS ORDERED: LOSARTAN 25 MG TAB PO SCH (09:00)
[2023-11-06] MEDS: PANTOPRAZOLE 40MG TAB (PROTONIX) PO SCH (09:25)
[2023-11-06] MEDS: POTASSIUM CHLORIDE 10MEQ SR TABLET PO SCH ×2 (09:26→16:58)
[2023-11-06] MEDS: METOPROLOL TART 25 MG TABLET PO SCH (09:26)
[2023-11-06 09:48] LABS: CALCIUM LEVEL 7.5 MG/DL (8.3-10.6); CREATININE FOR GFR 1.45 MG/DL (0.70-1.30); GLOMERULAR FILTRATION RATE 49.6 (>35); MAGNESIUM LEVEL 0.8 MG/DL (1.8-2.4); POTASSIUM SERUM 2.6 MMOL/L (3.5-5.1)
[2023-11-06] MEDS: MAG SULF 1GM/100ML (MAG RUN) 1 GM in IV 1 EA IV SCH (10:35)
[2023-11-06] MEDS: RAMELTEON 8 MG TAB (ROZEREM) PO ONE (20:38)
[2023-11-06 21:38] LABS: HEMATOCRIT 22.8 % (42.0-52.0); HEMOGLOBIN 7.9 g/dl (13.5-17.5)
[2023-11-06 22:16] LABS: CALCIUM LEVEL 6.9 MG/DL (8.3-10.6); CREATININE FOR GFR 1.33 MG/DL (0.70-1.30); GLOMERULAR FILTRATION RATE 54.8 (>35); POTASSIUM SERUM 4.2 MMOL/L (3.5-5.1)
[2023-11-07] VITALS (7 sets, daily range): BP systolic 110–142; BP diastolic 44–75; TEMP 97.3–97.9; O2SAT 96–99
[2023-11-07 06:13] LABS: BASO % 0.3 % (0.0-1.0); EOS # 0.1 10^3/uL (0.0-0.5); EOS % 0.9 % (0.0-3.0); HEMATOCRIT 23.4 % (42.0-52.0); HEMOGLOBIN 7.8 g/dl (13.5-17.5); LYMPH # 0.8 10^3/uL (1.5-5.0); LYMPH % 13.2 % (24.0-44.0); MEAN CORPUSCULAR HEMOGLOBIN 28.9 pg (27.0-33.0); MEAN CORPUSCULAR HGB CONC 33.3 g/dl (32.0-36.5); MEAN CORPUSCULAR VOLUME 86.7 fl (80.0-96.0); MONO % 17.2 % (2.0-8.0); NEUTROPHILS # 3.8 10^3/uL (1.5-8.5); NEUTROPHILS % 64.9 % (36.0-66.0); PLATELET COUNT, AUTOMATED 134 10^3/uL (150-450); WHITE BLOOD COUNT 5.8 10^3/uL (4.0-10.0)
[2023-11-07 06:48] LABS: ALKALINE PHOSPHATASE 83 U/L (46-116); ALT/SGPT < 9 U/L (7.0-40); AST/SGOT 17 U/L (<34); BILIRUBIN,TOTAL 0.4 MG/DL (0.3-1.2); BLOOD UREA NITROGEN 18 MG/DL (9-23); CALCIUM LEVEL 7.2 MG/DL (8.3-10.6); CARBON DIOXIDE LEVEL 26 MMOL/L (20-31); CHLORIDE LEVEL 112 MMOL/L (98-107); CREATININE FOR GFR 1.47 MG/DL (0.70-1.30); GLOMERULAR FILTRATION RATE 48.8 (>35); GLUCOSE, FASTING 94 MG/DL (74-106); MAGNESIUM LEVEL 1.1 MG/DL (1.8-2.4); POTASSIUM SERUM 4.2 MMOL/L (3.5-5.1); SODIUM LEVEL 144 MMOL/L (136-145)
[2023-11-07] MEDS: GASTROGRAFIN SOLUTION 30ML PO SCH (09:04)
[2023-11-07] MEDS: MAGNESIUM OXIDE 400MG TAB (MAG-OX) PO SCH (09:05)
[2023-11-07] MEDS: MAG SULF 1GM/100ML (MAG RUN) 1 GM in IV 1 EA IV SCH (09:06)
[2023-11-07] MEDS ORDERED: FLUTICASONE PROP 0.05% NASAL SPRAY 16 GM (FLONASE) NARES PRN (15:50)
[2023-11-07 16:28] LABS: HEMATOCRIT 28.8 % (42.0-52.0); HEMOGLOBIN 9.4 g/dl (13.5-17.5)
[2023-11-07 16:57] LABS: MAGNESIUM LEVEL 1.5 MG/DL (1.8-2.4); POTASSIUM SERUM 4.5 MMOL/L (3.5-5.1)
[2023-11-07] MEDS: ROSUVASTATIN 10 MG TAB (CRESTOR) PO SCH (22:15)
[2023-11-07] MEDS: PANTOPRAZOLE 40MG TAB (PROTONIX) PO SCH (22:15)
[2023-11-07] MEDS: TAMSULOSIN 0.4 MG CAP PO SCH (22:16)
[2023-11-07] MEDS: MONTELUKAST 10 MG TAB PO SCH (22:16)
[2023-11-07] MEDS: GABAPENTIN 300 MG CAP PO SCH (22:16)
[2023-11-07] MEDS: PRIMIDONE 50MG TAB PO SCH (23:01)
[2023-11-07] MEDS: RAMELTEON 8 MG TAB (ROZEREM) PO ONE (23:46)
[2023-11-08 05:03] VITALS: BP 121/73; TEMP 97.2; O2SAT 96
[2023-11-08 06:34] LABS: BASO % 0.3 % (0.0-1.0); EOS # 0.1 10^3/uL (0.0-0.5); EOS % 1.4 % (0.0-3.0); HEMATOCRIT 28.4 % (42.0-52.0); HEMOGLOBIN 9.3 g/dl (13.5-17.5); LYMPH # 0.6 10^3/uL (1.5-5.0); LYMPH % 10.8 % (24.0-44.0); MEAN CORPUSCULAR HEMOGLOBIN 28.3 pg (27.0-33.0); MEAN CORPUSCULAR HGB CONC 32.7 g/dl (32.0-36.5); MEAN CORPUSCULAR VOLUME 86.3 fl (80.0-96.0); MONO # 0.8 10^3/uL (0.0-0.8); MONO % 13.9 % (2.0-8.0); NEUTROPHILS # 4.1 10^3/uL (1.5-8.5); NEUTROPHILS % 71.5 % (36.0-66.0); PLATELET COUNT, AUTOMATED 156 10^3/uL (150-450); RED BLOOD COUNT 3.29 10^6/uL (4.30-6.10); WHITE BLOOD COUNT 5.8 10^3/uL (4.0-10.0)
[2023-11-08 07:05] LABS: CALCIUM LEVEL 7.4 MG/DL (8.3-10.6); CREATININE FOR GFR 1.47 MG/DL (0.70-1.30); GLOMERULAR FILTRATION RATE 48.8 (>35); MAGNESIUM LEVEL 1.4 MG/DL (1.8-2.4); POTASSIUM SERUM 4.7 MMOL/L (3.5-5.1)
[2023-11-08] MEDS ORDERED: CARA1TAB6 PO (07:38)
[2023-11-08] MEDS: MAG SULF 1GM/100ML (MAG RUN) 1 GM in IV 1 EA IV SCH (08:02)
[2023-11-08] MEDS: FERROUS SULFATE 325MG TAB PO SCH (08:23)
[2023-11-08] MEDS: SPIRONOLACTONE 12.5MG PER 1/2 TABLET PO SCH (08:23)
[2023-11-08] MEDS: CYANOCOBALAMIN 500 MCG TAB PO SCH (08:23)
[2023-11-08 08:24] VITALS: BP 121/73
[2023-11-08] MEDS: allopurinoL 100 MG TAB PO SCH (08:24)
[2023-11-08] MEDS: MAGNESIUM OXIDE 400MG TAB (MAG-OX) PO SCH (08:24)
[2023-11-12] MEDS ORDERED: AMLO2.5T3 PO (08:59)
== END 2023-11-08 11:35 | disposition home health service (06) | DRG 661 ==
LOC: M ED 22:04 → M ED INP 11-06 06:10 → M ICU 11-06 08:29 → M MS5PR 11-06 21:52
PROVIDERS: ADMIT Student in an Organized Health Care Education/Training Program; ATTEND General Practice
PROC: 30233N1 Transfusion of Nonautologous Red Blood Cells into Peripheral Vein, Percutaneous Approach (ICD-10-PCS; principal; 2023-11-06)
DX: D68.32 Hemorrhagic disorder due to extrinsic circulating anticoagulants (principal); I25.10 Atherosclerotic heart disease of native coronary artery without angina pectoris; Z95.5 Presence of coronary angioplasty implant and graft; Z86.73 Personal history of transient ischemic attack (TIA), and cerebral infarction without residual deficits; I27.20 Pulmonary hypertension, unspecified; G47.33 Obstructive sleep apnea (adult) (pediatric); I08.0 Rheumatic disorders of both mitral and aortic valves; I11.0 Hypertensive heart disease with heart failure; E78.5 Hyperlipidemia, unspecified; M10.9 Gout, unspecified; J30.9 Allergic rhinitis, unspecified; K21.9 Gastro-esophageal reflux disease without esophagitis; M54.50 Low back pain, unspecified; G62.9 Polyneuropathy, unspecified; J84.9 Interstitial pulmonary disease, unspecified; I50.9 Heart failure, unspecified; I25.2 Old myocardial infarction; E87.6 Hypokalemia; D64.9 Anemia, unspecified; K68.2 Retroperitoneal fibrosis; N17.9 Acute kidney failure, unspecified; K59.09 Other constipation; K57.12 Diverticulitis of small intestine without perforation or abscess without bleeding; N13.30 Unspecified hydronephrosis; I73.9 Peripheral vascular disease, unspecified; M79.89 Other specified soft tissue disorders; R33.9 Retention of urine, unspecified; Z79.899 Other long term (current) drug therapy; Z96.0 Presence of urogenital implants

== ENCOUNTER → 2023-11-05 | Outpatient (REF) | payer BC, MEDICARE ==
[~2023-11-05] MED LIST changes: +AMLO2.5T3 PO; +CARA1TAB6 PO; +FERR325T19 PO; +GABA-1490 PO; -GABA600T4 PO; -ISOVUE-370 76% 100ML VIAL As Ordered ONE; +LACT1CAP53 PO; +MACR100C43 PO; +NYST100085 TOP; +ONDA-83 PO; -ROSU40TA63 PO; +ROSU40TA81 PO
[2023-11-05 17:43] LABS: BASO % 0.3 % (0.0-1.0); EOS % 0.3 % (0.0-3.0); LYMPH # 0.7 10^3/uL (1.5-5.0); LYMPH % 10.1 % (24.0-44.0); MEAN CORPUSCULAR HEMOGLOBIN 28.7 pg (27.0-33.0); MEAN CORPUSCULAR HGB CONC 32.7 g/dl (32.0-36.5); MEAN CORPUSCULAR VOLUME 87.8 fl (80.0-96.0); MONO # 0.9 10^3/uL (0.0-0.8); MONO % 12.1 % (2.0-8.0); NEUTROPHILS # 5.2 10^3/uL (1.5-8.5); NEUTROPHILS % 73.2 % (36.0-66.0); PLATELET COUNT, AUTOMATED 131 10^3/uL (150-450); RED BLOOD COUNT 2.37 10^6/uL (4.30-6.10)
[2023-11-05 18:05] LABS: ERYTHROCYTE SEDIMENTATION RATE 55 mm/hr (0-20)
[2023-11-05 18:10] LABS: HEMATOCRIT 20.8 % (42.0-52.0); HEMOGLOBIN 6.8 g/dl (13.5-17.5)
[2023-11-05 18:13] LABS: C REACTIVE PROTEIN QUANTITATIV 9.9 MG/DL (<1.0)
[2023-11-05 19:23] LABS: ALBUMIN 2.5 G/DL (3.2-5.2); BILIRUBIN,TOTAL 0.4 MG/DL (0.3-1.2); CALCIUM LEVEL 7.3 MG/DL (8.3-10.6); CREATININE FOR GFR 1.4 MG/DL (0.70-1.30); GLOMERULAR FILTRATION RATE 51.7 (>35); POTASSIUM SERUM 2.6 MMOL/L (3.5-5.1); TOTAL PROTEIN 5.7 G/DL (5.7-8.2)
== END ==
LOC: M SHH 16:30
PROVIDERS: ATTEND Internal Medicine Infectious Disease
DX: K68.19 Other retroperitoneal abscess (principal); A49.02 Methicillin resistant Staphylococcus aureus infection, unspecified site

== ENCOUNTER → 2023-11-13 | Outpatient (REF) | payer BC, MEDICARE ==
[~2023-11-13] MED LIST changes: +AMLO2.5T3 PO; +CARA1TAB6 PO; +FERR325T19 PO; +LACT1CAP53 PO; +MACR100C43 PO; +NYST100085 TOP; +ONDA-83 PO
[2023-11-13 13:37] LABS: HEMATOCRIT 30.7 % (42.0-52.0); HEMOGLOBIN 9.6 g/dl (13.5-17.5); MEAN CORPUSCULAR HGB CONC 31.3 g/dl (32.0-36.5); MEAN CORPUSCULAR VOLUME 89.5 fl (80.0-96.0); PLATELET COUNT, AUTOMATED 282 10^3/uL (150-450); RED BLOOD COUNT 3.43 10^6/uL (4.30-6.10); WHITE BLOOD COUNT 7.7 10^3/uL (4.0-10.0)
[2023-11-13 13:51] LABS: ALBUMIN 2.4 G/DL (3.2-5.2); BILIRUBIN,TOTAL 0.4 MG/DL (0.3-1.2); CALCIUM LEVEL 9.2 MG/DL (8.3-10.6); CREATININE FOR GFR 1.46 MG/DL (0.70-1.30); GLOMERULAR FILTRATION RATE 49.2 (>35); MAGNESIUM LEVEL 1.4 MG/DL (1.8-2.4); POTASSIUM SERUM 3.8 MMOL/L (3.5-5.1); TOTAL PROTEIN 6.2 G/DL (5.7-8.2)
== END ==
LOC: M SFHCADAM 08:35
PROVIDERS: ATTEND Physician Assistant
DX: I48.0 Paroxysmal atrial fibrillation (principal); J44.9 Chronic obstructive pulmonary disease, unspecified; D50.0 Iron deficiency anemia secondary to blood loss (chronic)

== ENCOUNTER 2023-11-14 06:08 | Day surgery (SDC) | payer BC, MEDICARE ==
[~2023-11-14] VITALS: Ht 180.3 cm; Wt 83.5 kg
[~2023-11-14 06:08] MED LIST changes: -MACR100C43 PO; -NYST100085 TOP
[2023-11-14] MEDS ORDERED: LR 1,000 ML IV SCH (06:15)
[2023-11-14] MEDS ORDERED: fentaNYL 100 MCG/2 ML INJECTION As Ordered ONE (06:36)
[2023-11-14] MEDS ORDERED: propofoL 200 MG/20 ML VIAL As Ordered ONE (06:36)
[2023-11-14] MEDS ORDERED: LIDOCAINE 2% 100MG/5ML SDV (FOR ANES.) As Ordered ONE (06:36)
[2023-11-14] MEDS ORDERED: ONDANSETRON 4MG 2ML VIAL As Ordered ONE (06:37)
[2023-11-14] MEDS ORDERED: ACETAMINOPHEN 1000MG 100ML IV BAG As Ordered ONE (06:37)
[2023-11-14] MEDS: ceFAZolin SOD 2 GM in IV 1 EA IV ONE (07:45)
[2023-11-14] MEDS ORDERED: ePHEDrine SULFATE 25 MG/5 ML(5MG/ML) SYRINGE As Ordered ONE (07:55)
[2023-11-14] MEDS: ISOVUE-300 61% 100ML VIAL As Ordered ONE (08:08)
[2023-11-14] MEDS ORDERED: fentaNYL 100 MCG/2 ML INJECTION IV PRN (08:10)
[2023-11-14] MEDS ORDERED: oxyCODONE 5MG TAB PO PRN (08:10)
[2023-11-14] MEDS ORDERED: ONDANSETRON 4MG 2ML VIAL IV PRN (08:10)
[2023-11-14] MEDS ORDERED: MACR100C43 PO (08:16)
[2023-11-14] MEDS ORDERED: NYST100085 TOP (08:16)
[2023-11-14] MEDS: NYSTATIN CREAM 15GM TOP PRN (08:50)
[2023-11-14 09:45] VITALS: BP 132/60; TEMP 97.6; O2SAT 94
== END 2023-11-14 10:33 | disposition home or self-care (01) ==
LOC: M SDC 06:08
PROVIDERS: ATTEND Urology
DX: N13.5 Crossing vessel and stricture of ureter without hydronephrosis (principal); N40.1 Benign prostatic hyperplasia with lower urinary tract symptoms; N13.8 Other obstructive and reflux uropathy; R33.8 Other retention of urine; I25.2 Old myocardial infarction; I25.10 Atherosclerotic heart disease of native coronary artery without angina pectoris; I10 Essential (primary) hypertension; E78.00 Pure hypercholesterolemia, unspecified; J44.9 Chronic obstructive pulmonary disease, unspecified; Z79.899 Other long term (current) drug therapy; Z79.51 Long term (current) use of inhaled steroids; Z95.5 Presence of coronary angioplasty implant and graft; Z86.73 Personal history of transient ischemic attack (TIA), and cerebral infarction without residual deficits; Z95.1 Presence of aortocoronary bypass graft; Z85.828 Personal history of other malignant neoplasm of skin; G47.30 Sleep apnea, unspecified; Z90.49 Acquired absence of other specified parts of digestive tract
CPT/HCPCS: 52332; 76000; C1769; C2617; J0131; J0690; J2405; J3010; Q9967

== ENCOUNTER → 2023-12-04 | Outpatient (REF) | payer BC, MEDICARE ==
[~2023-12-04] MED LIST changes: -DOXY-323 PO; +DOXY-441 PO; +FLUC100T3 PO; +LEVO1TAB39 PO; +MACR100C43 PO; +NYST100085 TOP
[2023-12-04 15:33] LABS: APPEARANCE, URINE MANUAL CLOUDY (CLEAR); BILIRUBIN, URINE MANUAL NEGATIVE (NEGATIVE); COLOR, URINE MANUAL LT YELLOW (YELLOW); GLUCOSE, URINE (UA) MANUAL NEGATIVE (NEGATIVE); KETONE, URINE MANUAL NEGATIVE (NEGATIVE); LEUKOCYTE ESTERASE, URINE MAN POSITIVE (NEGATIVE); NITRITE, URINE MANUAL NEGATIVE (NEGATIVE); PROTEIN, URINE MANUAL 2+ mg/dL (NEGATIVE); UROBILINOGEN, URINE MANUAL NORMAL (NORMAL)
[2023-12-04 15:34] LABS: BLOOD URINE MANUAL POSITIVE (NEGATIVE)
[2023-12-04 15:55] LABS: SQUAMOUS EPITHELIAL CELL URINE NONE SEEN /hpf (SMALL AMT)
[2023-12-04 15:56] LABS: BACTERIA, URINE LARGE AMOUNT; HYALINE CAST, URINE NONE SEEN /lpf (0-1); YEAST, URINE LARGE AMOUNT
== END ==
LOC: M SMT 15:02
PROVIDERS: ATTEND Urology
DX: N39.0 Urinary tract infection, site not specified (principal)

== ENCOUNTER → 2023-12-04 | Outpatient (REF) | payer BC, MEDICARE ==
[~2023-12-04] MED LIST changes: -FLUC100T3 PO; -LEVO1TAB39 PO
[2023-12-04 13:35] LABS: BASO % 0.4 % (0.0-1.0); EOS # 0.1 10^3/uL (0.0-0.5); EOS % 0.7 % (0.0-3.0); HEMATOCRIT 25.6 % (42.0-52.0); HEMOGLOBIN 8.2 g/dl (13.5-17.5); LYMPH # 0.9 10^3/uL (1.5-5.0); LYMPH % 7.9 % (24.0-44.0); MEAN CORPUSCULAR HEMOGLOBIN 28.6 pg (27.0-33.0); MEAN CORPUSCULAR VOLUME 89.2 fl (80.0-96.0); MONO # 0.8 10^3/uL (0.0-0.8); MONO % 7.6 % (2.0-8.0); NEUTROPHILS # 8.8 10^3/uL (1.5-8.5); NEUTROPHILS % 81.6 % (36.0-66.0); PLATELET COUNT, AUTOMATED 356 10^3/uL (150-450); RED BLOOD COUNT 2.87 10^6/uL (4.30-6.10); WHITE BLOOD COUNT 10.7 10^3/uL (4.0-10.0)
== END ==
LOC: M SHH 13:04
PROVIDERS: ATTEND Physician Assistant
DX: Z86.2 Personal history of diseases of the blood and blood-forming organs and certain disorders involving the immune mechanism (principal)

== ENCOUNTER 2023-12-08 17:37 | Inpatient (IN) | payer BC, MEDICARE ==
[~2023-12-08] VITALS: Ht 180.3 cm; Wt 97.9 kg
[~2023-12-08 17:37] MED LIST changes: +FLUC100T3 PO; +LEVO1TAB39 PO
[2023-12-08 19:52] LABS: BASO % 0.1 % (0.0-1.0); EOS % 0.1 % (0.0-3.0); HEMATOCRIT 26.1 % (42.0-52.0); HEMOGLOBIN 8.3 g/dl (13.5-17.5); LYMPH # 0.6 10^3/uL (1.5-5.0); LYMPH % 3.6 % (24.0-44.0); MEAN CORPUSCULAR HEMOGLOBIN 27.6 pg (27.0-33.0); MEAN CORPUSCULAR HGB CONC 31.8 g/dl (32.0-36.5); MEAN CORPUSCULAR VOLUME 86.7 fl (80.0-96.0); MONO # 0.9 10^3/uL (0.0-0.8); NEUTROPHILS # 13.4 10^3/uL (1.5-8.5); NEUTROPHILS % 88.7 % (36.0-66.0); PLATELET COUNT, AUTOMATED 322 10^3/uL (150-450); RED BLOOD COUNT 3.01 10^6/uL (4.30-6.10); WHITE BLOOD COUNT 15.1 10^3/uL (4.0-10.0)
[2023-12-08] MEDS: KETOROLAC 30 MG/ML 1ML VIAL IV ONE (19:58)
[2023-12-08 20:15] LABS: URIC ACID 4.7 MG/DL (3.7-9.2)
[2023-12-08 20:19] LABS: CREATININE FOR GFR 2.3 MG/DL (0.70-1.30); GLOMERULAR FILTRATION RATE 29.1 (>35); POTASSIUM SERUM 3.5 MMOL/L (3.5-5.1)
[2023-12-08 20:31] LABS: CALCIUM LEVEL 6.2 MG/DL (8.3-10.6); MAGNESIUM LEVEL 0.7 MG/DL (1.8-2.4)
[2023-12-08] MEDS: MAG SULF 1GM/100ML (MAG RUN) 1 GM in IV 1 EA IV ONE (21:50)
[2023-12-09] VITALS (8 sets, daily range): BP systolic 107–129; BP diastolic 50–66; TEMP 96.8–97.9; O2SAT 90–99
[2023-12-09] MEDS ORDERED: MOM 30ML SUSPENSION UDC PO PRN (02:30)
[2023-12-09] MEDS: NS 500 ML IV ONE (02:30)
[2023-12-09] MEDS ORDERED: NYST100085 TOP (02:31)
[2023-12-09] MEDS ORDERED: HOME MED LIST COMPLETE! XX SCH (02:35)
[2023-12-09] MEDS ORDERED: FLUTICASONE PROP 0.05% NASAL SPRAY 16 GM (FLONASE) NARES PRN (02:40)
[2023-12-09] MEDS ORDERED: ALBUTEROL 90 MCG/ACT 8GM HFA INHALER INH PRN (02:40)
[2023-12-09] MEDS: MONTELUKAST 10 MG TAB PO SCH (03:31)
[2023-12-09] MEDS: TAMSULOSIN 0.4 MG CAP PO SCH (03:32)
[2023-12-09] MEDS: MAG SULF 1GM/100ML (MAG RUN) 1 GM in IV 1 EA IV STA (03:32)
[2023-12-09] MEDS: PRIMIDONE 50MG TAB PO SCH (03:34)
[2023-12-09] MEDS: ACETAMINOPHEN 325 MG TAB PO PRN (03:41)
[2023-12-09] MEDS ORDERED: cefTRIAXone SOD 1 GM in D5W MINI-BAG PLUS 50 ML IV SCH (06:00)
[2023-12-09] MEDS: cefTRIAXone SOD 2 GM in D5W MINI-BAG PLUS 50 ML IV SCH (06:30)
[2023-12-09 07:38] LABS: ALBUMIN 1.5 G/DL (3.2-5.2); BILIRUBIN,TOTAL 0.3 MG/DL (0.3-1.2); CALCIUM LEVEL 5.9 MG/DL (8.3-10.6); CREATININE FOR GFR 2.38 MG/DL (0.70-1.30); MAGNESIUM LEVEL 1.2 MG/DL (1.8-2.4); POTASSIUM SERUM 3.5 MMOL/L (3.5-5.1); TOTAL PROTEIN 5.2 G/DL (5.7-8.2)
[2023-12-09] MEDS: TIOTROPIUM INHALER/CAPSULE (SPIRIVA) INH SCH (08:00)
[2023-12-09] MEDS: MAG SULF 1GM/100ML (MAG RUN) 1 GM in IV 1 EA IV SCH ×2 (08:48→13:00)
[2023-12-09] MEDS ORDERED: MAG SULF 1GM/100ML (MAG RUN) 1 GM in IV 1 EA IV SCH (09:00)
[2023-12-09] MEDS: NYSTATIN OINTMENT 15 GM TOP SCH (09:00)
[2023-12-09] MEDS ORDERED: LOSARTAN 50MG TABLET PO SCH (09:00)
[2023-12-09 09:16] LABS: BASO % 0.4 % (0.0-1.0); EOS % 0.4 % (0.0-3.0); HEMATOCRIT 22.8 % (42.0-52.0); HEMOGLOBIN 7.3 g/dl (13.5-17.5); LYMPH # 0.9 10^3/uL (1.5-5.0); MEAN CORPUSCULAR HEMOGLOBIN 27.8 pg (27.0-33.0); MEAN CORPUSCULAR VOLUME 86.7 fl (80.0-96.0); MONO # 0.6 10^3/uL (0.0-0.8); MONO % 6.3 % (2.0-8.0); NEUTROPHILS # 8.3 10^3/uL (1.5-8.5); NEUTROPHILS % 82.6 % (36.0-66.0); PLATELET COUNT, AUTOMATED 287 10^3/uL (150-450); RED BLOOD COUNT 2.63 10^6/uL (4.30-6.10)
[2023-12-09] MEDS: CYANOCOBALAMIN 500 MCG TAB PO SCH (10:30)
[2023-12-09] MEDS: predniSONE 20 MG TAB PO SCH (10:33)
[2023-12-09] MEDS: NORCO, ANEXSIA 5/325MG TABLET (HYDROcodone/ACETAMINOPHEN) PO PRN (10:33)
[2023-12-09] MEDS: METOPROLOL TART 25 MG TABLET PO SCH (10:34)
[2023-12-09] MEDS: FERROUS SULFATE 325MG TAB PO SCH (10:35)
[2023-12-09] MEDS: MAGNESIUM OXIDE 400MG TAB (MAG-OX) PO SCH (10:35)
[2023-12-09] MEDS: HEPARIN SOD (PORCINE) 5000UNITS/ML 1ML VIAL/SYRINGE SQ SCH (10:38)
[2023-12-09] MEDS ORDERED: NITROGLYCERIN 0.4MG SUBL TABLET SL PRN (11:50)
[2023-12-09] MEDS: CALCIUM GLUCONATE 1,000 MG in D5W MINI-BAG PLUS 100 ML IV ONE (12:59)
[2023-12-09 14:30] LABS: ALBUMIN 1.6 G/DL (3.2-5.2); CALCIUM LEVEL 6.8 MG/DL (8.3-10.6); CREATININE FOR GFR 2.27 MG/DL (0.70-1.30); GLOMERULAR FILTRATION RATE 29.6 (>35); PHOSPHORUS LEVEL 4.4 MG/DL (2.4-5.1); POTASSIUM SERUM 3.6 MMOL/L (3.5-5.1)
[2023-12-09] MEDS: ADVAIR HFA 115/21MCG INHALER INH SCH (20:00)
[2023-12-09] MEDS: PANTOPRAZOLE 40MG TAB (PROTONIX) PO SCH (20:10)
[2023-12-09] MEDS: ROSUVASTATIN 10 MG TAB (CRESTOR) PO SCH (20:10)
[2023-12-10] VITALS (9 sets, daily range): BP systolic 108–143; BP diastolic 55–71; TEMP 96.6–97.3; O2SAT 93–97
[2023-12-10 05:19] LABS: BASO % 0.1 % (0.0-1.0); HEMATOCRIT 24.2 % (42.0-52.0); HEMOGLOBIN 7.9 g/dl (13.5-17.5); LYMPH # 0.5 10^3/uL (1.5-5.0); LYMPH % 4.8 % (24.0-44.0); MEAN CORPUSCULAR HEMOGLOBIN 27.7 pg (27.0-33.0); MEAN CORPUSCULAR HGB CONC 32.6 g/dl (32.0-36.5); MEAN CORPUSCULAR VOLUME 84.9 fl (80.0-96.0); MONO # 0.4 10^3/uL (0.0-0.8); MONO % 4.5 % (2.0-8.0); NEUTROPHILS # 8.5 10^3/uL (1.5-8.5); NEUTROPHILS % 89.5 % (36.0-66.0); PLATELET COUNT, AUTOMATED 271 10^3/uL (150-450); RED BLOOD COUNT 2.85 10^6/uL (4.30-6.10); WHITE BLOOD COUNT 9.5 10^3/uL (4.0-10.0)
[2023-12-10 05:48] LABS: ALBUMIN 1.5 G/DL (3.2-5.2); BILIRUBIN,TOTAL 0.2 MG/DL (0.3-1.2); CALCIUM LEVEL 6.9 MG/DL (8.3-10.6); CREATININE FOR GFR 2.28 MG/DL (0.70-1.30); GLOMERULAR FILTRATION RATE 29.4 (>35); MAGNESIUM LEVEL 1.8 MG/DL (1.8-2.4); POTASSIUM SERUM 3.8 MMOL/L (3.5-5.1); TOTAL PROTEIN 5.2 G/DL (5.7-8.2)
[2023-12-10] MEDS ORDERED: NS 1,000 ML IV SCH (07:25)
[2023-12-10] MEDS ORDERED: CIPROFLOXACIN 400 MG in IV 1 EA IV ONE (07:25)
[2023-12-10] MEDS: LACTOBACILLUS ACIDOPHILUS CAP (BACID) PO SCH (09:31)
[2023-12-10] MEDS: NS 1,000 ML IV SCH (09:35)
[2023-12-10] MEDS: FLUBLOK(EGGFREE) TRIVAL(24-25) VACCINE PF 0.5ML SYRINGE 18YRS & OLDER IM.IMMUN ONE (10:42)
[2023-12-10] MEDS: MICAFUNGIN SODIUM 100 MG in D5W MINI-BAG PLUS 100 ML IV SCH (17:48)
[2023-12-11] VITALS (12 sets, daily range): BP systolic 125–146; BP diastolic 54–70; TEMP 97.2–97.3; O2SAT 89–93
[2023-12-11 06:01] LABS: BASO % 0.1 % (0.0-1.0); HEMATOCRIT 21.6 % (42.0-52.0); LYMPH # 0.7 10^3/uL (1.5-5.0); LYMPH % 7.2 % (24.0-44.0); MEAN CORPUSCULAR HEMOGLOBIN 27.8 pg (27.0-33.0); MEAN CORPUSCULAR HGB CONC 32.4 g/dl (32.0-36.5); MEAN CORPUSCULAR VOLUME 85.7 fl (80.0-96.0); MONO # 0.5 10^3/uL (0.0-0.8); MONO % 5.4 % (2.0-8.0); NEUTROPHILS % 85.1 % (36.0-66.0); PLATELET COUNT, AUTOMATED 256 10^3/uL (150-450); RED BLOOD COUNT 2.52 10^6/uL (4.30-6.10); WHITE BLOOD COUNT 9.4 10^3/uL (4.0-10.0)
[2023-12-11 06:27] LABS: ALBUMIN 1.6 G/DL (3.2-5.2); ALKALINE PHOSPHATASE 82 U/L (46-116); ALT/SGPT 16 U/L (7.0-40); AST/SGOT 17 U/L (<34); BILIRUBIN,TOTAL < 0.2 MG/DL (0.3-1.2); BLOOD UREA NITROGEN 32 MG/DL (9-23); CALCIUM LEVEL 6.8 MG/DL (8.3-10.6); CARBON DIOXIDE LEVEL 26 MMOL/L (20-31); CHLORIDE LEVEL 105 MMOL/L (98-107); CREATININE FOR GFR 1.76 MG/DL (0.70-1.30); GLOMERULAR FILTRATION RATE 39.7 (>35); GLUCOSE, FASTING 91 MG/DL (74-106); MAGNESIUM LEVEL 1.6 MG/DL (1.8-2.4); SODIUM LEVEL 137 MMOL/L (136-145); TOTAL PROTEIN 5.2 G/DL (5.7-8.2)
[2023-12-11] MEDS: MAGNESIUM OXIDE 400MG TAB (MAG-OX) PO ONE (08:25)
[2023-12-11] MEDS: MAG SULF 1GM/100ML (MAG RUN) 1 GM in IV 1 EA IV SCH (08:29)
[2023-12-11 21:27] LABS: HEMATOCRIT 27.2 % (42.0-52.0); HEMOGLOBIN 8.9 g/dl (13.5-17.5)
[2023-12-12 03:52] VITALS: BP 148/69; TEMP 97.2; O2SAT 92
[2023-12-12 05:48] LABS: BASO % 0.2 % (0.0-1.0); HEMATOCRIT 27.3 % (42.0-52.0); HEMOGLOBIN 8.9 g/dl (13.5-17.5); LYMPH # 0.7 10^3/uL (1.5-5.0); LYMPH % 6.2 % (24.0-44.0); MEAN CORPUSCULAR HEMOGLOBIN 27.7 pg (27.0-33.0); MEAN CORPUSCULAR HGB CONC 32.6 g/dl (32.0-36.5); MONO # 0.5 10^3/uL (0.0-0.8); MONO % 5.1 % (2.0-8.0); NEUTROPHILS % 84.8 % (36.0-66.0); PLATELET COUNT, AUTOMATED 271 10^3/uL (150-450); RED BLOOD COUNT 3.21 10^6/uL (4.30-6.10); WHITE BLOOD COUNT 10.6 10^3/uL (4.0-10.0)
[2023-12-12 06:22] LABS: ALBUMIN 1.8 G/DL (3.2-5.2); BILIRUBIN,TOTAL 0.2 MG/DL (0.3-1.2); CALCIUM LEVEL 7.2 MG/DL (8.3-10.6); CREATININE FOR GFR 1.42 MG/DL (0.70-1.30); GLOMERULAR FILTRATION RATE 50.8 (>35); MAGNESIUM LEVEL 1.5 MG/DL (1.8-2.4); POTASSIUM SERUM 3.9 MMOL/L (3.5-5.1); TOTAL PROTEIN 5.6 G/DL (5.7-8.2)
[2023-12-12] MEDS: guaiFENesin ER TABLET 600 MG TAB PO SCH (08:24)
[2023-12-12 09:19] VITALS: O2SAT 93
[2023-12-12] MEDS: SPIRONOLACTONE 12.5MG PER 1/2 TABLET PO SCH (10:25)
[2023-12-12] MEDS: FUROSEMIDE 20MG/2ML VIAL IV ONE (10:27)
[2023-12-12] MEDS: MAG SULF 1GM/100ML (MAG RUN) 1 GM in IV 1 EA IV SCH ×2 (11:07→13:18)
[2023-12-12 11:45] VITALS: BP 151/69; TEMP 97.3; O2SAT 92
[2023-12-12 12:07] LABS: PROCALCITONIN 0.12 ng/ml
[2023-12-12] MEDS: POTASSIUM CHLORIDE 10MEQ SR TABLET PO ONE (13:23)
[2023-12-12 17:20] LABS: BLOOD UREA NITROGEN 25 MG/DL (9-23); CALCIUM LEVEL 7.4 MG/DL (8.3-10.6); CARBON DIOXIDE LEVEL 26 MMOL/L (20-31); CHLORIDE LEVEL 106 MMOL/L (98-107); CREATININE FOR GFR 1.18 MG/DL (0.70-1.30); GLOMERULAR FILTRATION RATE > 60.0 (>35); GLUCOSE, FASTING 122 MG/DL (74-106); MAGNESIUM LEVEL 2.2 MG/DL (1.8-2.4); POTASSIUM SERUM 4.1 MMOL/L (3.5-5.1); SODIUM LEVEL 140 MMOL/L (136-145)
[2023-12-12 20:00] VITALS: BP 150/68; TEMP 97.2; O2SAT 91
[2023-12-12] MEDS: MAGNESIUM OXIDE 400MG TAB (MAG-OX) PO SCH (20:37)
[2023-12-13 04:00] VITALS: BP 148/64; TEMP 97.4; O2SAT 93
[2023-12-13 05:52] LABS: HEMATOCRIT 32.7 % (42.0-52.0); HEMOGLOBIN 10.6 g/dl (13.5-17.5); MEAN CORPUSCULAR HEMOGLOBIN 27.5 pg (27.0-33.0); MEAN CORPUSCULAR HGB CONC 32.4 g/dl (32.0-36.5); MEAN CORPUSCULAR VOLUME 84.7 fl (80.0-96.0); PLATELET COUNT, AUTOMATED 280 10^3/uL (150-450); RED BLOOD COUNT 3.86 10^6/uL (4.30-6.10); WHITE BLOOD COUNT 12.2 10^3/uL (4.0-10.0)
[2023-12-13 06:24] LABS: ALBUMIN 2.1 G/DL (3.2-5.2); ALKALINE PHOSPHATASE 106 U/L (46-116); ALT/SGPT 21 U/L (7.0-40); AST/SGOT 21 U/L (<34); BILIRUBIN,TOTAL 0.4 MG/DL (0.3-1.2); BLOOD UREA NITROGEN 26 MG/DL (9-23); CARBON DIOXIDE LEVEL 26 MMOL/L (20-31); CHLORIDE LEVEL 106 MMOL/L (98-107); CREATININE FOR GFR 1.12 MG/DL (0.70-1.30); GLOMERULAR FILTRATION RATE > 60.0 (>35); GLUCOSE, FASTING 70 MG/DL (74-106); MAGNESIUM LEVEL 1.9 MG/DL (1.8-2.4); POTASSIUM SERUM 4.1 MMOL/L (3.5-5.1); SODIUM LEVEL 138 MMOL/L (136-145); TOTAL PROTEIN 6.3 G/DL (5.7-8.2)
[2023-12-13 07:08] LABS: LYMPHOCYTES 5 % (16-44); MONOCYTES 3 % (0-5); MYELOCYTES 1 % (0-0); NEUTROPHILS 91 % (28-66); PLATELET ESTIMATE NORMAL (NORMAL)
[2023-12-13 07:09] LABS: ANISOCYTOSIS 2+; MICROCYTOSIS 1+
[2023-12-13 07:10] LABS: TEAR DROP CELLS 1+
[2023-12-13 09:50] VITALS: BP 151/69
[2023-12-13] MEDS: FLUCONAZOLE 100 MG TAB PO SCH (09:50)
[2023-12-13 12:00] VITALS: BP 149/69; TEMP 97.2; O2SAT 92
[2023-12-13] MEDS ORDERED: ARTIFICIAL TEARS DROPS 15ML BTL (VISINE DRY RELIEF) OU SA PRN (12:20)
[2023-12-13] MEDS ORDERED: FLUC100T3 PO (12:31)
[2023-12-13] MEDS ORDERED: Peg 400/Hypromellose/Glycerin OU SA (12:31)
[2023-12-13] MEDS ORDERED: GENT1SOL17 OS (14:20)
== END 2023-12-13 15:16 | disposition home or self-care (01) | DRG 466 ==
LOC: M ED 17:37 → M ED INP 12-09 02:29 → M MSPAV 12-09 15:25
PROVIDERS: ADMIT Internal Medicine; ATTEND Internal Medicine
PROC: 30233N1 Transfusion of Nonautologous Red Blood Cells into Peripheral Vein, Percutaneous Approach (ICD-10-PCS; 2023-12-09)
PROC: 0T25X0Z Change Drainage Device in Kidney, External Approach (ICD-10-PCS; principal; 2023-12-10 08:00)
DX: T83.098A Other mechanical complication of other urinary catheter, initial encounter (principal); K68.2 Retroperitoneal fibrosis; N17.9 Acute kidney failure, unspecified; I13.0 Hypertensive heart and chronic kidney disease with heart failure and stage 1 through stage 4 chronic kidney disease, or unspecified chronic kidney disease; I27.20 Pulmonary hypertension, unspecified; N13.2 Hydronephrosis with renal and ureteral calculous obstruction; E83.42 Hypomagnesemia; I50.32 Chronic diastolic (congestive) heart failure; E83.51 Hypocalcemia; N18.30 Chronic kidney disease, stage 3 unspecified; N39.0 Urinary tract infection, site not specified; Z95.1 Presence of aortocoronary bypass graft; D64.9 Anemia, unspecified; E66.9 Obesity, unspecified; G47.33 Obstructive sleep apnea (adult) (pediatric); G89.29 Other chronic pain; I25.10 Atherosclerotic heart disease of native coronary artery without angina pectoris; K21.9 Gastro-esophageal reflux disease without esophagitis; M10.9 Gout, unspecified; M54.50 Low back pain, unspecified; N40.0 Benign prostatic hyperplasia without lower urinary tract symptoms; Z68.25 Body mass index [BMI] 25.0-25.9, adult; Y84.6 Urinary catheterization as the cause of abnormal reaction of the patient, or of later complication, without mention of misadventure at the time of the procedure; Z86.73 Personal history of transient ischemic attack (TIA), and cerebral infarction without residual deficits; Z95.2 Presence of prosthetic heart valve; I08.0 Rheumatic disorders of both mitral and aortic valves; E78.5 Hyperlipidemia, unspecified; Z79.899 Other long term (current) drug therapy; Z98.49 Cataract extraction status, unspecified eye; M19.90 Unspecified osteoarthritis, unspecified site

== ENCOUNTER → 2023-12-18 | Outpatient (REF) | payer BC, MEDICARE ==
[~2023-12-18] MED LIST changes: +GENT1SOL17 OS; +Peg 400/Hypromellose/Glycerin OU SA
[2023-12-18 18:18] LABS: HEMATOCRIT 36.6 % (42.0-52.0); HEMOGLOBIN 11.5 g/dl (13.5-17.5); MEAN CORPUSCULAR HEMOGLOBIN 27.8 pg (27.0-33.0); MEAN CORPUSCULAR HGB CONC 31.4 g/dl (32.0-36.5); MEAN CORPUSCULAR VOLUME 88.6 fl (80.0-96.0); PLATELET COUNT, AUTOMATED 232 10^3/uL (150-450); RED BLOOD COUNT 4.13 10^6/uL (4.30-6.10); WHITE BLOOD COUNT 14.6 10^3/uL (4.0-10.0)
[2023-12-18 18:41] LABS: BLOOD UREA NITROGEN 23 MG/DL (9-23); CALCIUM LEVEL 8.9 MG/DL (8.3-10.6); CARBON DIOXIDE LEVEL 25 MMOL/L (20-31); CHLORIDE LEVEL 105 MMOL/L (98-107); CREATININE FOR GFR 1.15 MG/DL (0.70-1.30); GLOMERULAR FILTRATION RATE > 60.0 (>35); GLUCOSE, FASTING 98 MG/DL (74-106); POTASSIUM SERUM 3.9 MMOL/L (3.5-5.1); SODIUM LEVEL 137 MMOL/L (136-145)
== END ==
LOC: M SMT 17:15
PROVIDERS: ATTEND Urology
DX: Z01.818 Encounter for other preprocedural examination (principal); N13.30 Unspecified hydronephrosis

== ENCOUNTER → 2023-12-27 | Outpatient (REF) | payer BC, MEDICARE ==
[2023-12-27 19:42] LABS: BASO % 0.2 % (0.0-1.0); EOS % 0.2 % (0.0-3.0); HEMATOCRIT 35.5 % (42.0-52.0); HEMOGLOBIN 11.2 g/dl (13.5-17.5); LYMPH # 0.6 10^3/uL (1.5-5.0); LYMPH % 4.9 % (24.0-44.0); MEAN CORPUSCULAR HEMOGLOBIN 28.6 pg (27.0-33.0); MEAN CORPUSCULAR HGB CONC 31.5 g/dl (32.0-36.5); MEAN CORPUSCULAR VOLUME 90.8 fl (80.0-96.0); MONO # 0.8 10^3/uL (0.0-0.8); MONO % 6.8 % (2.0-8.0); NEUTROPHILS # 10.6 10^3/uL (1.5-8.5); PLATELET COUNT, AUTOMATED 212 10^3/uL (150-450); RED BLOOD COUNT 3.91 10^6/uL (4.30-6.10); WHITE BLOOD COUNT 12.1 10^3/uL (4.0-10.0)
[2023-12-27 20:02] LABS: BLOOD UREA NITROGEN 23 MG/DL (9-23); CALCIUM LEVEL 9.5 MG/DL (8.3-10.6); CARBON DIOXIDE LEVEL 23 MMOL/L (20-31); CHLORIDE LEVEL 102 MMOL/L (98-107); GLOMERULAR FILTRATION RATE > 60.0 (>35); GLUCOSE, FASTING 95 MG/DL (74-106); MAGNESIUM LEVEL 1.7 MG/DL (1.8-2.4); POTASSIUM SERUM 4.5 MMOL/L (3.5-5.1); SODIUM LEVEL 134 MMOL/L (136-145)
== END ==
LOC: M LABDRWAD 17:25
PROVIDERS: ATTEND Physician Assistant
DX: E83.42 Hypomagnesemia (principal); B37.49 Other urogenital candidiasis; D50.9 Iron deficiency anemia, unspecified; I48.0 Paroxysmal atrial fibrillation

== ENCOUNTER → 2023-12-27 | Outpatient (REF) | payer BC, MEDICARE | LOC: M SMT 17:12 | PROVIDERS: ATTEND Urology | DX: Z01.818 Encounter for other preprocedural examination (principal); N13.30 Unspecified hydronephrosis ==

== ENCOUNTER 2024-01-06 07:50 | Day surgery (SDC) | payer BC, MEDICARE ==
[~2024-01-06] VITALS: Ht 180.3 cm; Wt 77.2 kg
[~2024-01-06 07:50] MED LIST changes: -LEVO750T14 PO; +LEVO75TAB PO; +MAGN400T35 PO; +VANCOMYCIN 1,000 MG/200 ML IV BAG *LOAD IV ONE; +ceFAZolin SOD 2 GM in IV 1 EA IV ONE
[2024-01-06] MEDS ORDERED: NS 1,000 ML IV SCH (08:00)
[2024-01-06] MEDS ORDERED: LIDOCAINE 2% 100MG/5ML SDV (FOR ANES.) As Ordered ONE (08:22)
[2024-01-06] MEDS ORDERED: dexmedeTOMIDine (4MCG/ML)200MCG/50ML BTL (PRECEDEX) As Ordered ONE (08:22)
[2024-01-06] MEDS ORDERED: propofoL 200 MG/20 ML VIAL As Ordered ONE (08:22)
[2024-01-06] MEDS ORDERED: ONDANSETRON 4MG 2ML VIAL As Ordered ONE (08:22)
[2024-01-06] MEDS ORDERED: fentaNYL 100 MCG/2 ML INJECTION As Ordered ONE (08:22)
[2024-01-06] MEDS ORDERED: LIDOCAINE 2% 5ML JELLY UROJET As Ordered ONE (08:47)
[2024-01-06] MEDS ORDERED: AMOX500C (08:56)
[2024-01-06] MEDS ORDERED: GENTAMICIN 100 MG in D5W 50 ML IV ONE (09:00)
[2024-01-06] MEDS ORDERED: ISOVUE-300 61% 100ML VIAL As Ordered ONE (09:33)
[2024-01-06 10:52] VITALS: BP 138/63; TEMP 97.8; O2SAT 98
== END 2024-01-06 11:20 | disposition home or self-care (01) ==
LOC: M SDC 07:50
PROVIDERS: ATTEND Urology
DX: N13.6 Pyonephrosis (principal); I48.91 Unspecified atrial fibrillation; I25.10 Atherosclerotic heart disease of native coronary artery without angina pectoris; I25.2 Old myocardial infarction; I10 Essential (primary) hypertension; E78.00 Pure hypercholesterolemia, unspecified; Z79.899 Other long term (current) drug therapy; Z86.73 Personal history of transient ischemic attack (TIA), and cerebral infarction without residual deficits; G62.9 Polyneuropathy, unspecified; G25.0 Essential tremor; M10.9 Gout, unspecified; Z85.828 Personal history of other malignant neoplasm of skin; Z95.1 Presence of aortocoronary bypass graft; Z90.49 Acquired absence of other specified parts of digestive tract; J30.89 Other allergic rhinitis; Z87.19 Personal history of other diseases of the digestive system; Z87.891 Personal history of nicotine dependence
CPT/HCPCS: 52332; 76000; A4215; C1769; C2625; J2405; J3010; Q9967

== ENCOUNTER → 2024-01-19 | Outpatient (REF) | payer BC, MEDICARE ==
[~2024-01-19] MED LIST changes: +AMOX500C; -VANCOMYCIN 1,000 MG/200 ML IV BAG *LOAD IV ONE; -ceFAZolin SOD 2 GM in IV 1 EA IV ONE
== END ==
LOC: M LAB REF 18:54
PROVIDERS: ATTEND Registered Nurse
DX: N39.0 Urinary tract infection, site not specified (principal)

== ENCOUNTER 2024-02-05 01:58 | Emergency (ER) | payer BC, MEDICARE ==
[~2024-02-05] VITALS: Ht 180.3 cm; Wt 77.3 kg
[~2024-02-05 01:58] MED LIST changes: -TADA2.5T PO; +TADA2.5T20 PO
[2024-02-05 02:30] LABS: BASO % 0.2 % (0.0-1.0); HEMATOCRIT 26.2 % (42.0-52.0); HEMOGLOBIN 8.6 g/dl (13.5-17.5); LYMPH # 0.7 10^3/uL (1.5-5.0); LYMPH % 3.2 % (24.0-44.0); MEAN CORPUSCULAR HEMOGLOBIN 29.3 pg (27.0-33.0); MEAN CORPUSCULAR HGB CONC 32.8 g/dl (32.0-36.5); MEAN CORPUSCULAR VOLUME 89.1 fl (80.0-96.0); MONO # 0.9 10^3/uL (0.0-0.8); MONO % 4.1 % (2.0-8.0); NEUTROPHILS # 20.6 10^3/uL (1.5-8.5); NEUTROPHILS % 90.2 % (36.0-66.0); PLATELET COUNT, AUTOMATED 283 10^3/uL (150-450); RED BLOOD COUNT 2.94 10^6/uL (4.30-6.10); WHITE BLOOD COUNT 22.8 10^3/uL (4.0-10.0)
[2024-02-05] MEDS ORDERED: AMLO25TA PO (02:33)
[2024-02-05 02:55] LABS: CPK CREATINE PHOSPHOKINASE 54 U/L (46-171)
[2024-02-05 03:02] LABS: RSV AMPLIFICATION NEGATIVE (NEGATIVE)
[2024-02-05 03:55] LABS: ALBUMIN 1.7 G/DL (3.2-5.2); ALKALINE PHOSPHATASE 86 U/L (40-129); ALT/SGPT 10 U/L (7.0-40); AST/SGOT 19 U/L (<34); BILIRUBIN,DIRECT 0.2 MG/DL (<0.4); BILIRUBIN,TOTAL 0.4 MG/DL (0.3-1.2); BLOOD UREA NITROGEN 48 MG/DL (9-23); CALCIUM LEVEL 5.8 MG/DL (8.3-10.6); CARBON DIOXIDE LEVEL 22 MMOL/L (20-31); CHLORIDE LEVEL 103 MMOL/L (98-107); CK-MB VALUE MASS < 1.0 NG/ML (<3.6); CREATININE FOR GFR 4.49 MG/DL (0.70-1.30); GLOMERULAR FILTRATION RATE 13.4 (>35); GLUCOSE, FASTING 99 MG/DL (74-106); MB/CK RELATIVE INDEX 1.85 (< OR =4); POTASSIUM SERUM 3.1 MMOL/L (3.5-5.1); SODIUM LEVEL 139 MMOL/L (136-145); THYROID STIMULATING HORMONE 1.392 uIU/ML (0.55-4.78); TOTAL PROTEIN 5.6 G/DL (5.7-8.2)
[2024-02-05] MEDS: NS 1,000 ML IV ONE (04:30)
[2024-02-05] MEDS: PIPERACILLIN/TAZOBACTAM SOD 4.5 GM in DEXTROSE 5% (D5W) ADV/MINI-BAG 50 ML IV ONE (04:30)
[2024-02-05 10:30] VITALS: BP 117/66; O2SAT 94
[2024-02-05 10:43] VITALS: TEMP 97.8
== END 2024-02-05 11:06 | disposition short-term general hospital (02) ==
LOC: M ED 01:58 → EDBD 01:58 → M ED 11:06
DX: K68.19 Other retroperitoneal abscess (principal); A41.9 Sepsis, unspecified organism; N17.9 Acute kidney failure, unspecified; E87.6 Hypokalemia; E83.51 Hypocalcemia; I51.7 Cardiomegaly; J81.0 Acute pulmonary edema; E04.1 Nontoxic single thyroid nodule; I70.0 Atherosclerosis of aorta; D35.01 Benign neoplasm of right adrenal gland; K57.30 Diverticulosis of large intestine without perforation or abscess without bleeding; I51.9 Heart disease, unspecified; K21.9 Gastro-esophageal reflux disease without esophagitis; I71.40 Abdominal aortic aneurysm, without rupture, unspecified; J84.9 Interstitial pulmonary disease, unspecified; J30.89 Other allergic rhinitis; Z93.6 Other artificial openings of urinary tract status; Z95.5 Presence of coronary angioplasty implant and graft; F17.290 Nicotine dependence, other tobacco product, uncomplicated; Z79.899 Other long term (current) drug therapy
CPT/HCPCS: 71045; 71250; 74176; 80048; 80076; 82330; 82550; 82553; 83605; 84145; 84443; 84484; 85025; 87040; 87486; 87581; 87631; 87633; 87798; 93005; 96365; 99285; J2543

== ENCOUNTER → 2024-02-25 | Outpatient (REF) | payer BC, MEDICARE ==
[~2024-02-25] MED LIST changes: +AMLO25TA PO
[2024-02-25 13:18] LABS: BASO % 0.3 % (0.0-1.0); EOS # 0.1 10^3/uL (0.0-0.5); EOS % 0.8 % (0.0-3.0); HEMOGLOBIN 7.8 g/dl (13.5-17.5); LYMPH # 0.7 10^3/uL (1.5-5.0); MEAN CORPUSCULAR HEMOGLOBIN 29.3 pg (27.0-33.0); MEAN CORPUSCULAR HGB CONC 31.2 g/dl (32.0-36.5); MONO # 0.7 10^3/uL (0.0-0.8); MONO % 8.1 % (2.0-8.0); NEUTROPHILS # 7.5 10^3/uL (1.5-8.5); NEUTROPHILS % 81.9 % (36.0-66.0); PLATELET COUNT, AUTOMATED 272 10^3/uL (150-450); RED BLOOD COUNT 2.66 10^6/uL (4.30-6.10); WHITE BLOOD COUNT 9.1 10^3/uL (4.0-10.0)
[2024-02-25 13:43] LABS: IRON (FE) 34 UG/DL (65-175); PERCENT SATURATION 18.4 % (19.7-50.0); TOTAL IRON BINDING CAPACITY 185 UG/DL (250-425)
[2024-02-25 13:47] LABS: ALBUMIN 2.2 G/DL (3.2-5.2); ALKALINE PHOSPHATASE 93 U/L (40-129); ALT/SGPT < 9 U/L (7.0-40); AST/SGOT 11 U/L (<34); BILIRUBIN,TOTAL 0.3 MG/DL (0.3-1.2); BLOOD UREA NITROGEN 14 MG/DL (9-23); CALCIUM LEVEL 8.8 MG/DL (8.3-10.6); CARBON DIOXIDE LEVEL 28 MMOL/L (20-31); CHLORIDE LEVEL 101 MMOL/L (98-107); CREATININE FOR GFR 1.19 MG/DL (0.70-1.30); GLOMERULAR FILTRATION RATE > 60.0 (>35); GLUCOSE, FASTING 80 MG/DL (74-106); POTASSIUM SERUM 3.7 MMOL/L (3.5-5.1); SODIUM LEVEL 139 MMOL/L (136-145); TOTAL PROTEIN 6.3 G/DL (5.7-8.2)
== END ==
LOC: M SFHCADAM 12:02
PROVIDERS: ATTEND Physician Assistant
DX: R06.09 Other forms of dyspnea (principal); D50.9 Iron deficiency anemia, unspecified; I25.10 Atherosclerotic heart disease of native coronary artery without angina pectoris; Z93.6 Other artificial openings of urinary tract status; N18.32 Chronic kidney disease, stage 3b

== ENCOUNTER → 2024-03-05 | Outpatient (REF) | payer BC, MEDICARE ==
[2024-03-05 17:39] LABS: BASO % 0.3 % (0.0-1.0); EOS # 0.1 10^3/uL (0.0-0.5); EOS % 0.5 % (0.0-3.0); HEMATOCRIT 27.9 % (42.0-52.0); HEMOGLOBIN 8.7 g/dl (13.5-17.5); LYMPH # 0.8 10^3/uL (1.5-5.0); LYMPH % 7.4 % (24.0-44.0); MEAN CORPUSCULAR HEMOGLOBIN 29.2 pg (27.0-33.0); MEAN CORPUSCULAR HGB CONC 31.2 g/dl (32.0-36.5); MEAN CORPUSCULAR VOLUME 93.6 fl (80.0-96.0); MONO # 0.7 10^3/uL (0.0-0.8); MONO % 6.2 % (2.0-8.0); NEUTROPHILS # 8.9 10^3/uL (1.5-8.5); NEUTROPHILS % 84.7 % (36.0-66.0); PLATELET COUNT, AUTOMATED 269 10^3/uL (150-450); RED BLOOD COUNT 2.98 10^6/uL (4.30-6.10); WHITE BLOOD COUNT 10.5 10^3/uL (4.0-10.0)
[2024-03-05 18:20] LABS: ALBUMIN 2.3 G/DL (3.2-5.2); ALKALINE PHOSPHATASE 91 U/L (40-129); ALT/SGPT < 9 U/L (7.0-40); AST/SGOT 13 U/L (<34); BILIRUBIN,TOTAL 0.2 MG/DL (0.3-1.2); BLOOD UREA NITROGEN 16 MG/DL (9-23); CALCIUM LEVEL 8.2 MG/DL (8.3-10.6); CARBON DIOXIDE LEVEL 27 MMOL/L (20-31); CHLORIDE LEVEL 101 MMOL/L (98-107); CREATININE FOR GFR 0.95 MG/DL (0.70-1.30); GLOMERULAR FILTRATION RATE > 60.0 (>35); GLUCOSE, FASTING 83 MG/DL (74-106); MAGNESIUM LEVEL 0.8 MG/DL (1.8-2.4); POTASSIUM SERUM 3.1 MMOL/L (3.5-5.1); SODIUM LEVEL 139 MMOL/L (136-145); TOTAL PROTEIN 6.4 G/DL (5.7-8.2)
== END ==
LOC: M SFHCADAM 14:19
PROVIDERS: ATTEND Physician Assistant
DX: I25.10 Atherosclerotic heart disease of native coronary artery without angina pectoris (principal); I48.0 Paroxysmal atrial fibrillation; N18.32 Chronic kidney disease, stage 3b; E83.42 Hypomagnesemia; D50.9 Iron deficiency anemia, unspecified; R79.89 Other specified abnormal findings of blood chemistry; Z87.39 Personal history of other diseases of the musculoskeletal system and connective tissue

== ENCOUNTER 2024-03-06 13:40 | Emergency (ER) | payer BC, MEDICARE ==
[~2024-03-06] VITALS: Ht 180.3 cm; Wt 74.1 kg
[2024-03-06] MEDS ORDERED: MAG SULF 1GM/100ML (MAG RUN) 2 GM in IV 1 EA IV STA (14:09)
[2024-03-06] MEDS: MAG SULF 1GM/100ML (MAG RUN) IV SCH (14:22)
[2024-03-06 18:00] LABS: BLOOD UREA NITROGEN 15 MG/DL (9-23); CALCIUM LEVEL 7.9 MG/DL (8.3-10.6); CARBON DIOXIDE LEVEL 28 MMOL/L (20-31); CHLORIDE LEVEL 103 MMOL/L (98-107); GLOMERULAR FILTRATION RATE > 60.0 (>35); GLUCOSE, FASTING 115 MG/DL (74-106); MAGNESIUM LEVEL 1.6 MG/DL (1.8-2.4); POTASSIUM SERUM 2.8 MMOL/L (3.5-5.1); SODIUM LEVEL 141 MMOL/L (136-145)
[2024-03-06] MEDS: POTASSIUM CHLORIDE 10MEQ SR TABLET PO ONE (18:26)
[2024-03-06] MEDS: KCL 10MEQ/100ML SWI (KRUN) 10 MEQ in IV 1 EA IV ONE (18:27)
[2024-03-06] MEDS ORDERED: POTA-151 PO (20:27)
[2024-03-06 20:57] VITALS: BP 141/65; TEMP 98.5; O2SAT 99
== END 2024-03-06 20:59 | disposition home or self-care (01) ==
LOC: M ED 13:40
DX: E83.42 Hypomagnesemia (principal); E87.6 Hypokalemia; E55.9 Vitamin D deficiency, unspecified; E53.8 Deficiency of other specified B group vitamins; G25.0 Essential tremor; N40.0 Benign prostatic hyperplasia without lower urinary tract symptoms; J30.89 Other allergic rhinitis; I71.40 Abdominal aortic aneurysm, without rupture, unspecified; Z95.1 Presence of aortocoronary bypass graft; Z87.09 Personal history of other diseases of the respiratory system; Z95.5 Presence of coronary angioplasty implant and graft; Z79.899 Other long term (current) drug therapy
CPT/HCPCS: 80048; 83735; 84132; 93005; 93041; 94760; 96365; 96366; 96375; 99285; J3475

== ENCOUNTER → 2024-03-06 | Outpatient (REF) | payer BC, MEDICARE ==
[2024-03-06 11:55] LABS: BLOOD UREA NITROGEN 16 MG/DL (9-23); CALCIUM LEVEL 8.2 MG/DL (8.3-10.6); CARBON DIOXIDE LEVEL 29 MMOL/L (20-31); CHLORIDE LEVEL 101 MMOL/L (98-107); CREATININE FOR GFR 1.15 MG/DL (0.70-1.30); GLOMERULAR FILTRATION RATE > 60.0 (>35); GLUCOSE, FASTING 91 MG/DL (74-106); MAGNESIUM LEVEL 0.9 MG/DL (1.8-2.4); POTASSIUM SERUM 3.3 MMOL/L (3.5-5.1); SODIUM LEVEL 141 MMOL/L (136-145)
== END ==
LOC: M SFHCADAM 08:49
PROVIDERS: ATTEND Physician Assistant
DX: E83.42 Hypomagnesemia (principal); E87.6 Hypokalemia

== ENCOUNTER → 2024-03-13 | Outpatient (REF) | payer BC, MEDICARE ==
[2024-03-13 18:17] LABS: HEMATOCRIT 24.7 % (42.0-52.0); HEMOGLOBIN 7.6 g/dl (13.5-17.5); MEAN CORPUSCULAR HGB CONC 30.8 g/dl (32.0-36.5); MEAN CORPUSCULAR VOLUME 94.3 fl (80.0-96.0); PLATELET COUNT, AUTOMATED 251 10^3/uL (150-450); RED BLOOD COUNT 2.62 10^6/uL (4.30-6.10)
[2024-03-13 18:38] LABS: ALBUMIN 2.1 G/DL (3.2-5.2); ALKALINE PHOSPHATASE 86 U/L (40-129); ALT/SGPT < 9 U/L (7.0-40); AST/SGOT 12 U/L (<34); BILIRUBIN,TOTAL 0.3 MG/DL (0.3-1.2); BLOOD UREA NITROGEN 18 MG/DL (9-23); CALCIUM LEVEL 9.2 MG/DL (8.3-10.6); CARBON DIOXIDE LEVEL 25 MMOL/L (20-31); CHLORIDE LEVEL 98 MMOL/L (98-107); CREATININE FOR GFR 1.34 MG/DL (0.70-1.30); GLOMERULAR FILTRATION RATE 54.2 (>35); GLUCOSE, FASTING 64 MG/DL (74-106); MAGNESIUM LEVEL 1.3 MG/DL (1.8-2.4); SODIUM LEVEL 136 MMOL/L (136-145); TOTAL PROTEIN 6.2 G/DL (5.7-8.2)
== END ==
LOC: M LAB REF 17:26
PROVIDERS: ATTEND Physician Assistant
DX: I25.10 Atherosclerotic heart disease of native coronary artery without angina pectoris (principal); Z87.39 Personal history of other diseases of the musculoskeletal system and connective tissue; E83.42 Hypomagnesemia; D50.9 Iron deficiency anemia, unspecified; N18.32 Chronic kidney disease, stage 3b; R79.89 Other specified abnormal findings of blood chemistry; I48.0 Paroxysmal atrial fibrillation

== ENCOUNTER → 2024-03-18 | Outpatient (REF) | payer BC, MEDICARE | LOC: M SFHCADAM 12:51 | PROVIDERS: ATTEND Physician Assistant | DX: R82.90 Unspecified abnormal findings in urine (principal) ==

== ENCOUNTER → 2024-04-02 | Outpatient (REF) | payer BC, MEDICARE ==
[2024-04-02 14:38] LABS: HEMATOCRIT 25.9 % (42.0-52.0); HEMOGLOBIN 8.1 g/dl (13.5-17.5); MEAN CORPUSCULAR HEMOGLOBIN 29.1 pg (27.0-33.0); MEAN CORPUSCULAR HGB CONC 31.3 g/dl (32.0-36.5); MEAN CORPUSCULAR VOLUME 93.2 fl (80.0-96.0); PLATELET COUNT, AUTOMATED 299 10^3/uL (150-450); RED BLOOD COUNT 2.78 10^6/uL (4.30-6.10); WHITE BLOOD COUNT 9.5 10^3/uL (4.0-10.0)
[2024-04-02 15:12] LABS: BLOOD UREA NITROGEN 21 MG/DL (9-23); CALCIUM LEVEL 8.7 MG/DL (8.3-10.6); CARBON DIOXIDE LEVEL 28 MMOL/L (20-31); CHLORIDE LEVEL 97 MMOL/L (98-107); GLOMERULAR FILTRATION RATE > 60.0 (>35); GLUCOSE, FASTING 76 MG/DL (74-106); MAGNESIUM LEVEL 1.8 MG/DL (1.8-2.4); SODIUM LEVEL 139 MMOL/L (136-145)
[2024-04-02 15:14] LABS: FERRITIN 571.7 NG/ML (10.5-307.3)
== END ==
LOC: M LAB REF 11:35
PROVIDERS: ATTEND Physician Assistant
DX: R82.90 Unspecified abnormal findings in urine (principal); Z86.2 Personal history of diseases of the blood and blood-forming organs and certain disorders involving the immune mechanism; N18.32 Chronic kidney disease, stage 3b; E87.6 Hypokalemia; I25.10 Atherosclerotic heart disease of native coronary artery without angina pectoris; E83.42 Hypomagnesemia

== ENCOUNTER → 2024-05-01 | Outpatient (REF) | payer BC, MEDICARE ==
[2024-05-01 18:00] LABS: BASO % 0.4 % (0.0-1.0); EOS # 0.1 10^3/uL (0.0-0.5); EOS % 0.5 % (0.0-3.0); HEMATOCRIT 29.2 % (42.0-52.0); LYMPH % 8.9 % (24.0-44.0); MEAN CORPUSCULAR HEMOGLOBIN 28.2 pg (27.0-33.0); MEAN CORPUSCULAR HGB CONC 30.8 g/dl (32.0-36.5); MEAN CORPUSCULAR VOLUME 91.5 fl (80.0-96.0); MONO % 8.8 % (2.0-8.0); NEUTROPHILS # 8.8 10^3/uL (1.5-8.5); NEUTROPHILS % 80.6 % (36.0-66.0); PLATELET COUNT, AUTOMATED 317 10^3/uL (150-450); RED BLOOD COUNT 3.19 10^6/uL (4.30-6.10)
[2024-05-01 18:05] LABS: CALCIUM LEVEL 8.8 MG/DL (8.3-10.6); CREATININE FOR GFR 1.24 MG/DL (0.70-1.30); GLOMERULAR FILTRATION RATE 59.3 (>35); MAGNESIUM LEVEL 1.8 MG/DL (1.8-2.4); PERCENT SATURATION 10.6 % (19.7-50.0); POTASSIUM SERUM 4.6 MMOL/L (3.5-5.1)
[2024-05-01 18:08] LABS: FERRITIN 874.8 NG/ML (10.5-307.3)
== END ==
LOC: M SFHCADAM 11:12
PROVIDERS: ATTEND Physician Assistant
DX: N18.32 Chronic kidney disease, stage 3b (principal); I48.0 Paroxysmal atrial fibrillation; Z93.6 Other artificial openings of urinary tract status; J44.9 Chronic obstructive pulmonary disease, unspecified; I87.2 Venous insufficiency (chronic) (peripheral); I25.10 Atherosclerotic heart disease of native coronary artery without angina pectoris; G25.0 Essential tremor; D50.9 Iron deficiency anemia, unspecified

== ENCOUNTER → 2024-06-08 | Outpatient (REF) | payer BC, MEDICARE ==
[2024-06-08 13:39] LABS: BASO % 0.3 % (0.0-1.0); EOS # 0.1 10^3/uL (0.0-0.5); EOS % 0.9 % (0.0-3.0); HEMATOCRIT 26.4 % (42.0-52.0); HEMOGLOBIN 8.5 g/dl (13.5-17.5); LYMPH % 10.5 % (24.0-44.0); MEAN CORPUSCULAR HEMOGLOBIN 28.5 pg (27.0-33.0); MEAN CORPUSCULAR HGB CONC 32.2 g/dl (32.0-36.5); MEAN CORPUSCULAR VOLUME 88.6 fl (80.0-96.0); MONO % 10.3 % (2.0-8.0); NEUTROPHILS # 7.2 10^3/uL (1.5-8.5); NEUTROPHILS % 77.4 % (36.0-66.0); PLATELET COUNT, AUTOMATED 321 10^3/uL (150-450); RED BLOOD COUNT 2.98 10^6/uL (4.30-6.10); WHITE BLOOD COUNT 9.3 10^3/uL (4.0-10.0)
[2024-06-08 14:08] LABS: ALKALINE PHOSPHATASE 101 U/L (40-129); ALT/SGPT 12 U/L (7.0-40); AST/SGOT 15 U/L (<34); BILIRUBIN,TOTAL 0.3 MG/DL (0.3-1.2); BLOOD UREA NITROGEN 17 MG/DL (9-23); CALCIUM LEVEL 8.9 MG/DL (8.3-10.6); CARBON DIOXIDE LEVEL 26 MMOL/L (20-31); CHLORIDE LEVEL 100 MMOL/L (98-107); CREATININE FOR GFR 1.06 MG/DL (0.70-1.30); GLOMERULAR FILTRATION RATE > 60.0 (>35); GLUCOSE, FASTING 104 MG/DL (74-106); SODIUM LEVEL 135 MMOL/L (136-145); TOTAL PROTEIN 6.2 G/DL (5.7-8.2)
[2024-06-08 14:24] LABS: C REACTIVE PROTEIN QUANTITATIV 12.88 MG/DL (<1.0)
== END ==
LOC: M SHH 13:03
PROVIDERS: ATTEND Physician Assistant
DX: K68.19 Other retroperitoneal abscess (principal); I71.43 Infrarenal abdominal aortic aneurysm, without rupture; Z48.03 Encounter for change or removal of drains; B96.89 Other specified bacterial agents as the cause of diseases classified elsewhere

== ENCOUNTER → 2024-06-16 | Outpatient (REF) | payer BC, MEDICARE ==
[2024-06-16 13:53] LABS: BASO % 0.4 % (0.0-1.0); EOS # 0.1 10^3/uL (0.0-0.5); EOS % 0.7 % (0.0-3.0); HEMATOCRIT 29.9 % (42.0-52.0); HEMOGLOBIN 9.1 g/dl (13.5-17.5); LYMPH # 1.1 10^3/uL (1.5-5.0); LYMPH % 13.6 % (24.0-44.0); MEAN CORPUSCULAR HEMOGLOBIN 27.3 pg (27.0-33.0); MEAN CORPUSCULAR HGB CONC 30.4 g/dl (32.0-36.5); MEAN CORPUSCULAR VOLUME 89.8 fl (80.0-96.0); MONO # 0.9 10^3/uL (0.0-0.8); MONO % 11.3 % (2.0-8.0); NEUTROPHILS # 6.1 10^3/uL (1.5-8.5); NEUTROPHILS % 73.4 % (36.0-66.0); PLATELET COUNT, AUTOMATED 280 10^3/uL (150-450); RED BLOOD COUNT 3.33 10^6/uL (4.30-6.10); WHITE BLOOD COUNT 8.3 10^3/uL (4.0-10.0)
[2024-06-16 13:56] LABS: VANCOMYCIN LEVEL TROUGH 17.3 UG/ML (10.0-20.0)
[2024-06-16 13:57] LABS: ALBUMIN 2.4 G/DL (3.2-5.2); BILIRUBIN,TOTAL 0.3 MG/DL (0.3-1.2); CALCIUM LEVEL 8.6 MG/DL (8.3-10.6); CREATININE FOR GFR 1.17 MG/DL (0.70-1.30); GLOMERULAR FILTRATION RATE 61.9 (>35); POTASSIUM SERUM 3.9 MMOL/L (3.5-5.1); TOTAL PROTEIN 6.5 G/DL (5.7-8.2)
[2024-06-16 14:56] LABS: C REACTIVE PROTEIN QUANTITATIV 12.93 MG/DL (<1.0)
== END ==
LOC: M SHH 13:10
PROVIDERS: ATTEND Internal Medicine Infectious Disease
DX: K68.19 Other retroperitoneal abscess (principal); B96.89 Other specified bacterial agents as the cause of diseases classified elsewhere; Z48.03 Encounter for change or removal of drains; I71.43 Infrarenal abdominal aortic aneurysm, without rupture

== ENCOUNTER → 2024-06-22 | Outpatient (REF) | payer BC, MEDICARE ==
[2024-06-22 14:50] LABS: BASO % 0.5 % (0.0-1.0); EOS # 0.1 10^3/uL (0.0-0.5); EOS % 1.4 % (0.0-3.0); HEMATOCRIT 29.4 % (42.0-52.0); HEMOGLOBIN 9.1 g/dl (13.5-17.5); LYMPH # 1.1 10^3/uL (1.5-5.0); LYMPH % 12.5 % (24.0-44.0); MEAN CORPUSCULAR VOLUME 90.5 fl (80.0-96.0); MONO # 0.9 10^3/uL (0.0-0.8); MONO % 10.4 % (2.0-8.0); NEUTROPHILS # 6.6 10^3/uL (1.5-8.5); NEUTROPHILS % 74.4 % (36.0-66.0); PLATELET COUNT, AUTOMATED 264 10^3/uL (150-450); RED BLOOD COUNT 3.25 10^6/uL (4.30-6.10); WHITE BLOOD COUNT 8.9 10^3/uL (4.0-10.0)
[2024-06-22 14:54] LABS: ALBUMIN 2.4 G/DL (3.2-5.2); BILIRUBIN,TOTAL 0.2 MG/DL (0.3-1.2); C REACTIVE PROTEIN QUANTITATIV 8.63 MG/DL (<1.0); CALCIUM LEVEL 8.6 MG/DL (8.3-10.6); CREATININE FOR GFR 1.06 MG/DL (0.70-1.30); GLOMERULAR FILTRATION RATE 69.6 (>35); POTASSIUM SERUM 4.1 MMOL/L (3.5-5.1); TOTAL PROTEIN 6.3 G/DL (5.7-8.2); VANCOMYCIN LEVEL TROUGH 16.3 UG/ML (10.0-20.0)
== END ==
LOC: M SHH 14:13
PROVIDERS: ATTEND Physician Assistant
DX: K68.19 Other retroperitoneal abscess (principal); B96.89 Other specified bacterial agents as the cause of diseases classified elsewhere; Z48.03 Encounter for change or removal of drains; I71.43 Infrarenal abdominal aortic aneurysm, without rupture

== ENCOUNTER → 2024-06-30 | Outpatient (REF) | payer BC, MEDICARE ==
[2024-06-30 14:07] LABS: BASO # 0.1 10^3/uL (0.0-0.2); BASO % 0.5 % (0.0-1.0); EOS # 0.1 10^3/uL (0.0-0.5); EOS % 0.6 % (0.0-3.0); HEMATOCRIT 29.6 % (42.0-52.0); LYMPH % 10.3 % (24.0-44.0); MEAN CORPUSCULAR HEMOGLOBIN 27.4 pg (27.0-33.0); MEAN CORPUSCULAR HGB CONC 30.4 g/dl (32.0-36.5); MONO # 0.7 10^3/uL (0.0-0.8); MONO % 7.5 % (2.0-8.0); NEUTROPHILS # 7.5 10^3/uL (1.5-8.5); NEUTROPHILS % 80.7 % (36.0-66.0); PLATELET COUNT, AUTOMATED 292 10^3/uL (150-450); RED BLOOD COUNT 3.29 10^6/uL (4.30-6.10); WHITE BLOOD COUNT 9.3 10^3/uL (4.0-10.0)
[2024-06-30 14:31] LABS: C REACTIVE PROTEIN QUANTITATIV 8.56 MG/DL (<1.0); VANCOMYCIN LEVEL TROUGH 17.6 UG/ML (10.0-20.0)
[2024-06-30 14:32] LABS: ALBUMIN 2.2 G/DL (3.2-5.2); BILIRUBIN,TOTAL 0.3 MG/DL (0.3-1.2); CALCIUM LEVEL 8.8 MG/DL (8.3-10.6); CREATININE FOR GFR 1.15 MG/DL (0.70-1.30); GLOMERULAR FILTRATION RATE 63.2 (>35); TOTAL PROTEIN 6.3 G/DL (5.7-8.2)
== END ==
LOC: M SHH 12:55
PROVIDERS: ATTEND Physician Assistant
DX: K68.19 Other retroperitoneal abscess (principal); B96.89 Other specified bacterial agents as the cause of diseases classified elsewhere; Z48.03 Encounter for change or removal of drains; I71.43 Infrarenal abdominal aortic aneurysm, without rupture

== ENCOUNTER → 2024-07-06 | Outpatient (REF) | payer BC, MEDICARE ==
[2024-07-06 13:59] LABS: BASO # 0.1 10^3/uL (0.0-0.2); BASO % 0.5 % (0.0-1.0); EOS # 0.1 10^3/uL (0.0-0.5); HEMATOCRIT 32.3 % (42.0-52.0); HEMOGLOBIN 9.8 g/dl (13.5-17.5); LYMPH # 1.9 10^3/uL (1.5-5.0); LYMPH % 18.4 % (24.0-44.0); MEAN CORPUSCULAR HEMOGLOBIN 27.9 pg (27.0-33.0); MEAN CORPUSCULAR HGB CONC 30.3 g/dl (32.0-36.5); MONO % 10.2 % (2.0-8.0); NEUTROPHILS # 7.1 10^3/uL (1.5-8.5); NEUTROPHILS % 69.2 % (36.0-66.0); PLATELET COUNT, AUTOMATED 294 10^3/uL (150-450); RED BLOOD COUNT 3.51 10^6/uL (4.30-6.10); VANCOMYCIN LEVEL TROUGH 14.3 UG/ML (10.0-20.0); WHITE BLOOD COUNT 10.2 10^3/uL (4.0-10.0)
[2024-07-06 14:02] LABS: ALBUMIN 2.2 G/DL (3.2-5.2); BILIRUBIN,TOTAL 0.3 MG/DL (0.3-1.2); C REACTIVE PROTEIN QUANTITATIV 9.93 MG/DL (<1.0); CALCIUM LEVEL 8.8 MG/DL (8.3-10.6); GLOMERULAR FILTRATION RATE 74.7 (>35); POTASSIUM SERUM 4.2 MMOL/L (3.5-5.1); TOTAL PROTEIN 6.7 G/DL (5.7-8.2)
== END ==
LOC: M SHH 12:44
PROVIDERS: ATTEND Internal Medicine Infectious Disease
DX: K68.19 Other retroperitoneal abscess (principal); B96.89 Other specified bacterial agents as the cause of diseases classified elsewhere; Z48.03 Encounter for change or removal of drains; I71.43 Infrarenal abdominal aortic aneurysm, without rupture

== ENCOUNTER → 2024-11-11 | Outpatient (CLI) | payer BC, MEDICARE ==
[~2024-11-11] MED LIST changes: -ANDR1.62 TOP; -IBUP-1022 PO; +IBUP600T42 PO; +TEST75GE10 TOP
[2024-11-11 19:08] LABS: ALT/SGPT 22.0 U/L (7.0-40); AST/SGOT 28.0 U/L (<34); BASO # 0.0 10^3/uL (0.0-0.2); BASO % 0.2 % (0.0-1.0); CALCIUM LEVEL 9.3 MG/DL (8.3-10.6); CARBON DIOXIDE LEVEL 26.0 MMOL/L (20-31); CHLORIDE LEVEL 102.0 MMOL/L (98-107); CREATININE FOR GFR 1.15 MG/DL (0.70-1.30); EOS # 0.0 10^3/uL (0.0-0.5); EOS % 0.3 % (0.0-3.0); GLOMERULAR FILTRATION RATE 63.2 (>35); IRON (FE) 17.0 UG/DL (65-175); LYMPH # 1.0 10^3/uL (1.5-5.0); LYMPH % 8.1 % (24.0-44.0); MAGNESIUM LEVEL 1.9 MG/DL (1.8-2.4); MONO # 1.2 10^3/uL (0.0-0.8); MONO % 9.1 % (2.0-8.0); NEUTROPHILS # 10.4 10^3/uL (1.5-8.5); NEUTROPHILS % 81.4 % (36.0-66.0); PERCENT SATURATION 8.9 % (19.7-50.0); PLATELET COUNT, AUTOMATED 354 10^3/uL (150-450); POTASSIUM SERUM 4.7 MMOL/L (3.5-5.1); SODIUM LEVEL 138.0 MMOL/L (136-145)
[2024-11-11 19:10] LABS: VITAMIN B12 LEVEL 788.0 PG/ML (211-911)
== END ==
LOC: M LABDRWAD 11:48
PROVIDERS: ATTEND Physician Assistant
DX: N18.31 Chronic kidney disease, stage 3a (principal); J44.9 Chronic obstructive pulmonary disease, unspecified; I48.0 Paroxysmal atrial fibrillation; E83.42 Hypomagnesemia; E78.00 Pure hypercholesterolemia, unspecified; I25.10 Atherosclerotic heart disease of native coronary artery without angina pectoris; D50.9 Iron deficiency anemia, unspecified; N15.1 Renal and perinephric abscess; Z93.6 Other artificial openings of urinary tract status

== ENCOUNTER → 2025-01-15 | Outpatient (REF) | payer MEDICARE, BC ==
[2025-01-15 14:05] LABS: PLATELET COUNT, AUTOMATED 335 10^3/uL (150-450)
[2025-01-15 14:12] LABS: IRON (FE) 19.0 UG/DL (65-175)
[2025-01-15 14:13] LABS: ALT/SGPT 14.0 U/L (7.0-40); AST/SGOT 21.0 U/L (<34); CALCIUM LEVEL 8.8 MG/DL (8.3-10.6); CARBON DIOXIDE LEVEL 24.0 MMOL/L (20-31); CHLORIDE LEVEL 101.0 MMOL/L (98-107); CREATININE FOR GFR 1.21 MG/DL (0.70-1.30); GLOMERULAR FILTRATION RATE 59.4 (>35); PERCENT SATURATION 9.0 % (19.7-50.0); POTASSIUM SERUM 4.2 MMOL/L (3.5-5.1); SODIUM LEVEL 139.0 MMOL/L (136-145)
== END ==
LOC: M SFHCADAM 10:25
PROVIDERS: ATTEND Physician Assistant
DX: K68.19 Other retroperitoneal abscess (principal); Z93.6 Other artificial openings of urinary tract status; N18.32 Chronic kidney disease, stage 3b; Z86.2 Personal history of diseases of the blood and blood-forming organs and certain disorders involving the immune mechanism; G47.33 Obstructive sleep apnea (adult) (pediatric); I25.10 Atherosclerotic heart disease of native coronary artery without angina pectoris